=== PATIENT | female | born 1940 | race Caucasian/White ===

== ENCOUNTER 2021-06-11 12:15 | Emergency (ER) | payer MEDICARE, OTHER, SELFPAY ==
[2021-06-11 12:17] VITALS: BP 172/76; PULSE 66; RESP 17; TEMP 36.6; O2SAT 99; BMI 35.3
--- NOTE | 2021-06-11 12:32 | EKG12_ITS ---
Test Reason : NAUSEA/VOMITING Blood Pressure : / mmHG Vent. Rate : 061 BPM Atrial Rate : 061 BPM P-R Int : 174 ms QRS Dur : 098 ms QT Int : 418 ms P-R-T Axes : 036 008 022 degrees QTc Int : 420 ms Sinus rhythm with Premature supraventricular complexes Otherwise normal ECG Confirmed by LINDA MORSE, CHRISSY ([id number]), newspaper or periodical editor MAXIMO CALVO ([id number]) on 06/15/2021 9:17:45 AM Referred By: TRUONG Confirmed By:CHRISSY MCKEON MD
--- NOTE | 2021-06-11 12:33 | EX.ED.DYSGE1 ---
HPI History of Present Illness Chief Complaint: Nausea/Vomiting Informant: patient and spouse/S.O. Narrative Narrative: Patient presents with episode of vomiting and generalized weakness at home. It seems to be resolved now. At about 730 this morning she went to the bathroom. states she was in there for about 15 minutes so he checked on her. She had had a normal-appearing bowel movement without blood or diarrhea. She just stated that she did not feel well. He got her up and got her to the bed. After a while in bed, she stated that she felt like she was going to get sick. They got her up and she vomited into garbage can. He states it looked like normal yellow bile but did have a few dark specks in it. He did not see any blood. She never had chest pain. She denies abdominal pain. She feels back to normal now. Patient does have some dementia but I think she is able to give a reasonable history. She is certainly able to explain current symptoms or lack thereof. Patient is not on any blood thinners. Evidently no abnormal foods recently. The has not had any symptoms. She was not syncopal. Nothing specifically seem to make symptoms better or worse. [facility] Medical History Dementia Hypertension Kidney disease Home Medications cyanocobalamin (vitamin B-12) 1,000 mcg IM Q30D 12/10/16 [History Last Taken Unknown] donepezil 5 mg PO QHS 12/10/16 [History Last Taken 12/10/16] hydrocortisone acetate [Anusol Hc] 25 mg RECTAL BID PRN PRN 12/10/16 [History Last Taken 12/10/16] ibuprofen 200 mg PO Q6H PRN PRN 12/10/16 [History Last Taken Unknown] levothyroxine 112 mcg PO DAILY 12/10/16 [History Last Taken 12/10/16] metoprolol succinate [Toprol Xl] 25 mg PO DAILY 12/10/16 [History Last Taken 12/10/16] Allergy/AdvReac Type Severity Reaction Status Date / Time estrogens, conjugated Allergy Itching Verified 06/11/21 12:17 [From Premarin] medroxyprogesterone Allergy Unknown Verified 06/11/21 12:17 nitrofurantoin Allergy Itching Verified 06/11/21 12:17 [From Furadantin] sulfamethoxazole Allergy Swelling Verified 06/11/21 12:17 [From Bactrim] trimethoprim [From Bactrim] Allergy Swelling Verified 06/11/21 12:17 Social History Smoking Status: Former smoker ROS ROS ED Constitutional Constitutional ED: Denies chills, fever(s) or sweats Eyes Eyes: Denies blurry vision ENT ENT ED: Denies rhinorrhea or sore throat Cardiovascular Cardiovascular: Denies chest pain, palpitations or racing heartbeat Respiratory/Chest Respiratory/Chest: Denies cough or dyspnea Gastrointestinal Gastrointestinal: Reports nausea and vomiting; Denies abdominal pain, constipation, diarrhea or melena Genitourinary Genitourinary ED: Reports other Details: Denies any recent change in urine. ; Denies dysuria, hematuria or urinary frequency Musculoskeletal Musculoskeletal: Denies arthralgias, myalgias or neck pain Integumentary Denies rash Neurologic Neurologic: Denies headache(s) Psychiatric Psychiatric: Reports other Details: She does have history of dementia. ; Denies anxiety or depression Endocrine Endocrinology: Denies polydipsia or polyuria Allergic/Immunologic Allergic/Immunologic ED: Denies mouth swelling or urticaria EXAM Physical Exam Const Vital Signs: 06/11/21 12:17 06/11/21 15:29 Temperature 97.8 F Temperature Source Oral Pulse Rate 66 75 Respiratory Rate 17 18 Blood Pressure 172/76 H 155/81 H Blood Pressure Mean 108 105 Pulse Ox 99 98 Oxygen Delivery Method Room Air Room Air Positive well nourished and well developed Constitutional Narrative: Patient is sitting quietly in bed. She looks comfortable. She is nontoxic. She is pleasant. She is denying really any symptoms at this time. General Appearance ED: well developed and NAD; Negative for cyanotic, diaphoretic or pallor HEENT Reports moist mucous membranes Negative for trauma or tenderness Eyes General Eye ED: Negative for pale conjunctiva or scleral icterus Neck no JVD Chest Wall inspection of chest normal Resp normal respiratory effort and clear to auscultation bilaterally Effort and Inspection: Negative for pain with movement Auscultation: Negative for rales, rhonchi or wheezes Cardio regular rate and regular rhythm GI normal to inspection, nondistended, normoactive bowel sounds, non-tender and non-distended GI Narrative: Her abdomen is actually completely benign at this time. Of note, did bring in some emesis. It is darker brown liquid. He states it was yellow with some dark specks but he thinks he mixed up. It does not look red. Palpation: soft Back/Spine no CVA tenderness Extremity normal to inspection General Extremety ED: Negative for tenderness Neuro Neuro Narrative: Patient alert and appropriate. Reasonable informant. Baseline per . Sensorium / Orientation: alert Psych mental status grossly normal Skin no rashes or lesions noted and skin turgor normal General Skin Exam: Negative for jaundice or pallor MDM MDM MDM Narrative Medical decision making narrative: CBC is normal. Electrolytes show no marked abnormalities. Glucose is minimally up at 131. TSH is a little bit low but that can be followed up. She may need to alter her thyroid meds. This can be done as an outpatient. They will likely have a history of prior levels. Urine is clean. Troponin is negative. Patient is really asymptomatic at this point. They would like to go home. I think this is reasonable. We discussed reasons to return. Lab Data Attestation: I reviewed the patient's lab results. Labs: Laboratory Results - last 24 hr 06/11/21 06/11/21 06/11/21 12:52 12:52 15:20 WBC 7.0 RBC 4.49 Hgb 13.4 Hct 40.7 MCV 90.6 MCH 29.8 MCHC 32.9 RDW Std Deviation 42.5 RDW Coeff of Isa 12.8 Plt Count 242 MPV 10.7 Immature Gran % (Auto) 0.400 Neut % (Auto) 82.4 H Lymph % (Auto) 10.8 L [place] % (Auto) 5.1 Eos % (Auto) 0.9 Baso % (Auto) 0.4 Absolute Neuts (auto) 5.8 Absolute Lymphs (auto) 0.76 L Nucleated RBC % 0 Sodium 139 Potassium 3.7 Chloride 108 H Carbon Dioxide 28.0 Anion Gap 3 L BUN 15 Creatinine 0.96 Estim Creat Clear Calc 42.76 Est GFR (MDRD) Af Amer 72 Est GFR (MDRD) Non-Af 59 L BUN/Creatinine Ratio 15.6 Glucose 131 H Calcium 8.7 Total Bilirubin 0.60 AST 15 ALT 17 Alkaline Phosphatase 78 Troponin I High Sens 6 Total Protein 7.3 Albumin 3.7 Globulin 3.6 Albumin/Globulin Ratio 1.0 Lipase 334 TSH 0.16 L Urine Color Yellow Urine Clarity Clear Urine pH 6.0 Ur Specific [place] 1.015 Urine Protein Negative Urine Glucose (UA) Normal Urine Ketones 5 H Urine Occult Blood 50 H Urine Nitrite Negative Urine Bilirubin Negative Urine Urobilinogen Normal Ur Leukocyte Esterase 25 H EKG Initial EKG: Comments: EKG done for of generalized weakness nausea and vomiting. EKG read by me shows a normal sinus rhythm with occasional PAC and compensatory pause. Overall rate of 61. No acute ST elevation or depression consistent with infarct or ischemia. FL interval, QRS duration and QTc normal. No old for comparison Discharge Plan Triage Chief Complaint: Nausea/Vomiting ED Provider: Chandu Vann Dx/Rx/DC Orders Clinical Impression: Episodic weakness, Nausea & vomiting Instructions: ED Vomiting (Adult) Prescriptions: No Action donepezil 5 MG tablet 5 mg PO QHS RF: 0 metoprolol succinate [Toprol XL] 50 MG Tab.Er.24h 25 mg PO DAILY RF: 0 ibuprofen 200 MG capsule 200 mg PO Q6H PRN PRN (Reason: Pain) RF: 0 hydrocortisone acetate [Anucort-HC] 25 MG Suppos. 25 mg RECTAL BID PRN PRN (Reason: Hemorrhoids) RF: 0 cyanocobalamin (vitamin B-12) 1,000 MCG/ML Vial 1,000 mcg IM Q30D RF: 0 levothyroxine 112 MCG tablet 112 mcg PO DAILY RF: 0 Primary Care Provider: Yaneth Bernal Referrals: Yaneth Bernal MD [Primary Care Provider] - 3-5 Days Activity Restrictions/Additional Instructions: Follow-up with your physician. They may need adjustment of your thyroid medications. That can be done as an outpatient. Disposition Disposition: Home, Self Care
[2021-06-11 13:04] LABS: Absolute Lymphocyte Count 0.76 X10^3/uL (0.83-4.51); Absolute Neutrophil Count 5.8 X10^3/uL (2.0-7.7); Basophil# 0.03 X10^3/uL; Basophil% 0.4 % (0-1); Eosinophil# 0.06 X10^3/uL; Eosinophils% 0.9 % (0-5); Hematocrit 40.7 % (37-47); Hemoglobin 13.4 g/dL (12.0-15.0); Lymphocyte # 0.76 X10^3/ul (0.83-4.51); Lymphocyte % 10.8 % (19-41); Mean Corp Hgb Conc 32.9 g/dL (32-36); Mean Corpuscular Hgb 29.8 pg (27.0-32.0); Mean Corpuscular Volume 90.6 fL (81-99); Mean Platelet Vol. 10.7 fl (6.2-12.0); Monocyte# 0.36 X10^3/uL; Monocyte% 5.1 % (0-10); NRBC Flagged by Analyzer 0 % (0-5); Neutrophil # 5.77 X10^3/uL (2.7-7.7); Neutrophil % 82.4 % (47-70); Platelet Count 242 K/mm3 (150-450); RBC Distribution Width CV 12.8 % (11.6-14.6); RBC Distribution Width SD 42.5 fl (35.1-43.9); Red Blood Count 4.49 M/mm3 (4.2-5.4)
[2021-06-11 13:29] LABS: AST(SGOT) 15 U/L (15-37); Alanine Aminotransfer ALT/SGPT 17 U/L (13-56); Albumin, Serum 3.7 g/dL (3.2-5.0); Alkaline Phosphatase 78 U/L (45-117); Anion Gap 3 (5-15); BUN 15 mg/dL (7-18); BUN/Creat Ratio 15.6 RATIO (10-20); Calcium,Total 8.7 mg/dL (8.5-10.1); Chloride 108 mmol/L (98-107); Creatinine, Serum 0.96 mg/dL (0.55-1.02); EST Glomerular Filtration Rate 59 mL/min (>60); Est Glom Filt Rate - Afr Amer 72 mL/min (>60); Estimated Creatinine Clearance 42.76 ml/min; Globulin 3.6 g/dL (2.2-4.2); Glucose 131 mg/dL (74-106); Lipase 334 U/L (73-393); Potassium 3.7 mmol/L (3.5-5.1); Protein, Total 7.3 g/dL (6.4-8.2); Sodium Level 139 mmol/L (136-145); Thyroid Stim Hormone (TSH) 0.16 uIU/mL (0.358-3.74); Troponin-I HS 6 pg/mL (3.0-54.0)
[2021-06-11 15:25] LABS: Bacteria 0 SEEN /hpf (None Seen); Mucous, Urine 0 SEEN /hpf (<or=2+); Squamous Epithelial Cells - UA 0 SEEN /hpf (5-10)
[2021-06-11 15:29] VITALS: BP 155/81; PULSE 75; RESP 18; O2SAT 98
[2021-06-11 15:32] LABS: Color, Urine Yellow (Yellow); Glucose, Dipstick Normal (Normal); Ketone-Dipstick 5 mg/dl (Negative); Leukocyte Esterase-Dipstick 25 /ul (Negative); Nitrite-Dipstick Negative (Negative); Occult Blood-Urine 50 /ul (Negative); Protein-Dipstick Negative (Negative); Specific Gravity, Urine 1.015 (1.002-1.030); Urine Bilirubin Dipstick Negative (Negative); Urine Clarity Clear (Clear); Urine Urobilinogen Normal (Normal)
[2021-06-11 15:42] LABS: Red Blood Cells-Urine 0-5 SEEN /hpf (0-5); White Blood Cells 0-5 SEEN /hpf (0-5)
[2021-06-11 15:54] VITALS: BP 158/73; PULSE 84; RESP 16; O2SAT 99
== END 2021-06-11 15:56 | disposition home or self-care (01) ==
PROVIDERS: Emergency Provider Emergency Medicine; PCP Internal Medicine; Visit Provider Emergency Medicine
DX: R11.2 Nausea with vomiting, unspecified (principal); F03.90 Unspecified dementia, unspecified severity, without behavioral disturbance, psychotic disturbance, mood disturbance, and anxiety; R53.1 Weakness; I10 Essential (primary) hypertension; Z79.899 Other long term (current) drug therapy; Z87.891 Personal history of nicotine dependence
CPT/HCPCS: 80053; 81001; 82271; 83690; 84443; 84484; 85025; 93005; 99285

== ENCOUNTER 2023-08-19 14:56 | Emergency (ER) | payer MEDICARE, OTHER, SELFPAY ==
[2023-08-19 14:56] VITALS: BP 139/81; PULSE 77; RESP 16; TEMP 35.5; O2SAT 97; BMI 29.3
--- NOTE | 2023-08-19 15:52 | CT_ITS ---
EXAM: CT ABDOMEN AND PELVIS WITH INTRAVENOUS CONTRAST CLINICAL INDICATION: Abdominal Pain TECHNIQUE: Helically acquired images were obtained of the abdomen and pelvis with intravenous contrast. This CT exam was performed using one or more of the following dose reduction techniques: automated exposure control, adjustment of the mA and/or kV according to patient size, and/or use of iterative reconstruction technique. CONTRAST: IV 100mL Isovue-370 RADIATION DOSE: CTDIvol = 15.92 mGy, DLP = 753.38 mGy-cm COMPARISON: No relevant prior studies available. FINDINGS: LOWER THORAX: Unremarkable. Lung bases are clear. No cardiomegaly. No significant pericardial effusion. ABDOMEN: LIVER: Unremarkable. Homogeneous. No focal mass. GALLBLADDER AND BILE DUCTS: Cholecystectomy. No intra- or extrahepatic biliary ductal dilation. PANCREAS: Unremarkable. No focal cystic or solid mass. SPLEEN: Unremarkable. Normal size without focal cystic or solid mass. ADRENALS: Unremarkable. No nodules. KIDNEYS AND URETERS: No acute renal abnormalities. Bilateral simple renal cysts. Normal renal size and position. No hydronephrosis. STOMACH AND BOWEL: Evaluation of the GI tract is limited by absence of oral contrast. Cannot exclude stomach wall thickening. No dilated loops of bowel or evidence for obstruction. Cannot exclude segmental thickening of the rojo of the small or large bowel. Cannot exclude enteritis or colitis. Moderate diffuse fecal retention. Diverticulosis without definite diverticulitis. Appendix within normal limits. PELVIS: APPENDIX: No evidence of acute appendicitis. BLADDER: Unremarkable. REPRODUCTIVE: Absent uterus. ABDOMEN and PELVIS: INTRAPERITONEAL SPACE: Unremarkable. No ascites or other fluid collection. No free air. BONES/JOINTS: Degenerative changes throughout the spine. No suspicious lytic or blastic abnormality. SOFT TISSUES: Unremarkable. No discrete abdominal or pelvic wall hernia. VASCULATURE: Tortuous calcified aorta and iliac arteries with no aneurysm. LYMPH NODES: Unremarkable. No enlarged lymph nodes. CT/Abdomen/Pelvis W IV Cont ONLY IMPRESSION: No definite acute or significant abnormality seen. Electronically Signed: Stan Baca MD at 19:57 EDT ,
--- NOTE | 2023-08-19 15:53 | EDS_ITS ---
HPI HPI - GI History of Present Illness Chief Complaint: Abd Pain Narrative Narrative: History and physical limited secondary to dementia. 83 year old female presents to the ED with her for abdominal pain that she has had intermittently for the last 2 weeks. It has become more constant over the last few days. She has not had fever or chills, but reports she had one episode of vomiting bile yesterday. Today, she had 2 episodes of severe pain. They lasted 30-45 minutes each. Last normal bowel movement was today. No exacerbating or alleviating factors. Past abdominal surgery includes cholecystectomy. [facility] Medical History Kidney disease Hypertension Dementia Home Medications ?Medication ?Instructions ?Recorded ?Last Taken ?Type cyanocobalamin (vitamin B-12) 1,000 mcg IM Q30D 12/10/16 Unknown History 1,000 mcg/mL injection solution donepezil 5 mg tablet 5 mg PO QHS 12/10/16 12/10/16 History hydrocortisone acetate 25 mg 25 mg RECTAL BID PRN PRN 12/10/16 12/10/16 History rectal suppository (Anucort-HC) Hemorrhoids ibuprofen 200 mg capsule 200 mg PO Q6H PRN PRN Pain 12/10/16 Unknown History levothyroxine 112 mcg tablet 112 mcg PO DAILY 12/10/16 12/10/16 History metoprolol succinate 50 mg 25 mg PO DAILY 12/10/16 12/10/16 History tablet,extended release 24 hr (Toprol XL) Allergy/AdvReac Type Severity Reaction Status Date / Time estrogens, conjugated (From Allergy Itching Verified 06/11/21 12:17 Premarin) medroxyprogesterone Allergy Unknown Verified 06/11/21 12:17 nitrofurantoin (From Allergy Itching Verified 06/11/21 12:17 Furadantin) sulfamethoxazole (From Allergy Swelling Verified 06/11/21 12:17 Bactrim) trimethoprim (From Bactrim) Allergy Swelling Verified 06/11/21 12:17 Surgical History no surgical history no surgical history (Prior Cholecystectomy) Social History Smoking Status: Former smoker ROS ROS ED ROS Narrative No fevers or chills, no chest pain or shortness of breath. 1 episode of nausea and vomiting, bilious. No problems with bowel movements, no diarrhea. Positive epigastric to periumbilical pain. EXAM Physical Exam Narrative Exam Narrative: Afebrile. Vital signs noted. Nontoxic appearing. Regular rate and rhythm. Lungs clear to auscultation bilaterally. Abdomen soft with normoactive bowelsounds. Neurological exam nonfocal and non lateralizing. Consistent with dementia. Const Vital Signs: 08/19/23 14:56 08/19/23 16:56 08/19/23 18:00 Temperature 96 F L Temperature Source Temporal Pulse Rate 77 75 64 Respiratory Rate 16 16 16 Blood Pressure 139/81 H 128/79 H 161/78 H Blood Pressure Mean 100 95 105 Pulse Ox 97 97 98 Oxygen Delivery Method Room Air Room Air Room Air MDM MDM MDM Narrative Medical decision making narrative: Concern is for intrabominal pathology including pancreatitis versus partial small bowel obstruction versus gastroenteritis vs incarcerated hernia. Comprehe nsive workup was pursued. Patient declined analgesics or antiemetics as her pain has improved from earlier today. I reviewed the laboratory work from today and she has normal white count of 7.2, hemoglobin 12.9, hematocrit 40.3, platelet count normal at 249. CMP is remarkable for a BUN of 20 and creatinine 1.06, AST low at 12 with ALT 13 and alk phos normal at 73. Lipase is normal at 62 so I doubt pancreatitis. Urinalysis is negative for ketones, negative for infection. I do not feel antibiotics are indicated. There was a delay in the CT read secondary to IT issues. Her CT has returned and there is no acute process, no obstruction, she does have diffuse stool throughout the colon. At this point in time, I do not feel she requires hospitalization or emergent surgery consultation. She has gotten dressed and is ready to leave because she wants to be discharged. She stated on reexamination that she feels well. I do think that some of her pain may have been from hospital shuttling. I feel she can be discharged safely home with follow-up. She will start [id number] MiraLAX and stool softeners. Follow-up with her primary care provider. Return instructions were reviewed. Disposition is discharged home in stable condition. History & Record Review Discussion w/independent historian: Patient and Family () Lab Data Attestation: I reviewed the patient's lab results. Labs: Laboratory Results - last 24 hr 08/19/23 08/19/23 16:00 17:15 WBC 7.2 RBC 4.48 Hgb 12.9 Hct 40.3 MCV 90.0 MCH 28.8 MCHC 32.0 RDW Std Deviation 42.2 RDW Coeff of Isa 12.7 Plt Count 249 MPV 10.4 Immature Gran % (Auto) 0.300 Neut % (Auto) 58.9 Lymph % (Auto) 26.2 [place] % (Auto) 10.2 H Eos % (Auto) 3.6 Baso % (Auto) 0.8 Absolute Neuts (auto) 4.2 Absolute Lymphs (auto) 1.88 Nucleated RBC % 0 Sodium 140 Potassium 3.9 Chloride 106 Carbon Dioxide 27.0 Anion Gap 7 BUN 20 H Creatinine 1.06 H Estim Creat Clear Calc 43.48 Est GFR (MDRD) Af Amer 64 Est GFR (MDRD) Non-Af 53 L BUN/Creatinine Ratio 18.9 Glucose 105 Calcium 10.2 H Total Bilirubin 0.50 AST 12 L ALT 13 Alkaline Phosphatase 73 Troponin I High Sens 7 Total Protein 7.1 Albumin 3.6 Globulin 3.5 Albumin/Globulin Ratio 1.0 Lipase 62 Urine Color Yellow Urine Clarity Clear Urine pH 6.0 Ur Specific [place] 1.015 Urine Protein Negative Urine Glucose (UA) Normal Urine Ketones Negative Urine Occult Blood 25 H Urine Nitrite Negative Urine Bilirubin Negative Urine Urobilinogen Normal Ur Leukocyte Esterase 100 H Urine RBC 0-5 SEEN Urine WBC 0-5 SEEN Ur Squamous Epith Cells 0 SEEN Urine Bacteria 0 SEEN Urine Mucus 0 SEEN Radiography Diagnostic Testing: Clinical Impression(s) from Imaging Studies Abdomen/Pelvis CT 08/19/23 15:52 IMPRESSION: No definite acute or significant abnormality seen. Electronically Signed: Stan Baca MD at 19:57 EDT , Discharge Plan Triage Chief Complaint: Abd Pain ED Provider: Fabio Orozco Dx/Rx/DC Orders Clinical Impression: Abdominal pain, Constipation Instructions: ED Abdominal Pain Unkn Cause Fem, ED Constipation (Adult) Prescriptions: No Action donepezil 5 MG tablet 5 mg PO QHS metoprolol succinate [Toprol XL] 50 MG tablet extended release 24 hr 25 mg PO DAILY ibuprofen 200 MG capsule 200 mg PO Q6H PRN PRN (Reason: Pain) hydrocortisone acetate [Anucort-HC] 25 MG suppository 25 mg RECTAL BID PRN PRN (Reason: Hemorrhoids) cyanocobalamin (vitamin B-12) 1,000 MCG/ML solution 1,000 mcg IM Q30D levothyroxine 112 MCG tablet 112 mcg PO DAILY Primary Care Provider: Yaneth Bernal Referrals: Yaneth Bernal MD [Primary Care Provider] - 3-5 Days Print Language: Yakut Disposition Disposition: Home, Self Care
[2023-08-19] MEDS: 0.9% Normal Saline (1000mL) 1,000 ML 999 ML IV (16:03)
[2023-08-19 16:08] LABS: Absolute Lymphocyte Count 1.88 X10^3/uL (0.83-4.51); Absolute Neutrophil Count 4.2 X10^3/uL (2.0-7.7); Basophil# 0.06 X10^3/uL; Basophil% 0.8 % (0-1); Eosinophil# 0.26 X10^3/uL; Eosinophils% 3.6 % (0-5); Hematocrit 40.3 % (37-47); Hemoglobin 12.9 g/dL (12.0-15.0); Lymphocyte # 1.88 X10^3/ul (0.83-4.51); Lymphocyte % 26.2 % (19-41); Mean Corpuscular Hgb 28.8 pg (27.0-32.0); Mean Platelet Vol. 10.4 fl (6.2-12.0); Monocyte# 0.73 X10^3/uL; Monocyte% 10.2 % (0-10); NRBC Flagged by Analyzer 0 % (0-5); Neutrophil # 4.23 X10^3/uL (2.7-7.7); Neutrophil % 58.9 % (47-70); Platelet Count 249 K/mm3 (150-450); RBC Distribution Width CV 12.7 % (11.6-14.6); RBC Distribution Width SD 42.2 fl (35.1-43.9); Red Blood Count 4.48 M/mm3 (4.2-5.4); White Blood Count 7.2 K/mm3 (4.4-11.0)
[2023-08-19 16:29] LABS: AST(SGOT) 12 U/L (15-37); Alanine Aminotransfer ALT/SGPT 13 U/L (13-56); Albumin, Serum 3.6 g/dL (3.2-5.0); Alkaline Phosphatase 73 U/L (45-117); Anion Gap 7 (5-15); BUN 20 mg/dL (7-18); BUN/Creat Ratio 18.9 RATIO (10-20); Calcium,Total 10.2 mg/dL (8.5-10.1); Chloride 106 mmol/L (98-107); Creatinine, Serum 1.06 mg/dL (0.55-1.02); EST Glomerular Filtration Rate 53 mL/min (>60); Est Glom Filt Rate - Afr Amer 64 mL/min (>60); Estimated Creatinine Clearance 43.48 ml/min; Globulin 3.5 g/dL (2.2-4.2); Glucose 105 mg/dL (74-106); Lipase 62 U/L (13-75); Potassium 3.9 mmol/L (3.5-5.1); Protein, Total 7.1 g/dL (6.4-8.2); Sodium Level 140 mmol/L (136-145); Troponin-I HS 7 pg/mL (3.0-54.0)
[2023-08-19 16:56] VITALS: BP 128/79; PULSE 75; RESP 16; O2SAT 97
[2023-08-19 17:18] LABS: Bacteria 0 SEEN /hpf (None Seen); Mucous, Urine 0 SEEN /hpf (<or=2+); Squamous Epithelial Cells - UA 0 SEEN /hpf (5-10)
[2023-08-19 17:21] LABS: Color, Urine Yellow (Yellow); Glucose, Dipstick Normal (Normal); Ketone-Dipstick Negative (Negative); Leukocyte Esterase-Dipstick 100 /ul (Negative); Nitrite-Dipstick Negative (Negative); Occult Blood-Urine 25 /ul (Negative); Protein-Dipstick Negative (Negative); Specific Gravity, Urine 1.015 (1.002-1.030); Urine Bilirubin Dipstick Negative (Negative); Urine Clarity Clear (Clear); Urine Urobilinogen Normal (Normal)
[2023-08-19 17:27] LABS: Red Blood Cells-Urine 0-5 SEEN /hpf (0-5); White Blood Cells 0-5 SEEN /hpf (0-5)
[2023-08-19 18:00] VITALS: BP 161/78; PULSE 64; RESP 16; O2SAT 98
== END 2023-08-19 21:06 | disposition home or self-care (01) ==
PROVIDERS: Emergency Provider Emergency Medicine; PCP Internal Medicine; Visit Provider Emergency Medicine
DX: K59.00 Constipation, unspecified (principal); F03.90 Unspecified dementia, unspecified severity, without behavioral disturbance, psychotic disturbance, mood disturbance, and anxiety; I10 Essential (primary) hypertension; Z90.49 Acquired absence of other specified parts of digestive tract; Z79.899 Other long term (current) drug therapy; Z87.891 Personal history of nicotine dependence
CPT/HCPCS: 74177; 80053; 81001; 83690; 84484; 85025; 96360; 96361; 99283; J7030; Q9967; A4216

== ENCOUNTER 2023-11-22 14:15 | Emergency (ER) | payer MEDICARE, OTHER, SELFPAY ==
[2023-11-22 14:16] VITALS: BP 160/75; PULSE 62; RESP 22; TEMP 36.4; O2SAT 98; BMI 30.5
[2023-11-22 15:08] LABS: Absolute Neutrophil Count 9.5 X10^3/uL (2.0-7.7); Basophil# 0.08 X10^3/uL; Basophil% 0.6 % (0-1); Eosinophils% 2.4 % (0-5); Hematocrit 34.6 % (37-47); Hemoglobin 10.6 g/dL (12.0-15.0); Lymphocyte % 9.7 % (19-41); Mean Corp Hgb Conc 30.6 g/dL (32-36); Mean Corpuscular Hgb 27.2 pg (27.0-32.0); Mean Corpuscular Volume 88.7 fL (81-99); Monocyte# 1.27 X10^3/uL; Monocyte% 10.3 % (0-10); NRBC Flagged by Analyzer 0 % (0-5); Neutrophil # 9.45 X10^3/uL (2.7-7.7); Neutrophil % 76.4 % (47-70); Platelet Count 389 K/mm3 (150-450); RBC Distribution Width CV 15.2 % (11.6-14.6); RBC Distribution Width SD 48.7 fl (35.1-43.9); White Blood Count 12.4 K/mm3 (4.4-11.0)
[2023-11-22 15:21] LABS: Anion Gap 4 (5-15); BUN 15 mg/dL (7-18); BUN/Creat Ratio 13.6 RATIO (10-20); Calcium,Total 9.4 mg/dL (8.5-10.1); Chloride 109 mmol/L (98-107); EST Glomerular Filtration Rate 51 mL/min (>60); Est Glom Filt Rate - Afr Amer 61 mL/min (>60); Estimated Creatinine Clearance 42.75 ml/min; Glucose 117 mg/dL (74-106); Potassium 3.8 mmol/L (3.5-5.1); Sodium Level 141 mmol/L (136-145)
[2023-11-22 15:33] LABS: Color, Urine Yellow (Yellow); Glucose, Dipstick Normal (Normal); Ketone-Dipstick 5 mg/dl (Negative); Leukocyte Esterase-Dipstick 500 /ul (Negative); Nitrite-Dipstick Negative (Negative); Occult Blood-Urine 250 /ul (Negative); Protein-Dipstick 30 mg/dl (Negative); Specific Gravity, Urine 1.025 (1.002-1.030); Urine Clarity Sl. Cloudy (Clear); Urine Urobilinogen 4 mg/dl (Normal)
--- NOTE | 2023-11-22 15:33 | CT_ITS ---
STUDY: CT ABDOMEN AND PELVIS WITHOUT CONTRAST REASON FOR EXAM: Female, 83 years old. right flank pain RADIATION DOSAGE (If Supplied By Facility): CTDIvol = ( 11.18 ) mGy, DLP = ( 597.66 ) mGycm TECHNIQUE: Transaxial images were obtained from the dome of the diaphragm to the symphysis pubis without oral contrast, and without intravenous contrast. Sagittal and coronal images were reconstructed. Individualized dose optimization techniques were used for this CT. The protocol utilizes one or more of the following dose reduction techniques: automated exposure control, adjustment of mA and/or kV according to patient size,and/or use of iterative reconstruction technique. COMPARISON: None. FINDINGS: The visualized lung bases are unremarkable. Calcific coronary artery disease and cardiomegaly. Trace pericardial effusion. Normal liver. Gallbladder surgically absent. Normal spleen. Normal pancreas. Normal bilateral adrenal glands. 25 x 14 mm simple right renal cyst. No further follow-up required as it appears simple/benign. Possible mild right hydronephrosis. Punctate 1 mm ureterolith is noted near the ureterovesicular junction within the bladder. Normal left kidney. Normal visualized stomach. Normal small intestine. Colonic diverticulosis. Appendix not identified. Calcified plaque along the aorta and its branches. Normal inferior vena cava. Normal retroperitoneum. Fat-containing umbilical hernia. Grade [address] L4-5. CT/Abdomen/Pelvis without Cont IMPRESSION: Mild right hydronephrosis due to a 1 mm ureterolith near the UVJ possibly passed within the bladder. Electronically Signed: Arian Hairston MD at 16:55 EDT ,
--- NOTE | 2023-11-22 15:34 | EX.ED.DYSGE1 ---
HPI History of Present Illness Chief Complaint: Flank Pain Informant: patient and spouse/S.O. Narrative Narrative: History of dementia informant from spouse. 1 PM sitting there resting sudden pain in her right flank. No trauma no pain down the legs. No history of kidney stones. She is brought in by her . Patient denies urinary symptoms. Denies nausea vomiting. Denies fevers. Reports cough since being diagnosed with COVID on and off since [place], 8 months ago. Patient is baseline per spouse. Prior similar symptoms: No PFSH PFSH Medical History Kidney disease Hypertension Dementia Home Medications ?Medication ?Instructions ?Recorded ?Last Taken ?Type cyanocobalamin (vitamin B-12) 1,000 mcg IM Q30D 12/10/16 Unknown History 1,000 mcg/mL injection solution donepezil 5 mg tablet 5 mg PO QHS 12/10/16 12/10/16 History hydrocortisone acetate 25 mg 25 mg RECTAL BID PRN PRN 12/10/16 12/10/16 History rectal suppository (Anucort-HC) Hemorrhoids ibuprofen 200 mg capsule 200 mg PO Q6H PRN PRN Pain 12/10/16 Unknown History levothyroxine 112 mcg tablet 112 mcg PO DAILY 12/10/16 12/10/16 History metoprolol succinate 50 mg 25 mg PO DAILY 12/10/16 12/10/16 History tablet,extended release 24 hr (Toprol XL) cefdinir 300 mg capsule 300 mg PO Q12H #14 caps 11/22/23 Unknown Rx Allergy/AdvReac Type Severity Reaction Status Date / Time estrogens, conjugated (From Allergy Itching Verified 11/22/23 14:16 Premarin) medroxyprogesterone Allergy Unknown Verified 11/22/23 14:16 nitrofurantoin (From Allergy Itching Verified 11/22/23 14:16 Furadantin) sulfamethoxazole (From Allergy Swelling Verified 11/22/23 14:16 Bactrim) trimethoprim (From Bactrim) Allergy Swelling Verified 11/22/23 14:16 Social History Smoking Status: Former smoker ROS ROS ED Constitutional Constitutional ED: Denies chills, fever(s) or sweats Eyes Eyes: Denies change in vision ENT ENT ED: Denies dysphagia or sore throat Cardiovascular Cardiovascular: Denies chest pain, leg edema, palpitations or racing heartbeat Respiratory/Chest Respiratory/Chest: Reports cough; Denies dyspnea or dyspnea on exertion Gastrointestinal Gastrointestinal: Denies abdominal pain, diarrhea, nausea or vomiting Genitourinary Genitourinary ED: Denies dysuria, hematuria or urinary frequency Musculoskeletal Musculoskeletal: Reports back pain; Denies extremity pain or neck pain Integumentary Denies rash or wounds Neurologic Neurologic: Denies headache(s), paresthesias or weakness EXAM Physical Exam Const Vital Signs: 11/22/23 14:16 11/22/23 16:16 11/22/23 18:00 Temperature 97.6 F L Temperature Source Temporal Pulse Rate 62 81 84 Respiratory Rate 22 H 18 18 Blood Pressure 160/75 H 144/86 H 132/76 H Blood Pressure Mean 103 105 94 Pulse Ox 98 98 98 Oxygen Delivery Method Room Air Room Air Room Air 11/22/23 18:27 Temperature 97.1 F L Temperature Source Pulse Rate 84 Respiratory Rate 18 Blood Pressure 132/76 H Blood Pressure Mean 94 Pulse Ox 98 Oxygen Delivery Method Positive well nourished and well developed Constitutional Narrative: Nontoxic General Appearance ED: well developed and NAD HEENT Reports moist mucous membranes normocephalic and atraumatic Eyes EOMs intact bilaterally and conjunctivae normal General Eye ED: Yes normal appearance of both eyes Neck no lymphadenopathy and supple General: Negative for tenderness Chest Wall Chest: Negative for tenderness Resp normal respiratory effort and normal air movement Effort and Inspection: symmetric chest movement; Negative for respiratory distress Cardio regular rate, regular rhythm and no murmurs Peripheral Pulses: pulses 2+ throughout GI normal to inspection, nondistended, normoactive bowel sounds and non-tender Palpation: Negative for guarding or rebound tenderness present Back/Spine no CVA tenderness and no thoracic nor lumbar tenderness Back/Spine Narrative: No rash in the back region. Extremity normal to inspection General Extremety ED: Negative for edema or tenderness General Extremity: Negative for edema Neuro no sensory deficits noted Neuro Narrative: Alert to person. Unaware of place or time. This is baseline per spouse. Sensorium / Orientation: awake and alert Skin no rashes or lesions noted and no wounds MDM MDM MDM Narrative Medical decision making narrative: Interventions / MDM: Differential diagnosis: Kidney stone, UTI, dementia Diagnosis considered but do not suspect: Pneumonia however chest x-ray negative. My EKG interpretation: N/A Imaging independently reviewed and interpreted by myself: CT abdomen pelvis: 1 mm UVJ stone versus currently in the bladder right side. Also read by radiology. External documents reviewed: N/A Test considered but not ordered:N/A ED course: Vital stable, currently asymptomatic. She has baseline mental status to person per spouse. Labs were ordered and urine ordered from nursing protocol. Started gentle fluids. Flank CT ordered for further evaluation. Two-view chest x-ray with cough history. Labs stable white count 12.4. Creatinine 1.1. Urine with signs of infection and blood. Urine culture sent started on Rocephin. CT scan concerns 1 mm stone currently UVJ or bladder. Reevaluation clinically no return of pains nontoxic. Discussed findings with spouse. Discussed continuing antibiotics at this time. Cefdinir written for 7 days. Patient currently nontoxic no return of symptoms. Consider admission however clinically stable at this time. Discussed strict return precautions. All questions were answered. Re-evaluation: stable Disposition discussed with patient/family/significant other: Patient and spouse Case discussed with consulting clinician: N/A This note was generated with [employer] dictation software. It may contain incorrect words, spelling, and punctuation that were not noted in checking the note before signing. Lab Data Attestation: I reviewed the patient's lab results. Labs: Laboratory Results - last 24 hr 11/22/23 11/22/23 14:44 14:57 WBC 12.4 H RBC 3.90 L Hgb 10.6 L Hct 34.6 L MCV 88.7 MCH 27.2 MCHC 30.6 L RDW Std Deviation 48.7 H RDW Coeff of Isa 15.2 H Plt Count 389 MPV 10.0 Immature Gran % (Auto) 0.600 Neut % (Auto) 76.4 H Lymph % (Auto) 9.7 L [place] % (Auto) 10.3 H Eos % (Auto) 2.4 Baso % (Auto) 0.6 Absolute Neuts (auto) 9.5 H Absolute Lymphs (auto) 1.20 Nucleated RBC % 0 Sodium 141 Potassium 3.8 Chloride 109 H Carbon Dioxide 28.0 Anion Gap 4 L BUN 15 Creatinine 1.10 H Estim Creat Clear Calc 42.75 Est GFR (MDRD) Af Amer 61 Est GFR (MDRD) Non-Af 51 L BUN/Creatinine Ratio 13.6 Glucose 117 H Calcium 9.4 Urine Color Yellow Urine Clarity Sl. Cloudy Urine pH 5.0 Ur Specific [place] 1.025 Urine Protein 30 H Urine Glucose (UA) Normal Urine Ketones 5 H Urine Occult Blood 250 H Urine Nitrite Negative Urine Bilirubin 1 H Urine Urobilinogen 4 H Ur Leukocyte Esterase 500 H Urine RBC 10-25 SEEN Urine WBC 50-100 SEEN Ur Squamous Epith Cells 25-50 SEEN Ur Renal Epithelial Cell 0-5 SEEN Amorphous Sediment 1+ Urine Bacteria 1+ Urine Mucus 1+ Radiography Diagnostic Testing: Clinical Impression(s) from Imaging Studies Abdomen/Pelvis CT 11/22/23 15:33 IMPRESSION: Mild right hydronephrosis due to a 1 mm ureterolith near the UVJ possibly passed within the bladder. Electronically Signed: Arian Hairston MD at 16:55 EDT Reading Location ID and State: [facility] / [place] Tel , Service support , Chest X-Ray 11/22/23 16:00 IMPRESSION: Normal x-ray examination of the chest. Electronically Signed: Arian Hairston MD at 17:05 EDT Reading Location ID and State: [employer] / [place] Tel , Service support , Discharge Plan Triage Chief Complaint: Flank Pain ED Provider: Silver Durbin Dx/Rx/DC Orders Clinical Impression: Acute UTI, Kidney stone on right side, Dementia Instructions: Urinary Tract Infections in Women, ED Kidney Stone, Passed Prescriptions: New cefdinir 300 mg capsule 300 mg PO Q12H Qty: 14 0RF No Action donepezil 5 MG tablet 5 mg PO QHS metoprolol succinate [Toprol XL] 50 MG tablet extended release 24 hr 25 mg PO DAILY ibuprofen 200 MG capsule 200 mg PO Q6H PRN PRN (Reason: Pain) hydrocortisone acetate [Anucort-HC] 25 MG suppository 25 mg RECTAL BID PRN PRN (Reason: Hemorrhoids) cyanocobalamin (vitamin B-12) 1,000 MCG/ML solution 1,000 mcg IM Q30D levothyroxine 112 MCG tablet 112 mcg PO DAILY Primary Care Provider: Yaneth Bernal Referrals: Yaneth Bernal MD [Primary Care Provider] - 1 Week Activity Restrictions/Additional Instructions: CT scan with a 1 mm stone in your bladder. Urine with infection culture sent. Take and finish antibiotic prescribed. You develop fevers worsening symptoms, return to the ED for reevaluation. Print Language: [place] Disposition Disposition: Home, Self Care Discharge Date/Time: 11/22/23 18:28
[2023-11-22] MEDS: 0.9% Normal Saline (500mL Bag) 500 ML 999 ML IV (15:38)
[2023-11-22 15:44] LABS: Urine Bilirubin Dipstick 1 mg/dL (Negative)
[2023-11-22 15:52] LABS: Squamous Epithelial Cells - UA 25-50 SEEN /hpf (5-10)
[2023-11-22 15:53] LABS: Red Blood Cells-Urine 10-25 SEEN /hpf (0-5); White Blood Cells 50-100 SEEN /hpf (0-5)
[2023-11-22 15:54] LABS: Amorphous Sediment 1+; Bacteria 1+ /hpf (None Seen); Mucous, Urine 1+ /hpf (<or=2+); Renal Epithelial Cells 0-5 SEEN /hpf (0-5)
--- NOTE | 2023-11-22 16:00 | RAD_ITS ---
STUDY: X-RAY CHEST REASON FOR EXAM: Female, 83 years old. cough TECHNIQUE: Frontal and lateral views of the chest. COMPARISON: None. FINDINGS: The lungs are clear and expanded. There is no demonstrated pleural abnormality. Normal size heart. Normal mediastinum and deidra. Normal visualized pulmonary arteries. Normal visualized aortic arch and descending thoracic aorta. Normal visualized thoracic spine. Normal visualized ribs, clavicles, and shoulders. There is no demonstrated abnormality of the visualized soft tissue structures of the upper abdomen. RAD/Chest PA and Lateral IMPRESSION: Normal x-ray examination of the chest. Electronically Signed: Arian Hairston MD at 17:05 EDT ,
[2023-11-22 16:16] VITALS: BP 144/86; PULSE 81; RESP 18; O2SAT 98
[2023-11-22] MEDS: Ceftriaxone 1 GM/50 ML BAG IV (17:17)
[2023-11-22 18:00] VITALS: BP 132/76; PULSE 84; RESP 18; O2SAT 98
[2023-11-22 18:27] VITALS: BP 132/76; PULSE 84; RESP 18; TEMP 36.2; O2SAT 98
== END 2023-11-22 18:28 | disposition home or self-care (01) ==
PROVIDERS: Emergency Provider Emergency Medicine; PCP Internal Medicine; Visit Provider Emergency Medicine
DX: N39.0 Urinary tract infection, site not specified (principal); F03.90 Unspecified dementia, unspecified severity, without behavioral disturbance, psychotic disturbance, mood disturbance, and anxiety; N21.0 Calculus in bladder; I10 Essential (primary) hypertension; R05.3 Chronic cough; U09.9 Post COVID-19 condition, unspecified; Z79.899 Other long term (current) drug therapy; Z87.891 Personal history of nicotine dependence
CPT/HCPCS: 71046; 74176; 80048; 81001; 85025; 87077; 87086; 87088; 87186; 96361; 96365; 99283; J7040; J7050; A4216

== ENCOUNTER 2025-02-27 11:40 | Emergency (ER) | payer MEDICARE, OTHER, SELFPAY ==
[2025-02-27] VITALS (7 sets, daily range): BP systolic 121–148; BP diastolic 69–122; PULSE 74–94; RESP 14–18; TEMP 36.6–36.7; O2SAT 96–100; BMI 30.4
--- NOTE | 2025-02-27 12:26 | RAD_ITS ---
PROCEDURE: CHEST 1 VIEW (PORTABLE) 02/27/2025 REASON FOR EXAM: WEAKNESS, FALL TECHNIQUE: Frontal view of the chest. COMPARISON: 11/22/2023. FINDINGS: The heart borders are unremarkable. The lungs are hypoaerated limiting assessment. Ill-defined right basilar opacity which may represent atelectasis. No acute osseous abnormalities. RAD/Chest 1 View (Portable) IMPRESSION: No Acute Findings. Reading Location: [id number]
--- NOTE | 2025-02-27 12:26 | CT_ITS ---
PROCEDURE: BRAIN/HEAD WITHOUT CONTRAST 02/27/2025 REASON FOR EXAM: FALL, CONFUSION TECHNIQUE: Procedure Code: CTBR Modality: CT Procedure: BRAIN/HEAD WITHOUT CONTRAST Coronal and Sagittal reconstruction series were provided. One or more dose reduction techniques were used (e.g., Automated exposure control, adjustment of the mA and/or kV according to patient size, use of iterative reconstruction technique. COMPARISON: None available. FINDINGS: There is no extra-axial or intra-axial intracranial hemorrhage. No mass effect or midline shift is seen. Generalized intracranial volume loss and findings compatible with chronic microvascular white matter ischemia. There is normal temple-white matter differentiation. The posterior fossa is grossly unremarkable. The skull is unremarkable. Visualized paranasal sinuses are clear. The mastoid air cells show normal translucency. CT/Brain/Head without Contrast IMPRESSION: 1. No intracranial hemorrhage. No mass effect or midline shift. 2. Chronic involutional and ischemic gliotic white matter changes. Reading Location: [facility]
--- NOTE | 2025-02-27 12:26 | EKG12_ITS ---
Test Reason : FALL Blood Pressure : */* mmHG Vent. Rate : 70 BPM Atrial Rate : * BPM P-R Int : * ms QRS Dur : 100 ms QT Int : 374 ms P-R-T Axes : * -13 191 degrees QTcB Int : 403 ms Atrial fibrillation Septal infarct , age undetermined Abnormal ECG Confirmed by LINDA MORSE, CHRISSY ([id number]), supervising editor news reel MAXIMO CALVO [id number]) on 03/01/2025 6:10:06 AM Referred By: Confirmed By: CHRISSY MCKEON MD
--- NOTE | 2025-02-27 12:27 | CT_ITS ---
PROCEDURE: ABDOMEN/PELVIS WITHOUT CONT 02/27/2025 REASON FOR EXAM: LEFT FLANK PAIN TECHNIQUE: Procedure Code: CTABDPEL Modality: CT Procedure: ABDOMEN/PELVIS WITHOUT CONT Noncontrast technique limits evaluation of the abdominal and pelvic viscera. Coronal and Sagittal reconstruction series were provided. One or more dose reduction techniques were used (e.g., Automated exposure control, adjustment of the mA and/or kV according to patient size, use of iterative reconstruction technique). RADIATION DOSE SUMMARY: CTDlvol: 44.99, 22.32 mGy DLP: 1984 mGycm COMPARISON: CT Abdomen and Pelvis w/o contrast, 11/22/2023 CT Abdomen and Pelvis w/Contrast, 08/19/2023 FINDINGS: LUNG BASES: No pleural effusion. Mild atelectasis bilaterally. Right middle lobe calcified granuloma. Moderate cardiomegaly. Calcified right hilar lymph nodes. Coronary artery and aortic valve calcification. LIVER: Unremarkable, except calcified granuloma. GALLBLADDER: Prior cholecystectomy. BILE DUCTS: No ductal dilation. PANCREAS: Unremarkable. SPLEEN: Multiple calcified splenic granulomas. ADRENAL GLANDS: Unchanged left adrenal gland thickening. New thickening of the right adrenal gland. KIDNEYS/URETERS Unremarkable on the left. No renal, ureteral or bladder calculi. No hydronephrosis or hydroureter. Right renal cysts again seen measuring up to 2.1 cm. STOMACH AND BOWEL: Small hiatal hernia. The cecal tip is now located in the ventral right mid abdomen, previously in the RLQ, indicating a mobile cecum. No obstruction or perforation. No wall thickening. Colonic diverticulosis. No CT evidence of colitis or acute diverticulitis. APPENDIX: The appendix is not definitively seen. RETRO/PERITONEUM: No free fluid. No free air. LYMPH NODES: No lymphadenopathy. PELVIC ORGANS: Unremarkable urinary bladder. Prior hysterectomy. VASCULATURE: No aortic aneurysm. Scattered calcified atherosclerosis. ABDOMINAL WALL AND SOFT TISSUES: Small fat-containing umbilical hernia. BONES: No fracture or suspicious osseous abnormality. Degenerative changes of the spine with associated grade 1 anterolisthesis of L4 on L5. CT/Abdomen/Pelvis without Cont IMPRESSION: 1. No urolithiasis or signs of urinary tract obstruction. 2. Colonic diverticulosis without signs of diverticulitis. 3. Nonspecific adrenal hyperplasia bilaterally, unchanged on the left and new on the right. Reading Location: [facility]
[2025-02-27] MEDS: 0.9% Normal Saline (1000mL) 1,000 ML 150 ML IV (12:38)
--- OUTSIDE RECORDS SUMMARY | 2025-02-27 12:52 | XMS RPT_ITS | CCD ---
Author Organization [facility] CliniSyfl Care Team Providers Care Gold Burnisher Name Role Phone Gabe MORSE, Vanessa Primary Care Provider GANTA, VANESSA Primary Care Unavailable OLDER, MEAGAN Referring Unavailable Gabe MORSE, Vanessa Primary Care Provider GANTA, VANESSA Primary Care Unavailable ROSSY CROCKER Attending Unavailab le Gabe MORSE, [facility] Primary Care Provider Ganta, Vanessa Primary Care Unavailable Fabio Orozco Attending Unavailable Ganta, Vanessa Primary Care Unavailable Silver Durbin Attending Unavailable Denbow PA-C, Kinga L Unavailable Older 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, Meagan Unavailable Bogner PA-C, Gbay Unavailable Denbow PA-C, Kinga L Unavailable Bogner PA-C, Gaby Unavailable Efe ORTIZ, Roly Arroyo Unavailable Unava ilable SELF Referring Unavailable GANTA, VANESSA Primary Care Unavailable GANTA, VANESSA Attending Unavailable GANTA, VANESSA Referring Unavailable GANTA, VANESSA Primary Care Unavailable ROSSY CROCKER Referring Unavailab le GANTA, VANESSA Primary Care Unavailable JUANA PRABHAKAR Attending Unavailable SELF Referring Unavailable GANTA, VANESSA Primary Care Unavailable SHELBIE CM Attending Unavailable GANTA, VANESSA Attending Unavailable GANTA, VANESSA Primary Care Unavailable GANTA, VANESSA Attending Unavailable GANTA, VANESSA Primary Care Unavailable GANTA, VANESSA Attending Unavailable GANTA, VANESSA Primary Care Unavailable GANTA, VANESSA Referring Unavailable GANTA, VANESSA Primary Care Unavailable ROSSY CROCKER Attending Unavailab le GANTA, VANESSA Primary Care Unavailable ROSSY CROCKER Referring VANESSA Jimenez Primary Care Unavailable Allergies Allergy Classification Reported Allergen(s) Allergy Type Date of Onset Reaction(s) Facility Dihydrofolate Reductase Inhibitors (antibiotic) (1 source) Trimethoprim Drug Allergy 022 Swelling [facility] Estrogens, Conjugated (CUSTODIAL) (1 source) Estrogens, Conjugated (CUSTODIAL) Drug Allergy [facility] medroxyPROGESTERone (1 source) medroxyPROGESTERone Drug Allergy [facility] Nitrofurantoin (1 source) Nitrofurantoin Drug Allergy [facility] Work Phone: [phone] NITROFURANTOIN, MACROCRYSTALS / Nitrofurantoin, Monohydrate (1 source) NITROFURANTOIN, MACROCRYSTALS / Nitrofurantoin, Monohydrate Drug Allergy Diarrhea [facility] Sulfamethoxazole / Trimethoprim (1 source) Sulfamethoxazole / Trimethoprim Drug Allergy [facility] Work Phone: Sulfonamides (antibiotic) (1 source) Sulfamethoxazole Drug Allergy 022 Swelling [facility] (20 sources) Estrogens, Conjugated (CUSTODIAL) Drug Allergy 005 Itching [facility] Work Phone: (20 sources) medroxyPROGESTERone; Translations: [MEDROXYPROGESTERONE] Drug Allergy 005 Unknown [facility] Work Phone: (20 sources) Nitrofurantoin; Translations: [NITROFURANTOIN] Drug Allergy 005 [facility] Work Phone: (20 sources) Sulfamethoxazole; Translations: [SULFAMETHOXAZOLE] Drug Allergy 022 Swelling [facility] (20 sources) Trimethoprim; Translations: [TRIMETHOPRIM] Drug Allergy [facility] (20 sources) NITROFURANTOIN, MACROCRYSTALS / Nitrofurantoin, Monohydrate; Translations: [NITROFURANTOIN MONOHYD/M-CRYST] Drug Allergy 005 Diarrhea [facility] Work Phone: (20 sources) Sulfamethoxazole / Trimethoprim; Translations: [SULFAMETHOXAZOLE-TRI METHOPRIM] Drug Allergy [facility] Work Phone: (3 sources) CONJUGATED ESTROGENS; Translations: [CONJUGATED ESTROGENS] Propensity to adverse reactions to drug (disorder) [facility] Other [place] [facility] (1 source) Estrogens, Conjugated (CUSTODIAL) Drug Allergy [facility] Rep[facility] (1 source) medroxyPROGESTERone Drug Allergy [facility] (1 source) Nitrofurantoin Drug Allergy [facility] (1 source) Sulfamethoxazole Drug Allergy [facility] Rep[facility] (1 source) Trimethoprim Drug Allergy [facility] Repository Medications Current Medications Medication Drug Class(es) Dates Sig (Normalized) Sig (Original) amLODIPine 2.5 mg oral tablet (19 sources) Dihydropyridine Calcium Channel Scott Start: 02-17-2024 End: 05-26-2024 take 1 tablet by mouth once daily in the morning amLODIPine (NORVASC) 2.5 mg tablet Indications: Essential hypertension Take 1 tablet by mouth once daily. 30 tablet 5 09/30/2024 9:59 AM EDT 05/27/2024 Active apixaban 5 mg oral tablet (17 sources) Factor Xa Inhibitor Start: 03-09-2024 End: 05-26-2024 take 1 tablet by mouth twice daily in the morning apixaban (ELIQUIS) 5 mg tab(s) Take 1 tablet by mouth two times a day. 60 tablet 5 09/30/2024 9:59 AM EDT 05/27/2024 Active cetirizine hydrochloride 10 mg oral tablet (1 source) Histamine-1 Receptor Antagonist Start: 03-20-2023 End: 03-27-2023 take 1 tablet by mouth once daily cetirizine (ZYRTEC) 10 mg tablet Take 1 tablet by mouth once daily for 7 days. 7 tablet 0 03/20/2023 03/27/2023 Active Comment on above: Take 1 tablet by evon th once daily for 7 days. citalopram 10 mg oral tablet (15 sources) Serotonin Reuptake Inhibitor Start: 05-19-2024 End: 05-26-2024 take 1 tablet by mouth once daily in the morning citalopram hydrobromide (CELEXA) 10 mg tablet Indications: Dementia with behavioral disturbance (HCC) Take 1 tablet by mouth once daily. 30 tablet 5 09/30/2024 9:59 AM EDT 05/27/2024 Active famotidine 40 mg oral tablet (20 sources) Histamine-2 Receptor Antagonist Start: 07-09-2022 End: 05-26-2024 take 1 tablet by mouth once famotidine (PEPCID) 40 mg tablet Take 1 tablet by mouth every afternoon. 30 tablet 5 09/30/2024 9:59 AM EDT 05/27/2024 Active Start: 06-28-2020 End: 06-29-2021 take 1 tablet by mouth once daily famotidine (PEPCID) 40 mg tablet Indications: Gastroesophageal reflux disease without esophagitis Take 1 tablet by mouth once daily. 90 tablet 3 06/29/2021 Active Comment on above: Take 1 tablet by evon th once daily. take 1 tablet every day ferrous gluconate 27 mg oral tablet (20 sources) Start: 06-16-2024 take 1 tablet by mouth once Ferrous Gluconate 225 mg (27 mg iron) tab Indications: Alzheimer's disease (HCC) Take 1 tablet by mouth every afternoon. 30 Each 5 09/30/2024 9:59 AM EDT 06/16/2024 Active Start: 11-13-2023 End: 06-12-2024 take 1 tablet by mouth once daily at breakfast Ferrous Gluconate 225 mg (27 mg iron) tab Indications: Alzheimer's disease (HCC) Take 1 tablet by mouth daily with breakfast. 30 Each 5 05/27/2024 06/12/2024 Discontinued hydrocortisone acetate 25 mg rectal suppository (1 source) Corticosteroid Start: 12-10-2016 take 25 mg rectal route twice daily as needed Hydrocortisone Acetate (Anusol Hc) 25 MG Suppos. Active 25 MG RECTAL TWICE DAILY NEEDED December 10, 2016 5:52pm ibuprofen 200 mg oral capsule (1 source) Nonsteroidal Anti-inflammatory Drug Start: 12-10-2016 take 200 mg by mouth every six hours as needed Ibuprofen Active 200 MG PO EVERY 6 HOURS NEEDED December 10, 2016 5:52pm iv contrast (will be provided with radiology test) (1 source) Start: 10-05-2021 End: 10-06-2021 inject 1 dose intravenously once iv contrast (will be provided with radiology test) MRI Brain Inject, intravenously, once for 1 dose.No IV access, insert saline lock prior to beginning of sedation, infusion, injection of imaging exam.Discontinue saline lock post exam. If Pt. has a central line or IVAD, may access for administration according to line specific nursing protocol.Once exam is complete flush line and de-access according to line specific nursing protocol in the MR contrast administration guidelines link 1 Each 0 10/05/2021 10/06/2021 Active Comment on above: MRI Brain Inject, in travenously, once for 1 dose.No IV access, insert saline lock prior to beginning of sedation, infusion, injection of imaging exam.Discontinue saline lock post exam. If Pt. has a central line or IVAD, may access for administration according to line specific nursing protocol.Once exam is complete flush line and de-access according to line specific nursing protocol in the MR contrast administration guidelines link levothyroxine (TIROSINT-SANJAY) 37.5 mcg/mL solution (10 sources) Start: 08-21-2024 End: 02-17-2025 levothyroxine (TIROSINT-SANJAY) 37.5 mcg/mL solution Take 3 mL (contents of 3 ampules) by mouth daily before breakfast. 270 mL 1 09/23/2024 1:50 PM EDT 08/21/2024 02/17/2025 Active Start: 08-21-2024 End: 02-17-2025 levothyroxine (TIROSINT-SANJAY) 37.5 mcg/mL solution Take 3 mL (contents of 3 ampules) by mouth daily before breakfast. 270 mL 1 08/26/2024 1:39 PM EDT 08/21/2024 02/17/2025 Active Start: 08-21-2024 End: 02-17-2025 take 3 mL by mouth once daily before breakfast levothyroxine (TIROSINT-SANJAY) 37.5 mcg/mL solution Take 3 mL by mouth daily before breakfast. 270 mL 1 08/21/2024 02/17/2025 Active memantine hydrochloride 5 mg oral tablet (20 sources) N-lwncca-P-aspartate Receptor Antagonist Start: 04-22-2023 End: 05-26-2024 take 1 tablet by mouth twice daily in the morning, then take 5 tablets by mouth once daily, then take 5 tablets by mouth twice daily memantine (NAMENDA) 5 mg tablet Indications: Dementia with behavioral disturbance (HCC) Take 1 tablet by mouth two times a day. Please start by taking 5 mgs once a day and increase to taking 5 mgs 2 times a day 60 tablet 5 09/30/2024 9:59 AM EDT 05/27/2024 Active Start: 03-06-2021 End: 03-27-2022 take 1 tablet by mouth twice daily, then take 5 tablets by mouth once daily, then take 5 tablets by mouth twice daily memantine (NAMENDA) 5 mg tablet Take 1 tablet by mouth twice daily. Please start by taking 5 mgs once a day and increase to taking 5 mgs 2 times a day 180 tablet 3 03/28/2022 Active Comment on above: Take 1 tablet by evon th twice daily. Please start by taking 5 mgs once a day and increase to taking 5 mgs 2 times a day Take 1 tablet by evon th two times a day. Please start by taking 5 mgs once a day and increase to taking 5 mgs 2 times a day 24 hr metoprolol succinate 50 mg extended release oral tablet (20 sources) beta-Adrenergic Scott Start: 03-09-2024 End: 05-26-2024 take 1 tablet by mouth every hour metoprolol succinate ER (TOPROL XL) 50 mg 24 hr tablet Take 1 tablet by mouth every afternoon. 30 tablet 5 09/30/2024 9:59 AM EDT 05/27/2024 Active Start: 06-21-2023 End: 03-09-2024 metoprolol succinate ER (TOP ROL XL) 50 mg 24 hr tablet Indications: Essential hypertension take 1 tablet every day 90 tablet 3 06/21/2023 03/09/2024 Discontinued Start: 07-09-2022 take 1 tablet by evon th once daily metoprolol succinate ER (TOPROL XL) 50 mg 24 hr tablet Indications: Essential hypertension Take 1 tablet by mouth once daily. 90 tablet 3 07/09/2022 Active Start: 12-10-2016 End: 11-06-2021 take 1 tablet by mouth once daily metoprolol succinate ER (TOPROL XL) 50 mg 24 hr tablet Indications: Essential hypertension Take 1 tablet by mouth once daily. 90 tablet 0 11/06/2021 Active Comment on above: Take 1 tablet by evon once daily. take 1 tablet every day nirmatrelvir tablet 150 mg and ritonavir tablet 100 mg in a dose pack (PAXLOVID) (2 sources) Start: 2023 End: 03-30-2023 nirmatrelvir tablet 150 mg and ritonavir tablet 100 mg in a dose pack (PAXLOVID) Indications: COVID Administer ONE pink nirmatrelvir 150 mg tablet and ONE white ritonavir 100 mg tablet for a total of two tablets twice daily. 20 tablet 0 2023 03/30/2023 Active Start: 2023 End: 2023 nirmatrelvir tablet 150 mg a nd ritonavir tablet 100 mg in a dose pack (PAXLOVID) Indications: COVID Administer ONE pink nirmatrelvir 150 mg tablet and ONE white ritonavir 100 mg tablet for a total of two tablets twice daily. 20 tablet 0 2023 2023 Discontinued Comment on above: Administer ONE pink nirmatrelvir 150 mg tablet and ONE white ritonavir 100 mg tablet for a total of two tablets twice daily. pravastatin sodium 20 mg oral tablet (20 sources) HMG-CoA Reductase Inhibitor Start: 3 End: take 1 tablet by mouth once pravastatin (PRAVACHOL) 20 mg tablet Take 1 tablet by mouth every afternoon. 30 tablet 5 09/30/2024 9:59 AM EDT 05/27/2024 Active Start: 12-12-2020 End: 01-06-2023 take 1 tablet by mouth once daily pravastatin (PRAVACHOL) 20 mg tablet Indications: Mixed hyperlipidemia Take 1 tablet by mouth once daily. 90 tablet 0 10/08/2022 01/06/2023 Active Comment on above: Take 1 tablet by evon once daily. take 1 tablet every day predniSONE 10 mg oral tablet (1 source) Start: 03-20-20 23 End: 03-29-19 24 predniSONE (DELTASONE) 10 mg tablet Take 4 tabs daily for 3 days, then 2 tabs daily for 3 days, then 1 tab daily for 3 days with food. 21 tablet 0 03/20/2023 03/29/2023 Active Comment on above: Take 4 tabs daily fo r 3 days, then 2 tabs daily for 3 days, then 1 tab daily for 3 days with food. vitamin b12 1 mg/ml injectable solution (1 source) Vitamin B12 Start: 12-11-19 17 inject 1000 ug by intramuscular injection every 30 days Cyanocobalamin (Vitamin B-12) Active 1000 MCG IM Q30D December 10, 2016 5:52pm Completed/Discontinued Medications Medication Drug Class(es) Dates Sig (Normalized) Sig (Original) donepezil hydrochloride 10 mg disintegrating oral tablet (20 sources) Start: 10-17-2022 End: 03-07-2023 take 1 tablet by mouth once daily donepezil (ARICEPT) 10 mg disintegrating tablet Take 1 tablet by mouth once daily. 90 tablet 3 10/17/2022 03/07/2023 Discontinued Start: 04-16-2022 take 1 tablet by evon th once daily donepezil (ARICEPT) 10 mg disintegrating tablet Indications: Dementia without behavioral disturbance, unspecified dementia type , Cognitive communication deficit Take 1 tablet by mouth once daily. 90 tablet 1 04/16/2022 Active Start: 10-03-2021 take 1 tablet by evon th once daily at bedtime donepezil (ARICEPT) 5 mg disintegrating tablet Take 5 mg by mouth daily at bedtime. 0 10/03/2021 Active Start: 09-26-2021 take 1 tablet by evon th once daily donepezil (ARICEPT) 10 mg disintegrating tablet Indications: Dementia without behavioral disturbance, unspecified dementia type , Cognitive communication deficit Take 1 tablet by mouth once daily. 90 tablet 1 09/26/2021 Active Start: 06-06-2021 End: 09-24-2021 take 1 tablet by mouth once daily donepezil (ARICEPT) 10 mg disintegrating tablet Indications: Dementia without behavioral disturbance, unspecified dementia type (HCC) , Cognitive communication deficit Take 1 tablet by mouth once daily. 30 tablet 3 06/06/2021 09/24/2021 Discontinued Start: 12-10-2016 take 5 mg by mouth at bedtime Donepezil Active 5 MG PO AT BEDTIME December 10, 2016 5:52pm Comment on above: Take 1 tablet by evon th once daily. Take 5 mg by mouth d aily at bedtime. ipratropium bromide 0.021 mg/actuat metered dose nasal spray (20 sources) Anticholinergic Start: 04-08-2024 End: 06-10-2024 Ipratropium [place] (ATROVENT) 21 mcg (0.03 %) nasal spray Use 2 Sprays in the nose every 12 hours. 30 mL 2 04/08/2024 06/10/2024 Discontinued (Discontinued by Patient) Start: 04-06-2021 End: 04-05-2024 Ipratropium [place] (ATROVEN T) 21 mcg (0.03 %) nasal spray Use 2 Sprays in the nose every 12 hours. 30 mL 2 10/09/2022 04/05/2024 Discontinued Comment on above: Use 2 Sprays in the nose every 12 hours. levothyroxine sodium 0.112 mg oral tablet (20 sources) l-Thyroxine Start: End: take 1 tablet by mouth once daily in the evening levothyroxine (LEVOXYL) 112 mcg tablet Indications: Acquired hypothyroidism Take 1 tablet by mouth once daily. 30 tablet 5 08/03/2024 5:11 PM EDT 05/27/2024 08/21/2024 Discontinued Start: 12-10-2016 levothyroxine (LEVOXYL) 112 mcg tablet Indications: Acquired hypothyroidism Take 1 tablet by mouth once daily. Except take 1.5 tabs on Sundays. Take on empty stomach. For thyroid. 96 tablet 3 04/06/2021 Active Comment on above: Take 1 tablet by evon th once daily. Except take 1.5 tabs on Sundays. Take on empty stomach. For thyroid. Take 1 tablet by evon th once daily. Multivitamins-Mine rals-Lutein (CENTRUM SILVER) Tab (20 sources) Start: 08-26-2012 End: 06-10-2024 take 1 tablet by mouth once daily Multivitamins-Minerals -Lutein (CENTRUM SILVER) Tab Take 1 tablet by mouth once daily. 1 tablet 0 08/26/2012 06/10/2024 Discontinued (Discontinued by Patient) Start: 08-26-2012 take 1 tablet by evon th once daily Hnanrrgpvzwlu-Xuvmxvky-Romjwh (CENTRUM SILVER) Tab Take 1 tablet by mouth once daily. 1 tablet 0 08/26/2012 Active Comment on above: Take 1 tablet by evon th once daily. sertraline 50 mg oral tablet (20 sources) Serotonin Reuptake Inhibitor Start: 10-17-2022 End: 05-19-2024 take 1 tablet by mouth once daily sertraline (ZOLOFT) 50 mg tablet Take 1 tablet by mouth once daily. 90 tablet 3 10/01/2023 05/19/2024 Discontinued Start: 07-24-2022 End: 08-23-2022 take 1 tablet by mouth once daily sertraline (ZOLOFT) 50 mg tablet Indications: Tearfulness Take 1 tablet by mouth once daily. 30 tablet 2 07/24/2022 Active Start: 07-09-2022 End: 08-08-2022 take 1 tablet by mouth once daily sertraline (ZOLOFT) 25 mg tablet Take 1 tablet by mouth once daily. 30 tablet 1 07/09/2022 07/24/2022 Discontinued Start: 07-11-2021 End: 08-10-2021 take 1 tablet by mouth once daily sertraline (ZOLOFT) 25 mg tablet Take 1 tablet by mouth once daily. 30 tablet 0 07/11/2021 Active Comment on above: Take 1 tablet by evon th once daily. Problems Active Problems Problem Classification Problem Date Documented Date Episodic/Chronic Abdominal pain (1 source) Unspecified abdominal pain; Translations: [Unspecified abdominal pain] Onset: 12-15-2023 Episodic Administrative/socia l admission (1 source) Caregiver role strain; Translations: [Dependent relative needing care at home] 05-19-2024 Episodic Cardiac dysrhythmias (20 sources) Ventricular premature beats; Translations: [Ventricular premature depolarization] Onset: 09-12-2018 09-12-2018 Chronic Chronic kidney disease (20 sources) Chronic kidney disease stage 3; Translations: [CKD (chronic kidney disease) stage 3, GFR 30-59 ml/min] Onset: 08-12-2019 08-12-2019 Chronic Chronic kidney disease (2 sources) Chronic kidney disease; Translations: [Stage 3a chronic kidney disease (HCC)] Onset: 08-12-2019 Deficiency and other anemia (3 sources) Anemia; Translations: [Anemia, unspecified] 11-13-2023 Episodic Delirium, dementia, and amnestic and other cognitive disorders (20 sources) Dementia; Translations: [Unspecified dementia without behavioral disturbance] Onset: 02-10-2019 02-10-2019 Chronic Disorders of lipid metabolism (20 sources) Mixed hyperlipidemia; Translations: [Mixed hyperlipidemia] Onset: 02-10-2019 02-10-2019 Chronic Esophageal disorders (20 sources) Gastroesophageal reflux disease without esophagitis; Translations: [Gastro-esophageal reflux disease without esophagitis] 03-22-2016 Chronic Essential hypertension (20 sources) Essential hypertension; Translations: [Essential (primary) hypertension] Onset: 02-16-2015 02-16-2015 Chronic Headache; including migraine (1 source) Headache; Translations: [New onset of headaches] Episodic Joint disorders and dislocations; trauma-related (20 sources) Chronic instability of left knee joint; Translations: [Chronic instability of knee, left knee] Onset: 05-03-2023 05-03-2023 Chronic Malaise and fatigue (1 source) Attacks of weakness; Translations: [Weakness] Episodic Mycoses (1 source) Onychomycosis; Translations: [Tinea unguium] 05-07-2023 Episodic Nausea and vomiting (4 sources) Nausea and vomiting; Translations: [Nausea with vomiting, unspecified] Episodic Osteoarthritis (20 sources) Osteoarthritis; Translations: [Unspecified osteoarthritis, unspecified site] Onset: 07-10-2013 07-10-2013 Chronic Other aftercare (1 source) Under care of palliative care physician; Translations: [Encounter for palliative care] 10-22-2024 Episodic Other connective tissue disease (1 source) Mass of soft tissue of left upper limb; Translations: [Other specified soft tissue disorders] 10-18-2022 Episodic Other connective tissue disease (1 source) Other specified soft tissue disorders; Translations: [Mass of soft tissue of left upper extremity] Onset: 10-18-2022 Episodic Other connective tissue disease (3 sources) Mass of soft tissue; Translations: [Other specified soft tissue disorders] 11-05-2022 Episodic Other connective tissue disease (2 sources) Pain of toe of right foot; Translations: [Pain in right toe(s)] 05-07-2023 Episodic Other connective tissue disease (1 source) Pain of toe of left foot; Translations: [Pain in left toe(s)] 05-07-2023 Episodic Other ear and sense organ disorders (20 sources) Hearing loss; Translations: [Unspecified hearing loss, unspecified ear] Onset: 03-22-2016 03-22-2016 Chronic Other nervous system disorders (1 source) Cognitive deficit in communication skills; Translations: [Cognitive communication deficit] Chronic Other nervous system disorders (2 sources) Abnormal sensation; Translations: [Other disturbances of skin sensation] Episodic Other nutritional; endocrine; and metabolic disorders (1 source) Weight loss; Translations: [Abnormal weight loss] 10-24-2023 Episodic Other skin disorders (1 source) Epidermoid cyst; Translations: [Epidermal cyst] Episodic Other skin disorders (1 source) Cyst of skin; Translations: [Follicular cyst of the skin and subcutaneous tissue, unspecified] Episodic Other skin disorders (1 source) Callosity; Translations: [Corns and callosities] 05-07-2023 Episodic Residual codes; unclassified (1 source) Memory impairment; Translations: [Other amnesia] Episodic Residual codes; unclassified (2 sources) Tenderness ; Translations: [Pain, unspecified] 11-05-2022 Episodic Residual codes; unclassified (1 source) Patient noncompliance - general; Translations: [Medical non-compliance] 08-21-2024 Episodic Screening and history of mental health and substance abuse codes (2 sources) Encounter for screening for depression; Translations: [Encounter for screening examination for other mental health and behavioral disorders] Onset: 10-16-2024 Episodic Thyroid disorders (20 sources) Acquired hypothyroidism; Translations: [Hypothyroidism, unspecified] Onset: 09-26-2005 Chronic Transient cerebral ischemia (2 sources) Multiple AND bilateral precerebral artery stenosis; Translations: [Multiple and bilateral precerebral artery syndromes] Chronic Unclassified (1 source) Other persistent atrial fibrillation; Translations: [Persistent atrial fibrillation (HCC)] Onset: 03-09-2024 Unclassified (1 source) Severe late onset Alzheimer's dementia, unspecified whether behavioral, psychotic, or mood disturbance or anxiety (HCC); Translations: [Severe late onset Alzheimer's dementia, unspecified whether behavioral, psychotic, or mood disturbance or anxiety (HCC)] Onset: 10-16-2024 Unclassified (1 source) Severe late onset Alzheimer's dementia without behavioral disturbance, psychotic disturbance, mood disturbance, or anxiety (HCC); Translations: [Severe late onset Alzheimer's dementia without behavioral disturbance, psychotic disturbance, mood disturbance, or anxiety (HCC)] Onset: 08-21-2024 Viral infection (1 source) Disease caused by 2019-nCoV; Translations: [COVID-19] 2023 Episodic Past or Other Problems Problem Classification Problem Date Documented Da te Episodic/Chronic Acquired foot deformities (20 sources) Deformity of toe; Translations: [Acquired deformities of toe(s), unspecified, right foot] Onset: 09-12-2010 Resolved: 01-23-2016 05-07-2023 Episodic Deficiency and other anemia (1 source) Anemia, unspecified; Translations: [Anemia, unspecified type] Onset: 05-19-2024 Episodic Gastrointestinal hemorrhage (20 sources) Hematochezia; Translations: [Melena] Onset: 08-12-2006 08-12-2006 Episodic Genitourinary symptoms and ill-defined conditions (20 sources) Benign essential microscopic hematuria; Translations: [Benign essential microscopic hematuria] Onset: 02-22-2011 02-22-2011 Episodic Nutritional deficiencies (20 sources) Cobalamin deficiency; Translations: [Deficiency of other specified B group vitamins] Onset: 03-22-2016 03-22-2016 Episodic Other and unspecified benign neoplasm (20 sources) Benign neoplasm of soft tissue; Translations: [Benign neoplasm of connective and other soft tissue, unspecified] Onset: 09-12-2010 09-12-2010 Episodic Other and unspecified benign neoplasm (19 sources) Benign connective tissue neoplasm; Translations: [Benign neoplasm of connective and other soft tissue, unspecified] Onset: 09-12-2010 09-12-2010 Episodic Other connective tissue disease (20 sources) Ganglion of joint; Translations: [Ganglion, unspecified site] Onset: 09-12-2010 Resolved: 01-23-2016 01-23-2016 Episodic Other nervous system disorders (20 sources) Impairment of balance; Translations: [Other abnormalities of gait and mobility] Onset: 03-22-2016 03-22-2016 Episodic Other non-traumatic joint disorders (20 sources) Pain in left knee; Translations: [Pain in joint, lower leg] Onset: 05-03-2023 05-03-2023 Episodic Other non-traumatic joint disorders (20 sources) Pain in lower limb; Translations: [Pain in unspecified knee] Onset: 10-31-2006 Resolved: 01-23-2016 01-23-2016 Episodic Other screening for suspected conditions (not mental disorders or infectious disease) (20 sources) Patient encounter status; Translations: [Encounter for screening for malignant neoplasm of colon] Onset: 12-24-2016 12-24-2016 Episodic Residual codes; unclassified (20 sources) Amnesia; Translations: [Other amnesia] Onset: 01-23-2016 Resolved: 08-12-2018 08-12-2018 Episodic Unclassified (1 source) Patient encounter status 10-16-2024 Results Test Name Value Interpretation Reference Range Facility [facility] 10-27-2024 CNPN Telephone (MPPV) GERTRUDE FLORES ([id number]) 1940 F Date Time Provider Department 10/27/24 YRIS DICKSON [facility] During your visit today, we recorded the following information about you: Yris Dickson LISW 10/27/2024 9:56 AM Signed PALLIATIVE MEDICINE SOCIAL WORK PROGRESS NOTE Date of Service: October 27, 2024 Gertrude Flores is being seen for an initial/follow up Palliative Care Social Work visit. TOPICS ADDRESSED: community resources CLINICAL ASSESSMENT: CBPM SW continues to try and connect Pt with in-home PCP. SHANON has left x3 with [facility] to inquire if [place] is in their territory/if they are accepting new Pts. SHANON spoke with Pt's spouse, Avila, on this date and provided update. Once SHANON hears from [facility], SHANON will communicate next steps to Pt/spouse. SW to follow. INTERVENTIONS/REFERRA LS TO BE PROVIDED:Communicate pertinent medical/psychosocial information to Palliative Medicine team PLAN: Will continue to monitor patient/family coping and remain available for psychosocial intervention as patient/family system integrate illness trajectory and its impact on their lives JOSE Palacios Allergies As of Date: 10/27/2024 Noted Allergy Reaction BACTRIM DS (SULFAMETHOXAZOLE-TRI M*03/20/2005 Comments: blisters in mouth, edema FURADANTIN (NITROFURANTOIN) 03/20/2005 4 - Hives MACROBID (NITROFURANTOIN MONOHYD/*03/20/2005 6 - Diarrhea PREMARIN (CONJUGATED ESTROGENS) 03/20/2005 PROVERA (MEDROXYPROGESTERONE) 03/20/2005 SULFAMETHOXAZOLE 06/11/2021 7 - Swelling TRIMETHOPRIM 06/11/2021 7 - Swelling Date Reviewed: 10/16/2024 Reviewed by: Dariela Morrell MA - Fully Assessed Prescriptions as of 10/27/2024 - levothyroxine (TIROSINT-SANJAY) 37.5 mcg/mL solution Take 3 mL (contents of 3 ampules) by mouth daily before breakfast. - Ferrous Gluconate 225 mg (27 mg iron) tab Take 1 tablet by mouth every afternoon. - amLODIPine (NORVASC) 2.5 mg tablet Take 1 tablet by mouth once daily. - apixaban (ELIQUIS) 5 mg tab(s) Take 1 tablet by mouth two times a day. - citalopram hydrobromide (CELEXA) 10 mg tablet Take 1 tablet by mouth once daily. - famotidine (PEPCID) 40 mg tablet Take 1 tablet by mouth every afternoon. - memantine (NAMENDA) 5 mg tablet Take 1 tablet by mouth two times a day. Please start by taking 5 mgs once a day and increase to taking 5 mgs 2 times a day - metoprolol succinate ER (TOPROL XL) 50 mg 24 hr tablet Take 1 tablet by mouth every afternoon. - pravastatin (PRAVACHOL) 20 mg tablet Take 1 tablet by mouth every afternoon. Problem List As Of Date 10/27/2024 Noted Resolved Gastroesophageal reflux disease without esophag* Acquired hypothyroidism [E03.9] 09/26/2005 Essential hypertension [I10] MELENA, BLOOD IN STOOL [K92.1] 08/12/2006 Pain in joint, lower leg [M25.569] 10/31/2006 01/23/2016 Other acquired deformity of toe [M20.5X9] 09/12/2010 01/23/2016 Ganglion of joint [M67.40] 09/12/2010 01/23/2016 Benign francis soft tissue [D21.9] 09/12/2010 Benign essential microscopic hematuria [R31.1] 02/22/2011 Osteoarthritis [M19.90] 07/10/2013 Medicare annual wellness visit, subsequent [Z00*01/23/2016 Memory loss [R41.3] 01/23/2016 08/12/2018 Balance problem [R26.89] 03/22/2016 B12 deficiency [E53.8] 03/22/2016 MESCALERO APACHE (hard of hearing) [H91.90] 03/22/2016 Screening for colon cancer [Z12.11] 12/24/2016 PVC's (premature ventricular contractions) [I49*09/12/2018 Mixed hyperlipidemia [E78.2] 02/10/2019 CKD (chronic kidney disease) stage 3, GFR 30-59*08/12/2019 Chronic pain of left knee [M25.562, G89.29] 05/03/2023 Chronic knee instability, 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] 05/03/2023 Persistent atrial fibrillation (HCC) [I48.19] 03/09/2024 Encounter Status:Closed by YRIS DICKSON on 10/27/24 [facility] GER[facility]UDE FLORES ([id number]) 1940 F Date Time Provider Department 10/23/24 [facility] During your visit today, we recorded the following information about you: Yris Dickson LISW 10/23/2024 10:59 AM Signed PALLIATIVE MEDICINE SOCIAL WORK PROGRESS NOTE Date of Service: October 23, 2024 Gertrude Flores is being seen for an initial/follow up Palliative Care Social Work visit. Today's visit includes: spouse TOPICS ADDRESSED: community resources CLINICAL ASSESSMENT: CBPM SHANON received referral from PM physician that Pt is in need of in-home PCP. She is currently outside of service network for [facility]. SHANON reached out to [place] CLAUDIO, Pranav Gorman, and Anila Prabhakar, Senior Oil Pit Attendant for [employer] to inquire about alternative resources. With their assistance this [facility] to inquire about services. SW left VM for Pt's spouse on this date with update and SW's direct contact information. SW encouraged spouse/Pt to reach out, as needed. SW will continue to explore resources and notify Pt/spouse with update. INTERVENTIONS/REFERRA LS TO BE PROVIDED:Communicate pertinent medical/psychosocial information to Palliative Medicine team PLAN: Will continue to monitor patient/family coping and remain available for psychosocial intervention as patient/family system integrate illness trajectory and its impact on their lives JOSE Palacios Allergies As of Date: 10/23/2024 Noted Allergy Reaction BACTRIM DS (SULFAMETHOXAZOLE-TRI M*03/20/2005 Comments: blisters in mouth, edema FURADANTIN (NITROFURANTOIN) 03/20/2005 4 - Hives MACROBID (NITROFURANTOIN MONOHYD/*03/20/2005 6 - Diarrhea PREMARIN (CONJUGATED ESTROGENS) 03/20/2005 PROVERA (MEDROXYPROGESTERONE) 03/20/2005 SULFAMETHOXAZOLE 06/11/2021 7 - Swelling TRIMETHOPRIM 06/11/2021 7 - Swelling Date Reviewed: 10/16/2024 Reviewed by: Dariela Morrell MA - Fully Assessed Prescriptions as of 10/23/2024 - levothyroxine (TIROSINT-SANJAY) 37.5 mcg/mL solution Take 3 mL (contents of 3 ampules) by mouth daily before breakfast. - Ferrous Gluconate 225 mg (27 mg iron) tab Take 1 tablet by mouth every afternoon. - amLODIPine (NORVASC) 2.5 mg tablet Take 1 tablet by mouth once daily. - apixaban (ELIQUIS) 5 mg tab(s) Take 1 tablet by mouth two times a day. - citalopram hydrobromide (CELEXA) 10 mg tablet Take 1 tablet by mouth once daily. - famotidine (PEPCID) 40 mg tablet Take 1 tablet by mouth every afternoon. - memantine (NAMENDA) 5 mg tablet Take 1 tablet by mouth two times a day. Please start by taking 5 mgs once a day and increase to taking 5 mgs 2 times a day - metoprolol succinate ER (TOPROL XL) 50 mg 24 hr tablet Take 1 tablet by mouth every afternoon. - pravastatin (PRAVACHOL) 20 mg tablet Take 1 tablet by mouth every afternoon. Problem List As Of Date 10/23/2024 Noted Resolved Gastroesophageal reflux disease without esophag* Acquired hypothyroidism [E03.9] 09/26/2005 Essential hypertension [I10] MELENA, BLOOD IN STOOL [K92.1] 08/12/2006 Pain in joint, lower leg [M25.569] 10/31/2006 01/23/2016 Other acquired deformity of toe [M20.5X9] 09/12/2010 01/23/2016 Ganglion of joint [M67.40] 09/12/2010 01/23/2016 Benign francis soft tissue [D21.9] 09/12/2010 Benign essential microscopic hematuria [R31.1] 02/22/2011 Osteoarthritis [M19.90] 07/10/2013 Medicare annual wellness visit, subsequent [Z00*01/23/2016 Memory loss [R41.3] 01/23/2016 08/12/2018 Balance problem [R26.89] 03/22/2016 B12 deficiency [E53.8] 03/22/2016 MESCALERO APACHE (hard of hearing) [H91.90] 03/22/2016 Screening for colon cancer [Z12.11] 12/24/2016 PVC's (premature ventricular contractions) [I49*09/12/2018 Mixed hyperlipidemia [E78.2] 02/10/2019 CKD (chronic kidney disease) stage 3, GFR 30-59*08/12/2019 Chronic pain of left knee [M25.562, G89.29] 05/03/2023 Chronic knee instability, 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] 05/03/2023 Persistent atrial fibrillation (HCC) [I48.19] 03/09/2024 Encounter Status:Closed by YRIS DICKSON on 10/23/24 [facility] 10-22-2024 [facility] Telephone ([facility]) GERTRUDE FLORES ([id number]) 1940 F Date Time Provider Department 10/22/24 SHELBIE CM [facility] During your visit today, we recorded the following information about you: Bear Hess PSS 10/22/2024 3:37 PM Signed MEDICAL CARE AT HOME [facility] REFERRAL Date Referral Received: 10/22/2024 Referral Source: CC Physician office Date of : 1940 Age: [age] year old PCP: Vanessa Her MD Visit address from [facility]: [facility] [facility] [address] Reason for referral: Ongoing Primary Care Name of Physician who gave the order: Dr. Shelbie Cm Primary Insurance Company: Payor: MEDICARE / Plan: MEDICARE A AND B / Product Type: Medicare / Primary Insurance ID Number: [id number] Bear Hess PSS 10/22/2024 3:37 PM Signed Medical Care at home referral was received for Primary Care services. Unfortunately the referral is declined at this time due to geographic location. Thank you for the referral. Patient discharged from Medical Care at Home: Discharge Reason: Other with Patient resides outside of the [facility] service area Discharge Date: 10/22/2024 Please cancel any pending orders-[facility], upcoming appointments with [facility] ROSALES Cerna Allergies As of Date: 10/22/2024 Noted Allergy Reaction BACTRIM DS (SULFAMETHOXAZOLE-TRI M*03/20/2005 Comments: blisters in mouth, edema FURADANTIN (NITROFURANTOIN) 03/20/2005 4 - Hives MACROBID (NITROFURANTOIN MONOHYD/*03/20/2005 6 - Diarrhea PREMARIN (CONJUGATED ESTROGENS) 03/20/2005 PROVERA (MEDROXYPROGESTERONE) 03/20/2005 SULFAMETHOXAZOLE 06/11/2021 7 - Swelling TRIMETHOPRIM 06/11/2021 7 - Swelling Date Reviewed: 10/16/2024 Reviewed by: Dariela Morrell MA - Fully Assessed Reason for Visit: Initial Consult [665] Cmt: [facility] [id number] Prescriptions as of 10/22/2024 - levothyroxine (TIROSINT-SANJAY) 37.5 mcg/mL solution Take 3 mL (contents of 3 ampules) by mouth daily before breakfast. - Ferrous Gluconate 225 mg (27 mg iron) tab Take 1 tablet by mouth every afternoon. - amLODIPine (NORVASC) 2.5 mg tablet Take 1 tablet by mouth once daily. - apixaban (ELIQUIS) 5 mg tab(s) Take 1 tablet by mouth two times a day. - citalopram hydrobromide (CELEXA) 10 mg tablet Take 1 tablet by mouth once daily. - famotidine (PEPCID) 40 mg tablet Take 1 tablet by mouth every afternoon. - memantine (NAMENDA) 5 mg tablet Take 1 tablet by mouth two times a day. Please start by taking 5 mgs once a day and increase to taking 5 mgs 2 times a day - metoprolol succinate ER (TOPROL XL) 50 mg 24 hr tablet Take 1 tablet by mouth every afternoon. - pravastatin (PRAVACHOL) 20 mg tablet Take 1 tablet by mouth every afternoon. Problem List As Of Date 10/22/2024 Noted Resolved Gastroesophageal reflux disease without esophag* Acquired hypothyroidism [E03.9] 09/26/2005 Essential hypertension [I10] MELENA, BLOOD IN STOOL [K92.1] 08/12/2006 Pain in joint, lower leg [M25.569] 10/31/2006 01/23/2016 Other acquired deformity of toe [M20.5X9] 09/12/2010 01/23/2016 Ganglion of joint [M67.40] 09/12/2010 01/23/2016 Benign francis soft tissue [D21.9] 09/12/2010 Benign essential microscopic hematuria [R31.1] 02/22/2011 Osteoarthritis [M19.90] 07/10/2013 Medicare annual wellness visit, subsequent [Z00*01/23/2016 Memory loss [R41.3] 01/23/2016 08/12/2018 Balance problem [R26.89] 03/22/2016 B12 deficiency [E53.8] 03/22/2016 MESCALERO APACHE (hard of hearing) [H91.90] 03/22/2016 Screening for colon cancer [Z12.11] 12/24/2016 PVC's (premature ventricular contractions) [I49*09/12/2018 Mixed hyperlipidemia [E78.2] 02/10/2019 CKD (chronic kidney disease) stage 3, GFR 30-59*08/12/2019 Chronic pain of left knee [M25.562, G89.29] 05/03/2023 Chronic knee instability, 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 CHUY WORKLEADERBEAR on 10/22/24 [facility] 10-21[facility]2024 [facility] GERTRUDE FLORES ([id number]) 1940 F Date Time Provider Department 10/21/24 [facility] During your visit today, we recorded the following information about you: Efrain Patient Softball Core MolderJustin 10/21/2024 1:14 PM Signed Referring provider, if any (patient's can self-refer): pcp Primary diagnosis or reason being seen: Severe late onset Alzheimer's dementia, unspecified whether behavioral, psychotic, or mood disturbance or anxiety (HCC) Has patient been seen by inpatient provider? No Any recent notes pertaining to palliative care referral, please add here: n/a Spoke to patient spouse avila who indicates the reasons for consult are intro to services Family member present spouse avila Confirmed virtual process yes Firearm AND pet policy reviewed? 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 Allergies As of Date: 10/21/2024 Noted Allergy Reaction BACTRIM DS (SULFAMETHOXAZOLE-TRI M*03/20/2005 Comments: blisters in mouth, edema FURADANTIN (NITROFURANTOIN) 03/20/2005 4 - Hives MACROBID (NITROFURANTOIN MONOHYD/*03/20/2005 6 - Diarrhea PREMARIN (CONJUGATED ESTROGENS) 03/20/2005 PROVERA (MEDROXYPROGESTERONE) 03/20/2005 SULFAMETHOXAZOLE 06/11/2021 7 - Swelling TRIMETHOPRIM 06/11/2021 7 - Swelling Date Reviewed: 10/16/2024 Reviewed by: Dariela Morrell MA - Fully Assessed Reason for Visit: [id number] Palliative Care [Other] Prescriptions as of 10/27/2024 - levothyroxine (TIROSINT-SANJAY) 37.5 mcg/mL solution Take 3 mL (contents of 3 ampules) by mouth daily before breakfast. - Ferrous Gluconate 225 mg (27 mg iron) tab Take 1 tablet by mouth every afternoon. - amLODIPine (NORVASC) 2.5 mg tablet Take 1 tablet by mouth once daily. - apixaban (ELIQUIS) 5 mg tab(s) Take 1 tablet by mouth two times a day. - citalopram hydrobromide (CELEXA) 10 mg tablet Take 1 tablet by mouth once daily. - famotidine (PEPCID) 40 mg tablet Take 1 tablet by mouth every afternoon. - memantine (NAMENDA) 5 mg tablet Take 1 tablet by mouth two times a day. Please start by taking 5 mgs once a day and increase to taking 5 mgs 2 times a day - metoprolol succinate ER (TOPROL XL) 50 mg 24 hr tablet Take 1 tablet by mouth every afternoon. - pravastatin (PRAVACHOL) 20 mg tablet Take 1 tablet by mouth every afternoon. Problem List As Of Date 10/21/2024 Noted Resolved Gastroesophageal reflux disease without esophag* Acquired hypothyroidism [E03.9] 09/26/2005 Essential hypertension [I10] MELENA, BLOOD IN STOOL [K92.1] 08/12/2006 Pain in joint, lower leg [M25.569] 10/31/2006 01/23/2016 Other acquired deformity of toe [M20.5X9] 09/12/2010 01/23/2016 Ganglion of joint [M67.40] 09/12/2010 01/23/2016 Benign francis soft tissue [D21.9] 09/12/2010 Benign essential microscopic hematuria [R31.1] 02/22/2011 Osteoarthritis [M19.90] 07/10/2013 Medicare annual wellness visit, subsequent [Z00*01/23/2016 Memory loss [R41.3] 01/23/2016 08/12/2018 Balance problem [R26.89] 03/22/2016 B12 deficiency [E53.8] 03/22/2016 MESCALERO APACHE (hard of hearing) [H91.90] 03/22/2016 Screening for colon cancer [Z12.11] 12/24/2016 PVC's (premature ventricular contractions) [I49*09/12/2018 Mixed hyperlipidemia [E78.2] 02/10/2019 CKD (chronic kidney disease) stage 3, GFR 30-59*08/12/2019 Chronic pain of left knee [M25.562, G89.29] 05/03/2023 Chronic knee instability, 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 Avila informed a/c technician patient has about 2 months left of meds as she hasn't been taking regularly. stated he made provider aware of situation and is planning on working with office to simplify medication regimen. We will f/u with patient in 1 month. Thanks, Nehal Pablo [facility] Vanessa Her MD 10/20/2024 6:53 PM Signed Waiting for palliative care nursing to consult I think it is fine to just be on the levothyroxine as that is the only medication she is taking for the past 2 months. Regards, Vanessa Her MD Allergies As of Date: 10/20/2024 Noted Allergy Reaction BACTRIM DS (SULFAMETHOXAZOLE-TRI M*03/20/2005 Comments: blisters in mouth, edema FURADANTIN (NITROFURANTOIN) 03/20/2005 4 - Hives MACROBID (NITROFURANTOIN MONOHYD/*03/20/2005 6 - Diarrhea PREMARIN (CONJUGATED ESTROGENS) 03/20/2005 PROVERA (MEDROXYPROGESTERONE) 03/20/2005 SULFAMETHOXAZOLE 06/11/2021 7 - Swelling TRIMETHOPRIM 06/11/2021 7 - Swelling Date Reviewed: 10/16/2024 Reviewed by: Dariela Morrell MA - Fully Assessed Reason for Visit: Compliance Adherence [[id number]] Prescriptions as of 10/21/2024 - levothyroxine (TIROSINT-SANJAY) 37.5 mcg/mL solution Take 3 mL (contents of 3 ampules) by mouth daily before breakfast. - Ferrous Gluconate 225 mg (27 mg iron) tab Take 1 tablet by mouth every afternoon. - amLODIPine (NORVASC) 2.5 mg tablet Take 1 tablet by mouth once daily. - apixaban (ELIQUIS) 5 mg tab(s) Take 1 tablet by mouth two times a day. - citalopram hydrobromide (CELEXA) 10 mg tablet Take 1 tablet by mouth once daily. - famotidine (PEPCID) 40 mg tablet Take 1 tablet by mouth every afternoon. - memantine (NAMENDA) 5 mg tablet Take 1 tablet by mouth two times a day. Please start by taking 5 mgs once a day and increase to taking 5 mgs 2 times a day - metoprolol succinate ER (TOPROL XL) 50 mg 24 hr tablet Take 1 tablet by mouth every afternoon. - pravastatin (PRAVACHOL) 20 mg tablet Take 1 tablet by mouth every afternoon. Problem List As Of Date 10/20/2024 Noted Resolved Gastroesophageal reflux disease without esophag* Acquired hypothyroidism [E03.9] 09/26/2005 Essential hypertension [I10] MELENA, BLOOD IN STOOL [K92.1] 08/12/2006 Pain in joint, lower leg [M25.569] 10/31/2006 01/23/2016 Other acquired deformity of toe [M20.5X9] 09/12/2010 01/23/2016 Ganglion of joint [M67.40] 09/12/2010 01/23/2016 Benign francis soft tissue [D21.9] 09/12/2010 Benign essential microscopic hematuria [R31.1] 02/22/2011 Osteoarthritis [M19.90] 07/10/2013 Medicare annual wellness visit, subsequent [Z00*01/23/2016 Memory loss [R41.3] 01/23/2016 08/12/2018 Balance problem [R26.89] 03/22/2016 B12 deficiency [E53.8] 03/22/2016 MESCALERO APACHE (hard of hearing) [H91.90] 03/22/2016 Screening for colon cancer [Z12.11] 12/24/2016 PVC's (premature ventricular contractions) [I49*09/12/2018 Mixed hyperlipidemia [E78.2] 02/10/2019 CKD (chronic kidney disease) stage 3, GFR 30-59*08/12/2019 Chronic pain of left knee [M25.562, G89.29] 05/03/2023 Chronic knee instability, 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 This Sw also received consult for palliative care services. Sw will check with Home Care and see what their response is to setting up patient care services. Pranav Gorman MSW 10/20/2024 8:32 AM Signed Shanon received message back that [facility] Palliative Care Dept, will be reaching out to patient/spouse to schedule consult with their dept. Allergies As of Date: 10/19/2024 Noted Allergy Reaction BACTRIM DS (SULFAMETHOXAZOLE-TRI M*03/20/2005 Comments: blisters in mouth, edema FURADANTIN (NITROFURANTOIN) 03/20/2005 4 - Hives MACROBID (NITROFURANTOIN MONOHYD/*03/20/2005 6 - Diarrhea PREMARIN (CONJUGATED ESTROGENS) 03/20/2005 PROVERA (MEDROXYPROGESTERONE) 03/20/2005 SULFAMETHOXAZOLE 06/11/2021 7 - Swelling TRIMETHOPRIM 06/11/2021 7 - Swelling Date Reviewed: 10/16/2024 Reviewed by: Dariela Morrell MA - Fully Assessed Prescriptions as of 10/20/2024 - levothyroxine (TIROSINT-SANJAY) 37.5 mcg/mL solution Take 3 mL (contents of 3 ampules) by mouth daily before breakfast. - Ferrous Gluconate 225 mg (27 mg iron) tab Take 1 tablet by mouth every afternoon. - amLODIPine (NORVASC) 2.5 mg tablet Take 1 tablet by mouth once daily. - apixaban (ELIQUIS) 5 mg tab(s) Take 1 tablet by mouth two times a day. - citalopram hydrobromide (CELEXA) 10 mg tablet Take 1 tablet by mouth once daily. - famotidine (PEPCID) 40 mg tablet Take 1 tablet by mouth every afternoon. - memantine (NAMENDA) 5 mg tablet Take 1 tablet by mouth two times a day. Please start by taking 5 mgs once a day and increase to taking 5 mgs 2 times a day - metoprolol succinate ER (TOPROL XL) 50 mg 24 hr tablet Take 1 tablet by mouth every afternoon. - pravastatin (PRAVACHOL) 20 mg tablet Take 1 tablet by mouth every afternoon. Problem List As Of Date 10/19/2024 Noted Resolved Gastroesophageal reflux disease without esophag* Acquired hypothyroidism [E03.9] 09/26/2005 Essential hypertension [I10] MELENA, BLOOD IN STOOL [K92.1] 08/12/2006 Pain in joint, lower leg [M25.569] 10/31/2006 01/23/2016 Other acquired deformity of toe [M20.5X9] 09/12/2010 01/23/2016 Ganglion of joint [M67.40] 09/12/2010 01/23/2016 Benign francis soft tissue [D21.9] 09/12/2010 Benign essential microscopic hematuria [R31.1] 02/22/2011 Osteoarthritis [M19.90] 07/10/2013 Medicare annual wellness visit, subsequent [Z00*01/23/2016 Memory loss [R41.3] 01/23/2016 08/12/2018 Balance problem [R26.89] 03/22/2016 B12 deficiency [E53.8] 03/22/2016 MESCALERO APACHE (hard of hearing) [H91.90] 03/22/2016 Screening for colon cancer [Z12.11] 12/24/2016 PVC's (premature ventricular contractions) [I49*09/12/2018 Mixed hyperlipidemia [E78.2] 02/10/2019 CKD (chronic kidney disease) stage 3, GFR 30-59*08/12/2019 Chronic pain of left knee [M25.562, G89.29] 05/03/2023 Chronic knee instability, 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 Medicare Health Risk Assessment General Health Fair Exercise: Minutes/Day 0 min Exercise: Days/Week 0 days Alcohol: Daily Use Monthly or less Alcohol: Drinks/Day 1 or 2 Alcohol: 6 or more drinks Never Feel off balance No Concerns: Teeth/Dentures No Concerns: Sexual function Decline Troubled by feelings Stressed Frequency: Eating healthy diet Nearly every day ADLs requiring help Grocery shopping; Cooking; Housework; Bathing; Grooming; Dressing; Handling finances; Taking medications; Using the telephone; Driving Safety precautions in home/vehicle Yes Smoke, vape, chews tobacco No Difficulty hearing No Difficulty seeing No Current Providers Specialists: I have reviewed specialist-related care of the patient in the medical record. Medical/Family history review Reviewed and updated problem list, medical/surgical/fami ly/social history, medications, and allergies. Opioid use review Opioid Medications (last 90 days) No data to display Anxiety/Depression screening PHQ-9 Score: 9 (Mild Depression) RYLEE-7 Score: 6 (Mild Anxiety) Recommendation: no further intervention at this time Cognitive screening 0 Cognitive screening reviewed and she needs to be in a Memory care unit Functional Observation Was the patient's Timed Up AND Go test unsteady or >= 12 seconds? No Advance Care Planning Surrogate decision maker and/or advance care plan documented Measurements BP 135/77 Pulse 66 Resp 16 Wt 81.9 kg (180 lb 9.6 oz) BMI 30.05 kg/m? Vision Screening: Follows with optometry/ophthalmolo gy Assessment/Plan Medicare annual wellness visit, subsequent (Z00.00) - Counseled on healthy diet and regular exercise - Fall avoidance information provided - Personalized prevention plan provided Reason for Visit HPI Gertrude Flores is a 84-year-old female with a history of HTN, atrial fibrillation, and hypothyroidism, presenting for a follow-up visit. She is accompanied by her , who is providing history on her behalf. Gertrude has reportedly been non-adherent to her medication regimen for the past 2 months, only consistently taking her thyroid medication, which is dissolved in water. Her notes that she has been refusing to take her other medications, including her antihypertensive and anticoagulant, and has been found hiding pills under cushions. He expresses difficulty in managing her medication adherence and is seeking assistance. Gertrude denies any recent falls or injuries. She is able to ambulate and perform activities of daily living with assistance from her . She denies any new symptoms or changes in her health status. Social History Tobacco Use Smoking status: Former Current packs/day: 0.00 Types: Cigarettes Quit date: 1998 Years since quittin.5 Smokeless tobacco: Never Vaping Use Vaping status: Never Used Substance Use Topics Alcohol use: Yes Comment: occasionally - bottle of wine share once monthly (02/2016) Drug use: No Past medical history, appointments, medications, allergies reviewed. Pertinent Lab/Diagnostic Studies are reviewed and discussed today Current Outpatient Medications: levothyroxine (TIROSINT-SANJAY) 37.5 mcg/mL solution Ferrous Gluconate 225 mg (27 mg iron) tab amLODIPine (NORVASC) 2.5 mg tablet apixaban (ELIQUIS) 5 mg tab(s) citalopram hydrobromide (CELEXA) 10 mg tablet famotidine (PEPCID) 40 mg tablet memantine (NAMENDA) 5 mg tablet metoprolol succinate ER (TOPROL XL) 50 mg 24 hr tablet pravastatin (PRAVACHOL) 20 mg tablet Health Maintenance Medicare Annual Wellness Visit DTaP,Tdap,Td Vaccine(2 - Td or Tdap) Advance Directive Discussion@ Review Of Systems Musculoskeletal: (+) falls Physical Exam BP 135/77 Pulse 66 Resp 16 Wt 81.9 kg (180 lb 9.6 oz) BMI 30.05 kg/m? GENERAL: NAD, alert and oriented SKIN: unremarkable, no rash or skin lesions. HEAD: normocephalic EYES: PERRLA, EOMI, conjunctiva clear LUNGS: Clear to auscultation bilaterally, no wheezes/rhonchi/rales . HEART: Regular rate and rhythm, no murmurs. No ectopy. EXTREMITIES: Normal, No deformities, No skin discoloration, No edema. NEURO: Awake, alert and oriented x3, cranial nerves II-XII grossly intact, normal gait, no involuntary motions Assessment and Plan 1. Medicare annual wellness visit, subsequent (Z00.00) Patient is not adhering to medication regimen, only taking thyroid medication regularly. Refuses other medic (more content not included)... Normal [facility] CNOVon 08-21-2024 CNOV Office Visit (INTMWS ) GERTRUDE FLORES ([id number]) 1940 F Date Time Provider Department 08/21/24 9:20 AM VANESSA HER INTMWS During your visit today, we recorded the following information about you: Vanessa Her MD 08/21/2024 10:24 AM Signed We discussed Gertrude's dementia and care needs: - Gails dementia has progressed to a severe stage, and she is unable to care for herself or take medications reliably. - I recommend transitioning Gertrude to a memory care unit for her safety and well-being. Memory care facilities have the skills and resources to manage her needs, including medication administration and behavioral challenges. - You should remain at home for as long as you are able to manage independently. If needed in the future, consider transitioning yourself to an assisted living facility. - Once Gertrude is in the memory care unit, you can visit her regularly and provide emotional support without compromising your own health. We discussed Gertrude's medications: - Gertrude is not taking her medications consistently. At this stage, it is acceptable to focus on comfort and safety rather than strict adherence to her medication regimen. - I have prescribed Synthroid (levothyroxine) in an oral solution form (112 mcg per 3 mL). Mix 3 mL of the solution in water and encourage her to drink it daily. This prescription has been sent to [facility] and includes a 90-day supply with three refills. - If Gertrude refuses to take the Synthroid solution or other medications, do not force her. It is okay to let her decline them. We discussed advanced care planning: - Gails condition will continue to progress, and there is no cure for dementia. - Ensure that her living will and advanced directives are up to date. Gertrude should have a Do Not Resuscitate (DNR) order in place, as resuscitation would not improve her quality of life. - If Gertrude's condition worsens significantly, consider transitioning her to hospice care to focus on comfort and symptom management. Next steps: - Work on transitioning Gertrude to a memory care unit as soon as possible. - Monitor her response to the Synthroid oral solution. If she refuses it or if you have concerns, please contact me. - Call our office if you need further guidance or support. Vanessa Her MD 08/21/2024 10:42 AM Addendum Reason for Visit Care planning HPI Gertrude is a 84-year-old female with a history of dementia, presenting with medication noncompliance and worsening cognitive function. Her is present and providing history on her behalf. Gertrude's reports that she has been noncompliant with her medications, including Synthroid, antihypertensives, and anticoagulants. Despite his efforts to encourage her to take her medications, she has been hiding them under cushions and refusing to take them even when supervised. He expresses concern that her noncompliance with Synthroid, which she has been taking at a dose of 112 mcg for the past 10 years, may exacerbate her condition. He inquires about the possibility of administering Synthroid via injection or oral solution mixed with water. Gertrude has been experiencing worsening cognitive function, including hallucinations and delusions. She frequently mentions seeing people who are not present and expresses a desire to go home to mom and dad. She also believes that her sister, who 15 years ago, is in the house. These episodes are becoming more frequent and are causing significant distress to both Gertrude and her . Gertrude's reports that he is struggling to manage her care at home and is considering placing her in a memory care unit. He expresses feelings of frustration and anger, and is concerned about the impact of her condition on their relationship and his own mental health. He mentions that they have visited a facility with a memory care unit and are considering this option for her care. Social History Tobacco Use Smoking status: Former Current packs/day: 0.00 Types: Cigarettes Quit date: 1998 Years since quittin.4 Smokeless tobacco: Never Vaping Use Vaping status: Never Used Substance Use Topics Alcohol use: Yes Comment: occasionally - bottle of wine share once monthly (02/2016) Drug use: No Past medical history, appointments, medications, allergies reviewed. Pertinent Lab/Diagnostic Studies are reviewed and discussed today Current Outpatient Medications: levothyroxine (TIROSINT-SANJAY) 37.5 mcg/mL solution Ferrous Gluconate 225 mg (27 mg iron) tab amLODIPine (NORVASC) 2.5 mg tablet apixaban (ELIQUIS) 5 mg tab(s) citalopram hydrobromide (CELEXA) 10 mg tablet famotidine (PEPCID) 40 mg tablet memantine (NAMENDA) 5 mg tablet metoprolol succinate ER (TOPROL XL) 50 mg 24 hr tablet pravastatin (PRAVACHOL) 20 mg tablet (more content not included)... Normal [facility] CNOVon 06-10-2024 CNOV Office Visit (CARDMM ) GERTRUDE FLORES ([id number]) 1940 F Date Time Provider Department 06/10/24 11:30 AM JUANA PRABHAKAR During your visit today, we recorded the following information about you: Pulse Blood pressure Weight Height 61/minute 132/74 83 kg 1.651 m Juana Prabhakar, 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 06/22/2024 12:55 PM [facility] [place] Walter Rodriguez Department of Cardiovascular Medicine SECTION OF CLINICAL CARDIOLOGY OUTPATIENT VISIT DATE June 10, 2024 OUTPATIENT VISIT TYPE ESTABLISHED Elements of this note, including but not limited to HPI, ROS, Physical Exam, Assessment and Plan were copied and pasted from previous office visit notes completed within our department. Updates have been made where appropriate/noted and reflect current exam and medical decision making from date of this visit. Patient Name: Gertrude Flores : 1940 PRIMARY CARE PHYSICIAN: Vanessa Her MD CHIEF COMPLAINT: Patient presents with: CARD Follow Up 3 Month: ECHO 04/09/24 No new cardiac concerns Interval Hx: Ms. Flores comes for a follow up visit. The last office visit visit with Dr. Crocker was 03/09/2024. Patient with 0 hospitalizations or ER visits since last OV. Since last office visit patient has been feeling ok. TAking meds as ordered No GI / bleeding on Eliauis Rare palps Rare D/L No syncope No falls Amble to ambulate around the house >> up stairs Has some SOB No chest pain Not checking HR and BP at home helps with meds >> takes meds through the day Appetite is good Water is good Sleep is fair IMPRESSION/PLAN: Persistent Atrial Fibrillation - continue toprol 50 mg daily - anticoagulated with Eliquis 5 mg BID HTN - continue Amlodipine and Toprol HLD - continue current statin PVC's - controlled Patient instructions: Echo shows that the heart is strong >> normal heart pumping is normal. Continue all your same medications Stay hydrated Low salt diet Follow up in 1 year >> or sooner if needed Thank you very much for allowing me to assist in the care of Gertrude Flores. The above information was discussed at length and detail with the patient who verbalized an understanding of the plan and was given ample opportunity to ask questions. The appropriate follow up has been arranged. I have advised the patient to contact me if any questions/problems arise prior to the follow up. Juana Prabhakar APRN.[facility] Cardiology Nurse Practitioner Section of Regional Cardiology [facility] Dept of Cardiovascular Medicine [facility] [place] [address] [place] [address] Office Office June 10, 2024 11:39 AM This note was partially generated using [employer] voice recognition system and may contain errors related to that system including grammar, punctuation, spelling, and words that may be inappropriate. CARDIAC STUDIES: LV Ejection Fraction (%) Date Value 04/09/2024 56 09/23/2018 52 10/03/2009 60 Last ECHO Result Conclusion ECHO Collected: 04/09/2024 1:46 PM (Final result) Impression: CONCLUSIONS: - Exam indication: AFIB - The left ventricle is normal in size. Left ventricular systolic function is normal. EF = 56 ? 5% (2D biplane) GLS= -18.6% Normal. - The right ventricle is normal in size. Right ventricular systolic function is normal. - The left atrial cavity is severely dilated. - The right atrial cavity is mildly dilated. - Mild (1+) tricuspid valve regurgitation. - Mild aortic sclerosis. - Exam was compared with the prior OUTSIDE echocardiographic exam performed on 09/23/2018. There is no significant change. * * * Final * * * Last EKG Result Conclusion ECG COMPLETE Collected: 03/09/2024 11:02 AM (Final result) Impression: ATRIAL FIBRILLATION MINIMAL VOLTAGE CRITERIA FOR LVH, MAY BE NORMAL VARIANT ( [place] product ) ABNORMAL ECG Confirmed by MD CROCKER GREGORY () on 03/11/2024 10:23:45 AM LABS: Sodium (mmol/L) Date Value 02/11/2024 141 04/19/2023 138 04/07/2021 144 06/28/2020 142 Potassium (mmol/L) Date Value 02/11/2024 4.2 04/19/2023 4.3 04/07/2021 4.1 06/28/2020 4.2 BUN (mg/dL) Date Value 02/11/2024 17 04/19/2023 17 07/10/2022 13 04/07/2021 13 06/28/2020 18 08/12/2018 16 12/04/2017 14 Creatinine (mg/dL) Date Value 02/11/2024 1.02 04/19/2023 1.05 07/10/2022 1.04 04/07/2021 1.06 06/28/2020 1.10 08/12/2018 1.13 12/04/2017 1.13 Magnesium (mg/dL) Date Value 08/12/2018 2.1 09/01/2007 2.3 Hemoglobin (g/dL) Date Value 05/19/2024 13.3 10/24/2023 10.9 04/07/2021 14.0 06/28/2020 14.8 No results found for: PROBNP No results found for: HSTNT Cholesterol, Total ( (more content not included)... Normal [facility] CNPNon 05-26-2024 CNPN Telephone (RXADH) GERTRUDE FLORES ([id number]) 1940 F Date Time Provider Department 05/26/24 YAMILET ADAMSON RXADH During your visit today, we recorded the following information about you: Yamilet Adamson elizabeth 05/26/2024 4:01 PM Signed Pharmacy-Reviewed Medication History Patient Name:.Gertrude Flores : 1940 Patient Contact Attempt: First attempt Adherence Packing Program Accepted? Yes, patient wishes to participate. Yamilet Adamson RPh May 26, 2024 4:00 PM [facility] [phone] Allergies As of Date: 05/26/2024 Noted Allergy Reaction BACTRIM DS (SULFAMETHOXAZOLE-TRI M*03/20/2005 Comments: blisters in mouth, edema FURADANTIN (NITROFURANTOIN) 03/20/2005 4 - Hives MACROBID (NITROFURANTOIN MONOHYD/*03/20/2005 6 - Diarrhea PREMARIN (CONJUGATED ESTROGENS) 03/20/2005 PROVERA (MEDROXYPROGESTERONE) 03/20/2005 SULFAMETHOXAZOLE 06/11/2021 7 - Swelling TRIMETHOPRIM 06/11/2021 7 - Swelling Date Reviewed: 05/19/2024 Reviewed by: Dori Wheat LPN - Fully Assessed Reason for Visit: Compliance Adherence [[id number]] Prescriptions as of 12/31/2024 - levothyroxine (TIROSINT-SANJAY) 37.5 mcg/mL solution Take 3 mL (contents of 3 ampules) by mouth daily before breakfast. - Ferrous Gluconate 225 mg (27 mg iron) tab Take 1 tablet by mouth every afternoon. - amLODIPine (NORVASC) 2.5 mg tablet Take 1 tablet by mouth once daily. - apixaban (ELIQUIS) 5 mg tab(s) Take 1 tablet by mouth two times a day. - citalopram hydrobromide (CELEXA) 10 mg tablet Take 1 tablet by mouth once daily. - famotidine (PEPCID) 40 mg tablet Take 1 tablet by mouth every afternoon. - memantine (NAMENDA) 5 mg tablet Take 1 tablet by mouth two times a day. Please start by taking 5 mgs once a day and increase to taking 5 mgs 2 times a day - metoprolol succinate ER (TOPROL XL) 50 mg 24 hr tablet Take 1 tablet by mouth every afternoon. - pravastatin (PRAVACHOL) 20 mg tablet Take 1 tablet by mouth every afternoon. Problem List As Of Date 05/26/2024 Noted Resolved Gastroesophageal reflux disease without esophag* Acquired hypothyroidism [E03.9] 09/26/2005 Essential hypertension [I10] MELENA, BLOOD IN STOOL [K92.1] 08/12/2006 Pain in joint, lower leg [M25.569] 10/31/2006 01/23/2016 Other acquired deformity of toe [M20.5X9] 09/12/2010 01/23/2016 Ganglion of joint [M67.40] 09/12/2010 01/23/2016 Benign francis soft tissue [D21.9] 09/12/2010 Benign essential microscopic hematuria [R31.1] 02/22/2011 Osteoarthritis [M19.90] 07/10/2013 Medicare annual wellness visit, subsequent [Z00*01/23/2016 Memory loss [R41.3] 01/23/2016 08/12/2018 Balance problem [R26.89] 03/22/2016 B12 deficiency [E53.8] 03/22/2016 [place] (hard of hearing) [H91.90] 03/22/2016 Screening for colon cancer [Z12.11] 12/24/2016 PVC's (premature ventricular contractions) [I49*09/12/2018 Mixed hyperlipidemia [E78.2] 02/10/2019 Dementia without behavioral disturbance (HCC) [*02/10/2019 CKD (chronic kidney disease) stage 3, GFR 30-59*08/12/2019 Chronic pain of left knee [M25.562, G89.29] 05/03/2023 Chronic knee instability, 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] 05/03/2023 Persistent atrial fibrillation (HCC) [I48.19] 03/09/2024 Encounter Status:Closed by YAMILET ADAMSON on 12/31/24 Normal [facility] CBC W Auto Differential pane l (Bld)on 05-19-2024 Basophils (Bld) [#/Vol] 0.09 10*3/uL [facility] Basophils/100 WBC (Bld) 1 % C [facility] Differential cell count method Nom (Bld) Auto [facility] Eosinophils (Bld) [#/Vol] 0.28 10*3/uL [facility] Eosinophils/100 WBC (Bld) 3.2 % [facility] Erythrocyte distribution width (RBC) [Ratio] 14.2 % 11.5 - 15.0 % [facility] Hematocrit (Bld) [Volume fraction] 41.7 % 36.0 - 46.0 % [facility] Hemoglobin (Bld) [Mass/Vol] 13.3 g/dL 11.5 - 15.5 g/dL [facility] Immature granulocytes (Bld) [#/Vol] 0.03 10*3/uL [facility] Immature granulocytes/100 WBC (Bld) 0.3 % [facility] Lymphocytes (Bld) [#/Vol] 1.77 10*3/uL [facility] Lymphocytes/100 WBC (Bld) 20.5 % [facility] MCH (RBC) [Entitic mass] 28.7 pg 26. 0 - 34.0 pg [facility] MCHC (RBC) [Mass/Vol] 31.9 g/dL 30.5 - 36.0 g/dL [facility] MCV (RBC) [Entitic vol] 89.9 fL 80.0 - 100.0 fL [facility] Monocytes (Bld) [#/Vol] 0.71 10*3/uL [facility] Monocytes/100 WBC (Bld) 8.2 % C [facility] Neutrophils (Bld) [#/Vol] 5.77 10*3/uL [facility] Neutrophils/100 WBC (Bld) 66.8 % [facility] Nucleated RBC (Bld) [#/Vol] [facility] Nucleated RBC/100 WBC (Bld) [Ratio] 0 % /100 WBC [facility] Platelet mean volume (Bld) [Entitic vol] 10.4 fL 9.0 - 12.7 fL [facility] Platelets (Bld) [#/Vol] 299 10*3/uL [facility] RBC (Bld) [#/Vol] 4.64 10*6/uL 3.90 - 5.2 0 m/uL [facility] WBC (Bld) [#/Vol] 8.65 10*3/uL [facility] Basophils (Bld) [#/Vol] 0.09 10*3/uL Normal <0.11 [facility] Comment on above: Order Comment: Speci men Type: BLOOD SPECIMENOrdering Facility: [facility] Address: [address] [place] [address] Performed By: #### 5 7021-8 ####[facility] MILLWNCLIA [id number] [place] [address] [place] Basophils/100 WBC (Bld) 1.0 % Normal [facility] Comment on above: Order Comment: Speci men Type: BLOOD SPECIMENOrdering Facility: [facility] Address: [address] [place] [address] Performed By: #### 5 7021-8 ####[facility] MILLWNCLIA [id number] [place] [address] [place] Differential cell count method Nom (Bld) Auto Normal [facility] Comment on above: Order Comment: Speci men Type: BLOOD SPECIMENOrdering Facility: [facility] Address: [address] [place] [address] Performed By: #### 5 7021-8 ####[facility] MILLTOWNCLIA [id number] [place] [address] [place] Eosinophils (Bld) [#/Vol] 0.28 10*3/uL Normal <0.46 [facility] Comment on above: Order Comment: Speci men Type: BLOOD SPECIMENOrdering Facility: [facility] Address: [address] [place] [address] Performed By: #### 5 7021-8 ####[facility] MILLTOWNCLIA [id number] [place] [address] [place] Eosinophils/100 WBC (Bld) 3.2 % Normal [facility] Comment on above: Order Comment: Speci men Type: BLOOD SPECIMENOrdering Facility: [facility] Address: [address] [place] [address] Performed By: #### 5 7021-8 ####[facility] [id number] [place] [address] [place] Erythrocyte distribution width (RBC) [Ratio] 14.2 % Normal 11.5-15.0 [facility] Comment on above: Order Comment: Speci men Type: BLOOD SPECIMENOrdering Facility: [facility] Address: [address] [place] [address] Performed By: #### 5 7021-8 ####[facility] [id number] [place] [address] [place] Hematocrit (Bld) [Volume fraction] 41.7 % Normal 36.0-46.0 [facility] Comment on above: Order Comment: Speci men Type: BLOOD SPECIMENOrdering Facility: [facility] Address: [address] [place] [address] Performed By: #### 5 7021-8 ####[facility] [id number] [place] [address] [place] Hemoglobin (Bld) [Mass/Vol] 13.3 g/dL Normal 11.5-15.5 [facility] Comment on above: Order Comment: Speci men Type: BLOOD SPECIMENOrdering Facility: [facility] Address: [address] [place] [address] Performed By: #### 5 7021-8 ####[facility] [id number] [place] [address] [place] Immature granulocytes (Bld) [#/Vol] 0.03 10*3/uL Normal <0.10 [facility] Comment on above: Order Comment: Speci men Type: BLOOD SPECIMENOrdering Facility: [facility] Address: [address] [place] [address] Performed By: #### 5 7021-8 ####[facility] [id number] [place] [address] [place] Immature granulocytes/100 WBC (Bld) 0.3 % Normal [facility] Comment on above: Order Comment: Speci men Type: BLOOD SPECIMENOrdering Facility: [facility] Address: [address] [place] [address] Performed By: #### 5 7021-8 ####[facility] [id number] [place] [address] [place] Lymphocytes (Bld) [#/Vol] 1.77 10*3/uL Normal 1.00-4.00 [facility] Comment on above: Order Comment: Speci men Type: BLOOD SPECIMENOrdering Facility: [facility] Address: [address] [place] [address] Performed By: #### 5 7021-8 ####[facility] [id number] [place] [address] [place] Lymphocytes/100 WBC (Bld) 20.5 % Normal [facility] Comment on above: Order Comment: Speci men Type: BLOOD SPECIMENOrdering Facility: [facility] Address: [address] [place] [address] Performed By: #### 5 7021-8 ####[facility] [id number] [place] [address] [place] MCH (RBC) [Entitic mass] 28.7 pg Normal 26.0-34.0 [facility] Comment on above: Order Comment: Speci men Type: BLOOD SPECIMENOrdering Facility: [facility] Address: [address] [place] [address] Performed By: #### 5 7021-8 ####[facility] MILLWNCLIA [id number] [place] [address] [place] MCHC (RBC) [Mass/Vol] 31.9 g/dL Normal 30.5-36.0 [facility] Comment on above: Order Comment: Speci men Type: BLOOD SPECIMENOrdering Facility: [facility] Address: [address] [place] [address] Performed By: #### 5 7021-8 ####[facility] BEACHESNCLIA [id number] [place] [address] [place] MCV (RBC) [Entitic vol] 89.9 fL Normal 80.0-100.0 [facility] Comment on above: Order Comment: Speci men Type: BLOOD SPECIMENOrdering Facility: [facility] Address: [address] [place] [address] Performed By: #### 5 7021-8 ####[facility] BEACHESNCLIA [id number] [place] [address] [place] Monocytes (Bld) [#/Vol] 0.71 10*3/uL Normal <0.87 [facility] Comment on above: Order Comment: Speci men Type: BLOOD SPECIMENOrdering Facility: [facility] Address: [address] [place] [address] Performed By: #### 5 7021-8 ####[facility] BEACHESNCLIA [id number] [place] [address] [place] Monocytes/100 WBC (Bld) 8.2 % Normal [facility] Comment on above: Order Comment: Speci men Type: BLOOD SPECIMENOrdering Facility: [facility] Address: [address] [place] [address] Performed By: #### 5 7021-8 ####[facility] BEACHESNCLI [id number] [place] [address] [place] Neutrophils (Bld) [#/Vol] 5.77 10*3/uL Normal 1.45-7.50 [facility] Comment on above: Order Comment: Speci men Type: BLOOD SPECIMENOrdering Facility: [facility] Address: [address] [place] [address] Performed By: #### 5 7021-8 ####[facility] HOSPITALWTNLIA [id number] [place] [address] [place] Neutrophils/100 WBC (Bld) 66.8 % Normal [facility] Comment on above: Order Comment: Speci men Type: BLOOD SPECIMENOrdering Facility: [facility] Address: [address] [place] [address] Performed By: #### 5 7021-8 ####[facility] [id number] [place] [address] [place] Nucleated RBC (Bld) [#/Vol] 10*3/uL Normal <0.01 [facility] Comment on above: Order Comment: Speci men Type: BLOOD SPECIMENOrdering Facility: [facility] Address: [address] [place] [address] Performed By: #### 5 7021-8 ####[facility]LEL[facility] [id number] [place] [address] [place] Nucleated RBC/100 WBC (Bld) [Ratio] 0.0 /100 WBC Normal [facility] Comment on above: Order Comment: Speci men Type: BLOOD SPECIMENOrdering Facility: [facility] Address: [address] [place] [address] Performed By: #### 5 7021-8 ####[facility] BEACHESNCLIA [id number] [place] [address] [place] Platelet mean volume (Bld) [Entitic vol] 10.4 fL Normal 9.0-12.7 [facility] Comment on above: Order Comment: Speci men Type: BLOOD SPECIMENOrdering Facility: [facility] Address: [address] [place] [address] Performed By: #### 5 7021-8 ####[facility] CORNELIUSNCLIA [id number] [place] [address] [place] Platelets (Bld) [#/Vol] 299 10*3/uL Normal 150-400 [facility] Comment on above: Order Comment: Speci men Type: BLOOD SPECIMENOrdering Facility: [facility] Address: [address] [place] [address] Performed By: #### 5 7021-8 ####[facility] BEACHESNCLIA [id number] [place] [address] [place] RBC (Bld) [#/Vol] 4.64 10*6/uL Normal 3.90-5.20 [facility] Comment on above: Order Comment: Speci men Type: BLOOD SPECIMENOrdering Facility: [facility] Address: [address] [place] [address] Performed By: #### 5 7021-8 ####[facility] BEACHESNCLIA [id number] [place] [address] [place] WBC (Bld) [#/Vol] 8.65 10*3/uL Normal 3.70-11.00 [facility] Comment on above: Order Comment: Speci men Type: BLOOD SPECIMENOrdering Facility: [facility] Address: [address] [place] [address] Performed By: #### 5 7021-8 ####[facility] BEACHESNCLIA [id number] [place] [address] [place] CNOVon 05-19-2024 CNOV Office Visit (INTMWS ) GERTRUDE FLORES ([id number]) 1940 F Date Time Provider Department 05/19/24 9:00 AM VANESSA HER INTMDAMIÁN During your visit today, we recorded the following information about you: Pulse Blood pressure Weight Height 67/minute 138/88 82.6 kg 1.651 m Vanessa Her MD 05/19/2024 1:22 PM Signed Reason for Visit Gertrude Flores is a 84 year oldfemale who presents here Patient presents with: Follow Up Health Maintenance DTaP,Tdap,Td Vaccine(2 - Td or Tdap) RSV Vaccine(1 - 1-dose 75+ series) Influenza Vaccine(1) Covid-19 Vaccine( season) Advance Directive Discussion HPI She has been refusing to take medication, she thinks it is not necessary so has been giving a little push back. wants some suggestions and help with that situation. We emphasized the importance of medication . Also discussed switching zoloft to celexa to see if that would help her more. Recently has had some anemia, in labs 6 months ago, we need to follow that up. She is not exercising like she did in the past. Has trouble with a toe which pains due to nail issues, . 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 Working on getting that fixed. They think the adherence pharmacy would help take off some of the pain that they are having. No problem-specific Assessment AND Plan notes found for this encounter. 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 colon polyps Dementia without behavioral disturbance (HCC) Diverticulitis of colon with hemorrhage Esophageal reflux GERD Hemorrhage of gastrointestinal tract, unspecified 05/23/2001 Internal hemorrhoids without mention of complication 05/23/2001 Unspecified essential hypertension PAST SURGICAL HISTORY Procedure Laterality Date COLONOSCOPY 01/08/2017 COLONOSCOPY FLX DX W/COLLJ SPEC WHEN PFRMD ,05/24 Colonoscopy COLONOSCOPY FLX DX W/COLLJ SPEC WHEN PFRMD 08/23/2006 diverticulosis LAPAROSCOPY SURG CHOLECYSTECTOMY 2002 Cholecystectomy, lap PAST SURGICAL HISTORY OF 01/2007 left knee meniscus repair SALPINGO-OOPHORECTOMY COMPL/PRTL UNI/BI SPX Salpingo-oophorectomy b/l TOTAL ABDOMINAL HYSTERECT W/WO RMVL TUBE OVARY Hysterectomy, SHEN FAMILY HISTORY Problem Relation Age of Onset Alzheimer's Disease Father 81 Thyroid Sister colitis Colon Cancer No Family History Social History Tobacco Use Smoking status: Former Current packs/day: 0.00 Types: Cigarettes Quit date: 1998 Years since quittin.1 Smokeless tobacco: Never Vaping Use Vaping status: Never Used Substance Use Topics Alcohol use: Yes Comment: occasionally - bottle of wine share once monthly (02/2016) Drug use: No Past medical history, appointments, medications, allergies reviewed. Pertinent Lab/Diagnostic Studies are reviewed and discussed today Current Outpatient Medications: Ipratropium [place] (ATROVENT) 21 mcg (0.03 %) nasal spray famotidine (PEPCID) 40 mg tablet metoprolol succinate ER (TOPROL XL) 50 mg 24 hr tablet pravastatin (PRAVACHOL) 20 mg tablet apixaban (ELIQUIS) 5 mg tab(s) amLODIPine (NORVASC) 2.5 mg tablet Ferrous Gluconate 225 mg (27 mg iron) tab levothyroxine (LEVOXYL) 112 mcg tablet sertraline (ZOLOFT) 50 mg tablet memantine (NAMENDA) 5 mg tablet Multivitamins-Mineral s-Lutein (CENTRUM SILVER) Tab Review of Systems CONSTITUTIONAL: No fevers, chills night sweats, unintended weight loss CARDIOVASCULAR: No chest pain, dyspnea, palpitations, orthopnea, PND, ankle edema. PULM: No dyspnea, unexplained cough. GI: No dysphagia/odynophagia , problematic reflux, constipation, diarrhea, changes in stool habits, hematochezia, melena. : No new urinary complaints, including dysuria, gross hematuria or pyuria. NEURO: No new balance problems, peripheral weakness/paresthesias or numbness of concern. Physical Exam BP 138/88 Pulse 67 Ht 165.1 cm (5' 5) Wt 82.6 kg (182 lb) SpO2 98% BMI 30.29 kg/m? General appearance: Well appearing, alert, in no acute distress, well nourished. Skin: Skin color, texture, turgor normal, no suspicious rashes or lesions Head: Normocephalic, no masses, lesions, tenderness or abnormalities Eyes: Anicteric sclera. Pupils are equally round and reactive to light. Extraocular movements are intact. Lungs:Normal breathing efforts, Lungs clear to auscultation. No wheezing, rhonchi, rales Heart: RRR without murmur, gallop, or rubs. Extremities: No deformities, edema, skin discoloration, clubbing or cyanosis. Good capillary refill. ASSESSMENT/PLAN: 1. Acquired hypothyroidism - ICD9: 244.9, ICD10: E03.9 (primary diagnosis) - Instructed patient on importance of taking on an empty stomach either first thing in the morning or at bedtim (more content not included)... Normal [facility] T4 Free SerPl-mCncon 05-19- 025 Free T4 [Mass/Vol] 1.5 ng/dL Normal 0.9-1.7 [facility] Comment on above: Order Comment: Speci men Type: BLOOD SPECIMENOrdering Facility: [facility] Address: [address] [place] [address] Performed By: #### 3 016-3, 3024-7 ####[facility] MultimediaPRINCETON COMMUNITY HOSPITALCLIA [id number] [address] [place] TSH SerPl-aCncon 05-19-2024 TSH Qn 2.920 m[IU]/L Normal 0.270-4.200 [facility] Comment on above: Order Comment: Speci men Type: BLOOD SPECIMENOrdering Facility: [facility] Address: [address] [place] [address] Performed By: #### 3 016-3, 3024-7 ####[facility] MultimediaPRESTON MEMOR[facility] LABORATORYCLIA [id number] [place] [address] [place] ECHOon 04-09-2024 Echocardiography Echocardiography Report: Transthoracic Echo [facility] Office Date of service: 04/09/2024 1:46:20 PM Ordering physician: ROSSY CROCKER Indication: AFIB Technologist: Luis Calzada Interpreting physician: Rossy Crocker DO PATIENT: Name: MRS. GERTRUDE FLORES : 1940 Age: 84 years Gender: F History of arrhythmia, hypertension and dyslipidemia. Primary rhythm: atrial fib. Height: 165.10 cm BSA: 1.89 m Weight: 77.70 kg BMI: 28.5 kg/m Heart rate 47 bpm Blood pressure 122/68 mmHg Color Doppler was utilized to interrogate the cardiac valves assessed and spectral Doppler was utilized to determine the flow velocities and pressure gradients reported in this exam. Myocardial strain analysis was performed in this exam to aid in the assessment of cardiac function. MEASUREMENTS: Value Indexed Normal Max aortic dimension 3.4 cm Ao < 3.8 Left atrial volume 127 ml (Mirza's) 69 ml/m Triny <= 34 LV stroke volume 43 ml (2D biplane) LV end diastolic volume 78 ml (2D biplane) 41.2 ml/m 29<=EDVi<62 LV end systolic volume 34 ml (2D biplane) 18.3 ml/m Ejection Fraction 56 % (2D biplane) EF > 54 FINDINGS: LEFT VENTRICLE The left ventricle is normal in size. Left ventricular systolic function is normal globally. Global LV myocardial strain is normal. Left ventricular diastolic function was not evaluated due to AF. Wall Motion: All scored segments are normal. RIGHT VENTRICLE The right ventricle is normal in size. Right ventricular systolic function is normal. Estimated right ventricular systolic pressure is 18 mmHg consistent with normal pulmonary artery pressures. Estimated right atrial pressure is 3 mmHg based on IVC assessment. LEFT ATRIUM The left atrial cavity is severely dilated. RIGHT ATRIUM The right atrial cavity is mildly dilated. Inferior Vena Cava: The inferior vena cava appears normal measuring 1.8 cm. The vessel decreases greater than 50 percent with inspiration. MITRAL VALVE There is trace (trace - 1+) mitral valve regurgitation. There is mild thickening. TRICUSPID VALVE There is mild (1+) tricuspid valve regurgitation. There is no thickening. AORTIC VALVE There is no aortic valve regurgitation. Tricuspid aortic valve. There is mild thickening. PULMONIC VALVE The pulmonic valve cusps are structurally normal. There is no pulmonic valve regurgitation. AORTA The visualized aorta is normal in size. Measurements - Mid ascending aorta 3.3 cm. Distal ascending aorta 3.4 cm. Mid arch 2.9 cm. PULMONARY ARTERIES The pulmonary arteries are normal. INTERATRIAL SEPTUM The interatrial septum is normal. INTERVENTRICULAR SEPTUM The interventricular septum is normal. PERICARDIUM The pericardium is normal. CORONARY ARTERIES The coronary arteries are unseen or not interrogated. CONCLUSIONS: - Exam indication: AFIB - The left ventricle is normal in size. Left ventricular systolic function is normal. EF = 56 5% (2D biplane) GLS= -18.6% Normal. - The right ventricle is normal in size. Right ventricular systolic function is normal. - The left atrial cavity is severely dilated. - The right atrial cavity is mildly dilated. - Mild (1+) tricuspid valve regurgitation. - Mild aortic sclerosis. - Exam was compared with the prior OUTSIDE echocardiographic exam performed on 09/23/2018. There is no significant change. * * * Final * * * CC [employer] Medical Image : [id number] amicsSISUID Normal [facility] CNOVon 03-09-2024 CNOV Office Visit (BUZZ ) FLORESGERTRUDE ([id number]) 1940 F Date Time Provider Department 03/09/24 11:20 AM ROSSY CROCKER During your visit today, we recorded the following information about you: Pulse Blood pressure Weight Height 83/minute 126/74 77.7 kg 1.651 m Rossy Crocker DO 03/09/2024 12:01 PM Signed [facility] OUTPATIENT VISIT DATE March 09, 2024 PRIMARY CARE PHYSICIAN: Vanessa Her [address] [place] [address] HISTORY OF PRESENT ILLNESS: Ms. Flores is a 83 year old female. The patient returns for follow-up secondary to history of PVCs as well as hypertension and hyperlipidemia. She has noted to have early dementia. Her accompanies her again today. She and her both had a recent day where their heart rate and blood pressures were elevated but has since resolved. Unfortunately today she appears to be in new onset atrial fibrillation on her EKG thankfully with a controlled ventricular response. She may be slightly more fatigued than previous. She denies chest discomfort, dyspnea, orthopnea, paroxysmal nocturnal dyspnea, palpitations, near-syncope or syncope. EKG performed today demonstrates atrial fibrillation with a controlled ventricular response of 83 bpm. PLAN AND RECOMMENDATIONS: The patient remains stable without symptoms that would suggest angina nor cardiac decompensation on her current optimal medical therapy. She unfortunately has new onset atrial fibrillation and require oral anticoagulation with Eliquis. She will get this immediately. We will update an echocardiogram to reevaluate her structure and function. We will follow-up with her in approximately 3 months time for reevaluation. We may consider elective cardioversion however she appears relatively asymptomatic. Dietary and lifestyle modification was reemphasized to facilitate risk factor reduction. Vitals: BP 126/74 Pulse 83 Ht 165.1 cm (5' 5) Wt 77.7 kg (171 lb 4.8 oz) SpO2 98% BMI 28.51 kg/m? Physical Exam Vitals reviewed. Constitutional: General: She is not in acute distress. Appearance: Normal appearance. She is well-developed. HENT: Head: Normocephalic and atraumatic. Nose: Nose normal. Eyes: General: No scleral icterus. Right eye: No discharge. Left eye: No discharge. Pupils: Pupils are equal, round, and reactive to light. Neck: Thyroid: No thyromegaly. Vascular: No carotid bruit or JVD. Cardiovascular: Rate and Rhythm: Normal rate. Rhythm irregular. Heart sounds: Normal heart sounds. No murmur heard. No friction rub. No gallop. Pulmonary: Effort: Pulmonary effort is normal. No respiratory distress. Breath sounds: Normal breath sounds. No wheezing or rales. Abdominal: General: Bowel sounds are normal. Palpations: Abdomen is soft. Musculoskeletal: General: Normal range of motion. Cervical back: Normal range of motion and neck supple. Skin: General: Skin is warm and dry. Capillary Refill: Capillary refill takes less than 2 seconds. Coloration: Skin is not pale. Neurological: Mental Status: She is alert and oriented to person, place, and time. Cranial Nerves: No cranial nerve deficit. Psychiatric: Behavior: Behavior normal. Thought Content: Thought content normal. Judgment: Judgment normal. Review of Systems Constitutional: Positive for fatigue. Negative for activity change. HENT: Negative for ear pain and facial swelling. Eyes: Negative for pain and discharge. Respiratory: Negative for chest tightness and shortness of breath. Cardiovascular: Negative for chest pain, palpitations and leg swelling. Gastrointestinal: Negative for abdominal pain, blood in stool, nausea and vomiting. Endocrine: Negative for cold intolerance and heat intolerance. Genitourinary: Negative for frequency and hematuria. Musculoskeletal: Negative for arthralgias and gait problem. Skin: Negative for color change, pallor and rash. Allergic/Immunologic: Negative for immunocompromised state. Neurological: Negative for dizziness, syncope, light-headedness and headaches. Hematological: Negative for adenopathy. Does not bruise/bleed easily. Psychiatric/Behaviora l: Negative for confusion. The patient is not nervous/anxious. 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 colon polyps Dementia without behavioral disturbance (HCC) Diverticulitis of colon with hemorrhage Esophageal reflux GERD Hemorrhage of gastrointestinal tract, unspecified 05/23/2001 Internal hemorrhoids without mention of complication 05/23/2001 Unspecified essential hypertension PAST SURGICAL HISTORY Procedure Laterality Date COLONOSCOPY 01/08/2017 COLONOSCO (more content not included)... Normal [facility] [id number] 03-09-2024 ECG01 Ventricular Rate : 8 3 BPM QRS Duration : 92 ms Q-T Interval : 372 ms QTC Calculation(Bazett) : 437 ms Calculated R [place] : 31 degrees Calculated T [place] : 22 degrees ATRIAL FIBRILLATION MINIMAL VOLTAGE CRITERIA FOR LVH, MAY BE NORMAL VARIANT ( Amado product ) ABNORMAL ECG Confirmed by MD CROCKER GREGORY () on 03/11/2024 10:23:45 AM NAME : GERTRUDE FLORES PID : [id number] : 1940 Gender : Female Race : ORD : Procedure Date : Mar 09 2024 11:02:00 Edit Date : Mar 11 2024 10:23:48 Diagnosis: ATRIAL FIBRILLATION MINIMAL VOLTAGE CRITERIA FOR LVH, MAY BE NORMAL VARIANT ( Amado product ) ABNORMAL ECG Confirmed by MD CROCKER GREGORY () on 03/11/2024 10:23:45 AM Test Reason : Location : 211 : ARIKARD Overread By : MD CROCKER GREGORY Edited By : MD CROCKER GREGORY Referred By : ROSSY CROCKER Acquired by : Lluvia EASTMAN [facility] CNOVon 02-17-2024 CNOV Office Visit (INTMWS ) GERTRUDE FLORES ([id number]) 1940 F Date Time Provider Department 02/17/24 2:00 PM VANESSA HER INTMWS During your visit today, we recorded the following information about you: Pulse Respiration Blood pressure Weight 62/minute 16/minute 149/81 81.6 kg Vanessa Her MD 02/17/2024 6:23 PM Signed [facility] Initial Consult Gertrude Flores is a 83 year old year old female who comes for Comprehensive Geriatric Assessment. Pt accompanied by: , Sarthak Flores Caregivers involved in care: HPI: Here for follow up of AD. Last visit we had given information on [facility], the has yet to call them, he will call them in the next few days to get more information. Currently not on any cognitive enhancers. B-ADLs: (I=independent,A=assi stance,D=dependent) ?Bathing: I, Dressing: A, Toileting: I, Transferring:I, Continence: I, Feeding: I, (Saini Index): 5 I-ADLs: Ability to use phone: D, Shopping: D, Cooking: D, Housekeeping: D, Laundry: D, Transportation:D, Medications: {D, Handle Finances: D. ([place] scale): 8 ALLERGIES Allergen Reactions Bactrim Ds [Sulfame* blisters in mouth, edema Furadantin [Nitrofu* Hives Macrobid [Nitrofura* Diarrhea Premarin [Conjugate* Provera [Medroxypro* Sulfamethoxazole Swelling Trimethoprim Swelling Physical Exam: General: Well-nourished, kempt Ambulatory: without assistance Mobility Aid: None Head: Normocephalic Eyes: conjunctiva/corneas normal, EOMI Nose: clear Oropharynx: moist without lesions, teeth in good repair Neck: supple and no adenopathy Cardio: Pulmonary: Lungs clear to auscultation bilaterally Extremities: Extremities normal. No deformities, edema, or skin discoloration. Musculoskeletal: Normal Gait Neuro:Deep Tendon reflexes :2/ , Both Mini-Mental State Exam (MMSE): 08/21 Alzheimers dementia with out behavioral disturbances. # Patient has a diagnosis of Alzheimer's dementia and currently is completely dependent on all IADLs and needs help with dressing. She is also sleeping a lot more than normal, her appetite has decreased and so has her weight. She is on Namenda as her heart rate is too low with a pulse rate of 57 to try Aricept. There is significant caregiver stress. has beginning of dementia himself. Since they have no children the only other person to help him is her sister and their nieces. They have looked into a facility near [place] which is more like a memory unit if he cannot drive. He is expecting in a couple years he will not be in the condition to drive. We had given him information for [facility] last visit who had given him a call multiple times but he did not respond back. He does have the number and he has returned the call. We encouraged him to return the call today so that he can know of all the resources that are available for him. Continue the Namenda. Cussed pill packs and he will get back to us if he wants to use it. We also discussed meal delivery if he would be interested in that. He said he will get back to us regarding that. Vanessa Her MD Allergies As of Date: 02/17/2024 Noted Allergy Reaction BACTRIM DS (SULFAMETHOXAZOLE-TRI M*03/20/2005 Comments: blisters in mouth, edema FURADANTIN (NITROFURANTOIN) 03/20/2005 4 - Hives MACROBID (NITROFURANTOIN MONOHYD/*03/20/2005 6 - Diarrhea PREMARIN (CONJUGATED ESTROGENS) 03/20/2005 PROVERA (MEDROXYPROGESTERONE) 03/20/2005 SULFAMETHOXAZOLE 06/11/2021 7 - Swelling TRIMETHOPRIM 06/11/2021 7 - Swelling Date Reviewed: 02/17/2024 Reviewed by: Kinga Gonzalez MA - Fully Assessed Reason for Visit: Follow Up [171] Primary Visit Diagnosis:Alzheimer's dementia without behavioral disturbance, psychotic disturbance, mood disturbance, or anxiety, unspecified dementia severity, unspecified timing of dementia onset (HCC) [G30.9, F02.80] Order(s):amLODIPine (NORVASC) 2.5 mg tabletTake 1 tablet by mouth once daily.Disp: 30 tabletRfl: 2 Prescriptions as of 02/17/2024 - amLODIPine (NORVASC) 2.5 mg tablet Take 1 tablet by mouth once daily. - Ferrous Gluconate 225 mg (27 mg iron) tab Take 1 tablet by mouth daily with breakfast. - levothyroxine (LEVOXYL) 112 mcg tablet Take 1 tablet by mouth once daily. - sertraline (ZOLOFT) 50 mg tablet Take 1 tablet by mouth once daily. - metoprolol succinate ER (TOPROL XL) 50 mg 24 hr tablet take 1 tablet every day - famotidine (PEPCID) 40 mg tablet take 1 tablet every day - memantine (NAMENDA) 5 mg tablet Take 1 tablet by mouth two times a day. Please start by taking 5 mgs once a day and increase to taking 5 mgs 2 times a day - pravastatin (PRAVACHOL) 20 mg tablet take 1 tablet every day - Ipratropium [place] (ATROVENT) 21 mcg (0.03 %) nasal spray Use 2 Sprays in the nose every 12 carin (more content not included)... Normal [facility] Basic metabolic 2000 panelon 02-11-2024 Anion gap [Moles/Vol] 9 mmol/L Normal 8-15 [facility] Comment on above: Order Comment: Speci men Type: BLOOD SPECIMENOrdering Facility: [facility] Address: [address] [place] [address] Performed By: #### 2 4321-2 ####[facility] KENYA HOLLOWAYOKLAHOMA CITYBILL [id number] [place] [id number] [place] Calcium [Mass/Vol] 10.0 mg/dL Normal 8.5-10.2 [facility] Comment on above: Order Comment: Speci men Type: BLOOD SPECIMENOrdering Facility: [facility] Address: [address] [place] [address] Performed By: #### 2 4321-2 ####[facility] MILL[facility]OWNCLIA [id number] [place] [address] [place] Chloride [Moles/Vol] 105 mmol/L Normal 98-[address] [facility] Comment on above: Order Comment: Speci men Type: BLOOD SPECIMENOrdering Facility: [facility] Address: [address] [place] [address] Performed By: #### 2 4321-2 ####[facility] [id number] [place] [address] [place] CO2 [Moles/Vol] 27 mmol/L Normal 22-30 [facility] Comment on above: Order Comment: Speci men Type: BLOOD SPECIMENOrdering Facility: [facility] Address: [address] [place] [address] Performed By: #### 2 4321-2 ####[facility]LE[facility] [id number] [place] [address] [place] Creatinine [Mass/Vol] 1.02 mg/dL High 0.58-0.96 [facility] Comment on above: Order Comment: Speci men Type: BLOOD SPECIMENOrdering Facility: [facility] Address: [address] [place] [address] Performed By: #### 2 4321-2 ####[facility] [id number] [place] [address] [place] Creatinine and Glomerular filtration rate.predicted panel (S/P/Bld) 55 mL/min/1.73m??? Low >=60 [facility] Comment on above: Order Comment: Speci men Type: BLOOD SPECIMENOrdering Facility: [facility] Address: [address] [id number] Result Comment: Jazzy mated Glomerular Filtration Rate (eGFR) is calculated using the 2020 CKD-EPI creatinine equation. This equation utilizes serum creatinine, sex, and age as parameters. The creatinine assay has traceable calibration to isotope dilution-mass spectrometry. Refer to KDIGO guidelines for clinical interpretation. In patients with unstable renal function, e.g. those with acute kidney injury, the eGFR may not accurately reflect actual GFR. Performed By: #### 2 4321-2 ####[facility] [id number] [place] [address] [place] Glucose [Mass/Vol] 94 mg/dL Normal 74-99 [facility] Comment on above: Order Comment: Griffin verdugo Type: BLOOD SPECIMENOrdering Facility: [facility] Address: [address] [place] [address] Result Comment: The [place] Diabetes Association (ADA) provides guidance for cutoff values for fasting glucose and random glucose. The ADA defines fasting as no caloric intake for at least 8 hours. Fasting plasma glucose results between 100 to 125 mg/dL indicate increased risk for diabetes (prediabetes). Fasting plasma glucose results greater than or equal to 126 mg/dL meet the criteria for diagnosis of diabetes. In the absence of unequivocal hyperglycemia, results should be confirmed by repeat testing. In a patient with classic symptoms of hyperglycemia or hyperglycemic crisis, random plasma glucose results greater than or equal to 200 mg/dL meet the criteria for diagnosis of diabetes. Reference: Standards of Medical Care in Diabetes 2016, [place] Diabetes Association. Diabetes Care. 2016.39(Suppl 1). Performed By: #### 2 4321-2 ####[facility] [id number] [place] [address] [place] Potassium [Moles/Vol] 4.2 mmol/L Normal 3.7-5.1 [facility] Comment on above: Order Comment: Griffin verdugo Type: BLOOD SPECIMENOrdering Facility: [facility] Address: [address] [id number] Performed By: #### 2 4321-2 ####[facility] [id number] [place] [address] [place] Sodium [Moles/Vol] 141 mmol/L Normal 136-144 [facility] Comment on above: Order Comment: Speci men Type: BLOOD SPECIMENOrdering Facility: [facility] Address: [address] [place] [address] Performed By: #### 2 4321-2 ####[facility] [id number] [place] [address] [place] Urea nitrogen [Mass/Vol] 17 mg/dL Normal 7-21 [facility] Comment on above: Order Comment: Speci men Type: BLOOD SPECIMENOrdering Facility: [facility] Address: [address] [place] [address] Performed By: #### 2 4321-2 ####[facility] [id number] [place] [address] [place] Lipid 1996 panelon 4 Cholesterol [Mass/Vol] 149 mg/dL Normal <200 [facility] Comment on above: Order Comment: Speci men Type: BLOOD SPECIMENOrdering Facility: [facility] Address: [address] [place] [address] Result Comment: <200 mg/dL, Desirable 200-239 mg/dL, Borderline high >239 mg/dL, High Performed By: #### 2 4331-1 ####[facility] LABCLIA [id number] [place] [id number] [place] [facility] [id number] [place] [address] [place] Cholesterol in HDL [Mass/Vol] 48 mg/dL Normal >39 [facility] Comment on above: Order Comment: Speci men Type: BLOOD SPECIMENOrdering Facility: [facility] Address: [address] [place] [address] Result Comment: 40-5 9 mg/dL, Acceptable >59 mg/dL, High: Negative risk factor for coronary heart disease <40 mg/dL, Low: Positive risk factor for coronary heart disease Performed By: #### 2 4331-1 ####[facility] LABCLIA [id number] [address] [id number] [place] [address] [place] Cholesterol in LDL [Mass/Vol] 87 mg/dL Normal <100 [facility] Comment on above: Order Comment: Ajithi men Type: BLOOD SPECIMENOrdering Facility: [facility] Address: [address] [place] [address] Result Comment: <100 mg/dL, Optimal 100-129 mg/dL, Near optimal/above optimal 130-159 mg/dL, Borderline high 160-189 mg/dL, High >189 mg/dL, Very high Secondary prevention optimal LDL Cholesterol levels are recommended to be < 70 mg/dL Performed By: #### 2 4331-1 ####[facility] LABCLIA [id number] [address] [id number] [place] [address] [place] Cholesterol in LDL/Cholesterol in HDL [Mass ratio] 1.81 {ratio} Normal <2.54 [facility] Comment on above: Order Comment: Ajithi men Type: BLOOD SPECIMENOrdering Facility: [facility] Address: [address] [place] [address] Result Comment: Skye pepper: 1. National Cholesterol Education Program ATP III Guideline At-A-Glance Quick Desk Reference: National Heart, Lung, and Blood [place]. National Institutes of Health. 2001: NIH Publication No. 01-3305. 2. An International Atherosclerosis Society position paper: global recommendations for the management of dyslipidemia: executive summary, Atherosclerosis. 2014: 232(2):410-413. Performed By: #### 2 4331-1 ####[facility] LABCLIA [id number] [address] [id number] [place] [address] [place] Cholesterol in VLDL [Mass/Vol] 14 mg/dL Normal <30 [facility] Comment on above: Order Comment: Speci men Type: BLOOD SPECIMENOrdering Facility: [facility] Address: [address] [place] [address] Performed By: #### 2 4331-1 ####[facility] LABCLIA [id number] [address] [id number] [place] [address] [place] Cholesterol non HDL [Mass/Vol] 101 mg/dL Normal <130 [facility] Comment on above: Order Comment: Speci men Type: BLOOD SPECIMENOrdering Facility: [facility] Address: [address] [place] [address] Result Comment: <130 mg/dL, Optimal 130-159 mg/dL, Near optimal/above optimal 160-189 mg/dL, Borderline high 190-219 mg/dL, High >219 mg/dL, Very high Secondary prevention optimal non HDL Cholesterol levels are recommended to be <100 mg/dL Performed By: #### 2 4331-1 ####[facility] LABCLIA [id number] [address] [id number] [place] [address] [place] Cholesterol.total/Choles terol in HDL [Mass ratio] 3.10 {ratio} Normal <5.10 [facility] Comment on above: Order Comment: Speci men Type: BLOOD SPECIMENOrdering Facility: [facility] Address: [address] [place] [address] Performed By: #### 2 4331-1 ####[facility] LABCLIA [id number] [address] [id number] [place] [address] [place] FASTING TIME 12 hrs Normal [facility] Comment on above: Order Comment: Speci men Type: BLOOD SPECIMENOrdering Facility: [facility] Address: [address] [place] [address] Performed By: #### 2 4331-1 ####[facility] LABCLIA [id number] [address] [id number] [place] [address] [place] Triglyceride [Mass/Vol] 72 mg/dL Normal <150 [facility] Comment on above: Order Comment: Speci men Type: BLOOD SPECIMENOrdering Facility: [facility] Address: [address] [place] [address] Result Comment: <150 mg/dL, Normal 150-199 mg/dL, Borderline high 200-499 mg/dL, High >499 mg/dL, Very high Performed By: #### 2 4331-1 ####[facility] LABCLIA [id number] [address] [id number] [place] [address] [place] Urine Cultureon 11-24-2023 [facility] Streptococcus agalactiae (B) Sawyer Count 25,000-50,000 Streptococcus agalactiae (B): REACTION Ampicillin Islt <=0.25 S Penicillin G Islt <=0.06 S cefTRIAXone Islt <=0.12 S Clindamycin Islt <=0.25 S Clindamycin.induced Susc Islt NEG Linezolid Islt <=2 S Vancomycin Islt 0.5 S Normal [facility] Comment on above: Performed By: #### M 100.2200 #### [facility] [address] [place], [address] Abdomen/Pelvis without Conto n 11-22-2023 Abdomen/Pelvis without Cont [facility] [address] [place] [address] Abdomen/Pelvis without Cont MR#: [id number] Acct: [id number] Name: GERTRUDE LFORES Rep #: [id number] : 1940 F 83 From: Arian Fairchild PCP: Dr. Vanessa Her MD Status: REG ER Study: Abdomen/Pelvis without Cont Date of Exam: 10/25 Exam# [id number] Ordering Dr: Silver Durbin DO [id number] STUDY: CT ABDOMEN AND PELVIS WITHOUT CONTRAST REASON FOR EXAM: Female, 83 years old. right flank pain RADIATION DOSAGE (If Supplied By Facility): CTDIvol = ( 11.18 ) mGy, DLP = ( 597.66 ) mGycm TECHNIQUE: Transaxial images were obtained from the dome of the diaphragm to the symphysis pubis without oral contrast, and without intravenous contrast. Sagittal and coronal images were reconstructed. Individualized dose optimization techniques were used for this CT. The protocol utilizes one or more of the following dose reduction techniques: automated exposure control, adjustment of mA and/or kV according to patient size,and/or use of iterative reconstruction technique. COMPARISON: None. FINDINGS: The visualized lung bases are unremarkable. Calcific coronary artery disease and cardiomegaly. Trace pericardial effusion. Normal liver. Gallbladder surgically absent. Normal spleen. Normal pancreas. Normal bilateral adrenal glands. 25 x 14 mm simple right renal cyst. No further follow-up required as it appears simple/benign. Possible mild right hydronephrosis. Punctate 1 mm ureterolith is noted near the ureterovesicular junction within the bladder. Normal left kidney. Normal visualized stomach. Normal small intestine. Colonic diverticulosis. Appendix not identified. Calcified plaque along the aorta and its branches. Normal inferior vena cava. Normal retroperitoneum. Fat-containing umbilical hernia. Grade [address] L4-5. CT/Abdomen/Pelvis without Cont IMPRESSION: Mild right hydronephrosis due to a 1 mm ureterolith near the UVJ possibly passed within the bladder. Electronically Signed: Arian Hairston MD at 16:55 EDT , CC: Dr. Vanessa Her MD; Dr. Silver Durbin DO Folder Machine Adjuster: Signed Normal [facility] Basic Metabolic Profile (BMP )on 11-22-2023 BUN/CRE 13.6 RATIO Normal 10-20 [facility] Comment on above: Performed By: #### L 500.4050, L501.4020, L100.0100, L501.2450 #### [facility] [address] [place], [address] CA,Total 9.4 mg/dL Normal 8.5-10.1 [facility] Comment on above: Performed By: #### L 500.4050, L501.4020, L100.0100, L501.2450 #### [facility] [address] [place], [address] Chloride [Moles/Vol] 109 mmol/L High 98-107 [facility] Comment on above: Performed By: #### L 500.4050, L501.4020, L100.0100, L501.2450 #### [facility] [address] [place], [address] CO2 [Moles/Vol] 28.0 mmol/L Normal 21.0-32.0 [facility] Comment on above: Performed By: #### L 500.4050, L501.4020, L100.0100, L501.2450 #### [facility] [address] [place], [address] Creatinine [Mass/Vol] 1.10 mg/dL High 0.55-1.02 [facility] Comment on above: Result Comment: The validity of the calculated GFR GFRAA in patients over 70 years has not been determined. Clinical correlation is essential. Performed By: #### L 500.4050, L501.4020, L100.0100, L501.2450 #### [facility] [address] [place], [address] ECRCL 42.75 ml/min Normal [facility] Comment on above: Performed By: #### L 500.4050, L501.4020, L100.0100, L501.2450 #### [facility] [address] [place], [address] EST GFR - AA 61 mL/min Normal >60 [facility] Comment on above: Result Comment: Afri can Thai GFR Calc Performed By: #### L 500.4050, L501.4020, L100.0100, L501.2450 #### [facility] [address] [place], [address] GAP 4 Low 5-15 [facility] Comment on above: Performed By: #### L 500.4050, L501.4020, L100.0100, L501.2450 #### [facility] [address] [place], [address] GFR/1.73 sq M.predicted among non-blacks MDRD (S/P/Bld) [Vol rate/Area] 51 mL/min/{1.73_m2} Low >60 [facility] Comment on above: Result Comment: Non- GFR Calc Performed By: #### L 500.4050, L501.4020, L100.0100, L501.2450 #### [facility] [address] [place], [address] Glucose [Mass/Vol] 117 mg/dL High 74-106 [facility] Comment on above: Result Comment: Fast ing Glucose result from 100 to 125 mg/dL suggests IMPAIRED HOMEOSTASIS per A.D.A. criteria. Performed By: #### L 500.4050, L501.4020, L100.0100, L501.2450 #### [facility] [address] [place], [address] Potassium [Moles/Vol] 3.8 mmol/L Normal 3.5-5.1 [facility] Comment on above: Performed By: #### L 500.4050, L501.4020, L100.0100, L501.2450 #### [facility] [address] [place], [address] Sodium [Moles/Vol] 141 mmol/L Normal 136-145 [facility] Comment on above: Performed By: #### L 500.4050, L501.4020, L100.0100, L501.2450 #### [facility] [address] [place], [address] Urea nitrogen [Mass/Vol] 15 mg/dL Normal 7-18 [facility] Comment on above: Performed By: #### L 500.4050, L501.4020, L100.0100, L501.2450 #### [facility] [address] [place], [address] CBC W/Diff, Automatedon 083 -2023 Absolute Lymph 1.20 X10 3/uL Normal 0.83-4.51 [facility] Comment on above: Performed By: #### L 500.4050, L501.4020, L100.0100, L501.2450 #### [facility] [address] [place], [address] Absolute Neut 9.5 X10 3/uL High 2.0-7.7 [facility] Comment on above: Performed By: #### L 500.4050, L501.4020, L100.0100, L501.2450 #### [facility] [address] [place], [address] Basophils/100 WBC (Bld) 0.6 % Normal 0-1 [facility] Comment on above: Performed By: #### L 500.4050, L501.4020, L100.0100, L501.2450 #### [facility] [address] [place], [address] Eosinophils/100 WBC (Bld) 2.4 % Normal 0-5 [facility] Comment on above: Performed By: #### L 500.4050, L501.4020, L100.0100, L501.2450 #### [facility] [address] [place], [address] Erythrocyte distribution width (RBC) [Ratio] 15.2 % High 11.6-14.6 [facility] Comment on above: Performed By: #### L 500.4050, L501.4020, L100.0100, L501.2450 #### [facility] [address] [place], [address] Hematocrit (Bld) [Volume fraction] 34.6 % Low 37-47 [facility] Comment on above: Performed By: #### L 500.4050, L501.4020, L100.0100, L501.2450 #### [facility] [address] [place], [address] Hemoglobin (Bld) [Mass/Vol] 10.6 g/dL Low 12.0-15.0 [facility] Comment on above: Performed By: #### L 500.4050, L501.4020, L100.0100, L501.2450 #### [facility] [address] [place], [address] IG% 0.600 Normal 0.0-0.9 [facility] Comment on above: Result Comment: IG% - Immature Granulocytes (promyelocytes, myelocytes and metamyelocytes) > 1% indicates that a LEFT SHIFT is Present. Performed By: #### L 500.4050, L501.4020, L100.0100, L501.2450 #### [facility] [address] [place], [address] Lymphocytes/100 WBC (Bld) 9.7 % Low 19-41 [facility] Comment on above: Performed By: #### L 500.4050, L501.4020, L100.0100, L501.2450 #### [facility] [address] [place], [address] MCH (RBC) [Entitic mass] 27.2 pg Normal 27.0-32.0 [facility] Comment on above: Performed By: #### L 500.4050, L501.4020, L100.0100, L501.2450 #### [facility] [address] [place], [address] MCHC (RBC) [Mass/Vol] 30.6 g/dL Low 32-36 [facility] Comment on above: Performed By: #### L 500.4050, L501.4020, L100.0100, L501.2450 #### [facility] [address] [place], [address] MCV (RBC) [Entitic vol] 88.7 fL Normal 81-99 [facility] Comment on above: Performed By: #### L 500.4050, L501.4020, L100.0100, L501.2450 #### [facility] [address] [place], [address] Monocytes/100 WBC (Bld) 10.3 % High 0-10 [facility] Comment on above: Performed By: #### L 500.4050, L501.4020, L100.0100, L501.2450 #### [facility] [address] [place], [address] Neutrophils/100 WBC (Bld) 76.4 % High 47-70 [facility] Comment on above: Performed By: #### L 500.4050, L501.4020, L100.0100, L501.2450 #### [facility] [address] [place], [address] Nucleated RBC (Bld) [#/Vol] 0 10*3/uL Normal 0-5 [facility] Comment on above: Performed By: #### L 500.4050, L501.4020, L100.0100, L501.2450 #### [facility] [address] [place], [address] Platelet mean volume (Bld) [Entitic vol] 10.0 fL Normal 6.2-12.0 [facility] Comment on above: Performed By: #### L 500.4050, L501.4020, L100.0100, L501.2450 #### [facility] [address] [place], [address] Platelets (Bld) [#/Vol] 389 10*3/uL Normal 150-450 [facility] Comment on above: Performed By: #### L 500.4050, L501.4020, L100.0100, L501.2450 #### [facility] [address] [place], [address] RBC (Bld) [#/Vol] 3.90 10*6/uL Low 4.2-5.4 [facility] Comment on above: Performed By: #### L 500.4050, L501.4020, L100.0100, L501.2450 #### [facility] [address] [place], [address] RDW SD 48.7 fl High 35.1-43.9 [facility] Comment on above: Performed By: #### L 500.4050, L501.4020, L100.0100, L501.2450 #### [facility] [address] [place], [address] WBC (Bld) [#/Vol] 12.4 10*3/uL High 4.4-11.0 [facility] Comment on above: Performed By: #### L 500.4050, L501.4020, L100.0100, L501.2450 #### [facility] [address] [place], [address] Chest PA and Lateralon 11-21 Chest PA and Lateral [facility] [address] [place] [address] Chest PA and Lateral MR#: [id number] Acct: [id number] Name: GERTRUDE FLORES Rep #: [id number] : 1940 F 83 From: Arian Fairchild PCP: Dr. Vanessa Her MD Status: [facility] ER Study: Chest PA and Lateral Date of Exam: 11/22/23 Exam# [id number] Ordering Dr: Silver Durbin DO [id number] STUDY: X-RAY CHEST REASON FOR EXAM: Female, 83 years old. cough TECHNIQUE: Frontal and lateral views of the chest. COMPARISON: None. FINDINGS: The lungs are clear and expanded. There is no demonstrated pleural abnormality. Normal size heart. Normal mediastinum and deidra. Normal visualized pulmonary arteries. Normal visualized aortic arch and descending thoracic aorta. Normal visualized thoracic spine. Normal visualized ribs, clavicles, and shoulders. There is no demonstrated abnormality of the visualized soft tissue structures of the upper abdomen. RAD/Chest PA and Lateral IMPRESSION: Normal x-ray examination of the chest. Electronically Signed: Arian Hairston MD at 17:05 EDT , CC: Dr. Vanessa Her MD; Dr. Silver Durbin DO Folder Machine Adjuster: Signed Normal [facility] Emergency Department Summary on 11-22-2023 Emergency Department Summary [facility] Medical Records Department [address] [place] [address] Emergency Department Summary 11/22/23 MR#: [id number] Acct: [id number] Name: GERTRUDE FLORES Rep #: [id number] : 1940 83 From: Silver Ashley PCP: Dr. Vanessa Her MD Status:DEP ER Location: ED HPI History of Present Illness Chief Complaint: Flank Pain Informant: patient and spouse/S.O. Narrative Narrative: History of dementia informant from spouse. 1 PM sitting there resting sudden pain in her right flank. No trauma no pain down the legs. No history of kidney stones. She is brought in by her . Patient denies urinary symptoms. Denies nausea vomiting. Denies fevers. Reports cough since being diagnosed with COVID on and off since , 8 months ago. Patient is baseline per spouse. Prior similar symptoms: No PFSH PFSH Medical History Kidney disease Hypertension Dementia Home Medications ???Medication ???Instructions ???Recorded ???Last Taken ???Type cyanocobalamin (vitamin B-12) 1,000 mcg IM Q30D 12/10/16 Unknown History 1,000 mcg/mL injection solution donepezil 5 mg tablet 5 mg PO QHS 12/10/16 12/10/16 History hydrocortisone acetate 25 mg 25 mg RECTAL BID PRN PRN 12/10/16 12/10/16 History rectal suppository (Anucort-HC) Hemorrhoids ibuprofen 200 mg capsule 200 mg PO Q6H PRN PRN Pain 12/10/16 Unknown History levothyroxine 112 mcg tablet 112 mcg PO DAILY 12/10/16 12/10/16 History metoprolol succinate 50 mg 25 mg PO DAILY 12/10/16 12/10/16 History tablet,extended release 24 hr (Toprol XL) cefdinir 300 mg capsule 300 mg PO Q12H #14 caps 11/22/23 Unknown Rx Allergy/AdvReac Type Severity Reaction Status Date / Time estrogens, conjugated (From Allergy Itching Verified 11/22/23 14:16 Premarin) medroxyprogesterone Allergy Unknown Verified 11/22/23 14:16 nitrofurantoin (From Allergy Itching Verified 11/22/23 14:16 Furadantin) sulfamethoxazole (From Allergy Swelling Verified 11/22/23 14:16 Bactrim) trimethoprim (From Bactrim) Allergy Swelling Verified 11/22/23 14:16 Social History Smoking Status: Former smoker ROS ROS ED Constitutional Constitutional ED: Denies chills, fever(s) or sweats Eyes Eyes: Denies change in vision ENT ENT ED: Denies dysphagia or sore throat Cardiovascular Cardiovascular: Denies chest pain, leg edema, palpitations or racing heartbeat Respiratory/Chest Respiratory/Chest: Reports cough; Denies dyspnea or dyspnea on exertion Gastrointestinal Gastrointestinal: Denies abdominal pain, diarrhea, nausea or vomiting Genitourinary Genitourinary ED: Denies dysuria, hematuria or urinary frequency Musculoskeletal Musculoskeletal: Reports back pain; Denies extremity pain or neck pain Integumentary Denies rash or wounds Neurologic Neurologic: Denies headache(s), paresthesias or weakness EXAM Physical Exam Const Vital Signs: 11/22/23 14:16 11/22/23 16:16 11/22/23 18:00 Temperature 97.6 F L Temperature Source Temporal Pulse Rate 62 81 84 Respiratory Rate 22 H 18 18 Blood Pressure 160/75 H 144/86 H 132/76 H Blood Pressure Mean 103 105 94 Pulse Ox 98 98 98 Oxygen Delivery Method Room Air Room Air Room Air 11/22/23 18:27 Temperature 97.1 F L Temperature Source Pulse Rate 84 Respiratory Rate 18 Blood Pressure 132/76 H Blood Pressure Mean 94 Pulse Ox 98 Oxygen Delivery Method Positive well nourished and well developed Constitutional Narrative: Nontoxic General Appearance ED: well developed and NAD HEENT Reports moist mucous membranes normocephalic and atraumatic Eyes EOMs intact bilaterally and conjunctivae normal General Eye ED: Yes normal appearance of both eyes Neck no lymphadenopathy and supple General: Negative for tenderness Chest Wall Chest: Negative for tenderness Resp normal respiratory effort and normal air movement Effort and Inspection: symmetric chest movement; Negative for respiratory distress Cardio regular rate, regular rhythm and no murmurs Peripheral Pulses: pulses 2+ throughout GI normal to inspection, nondistended, normoactive bowel sounds and non-tender Palpation: Negative for guarding or rebound tenderness present Back/Spine no CVA tenderness and no thoracic nor lumbar tenderness Back/Spine Narrative: No rash in the back region. Extremity normal to inspection General Extremety ED: Negative for edema or tenderness General Extremity: Negative for edema Neuro no sensory deficits noted Neuro Narrative: Alert to person. Unaware of place or time. This is baseline per spouse. Sensorium / Orientation: awake and alert Skin no rashes or lesions noted and no wounds MDM (more content not included)... Normal [facility] Urinalysis, Completeon 11-21 AMORPHOUS 1+ Normal [facility] Comment on above: Order Comment: 'TROP ' Serial specimen #1, #2 or #3: 1 Performed By: #### L 500.4050, L501.4020, L100.0100, L501.2450 #### [facility] [address] [place], [address] BACTERIA 1+ /hpf Normal None Seen [facility] Comment on above: Order Comment: 'TROP ' Serial specimen #1, #2 or #3: 1 Performed By: #### L 500.4050, L501.4020, L100.0100, L501.2450 #### [facility] [address] [place], [address] EPI,RENAL 0-5 SEEN Normal 0-5 [facility] Comment on above: Order Comment: 'TROP ' Serial specimen #1, #2 or #3: 1 Performed By: #### L 500.4050, L501.4020, L100.0100, L501.2450 #### [facility] [address] [place], [address] Mucus Ql (Urine sed) 1+ /hpf Normal [facility] Comment on above: Order Comment: 'TROP ' Serial specimen #1, #2 or #3: 1 Performed By: #### L 500.4050, L501.4020, L100.0100, L501.2450 #### [facility] [address] [place], [address] RBC 10-25 SEEN Normal 0-5 [facility] Comment on above: Order Comment: 'TROP ' Serial specimen #1, #2 or #3: 1 Performed By: #### L 500.4050, L501.4020, L100.0100, L501.2450 #### [facility] [address] [place], [address] WBC 50-100 SEEN Normal 0-5 [facility] Comment on above: Order Comment: 'TROP ' Serial specimen #1, #2 or #3: 1 Performed By: #### L 500.4050, L501.4020, L100.0100, L501.2450 #### [facility] [address] [place], [address] EPI,SQUAMOUS 25-50 SEEN Normal 5-10 [facility] Comment on above: Order Comment: 'TROP ' Serial specimen #1, #2 or #3: 1 Performed By: #### L 500.4050, L501.4020, L100.0100, L501.2450 #### [facility] [address] [place], [address] FERRITINon 11-11-2023 Ferritin [Mass/Vol] 184.0 ng/mL 14.7 - 2 05.1 ng/mL [facility] Ferritin [Mass/Vol]on 2023 Interpretation and review of laboratory results Normal [facility] HAPTOGLOBINon 11-11-2023 Haptoglobin [Mass/Vol] 319 mg/dL High 31 - 238 mg/dL [facility] Iron and Iron binding capaci ty panelon 11-11-2023 Iron [Mass/Vol] 29 ug/dL Low 41 - 186 ug/dL [facility] Iron binding capacity [Mass/Vol] 300 ug/dL 232 - 386 ug/dL [facility] Iron/TIBC [Molar ratio] 9.7 % Low 15.0 - 57.0 % [facility] LACTATE DEHYDROGENASEOrdered By: Donna Herrera on 11-11-2023 LDH [Catalytic activity/Vol] 202 U/L 135 - 214 U/L [facility] LDH [Catalytic activity/Vol] Ordered By: Donna Herrera on 11-11-2023 Interpretation and review of laboratory results Normal [facility] No Panel Informationon 11-10 Interpretation and review of laboratory results Abnormal [facility] RETICULOCYTE COUNTon 024 Reticulocytes (Bld) [#/Vol] 0.085 10*3/uL [facility] Reticulocytes (Bld) [#/Vol]o n 11-11-2023 Interpretation and review of laboratory results Abnormal [facility] Reticulocytes/100 RBC (Bld) 2.3 % High 0.4 - 2.0 % [facility] CBC W Auto Differential pane l (Bld)on 10-24-2023 Basophils (Bld) [#/Vol] 0.07 10*3/uL [facility] Basophils/100 WBC (Bld) 0.6 % C [facility] Differential cell count method Nom (Bld) Auto [facility] Eosinophils (Bld) [#/Vol] 0.19 10*3/uL [facility] Eosinophils/100 WBC (Bld) 1.7 % [facility] Erythrocyte distribution width (RBC) [Ratio] 13.7 % 11.5 - 15.0 % [facility] Hematocrit (Bld) [Volume fraction] 34.3 % Low 36.0 - 46.0 % [facility] Hemoglobin (Bld) [Mass/Vol] 10.9 g/dL Low 11.5 - 15.5 g/dL [facility] Immature granulocytes (Bld) [#/Vol] 0.07 10*3/uL [facility] Immature granulocytes/100 WBC (Bld) 0.6 % [facility] Interpretation and review of laboratory results Abnormal [facility] Lymphocytes (Bld) [#/Vol] 0.88 10*3/uL Low [facility] Lymphocytes/100 WBC (Bld) 7.7 % [facility] MCH (RBC) [Entitic mass] 29.3 pg 26. 0 - 34.0 pg [facility] MCHC (RBC) [Mass/Vol] 31.8 g/dL 30.5 - 36.0 g/dL [facility] MCV (RBC) [Entitic vol] 92.2 fL 80.0 - 100.0 fL [facility] Monocytes (Bld) [#/Vol] 0.84 10*3/uL [facility] Monocytes/100 WBC (Bld) 7.4 % [facility] Neutrophils (Bld) [#/Vol] 9.35 10*3/uL High [facility] Neutrophils/100 WBC (Bld) 82.0 % [facility] Nucleated RBC (Bld) [#/Vol] [facility] Nucleated RBC/100 WBC (Bld) [Ratio] 0.0 % /100 WBC [facility] Platelet mean volume (Bld) [Entitic vol] 10.7 fL 9.0 - 12.7 fL [facility] Platelets (Bld) [#/Vol] 369 10*3/uL [facility] RBC (Bld) [#/Vol] 3.72 10*6/uL Low 3.90 - 5.2 0 m/uL [facility] WBC (Bld) [#/Vol] 11.40 10*3/uL [facility] Abdomen/Pelvis W IV Cont ONL Yon 08-19-2023 Abdomen/Pelvis W IV Cont ONLY [facility] [address] [place] [address] Abdomen/Pelvis W IV Cont ONLY MR#: [id number] Acct: [id number] Name: GERTRUDE FLORES Rep #: [id number] : 1940 F 83 From: Stan lagos MD PCP: Dr. Vanessa Her MD Status: REG ER Study: Abdomen/Pelvis W IV Cont ONLY Date of Exam: Exam# [id number] Ordering Dr: Fabio Orozco MD [id number] EXAM: CT ABDOMEN AND PELVIS WITH INTRAVENOUS CONTRAST CLINICAL INDICATION: Abdominal Pain TECHNIQUE: Helically acquired images were obtained of the abdomen and pelvis with intravenous contrast. This CT exam was performed using one or more of the following dose reduction techniques: automated exposure control, adjustment of the mA and/or kV according to patient size, and/or use of iterative reconstruction technique. CONTRAST: IV 100mL Isovue-370 RADIATION DOSE: CTDIvol = 15.92 mGy, DLP = 753.38 mGy-cm COMPARISON: No relevant prior studies available. FINDINGS: LOWER THORAX: Unremarkable. Lung bases are clear. No cardiomegaly. No significant pericardial effusion. ABDOMEN: LIVER: Unremarkable. Homogeneous. No focal mass. GALLBLADDER AND BILE DUCTS: Cholecystectomy. No intra- or extrahepatic biliary ductal dilation. PANCREAS: Unremarkable. No focal cystic or solid mass. SPLEEN: Unremarkable. Normal size without focal cystic or solid mass. ADRENALS: Unremarkable. No nodules. KIDNEYS AND URETERS: No acute renal abnormalities. Bilateral simple renal cysts. Normal renal size and position. No hydronephrosis. STOMACH AND BOWEL: Evaluation of the GI tract is limited by absence of oral contrast. Cannot exclude stomach wall thickening. No dilated loops of bowel or evidence for obstruction. Cannot exclude segmental thickening of the rojo of the small or large bowel. Cannot exclude enteritis or colitis. Moderate diffuse fecal retention. Diverticulosis without definite diverticulitis. Appendix within normal limits. PELVIS: APPENDIX: No evidence of acute appendicitis. BLADDER: Unremarkable. REPRODUCTIVE: Absent uterus. ABDOMEN and PELVIS: INTRAPERITONEAL SPACE: Unremarkable. No ascites or other fluid collection. No free air. BONES/JOINTS: Degenerative changes throughout the spine. No suspicious lytic or blastic abnormality. SOFT TISSUES: Unremarkable. No discrete abdominal or pelvic wall hernia. VASCULATURE: Tortuous calcified aorta and iliac arteries with no aneurysm. LYMPH NODES: Unremarkable. No enlarged lymph nodes. CT/Abdomen/Pelvis W IV Cont ONLY IMPRESSION: No definite acute or significant abnormality seen. Electronically Signed: Stan Baca MD at 19:57 EDT , CC: Dr. Fabio Orozco MD; Dr. Vanessa Her MD Folder Machine Adjuster: Signed Normal [facility] CBC W/Diff, Automatedon 05- Absolute Lymph 1.88 X10 3/uL Normal 0.83-4.51 [facility] Comment on above: Performed By: #### L 500.4050, L501.4020, L100.0100, L501.2450 #### [facility] [address] [place], [address] Absolute Neut 4.2 X10 3/uL Normal 2.0-7.7 [facility] Comment on above: Performed By: #### L 500.4050, L501.4020, L100.0100, L501.2450 #### [facility] [address] [place], [address] Basophils/100 WBC (Bld) 0.8 % Normal 0-1 [facility] Comment on above: Performed By: #### L 500.4050, L501.4020, L100.0100, L501.2450 #### [facility] [address] [place], [address] Eosinophils/100 WBC (Bld) 3.6 % Normal 0-5 [facility] Comment on above: Performed By: #### L 500.4050, L501.4020, L100.0100, L501.2450 #### [facility] [address] [place], [address] Erythrocyte distribution width (RBC) [Ratio] 12.7 % Normal 11.6-14.6 [facility] Comment on above: Performed By: #### L 500.4050, L501.4020, L100.0100, L501.2450 #### [facility] [address] [place], [address] Hematocrit (Bld) [Volume fraction] 40.3 % Normal 37-47 [facility] Comment on above: Performed By: #### L 500.4050, L501.4020, L100.0100, L501.2450 #### [facility] [address] [place], [address] Hemoglobin (Bld) [Mass/Vol] 12.9 g/dL Normal 12.0-15.0 [facility] Comment on above: Performed By: #### L 500.4050, L501.4020, L100.0100, L501.2450 #### [facility] [address] [place], [address] IG% 0.300 Normal 0.0-0.9 [facility] Comment on above: Result Comment: IG% - Immature Granulocytes (promyelocytes, myelocytes and metamyelocytes) > 1% indicates that a LEFT SHIFT is Present. Performed By: #### L 500.4050, L501.4020, L100.0100, L501.2450 #### [facility] [address] [place], [address] Lymphocytes/100 WBC (Bld) 26.2 % Normal 19-41 [facility] Comment on above: Performed By: #### L 500.4050, L501.4020, L100.0100, L501.2450 #### [facility] [address] [place], [address] MCH (RBC) [Entitic mass] 28.8 pg Normal 27.0-32.0 [facility] Comment on above: Performed By: #### L 500.4050, L501.4020, L100.0100, L501.2450 #### [facility] [address] [place], [address] MCHC (RBC) [Mass/Vol] 32.0 g/dL Normal 32-36 [facility] Comment on above: Performed By: #### L 500.4050, L501.4020, L100.0100, L501.2450 #### [facility] [address] [place], [address] MCV (RBC) [Entitic vol] 90.0 fL Normal 81-99 [facility] Comment on above: Performed By: #### L 500.4050, L501.4020, L100.0100, L501.2450 #### [facility] [address] [place], [address] Monocytes/100 WBC (Bld) 10.2 % High 0-10 [facility] Comment on above: Performed By: #### L 500.4050, L501.4020, L100.0100, L501.2450 #### [facility] [address] [place], [address] Neutrophils/100 WBC (Bld) 58.9 % Normal 47-70 [facility] Comment on above: Performed By: #### L 500.4050, L501.4020, L100.0100, L501.2450 #### [facility] [address] [place], [address] Nucleated RBC (Bld) [#/Vol] 0 10*3/uL Normal 0-5 [facility] Comment on above: Performed By: #### L 500.4050, L501.4020, L100.0100, L501.2450 #### [facility] [address] [place], [address] Platelet mean volume (Bld) [Entitic vol] 10.4 fL Normal 6.2-12.0 [facility] Comment on above: Performed By: #### L 500.4050, L501.4020, L100.0100, L501.2450 #### [facility] [address] [place], [address] Platelets (Bld) [#/Vol] 249 10*3/uL Normal 150-450 [facility] Comment on above: Performed By: #### L 500.4050, L501.4020, L100.0100, L501.2450 #### [facility] [address] [place], [address] RBC (Bld) [#/Vol] 4.48 10*6/uL Normal 4.2-5.4 [facility] Comment on above: Performed By: #### L 500.4050, L501.4020, L100.0100, L501.2450 #### [facility] [address] [place], [address] RDW SD 42.2 fl Normal 35.1-43.9 [facility] Comment on above: Performed By: #### L 500.4050, L501.4020, L100.0100, L501.2450 #### [facility] [address] [place], [address] WBC (Bld) [#/Vol] 7.2 10*3/uL Normal 4.4-11.0 [facility] Comment on above: Performed By: #### L 500.4050, L501.4020, L100.0100, L501.2450 #### [facility] [address] [place], [address] Comprehensive Metabolic Prof [facility] 08-19-2023 Albumin [Mass/Vol] 3.6 g/dL Normal 3.2-5.0 [facility] Comment on above: Order Comment: 'TROP ' Serial specimen #1, #2 or #3: 1 Performed By: #### L 500.4050, L501.4020, L100.0100, L501.2450 #### [facility] [address] [place], [address] Albumin/Globulin [Mass ratio] 1.0 {ratio} Normal 0.9-2.4 [facility] Comment on above: Order Comment: 'TROP ' Serial specimen #1, #2 or #3: 1 Performed By: #### L 500.4050, L501.4020, L100.0100, L501.2450 #### [facility] [address] [place], [address] ALK P 73 U/L Normal 45-117 [facility] Comment on above: Order Comment: 'TROP ' Serial specimen #1, #2 or #3: 1 Performed By: #### L 500.4050, L501.4020, L100.0100, L501.2450 #### [facility] [address] [place], [address] ALT [Catalytic activity/Vol] 13 U/L Normal 13-56 [facility] Comment on above: Order Comment: 'TROP ' Serial specimen #1, #2 or #3: 1 Performed By: #### L 500.4050, L501.4020, L100.0100, L501.2450 #### [facility] [address] [place], [address] AST [Catalytic activity/Vol] 12 U/L Low 15-37 [facility] Comment on above: Order Comment: 'TROP ' Serial specimen #1, #2 or #3: 1 Performed By: #### L 500.4050, L501.4020, L100.0100, L501.2450 #### [facility] [address] [place], [address] Bilirubin [Mass/Vol] 0.50 mg/dL Normal 0.20-1.00 [facility] Comment on above: Order Comment: 'TROP ' Serial specimen #1, #2 or #3: 1 Result Comment: For patients on eltrombopag therapy, use of Dimension [place] TBIL is not recommended. Performed By: #### L 500.4050, L501.4020, L100.0100, L501.2450 #### [facility] [address] [place], [address] BUN/CRE 18.9 RATIO Normal 10-20 [facility] Comment on above: Order Comment: 'TROP ' Serial specimen #1, #2 or #3: 1 Performed By: #### L 500.4050, L501.4020, L100.0100, L501.2450 #### [facility] [address] [place], [address] CA,Total 10.2 mg/dL High 8.5-10.1 [facility] Comment on above: Order Comment: 'TROP ' Serial specimen #1, #2 or #3: 1 Performed By: #### L 500.4050, L501.4020, L100.0100, L501.2450 #### [facility] [address] [place], [address] Chloride [Moles/Vol] 106 mmol/L Normal 98-107 [facility] Comment on above: Order Comment: 'TROP ' Serial specimen #1, #2 or #3: 1 Performed By: #### L 500.4050, L501.4020, L100.0100, L501.2450 #### [facility] [address] [place], [address] CO2 [Moles/Vol] 27.0 mmol/L Normal 21.0-32.0 [facility] Comment on above: Order Comment: 'TROP ' Serial specimen #1, #2 or #3: 1 Performed By: #### L 500.4050, L501.4020, L100.0100, L501.2450 #### [facility] [address] [place], [address] Creatinine [Mass/Vol] 1.06 mg/dL High 0.55-1.02 [facility] Comment on above: Order Comment: 'TROP ' Serial specimen #1, #2 or #3: 1 Result Comment: The validity of the calculated GFR GFRAA in patients over 70 years has not been determined. Clinical correlation is essential. Performed By: #### L 500.4050, L501.4020, L100.0100, L501.2450 #### [facility] [address] [place], [address] ECRCL 43.48 ml/min Normal [facility] Comment on above: Order Comment: 'TROP ' Serial specimen #1, #2 or #3: 1 Performed By: #### L 500.4050, L501.4020, L100.0100, L501.2450 #### [facility] [address] [place], [address] EST GFR - AA 64 mL/min Normal >60 [facility] Comment on above: Order Comment: 'TROP ' Serial specimen #1, #2 or #3: 1 Result Comment: Afri can Thai GFR Calc Performed By: #### L 500.4050, L501.4020, L100.0100, L501.2450 #### [facility] [address] [place], [address] GAP 7 Normal 5-15 [facility] Comment on above: Order Comment: 'TROP ' Serial specimen #1, #2 or #3: 1 Performed By: #### L 500.4050, L501.4020, L100.0100, L501.2450 #### [facility] [address] [place], [address] GFR/1.73 sq M.predicted among non-blacks MDRD (S/P/Bld) [Vol rate/Area] 53 mL/min/{1.73_m2} Low >60 [facility] Comment on above: Order Comment: 'TROP ' Serial specimen #1, #2 or #3: 1 Result Comment: Non- GFR Calc Performed By: #### L 500.4050, L501.4020, L100.0100, L501.2450 #### [facility] [address] [place], [address] Globulin (S) [Mass/Vol] 3.5 g/dL Normal 2.2-4.2 [facility] Comment on above: Order Comment: 'TROP ' Serial specimen #1, #2 or #3: 1 Performed By: #### L 500.4050, L501.4020, L100.0100, L501.2450 #### [facility] [address] [place], [address] Glucose [Mass/Vol] 105 mg/dL Normal 74-106 [facility] Comment on above: Order Comment: 'TROP ' Serial specimen #1, #2 or #3: 1 Result Comment: Fast ing Glucose result from 100 to 125 mg/dL suggests IMPAIRED HOMEOSTASIS per A.D.A. criteria. Performed By: #### L 500.4050, L501.4020, L100.0100, L501.2450 #### [facility] [address] [place], [address] Potassium [Moles/Vol] 3.9 mmol/L Normal 3.5-5.1 [facility] Comment on above: Order Comment: 'TROP ' Serial specimen #1, #2 or #3: 1 Performed By: #### L 500.4050, L501.4020, L100.0100, L501.2450 #### [facility] [address] [place], [address] Sodium [Moles/Vol] 140 mmol/L Normal 136-145 [facility] Comment on above: Order Comment: 'TROP ' Serial specimen #1, #2 or #3: 1 Performed By: #### L 500.4050, L501.4020, L100.0100, L501.2450 #### [facility] [address] [place], [address] T PROT 7.1 g/dL Normal 6.4-8.2 [facility] Comment on above: Order Comment: 'TROP ' Serial specimen #1, #2 or #3: 1 Performed By: #### L 500.4050, L501.4020, L100.0100, L501.2450 #### [facility] [address] [place], [address] Urea nitrogen [Mass/Vol] 20 mg/dL High 7-18 [facility] Comment on above: Order Comment: 'TROP ' Serial specimen #1, #2 or #3: 1 Performed By: #### L 500.4050, L501.4020, L100.0100, L501.2450 #### [facility] [address] [place], [address] Emergency Department Summary on 08-19-2023 Emergency Department Summary [facility] Medical Records Department [address] [place] [address] Emergency Department Summary 08/19/23 MR#: [id number] Acct: [id number] Name: GERTRUDE FLORES Rep #: [id number] : 1940 83 From: Fabio Orozco MD PCP: Dr. Vanessa Her MD Status:REG ER Location: ED HPI HPI - GI History of Present Illness Chief Complaint: Abd Pain Narrative Narrative: History and physical limited secondary to dementia. 83 year old female presents to the ED with her for abdominal pain that she has had intermittently for the last 2 weeks. It has become more constant over the last few days. She has not had fever or chills, but reports she had one episode of vomiting bile yesterday. Today, she had 2 episodes of severe pain. They lasted 30-45 minutes each. Last normal bowel movement was today. No exacerbating or alleviating factors. Past abdominal surgery includes cholecystectomy. [facility] Medical History Kidney disease Hypertension Dementia Home Medications ???Medication ???Instructions ???Recorded ???Last Taken ???Type cyanocobalamin (vitamin B-12) 1,000 mcg IM Q30D 12/10/16 Unknown History 1,000 mcg/mL injection solution donepezil 5 mg tablet 5 mg PO QHS 12/10/16 12/10/16 History hydrocortisone acetate 25 mg 25 mg RECTAL BID PRN PRN 12/10/16 12/10/16 History rectal suppository (Anucort-HC) Hemorrhoids ibuprofen 200 mg capsule 200 mg PO Q6H PRN PRN Pain 12/10/16 Unknown History levothyroxine 112 mcg tablet 112 mcg PO DAILY 12/10/16 12/10/16 History metoprolol succinate 50 mg 25 mg PO DAILY 12/10/16 12/10/16 History tablet,extended release 24 hr (Toprol XL) Allergy/AdvReac Type Severity Reaction Status Date / Time estrogens, conjugated (From Allergy Itching Verified 06/11/21 12:17 Premarin) medroxyprogesterone Allergy Unknown Verified 06/11/21 12:17 nitrofurantoin (From Allergy Itching Verified 06/11/21 12:17 Furadantin) sulfamethoxazole (From Allergy Swelling Verified 06/11/21 12:17 Bactrim) trimethoprim (From Bactrim) Allergy Swelling Verified 06/11/21 12:17 Surgical History no surgical history no surgical history (Prior Cholecystectomy) Social History Smoking Status: Former smoker ROS ROS ED ROS Narrative No fevers or chills, no chest pain or shortness of breath. 1 episode of nausea and vomiting, bilious. No problems with bowel movements, no diarrhea. Positive epigastric to periumbilical pain. EXAM Physical Exam Narrative Exam Narrative: Afebrile. Vital signs noted. Nontoxic appearing. Regular rate and rhythm. Lungs clear to auscultation bilaterally. Abdomen soft with normoactive bowelsounds. Neurological exam nonfocal and non lateralizing. Consistent with dementia. Const Vital Signs: 08/19/23 14:56 08/19/23 16:56 08/19/23 18:00 Temperature 96 F L Temperature Source Temporal Pulse Rate 77 75 64 Respiratory Rate 16 16 16 Blood Pressure 139/81 H 128/79 H 161/78 H Blood Pressure Mean 100 95 105 Pulse Ox 97 97 98 Oxygen Delivery Method Room Air Room Air Room Air MDM MDM MDM Narrative Medical decision making narrative: Concern is for intrabominal pathology including pancreatitis versus partial small bowel obstruction versus gastroenteritis vs incarcerated hernia. Comprehensive workup was pursued. Patient declined analgesics or antiemetics as her pain has improved from earlier today. I reviewed the laboratory work from today and she has normal white count of 7.2, hemoglobin 12.9, hematocrit 40.3, platelet count normal at 249. CMP is remarkable for a BUN of 20 and creatinine 1.06, AST low at 12 with ALT 13 and alk phos normal at 73. Lipase is normal at 62 so I doubt pancreatitis. Urinalysis is negative for ketones, negative for infection. I do not feel antibiotics are indicated. There was a delay in the CT read secondary to IT issues. Her CT has returned and there is no acute process, no obstruction, she does have diffuse stool throughout the colon. At this point in time, I do not feel she requires hospitalization or emergent surgery consultation. She has gotten dressed and is ready to leave because she wants to be discharged. She stated on reexamination that she feels well. I do think that some of her pain may have been from hospital shuttling. I feel she can be discharged safely home with follow-up. She will start [id number] MiraLAX and stool softeners. Follow-up with her primary care provider. Return instructions were reviewed. Disposition is discharged home in stable condition. History Record Review Discussion w/independent historian: Patient and Family () Lab Data Attestation: I reviewed the patient's lab results. Labs: (more content not included)... Normal [facility] L501.4020on 08-19-2023 TROPONIN-I HS 7 pg/mL Normal 3.0-54.0 [facility] Comment on above: Order Comment: 'TROP ' Serial specimen #1, #2 or #3: 1 Result Comment: Plea se Note: New Test Units and Gender Specific Reference Ranges. For more information see Policy Stat Procedure [place] High Sensitivity Troponin (TNIH) and attachments. Performed By: #### L 500.4050, L501.4020, L100.0100, L501.2450 #### [facility] [address] [place], [address] Lipaseon 08-19-2023 Lipase [Catalytic activity/Vol] 62 U/L Normal 13-75 [facility] Comment on above: Order Comment: 'TROP ' Serial specimen #1, #2 or #3: 1 Result Comment: Demond kramer note: LIPASE revised reference range effective 22. New Lipase methodology. Expected to produce lower values than the previous assay method. NEW Reference Range: 13 - 75 U/L Performed By: #### L 500.4050, L501.4020, L100.0100, L501.2450 #### [facility] [address] [place], [address] Urinalysis, Completeon 08-18 RBC 0-5 SEEN Normal 0-5 [facility] Comment on above: Order Comment: 'TROP ' Serial specimen #1, #2 or #3: 1 Performed By: #### L 500.4050, L501.4020, L100.0100, L501.2450 #### [facility] [address] [place], [address] WBC 0-5 SEEN Normal 0-5 [facility] Comment on above: Order Comment: 'TROP ' Serial specimen #1, #2 or #3: 1 Performed By: #### L 500.4050, L501.4020, L100.0100, L501.2450 #### [facility] [address] [place], [address] BACTERIA 0 SEEN Normal None Seen [facility] Comment on above: Order Comment: 'TROP ' Serial specimen #1, #2 or #3: 1 Performed By: #### L 500.4050, L501.4020, L100.0100, L501.2450 #### [facility] [address] [place], [address] EPI,SQUAMOUS 0 SEEN Normal 5-10 [facility] Comment on above: Order Comment: 'TROP ' Serial specimen #1, #2 or #3: 1 Performed By: #### L 500.4050, L501.4020, L100.0100, L501.2450 #### [facility] [address] [place], [address] Mucus Ql (Urine sed) 0 SEEN Normal [facility] Comment on above: Order Comment: 'TROP ' Serial specimen #1, #2 or #3: 1 Performed By: #### L 500.4050, L501.4020, L100.0100, L501.2450 #### [facility] [address] [place], [address] EKGon 03-08-2023 Electrocardiogram Ventricular Rate : 6 2 BPM Atrial Rate : 62 BPM P-R Interval : 168 ms QRS Duration : 98 ms Q-T Interval : 412 ms QTC Calculation(Bazett) : 418 ms Calculated P [place] : 85 degrees Calculated R [place] : 35 degrees Calculated T [place] : 40 degrees SINUS RHYTHM WITH MARKED SINUS ARRHYTHMIA OTHERWISE NORMAL ECG NO PREVIOUS ECGS AVAILABLE Confirmed by MD CROCKER GREGORY () on 03/12/2023 3:28:36 PM NAME : GERTRUDE FLORES PID : [id number] : 1940 Gender : Female Race : ORD : Procedure Date : Mar 07 2023 22:35:36 Edit Date : Mar 12 2023 15:28:42 Diagnosis: SINUS RHYTHM WITH MARKED SINUS ARRHYTHMIA OTHERWISE NORMAL ECG NO PREVIOUS ECGS AVAILABLE Confirmed by MD CROCKER GREGORY () on 03/12/2023 3:28:36 PM Test Reason : Location : [address] [place] [address] Overread By : MD CROCKER GREGORY Edited By : MD CROCKER GREGORY Referred By : , Acquired by : Rozina Luis, [facility] 03-07-2023 OV Office Visit (CARMED ) GERTRUDE FLORES ([id number]) 1940 F Date Time Provider Department 03/07/23 10:20 AM ROSSY CROCKER REMI During your visit today, we recorded the following information about you: Pulse Blood pressure Weight Height 62/minute 128/82 76.7 kg 1.676 m Rossy Crocker, DO 03/07/2023 2:03 PM Signed [facility] OUTPATIENT VISIT DATE March 07, 2023 PRIMARY CARE PHYSICIAN: Vanessa Her [address] [place] [address] HISTORY OF PRESENT ILLNESS: Ms. Flores is a 82 year old female. The patient returns for follow-up due to history of symptomatic PVCs with a negative cardiac workup as well as history of hypertension, hyperlipidemia, early dementia and hypothyroidism. She denies chest discomfort, dyspnea, orthopnea, paroxysmal nocturnal dyspnea, palpitations, near-syncope or syncope. Her who is also a patient accompanies her today. PLAN AND RECOMMENDATIONS: The patient remained stable without symptoms that would suggest angina or cardiac decompensation. On Toprol she does not feel her PVCs. Heart rate, blood pressure recent cholesterol profile are favorable. We have therefore made no additions or changes. Dietary and lifestyle modification was reemphasized to facilitate risk factor reduction. Will look forward to reevaluating her in 1 years time. Vitals: BP 128/82 Pulse 62 Ht 167.6 cm (5' 6) Wt 76.7 kg (169 lb) SpO2 97% BMI 27.28 kg/m? Physical Exam Vitals reviewed. Constitutional: General: She is not in acute distress. Appearance: Normal appearance. She is well-developed. HENT: Head: Normocephalic and atraumatic. Nose: Nose normal. Eyes: General: No scleral icterus. Right eye: No discharge. Left eye: No discharge. Pupils: Pupils are equal, round, and reactive to light. Neck: Thyroid: No thyromegaly. Vascular: No carotid bruit or JVD. Cardiovascular: Rate and Rhythm: Normal rate and regular rhythm. Heart sounds: Normal heart sounds. No murmur heard. No friction rub. No gallop. Pulmonary: Effort: Pulmonary effort is normal. No respiratory distress. Breath sounds: Normal breath sounds. No wheezing or rales. Abdominal: General: Bowel sounds are normal. Palpations: Abdomen is soft. Musculoskeletal: General: Normal range of motion. Cervical back: Normal range of motion and neck supple. Skin: General: Skin is warm and dry. Capillary Refill: Capillary refill takes less than 2 seconds. Coloration: Skin is not pale. Neurological: Mental Status: She is alert and oriented to person, place, and time. Cranial Nerves: No cranial nerve deficit. Psychiatric: Behavior: Behavior normal. Thought Content: Thought content normal. Judgment: Judgment normal. Review of Systems Constitutional: Negative for activity change and fatigue. HENT: Negative for ear pain and facial swelling. Eyes: Negative for pain and discharge. Respiratory: Negative for chest tightness and shortness of breath. Cardiovascular: Negative for chest pain, palpitations and leg swelling. Gastrointestinal: Negative for abdominal pain, blood in stool, nausea and vomiting. Endocrine: Negative for cold intolerance and heat intolerance. Genitourinary: Negative for frequency and hematuria. Musculoskeletal: Negative for arthralgias and gait problem. Skin: Negative for color change, pallor and rash. Allergic/Immunologic: Negative for immunocompromised state. Neurological: Negative for dizziness, syncope, light-headedness and headaches. Hematological: Negative for adenopathy. Does not bruise/bleed easily. Psychiatric/Behaviora l: Negative for confusion. The patient is not nervous/anxious. 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 colon polyps Dementia without behavioral disturbance (HCC) Diverticulitis of colon with hemorrhage Esophageal reflux GERD Hemorrhage of gastrointestinal tract, unspecified 05/23/2001 Internal hemorrhoids without mention of complication 05/23/2001 Unspecified essential hypertension PAST SURGICAL HISTORY Procedure Laterality Date COLONOSCOPY 01/08/2017 COLONOSCOPY FLX DX W/COLLJ SPEC WHEN PFRMD ,05/24 Colonoscopy COLONOSCOPY FLX DX W/COLLJ SPEC WHEN PFRMD 08/23/2006 diverticulosis LAPAROSCOPY SURG CHOLECYSTECTOMY 2002 Cholecystectomy, lap PAST SURGICAL HISTORY OF 01/2007 left knee meniscus repair SALPINGO-OOPHORECTOMY COMPL/PRTL UNI/BI SPX Salpingo-oophorectomy b/l TOTAL ABDOMINAL HYSTERECT W/WO RMVL TUBE OVARY Hysterectomy, SHEN Social History Tobacco Use Smoking status: Former Types: Cigarettes Quit date: 1998 Years since quittin.9 Smokeless tobacco: Never Vaping Use Vaping Use (more content not included)... Normal [facility] US EXT MASS/FLUID COLLECTION LTon 10-18-2022 US EXT MASS/FLUID COLLECTION LT * * *Final Report* * * DATE OF EXAM: Oct 18 2022 9:18AM LDU 1024 - US EXT MASS/FLUID COLLECTION LT / PROCEDURE REASON: Mass of soft tissue of left upper extremity * * * * Physician Interpretation * * * * EXAM TITLE: US EXT MASS/FLUID COLLECTION LT DATE: 10/18/2022 INDICATION: Palpable lump in the region of the left biceps. Approximately 5 cm above the elbow. COMPARISON: None. All images are captured and stored in a permanent archive. Sonographic imaging over site of palpable abnormality reveals a 2.9 x 2.9 x 1.0 cm homogeneously hypoechoic nodule in the subcutaneous fat with similar echogenicity to the adjacent fat. IMPRESSION: Homogeneous soft tissue mass at site of patient's complaint of abnormality. Top consideration is a lipoma. Other soft tissue mass lesions or not completely excluded but felt less likely. Correlate clinically. Folder Machine Adjuster: COOPER Transcribe Date/Time: Oct 22 2022 11:33A Dictated by : BETTE JOHNSON MD This examination was interpreted and the report reviewed and electronically signed by: BETTE JOHNSON MD on Oct 22 2022 11:35AM EST [id number] N Normal [facility] No Panel Informationon 11-21 [facility] MRI BRAIN WO/W IVCONon 10-24 [facility] MRI 3D POST PROCESSINGon MRI 3D POST PROCESSING * * *Final Report * * * DATE OF EXAM: Jul 11 2021 12:35PM [facility] 0280 - MRI 3D POST PROCESSING / PROCEDURE REASON: multiple diagnoses * * * * Physician Interpretation * * * * RESULT: EXAMINATION: MRI BRAIN W QUANT WO IVCON, MRI 3D POST PROCESSING CLINICAL HISTORY: Dementia without behavioral disturbance, unspecified dementia type (HCC) TECHNIQUE: Axial RONALDO FLAIR, RONALDO T2, diffusion and susceptibility weighted imaging without contrast, using the ADNI dementia protocol and 3-D post-processing using the NeuroHuman[employer] software at an independent workstation with concurrent physician supervision and images were created, reviewed and archived. MQ: [id number] COMPARISON: None RESULT: QUALITATIVE: Acute Intracranial Process: None. Chronic Intracranial Process: None. Age related white matter changes (ARW) rating: White matter lesions: 1 Basal ganglia lesions: 0 Prior intracranial hemorrhage: Parenchymal microhemorrhages: 1. In the right anterior subinsular region. Other (siderosis/macrohemor rhages (>10mm): Not Applicable Amyloid Related Imaging Abnormalities: ARIA-E: N/A ARIA-H Microhemorrhage: N/A ARIA-H Siderosis: N/A Qualitative brain and hippocampal volume loss for age: Cortex: Moderate to severe and generalized White Matter: Moderate to severe and generalized Hippocampi: Moderate to severe and symmetric Ventricles: Commensurate with volume loss. Brain Parenchymal Signal and Morphology: The brain parenchyma is otherwise within normal limits of signal and morphology. There is no evidence of an intracranial mass or extraaxial fluid collection. Other Significant Findings: There is moderately sinus involving the left seen a sinuses.. QUANTITATIVE: Exam Quality: Good for volumetric analysis. Segmentation: Accurate segmentation by visual inspection Quantitative Data: Total Hippocampal Volume: Percentile for Age: 1 Asymmetry Index: -12.49 Inferior Lateral Vent Volume: Percentile for age: 56 Asymmetry Index: 16.97 Superior Lateral Vent Volume: Percentile for age: 26 Asymmetry Index: 23.68 Temporal Lobe Volume: Temporal Lobe Percentile for Age: 2 Temporal Lobe Asymmetry Index: -15.71 Frontal Lobe Volume: Frontal Lobe Percentile for Age: 53 Frontal Lobe Asymmetry Index: -6.60 Parietal Lobe Volume: Parietal Lobe Percentile for Age:56 Occipital Lobe Volume: Occipital Lobe Percentile for Age: 94 Whole Brain Volume Brain Percentile for Age: 10 Concordance between qualitative and quantitative hippocampal volume assessment: Concordant Change in brain volumes: No previous volumetric study for comparison Brain Volume Change: N/A Hippocampal Volume Change: N/A Superior Lateral Ventricle Volume Change: N/A Inferior Lateral Ventricle Volume Change: N/A Mean hippocampal volume loss among normal elderly: 0.7% per year, (-0.3 to 1.7; Mason 2008; also Pankaj 2010). IMPRESSION: * No evidence of an acute intracranial process or intracranial mass. * Moderate to severe generalized volume loss. * Hippocampal volumes at the 1st percentile when compared to age matched normal controls by quantitative analysis. * Mild white matter disease which is nonspecific but likely reflective of chronic microvascular ischemia. * Less than 5 parenchymal microhemorrhages by MRI. REFERENCES: White Matter Lesions: 0 = No lesions, including symmetrical, well-defined caps or bands 1 = Focal Lesions 2 = Beginning of [place] 3 = Diffuse Involvement of Entire Region Basal Ganglia Lesions: 0 = No Lesions 1 = 1 Focal Lesion (>5mm) 2 = >1 Focal Lesion (>5mm) 3 = Confluent Lesions Pankaj Ponce et al. The clinical use of structural MRI in Alzheimer disease. Nature Reviews Neurology 6;67 (2010). Mason et al. Validation of a fully automated 3D hippocampal segmentation method using subjects with Alzheimer's disease mild cognitive impairment, and elderly controls. Neuroimage 43;59 (2008). Helene et al. A New Rating Scale for Age-Related White Matter Changes Applicable to MRI and CT. Stroke. 32:1318 (2001). * Asymmetry index defined as difference between left and right volumes divided by mean or [(L-R/Mean) x 100] (%). Age-matched reference charts measure total hippocampal volume (% of intracranial volume). See results from the analysis charts for details. Transcribed Using Voice Recognition Transcribe Date/Time: Jul 11 2021 1:21P Dictated by: JUAN RASHID MD This examination was interpreted and the report reviewed and electronically signed by: JUAN RASHID MD on Jul 11 2021 2:26PM EST [id number] N [facility] MRI BRAIN W QUANT WO IVCONon 07-11-2021 MRI BRAIN W QUANT WO IVCON * * *Final Report* * * DATE OF EXAM: Jul 11 2021 12:35PM [facility] 3015 - MRI BRAIN W QUANT WO IVCON / PROCEDURE REASON: Dementia without behavioral disturbance, unspecified dementia type (HCC) * * * * Physician Interpretation * * * * RESULT: EXAMINATION: MRI BRAIN W QUANT WO IVCON, MRI 3D POST PROCESSING CLINICAL HISTORY: Dementia without behavioral disturbance, unspecified dementia type (HCC) TECHNIQUE: Axial RONALDO FLAIR, RONALDO T2, diffusion and susceptibility weighted imaging without contrast, using the ADNI dementia protocol and 3-D post-processing using the [employer] software at an independent workstation with concurrent physician supervision and images were created, reviewed and archived. MQ: [id number] COMPARISON: None RESULT: QUALITATIVE: Acute Intracranial Process: None. Chronic Intracranial Process: None. Age related white matter changes (ARWMC) rating: White matter lesions: 1 Basal ganglia lesions: 0 Prior intracranial hemorrhage: Parenchymal microhemorrhages: 1. In the right anterior subinsular region. Other (siderosis/macrohemor rhages (>10mm): Not Applicable Amyloid Related Imaging Abnormalities: ARIA-E: N/A ARIA-H Microhemorrhage: N/A ARIA-H Siderosis: N/A Qualitative brain and hippocampal volume loss for age: Cortex: Moderate to severe and generalized White Matter: Moderate to severe and generalized Hippocampi: Moderate to severe and symmetric Ventricles: Commensurate with volume loss. Brain Parenchymal Signal and Morphology: The brain parenchyma is otherwise within normal limits of signal and morphology. There is no evidence of an intracranial mass or extraaxial fluid collection. Other Significant Findings: There is moderately sinus involving the left seen a sinuses.. QUANTITATIVE: Exam Quality: Good for volumetric analysis. Segmentation: Accurate segmentation by visual inspection Quantitative Data: Total Hippocampal Volume: Percentile for Age: 1 Asymmetry Index: -12.49 Inferior Lateral Vent Volume: Percentile for age: 56 Asymmetry Index: 16.97 Superior Lateral Vent Volume: Percentile for age: 26 Asymmetry Index: 23.68 Temporal Lobe Volume: Temporal Lobe Percentile for Age: 2 Temporal Lobe Asymmetry Index: -15.71 Frontal Lobe Volume: Frontal Lobe Percentile for Age: 53 Frontal Lobe Asymmetry Index: -6.60 Parietal Lobe Volume: Parietal Lobe Percentile for Age:56 Occipital Lobe Volume: Occipital Lobe Percentile for Age: 94 Whole Brain Volume Brain Percentile for Age: 10 Concordance between qualitative and quantitative hippocampal volume assessment: Concordant Change in brain volumes: No previous volumetric study for comparison Brain Volume Change: N/A Hippocampal Volume Change: N/A Superior Lateral Ventricle Volume Change: N/A Inferior Lateral Ventricle Volume Change: N/A Mean hippocampal volume loss among normal elderly: 0.7% per year, (-0.3 to 1.7; Mason 2008; also Pankaj 2010). IMPRESSION: * No evidence of an acute intracranial process or intracranial mass. * Moderate to severe generalized volume loss. * Hippocampal volumes at the 1st percentile when compared to age matched normal controls by quantitative analysis. * Mild white matter disease which is nonspecific but likely reflective of chronic microvascular ischemia. * Less than 5 parenchymal microhemorrhages by MRI. REFERENCES: White Matter Lesions: 0 = No lesions, including symmetrical, well-defined caps or bands 1 = Focal Lesions 2 = Beginning of [place] 3 = Diffuse Involvement of Entire Region Basal Ganglia Lesions: 0 = No Lesions 1 = 1 Focal Lesion (>5mm) 2 = >1 Focal Lesion (>5mm) 3 = Confluent Lesions Pankaj Ponce et al. The clinical use of structural MRI in Alzheimer disease. Nature Reviews Neurology 6;67 (2010). Mason et al. Validation of a fully automated 3D hippocampal segmentation method using subjects with Alzheimer's disease mild cognitive impairment, and elderly controls. Neuroimage 43;59 (2008). Helene et al. A New Rating Scale for Age-Related White Matter Changes Applicable to MRI and CT. Stroke. 32:1318 (2001). * Asymmetry index defined as difference between left and right volumes divided by mean or [(L-R/Mean) x 100] (%). Age-matched reference charts measure total hippocampal volume (% of intracranial volume). See results from the analysis charts for details. Transcribed Using Voice Recognition Transcribe Date/Time: Jul 11 2021 1:21P Dictated by: JUAN RASHID MD This examination was interpreted and the report reviewed and electronically signed by: JUAN RASHID MD on Jul 11 2021 2:26PM EST [id number] Normal [facility] Absolute lymphocyte counton 06-11-2021 Lymphocytes Auto (Unsp spec) [#/Vol] 0.76 10*3/uL 0.83-4.51 [facility] Work Phone: Basophil percentageon 2021 Basophil percentage 0-5 SEEN /hpf [facility] Work Phone: Basophils/100 WBC (Bld) 0.4 % 0-1 [facility] Work Phone: Bilirubin [Mass/Vol] 0.60 mg/dL 0.20-1.00 [facility] Work Phone: Comment on above: For patients on eltr ombopag therapy, use of Dimension [place] TBIL is not recommended. Chloride [Moles/Vol] 108 mmol/L 98-107 [facility] Work Phone: Eosinophils/100 WBC (Bld) 0.9 % 0-5 [facility] Work Phone: Glucose [Mass/Vol] 131 mg/dL 74-106 [facility] Work Phone: Comment on above: Fasting Glucose resu lt greater than or equal to 126 mg/dL suggests DIABETES MELLITUS per A.D.A. criteria. Neutrophils (Bld) [#/Vol] 5.8 10*3/uL 2.0-7.7 [facility] Work Phone: Neutrophils/100 WBC (Bld) 82.4 % 47-70 [facility] Work Phone: Potassium [Moles/Vol] 3.7 mmol/L 3.5-5.1 [facility] Work Phone: Protein [Mass/Vol] 7.3 g/dL 6.4-8.2 [facility] Work Phone: Sodium [Moles/Vol] 139 mmol/L 136-145 [facility] Work Phone: WBC (Bld) [#/Vol] 7.0 10*3/uL 4.4-11.0 [facility] Work Phone: Bilirubin Test strip Ql (U)o n 06-11-2021 Bilirubin Ql (U) Negative Negative [facility] Work Phone: Blood erythrocytes count (nu mber/volume)on 06-11-2021 RBC (Bld) [#/Vol] 4.49 10*6/uL 4.2-5.4 [facility] Work Phone: Blood hemoglobin measurement (mass/volume)on 06-11-2021 Hemoglobin (Bld) [Mass/Vol] 13.4 g/dL 12.0-15.0 [facility] Work Phone: Blood lymphocytes/100 leukoc yteson 06-11-2021 Lymphocytes/100 WBC (Bld) 10.8 % 19-41 [facility] Work Phone: Blood monocytes/100 leukocyt eson 06-11-2021 Monocytes/100 WBC (Bld) 5.1 % 0-10 [facility] Work Phone: Blood platelet mean volumeon 06-11-2021 Platelet mean volume (Bld) [Entitic vol] 10.7 fL 6.2-12.0 [facility] Work Phone: [phone] Determination of erythrocyte mean corpuscular volume (MCV)on 06-11-2021 MCV (RBC) [Entitic vol] 90.6 fL 81-99 [facility] Work Phone: [phone] Hematocrit Auto (Bld) [Volum e fraction]on 06-11-2021 Hematocrit (Bld) [Volume fraction] 40.7 % 37-47 [facility] Work Phone: [phone] Ketones Test strip Ql (U)on 06-11-2021 Ketones Ql (U) 5 mg/dl Negative [facility] Work Phone: [phone] Laboratory - Chemistry and C hemistry - challengeon 06-11-2021 ALP [Catalytic activity/Vol] 78 U/L 45-117 [facility] Work Phone: [phone] ALT [Catalytic activity/Vol] 17 U/L 13-56 [facility] Work Phone: [phone] CO2 [Moles/Vol] 28.0 mmol/L 21.0-32.0 [facility] Work Phone: [phone] Globulin (S) [Mass/Vol] 3.6 g/dL 2.2-4.2 [facility] Work Phone: [phone] Lipase [Catalytic activity/Vol] 334 U/L 73-393 [facility] Work Phone: [phone] Urea nitrogen/Creatinine [Mass ratio] 15.6 mg/mg 10-20 [facility] Work Phone: [phone] Laboratory - Hematology and Cell countson 06-11-2021 Erythrocyte distribution width (RBC) [Entitic vol] 42.5 fL 35.1-43.9 [facility] Work Phone: [phone] Erythrocyte distribution width (RBC) [Ratio] 12.8 % 11.6-14.6 [facility] Work Phone: [phone] Immature granulocytes/100 WBC (Bld) 0.400 % 0.0-0.9 [facility] Work Phone: Comment on above: IG% - Immature Granu locytes (promyelocytes, myelocytes and metamyelocytes) > 1% indicates that a LEFT SHIFT is Present. MCH (RBC) [Entitic mass] 29.8 pg 27.0-32.0 [facility] Work Phone: Nucleated RBC/100 WBC (Bld) [Ratio] 0 % 0-5 [facility] Work Phone: [phone] MCHC Auto (RBC) [Mass/Vol]on 06-11-2021 MCHC (RBC) [Mass/Vol] 32.9 g/dL 32-36 [facility] Work Phone: Mucus LM Ql (Urine sed)on Mucus Ql (Urine sed) 0 SEEN /hpf [facility] Work Phone: [phone] Nitrite Test strip Ql (U)on 06-11-2021 Nitrite Ql (U) Negative Negative [facility] Work Phone: No Panel Informationon 06-11 Estimated Creatinine Clearance Calc 42.76 ml/min [facility] Work Phone: Estimated GFR (MDRD) Amer 72 mL/min >60 [facility] Work Phone: Comment on above: GFR Calc Estimated GFR (MDRD) Non-Af Amer 59 mL/min >60 [facility] Work Phone: [phone] Comment on above: Non- GFR Calc Thyroid Stimulating Hormone (TSH) 0.16 uIU/mL 0.358-3.74 [facility] Work Phone: [phone] Troponin I High Sensitivity 6 pg/mL 3.0-54.0 [facility] Work Phone: [phone] Comment on above: Please Note: New Sherly t Units and Gender Specific Reference Ranges. For more information see Policy Stat Procedure [place] High Sensitivity Troponin (TNIH) and attachments. Platelets bldon 06-11-2021 Platelets (Bld) [#/Vol] 242 10*3/uL 150-450 [facility] Work Phone: Protein Test strip Ql (U)on 06-11-2021 Protein Ql (U) Negative Negative [facility] Work Phone: [phone] Serum or plasma albumin derrick urement (mass/volume)on 06-11-2021 Albumin [Mass/Vol] 3.7 g/dL 3.2-5.0 [facility] Work Phone: [phone] Serum or plasma albumin/glob ulin mass ratioon 06-11-2021 Albumin/Globulin [Mass ratio] 1.0 {ratio} 0.9-2.4 [facility] Work Phone: [phone] Serum or plasma calcium derrick urement (mass/volume)on 06-11-2021 Calcium [Mass/Vol] 8.7 mg/dL 8.5-10.1 [facility] Work Phone: [phone] Serum or plasma creatinine m easurement (mass/volume)on 06-11-2021 Creatinine [Mass/Vol] 0.96 mg/dL 0.55-1.02 [facility] Work Phone: Comment on above: The validity of the calculated GFR & GFRAA in patients over 70 years has not been determined. Clinical correlation is essential. Serum or plasma urea nitroge n measurement (mass/volume)on 06-11-2021 Urea nitrogen [Mass/Vol] 15 mg/dL 7-18 [facility] Work Phone: [phone] Squamous epithelial cells de tection in urine sediment by light microscopyon 06-11-2021 Epithelial cells.squamous LM Ql (Urine sed) 0 SEEN /hpf [facility] Work Phone: [phone] Thin prep Papanicolaou smear with manual screeningon 06-11-2021 Thin prep Papanicolaou smear with manual screening 15 U/L 15-37 [facility] Work Phone: [phone] Thin prep Papanicolaou smear with manual screening 3 5-15 [facility] Work Phone: [phone] Urine blood detectionon 05-24-2021 RBC Ql (U) 50 /ul Negative [facility] Work Phone: RBC Ql (U) 0-5 SEEN /hpf [facility] Work Phone: Urine clarityon 06-11-2021 Clarity (U) Clear Clear [facility] Work Phone: Urine color determinationon 06-11-2021 Color (U) Yellow Yellow [facility] Work Phone: Urine glucose detectionon Glucose Ql (U) Normal mg/dl Normal [facility] Work Phone: Urine leukocyte esterase det ection by dipstickon 06-11-2021 Leukocyte esterase Test strip Ql (U) 25 /ul Negative [facility] Work Phone: Urine pHon 06-11-2021 pH (U) 6.0 [pH] [facility] Work Phone: Urine sediment bacteria coun t by microscopy (number/high power field)on 06-11-2021 Bacteria LM.HPF (Urine sed) [#/Area] 0 /[HPF] None Seen [facility] Work Phone: Urine specific gravity measu rementon 06-11-2021 Specific gravity (U) [Rel density] 1.015 [facility] Work Phone: Urobilinogen Auto test strip Ql (U)on 06-11-2021 Urobilinogen Ql (U) Normal mg/dl Normal [facility] Work Phone: Vital Signs Date Time Vital Sign Value Performing Clinician Facility 10-16-2024 09:57-0400 Body mass index (BMI) [Ratio] 30.05 kg/m2 Vansesa Her MD Work Phone: [facility] 10-16-2024 09:57-0400 Body weight 81.92 kg Vanessa Her MD Work Phone: [facility] 10-16-2024 09:57-0400 Diastolic blood pressure 77 mm[Hg] Vanessa Her MD Work Phone: [facility] 10-16-2024 09:57-0400 Heart rate 66 /min Vanessa Her MD Work Phone: [facility] 10-16-2024 09:57-0400 Respiratory rate 16 /min Vanessa Her MD Work Phone: [facility] 10-16-2024 09:57-0400 Systolic blood pressure 135 mm[Hg] Vanessa Her MD Work Phone: [facility] 06-10-2024 11:28-0400 Body height 165.1 cm Juana Prabhakar 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 Work Phone: [facility] 06-10-2024 11:28-0400 Body mass index (BMI) [Ratio] 30.45 kg/m2 Juana Prabhakar 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 Work Phone: [facility] 06-10-2024 11:28-0400 Body weight 83 kg Juana Prabhakar 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 Work Phone: [facility] 06-10-2024 11:28-0400 Diastolic blood pressure 74 mm[Hg] Juana Prabhakar 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 Work Phone: [facility] 06-10-2024 11:28-0400 Heart rate 61 /min Juana Prabhakar 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 Work Phone: [facility] 06-10-2024 11:28-0400 SaO2% (BldA) [Mass fraction] 99 % Juana Prabhakar 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 Work Phone: [facility] 06-10-2024 11:28-0400 Systolic blood pressure 132 mm[Hg] Juana Prabhakar 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 Work Phone: [facility] 05-19-2024 09:03-0500 Body height 165.1 cm Vanessa Her MD Work Phone: [facility] 05-19-2024 09:03-0500 Body mass index (BMI) [Ratio] 30.29 kg/m2 Vanessa Her MD Work Phone: [facility] 05-19-2024 09:03-0500 Body weight 82.56 kg Vanessa Her MD Work Phone: [facility] 05-19-2024 09:03-0500 Diastolic blood pressure 88 mm[Hg] Vanessa Her MD Work Phone: [facility] 05-19-2024 09:03-0500 Heart rate 67 /min Vanessa Her MD Work Phone: [facility] 05-19-2024 09:03-0500 SaO2% (BldA) [Mass fraction] 98 % Vanessa Her MD Work Phone: [facility] 05-19-2024 09:03-0500 Systolic blood pressure 138 mm[Hg] Vanessa Her MD Work Phone: [facility] 03-09-2024 10:58-0500 Body height 165.1 cm Rossy Crocker DO Work Phone: [facility] 03-09-2024 10:58-0500 Body mass index (BMI) [Ratio] 28.51 kg/m2 Rossy Crocker DO Work Phone: [facility] 03-09-2024 10:58-0500 Body weight 77.7 kg Rossy Crocker DO Work Phone: [facility] 03-09-2024 10:58-0500 Diastolic blood pressure 74 mm[Hg] Rossy Crocker DO Work Phone: [facility] 03-09-2024 10:58-0500 Heart rate 83 /min Rossy Crocker DO Work Phone: [facility] 03-09-2024 10:58-0500 SaO2% (BldA) [Mass fraction] 98 % Rossy Crocker DO Work Phone: [facility] 03-09-2024 10:58-0500 Systolic blood pressure 126 mm[Hg] Rossy Crocker DO Work Phone: [facility] 02-17-2024 14:03-0500 Body mass index (BMI) [Ratio] 29.95 kg/m2 Vanessa Her MD Work Phone: [facility] 02-17-2024 14:03-0500 Body weight 81.65 kg Vanessa Her MD Work Phone: [facility] 02-17-2024 14:03-0500 Diastolic blood pressure 81 mm[Hg] Vanessa Her MD Work Phone: [facility] 02-17-2024 14:03-0500 Heart rate 62 /min Vanessa Her MD Work Phone: [facility] 02-17-2024 14:03-0500 Respiratory rate 16 /min Vanessa Her MD Work Phone: [facility] 02-17-2024 14:03-0500 Systolic blood pressure 149 mm[Hg] Vanessa Her MD Work Phone: [facility] 11-13-2023 07:38-0400 Body height 165.1 cm Vanessa Her MD Work Phone: [facility] 11-13-2023 07:38-0400 Body mass index (BMI) [Ratio] 30.79 kg/m2 Vanessa Her MD Work Phone: [facility] 11-13-2023 07:38-0400 Body weight 83.92 kg Vanessa Her MD Work Phone: [facility] 11-13-2023 07:38-0400 Diastolic blood pressure 70 mm[Hg] Vanessa Her MD Work Phone: [facility] 11-13-2023 07:38-0400 Heart rate 57 /min Vanessa Her MD Work Phone: [facility] 11-13-2023 07:38-0400 Respiratory rate 16 /min Vanessa Her MD Work Phone: [facility] 11-13-2023 07:38-0400 Systolic blood pressure 124 mm[Hg] Vanessa Her MD Work Phone: [facility] 10-24-2023 09:19-0400 Body mass index (BMI) [Ratio] 28.92 kg/m2 Vanessa Her MD Work Phone: [facility] 10-24-2023 09:19-0400 Body weight 81.28 kg Vanessa Her MD Work Phone: [facility] 10-24-2023 09:19-0400 Diastolic blood pressure 68 mm[Hg] Vanessa Her MD Work Phone: [facility] 10-24-2023 09:19-0400 Heart rate 65 /min Vanessa Her MD Work Phone: [facility] 10-24-2023 09:19-0400 SaO2% (BldA) [Mass fraction] 98 % Vanessa Her MD Work Phone: [facility] 10-24-2023 09:19-0400 Systolic blood pressure 128 mm[Hg] Vanessa Her MD Work Phone: [facility] 05-03-2023 11:00-0500 Diastolic blood pressure 70 mm[Hg] Tanna Lemon PT [facility] 05-03-2023 11:00-0500 Systolic blood pressure 123 mm[Hg] Tanna Lemon PT [facility] 2023 12:29-0500 Body temperature 97.81 [degF] Kinga Slabaugh PA-C Work Phone: [facility] 2023 12:29-0500 Body weight 79.83 kg Kinga Slabaugh PA-C Work Phone: [facility] 2023 12:29-0500 Diastolic blood pressure 85 mm[Hg] Kinga Slabaugh PA-C Work Phone: [facility] 2023 12:29-0500 Heart rate 69 /min Kinga Slabaugh PA-C Work Phone: [facility] 2023 12:29-0500 Respiratory rate 18 /min Kinga Slabaugh PA-C Work Phone: [facility] 2023 12:29-0500 SaO2% (BldA) [Mass fraction] 99 % Kinga Slabaugh PA-C Work Phone: [facility] 2023 12:29-0500 Systolic blood pressure 171 mm[Hg] Kinga Melendrez PA-C Work Phone: [facility] 03-07-2023 [id number] Body height 167.6 cm Rossy Crocker DO Work Phone: [facility] 03-07-2023 10:26-0500 Body weight 76.66 kg Rossy Crocker DO Work Phone: [facility] 03-07-2023 10:26-0500 Diastolic blood pressure 82 mm[Hg] Rossy Crocker DO Work Phone: [facility] 03-07-2023 10:26-0500 Heart rate 62 /min Rossy Crocker DO Work Phone: [facility] 03-07-2023 10:26-0500 SaO2% (BldA) [Mass fraction] 97 % Rossy Crocker DO Work Phone: [facility] 03-07-2023 [id number] Systolic blood pressure 128 mm[Hg] Rossy Crocker DO Work Phone: [facility] 11-13-2022 13:11-0400 Body height 167.6 cm Tejinder Funes MD Work Phone: [facility] 11-13-2022 13:11-0400 Body temperature 97.2 [degF] Tejinder Funes MD Work Phone: [facility] 11-13-2022 13:11-0400 Body weight 81.19 kg Tejinder Funes MD Work Phone: [facility] 11-13-2022 13:11-0400 Diastolic blood pressure 64 mm[Hg] Tejinder Funes MD Work Phone: [facility] 11-13-2022 13:11-0400 Heart rate 86 /min Tejinder Funes MD Work Phone: [facility] 11-13-2022 13:11-0400 SaO2% (BldA) [Mass fraction] 100 % Tejinder Funes MD Work Phone: [facility] 11-13-2022 13:11-0400 Systolic blood pressure 118 mm[Hg] Tejinder Funes MD Work Phone: [facility] 07-10-2022 08:39-0400 Body height 167.6 cm Oneyda Ramos MD Work Phone: [facility] 07-10-2022 08:39-0400 Body temperature 96.8 [degF] Oneyda Ramos MD Work Phone: [facility] 07-10-2022 08:39-0400 Body weight 84.28 kg Oneyda Ramos MD Work Phone: [facility] 07-10-2022 08:39-0400 Diastolic blood pressure 82 mm[Hg] Oneyda Ramos MD Work Phone: [facility] 07-10-2022 08:39-0400 Heart rate 117 /min Oneyda Ramos MD Work Phone: [facility] 07-10-2022 08:39-0400 SaO2% (BldA) [Mass fraction] 98 % Oneyda Ramos MD Work Phone: [facility] 07-10-2022 08:39-0400 Systolic blood pressure 118 mm[Hg] Oneyda Ramos MD Work Phone: [facility] 11-16-2021 10:27-0400 Body height 162.6 cm Faith Stewart PA-C Work Phone: [facility] 11-16-2021 10:27-0400 Body weight 88 kg Faith Stewart PA-C Work Phone: [facility] 11-16-2021 10:27-0400 Diastolic blood pressure 80 mm[Hg] Faith Stewart PA-C Work Phone: [facility] 11-16-2021 10:27-0400 Heart rate 72 /min Faith Stewart PA-C Work Phone: [facility] 11-16-2021 10:27-0400 Systolic blood pressure 134 mm[Hg] Faith Stewart PA-C Work Phone: [facility] 10-05-2021 09:35-0400 Body temperature 97.9 [degF] Vanessa Her MD Work Phone: [facility] 10-05-2021 09:35-0400 Body weight 89.81 kg Vanessa Her MD Work Phone: [facility] 10-05-2021 09:35-0400 Diastolic blood pressure 80 mm[Hg] Vanessa Her MD Work Phone: [facility] 10-05-2021 09:35-0400 Heart rate 66 /min Vanessa Her MD Work Phone: [facility] 10-05-2021 09:35-0400 Respiratory rate 16 /min Vanessa Her MD Work Phone: [facility] 10-05-2021 09:35-0400 SaO2% (BldA) [Mass fraction] 98 % Vanessa Her MD Work Phone: [facility] 10-05-2021 09:35-0400 Systolic blood pressure 130 mm[Hg] Vanessa Her MD Work Phone: [facility] 07-11-2021 13:55-0400 Body weight 92.17 kg Joaquin Palacios APRN.DISHTANK OPERATOR Work Phone: [facility] 07-11-2021 13:55-0400 Diastolic blood pressure 63 mm[Hg] Joaquin Palacios APRN.DISHTANK OPERATOR Work Phone: [facility] 07-11-2021 13:55-0400 Heart rate 78 /min Joaquin Palacios APRN.DISHTANK OPERATOR Work Phone: [facility] 07-11-2021 13:55-0400 Systolic blood pressure 114 mm[Hg] Joaquin Palacios APRN.DISHTANK OPERATOR Work Phone: [facility] 06-11-2021 15:54-0400 Diastolic blood pressure 73 mm[Hg] [facility] Work Phone: 06-11-2021 15:54-0400 Heart rate 84 /min [facility] Work Phone: 06-11-2021 15:54-0400 Respiratory rate 16 /min [facility] Work Phone: 06-11-2021 15:54-0400 SaO2% (BldA) [Mass fraction] 99 % [facility] Work Phone: 06-11-2021 15:54-0400 Systolic blood pressure 158 mm[Hg] [facility] Work Phone: 06-11-2021 12:17-0400 Body height 165.[address] [facility] Work Phone: 06-11-2021 12:17-0400 Body mass index (BMI) [Ratio] 35.3 kg/m2 [facility] Work Phone: 06-11-2021 12:17-0400 Body temperature 97.8 [degF] [facility] Work Phone: 06-11-2021 12:17-0400 Body weight 96.[address] [facility] Work Phone: Encounters Encounter Date Encounter Type Care Provider Facility Start: 11-27-2024 End: 11-27-2024 Patient Outreach Maria Esther Sosa RN Work Phone: [employer] Comment on above: Transition Of Care ( Chart review) Start: 10-27-2024 End: 10-27-2024 Telephone encounter Yris GARCIA Work Phone: [employer] [facility] Start: 10-23-2024 End: 10-23-2024 Telephone encounter Yris GARCIA Work Phone: [employer] [facility] Start: 10-22-2024 End: 10-22-2024 Telephone encounter Shelbie Cm MD Work Phone: [employer] [facility] Comment on above: Initial Consult (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) Start: 10-22-2024 End: 10-22-2024 Telemedicine consultation with patient Shelbie Cm MD Work Phone: [employer] Start: 10-20-2024 End: 10-21-2024 Telephone encounter Nehal Pablo [facility] - Compliance Comment on above: Compliance Adherence Start: 10-19-2024 End: 10-20-2024 Telephone encounter Pranav Gorman MSW Navigation Start: 10-16-2024 End: 10-16-2024 Patient encounter procedure Vanessa Her MD Work Phone: [facility] [place] Comment on above: Persistent atrial fi brillation (HCC) (Primary Dx); Medicare annual wellness visit, subsequent; Severe late onset Alzheimer's dementia, unspecified whether behavioral, psychotic, or mood disturbance or anxiety (HCC); Stage 3a chronic kidney disease (HCC); Screening for depression; Encounter for screening examination for other mental health and behavioral disorders Start: 10-16-2024 End: 10-16-2024 ambulatory [facility] Facility:[facility] Start: 09-14-2024 End: 09-14-2024 ambulatory Milana Dietrich MA [facility] Start: 09-14-2024 End: 09-14-2024 Patient encounter procedure Milana Dietrich MA [facility] Comment on above: Population Health Na vigation Outreach ( ERIC HARTMANN [facility] // ) Start: 08-21-2024 End: 08-21-2024 ambulatory [facility] Facility:[facility] Start: 08-21-2024 End: 08-21-2024 Office consultation new/estab patient 40 min Vanessa Her MD Work Phone: [facility] [place] Comment on above: Dementia without beh avioral disturbance (HCC) (Primary Dx); Medical non-compliance; Acquired hypothyroidism Start: 06-12-2024 End: 06-16-2024 Paul Lambert APRN.CNP Work Phone: [facility] Comment on above: Refill Request Start: 06-10-2024 End: 06-10-2024 ambulatory ROSSY CROCKER Facility:[facility] Start: 06-10-2024 End: 06-10-2024 Office outpatient visit 15 minutes Juana Prabhakar APRN.DISHTANK OPERATOR Work Phone: Cardiology Comment on above: Persistent atrial fi brillation (HCC) (Primary Dx); Essential hypertension; Mixed hyperlipidemia; PVC's (premature ventricular contractions) Start: 05-26-2024 End: 05-27-2024 Refill Yamilet Garciabeckie [facility]herence [facility] ing Comment on above: Refill Request Start: 05-19-2024 End: 05-19-2024 [facility] Start: 05-19-2024 End: 05-19-2024 Office outpatient visit 25 minutes Vanessa Her MD Work Phone: [facility] [place] Comment on above: Acquired hypothyroid ism (Primary Dx); Dementia with behavioral disturbance (HCC); Essential hypertension; Anemia, unspecified type; Stage 3a chronic kidney disease (HCC); Caregiver stress Start: 04-09-2024 End: 04-09-[address] [facility] Facility:[facility] Start: 04-05-2024 End: 04-08-2024 Refill Erica Noonan APRN.DISHTANK OPERATOR Work Phone: [facility] [place] Comment on above: Refill Request Start: 03-09-2024 End: 03-09-2024 [facility] Facility:[facility] Start: 03-09-2024 End: 03-09-2024 Patient encounter procedure Rossy Crocker DO Work Phone: Cardiology Comment on above: Persistent atrial fi brillation (HCC) (Primary Dx); PVC's (premature ventricular contractions); Essential hypertension; Mixed hyperlipidemia Start: 02-17-2024 End: 02-17-2024 Patient encounter procedure Vanessa Her MD Work Phone: [facility] [place] Comment on above: Alzheimer's dementia without behavioral disturbance, psychotic disturbance, mood disturbance, or anxiety, unspecified dementia severity, unspecified timing of dementia onset (HCC) (Primary Dx) Start: 02-17-2024 End: 02-17-2024 ambulatory [facility] Facility:[facility] Start: 02-11-2024 End: 02-11-2024 ambulatory [facility] Facility:[facility] Start: 02-04-2024 End: 02-07-2024 ambulatory Vanessa Her MD Work Phone: Internal Medicine [place] [id number] Start: 11-22-2023 End: 11-22-2023 Emergency department patient visit [facility] Facility:[facility] Start: 11-14-2023 End: 06-02-2024 Telephone encounter Vanessa Her MD Work Phone: [facility] [place] Start: 11-13-2023 End: 11-13-2023 Patient encounter procedure Vanessa Her MD Work Phone: [facility] [place] Comment on above: Alzheimer's disease (HCC) (Primary Dx); Anemia, unspecified type Start: 10-24-2023 End: 11-14-2023 Telephone encounter Vanessa Her MD Work Phone: [facility] [place] Comment on above: Orders (Geriatric co nsult) Start: 10-24-2023 End: 10-24-2023 Office outpatient visit 25 minutes Vanessa Her MD Work Phone: [facility] [place] Comment on above: Alzheimer's disease (HCC) (Primary Dx); Weight loss; Acquired hypothyroidism; Essential hypertension; Primary osteoarthritis involving multiple joints; Vitamin B12 deficiency; Dementia with behavioral disturbance (HCC) Start: 10-01-2023 Refill Meagan Older BOWLING BALL MOLDER .DISHTANK OPERATOR Work Phone: [facility] [place] Comment on above: Refill Request Start: 09-02-2023 Refill Meagan Older BOWLING BALL MOLDER .DISHTANK OPERATOR Work Phone: [facility] [place] Comment on above: Refill Request Start: 08-19-2023 End: 08-19-2023 Emergency department patient visit [facility] Facility:[facility] Start: 06-24-2023 End: 06-24-2023 ambulatory Vivian Constantino PTA Work Phone: [facility] Comment on above: Chronic pain of left knee (Primary Dx); Chronic knee instability, left Start: 06-17-2023 End: 06-17-2023 ambulatory Vivian Constantino PTA Work Phone: [facility] Comment on above: Chronic pain of left knee (Primary Dx); Chronic knee instability, left Start: 06-10-2023 End: 06-10-2023 ambulatory Vivian Constantino PTA Work Phone: [facility] Comment on above: Chronic pain of left knee (Primary Dx); Chronic knee instability, left Start: 06-03-2023 End: 06-03-2023 ambulatory Tanna Lemon PT [facility] Comment on above: Chronic pain of left knee (Primary Dx); Chronic knee instability, left Start: 05-27-2023 End: 05-27-2023 ambulatory Tanna Lemon PT [facility] Comment on above: Chronic pain of left knee (Primary Dx); Chronic knee instability, left Start: 05-10-2023 End: 05-10-2023 ambulatory Vivianelizabeth Constantino PTA Work Phone: [facility] Comment on above: Chronic pain of left knee (Primary Dx); Chronic knee instability, left Start: 05-08-2023 Refill Meagan Lambert APRN, .CNP Work Phone: Internal Medicine [place] Comment on above: Refill Request Start: 05-07-2023 End: 05-07-2023 Patient encounter procedure Bg Castillo Work Phone: Podiatry Comment on above: Acquired hallux limi tus of right foot (Primary Dx); Deformity of toe of right foot; Pain of toe of right foot; Onychomycosis; Pain in toe of left foot; Pain in toe of right foot; Callus Start: 05-07-2023 End: 05-07-2023 Subsequent hospital visit by physician [facility] [place] Demet[place] Work Phone: Radiology Comment on above: Deformity of toe of right foot [M20.61] Start: 05-03-2023 End: 05-03-2023 ambulatory Tanna Orellana PT [facility] Comment on above: Chronic pain of left knee (Primary Dx); Chronic knee instability, left Start: 2023 End: 2023 Patient encounter procedure Kinga Melendrez PA-C Work Phone: [place] [facility] Comment on above: COVID (Primary Dx) Start: 03-07-2023 End: 03-07-2023 ambulatory [facility] Facility:[facility] Start: 03-07-2023 End: 03-07-2023 Patient encounter procedure Rossy Crocker DO Work Phone: Cardiology Comment on above: PVC's (premature tr tricular contractions) (Primary Dx); Essential hypertension; Mixed hyperlipidemia Start: 03-03-2023 Refill Shyanne Del Angel APRN.DISHTANK OPERATOR Work Phone: Cardiology Comment on above: Refill Request Start: 11-20-2022 End: 11-20-2022 Patient encounter procedure Tejinder Funes MD Work Phone: General Surgery Comment on above: Soft tissue mass (Pr imary Dx) Start: 11-13-2022 End: 11-13-2022 Patient encounter procedure Tejinder Funes MD Work Phone: General Surgery Comment on above: Soft tissue mass; Tenderness Start: 11-05-2022 Telephone encounter Meagan Lambert APRN.DISHTANK OPERATOR Work Phone: Internal Medicine [place] Comment on above: Results Start: 10-18-2022 ambulatory [facility] Facility:[facility] Start: 10-18-2022 End: 10-18-2022 Subsequent hospital visit by physician [facility] Comment on above: Mass of soft tissue of left upper extremity [M79.89] Start: 10-09-2022 Refill Meagan PhamDISHTANK OPERATOR Work Phone: Internal Medicine [place] Comment on above: Refill Request Start: 10-05-2022 Refill Rossy Crocker DO Work Phone: Cardiology Comment on above: Refill Request Start: 08-01-2022 Telephone encounter Oneyda Hendrix MD Work Phone: General Surgery Comment on above: Results Start: 07-23-2022 End: 07-23-2022 Patient encounter procedure Oneyda Ramos MD Work Phone: General Surgery Comment on above: Skin cyst (Primary D x); Dysesthesia Start: 07-10-2022 Telephone encounter Vanessa moreno MD Work Phone: Internal Medicine [place] Comment on above: Insurance Authorizat ion Start: 07-10-2022 End: 07-10-2022 Patient encounter procedure Oneyda Ramos MD Work Phone: General Surgery Comment on above: Epidermal inclusion cyst; Dysesthesia Start: 03-27-2022 Refill Erica PhamDISHTANK OPERATOR Work Phone: Internal Medicine [place] Comment on above: Refill Request Start: 12-27-2021 Refill Rossy Crocker DO Work Phone: Cardiology Comment on above: Refill Request Start: 11-21-2021 End: 11-21-2021 Subsequent hospital visit by physician [facility] Work Phone: Radiology Comment on above: Projectile vomiting with nausea [R11.12] Start: 11-16-2021 End: 11-16-2021 Patient encounter procedure Faith William PA-C Work Phone: Gastroenterology [place] Comment on above: Projectile vomiting with nausea (Primary Dx) Start: 11-06-2021 Refill Rossy Crocker DO Work Phone: Cardiology Comment on above: Refill Request Start: 10-24-2021 End: 10-24-2021 Subsequent hospital visit by physician [facility] (I-Stat/1.5t) Work Phone: Radiology Comment on above: 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] Start: 10-05-2021 End: 10-05-2021 Patient encounter procedure Vanessa Her MD Work Phone: Internal Medicine [place] Comment on above: Projectile vomiting with nausea (Primary Dx); New onset of headaches; Essential hypertension; Mixed hyperlipidemia; Multiple and bilateral precerebral artery syndromes Start: 09-24-2021 Refill Daniel olivarez MD Work Phone: Neurology Comment on above: Refill Request Start: 09-19-2021 ambulatory Vanessa Fairchild Work Phone: Internal [facility] [place] Start: 07-11-2021 End: 07-12-2021 Patient encounter procedure Joaquin Philip RÍOS.DISHTANK OPERATOR Work Phone: Neurology Comment on above: 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 Start: 06-11-2021 End: 06-11-2021 Emergency department patient visit [facility] Start: 01-23-2016 Patient encounter procedure VANESSA HER [facility] Procedures Date Procedure Procedure Detail Performing Clinician Start: 10-16-2024 Adult depression scr eening assessment Vanessa Her MD Work Phone: Start: 03-09-2024 Ecg routine ecg w/le ast 12 lds i&r only [facility] Provider Start: 11-21-2021 Us abdominal real ti me w/image limited Faith William PA-C Work Phone: Start: 10-24-2021 Mri brain brain stem w/o w/contrast material Vanessa Her MD Work Phone: Start: 06-11-2021 End: 06-11-2021 Measurement of occult blood in gastric fluid specimen Plan of Treatment Date Care Activity Detail Author Start: 02-10-2027 Diabetes Screening Diabetes Screenin g [facility] Start: 04-19-2026 Diabetes Screening Diabetes Screenin g [facility] Start: 10-16-2025 Anxiety Screening Anxiety Screening [facility] Start: 10-16-2025 Depression Screening Depression Scre ening [facility] Start: 10-16-2025 Medicare Annual Well ness Visit Medicare Annual Wellness Visit [facility] Start: 10-16-2025 RSV Vaccine (1 - 1-d ose 75+ series) RSV Vaccine (1 - 1-dose 75+ series) [facility] Comment on above: Postponed from 03/25 (Declined at this time) Start: 07-10-2025 DIABETES SCREEN DIABETES SCREEN [facility] Start: 07-10-2025 Diabetes Screening Diabetes Screenin g [facility] Start: 04-19-2025 End: 04-19-2025 Patient encounter procedure 04/19/2025 11:20 AM EST Office Visit [facility] [place] [address] [place] [address] Vanessa Her MD [address] [place], [place] [id number] 6 Month F/U Internal Medicine [place] Comment on above: 6 Month F/U Start: 03-03-2025 End: 03-03-2025 Patient encounter procedure 03/03/2025 11:00 AM EST Office Visit Cardiology [address] [id number] Juana Prabhakar, 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 [address] [address] follow up Cardiology Comment on above: follow up Start: 11-23-2024 Influenza vaccination C [facility] Start: 10-16-2024 End: 10-16-2024 Patient encounter procedure 10/16/2024 10:00 AM EDT Office Visit Internal Medicine [place] [address] [place] [address] Vanessa Her MD [address] [place] [address] medicare wellness Internal Medicine [place] Comment on above: medicare wellness Start: 10-03-2024 DIABETES SCREEN DIABETES SCREEN [facility] Start: 08-21-2024 End: 08-21-2024 Patient encounter procedure 08/21/2024 9:20 AM EDT Office Visit Internal Medicine [place] [address] [facility] [place] [address] Vanessa Her MD [address] [place] [address] 3 month follow up Internal Medicine [place] Comment on above: 3 month follow up Start: 06-10-2024 End: 06-10-2024 Patient encounter procedure 06/10/2024 11:30 AM EDT Office Visit Cardiology [address] [address] Juana Prabhakar APRN.DISHTANK OPERATOR [address] [address] 3 month follow up Cardiology Comment on above: 3 month follow up Start: 05-19-2024 End: 08-18-2024 Thyrotropin [Units/volume] in Serum or Plasma [facility] Work Phone: Comment on above: Expected: 05/19/2024 , Expires: 08/18/2024 Start: 05-19-2024 End: 08-18-2024 Thyroxine (T4) free [Mass/volume] in Serum or Plasma [facility] Comment on above: Expected: 05/19/2024 , Expires: 08/18/2024 Start: 05-19-2024 End: 05-19-2024 Patient encounter procedure 05/19/2024 9:00 AM EST Office Visit Internal Medicine [place] [address] [facility] [place], [place] [address] Vanessa Her MD [address] [facility] [place] [id number] 3 MONTH FOLLOW UP Internal Medicine [place] Comment on above: 3 MONTH FOLLOW UP Start: 04-22-2024 RSV Vaccine (1 - 1-d ose 60+ series) RSV Vaccine (1 - 1-dose 60+ series) [facility] Comment on above: Postponed from 03/25 (Declined at this time) Start: 04-22-2024 RSV Vaccine (1 - 1-d ose 75+ series) RSV Vaccine (1 - 1-dose 75+ series) [facility] Comment on above: Postponed from 03/25 (Declined at this time) Start: 04-09-2024 End: 04-09-2024 Patient encounter procedure 04/09/2024 1:50 PM EST Office Visit Cardiology [address] [address] Persistent atrial fibrillation (HCC) [I48.19] Cardiology Comment on above: Persistent atrial fi brillation (HCC) [I48.19] Start: 04-07-2024 DIABETES SCREEN DIABETES SCREEN [facility] Start: 2024 Advance Directive Discussion Advance Directive Discussion [facility] Start: 03-09-2024 End: 03-09-2024 Patient encounter procedure Cardiology Comment on above: Annual follow up Start: 02-17-2024 End: 02-17-2024 Patient encounter procedure 02/17/2024 2:00 PM EST Office Visit Internal Medicine [place] [address] [place] [address] Vanessa Her MD [address] [place] [address] 3 month follow up geriatrics Internal Medicine [place] Comment on above: 3 month follow up doreen atkins Start: 02-13-2024 End: 02-13-2024 Patient encounter procedure 02/13/2024 11:00 AM EST Office Visit Internal Medicine [place] [address] [facility] [place] [address] Vanessa Her MD [address] [facility] [place] [address] 3 month follow up geriatrics Internal Medicine [place] Comment on above: 3 month follow up doreen [employer] Start: 02-11-2024 End: 02-11-2024 ambulatory 02/11/2024 9:30 AM EST Results Only [place] [facility] [address] [place] [address] [place] [facility] Start: 02-04-2024 End: 05-05-2024 Basic metabolic 2000 panel - Serum or Plasma BASIC METABOLIC PANEL Lab Routine CKD (chronic kidney disease) stage 3, GFR 30-59 ml/min ([facility]) Expected: 02/04/2024, Expires: 05/05/2024 [facility] Work Phone: Comment on above: Expected: 02/04/2024 , Expires: 05/05/2024 Start: 02-04-2024 End: 05-05-2024 Lipid 1996 panel - Serum or Plasma LIPID PANEL BASIC Lab Routine Mixed hyperlipidemia Expected: 02/04/2024, Expires: 05/05/2024 [facility] Comment on above: Expected: 02/04/2024 , Expires: 05/05/2024 Start: 11-24-2023 Covid-19 Vaccine () Covid-19 Vaccine () [facility] Start: 11-24-2023 Influenza vaccination Influenza Vacc ine (#1) [facility] Start: 11-14-2023 BP CONTROLLED (<130/80) BP CONTROLLE D (<130/80) [facility] Start: 11-13-2023 End: 02-12-2024 PROTEIN ELECTROPHORESIS SERUM W/INTERP [facility] Work Phone: Comment on above: Expected: 11/13/2023 , Expires: 02/12/2024 Start: 10-24-2023 End: 01-23-2024 Cobalamin (Vitamin B12) [Mass/volume] in Serum or Plasma [facility] Comment on above: Expected: 10/24/2023 , Expires: 01/23/2024 Start: 10-24-2023 End: 01-23-2024 Thyrotropin [Units/volume] in Serum or Plasma [facility] Work Phone: Comment on above: Expected: 10/24/2023 , Expires: 01/23/2024 Start: 10-24-2023 End: 10-24-2023 Patient encounter procedure 10/24/2023 9:20 AM EDT Office Visit Internal Medicine [place] [address] [place] [address] Vanessa Her MD [address] [place] [address] 6 Month follow up Internal Medicine [place] Comment on above: 6 Month follow up Start: 10-18-2023 ANNUAL PCP TEAM DRIVER/REFUSE COLLECTOR KAI DISEASE VISIT ANNUAL PCP TEAM CHRONIC DISEASE VISIT [facility] Start: 10-18-2023 COVID-19 VACCINE (6 - Pfizer series) COVID-19 VACCINE (6 - Pfizer series) [facility] Comment on above: Postponed from 06/03 (Declined at this time) Start: 07-11-2023 Complete blood count Hemoglobin/Santy tocrit [facility] Start: 07-11-2023 Creatinine measurement Serum Creatin ine [facility] Start: 07-11-2023 HEMOGLOBIN/HEMATOCRIT HEMOGLOBIN/HEM ATOCRIT [facility] Start: 07-11-2023 SERUM CREATININE SERUM CREATININE [facility] Start: 07-10-2023 ANNUAL PCP TEAM DRIVER/REFUSE COLLECTOR KAI DISEASE VISIT ANNUAL PCP TEAM CHRONIC DISEASE VISIT [facility] Start: 07-10-2023 Urine microalbumin profile [facility] Comment on above: Postponed from 03/05 (Declined at this time) Start: 06-10-2023 Covid-19 Vaccine ( season) Covid-19 Vaccine ( season) [facility] Start: 2023 Advance Directive Discussion Advance Directive Discussion [facility] Start: 11-23-2022 Influenza vaccination INFLUENZA (#1) [facility] Start: 10-05-2022 ANNUAL PCP TEAM DRIVER/REFUSE COLLECTOR KAI DISEASE VISIT ANNUAL PCP TEAM CHRONIC DISEASE VISIT [facility] Start: 07-11-2022 BP CONTROLLED (<130/80) BP CONTROLLE D (<130/80) [facility] Start: 06-03-2022 COVID-19 VACCINE (6 - Pfizer series) COVID-19 VACCINE (6 - Pfizer series) [facility] Start: 04-07-2022 HEMOGLOBIN/HEMATOCRIT HEMOGLOBIN/HEM ATOCRIT [facility] Start: 04-07-2022 SERUM CREATININE SERUM CREATININE [facility] Start: 04-06-2022 ANNUAL PCP TEAM DRIVER/REFUSE COLLECTOR KAI DISEASE VISIT ANNUAL PCP TEAM CHRONIC DISEASE VISIT [facility] Start: 2022 ADVANCE DIRECTIVE DISCUSSION ADVANCE DIRECTIVE DISCUSSION [facility] Start: 11-23-2021 Influenza vaccination INFLUENZA (#1) [facility] Start: 11-15-2021 COVID-19 VACCINE (5 - Booster for Pfizer series) COVID-19 VACCINE (5 - Booster for Pfizer series) [facility] Start: 09-19-2021 End: 11-19-2021 Hemoglobin A1c in Blood HGB A1C Lab Routine Medication management Expected: 09/19/2021, Expires: 11/19/2021 [facility] Work Phone: Comment on above: Expected: 09/19/2021 , Expires: 11/19/2021 Start: 09-19-2021 End: 11-19-2021 SCHEDULE LAB TESTING SCHEDULE LAB TESTING Lab Routine Expected: 09/19/2021, Expires: 11/19/2021 [facility] Work Phone: Comment on above: Expected: 09/19/2021 , Expires: 11/19/2021 Start: 05-07-2021 COVID-19 VACCINE (4 - Booster for Pfizer series) COVID-19 VACCINE (4 - Booster for Pfizer series) [facility] Start: 2021 ADVANCE DIRECTIVE DISCUSSION ADVANCE DIRECTIVE DISCUSSION [facility] Start: 2017 RSV Vaccine (1 - 1-d ose 75+ series) RSV Vaccine (1 - 1-dose 75+ series) [facility] Start: 03-05-2017 Urine microalbumin profile [facility] Start: 02-22-2007 Medicare Annual Well ness Visit Medicare Annual Wellness Visit [facility] Start: 2002 RSV Vaccine (1 - 1-d ose 60+ series) RSV Vaccine (1 - 1-dose 60+ series) [facility] Start: 1960 Anxiety Screening Anxiety Screening [facility] Start: 1960 BP CONTROLLED (<130/80) BP CONTROLLE D (<130/80) [facility] Start: 1960 Depression Screening Depression Scre ening [facility] ECG COMPLETE ECG COMPLETE ECG 03/09/2024 11:02 AM EST [facility] End: 03-09-2025 Echocardiography ECHO Cardiology Routine Persistent atrial fibrillation (HCC) PVC's (premature ventricular contractions) Essential hypertension Mixed hyperlipidemia 1 Occurrences starting 03/09/2024 until 03/09/2025 [facility] Work Phone: Comment on above: 1 Occurrences starti ng 03/09/2024 until 03/09/2025 Hemoglobin.gastroint estina l.lower [Presence] in Stool by Immunoassay IMMUNOCHEMICAL FECAL OCCULT BLOOD TEST Lab Routine Anemia, unspecified type Ordered: 11/13/2023 [facility] Comment on above: Ordered: 11/13/2023 End: 11-04-2022 Mri brain brain stem w/o w/contrast material MRI BRAIN WO/W IVCON Radiology Routine Multiple and bilateral precerebral artery syndromes 1 Occurrences starting 10/05/2021 until 11/04/2022 [facility] Work Phone: Comment on above: 1 Occurrences starti ng 10/05/2021 until 11/04/2022 Patient Education ED Vomiting (Adult) [facility] Work Phone: Patient referral [facility] Work Phone: SURGICAL PATHOLOGY SURGICAL PATH OLOGY Lab Routine Skin cyst 07/23/2022 9:21 AM EDT [facility] Work Phone: SURGICAL PATHOLOGY SURGICAL PATH OLOGY Lab Routine Soft tissue mass 11/20/2022 10:29 AM EDT [facility] Work Phone: End: 12-16-2022 Us abdominal real time w/image limited US ABD RT UPPER QUADRANT Radiology Routine Projectile vomiting with nausea 1 Occurrences starting 11/16/2021 until 12/16/2022 [facility] Work Phone: Comment on above: 1 Occurrences starti ng 11/16/2021 until 12/16/2022 US EXTREMITY MASS/FL UID COLLECTION LEFT US EXTREMITY MASS/FLUID COLLECTION LEFT Radiology Routine Mass of soft tissue of left upper extremity 10/18/2022 9:18 AM EDT [facility] Work Phone: XR Foot - right AP a nd Lateral and oblique XR FOOT GENERAL 3V AP/LAT/OBL RIGHT Radiology Routine Deformity of toe of right foot 05/07/2023 10:12 AM EST [facility] Work Phone: [facility] Immunizations Immunization Date Immunization Notes Care Provider Ilana stein 02-09-2023 COVID-19 vaccine, ag e 12+ yr, season (PFIZER-BIONTECH) Shyanne Quigley 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 Work Phone: [facility] 02-09-2023 influenza (HD-IIV4) vaccine, age 65+ yr, high dose, quadrivalent, PF (FLUZONE HIGH-DOSE) Shyanne Qiugley 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 Work Phone: [facility] 02-09-2023 influenza virus vacc ine, unspecified formulation Meagan Older 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 Work Phone: [facility] 02-03-2022 COVID-19 booster vaccine, age 12+ yr, bivalent (PFIZER-BIONTECH) Erica Older 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 Work Phone: [facility] 02-03-2022 influenza, high dose seasonal, preservative-free Erica Older 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 Work Phone: [facility] 01-04-2021 COVID-19 vaccine, ag e 12+ yr (PFIZER-BIONTECH - PURPLE TOP) Meagan Older 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 Work Phone: [facility] 01-04-2021 influenza, high dose seasonal, preservative-free Meagan Older 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 Work Phone: [facility] 10-21-2020 zoster vaccine recombinant Meagan Older 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 Work Phone: [facility] 08-16-2020 zoster vaccine recombinant Meagan Older 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 Work Phone: [facility] 06-10-2020 COVID-19 vaccine, ag e 12+ yr (PFIZER-BIONTECH - PURPLE TOP) Meagan Older 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 Work Phone: [facility] 05-20-2020 COVID-19 vaccine, ag e 12+ yr (PFIZER-BIONTECH - PURPLE TOP) Meagan Older 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 Work Phone: [facility] 12-11-2017 influenza, high dose seasonal, preservative-free Meagan Older 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 Work Phone: [facility] Work Phone: 12-30-2015 influenza, high dose seasonal, preservative-free Meagan Older 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 Work Phone: [facility] 01-13-2015 influenza, high dose seasonal, preservative-free Meagan Older 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 Work Phone: [facility] 07-20-2014 pneumococcal conjuga te vaccine, 13 valent Meagan Older 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 Work Phone: [facility] 01-12-2014 influenza, seasonal, injectable Meagan Older 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 Work Phone: [facility] 02-26-2012 influenza virus vacc ine, unspecified formulation Meagan Older 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 Work Phone: [facility] 02-22-2011 influenza virus vacc ine, unspecified formulation Meagan Older 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 Work Phone: [facility] 03-10-2010 influenza virus vacc ine, unspecified formulation Meagan Older 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 Work Phone: [facility] 03-22-2009 pneumococcal polysaccharide vaccine, 23 valent Meagan Older 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 Work Phone: [facility] Work Phone: 03-05-2007 influenza virus vacc ine, unspecified formulation Meagan Older 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 Work Phone: [facility] Work Phone: 03-05-2007 tetanus toxoid, redu anoop diphtheria toxoid, and acellular pertussis vaccine, adsorbed Meagan Older 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 Work Phone: [facility] Work Phone: 03-21-2005 influenza virus vacc ine, unspecified formulation Meagan Older 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 Work Phone: [facility] 02-15-2003 pneumococcal polysaccharide vaccine, 23 valent Meagan Lambert BOWLING BALL MOLDER.[facility] Work Phone: [facility] Work Phone: Payers Date Payer Category Payer Self-pay [id number] 2013 Private Health Insurance [employer] HU[employer] MEDICARE SUPPLEMENT [id number] 2013-Present [phone] [address] [address] [place] [address] Indemnity [id number] 2013 Private Health Insurance [id number] 2013 Private Health Insurance [id number] 2007 Medicare MEDICARE MEDICAR E A AND B [id number] 2007-Present [phone] [address] [address] [place] [address] Medicare [id number] 2007 Medicare [id number] 2007 Medicare [id number] Unknown [id number] Unknown [id number] Social History Date Type Detail Facility Start: 06-11-2021 Tobacco smoking status ARIS Unknown if ever smoked [facility] Work Phone: Start: 1940 Sex Assigned At Female [facility] Start: 03-12-2017 End: 11-13-2023 Tobacco smoking status NHIS Ex-smoker [facility] End: 1998 History of tobacco use Current smoker [facility] Start: 06-06-2021 End: 10-16-2024 Alcohol intake Current drinker of alcohol (finding) [facility] Start: 06-06-2021 End: 10-17-2022 Alcohol intake [facility] Start: 06-26-2020 End: 07-09-2022 History SDOH Alcohol Frequency 3 [facility] Start: 06-26-2020 End: 07-09-2022 History SDOH Alcohol Std Drinks 1 [facility] Start: 03-22-2016 History SDOH Alcohol Comment occasionally - bottle of wine share once monthly (02/2016) [facility] Start: 06-26-2020 End: 07-09-2022 History SDOH Social Connections Phone 2 [facility] Start: 06-26-2020 End: 07-09-2022 History SDOH Physical Activity DPW 0 [facility] Start: 06-26-2020 End: 07-09-2022 History SDOH Financial 5 [facility] Start: 06-26-2020 Education 17 [facility] Start: 05-27-2021 End: 11-16-2021 Exposure to SARS-CoV-2 (event) Not sure [facility] End: 1998 History of tobacco use Cigarette Smoker [facility] Work Phone: Start: 03-12-2017 End: 11-13-2023 Tobacco use and exposure Smokeless tobacco non-user [facility] Work Phone: Start: 07-09-2022 End: 10-17-2022 Social connection and isolation panel [facility] Do you belong to any clubs or organizations such as samaritan groups, unions, fraternal or athletic groups, or school groups? No [facility] Are you now , , , , never or living with a partner? [facility] How often to you hav e a drink containing alcohol? Monthly or less [facility] How many standard dr inks containing alcohol do you have on a typical day? 1 or 2 [facility] How often do you hav e 6 or more drinks on 1 occasion? Never [facility] Start: 02-24-2012 How hard is it for you to pay for the very basics like food, housing, medical care, and heating Not hard at all [facility] Do you feel stress - tense, restless, nervous, or anxious, or unable to sleep at night because your mind is troubled all the time - these days [OSQ] Only a little [facility] (I/We) worried wheth er (my/our) food would run out before (I/we) got money to buy more. Never true [facility] Start: 09-11-2018 Gender identity Identifies as female gender (finding) [facility] Start: 09-11-2018 Sexual orientation Heterosexual (finding) [facility] Do you belong to any clubs or organizations such as samaritan groups, unions, fraKUBOO or athletic groups, or school groups? Yes [facility] Do you feel stress - tense, restless, nervous, or anxious, or unable to sleep at night because your mind is troubled all the time - these days [OSQ] Rather much [facility] Functional Status Date Assessment Result Facility 07-20-2014 Are you deaf, or do you have serious difficulty hearing No 07/20/2014 11:38 AM Trevon Lester LPN No [facility] 07-20-2014 Are you blind, or do you have serious difficulty seeing, even when wearing glasses No 07/20/2014 11:38 AM Trevon Lester LPN No [facility] 07-20-2014 Do you have serious difficulty walking or climbing stairs No 07/20/2014 11:38 AM Trevon Lester LPN No [facility] 07-20-2014 Do you have difficul ty dressing or bathing No 07/20/2014 11:38 AM Trevon Lester LPN No [facility] 07-20-2014 Because of a physica l, mental, or emotional condition, do you have difficulty doing errands alone such as visiting a physician's office or shopping No 07/20/2014 11:38 AM Trevon Lester LPN No [facility] Mental Status Date Assessment Result Facility 07-20-2014 Because of a physica l, mental, or emotional condition, do you have serious difficulty concentrating, remembering, or making decisions No 07/20/2014 11:38 AM EDT Trevon Dorado LPN No [facility] Clinical Notes 01-23-2016 to 11-27-2024 Maria Esther Sosa, ANGEL - 11/27/2024 1:10 PM EDTTelephone Encounter - Yris Dickson LISW - 10/27/2024 9:51 AM EDTTelephone Encounter - Yris Dickson LISW - 10/27/2024 9:51 AM EDT Note Date & Type Note Facility 11-27-2024 Note HNO ID: [id number] Author: MARIA ESTHER SOSA RN Service: ? Author Type: Registered Nurse Type: Progress Notes Filed: 11/27/2024 13:22 Note Text: Value Based Care Coordination Chart Review Provider Action / FYI: Does not meet High Utilization CDM criteria Upon review of patient chart, the patient is excluded from Chronic Disease Management Patient is not a candidate for CDM at this time and placed in the following status: Deferred Action taken: No action needed . Maria Esther Sosa RN November 27, 2024 1:12 PM [facility] 11-27-2024 History of Presen t illness Narrative Value Based Care Coordination Chart Review Provider Action / FYI: Does not meet High Utilization CDM criteria Upon review of patient chart, the patient is excluded from Chronic Disease Management Patient is not a candidate for CDM at this time and placed in the following status: Deferred Action taken: No action needed . Maria Esther Sosa RN November 27, 2024 1:12 PM documented in this encounter [facility] 11-27-2024 Note Patient Outreach (AM BC) GERTRUDE FLORES ([id number]) 1940 F Date Time Provider Department 11/27/24 MARIA ESTHER SOSA [facility] During your visit today, we recorded the following information about you: Maria Esther Sosa RN 11/27/2024 1:22 PM Signed Value Based Care Coordination Chart Review Provider Action / FYI: Does not meet High Utilization CDM criteria Upon review of patient chart, the patient is excluded from Chronic Disease Management Patient is not a candidate for CDM at this time and placed in the following status: Deferred Action taken: No action needed . Maria Esther Sosa RN November 27, 2024 1:12 PM Allergies As of Date: 11/27/2024 Noted Allergy Reaction BACTRIM DS (SULFAMETHOXAZOLE-TRIM* 5 Comments: blisters in mouth, edema FURADANTIN (NITROFURANTOIN) 03/20/2005 4 - Hives MACROBID (NITROFURANTOIN MONOHYD/*03/20/2005 6 - Diarrhea PREMARIN (CONJUGATED ESTROGENS) 03/20/2005 PROVERA (MEDROXYPROGESTERONE) 03/20/2005 SULFAMETHOXAZOLE 06/11/2021 7 - Swelling TRIMETHOPRIM 06/11/2021 7 - Swelling Date Reviewed: 10/16/2024 Reviewed by: Dariela Morrell MA - Fully Assessed Reason for Visit: Transition Of Care [4074] Cmt: Chart review Prescriptions as of 11/27/2024 - levothyroxine (TIROSINT-SANJAY) 37.5 mcg/mL solution Take 3 mL (contents of 3 ampules) by mouth daily before breakfast. - Ferrous Gluconate 225 mg (27 mg iron) tab Take 1 tablet by mouth every afternoon. - amLODIPine (NORVASC) 2.5 mg tablet Take 1 tablet by mouth once daily. - apixaban (ELIQUIS) 5 mg tab(s) Take 1 tablet by mouth two times a day. - citalopram hydrobromide (CELEXA) 10 mg tablet Take 1 tablet by mouth once daily. - famotidine (PEPCID) 40 mg tablet Take 1 tablet by mouth every afternoon. - memantine (NAMENDA) 5 mg tablet Take 1 tablet by mouth two times a day. Please start by taking 5 mgs once a day and increase to taking 5 mgs 2 times a day - metoprolol succinate ER (TOPROL XL) 50 mg 24 hr tablet Take 1 tablet by mouth every afternoon. - pravastatin (PRAVACHOL) 20 mg tablet Take 1 tablet by mouth every afternoon. Problem List As Of Date 11/27/2024 Noted Resolved Gastroesophageal reflux disease without esophag* Acquired hypothyroidism [E03.9] 09/26/2005 Essential hypertension [I10] MELENA, BLOOD IN STOOL [K92.1] 08/12/2006 Pain in joint, lower leg [M25.569] 10/31/2006 01/23/2016 Other acquired deformity of toe [M20.5X9] 09/12/2010 01/23/2016 Ganglion of joint [M67.40] 09/12/2010 01/23/2016 Benign francis soft tissue [D21.9] 09/12/2010 Benign essential microscopic hematuria [R31.1] 02/22/2011 Osteoarthritis [M19.90] 07/10/2013 Medicare annual wellness visit, subsequent [Z00*01/23/2016 Memory loss [R41.3] 01/23/2016 08/12/2018 Balance problem [R26.89] 03/22/2016 B12 deficiency [E53.8] 03/22/2016 [place] (hard of hearing) [H91.90] 03/22/2016 Screening for colon cancer [Z12.11] 12/24/2016 PVC's (premature ventricular contractions) [I49*09/12/2018 Mixed hyperlipidemia [E78.2] 02/10/2019 CKD (chronic kidney disease) stage 3, GFR 30-59*08/12/2019 Chronic pain of left knee [M25.562, G89.29] 05/03/2023 Chronic knee instability, 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 TOPICS ADDRESSED: community resources CLINICAL ASSESSMENT: CBPM SW continues to try and connect Pt with in-home PCP. SW has left VM x3 with [facility] to inquire if [place] is in their territory/if they are accepting new Pts. SW spoke with Pt's spouse, Avila, on this date and provided update. Once SW hears from [facility], SW will communicate next steps to Pt/spouse. SW to follow. INTERVENTIONS/REFERRALS TO BE PROVIDED:Communicate pertinent medical/psychosocial information to Palliative Medicine team PLAN: Will continue to monitor patient/family coping and remain available for psychosocial intervention as patient/family system integrate illness trajectory and its impact on their lives JOSE Palacios [facility] Work Phone: 10-27-2024 Miscellaneous Notes PALLIATIVE MEDICINE SOCIAL WORK PROGRESS NOTE Date of Service: October 27, 2024 Gertrude Flores is being seen for an initial/follow up Palliative Care Social Work visit. TOPICS ADDRESSED: community resources CLINICAL ASSESSMENT: CBPM SW continues to try and connect Pt with in-home PCP. SW has left VM x3 with [facility] to inquire if [place] is in their territory/if they are accepting new Pts. SW spoke with Pt's spouse, Avila, on this date and provided update. Once SW hears from [facility], SW will communicate next steps to Pt/spouse. SW to follow. INTERVENTIONS/REFERRALS TO BE PROVIDED:Communicate pertinent medical/psychosocial information to Palliative Medicine team PLAN: Will continue to monitor patient/family coping and remain available for psychosocial intervention as patient/family system integrate illness trajectory and its impact on their lives JOSE Palacios documented in this encounter [facility] 10-23-2024 Telephone encounter Note PALLIATIVE MEDICINE SOCIAL WORK PROGRESS NOTE Date of Service: October 23, 2024 Gertrude Flores is being seen for an initial/follow up Palliative Care Social Work visit. Today's visit includes: spouse TOPICS ADDRESSED: community resources CLINICAL ASSESSMENT: CBPM SW received referral from physician that Pt is in need of in-home PCP. She is currently outside of service network for [facility]. SW reached out to Pranav Noel, Marnie Prabhakar [employer] for [facility] to inquire about alternative resources. With their assistance this SW left VM with both [facility] and [facility] to inquire about services. SW left VM for Pt's spouse on this date with update and SW's direct contact information. SW encouraged spouse/Pt to reach out, as needed. SW will continue to explore resources and notify Pt/spouse with update. INTERVENTIONS/REFERRALS TO BE PROVIDED:Communicate pertinent medical/psychosocial information to Palliative Medicine team PLAN: Will continue to monitor patient/family coping and remain available for psychosocial intervention as patient/family system integrate illness trajectory and its impact on their lives JOSE Palacios [facility] Work Phone: 10-23-2024 Miscellaneous Notes PALLIATIVE MEDICINE SOCIAL WORK PROGRESS NOTE Date of Service: October 23, 2024 Gertrude Flores is being seen for an initial/follow up Palliative Care Social Work visit. Today's visit includes: spouse TOPICS ADDRESSED: community resources CLINICAL ASSESSMENT: CBPM SW received referral from physician that Pt is in need of in-home PCP. She is currently outside of service network for [facility]. SW reached out to Pranav Noel and Heather Sipple [employer] for [facility] to inquire about alternative resources. With their assistance this SW left VM with both [facility] and [facility] to inquire about services. SW left VM for Pt's spouse on this date with update and SW's direct contact information. SW encouraged spouse/Pt to reach out, as needed. SW will continue to explore resources and notify Pt/spouse with update. INTERVENTIONS/REFERRALS TO BE PROVIDED:Communicate pertinent medical/psychosocial information to Palliative Medicine team PLAN: Will continue to monitor patient/family coping and remain available for psychosocial intervention as patient/family system integrate illness trajectory and its impact on their lives JOSE Palacios documented in this encounter [facility] 10-22-2024 Telephone encounter Note Medical Care at home referral was received for Primary Care services. Unfortunately the referral is declined at this time due to geographic location. Thank you for the referral. Patient discharged from Medical Care at Home: Discharge Reason: Other with Patient resides outside of the [facility] service area Discharge Date: 10/22/2024 Please cancel any pending orders-[employer] [facility], upcoming appointments with [facility] ROSALES Cerna [facility] 10-22-2024 Miscellaneous Notes Medical Care at home referral was received for Primary Care services. Unfortunately the referral is declined at this time due to geographic location. Thank you for the referral. Patient discharged from Medical Care at Home: Discharge Reason: Other with Patient resides outside of the [facility] service area Discharge Date: 10/22/2024 Please cancel any pending orders-[employer], upcoming appointments with [facility]AL[facility] MEDICAL CARE AT HOME [facility] REFERRAL Date Referral Received: 10/22/2024 Referral Source: [facility] Physician office Date of : 1940 Age: [age] year old PCP: Vanessa Her MD Visit address from [facility]: [address] [place] [address] Reason for referral: Ongoing Primary Care Name of Physician who gave the order: Dr. Shelbie Cm Primary Insurance Company: Payor: MEDICARE / Plan: MEDICARE A AND B / Product Type: Medicare / Primary Insurance ID Number: [id number] documented in this encounter [facility] 10-22-2024 Telephone encounter Note MEDICAL CARE AT HOME [facility] REFERRAL Date Referral Received: 10/22/2024 Referral Source: Physician office Date of : 1940 Age: [age] year old PCP: Vanessa Her MD Visit address from [facility]: [address] [place] [id number] Reason for referral: Ongoing Primary Care Name of Physician who gave the order: Dr. Shelbie Cm Primary Insurance Company: Payor: MEDICARE / Plan: MEDICARE A AND B / Product Type: Medicare / Primary Insurance ID Number: [id number] [facility] 10-21-2024 Note HNO ID: [id number] Author: SHELBIE CM MD Service: ? Author Type: Physician Type: Progress Notes Filed: 10/22/2024 13:52 Note Text: PALLIATIVE MEDICINE FAMILY MEETING / SERIOUS ILLNESS CONVERSATION IDENTIFICATION AND INTRODUCTION PARTICIPANTS:?Patient, spouse ? PURPOSE OF MEETING:??Serious illness conversation ? PATIENT/FAMILY UNDERSTANDING OF PATIENT'S MEDICAL CONDITION:?? Ms. Gertrude Flores is an 84 year old female with Alzheimer's Disease. Progressively deteriorating cognitive and functional statuses over the past several years. She ambulates independently. Notable recent episode of wandering outside of home. Requires assistance with ADLs as detailed below. Oral intake is good without signs of dysphagia or recent, pronounced weight loss. Challenges with administering meds - she frequently refuses to take. Additionally, she has refused to leave home for medical appointments, and he does not feel comfortable leaving her home alone if he has an appointment or errands to run. [place] FAST Score 6B - Needs help bathing Nutritional status: Stable Weight: 185 lbs () vs 180 lbs () Functional status: PPS: 50% Activities of Daily Living Walking: Independent. No, does not meet IAH Definition for Functional Dependency. Eating: Setup or clean-up assistance. Yes, this meets IAH Definition for Functional Dependency Bathing: Partial/Moderate Assistance. Yes, this meets IAH Definition for Functional Dependency Dressing: Partial/Moderate Assistance. Yes, this meets IAH Definition for Functional Dependency Toileting: Independent. No, does not meet IAH Definition for Functional Dependency. Transferring: Independent. No, does not meet IAH Definition for Functional Dependency. ? 1. They acknowledge her health is compromised by her complex, chronic conditions. 2. Their goals are maintenance-motivated. Exploring options to increase in-home support, including hired caregiving and in-home PCP. Message to PM SW to contact spouse by phone and further discuss community resources. Referral placed to [facility] PCP for in-home primary care. ? HEALTHCARE TEAM DISCUSSION AND INTERVENTIONS:?? Existence of Advance Directives: Yes, documentation or copy in medical record I spent 16 minutes in face to face time with the patient and family member discussing advance care planning and/or goals of care. We were clear about the voluntary nature of this discussion and the completion of advance directives. This time was exclusive of any other counseling provided during this time. ? TIME SPENT:??30 minutes FOLLOW UP? Her goals are established as outlined above. Palliative Medicine service will sign off at this time. Thank you for the opportunity to assist in the care of this patient. Please re-consult our service if further questions or concerns arise. SIGNATURE: Shelbie Cm MD PATIENT NAME: Gertrude Flores DATE: October 22, 2024 TIME: 1:00 PM PAGER/CONTACT #: [phone] [facility] 10-21-2024 History of Presen t illness Narrative PALLIATIVE MEDICINE FAMILY MEETING / SERIOUS ILLNESS CONVERSATION IDENTIFICATION AND INTRODUCTION PARTICIPANTS:?Patient, spouse ? PURPOSE OF MEETING:??Serious illness conversation ? PATIENT/FAMILY UNDERSTANDING OF PATIENT'S MEDICAL CONDITION:?? Ms. Gertrude Flores is an 84 year old female with Alzheimer's Disease. Progressively deteriorating cognitive and functional statuses over the past several years. She ambulates independently. Notable recent episode of wandering outside of home. Requires assistance with ADLs as detailed below. Oral intake is good without signs of dysphagia or recent, pronounced weight loss. Challenges with administering meds - she frequently refuses to take. Additionally, she has refused to leave home for medical appointments, and he does not feel comfortable leaving her home alone if he has an appointment or errands to run. [place] FAST Score 6B - Needs help bathing Nutritional status: Stable Weight: 185 lbs () vs 180 lbs () Functional status: PPS: 50% Activities of Daily Living Walking: Independent. No, does not meet [facility] Definition for Functional Dependency. Eating: Setup or clean-up assistance. Yes, this meets IAH Definition for Functional Dependency Bathing: Partial/Moderate Assistance. Yes, this meets IAH Definition for Functional Dependency Dressing: Partial/Moderate Assistance. Yes, this meets IAH Definition for Functional Dependency Toileting: Independent. No, does not meet IAH Definition for Functional Dependency. Transferring: Independent. No, does not meet IAH Definition for Functional Dependency. ? 1. They acknowledge her health is compromised by her complex, chronic conditions. 2. Their goals are maintenance-motivated. Exploring options to increase in-home support, including hired caregiving and in-home PCP. Message to PM SW to contact spouse by phone and further discuss community resources. Referral placed to [facility] PCP for in-home primary care. ? HEALTHCARE TEAM DISCUSSION AND INTERVENTIONS:?? Existence of Advance Directives: Yes, documentation or copy in medical record I spent 16 minutes in face to face time with the patient and family member discussing advance care planning and/or goals of care. We were clear about the voluntary nature of this discussion and the completion of advance directives. This time was exclusive of any other counseling provided during this time. ? TIME SPENT:??30 minutes FOLLOW UP? Her goals are established as outlined above. Palliative Medicine service will sign off at this time. Thank you for the opportunity to assist in the care of this patient. Please re-consult our service if further questions or concerns arise. SIGNATURE: Shelbie Cm MD PATIENT NAME: Gertrude Flores DATE: October 22, 2024 TIME: 1:00 PM PAGER/CONTACT #: [phone] documented in this encounter [facility] 10-20-2024 Telephone encounter Note Waiting for palliative care nursing to consult I think it is fine to just be on the levothyroxine as that is the only medication she is taking for the past 2 months. Regards, Vanessa Her MD [facility] 10-20-2024 Miscellaneous Notes Waiting for palliative care nursing to consult I think it is fine to just be on the levothyroxine as that is the only medication she is taking for the past 2 months. Regards, Vanessa Her MD Hello, We called patient to set up shipping on monthly med box. Avila informed a/c technician patient has about 2 months left of meds as she hasn't been taking regularly. stated he made provider aware of situation and is planning on working with office to simplify medication regimen. We will f/u with patient in 1 month. Nehal Sunshine RPh documented in this encounter [facility] 10-20-2024 Telephone encounter Note Hello, We called patient to set up shipping on monthly med box. Avila informed a/c technician patient has about 2 months left of meds as she hasn't been taking regularly. stated he made provider aware of situation and is planning on working with office to simplify medication regimen. We will f/u with patient in 1 month. Nehal Sunshine RPh [facility] 10-20-2024 Telephone encounter Note Shanon received message back that [facility] Palliative Care Dept, will be reaching out to patient/spouse to schedule consult with their dept. [facility] 10-20-2024 Miscellaneous Notes Shanon received message back that [facility] Palliative Care Dept, will be reaching out to patient/spouse to schedule consult with their dept. Shanon notes that referral was also sent to [facility] [facility] in regards to requesting palliative care services. This Sw also received consult for palliative care services. Sw will check with Home Care and see what their response is to setting up patient care services. documented in this encounter [facility] 10-19-2024 Telephone encounter Note Sw notes that referral was also sent to Home Care in regards to requesting palliative care services. This Sw also received consult for palliative care services. Sw will check with Home Care and see what their response is to setting up patient care services. [facility] 10-16-2024 Instructions Vanessa Her MD - 10/16/2024 10:40 AM EDT We discussed your current medication management: - You have only been taking your thyroid medication for the past two months and have not been taking your other prescribed medications, including your blood thinner and metoprolol. - We agreed to discontinue all medications except for your thyroid medication, which you should continue taking as prescribed. We discussed additional support for your care: - I recommend a referral to palliative care to help provide additional support at home. This can assist with managing your care and improving your quality of life. - Please let me know if you would like to proceed with this referral. We discussed your recent cochlear implant surgery: - Your cochlear implant surgery was completed successfully, and it should help improve your hearing. Please follow up with your surgeon as instructed for any post-operative care or adjustments. If you have any questions or concerns about your care plan, please contact our office. documented in this encounter [facility] 10-16-2024 Note HNO ID: [id number] Author: VANESSA HER MD Service: ? Author Type: Physician Type: Progress Notes Filed: 10/16/2024 10:49 Note Text: Gertrude Flores is a 84 year old female here for a Medicare wellness visit. Medicare Health Risk Assessment General Health Fair Exercise: Minutes/Day 0 min Exercise: Days/Week 0 days Alcohol: Daily Use Monthly or less Alcohol: Drinks/Day 1 or 2 Alcohol: 6 or more drinks Never Feel off balance No Concerns: Teeth/Dentures No Concerns: Sexual function Decline Troubled by feelings Stressed Frequency: Eating healthy diet Nearly every day ADLs requiring help Grocery shopping; Cooking; Housework; Bathing; Grooming; Dressing; Handling finances; Taking medications; Using the telephone; Driving Safety precautions in home/vehicle Yes Smoke, vape, chews tobacco No Difficulty hearing No Difficulty seeing No Current Providers Specialists: I have reviewed specialist-related care of the patient in the medical record. Medical/Family history review Reviewed and updated problem list, medical/surgical/family/social history, medications, and allergies. Opioid use review Opioid Medications (last 90 days) No data to display Anxiety/Depression screening PHQ-9 Score: 9 (Mild Depression) RLYEE-7 Score: 6 (Mild Anxiety) Recommendation: no further intervention at this time Cognitive screening 0 Cognitive screening reviewed and she needs to be in a Memory care unit Functional Observation Was the patient's Timed Up AND Go test unsteady or >= 12 seconds? No Advance Care Planning Surrogate decision maker and/or advance care plan documented Measurements BP 135/77 Pulse 66 Resp 16 Wt 81.9 kg (180 lb 9.6 oz) BMI 30.05 kg/m? Vision Screening: Follows with optometry/ophthalmology Assessment/Plan Medicare annual wellness visit, subsequent (Z00.00) - Counseled on healthy diet and regular exercise - Fall avoidance information provided - Personalized prevention plan provided Reason for Visit HPI Gertrude Flores is a 84-year-old female with a history of HTN, atrial fibrillation, and hypothyroidism, presenting for a follow-up visit. She is accompanied by her , who is providing history on her behalf. Gertrude has reportedly been non-adherent to her medication regimen for the past 2 months, only consistently taking her thyroid medication, which is dissolved in water. Her notes that she has been refusing to take her other medications, including her antihypertensive and anticoagulant, and has been found hiding pills under cushions. He expresses difficulty in managing her medication adherence and is seeking assistance. Gertrude denies any recent falls or injuries. She is able to ambulate and perform activities of daily living with assistance from her . She denies any new symptoms or changes in her health status. Social History Tobacco Use Smoking status: Former Current packs/day: 0.00 Types: Cigarettes Quit date: 1998 Years since quittin.5 Smokeless tobacco: Never Vaping Use Vaping status: Never Used Substance Use Topics Alcohol use: Yes Comment: occasionally - bottle of wine share once monthly (02/2016) Drug use: No Past medical history, appointments, medications, allergies reviewed. Pertinent Lab/Diagnostic Studies are reviewed and discussed today Current Outpatient Medications: levothyroxine (TIROSINT-SANJAY) 37.5 mcg/mL solution Ferrous Gluconate 225 mg (27 mg iron) tab amLODIPine (NORVASC) 2.5 mg tablet apixaban (ELIQUIS) 5 mg tab(s) citalopram hydrobromide (CELEXA) 10 mg tablet famotidine (PEPCID) 40 mg tablet memantine (NAMENDA) 5 mg tablet metoprolol succinate ER (TOPROL XL) 50 mg 24 hr tablet pravastatin (PRAVACHOL) 20 mg tablet [facility] Maintenance Medicare Annual Wellness Visit DTaP,Tdap,Td Vaccine(2 - Td or Tdap) Advance Directive Discussion@ Review Of Systems Musculoskeletal: (+) falls Physical Exam BP 135/77 Pulse 66 Resp 16 Wt 81.9 kg (180 lb 9.6 oz) BMI 30.05 kg/m? GENERAL: NAD, alert and oriented SKIN: unremarkable, no rash or skin lesions. HEAD: normocephalic EYES: PERRLA, EOMI, conjunctiva clear LUNGS: Clear to auscultation bilaterally, no wheezes/rhonchi/rales. HEART: Regular rate and rhythm, no murmurs. No ectopy. EXTREMITIES: Normal, No deformities, No skin discoloration, No edema. NEURO: Awake, alert and oriented x3, cranial nerves II-XII grossly intact, normal gait, no involuntary motions Assessment and Plan 1. Medicare annual wellness visit, subsequent (Z00.00) Patient is not adhering to medication regimen, only taking thyroid medication regularly. Refuses other medications, including blood thinner and metoprolol, for the past two months. - Discussed simplifying medication regimen to only include thyroid medication. - Referred to palliative care for additional support at home. 2. Severe late onset Alzheimer's dementia, unspecif (more content not included)... [facility] 10-16-2024 History of Presen t illness Narrative Images from the original note were not included. Gertrude Flores is a 84 year old female here for a Medicare wellness visit. Medicare Health Risk Assessment General Health Fair Exercise: Minutes/Day 0 min Exercise: Days/Week 0 days Alcohol: Daily Use Monthly or less Alcohol: Drinks/Day 1 or 2 Alcohol: 6 or more drinks Never Feel off balance No Concerns: Teeth/Dentures No Concerns: Sexual function Decline Troubled by feelings Stressed Frequency: Eating healthy diet Nearly every day ADLs requiring help Grocery shopping; Cooking; Housework; Bathing; Grooming; Dressing; Handling finances; Taking medications; Using the telephone; Driving Safety precautions in home/vehicle Yes Smoke, vape, chews tobacco No Difficulty hearing No Difficulty seeing No Current Providers Specialists: I have reviewed specialist-related care of the patient in the medical record. Medical/Family history review Reviewed and updated problem list, medical/surgical/family/social history, medications, and allergies. Opioid use review Opioid Medications (last 90 days) No data to display Anxiety/Depression screening PHQ-9 Score: 9 (Mild Depression) RYLEE-7 Score: 6 (Mild Anxiety) Recommendation: no further intervention at this time Cognitive screening 0 Cognitive screening reviewed and she needs to be in a Memory care unit Functional Observation Was the patient's Timed Up & Go test unsteady or >= 12 seconds? No Advance Care Planning Surrogate decision maker and/or advance care plan documented Measurements BP 135/77 Pulse 66 Resp 16 Wt 81.9 kg (180 lb 9.6 oz) BMI 30.05 kg/m Vision Screening: Follows with optometry/ophthalmology Assessment/Plan Medicare annual wellness visit, subsequent (Z00.00) - Counseled on healthy diet and regular exercise - Fall avoidance information provided - Personalized prevention plan provided Reason for Visit HPI Gertrude Flores is a 84-year-old female with a history of HTN, atrial fibrillation, and hypothyroidism, presenting for a follow-up visit. She is accompanied by her , who is providing history on her behalf. Gertrude has reportedly been non-adherent to her medication regimen for the past 2 months, only consistently taking her thyroid medication, which is dissolved in water. Her notes that she has been refusing to take her other medications, including her antihypertensive and anticoagulant, and has been found hiding pills under cushions. He expresses difficulty in managing her medication adherence and is seeking assistance. Gertrude denies any recent falls or injuries. She is able to ambulate and perform activities of daily living with assistance from her . She denies any new symptoms or changes in her health status. Social History Tobacco Use Smoking status: Former Current packs/day: 0.00 Types: Cigarettes Quit date: 1998 Years since quittin.5 Smokeless tobacco: Never Vaping Use Vaping status: Never Used Substance Use Topics Alcohol use: Yes Comment: occasionally - bottle of wine share once monthly (02/2016) Drug use: No Past medical history, appointments, medications, allergies reviewed. Pertinent Lab/Diagnostic Studies are reviewed and discussed today Current Outpatient Medications: levothyroxine (TIROSINT-SANJAY) 37.5 mcg/mL solution Ferrous Gluconate 225 mg (27 mg iron) tab amLODIPine (NORVASC) 2.5 mg tablet apixaban (ELIQUIS) 5 mg tab(s) citalopram hydrobromide (CELEXA) 10 mg tablet famotidine (PEPCID) 40 mg tablet memantine (NAMENDA) 5 mg tablet metoprolol succinate ER (TOPROL XL) 50 mg 24 hr tablet pravastatin (PRAVACHOL) 20 mg tablet Health Maintenance Medicare Annual Wellness Visit DTaP,Tdap,Td Vaccine(2 - Td or Tdap) Advance Directive Discussion@ Review Of Systems Musculoskeletal: (+) falls Physical Exam BP 135/77 Pulse 66 Resp 16 Wt 81.9 kg (180 lb 9.6 oz) BMI 30.05 kg/m GENERAL: NAD, alert and oriented SKIN: unremarkable, no rash or skin lesions. HEAD: normocephalic EYES: PERRLA, EOMI, conjunctiva clear LUNGS: Clear to auscultation bilaterally, no wheezes/rhonchi/rales. HEART: Regular rate and rhythm, no murmurs. No ectopy. EXTREMITIES: Normal, No deformities, No skin discoloration, No edema. NEURO: Awake, alert and oriented x3, cranial nerves II-XII grossly intact, normal gait, no involuntary motions Assessment and Plan 1. Medicare annual wellness visit, subsequent (Z00.00) Patient is not adhering to medication regimen, only taking thyroid medication regularly. Refuses other medications, including blood thinner and metoprolol, for the past two months. - Discussed simplifying medication regimen to only include thyroid medication. - Referred to palliative care for additional support at home. 2. Severe late onset Alzheimer's dementia, unspecified whether behavioral, psychotic, or mood disturbance or anxiety (HCC) (G30.1) Progressing with significant impact on medication adherence and daily functioning. - Referred to palliative care for comprehensive management and support. 3. Stage 3a chronic kidney disease (HCC) (N18.31) Not currently managed with medication due to non-adherence. - Monitor renal function as part of palliative care management. 4. Persistent atrial fibrillation (HCC) (I48.19) Not taking prescribed anticoagulant or metoprolol for the past two months. - Discussed risks of non-adherence to anticoagulation therapy. - Management to be addressed by palliative care team. 5. Screening for depression (Z13.31) Encounter for screening examination for other mental health and behavioral disorders (Z13.39) Voice recognition software was used to compose this office note. Please excuse any unintended typographical errors. Recording using [employer] software for draft documentation of the visit was discussed with the patient/authorized member services representative; all questions welcomed and answered. Patient/authorized member services representative agreed to proceed Vanessa Her MD documented in this encounter [facility] 09-14-2024 Note HNO ID: [id number] Author: MILANA DIETRICH MA Service: ? Author Type: Gate Person Type: Progress Notes Filed: 09/14/2024 09:42 Note Text: POPULATION HEALTH NAVIGATION OUTREACH Action/FYI Spoke to [place]. Schedule annual wellness exam Topic Due (Y or N) Comments Medicare Wellness y PCP Follow up Colorectal Cancer Screening Controlling Blood Pressure A1C HCC Flu Vaccine Care Everywhere Reviewed MyChart Activation Updated Appointment Note Reason for Outreach Care Gap/HCC or Scheduling Wellness Visits Care Gaps due: Medicare Annual Wellness Visit Patient Contacted: Spoke to patient/parent/or legal guardian Patient identified by name and : Yes Care Gap/HCC/Scheduling Wellness actions taken: Patient scheduled/pended orders: Medicare Annual Wellness Visit 10/16/2024 in [facility] with VANESSA HER - medicare wellness 03/03/2025 in [facility] with JUANA PRABHAKAR - follow up Navigation Signature: Milana Dietrich MA September 14, 2024 9:32 AM [facility] 09-14-2024 History of Presen t illness Narrative POPULATION HEALTH NAVIGATION OUTREACH Action/FYI Spoke to Schedule annual wellness exam Topic Due (Y or N) Comments Medicare Wellness y PCP Follow up Colorectal Cancer Screening Controlling Blood Pressure A1C HCC Flu Vaccine Care Everywhere Reviewed MyChart Activation Updated Appointment Note Reason for Outreach Care Gap/HCC or Scheduling Wellness Visits Care Gaps due: Medicare Annual Wellness Visit Patient Contacted: Spoke to patient/parent/or legal guardian Patient identified by name and : Yes Care Gap/HCC/Scheduling Wellness actions taken: Patient scheduled/pended orders: Medicare Annual Wellness Visit 10/16/2024 in [facility] with VANESSA HER - medicare wellness 03/03/2025 in [facility] with JUANA PRABHAKAR - follow up Navigation Signature: Milana Dietrich MA September 14, 2024 9:32 AM documented in this encounter [facility] 09-14-2024 Note Patient Outreach (NE TNAV) GERTRUDE FLORES ([id number]) 1940 F Date Time Provider Department 09/14/24 MILANA DIETRICH NETNAV During your visit today, we recorded the following information about you: Milana Dietrich MA 09/14/2024 9:42 AM Signed POPULATION HEALTH NAVIGATION OUTREACH Action/FYI Spoke to Schedule annual wellness exam Topic Due (Y or N) Comments Medicare Wellness y PCP Follow up Colorectal Cancer Screening Controlling Blood Pressure A1C HCC Flu Vaccine Care Everywhere Reviewed MyChart Activation Updated Appointment Note Reason for Outreach Care Gap/HCC or Scheduling Wellness Visits Care Gaps due: Medicare Annual Wellness Visit Patient Contacted: Spoke to patient/parent/or legal guardian Patient identified by name and : Yes Care Gap/HCC/Scheduling Wellness actions taken: Patient scheduled/pended orders: Medicare Annual Wellness Visit 10/16/2024 in [facility] with VANESSA HER - medicare wellness 03/03/2025 in [facility] with JUANA PRABHAKAR - follow up Navigation Signature: Milana Dietrich MA September 14, 2024 9:32 AM Allergies As of Date: 09/14/2024 Noted Allergy Reaction BACTRIM DS (SULFAMETHOXAZOLE-TRIM* 5 Comments: blisters in mouth, edema FURADANTIN (NITROFURANTOIN) 03/20/2005 4 - Hives MACROBID (NITROFURANTOIN MONOHYD/*03/20/2005 6 - Diarrhea PREMARIN (CONJUGATED ESTROGENS) 03/20/2005 PROVERA (MEDROXYPROGESTERONE) 03/20/2005 SULFAMETHOXAZOLE 06/11/2021 7 - Swelling TRIMETHOPRIM 06/11/2021 7 - Swelling Date Reviewed: 06/10/2024 Reviewed by: Elma Hoyos MA - Fully Assessed Reason for Visit: Population Health Navigation Outreach [3910] Cmt: ERIC WORKBECECY HARTMANN PCSA Prescriptions as of 09/14/2024 - levothyroxine (TIROSINT-SANJAY) 37.5 mcg/mL solution Take 3 mL (contents of 3 ampules) by mouth daily before breakfast. - Ferrous Gluconate 225 mg (27 mg iron) tab Take 1 tablet by mouth every afternoon. - amLODIPine (NORVASC) 2.5 mg tablet Take 1 tablet by mouth once daily. - apixaban (ELIQUIS) 5 mg tab(s) Take 1 tablet by mouth two times a day. - citalopram hydrobromide (CELEXA) 10 mg tablet Take 1 tablet by mouth once daily. - famotidine (PEPCID) 40 mg tablet Take 1 tablet by mouth every afternoon. - memantine (NAMENDA) 5 mg tablet Take 1 tablet by mouth two times a day. Please start by taking 5 mgs once a day and increase to taking 5 mgs 2 times a day - metoprolol succinate ER (TOPROL XL) 50 mg 24 hr tablet Take 1 tablet by mouth every afternoon. - pravastatin (PRAVACHOL) 20 mg tablet Take 1 tablet by mouth every afternoon. Problem List As Of Date 09/14/2024 Noted Resolved Gastroesophageal reflux disease without esophag* Acquired hypothyroidism [E03.9] 09/26/2005 Essential hypertension [I10] MELENA, BLOOD IN STOOL [K92.1] 08/12/2006 Pain in joint, lower leg [M25.569] 10/31/2006 01/23/2016 Other acquired deformity of toe [M20.5X9] 09/12/2010 01/23/2016 Ganglion of joint [M67.40] 09/12/2010 01/23/2016 Benign francis soft tissue [D21.9] 09/12/2010 Benign essential microscopic hematuria [R31.1] 02/22/2011 Osteoarthritis [M19.90] 07/10/2013 Medicare annual wellness visit, subsequent [Z00*01/23/2016 Memory loss [R41.3] 01/23/2016 08/12/2018 Balance problem [R26.89] 03/22/2016 B12 deficiency [E53.8] 03/22/2016 [place] (hard of hearing) [H91.90] 03/22/2016 Screening for colon cancer [Z12.11] 12/24/2016 PVC's (premature ventricular contractions) [I49*09/12/2018 Mixed hyperlipidemia [E78.2] 02/10/2019 CKD (chronic kidney disease) stage 3, GFR 30-59*08/12/2019 Chronic pain of left knee [M25.562, G89.29] 05/03/2023 Chronic knee instability, 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 Author Type: Physician Type: Progress Notes Filed: 08/21/2024 10:42 Note Text: Reason for Visit Care planning VICTORINA Loredo is a 84-year-old female with a history of dementia, presenting with medication noncompliance and worsening cognitive function. Her is present and providing history on her behalf. Gertrude's reports that she has been noncompliant with her medications, including Synthroid, antihypertensives, and anticoagulants. Despite his efforts to encourage her to take her medications, she has been hiding them under cushions and refusing to take them even when supervised. He expresses concern that her noncompliance with Synthroid, which she has been taking at a dose of 112 mcg for the past 10 years, may exacerbate her condition. He inquires about the possibility of administering Synthroid via injection or oral solution mixed with water. Gertrude has been experiencing worsening cognitive function, including hallucinations and delusions. She frequently mentions seeing people who are not present and expresses a desire to go home to mom and dad. She also believes that her sister, who 15 years ago, is in the house. These episodes are becoming more frequent and are causing significant distress to both Gertrude and her . Gertrude's reports that he is struggling to manage her care at home and is considering placing her in a memory care unit. He expresses feelings of frustration and anger, and is concerned about the impact of her condition on their relationship and his own mental health. He mentions that they have visited a facility with a memory care unit and are considering this option for her care. Social History Tobacco Use Smoking status: Former Current packs/day: 0.00 Types: Cigarettes Quit date: 1998 Years since quittin.4 Smokeless tobacco: Never Vaping Use Vaping status: Never Used Substance Use Topics Alcohol use: Yes Comment: occasionally - bottle of wine share once monthly (02/2016) Drug use: No Past medical history, appointments, medications, allergies reviewed. Pertinent Lab/Diagnostic Studies are reviewed and discussed today Current Outpatient Medications: levothyroxine (TIROSINT-SANJAY) 37.5 mcg/mL solution Ferrous Gluconate 225 mg (27 mg iron) tab amLODIPine (NORVASC) 2.5 mg tablet apixaban (ELIQUIS) 5 mg tab(s) citalopram hydrobromide (CELEXA) 10 mg tablet famotidine (PEPCID) 40 mg tablet memantine (NAMENDA) 5 mg tablet metoprolol succinate ER (TOPROL XL) 50 mg 24 hr tablet pravastatin (PRAVACHOL) 20 mg tablet Health Maintenance DTaP,Tdap,Td Vaccine(2 - Td or Tdap) RSV Vaccine(1 - 1-dose 75+ series) Covid-19 Vaccine( season) Advance Directive Discussion@ Review Of Systems Ears/Nose/Mouth/Throat: (+) hearing loss Psychiatric: (+) irritability Physical Exam Was deffered as patient was not available or refused Assessment and Plan 1. Medical non-compliance (Z91.199) Patient is non-compliant with medication regimen, including Synthroid, due to severe dementia. - Prescribed Synthroid oral solution 112 mcg/mL, 3 mL daily mixed in water, for 90 days with 3 refills. - Discussed the importance of medication adherence and potential consequences of non-compliance. 2. Dementia without behavioral disturbance (HCC) (F03.90) Severe dementia with hallucinations and inability to care for self. Caregiver is overwhelmed and unable to manage patient's needs at home. - Recommended placement in a memory care unit for appropriate management and safety. - Discussed the progression of dementia and the importance of advanced care planning, including DNR status. 3. Acquired hypothyroidism (E03.9) Previously stable on Synthroid 112 mcg daily for 10 years, currently non-compliant with medication. - Initiated Synthroid oral solution as above to ensure adequate thyroid hormone replacement. - Monitor for signs of hypothyroidism exacerbation. - advised not to force her to take medications if she refused to avoid altercation. - he thinks she will be able to drink the thyroid medication if given in water. Voice recognition software was used to compose this office note. Please excuse any unintended typographical errors. Recording using [employer] software for draft documentation of the visit was discussed with the patient/authorized member services representative; all questions welcomed and answered. Patient/authorized member services representative agreed to proceed Vanessa Her MD [facility] 08-21-2024 History of Presen t illness Narrative Reason for Visit Care planning HPI Gertrude is a 84-year-old female with a history of dementia, presenting with medication noncompliance and worsening cognitive function. Her is present and providing history on her behalf. Gertrude's reports that she has been noncompliant with her medications, including Synthroid, antihypertensives, and anticoagulants. Despite his efforts to encourage her to take her medications, she has been hiding them under cushions and refusing to take them even when supervised. He expresses concern that her noncompliance with Synthroid, which she has been taking at a dose of 112 mcg for the past 10 years, may exacerbate her condition. He inquires about the possibility of administering Synthroid via injection or oral solution mixed with water. Gertrude has been experiencing worsening cognitive function, including hallucinations and delusions. She frequently mentions seeing people who are not present and expresses a desire to go home to mom and dad. She also believes that her sister, who 15 years ago, is in the house. These episodes are becoming more frequent and are causing significant distress to both Gertrude and her . Gertrude's reports that he is struggling to manage her care at home and is considering placing her in a memory care unit. He expresses feelings of frustration and anger, and is concerned about the impact of her condition on their relationship and his own mental health. He mentions that they have visited a facility with a memory care unit and are considering this option for her care. Social History Tobacco Use Smoking status: Former Current packs/day: 0.00 Types: Cigarettes Quit date: 1998 Years since quittin.4 Smokeless tobacco: Never Vaping Use Vaping status: Never Used Substance Use Topics Alcohol use: Yes Comment: occasionally - bottle of wine share once monthly (02/2016) Drug use: No Past medical history, appointments, medications, allergies reviewed. Pertinent Lab/Diagnostic Studies are reviewed and discussed today Current Outpatient Medications: levothyroxine (TIROSINT-SANJAY) 37.5 mcg/mL solution Ferrous Gluconate 225 mg (27 mg iron) tab amLODIPine (NORVASC) 2.5 mg tablet apixaban (ELIQUIS) 5 mg tab(s) citalopram hydrobromide (CELEXA) 10 mg tablet famotidine (PEPCID) 40 mg tablet memantine (NAMENDA) 5 mg tablet metoprolol succinate ER (TOPROL XL) 50 mg 24 hr tablet pravastatin (PRAVACHOL) 20 mg tablet Health Maintenance DTaP,Tdap,Td Vaccine(2 - Td or Tdap) RSV Vaccine(1 - 1-dose 75+ series) Covid-19 Vaccine( season) Advance Directive Discussion@ Review Of Systems Ears/Nose/Mouth/Throat: (+) hearing loss Psychiatric: (+) irritability Physical Exam Was deffered as patient was not available or refused Assessment and Plan 1. Medical non-compliance (Z91.199) Patient is non-compliant with medication regimen, including Synthroid, due to severe dementia. - Prescribed Synthroid oral solution 112 mcg/mL, 3 mL daily mixed in water, for 90 days with 3 refills. - Discussed the importance of medication adherence and potential consequences of non-compliance. 2. Dementia without behavioral disturbance (HCC) (F03.90) Severe dementia with hallucinations and inability to care for self. Caregiver is overwhelmed and unable to manage patient's needs at home. - Recommended placement in a memory care unit for appropriate management and safety. - Discussed the progression of dementia and the importance of advanced care planning, including DNR status. 3. Acquired hypothyroidism (E03.9) Previously stable on Synthroid 112 mcg daily for 10 years, currently non-compliant with medication. - Initiated Synthroid oral solution as above to ensure adequate thyroid hormone replacement. - Monitor for signs of hypothyroidism exacerbation. - advised not to force her to take medications if she refused to avoid altercation. - he thinks she will be able to drink the thyroid medication if given in water. Voice recognition software was used to compose this office note. Please excuse any unintended typographical errors. Recording using [employer] software for draft documentation of the visit was discussed with the patient/authorized member services representative; all questions welcomed and answered. Patient/authorized member services representative agreed to proceed Vanessa Her MD documented in this encounter [facility] 08-21-2024 Instructions Vanessa Her MD - 08/21/2024 10:24 AM EDT We discussed Gertrude's dementia and care needs: - Gertrude's dementia has progressed to a severe stage, and she is unable to care for herself or take medications reliably. - I recommend transitioning Gertrude to a memory care unit for her safety and well-being. Memory care facilities have the skills and resources to manage her needs, including medication administration and behavioral challenges. - You should remain at home for as long as you are able to manage independently. If needed in the future, consider transitioning yourself to an assisted living facility. - Once Gertrude is in the memory care unit, you can visit her regularly and provide emotional support without compromising your own health. We discussed Gertrude's medications: - Gertrude is not taking her medications consistently. At this stage, it is acceptable to focus on comfort and safety rather than strict adherence to her medication regimen. - I have prescribed Synthroid (levothyroxine) in an oral solution form (112 mcg per 3 mL). Mix 3 mL of the solution in water and encourage her to drink it daily. This prescription has been sent to [facility] and includes a 90-day supply with three refills. - If Gertrude refuses to take the Synthroid solution or other medications, do not force her. It is okay to let her decline them. We discussed advanced care planning: - Gertrude's condition will continue to progress, and there is no cure for dementia. - Ensure that her living will and advanced directives are up to date. Gertrude should have a Do Not Resuscitate (DNR) order in place, as resuscitation would not improve her quality of life. - If Gertrude's condition worsens significantly, consider transitioning her to hospice care to focus on comfort and symptom management. Next steps: - Work on transitioning Gertrude to a memory care unit as soon as possible. - Monitor her response to the Synthroid oral solution. If she refuses it or if you have concerns, please contact me. - Call our office if you need further guidance or support. documented in this encounter [facility] 08-11-2024 Note HNO ID: [id number] Author: SERA LOPEZ RN Service: ? Author Type: Registered Nurse Type: Progress Notes Filed: 08/11/2024 16:18 Note Text: Gertrude was found wandering in the lobby of 6th floor medical office building, then proceeded to sit in the seat by the window. After multiple staff members realized she was not waiting for an appt they attempted to identify her and direct her to correct floor for possible appt. She was unable to answer simple questions related to why she was in the lobby, if she had an appt and even unable to answer her name at the beginning of the interaction. Gertrude was sitting in the lobby holding a folded shirt in her hands, no purse/wallet or ID. Patient was brought back to a private room, when I sat with her for a few minutes she was able to provide her name but was unable to recall her birthday or why she was in the building. She was very repetitive, speaking about my mother is my mother is a mother and I don't know why you want me on that plat. Security was called to the floor to attempt to help identify Gertrude. Security did check her pockets, she only had tissues and candy wrappers, no ID or wallet was found on her. She became more tearful, unable to complete a sentence and then was hallucinating about other people being in the room. She was fearful of someone trying to hurt other people. As we placed patient in a wheelchair as we were going to escort her to the ED for evaluation a staff member from the lobby came back and stated Rosangela was looking for her. Avila was in the lobby, he was on the 6th floor for an appt of his own and had left Gertrude in the lobby alone to wait during his appt. Avila identified Gertrude by birthday, verified address and we checked the chart to ensure information was accurate. Security assisted Gertrude and her to their car. [facility] 06-10-2024 Instructions Juana Prabhakar APRN.CNP - 06/10/2024 11:49 AM EDT Echo shows that the heart is strong >> normal heart pumping is normal. Continue all your same medications Stay hydrated Low salt diet Follow up in 1 year >> or sooner if needed documented in this encounter [facility] 06-10-2024 Note HNO ID: [id number] Author: JUANA PRABHAKAR APRN.BAHMAN Service: ? Author Type: Nurse Practitioner Type: Progress Notes Filed: 06/22/2024 12:55 Note Text: [facility] Department of Cardiovascular Medicine SECTION OF CLINICAL CARDIOLOGY OUTPATIENT VISIT DATE June 10, 2024 OUTPATIENT VISIT TYPE ESTABLISHED Elements of this note, including but not limited to HPI, ROS, Physical Exam, Assessment and Plan were copied and pasted from previous office visit notes completed within our department. Updates have been made where appropriate/noted and reflect current exam and medical decision making from date of this visit. Patient Name: Gertrude Flores : 1940 PRIMARY CARE PHYSICIAN: Vanessa Her MD CHIEF COMPLAINT: Patient presents with: CARD Follow Up 3 Month: ECHO 04/09/24 No new cardiac concerns Interval Hx: Ms. Flores comes for a follow up visit. The last office visit visit with Dr. Crocker was 03/09/2024. Patient with 0 hospitalizations or ER visits since last OV. Since last office visit patient has been feeling ok. TAking meds as ordered No GI / bleeding on Eliauis Rare palps Rare D/L No syncope No falls Amble to ambulate around the house >> up stairs Has some SOB No chest pain Not checking HR and BP at home helps with meds >> takes meds through the day Appetite is good Water is good Sleep is fair IMPRESSION/PLAN: Persistent Atrial Fibrillation - continue toprol 50 mg daily - anticoagulated with Eliquis 5 mg BID HTN - continue Amlodipine and Toprol HLD - continue current statin PVC's - controlled Patient instructions: Echo shows that the heart is strong >> normal heart pumping is normal. Continue all your same medications Stay hydrated Low salt diet Follow up in 1 year >> or sooner if needed Thank you very much for allowing me to assist in the care of Gertrude Flores. The above information was discussed at length and detail with the patient who verbalized an understanding of the plan and was given ample opportunity to ask questions. The appropriate follow up has been arranged. I have advised the patient to contact me if any questions/problems arise prior to the follow up. Juana Prabhakar APRN.[facility] Cardiology Nurse Practitioner Section of [facility] Cardiology [facility] Dept of Cardiovascular Medicine [facility] [place] [address] Office Office June 10, 2024 11:39 AM This note was partially generated using [employer] voice recognition system and may contain errors related to that system including grammar, punctuation, spelling, and words that may be inappropriate. CARDIAC STUDIES: LV Ejection Fraction (%) Date Value 04/09/2024 56 09/23/2018 52 10/03/2009 60 Last ECHO Result Conclusion ECHO Collected: 04/09/2024 1:46 PM (Final result) Impression: CONCLUSIONS: - Exam indication: AFIB - The left ventricle is normal in size. Left ventricular systolic function is normal. EF = 56 ? 5% (2D biplane) GLS= -18.6% Normal. - The right ventricle is normal in size. Right ventricular systolic function is normal. - The left atrial cavity is severely dilated. - The right atrial cavity is mildly dilated. - Mild (1+) tricuspid valve regurgitation. - Mild aortic sclerosis. - Exam was compared with the prior OUTSIDE echocardiographic exam performed on 09/23/2018. There is no significant change. * * * Final * * * Last EKG Result Conclusion ECG COMPLETE Collected: 03/09/2024 11:02 AM (Final result) Impression: ATRIAL FIBRILLATION MINIMAL VOLTAGE CRITERIA FOR LVH, MAY BE NORMAL VARIANT ( [place] product ) ABNORMAL ECG Confirmed by MD CROCKER GREGORY () on 03/11/2024 10:23:45 AM LABS: Sodium (mmol/L) Date Value 02/11/2024 141 04/19/2023 138 04/07/2021 144 06/28/2020 142 Potassium (mmol/L) Date Value 02/11/2024 4.2 04/19/2023 4.3 04/07/2021 4.1 06/28/2020 4.2 BUN (mg/dL) Date Value 02/11/2024 17 04/19/2023 17 07/10/2022 13 04/07/2021 13 06/28/2020 18 08/12/2018 16 12/04/2017 14 Creatinine (mg/dL) Date Value 02/11/2024 1.02 04/19/2023 1.05 07/10/2022 1.04 04/07/2021 1.06 06/28/2020 1.10 08/12/2018 1.13 12/04/2017 1.13 Magnesium (mg/dL) Date Value 08/12/2018 2.1 09/01/2007 2.3 Hemoglobin (g/dL) Date Value 05/19/2024 13.3 10/24/2023 10.9 04/07/2021 14.0 06/28/2020 14.8 No results found for: PROBNP No results found for: HSTNT Cholesterol, Total (mg/dL) Date Value 02/11/2024 149 04/07/2021 174 HDL Cholesterol (mg/dL) Date Value 02/11/2024 48 04/07/2021 51 Triglyceride (mg/dL) Date Value 02/11/2024 72 04/07/2021 88 LDL Cholesterol (mg/dL) Date Value 02/11/2024 87 04/07/2021 105 (more content not included)... [facility] 06-10-2024 History of Presen t illness Narrative Images from the original note were not included. [facility] Department of Cardiovascular Medicine SECTION OF CLINICAL CARDIOLOGY OUTPATIENT VISIT DATE June 10, 2024 OUTPATIENT VISIT TYPE ESTABLISHED Elements of this note, including but not limited to HPI, ROS, Physical Exam, Assessment and Plan were copied and pasted from previous office visit notes completed within our department. Updates have been made where appropriate/noted and reflect current exam and medical decision making from date of this visit. Patient Name: Gertrude Flores : 1940 PRIMARY CARE PHYSICIAN: Vanessa Her MD CHIEF COMPLAINT: Patient presents with: CARD Follow Up 3 Month: ECHO 04/09/24 No new cardiac concerns Interval Hx: Ms. Flores comes for a follow up visit. The last office visit visit with Dr. Crocker was 03/09/2024. Patient with 0 hospitalizations or ER visits since last OV. Since last office visit patient has been feeling ok. TAking meds as ordered No GI / bleeding on Eliauis Rare palps Rare D/L No syncope No falls Amble to ambulate around the house >> up stairs Has some SOB No chest pain Not checking HR and BP at home helps with meds >> takes meds through the day Appetite is good Water is good Sleep is fair IMPRESSION/PLAN: Persistent Atrial Fibrillation - continue toprol 50 mg daily - anticoagulated with Eliquis 5 mg BID HTN - continue Amlodipine and Toprol HLD - continue current statin PVC's - controlled Patient instructions: Echo shows that the heart is strong >> normal heart pumping is normal. Continue all your same medications Stay hydrated Low salt diet Follow up in 1 year >> or sooner if needed Thank you very much for allowing me to assist in the care of Gertrude Flores. The above information was discussed at length and detail with the patient who verbalized an understanding of the plan and was given ample opportunity to ask questions. The appropriate follow up has been arranged. I have advised the patient to contact me if any questions/problems arise prior to the follow up. Juana Prabhakar APRN.[facility] Cardiology Nurse Practitioner Section of [facility] Dept of Cardiovascular Medicine [facility] [place] [address] Office Office June 10, 2024 11:39 AM This note was partially generated using [employer] voice recognition system and may contain errors related to that system including grammar, punctuation, spelling, and words that may be inappropriate. CARDIAC STUDIES: LV Ejection Fraction (%) Date Value 04/09/2024 56 09/23/2018 52 10/03/2009 60 Last ECHO Result Conclusion ECHO Collected: 04/09/2024 1:46 PM (Final result) Impression: CONCLUSIONS: - Exam indication: AFIB - The left ventricle is normal in size. Left ventricular systolic function is normal. EF = 56 5% (2D biplane) GLS= -18.6% Normal. - The right ventricle is normal in size. Right ventricular systolic function is normal. - The left atrial cavity is severely dilated. - The right atrial cavity is mildly dilated. - Mild (1+) tricuspid valve regurgitation. - Mild aortic sclerosis. - Exam was compared with the prior OUTSIDE echocardiographic exam performed on 09/23/2018. There is no significant change. * * * Final * * * Last EKG Result Conclusion ECG COMPLETE Collected: 03/09/2024 11:02 AM (Final result) Impression: ATRIAL FIBRILLATION MINIMAL VOLTAGE CRITERIA FOR LVH, MAY BE NORMAL VARIANT ( [place] product ) ABNORMAL ECG Confirmed by MD CROCKER GREGORY () on 03/11/2024 10:23:45 AM LABS: Sodium (mmol/L) Date Value 02/11/2024 141 04/19/2023 138 04/07/2021 144 06/28/2020 142 Potassium (mmol/L) Date Value 02/11/2024 4.2 04/19/2023 4.3 04/07/2021 4.1 06/28/2020 4.2 BUN (mg/dL) Date Value 02/11/2024 17 04/19/2023 17 07/10/2022 13 04/07/2021 13 06/28/2020 18 08/12/2018 16 12/04/2017 14 Creatinine (mg/dL) Date Value 02/11/2024 1.02 04/19/2023 1.05 07/10/2022 1.04 04/07/2021 1.06 06/28/2020 1.10 08/12/2018 1.13 12/04/2017 1.13 Magnesium (mg/dL) Date Value 08/12/2018 2.1 09/01/2007 2.3 Hemoglobin (g/dL) Date Value 05/19/2024 13.3 10/24/2023 10.9 04/07/2021 14.0 06/28/2020 14.8 No results found for: PROBNP No results found for: HSTNT Cholesterol, Total (mg/dL) Date Value 02/11/2024 149 04/07/2021 174 HDL Cholesterol (mg/dL) Date Value 02/11/2024 48 04/07/2021 51 Triglyceride (mg/dL) Date Value 02/11/2024 72 04/07/2021 88 LDL Cholesterol (mg/dL) Date Value 02/11/2024 87 04/07/2021 105 TSH Date Value 05/19/2024 2.920 mIU/L 04/07/2021 1.080 uU/mL No results found for: INR There were no tests performed for review. PHYSICAL EXAMINATION: Vitals: BP 132/74 Pulse 61 Ht 165.1 cm (5' 5) Wt 83 kg (182 lb 15.7 oz) SpO2 99% BMI 30.45 kg/m General: Well appearing, in no acute distress. Skin: No clubbing, no cyanosis. Eyes: Extra ocular movements intact Oropharynx: Teeth in good repair. Neck: No jugular venous distention, no carotid bruits, carotids have a normal upstroke, no palpable thyromegaly. Lungs: Clear to auscultation bilaterally, no wheezing or rhonchi. Heart: Irregularly irregular rhythm, PMI not displaced, S1, S2 normal, no S3, no S4, no heaves, no rub and no murmur. Abdomen: Soft, nontender, bowel sounds normal, no palpable organomegaly, no bruits. Extremities: No peripheral edema . Grade 2/4 distal pulses bilaterally. Neuro: Oriented to person, place and time, alert, cooperative, gait coordinated. ALLERGIES: Bactrim Ds [Sulfamethoxazole-Trimethoprim], Furadantin [Nitrofurantoin], Macrobid [Nitrofurantoin Monohyd/M-Cryst], Premarin [Conjugated Estrogens], Provera [Medroxyprogesterone], Sulfamethoxazole, and Trimethoprim PAST MEDICAL HISTORY: 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 colon polyps Dementia without behavioral disturbance (HCC) Diverticulitis of colon with hemorrhage Esophageal reflux GERD Hemorrhage of gastrointestinal tract, unspecified 05/23/2001 Internal hemorrhoids without mention of complication 05/23/2001 Unspecified essential hypertension SOCIAL HISTORY: Social History Tobacco Use Smoking status: Former Current packs/day: 0.00 Types: Cigarettes Quit date: 1998 Years since quittin.2 Smokeless tobacco: Never Vaping Use Vaping status: Never Used Substance Use Topics Alcohol use: Yes Comment: occasionally - bottle of wine share once monthly (02/2016) Drug use: No FAMILY HISTORY: FAMILY HISTORY Problem Relation Age of Onset Alzheimer's Disease Father 81 Thyroid Sister colitis Colon Cancer No Family History I have confirmed and edited as necessary, the PFSH and ROS obtained by others. Juana Prabhakar APRN.[employer] CURRENT MEDICATIONS: Current Outpatient Medications Medication Sig amLODIPine (NORVASC) 2.5 mg tablet Take 1 tablet by mouth once daily. apixaban (ELIQUIS) 5 mg tab(s) Take 1 tablet by mouth two times a day. citalopram hydrobromide (CELEXA) 10 mg tablet Take 1 tablet by mouth once daily. famotidine (PEPCID) 40 mg tablet Take 1 tablet by mouth every afternoon. Ferrous Gluconate 225 mg (27 mg iron) tab Take 1 tablet by mouth daily with breakfast. levothyroxine (LEVOXYL) 112 mcg tablet Take 1 tablet by mouth once daily. memantine (NAMENDA) 5 mg tablet Take 1 tablet by mouth two times a day. Please start by taking 5 mgs once a day and increase to taking 5 mgs 2 times a day metoprolol succinate ER (TOPROL XL) 50 mg 24 hr tablet Take 1 tablet by mouth every afternoon. pravastatin (PRAVACHOL) 20 mg tablet Take 1 tablet by mouth every afternoon. No current facility-administered medications for this visit. documented in this encounter [facility] 05-19-2024 Note HNO ID: [id number] Author: VANESSA HER MD Service: ? Author Type: Physician Type: Progress Notes Filed: 05/19/2024 13:22 Note Text: Reason for Visit Gertrude Flores is a 84 year oldfemale who presents here Patient presents with: Follow Up Health Maintenance DTaP,Tdap,Td Vaccine(2 - Td or Tdap) RSV Vaccine(1 - 1-dose 75+ series) Influenza Vaccine(1) Covid-19 Vaccine( season) Advance Directive Discussion HPI She has been refusing to take medication, she thinks it is not necessary so has been giving a little push back. wants some suggestions and help with that situation. We emphasized the importance of medication . Also discussed switching zoloft to celexa to see if that would help her more. Recently has had some anemia, in labs 6 months ago, we need to follow that up. She is not exercising like she did in the past. Has trouble with a toe which pains due to nail issues, . 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 Working on getting that fixed. They think the adherence pharmacy would help take off some of the pain that they are having. No problem-specific Assessment AND Plan notes found for this encounter. 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 colon polyps Dementia without behavioral disturbance (HCC) Diverticulitis of colon with hemorrhage Esophageal reflux GERD Hemorrhage of gastrointestinal tract, unspecified 05/23/2001 Internal hemorrhoids without mention of complication 05/23/2001 Unspecified essential hypertension PAST SURGICAL HISTORY Procedure Laterality Date COLONOSCOPY 01/08/2017 COLONOSCOPY FLX DX W/COLLJ SPEC WHEN PFRMD ,05/24 Colonoscopy COLONOSCOPY FLX DX W/COLLJ SPEC WHEN PFRMD 08/23/2006 diverticulosis LAPAROSCOPY SURG CHOLECYSTECTOMY 2001 Cholecystectomy, lap PAST SURGICAL HISTORY OF 01/2007 left knee meniscus repair SALPINGO-OOPHORECTOMY COMPL/PRTL UNI/BI SPX Salpingo-oophorectomy b/l TOTAL ABDOMINAL HYSTERECT W/WO RMVL TUBE OVARY Hysterectomy, SHEN FAMILY HISTORY Problem Relation Age of Onset Alzheimer's Disease Father 81 Thyroid Sister colitis Colon Cancer No Family History Social History Tobacco Use Smoking status: Former Current packs/day: 0.00 Types: Cigarettes Quit date: 1998 Years since quittin.1 Smokeless tobacco: Never Vaping Use Vaping status: Never Used Substance Use Topics Alcohol use: Yes Comment: occasionally - bottle of wine share once monthly (02/2016) Drug use: No Past medical history, appointments, medications, allergies reviewed. Pertinent Lab/Diagnostic Studies are reviewed and discussed today Current Outpatient Medications: Ipratropium [place] (ATROVENT) 21 mcg (0.03 %) nasal spray famotidine (PEPCID) 40 mg tablet metoprolol succinate ER (TOPROL XL) 50 mg 24 hr tablet pravastatin (PRAVACHOL) 20 mg tablet apixaban (ELIQUIS) 5 mg tab(s) amLODIPine (NORVASC) 2.5 mg tablet Ferrous Gluconate 225 mg (27 mg iron) tab levothyroxine (LEVOXYL) 112 mcg tablet sertraline (ZOLOFT) 50 mg tablet memantine (NAMENDA) 5 mg tablet Ilcalwfpncefp-Jpomtvfx-Omjhne (CENTRUM SILVER) Tab Review of Systems CONSTITUTIONAL: No fevers, chills night sweats, unintended weight loss CARDIOVASCULAR: No chest pain, dyspnea, palpitations, orthopnea, PND, ankle edema. PULM: No dyspnea, unexplained cough. GI: No dysphagia/odynophagia, problematic reflux, constipation, diarrhea, changes in stool habits, hematochezia, melena. : No new urinary complaints, including dysuria, gross hematuria or pyuria. NEURO: No new balance problems, peripheral weakness/paresthesias or numbness of concern. Physical Exam BP 138/88 Pulse 67 Ht 165.1 cm (5' 5) Wt 82.6 kg (182 lb) SpO2 98% BMI 30.29 kg/m? General appearance: Well appearing, alert, in no acute distress, well nourished. Skin: Skin color, texture, turgor normal, no suspicious rashes or lesions Head: Normocephalic, no masses, lesions, tenderness or abnormalities Eyes: Anicteric sclera. Pupils are equally round and reactive to light. Extraocular movements are intact. Lungs:Normal breathing efforts, Lungs clear to auscultation. No wheezing, rhonchi, rales Heart: RRR without murmur, gallop, or rubs. Extremities: No deformities, edema, skin discoloration, clubbing or cyanosis. Good capillary refill. ASSESSMENT/PLAN: 1. Acquired hypothyroidism - ICD9: 244.9, ICD10: E03.9 (primary diagnosis) - Instructed patient on importance of taking on an empty stomach either first thing in the morning or at bedtime. - THYROID STIMULATING HORMONE - T4 FREE/FREE THYROXINE 2. Dementia with behavioral disturbance (HCC) - ICD9: 294.21, ICD10: F03.918 Changing the zoloft to celexa as it may help her better with the paranoia - MEMANTINE 5 MG TABLET - CITALOPRAM 10 MG (more content not included)... [facility] 05-19-2024 History of Presen t illness Narrative Reason for Visit Gertrude Flores is a 84 year oldfemale who presents here Patient presents with: Follow Up Health Maintenance DTaP,Tdap,Td Vaccine(2 - Td or Tdap) RSV Vaccine(1 - 1-dose 75+ series) Influenza Vaccine(1) Covid-19 Vaccine( season) Advance Directive Discussion HPI She has been refusing to take medication, she thinks it is not necessary so has been giving a little push back. wants some suggestions and help with that situation. We emphasized the importance of medication . Also discussed switching zoloft to celexa to see if that would help her more. Recently has had some anemia, in labs 6 months ago, we need to follow that up. She is not exercising like she did in the past. Has trouble with a toe which pains due to nail issues, . 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 Working on getting that fixed. They think the adherence pharmacy would help take off some of the pain that they are having. No problem-specific Assessment & Plan notes found for this encounter. 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 colon polyps Dementia without behavioral disturbance (HCC) Diverticulitis of colon with hemorrhage Esophageal reflux GERD Hemorrhage of gastrointestinal tract, unspecified 05/23/2001 Internal hemorrhoids without mention of complication 05/23/2001 Unspecified essential hypertension PAST SURGICAL HISTORY Procedure Laterality Date COLONOSCOPY 01/08/2017 COLONOSCOPY FLX DX W/COLLJ SPEC WHEN PFRMD ,05/24 Colonoscopy COLONOSCOPY FLX DX W/COLLJ SPEC WHEN PFRMD 08/23/2006 diverticulosis LAPAROSCOPY SURG CHOLECYSTECTOMY 2001 Cholecystectomy, lap PAST SURGICAL HISTORY OF 01/2007 left knee meniscus repair SALPINGO-OOPHORECTOMY COMPL/PRTL UNI/BI SPX Salpingo-oophorectomy b/l TOTAL ABDOMINAL HYSTERECT W/WO RMVL TUBE OVARY Hysterectomy, SHEN FAMILY HISTORY Problem Relation Age of Onset Alzheimer's Disease Father 81 Thyroid Sister colitis Colon Cancer No Family History Social History Tobacco Use Smoking status: Former Current packs/day: 0.00 Types: Cigarettes Quit date: 1998 Years since quittin.1 Smokeless tobacco: Never Vaping Use Vaping status: Never Used Substance Use Topics Alcohol use: Yes Comment: occasionally - bottle of wine share once monthly (02/2016) Drug use: No Past medical history, appointments, medications, allergies reviewed. Pertinent Lab/Diagnostic Studies are reviewed and discussed today Current Outpatient Medications: Ipratropium [place] (ATROVENT) 21 mcg (0.03 %) nasal spray famotidine (PEPCID) 40 mg tablet metoprolol succinate ER (TOPROL XL) 50 mg 24 hr tablet pravastatin (PRAVACHOL) 20 mg tablet apixaban (ELIQUIS) 5 mg tab(s) amLODIPine (NORVASC) 2.5 mg tablet Ferrous Gluconate 225 mg (27 mg iron) tab levothyroxine (LEVOXYL) 112 mcg tablet sertraline (ZOLOFT) 50 mg tablet memantine (NAMENDA) 5 mg tablet Jomkehbtdzhmx-Ynwdmfib-Gvsgqh (CENTRUM SILVER) Tab Review of Systems CONSTITUTIONAL: No fevers, chills night sweats, unintended weight loss CARDIOVASCULAR: No chest pain, dyspnea, palpitations, orthopnea, PND, ankle edema. PULM: No dyspnea, unexplained cough. GI: No dysphagia/odynophagia, problematic reflux, constipation, diarrhea, changes in stool habits, hematochezia, melena. : No new urinary complaints, including dysuria, gross hematuria or pyuria. NEURO: No new balance problems, peripheral weakness/paresthesias or numbness of concern. Physical Exam BP 138/88 Pulse 67 Ht 165.1 cm (5' 5) Wt 82.6 kg (182 lb) SpO2 98% BMI 30.29 kg/m General appearance: Well appearing, alert, in no acute distress, well nourished. Skin: Skin color, texture, turgor normal, no suspicious rashes or lesions Head: Normocephalic, no masses, lesions, tenderness or abnormalities Eyes: Anicteric sclera. Pupils are equally round and reactive to light. Extraocular movements are intact. Lungs:Normal breathing efforts, Lungs clear to auscultation. No wheezing, rhonchi, rales Heart: RRR without murmur, gallop, or rubs. Extremities: No deformities, edema, skin discoloration, clubbing or cyanosis. Good capillary refill. ASSESSMENT/PLAN: 1. Acquired hypothyroidism - ICD9: 244.9, ICD10: E03.9 (primary diagnosis) - Instructed patient on importance of taking on an empty stomach either first thing in the morning or at bedtime. - THYROID STIMULATING HORMONE - T4 FREE/FREE THYROXINE 2. Dementia with behavioral disturbance (HCC) - ICD9: 294.21, ICD10: F03.918 Changing the zoloft to celexa as it may help her better with the paranoia - MEMANTINE 5 MG TABLET - CITALOPRAM 10 MG TABLET - REFERRAL FOR ADHERENCE PACKAGING PROGRAM 3. Essential hypertension - ICD9: 401.9, ICD10: I10 - Controlled - Recommend home blood pressure monitoring, to bring results to next visit - Encouraged sodium restriction, DASH or Mediterranean diet - Recommend regular aerobic exercise - AMLODIPINE 2.5 MG TABLET 4. Anemia, unspecified type - ICD9: 285.9, ICD10: D64.9 - COMPLETE BLOOD COUNT AND DIFFERENTIAL 5. Stage 3a chronic kidney disease (HCC) - ICD9: 585.3, ICD10: N18.31 Recheck labs 6. Caregiver stress - ICD9: V61.49, ICD10: Z63.6 - REFERRAL FOR ADHERENCE PACKAGING PROGRAM Vanessa Her MD Voice recognition software was used to compose this office note. Please excuse any unintended typographical errors. [place] documented in this encounter [facility] 04-07-2024 Telephone encounter Note Patient has been identified by name and date of : Yes Patient phones for refill(s): Requested Prescriptions Pending Prescriptions Disp Refills Ipratropium [place] (ATROVENT) 21 mcg (0.03 %) nasal spray 30 mL 2 Sig: Use 2 Sprays in the nose every 12 hours. Date of last office visit in primary care: 02/17/2024 Date of next office visit in primary care: 05/19/2024 Please advise. Thank you. Maryan Johnson LPN. [facility] 04-07-2024 Miscellaneous Notes Patient has been identified by name and date of : Yes Patient phones for refill(s): Requested Prescriptions Pending Prescriptions Disp Refills Ipratropium [place] (ATROVENT) 21 mcg (0.03 %) nasal spray 30 mL 2 Sig: Use 2 Sprays in the nose every 12 hours. Date of last office visit in primary care: 02/17/2024 Date of next office visit in primary care: 05/19/2024 Please advise. Thank you. Maryan Johnson LPN. documented in this encounter [facility] 03-09-2024 Note HNO ID: [id number] Author: ROSSY CROCKER, DO Service: ? Author Type: Physician Type: Progress Notes Filed: 03/09/2024 12:01 Note Text: [facility] CARDIOLOGY [facility] OUTPATIENT VISIT DATE March 09, 2024 PRIMARY CARE PHYSICIAN: Vanessa Her [address] [place] [address] HISTORY OF PRESENT ILLNESS: Ms. Flores is a 83 year old female. The patient returns for follow-up secondary to history of PVCs as well as hypertension and hyperlipidemia. She has noted to have early dementia. Her accompanies her again today. She and her both had a recent day where their heart rate and blood pressures were elevated but has since resolved. Unfortunately today she appears to be in new onset atrial fibrillation on her EKG thankfully with a controlled ventricular response. She may be slightly more fatigued than previous. She denies chest discomfort, dyspnea, orthopnea, paroxysmal nocturnal dyspnea, palpitations, near-syncope or syncope. EKG performed today demonstrates atrial fibrillation with a controlled ventricular response of 83 bpm. PLAN AND RECOMMENDATIONS: The patient remains stable without symptoms that would suggest angina nor cardiac decompensation on her current optimal medical therapy. She unfortunately has new onset atrial fibrillation and require oral anticoagulation with Eliquis. She will get this immediately. We will update an echocardiogram to reevaluate her structure and function. We will follow-up with her in approximately 3 months time for reevaluation. We may consider elective cardioversion however she appears relatively asymptomatic. Dietary and lifestyle modification was reemphasized to facilitate risk factor reduction. Vitals: BP 126/74 Pulse 83 Ht 165.1 cm (5' 5) Wt 77.7 kg (171 lb 4.8 oz) SpO2 98% BMI 28.51 kg/m? Physical Exam Vitals reviewed. Constitutional: General: She is not in acute distress. Appearance: Normal appearance. She is well-developed. HENT: Head: Normocephalic and atraumatic. Nose: Nose normal. Eyes: General: No scleral icterus. Right eye: No discharge. Left eye: No discharge. Pupils: Pupils are equal, round, and reactive to light. Neck: Thyroid: No thyromegaly. Vascular: No carotid bruit or JVD. Cardiovascular: Rate and Rhythm: Normal rate. Rhythm irregular. Heart sounds: Normal heart sounds. No murmur heard. No friction rub. No gallop. Pulmonary: Effort: Pulmonary effort is normal. No respiratory distress. Breath sounds: Normal breath sounds. No wheezing or rales. Abdominal: General: Bowel sounds are normal. Palpations: Abdomen is soft. Musculoskeletal: General: Normal range of motion. Cervical back: Normal range of motion and neck supple. Skin: General: Skin is warm and dry. Capillary Refill: Capillary refill takes less than 2 seconds. Coloration: Skin is not pale. Neurological: Mental Status: She is alert and oriented to person, place, and time. Cranial Nerves: No cranial nerve deficit. Psychiatric: Behavior: Behavior normal. Thought Content: Thought content normal. Judgment: Judgment normal. Review of Systems Constitutional: Positive for fatigue. Negative for activity change. HENT: Negative for ear pain and facial swelling. Eyes: Negative for pain and discharge. Respiratory: Negative for chest tightness and shortness of breath. Cardiovascular: Negative for chest pain, palpitations and leg swelling. Gastrointestinal: Negative for abdominal pain, blood in stool, nausea and vomiting. Endocrine: Negative for cold intolerance and heat intolerance. Genitourinary: Negative for frequency and hematuria. Musculoskeletal: Negative for arthralgias and gait problem. Skin: Negative for color change, pallor and rash. Allergic/Immunologic: Negative for immunocompromised state. Neurological: Negative for dizziness, syncope, light-headedness and headaches. Hematological: Negative for adenopathy. Does not bruise/bleed easily. Psychiatric/Behavioral: Negative for confusion. The patient is not nervous/anxious. 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 colon polyps Dementia without behavioral disturbance (HCC) Diverticulitis of colon with hemorrhage Esophageal reflux GERD Hemorrhage of gastrointestinal tract, unspecified 05/23/2001 Internal hemorrhoids without mention of complication 05/23/2001 Unspecified essential hypertension PAST SURGICAL HISTORY Procedure Laterality Date COLONOSCOPY 01/08/2017 COLONOSCOPY FLX DX W/COLLJ SPEC WHEN PFRMD ,05/24 Colonoscopy COLONOSCOPY FLX DX W/COLLJ SPEC WHEN PFRMD 08/23/2006 diverticulosis LAPAROSCOPY SURG CHOLECYSTECTOMY 2001 Cholecystectomy, lap PAST SURGICAL HISTORY OF 01/2007 left knee meniscus repair SALPINGO-OOPHORECTOMY COMPL/ (more content not included)... [facility] 03-09-2024 History of Presen t illness Narrative Images from the original note were not included. [facility] OUTPATIENT VISIT DATE March 09, 2024 PRIMARY CARE PHYSICIAN: Vanessa Her [address] [place] [address] HISTORY OF PRESENT ILLNESS: Ms. Flores is a 83 year old female. The patient returns for follow-up secondary to history of PVCs as well as hypertension and hyperlipidemia. She has noted to have early dementia. Her accompanies her again today. She and her both had a recent day where their heart rate and blood pressures were elevated but has since resolved. Unfortunately today she appears to be in new onset atrial fibrillation on her EKG thankfully with a controlled ventricular response. She may be slightly more fatigued than previous. She denies chest discomfort, dyspnea, orthopnea, paroxysmal nocturnal dyspnea, palpitations, near-syncope or syncope. EKG performed today demonstrates atrial fibrillation with a controlled ventricular response of 83 bpm. PLAN AND RECOMMENDATIONS: The patient remains stable without symptoms that would suggest angina nor cardiac decompensation on her current optimal medical therapy. She unfortunately has new onset atrial fibrillation and require oral anticoagulation with Eliquis. She will get this immediately. We will update an echocardiogram to reevaluate her structure and function. We will follow-up with her in approximately 3 months time for reevaluation. We may consider elective cardioversion however she appears relatively asymptomatic. Dietary and lifestyle modification was reemphasized to facilitate risk factor reduction. Vitals: BP 126/74 Pulse 83 Ht 165.1 cm (5' 5) Wt 77.7 kg (171 lb 4.8 oz) SpO2 98% BMI 28.51 kg/m Physical Exam Vitals reviewed. Constitutional: General: She is not in acute distress. Appearance: Normal appearance. She is well-developed. HENT: Head: Normocephalic and atraumatic. Nose: Nose normal. Eyes: General: No scleral icterus. Right eye: No discharge. Left eye: No discharge. Pupils: Pupils are equal, round, and reactive to light. Neck: Thyroid: No thyromegaly. Vascular: No carotid bruit or JVD. Cardiovascular: Rate and Rhythm: Normal rate. Rhythm irregular. Heart sounds: Normal heart sounds. No murmur heard. No friction rub. No gallop. Pulmonary: Effort: Pulmonary effort is normal. No respiratory distress. Breath sounds: Normal breath sounds. No wheezing or rales. Abdominal: General: Bowel sounds are normal. Palpations: Abdomen is soft. Musculoskeletal: General: Normal range of motion. Cervical back: Normal range of motion and neck supple. Skin: General: Skin is warm and dry. Capillary Refill: Capillary refill takes less than 2 seconds. Coloration: Skin is not pale. Neurological: Mental Status: She is alert and oriented to person, place, and time. Cranial Nerves: No cranial nerve deficit. Psychiatric: Behavior: Behavior normal. Thought Content: Thought content normal. Judgment: Judgment normal. Review of Systems Constitutional: Positive for fatigue. Negative for activity change. HENT: Negative for ear pain and facial swelling. Eyes: Negative for pain and discharge. Respiratory: Negative for chest tightness and shortness of breath. Cardiovascular: Negative for chest pain, palpitations and leg swelling. Gastrointestinal: Negative for abdominal pain, blood in stool, nausea and vomiting. Endocrine: Negative for cold intolerance and heat intolerance. Genitourinary: Negative for frequency and hematuria. Musculoskeletal: Negative for arthralgias and gait problem. Skin: Negative for color change, pallor and rash. Allergic/Immunologic: Negative for immunocompromised state. Neurological: Negative for dizziness, syncope, light-headedness and headaches. Hematological: Negative for adenopathy. Does not bruise/bleed easily. Psychiatric/Behavioral: Negative for confusion. The patient is not nervous/anxious. 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 colon polyps Dementia without behavioral disturbance (HCC) Diverticulitis of colon with hemorrhage Esophageal reflux GERD Hemorrhage of gastrointestinal tract, unspecified 05/23/2001 Internal hemorrhoids without mention of complication 05/23/2001 Unspecified essential hypertension PAST SURGICAL HISTORY Procedure Laterality Date COLONOSCOPY 01/08/2017 COLONOSCOPY FLX DX W/COLLJ SPEC WHEN PFRMD ,05/24 Colonoscopy COLONOSCOPY FLX DX W/COLLJ SPEC WHEN PFRMD 08/23/2006 diverticulosis LAPAROSCOPY SURG CHOLECYSTECTOMY 2002 Cholecystectomy, lap PAST SURGICAL HISTORY OF 01/2007 left knee meniscus repair SALPINGO-OOPHORECTOMY COMPL/PRTL UNI/BI SPX Salpingo-oophorectomy b/l TOTAL ABDOMINAL HYSTERECT W/WO RMVL TUBE OVARY Hysterectomy, SHEN Social History Tobacco Use Smoking status: Former Current packs/day: 0.00 Types: Cigarettes Quit date: 1998 Years since quittin.9 Smokeless tobacco: Never Vaping Use Vaping status: Never Used Substance Use Topics Alcohol use: Yes Comment: occasionally - bottle of wine share once monthly (02/2016) Drug use: No FAMILY HISTORY Problem Relation Age of Onset Alzheimer's Disease Father 81 Thyroid Sister colitis Colon Cancer No Family History ALLERGIES Allergen Reactions Bactrim Ds [Sulfame* blisters in mouth, edema Furadantin [Nitrofu* Hives Macrobid [Nitrofura* Diarrhea Premarin [Conjugate* Provera [Medroxypro* Sulfamethoxazole Swelling Trimethoprim Swelling CURRENT MEDICATIONS: amLODIPine (NORVASC) 2.5 mg tablet Take 1 tablet by mouth once daily. Ferrous Gluconate 225 mg (27 mg iron) tab Take 1 tablet by mouth daily with breakfast. levothyroxine (LEVOXYL) 112 mcg tablet Take 1 tablet by mouth once daily. sertraline (ZOLOFT) 50 mg tablet Take 1 tablet by mouth once daily. metoprolol succinate ER (TOPROL XL) 50 mg 24 hr tablet take 1 tablet every day famotidine (PEPCID) 40 mg tablet take 1 tablet every day memantine (NAMENDA) 5 mg tablet Take 1 tablet by mouth two times a day. Please start by taking 5 mgs once a day and increase to taking 5 mgs 2 times a day pravastatin (PRAVACHOL) 20 mg tablet take 1 tablet every day Ipratropium [place] (ATROVENT) 21 mcg (0.03 %) nasal spray Use 2 Sprays in the nose every 12 hours. Dnfnzfkbkgaiq-Ticzcauk-Nxofmd (CENTRUM SILVER) Tab Take 1 tablet by mouth once daily. Rossy Crocker DO, [facility] Drug Safety Scientist, [facility] Ambulatory Cardiology Drug Safety Scientist, [facility] Cardiac Rehabilitation Drug Safety Scientist, [facility] Cardiac Rehabilitation Drug Safety Scientist, [facility] Drug Safety Scientist, [facility] Ambulatory Cardiology Clinical Account Management Specialist Profressor of Medicine, [facility] Staff Platform Consultant, [facility] Department of Cardiovascular Medicine/Heart and Vascular [place], [facility] Please note: This note has been produced using speech recognition software and may contain errors related to that system including nilay, punctuation, spelling, words, gender and phrases that may be inappropriate. documented in this encounter [facility] 02-17-2024 Note HNO ID: [id number] Author: VANESSA HER MD Service: ? Author Type: Physician Type: Progress Notes Filed: 02/17/2024 18:23 Note Text: [facility] Initial Consult Gertrude Flores is a 83 year old year old female who comes for Comprehensive Geriatric Assessment. Pt accompanied by: , Sarthak Flores Caregivers involved in care: HPI: Here for follow up of AD. Last visit we had given information on [facility], the has yet to call them, he will call them in the next few days to get more information. Currently not on any cognitive enhancers. B-ADLs: (I=independent,A=assistance,D=de pendent) ?Bathing: I, Dressing: A, Toileting: I, Transferring:I, Continence: I, Feeding: I, (Saini Index): 5 I-ADLs: Ability to use phone: D, Shopping: D, Cooking: D, Housekeeping: D, Laundry: D, Transportation:D, Medications: {D, Handle Finances: D. (Toma scale): 8 ALLERGIES Allergen Reactions Bactrim Ds [Sulfame* blisters in mouth, edema Furadantin [Nitrofu* Hives Macrobid [Nitrofura* Diarrhea Premarin [Conjugate* Provera [Medroxypro* Sulfamethoxazole Swelling Trimethoprim Swelling Physical Exam: General: Well-nourished, kempt Ambulatory: without assistance Mobility Aid: None Head: Normocephalic Eyes: conjunctiva/corneas normal, EOMI Nose: clear Oropharynx: moist without lesions, teeth in good repair Neck: supple and no adenopathy Cardio: Pulmonary: Lungs clear to auscultation bilaterally Extremities: Extremities normal. No deformities, edema, or skin discoloration. Musculoskeletal: Normal Gait Neuro:Deep Tendon reflexes :2/4 , Both Mini-Mental State Exam (MMSE): 08/21 Alzheimers dementia with out behavioral disturbances. # Patient has a diagnosis of Alzheimer's dementia and currently is completely dependent on all IADLs and needs help with dressing. She is also sleeping a lot more than normal, her appetite has decreased and so has her weight. She is on Namenda as her heart rate is too low with a pulse rate of 57 to try Aricept. There is significant caregiver stress. has beginning of dementia himself. Since they have no children the only other person to help him is her sister and their nieces. They have looked into a facility near [place] which is more like a memory unit if he cannot drive. He is expecting in a couple years he will not be in the condition to drive. We had given him information for [facility] last visit who had given him a call multiple times but he did not respond back. He does have the number and he has returned the call. We encouraged him to return the call today so that he can know of all the resources that are available for him. Continue the Namenda. Cussed pill packs and he will get back to us if he wants to use it. We also discussed meal delivery if he would be interested in that. He said he will get back to us regarding that. Vanessa Her MD [facility] 02-17-2024 History of Presen t illness Narrative [facility] Initial Consult Gertrude Flores is a 83 year old year old female who comes for Comprehensive Geriatric Assessment. Pt accompanied by: , Sarthak Flores Caregivers involved in care: HPI: Here for follow up of AD. Last visit we had given information on [facility], the has yet to call them, he will call them in the next few days to get more information. Currently not on any cognitive enhancers. B-ADLs: (I=independent,A=assistance,D=de pendent) ?Bathing: I, Dressing: A, Toileting: I, Transferring:I, Continence: I, Feeding: I, (Saini Index): 5 I-ADLs: Ability to use phone: D, Shopping: D, Cooking: D, Housekeeping: D, Laundry: D, Transportation:D, Medications: {D, Handle Finances: D. (Toma scale): 8 ALLERGIES Allergen Reactions Bactrim Ds [Sulfame* blisters in mouth, edema Furadantin [Nitrofu* Hives Macrobid [Nitrofura* Diarrhea Premarin [Conjugate* Provera [Medroxypro* Sulfamethoxazole Swelling Trimethoprim Swelling Physical Exam: General: Well-nourished, kempt Ambulatory: without assistance Mobility Aid: None Head: Normocephalic Eyes: conjunctiva/corneas normal, EOMI Nose: clear Oropharynx: moist without lesions, teeth in good repair Neck: supple and no adenopathy Cardio: Pulmonary: Lungs clear to auscultation bilaterally Extremities: Extremities normal. No deformities, edema, or skin discoloration. Musculoskeletal: Normal Gait Neuro:Deep Tendon reflexes :2/4 , Both Mini-Mental State Exam (MMSE): 5/30 Alzheimers dementia with out behavioral disturbances. # Patient has a diagnosis of Alzheimer's dementia and currently is completely dependent on all IADLs and needs help with dressing. She is also sleeping a lot more than normal, her appetite has decreased and so has her weight. She is on Namenda as her heart rate is too low with a pulse rate of 57 to try Aricept. There is significant caregiver stress. has beginning of dementia himself. Since they have no children the only other person to help him is her sister and their nieces. They have looked into a facility near [place] which is more like a memory unit if he cannot drive. He is expecting in a couple years he will not be in the condition to drive. We had given him information for [facility] last visit who had given him a call multiple times but he did not respond back. He does have the number and he has returned the call. We encouraged him to return the call today so that he can know of all the resources that are available for him. Continue the Namenda. Charliesed pill packs and he will get back to us if he wants to use it. We also discussed meal delivery if he would be interested in that. He said he will get back to us regarding that. Vanessa Her MD documented in this encounter [facility] 02-04-2024 Note Patient Outreach (IN TMMN) GERTRUDE FLORES ([id number]) 1940 F Date Time Provider Department 02/04/24 VANESSA HER During your visit today, we recorded the following information about you: Allergies As of Date: 02/04/2024 Noted Allergy Reaction BACTRIM DS (SULFAMETHOXAZOLE-TRIM* 5 Comments: blisters in mouth, edema FURADANTIN (NITROFURANTOIN) 03/20/2005 4 - Hives MACROBID (NITROFURANTOIN MONOHYD/*03/20/2005 6 - Diarrhea PREMARIN (CONJUGATED ESTROGENS) 03/20/2005 PROVERA (MEDROXYPROGESTERONE) 03/20/2005 SULFAMETHOXAZOLE 06/11/2021 7 - Swelling TRIMETHOPRIM 06/11/2021 7 - Swelling Date Reviewed: 11/13/2023 Reviewed by: Kinga Gonzalez MA - Fully Assessed Visit Diagnoses:CKD (chronic kidney disease) stage 3, GFR 30-59 ml/min (HCC) [N18.30] Mixed hyperlipidemia [E78.2] Order(s):BASIC METABOLIC PANEL [SQBMP] Order #: [id number] FUTURE LIPID PANEL BASIC [SQLIPB] Order #: [id number] FUTURE Prescriptions as of 02/07/2024 - Ferrous Gluconate 225 mg (27 mg iron) tab Take 1 tablet by mouth daily with breakfast. - levothyroxine (LEVOXYL) 112 mcg tablet Take 1 tablet by mouth once daily. - sertraline (ZOLOFT) 50 mg tablet Take 1 tablet by mouth once daily. - metoprolol succinate ER (TOPROL XL) 50 mg 24 hr tablet take 1 tablet every day - famotidine (PEPCID) 40 mg tablet take 1 tablet every day - memantine (NAMENDA) 5 mg tablet Take 1 tablet by mouth two times a day. Please start by taking 5 mgs once a day and increase to taking 5 mgs 2 times a day - pravastatin (PRAVACHOL) 20 mg tablet take 1 tablet every day - Ipratropium [place] (ATROVENT) 21 mcg (0.03 %) nasal spray Use 2 Sprays in the nose every 12 hours. - Oalskleuargia-Qnhxkesw-Rtihir (CENTRUM SILVER) Tab Take 1 tablet by mouth once daily. Problem List As Of Date 02/04/2024 Noted Resolved Gastroesophageal reflux disease without esophag* Acquired hypothyroidism [E03.9] 09/26/2005 Essential hypertension [I10] MELENA, BLOOD IN STOOL [K92.1] 08/12/2006 Pain in joint, lower leg [M25.569] 10/31/2006 01/23/2016 Other acquired deformity of toe [M20.5X9] 09/12/2010 01/23/2016 Ganglion of joint [M67.40] 09/12/2010 01/23/2016 Benign francis soft tissue [D21.9] 09/12/2010 Benign essential microscopic hematuria [R31.1] 02/22/2011 Osteoarthritis [M19.90] 07/10/2013 Medicare annual wellness visit, subsequent [Z00*01/23/2016 Memory loss [R41.3] 01/23/2016 08/12/2018 Balance problem [R26.89] 03/22/2016 B12 deficiency [E53.8] 03/22/2016 [place] (hard of hearing) [H91.90] 03/22/2016 Screening for colon cancer [Z12.11] 12/24/2016 PVC's (premature ventricular contractions) [I49*09/12/2018 Mixed hyperlipidemia [E78.2] 02/10/2019 Dementia without behavioral disturbance (HCC) [*02/10/2019 CKD (chronic kidney disease) stage 3, GFR 30-59*08/12/2019 Chronic pain of left knee [M25.562, G89.29] 05/03/2023 Chronic knee instability, 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 Pt accompanied by: , Sarthak Flores Caregivers involved in care: HPI: Not eating as much as before, lost 20 pounds over the past 3 years. No appetite Sleeping more- used to sleep from 10:30 to 7 and now she is sleeping now an hour after waking up in the morning she is sleeping again Hallucinating- she has been seeing people all over the house. She does not have a conversation with them but she refers to them. For the past 2 years. Less energy.- patient is a lot more tired than she was. For instance she used to be able so accompany him for shopping but now she is not able to do that. She has sit and rest multiple times before completing shopping with her. There was an episode of her wandering around Her jaw hurts her when she eats. Any Family History of dementia? Father had AD Are you or your spouse a ? Sarthak is a . Alzheimer Questionnaire Long-term Memory: Difficulty remembering distant events from the past like childhood, previous employment, wedding: YES Behavioral/personality: Withdrawn/Depressed: NO Crying spells: NO Anxious: NO History of aggression: NO History of irritability: No Apathy:YES Recent changes in weight or appetite: YES Alcohol or Drug use: NO Smoking? NO Sleep: Do you snore loudly (louder than talking or loud enough to be heard through closed doors)? YES Do you often feel tired, fatigued, or sleepy during daytime? YES Has anyone observed you stop breathing during your sleep? YES Are you restless when you sleep at night? NO Do you have problems falling a sleep? NO Do you have problems staying a sleep? NO Psychosis: Hallucinations or delusions: YES Suicidal or homicidal ideations: NO Obsessions, compulsions, or hoarding: NO Safety: Does pt know his/her address? YES and NO What would you do if there was a fire? Leave the house How would you call for help? Does not know Does he/she know 911? NO Are there any firearms in the home? YES If yes are they in a secure location? Yes Social History: Primary language: Afghan Marital Status: Living situation: Home w/ Spouse Socially engaged? (participates in activities such as clubs, [employer], community center, sports, games, visiting friends/relatives, etc?): NO they stopped doing this for a while Caregiver [place] and Stress Are your feeling overwhelmed? NO Do you have concerns about your own health? NO Are you neglecting your own needs? YES Do you have financial concerns? NO Do your fear loss of employment? NO Do you have concerns about verbal/physical abuse? NO Do you feel that you are still capable of taking care of your relative? YES Are you willing to continue being in the caregiver role? YES B-ADLs: (I=independent,A=assistance,D=de pendent) ?Bathing: I, Dressing: A, Toileting: I, Transferring:I, Continence: I, Feeding: I, (Saini Index): 5 I-ADLs: Ability to use phone: D, Shopping: D, Cooking: D, Housekeeping: D, Laundry: D, Transportation:D, Medications: {D, Handle Finances: D. (Toma scale): 8 PMHx: PAST MEDICAL HISTORY 09/2020: Abscess of back Comment: infected sebaceous cyst 05/23/2001: Benign neoplasm of colon Comment: colon polyps No date: Dementia without behavioral disturbance (HCC) No date: Diverticulitis of colon with hemorrhage No date: Esophageal reflux Comment: GERD 05/23/2001: Hemorrhage of gastrointestinal tract, unspecified 05/23/2001: Internal hemorrhoids without mention of complication No date: Unspecified essential hypertension PSHx: PAST SURGICAL HISTORY 01/08/2017: COLONOSCOPY ,05/24: COLONOSCOPY FLX DX W/COLLJ SPEC WHEN PFRMD Comment: Colonoscopy 08/23/2006: COLONOSCOPY FLX DX W/COLLJ SPEC WHEN PFRMD Comment: diverticulosis 2001: LAPAROSCOPY SURG CHOLECYSTECTOMY Comment: Cholecystectomy, lap 01/2007: PAST SURGICAL HISTORY OF Comment: left knee meniscus repair No date: SALPINGO-OOPHORECTOMY COMPL/PRTL UNI/BI SPX Comment: Salpingo-oophorectomy b/l No date: TOTAL ABDOMINAL HYSTERECT W/WO RMVL TUBE OVARY Comment: Hysterectomy, SHEN Home Meds: Prior to Admission medications : Medication levothyroxine (LEVOXYL) 112 mcg tablet, Sig Take 1 tablet by mouth once daily., Start Date 10/01/23, End Date , Taking? , Authorizing Provider Erica Noonan APRN.DISHTANK OPERATOR Medication sertraline (ZOLOFT) 50 mg tablet, Sig Take 1 tablet by mouth once daily., Start Date 10/01/23, End Date , Taking? , Authorizing Provider Erica Noonan APRN.DISHTANK OPERATOR Medication metoprolol succinate ER (TOPROL XL) 50 mg 24 hr tablet, Sig take 1 tablet every day, Start Date 06/21/23, End Date , Taking? , Authorizing Provider Meagan Lambert APRN.DISHTANK OPERATOR Medication famotidine (PEPCID) 40 mg tablet, Sig take 1 tablet every day, Start Date 05/08/23, End Date , Taking? , Authorizing Provider Meagan Lambert APRN.DISHTANK OPERATOR Medication memantine (NAMENDA) 5 mg tablet, Sig Take 1 tablet by mouth two times a day. Please start by taking 5 mgs once a day and increase to taking 5 mgs 2 times a day, Start Date 04/22/23, End Date , Taking? , Authorizing Provider Meagan Lambert APRN.DISHTANK OPERATOR Medication pravastatin (PRAVACHOL) 20 mg tablet, Sig take 1 tablet every day, Start Date 03/04/23, End Date , Taking? , Authorizing Provider Yamilet Choe APRN.DISHTANK OPERATOR Medication Ipratropium [place] (ATROVENT) 21 mcg (0.03 %) nasal spray, Sig Use 2 Sprays in the nose every 12 hours., Start Date 10/09/22, End Date , Taking? , Authorizing Provider Erica Noonan APRN.DISHTANK OPERATOR Medication Qwsogkklvehym-Pbzipwdo-Pqqbzz (CENTRUM SILVER) Tab, Sig Take 1 tablet by mouth once daily., Start Date 08/26/12, End Date , Taking? , Authorizing Provider Hanson, Sourav B Other OTC med/supplements: None Medication Review: - ANY HIGH RISK MEDICATIONS (STOPP CRITERIA): NO ALLERGIES Allergen Reactions Bactrim Ds [Sulfame* blisters in mouth, edema Furadantin [Nitrofu* Hives Macrobid [Nitrofura* Diarrhea Premarin [Conjugate* Provera [Medroxypro* Sulfamethoxazole Swelling Trimethoprim Swelling Review of Systems Difficulty chew/swallow: yes, sometimes she chokes Pain: not much pain Tremor: no Incontinence - During the last 3 months did you leak urine? YES - Type?: mixed incontinence Constipation/Change in bowel habits: NO Vision No vision problems reported Follows with engineering coordinator:YES Hearing - Hearing aid : Hearing impairment, wears right hearing aid Falls: .: Falls in the last 12 months: no . If + falls: Physical Exam: General: Well-nourished, kempt Ambulatory: without assistance Mobility Aid: None Head: Normocephalic Eyes: conjunctiva/corneas normal, EOMI Nose: clear Oropharynx: moist without lesions, teeth in good repair Neck: supple and no adenopathy Cardio: Pulmonary: Lungs clear to auscultation bilaterally Extremities: Extremities normal. No deformities, edema, or skin discoloration. Musculoskeletal: Normal Gait Neuro:Deep Tendon reflexes :2/4 , Both Gait: Unsteadiness: NO Shuffling: NO Tremors: NO Slowness: YES Mini-Mental State Exam (MMSE): 5/30 CDR Dementia Scale 1) Subjective Memory Loss: YES 2) Measurable Memory Loss: YES 3) IADLs: YES 4) BADLs: YES Driving Safely: Yes > 50% 6) Medications: NMDA Level: cdr 1 2 Depression Screening/Evaluation: GDS:15 No Data Recorded Labs: None available today- - Brain Imagin * No evidence of an acute intracranial process or intracranial mass. * Moderate to severe generalized volume loss. * Hippocampal volumes at the 1st percentile when compared to age matched normal controls by quantitative analysis. * Mild white matter disease which is nonspecific but likely reflective of chronic microvascular ischemia. * Less than 5 parenchymal microhemorrhages by MRI. (G30.9, F02.80) Alzheimer's disease (HCC) Comment: Plan: CONSULT TO GERIATRICS Assessment and Plan: I. Medical /Mental Status/Decision Making Capacity 1-Mentation # Patient has a diagnosis of Alzheimer's dementia and currently is completely dependent on all IADLs and needs help with dressing. She is also sleeping a lot more than normal, her appetite has decreased and so has her weight. She is on Namenda as her heart rate is too low with a pulse rate of 57 to try Aricept. There is significant caregiver stress. Has been himself has memory issues. Since they have no children the only other person to help him is her sister and their nieces. They have looked into a facility near [place] which is more like a memory unit if he cannot drive. He is expecting in a couple years he will not be in the condition to drive. is looking for resources to help him take care of her. Currently very occasionally he has her sister come down from [place] to help. The rest of the time he has to be with her because she is unable to be left alone at home due to 1 episode of wandering and he is doing all the IADLs and all the maintenance and paperwork for both of them. Plan: To get him information for resources especially with [facility], [facility] and any benefits at the NH can give because he is a . 2-Mobility -- She has been walking a lot lesser than before but is still able to walk and transfer. She would benefit from some physical therapy. Plan Physical therapy at home 3-Medications and chronic medical conditions has been giving her medications and her thyroid levels are in range. He is very good about giving her the rest of the medication and has been doing that in applesauce. If she gets medications in applesauce she is doing well. 1 concern today is that she is anemic with increased haptoglobin levels, iron levels are low too. We are replacing iron and checking her iFOBT Plan 4- Matters Most - What are your most important goals now?: Find facility in case that is needed and work on it. If your health situation worsens, what are your most important goals? HCPOA already on file Code status: On file II. Physical/Function - Patient is Partially independent, with Poorfunctional baseline. No indications to intervene at present III. Living Environment / Social - Patient Doesn't have good social/family support, consult Social Work. Will require some additional support and help to be offered REFERRALS AND RECOMMENDATIONS 1. Discussed the cognitive benefits of memory exercises and reviewed examples 2. Discussed the cognitive benefits of physical exercise and socialization 3. Will have to work with community to get families some resources for care Spent more than 60 mins with the patient Vanessa Her MD [facility] documented in this encounter [facility] 11-13-2023 Nurse Note MMSE and GDS completed with patient and scores entered into questionnaire. Kinga Gonzalez MA [facility] 11-13-2023 Nurse Note MMSE and GDS completed with patient and scores entered into questionnaire. Kinga Gonzalez MA documented in this encounter [facility] 10-24-2023 Miscellaneous Notes Order placed. Please assist with scheduling for [place] location. Thank you Meagan Lambert APRN.CNP Consult to Geriatric pended, d/t demential and behaviors. Please review and advise. Thank you. Would like to be seen in [address] Gabe Wheat LPN October 24, 2023 10:16 AM documented in this encounter [facility] 10-24-2023 Telephone encounter Note Order placed. Please assist with scheduling for [place] location. Thank you Meagan Lambert APRN.CNP [facility] 10-24-2023 Instructions Vanessa Her MD - 10/24/2023 10:15 AM EDT For wrist or knee pain, you can give upto 1000 mgs of tylenol 3 times a day. You could alternate that with brufen/motrin 400 mgs also. If giving motrin, give it after food Since she has to be monitored regularly. Please program your alarm so that it is on when she is not in front of you , you get an notification if she opens any doors. documented in this encounter [facility] 10-24-2023 Telephone encounter Note Consult to Geriatric pended, d/t demential and behaviors. Please review and advise. Thank you. Would like to be seen in [address] Gabe Wheat LPN October 24, 2023 10:16 AM [facility] 10-24-2023 History of Presen t illness Narrative CC: Patient presents with: Recheck: 6 month follow up HPI Gertrude Flores is a 83 year old female who has moderate dementia, hypothyroidism, osteoarthritis, reflux, mixed hyperlipidemia, essential hypertension balance issues and CKD. Dementia with depression: Per patient she feels well controlled at this time. Per he denies an recent decline in memory and does not cry often or appear depressed. Sleep: is described as normal Appetite: good Suicidal Thoughts: No suicidal ideation, intent or plan Support: Dementia with behaviors: episode of wandering in June. She was on the side of the road, was found by the sherrif. They have not put a security system. cares for patient. Patient able to bathe herself but does other daily activiities including pincking out her clothes. Denies any concerns for safety at this time. Notes a rash on the back which was present for 3 days , no issues now. Patient complains of pain in the knee and wrists and he wanted to know what to give her. Hypothyroidism: need to check levels as last time they were not controlled HTN CKD and HLD: Ms. Flores indicates that she is feeling well and denies any symptoms referable to elevated blood pressure. Specifically denies headache, chest pain, palpitations, dyspnea, and peripheral edema. Patient denies any side effects of her medication(s) and is compliant with their regimen. She does not check BP's generally. Gertrude works out regularly 5-7 times per week with walking. She watches her diet for sodium, low fat and low cholesterol most of the time. Last 3 Encounter BP Readings: Date: BP: 04/22/2023 120/70 2023 171/85 03/20/2023 134/64 REVIEW OF SYSTEMS General: no fevers, no chills, no night sweats, no recurrent infections, no change in appetite, no change in energy, and no significant changes in weight Respiratory: no cough, no wheezing, no shortness of breath, no hemoptysis Cardiovascular: no chest pain, no chest pressure, no palpitations, and no swelling Neurologic: No headache, weakness, numbness, dizziness, syncope. PAST MEDICAL HISTORY 09/2020: Abscess of back Comment: infected sebaceous cyst 05/23/2001: Benign neoplasm of colon Comment: colon polyps No date: Dementia without behavioral disturbance (HCC) No date: Diverticulitis of colon with hemorrhage No date: Esophageal reflux Comment: GERD 05/23/2001: Hemorrhage of gastrointestinal tract, unspecified 05/23/2001: Internal hemorrhoids without mention of complication No date: Unspecified essential hypertension PAST SURGICAL HISTORY 01/08/2017: COLONOSCOPY ,05/24: COLONOSCOPY FLX DX W/COLLJ SPEC WHEN PFRMD Comment: Colonoscopy 08/23/2006: COLONOSCOPY FLX DX W/COLLJ SPEC WHEN PFRMD Comment: diverticulosis 2001: LAPAROSCOPY SURG CHOLECYSTECTOMY Comment: Cholecystectomy, lap 01/2007: PAST SURGICAL HISTORY OF Comment: left knee meniscus repair No date: SALPINGO-OOPHORECTOMY COMPL/PRTL UNI/BI SPX Comment: Salpingo-oophorectomy b/l No date: TOTAL ABDOMINAL HYSTERECT W/WO RMVL TUBE OVARY Comment: Hysterectomy, SHEN ALLERGIES Bactrim Ds [Sulfamethoxazole-Trimethoprim], Furadantin [Nitrofurantoin], Macrobid [Nitrofurantoin Monohyd/M-Cryst], Premarin [Conjugated Estrogens], Provera [Medroxyprogesterone], Sulfamethoxazole, and Trimethoprim MEDICATIONS levothyroxine (LEVOXYL) 112 mcg tablet Take 1 tablet by mouth once daily. sertraline (ZOLOFT) 50 mg tablet Take 1 tablet by mouth once daily. metoprolol succinate ER (TOPROL XL) 50 mg 24 hr tablet take 1 tablet every day famotidine (PEPCID) 40 mg tablet take 1 tablet every day memantine (NAMENDA) 5 mg tablet Take 1 tablet by mouth two times a day. Please start by taking 5 mgs once a day and increase to taking 5 mgs 2 times a day pravastatin (PRAVACHOL) 20 mg tablet take 1 tablet every day Ipratropium [place] (ATROVENT) 21 mcg (0.03 %) nasal spray Use 2 Sprays in the nose every 12 hours. Pxocezkfiujrh-Vxhhvrxo-Hznqlv (CENTRUM SILVER) Tab Take 1 tablet by mouth once daily. FAMILY HISTORY Problem Relation Age of Onset Alzheimer's Disease Father 81 Thyroid Sister colitis Colon Cancer No Family History Social History Tobacco Use Smoking status: Former Types: Cigarettes Quit date: 1998 Years since quittin.6 Smokeless tobacco: Never Vaping Use Vaping Use: Never used Substance Use Topics Alcohol use: Yes Comment: occasionally - bottle of wine share once monthly (02/2016) Drug use: No PHYSICAL EXAM BP 128/68 (BP Site: Left Arm) Pulse 65 Wt 81.3 kg (179 lb 3.2 oz) SpO2 98% BMI 28.92 kg/m General Appearance: well appearing, in no acute distress, alert Pysch: mood and affect broad and appropriate Skin: Skin color, texture, turgor normal for age; Eyes: conjunctiva pink and moist, no icterus, sclera white, non-injected Lungs: Lungs clear to auscultation. No wheezing, rhonchi, rales. Heart: RRR without murmur, gallop, or rubs. No ectopy BLE Extremities: No edema, skin discoloration, clubbing or cyanosis. Good capillary refill. Right second toe with curved deformity at dip joint. No redness or tenderness, able to move all toes and sensation intact Musculoskeletal: Bilateral knee- normal to inspection. Tenderness:none. Flexion:Limitation: No, Pain:No; Extension:Limitation:No, Pain:No. Laxity: No Muscle strength- 5/5 lower, bilaterally Health maintenance reviewed with patient: RSV Vaccine(1 - 1-dose 60+ series) Never done Advance Directive Discussion due on 2023 DTaP,Tdap,Td Vaccine(2 - Td or Tdap) due on 07/10/2023 Diabetes Screening due on 04/19/2026 Bone Density Screening Completed Influenza Vaccine Completed Shingrix Vaccine Completed Covid-19 Vaccine Completed Pneumococcal Vaccine: 65+ Completed Colorectal Cancer Screening Discontinued DATA REVIEWED: Most recent labs ASSESSMENT/PLAN: 1. Alzheimer's disease (HCC) - ICD9: 331.0, ICD10: G30.9, F02.80 (primary diagnosis) Reviewed her MRI with her and that it pointed to Alzheimer's disease. She has been on Aricept in the past since 2018 until 24. She is currently on Namenda. There is not much improvement in cognition in fact there is some behavioral changes and some safety issues that have cropped up. reported that he himself has memory concerns and there is no children who can help. He also has hearing impairment. He needs to see geriatrics to see if anything more can be added for them. 2. Weight loss - ICD9: 783.21, ICD10: R63.4 Weight has stabilized which is reassuring 3. Acquired hypothyroidism - ICD9: 244.9, ICD10: E03.9 Would like to recheck because last time her levels were elevated. - THYROID STIMULATING HORMONE 4. Essential hypertension - ICD9: 401.9, ICD10: I10 - Controlled - Recommend home blood pressure monitoring, to bring results to next visit - Encouraged sodium restriction, DASH or Mediterranean diet - Recommend regular aerobic exercise 5. Primary osteoarthritis involving multiple joints - ICD9: 715.98, ICD10: M15.0 6. Vitamin B12 deficiency - ICD9: 266.2, ICD10: E53.8 - VITAMIN B12 7. Dementia with behavioral disturbance (HCC) - ICD9: 294.21, ICD10: F03.918 We talked about supporting her. She does have some hallucinations. They appear to be not very bothersome at this point. Brexpiprazole could be a medication that we could try on her. Vanessa Her MD documented in this encounter [facility] 10-01-2023 Telephone encounter Note Patient has been identified by name and date of : Yes Patient phones for refill(s): Requested Prescriptions Pending Prescriptions Disp Refills levothyroxine (LEVOXYL) 112 mcg tablet 90 tablet 3 Sig: Take 1 tablet by mouth once daily. sertraline (ZOLOFT) 50 mg tablet 90 tablet 3 Sig: Take 1 tablet by mouth once daily. Date of last office visit in primary care: 04/22/2023 Date of next office visit in primary care: 10/24/2023 Please advise. Thank you. Maryan Johnson LPN. [facility] 10-01-2023 Miscellaneous Notes Patient has been identified by name and date of : Yes Patient phones for refill(s): Requested Prescriptions Pending Prescriptions Disp Refills levothyroxine (LEVOXYL) 112 mcg tablet 90 tablet 3 Sig: Take 1 tablet by mouth once daily. sertraline (ZOLOFT) 50 mg tablet 90 tablet 3 Sig: Take 1 tablet by mouth once daily. Date of last office visit in primary care: 04/22/2023 Date of next office visit in primary care: 10/24/2023 Please advise. Thank you. Maryan Johnson LPN. documented in this encounter [facility] 09-02-2023 Telephone encounter Note Pharmacy request denied. Patient needs to contact office for refills. Kinga Gonzalez MA [facility] 09-02-2023 Miscellaneous Notes Pharmacy request denied. Patient needs to contact office for refills. Kinga Gonzalez MA documented in this encounter [facility] 06-24-2023 History of Presen t illness Narrative Episode Visit Count: 8 Therapist That Will Accept/Oversee The Plan Of Care: Tanna Orellana Start of Care Date: 05/03/23 Onset Date: 09/22/22 Plan of Care Certification Date: 05/03/23 Next Certification Due Date: 07/02/23 Patient Identified by Name and Date of : Yes REHABILITATION AND SPORTS THERAPY PHYSICAL THERAPY TREATMENT NOTE ASSESSMENT: Gertrude Flores tolerated the session with fatigue and expected muscle soreness. She demonstrated improvements in endurance with exercise without increase in L knee pain. The patient will continue to benefit from ongoing skilled physical therapy to progress toward set goals. PLAN FOR NEXT VISIT: PN SUBJECTIVE: Pt reports that her knee is fine today. Per pt's , he states that pt will say her knee if feeling really good, then she stands up and it collapses. Pt pleasantly confused today. Pain: Pain Pain Level: 0 Pain Location: Knee - Left Post Treatment Pain Post Treatment Pain Location: Knee - Left OBJECTIVE MEASURES WITH LEVEL OF FUNCTION: TREATMENT: Therapeutic Exercise: 1: Scifit Seated stepper x 5 minutes, seat #10 (1:1 throughout. subjective collected.) 2: Step ups on 6 inch step 2x15 LE 3: Lateral step ups on 6 inch step 2x15 LLE 4: seated LAQ 3x10 LLE 5: Standing alt marching 2x15 B 6: Standing HS curls 2x15 B 7: Standing hip abduction 2x15 B 8: STS 2x10 Skilled Intervention: Patient was educated in proper exercise technique and purpose for exercises. Skilled judgment was used in selection of appropriate interventions. Correct performance of therapeutic exercises was facilitated with verbal and visual cuing. Billing Therapeutic Exercise Treatment Minutes: 40 Skilled Treatment Time Minutes (timed and untimed codes): 40 Total Session Time (minutes): 40 Session Start Time : 1015 Session Stop Time : 1055 GER Bynum PT documented in this encounter [facility] 06-17-2023 History of Presen t illness Narrative Episode Visit Count: 7 Therapist That Will Accept/Oversee The Plan Of Care: Tanna Orellana Start of Care Date: 05/03/23 Onset Date: 09/22/22 Plan of Care Certification Date: 05/03/23 Next Certification Due Date: 07/02/23 Patient Identified by Name and Date of : Yes REHABILITATION AND SPORTS THERAPY PHYSICAL THERAPY TREATMENT NOTE ASSESSMENT: Gertrude Flores tolerated the session with fatigue and expected muscle soreness. She demonstrated improvements in tolerance to standing exercise. The patient will continue to benefit from ongoing skilled physical therapy to progress toward set goals. PLAN FOR NEXT VISIT: Continue with L knee strengthening SUBJECTIVE: Pt reports that she is not having any pain in her knee today. Pain: Pain Pain Level: 0 Pain Location: Knee - Left Post Treatment Pain Post Treatment Pain Level: 0 Post Treatment Pain Location: Knee - Left OBJECTIVE MEASURES WITH LEVEL OF FUNCTION: Form observed throughout session. TREATMENT: Therapeutic Exercise: 1: Scifit Seated stepper x 5 minutes. (1:1 throughout. subjective collected.) 2: seated LAQ 3x10 LLE 3: Step ups on 6 inch step 2x15 LE 4: Lateral step ups on 6 inch step 2x15 LLE 5: Standing alt marching 2x15 B 6: Standing HS curls 2x15 B Skilled Intervention: Patient was educated in proper exercise technique and purpose for exercises. Skilled judgment was used in selection of appropriate interventions. Correct performance of therapeutic exercises was facilitated with verbal and visual cuing. Billing Therapeutic Exercise Treatment Minutes: 40 Skilled Treatment Time Minutes (timed and untimed codes): 40 Total Session Time (minutes): 40 Session Start Time : 1015 Session Stop Time : 1055 GER Bynum PT documented in this encounter [facility] 06-10-2023 History of Presen t illness Narrative Episode Visit Count: 6 Therapist That Will Accept/Oversee The Plan Of Care: Tanna Orellana Start of Care Date: 05/03/23 Onset Date: 09/22/22 Plan of Care Certification Date: 05/03/23 Next Certification Due Date: 07/02/23 Patient Identified by Name and Date of : Yes REHABILITATION AND SPORTS THERAPY PHYSICAL THERAPY TREATMENT NOTE ASSESSMENT: Gertrude Flores tolerated the session with fatigue and expected muscle soreness. She demonstrated difficulty with following cues to complete exercises safely. The patient will continue to benefit from ongoing skilled physical therapy to progress toward set goals. PLAN FOR NEXT VISIT: Continue with current exercise and soft tissue mobs. SUBJECTIVE: Pt reports that she is doing good today. Pain: Pain Pain Level: 0 Pain Location: Knee - Left Post Treatment Pain Post Treatment Pain Location: Knee - Left Post Treatment Symptoms: I feel way better OBJECTIVE MEASURES WITH LEVEL OF FUNCTION: Difficulty with following one step verbal cues this visit. TREATMENT: Therapeutic Exercise: 1: Scifit Seated stepper x 5 minutes. (1:1 throughout. subjective collected. Discussed response to STM) 2: Step ups on 6 inch step 2x10 B 3: blue band TKE 2x10 LLE 4: seated LAQ 3x10 LLE Skilled Intervention: Patient was educated in proper exercise technique and purpose for exercises. Skilled judgment was used in selection of appropriate interventions. Correct performance of therapeutic exercises was facilitated with verbal and visual cuing. Manual Therapy: 1: STM with foam roller to posterior thigh,knee, calf muscles with pt in prone lying x minutes Skilled Intervention: Manual skills to improve joint mobility, ROM, and decrease pain. Utilized anatomy knowledge of the therapist, and assessment of patient's response to intervention. Billing Therapeutic Exercise Treatment Minutes: 28 Manual TherapyTreatment Minutes: 4 Skilled Treatment Time Minutes (timed and untimed codes): 32 Total Session Time (minutes): 32 Session Start Time : 1528 Session Stop Time : 1600 GER Bynum PT documented in this encounter [facility] 06-03-2023 History of Presen t illness Narrative Episode Visit Count: 5 Therapist That Will Accept/Oversee The Plan Of Care: Tanna Orellana Start of Care Date: 05/03/23 Onset Date: 09/22/22 Plan of Care Certification Date: 05/03/23 Next Certification Due Date: 07/02/23 Patient Identified by Name and Date of : Yes REHABILITATION AND SPORTS THERAPY PHYSICAL THERAPY TREATMENT NOTE ASSESSMENT: Gertrude Flores tolerated the session with fatigue. She demonstrated improvements in knee extension PROM, good initial tolerance to new exercises. The patient will continue to benefit from ongoing skilled physical therapy to progress toward set goals. PLAN FOR NEXT VISIT: Continue with current exercise and soft tissue mobs. SUBJECTIVE: Pt conversational and pleasantly confused. Pain: Pain Pain Level: 0 Pain Location: Knee - Left Post Treatment Pain Post Treatment Pain Description: (Pt states her, knees are feeling tired at the end of session.) OBJECTIVE MEASURES WITH LEVEL OF FUNCTION: LE AROM L LE AROM: PROM extension to -7 after exercise and STM. Pt is pleasantly compliant, but requires multiple verbal, visual and tactile cues for correct form/technique and to redirect her focus at times. TREATMENT: Therapeutic Exercise: 1: Scifit Seated stepper x 5 minutes. 2: stepups on stairs 3: blue band TKE 4: STM to posterior thigh,knee, calf muscles with pt in pronelying 5: seated LAQ 3x10 LLE 6: STS 2 x 15 Skilled Intervention: Patient was educated in proper exercise technique and purpose for exercises. Reviewed and educated patient on additions/changes for home exercise program. Skilled judgment was used in selection of appropriate interventions. Correct performance of therapeutic exercises was facilitated with verbal, visual, and tactile cuing. Patient education as noted. Billing Therapeutic Exercise Treatment Minutes: 45 Skilled Treatment Time Minutes (timed and untimed codes): 45 Total Session Time (minutes): 45 Session Start Time : 1203 Session Stop Time : 1248 Tanna Orellana PT documented in this encounter [facility] 05-27-2023 History of Presen t illness Narrative Episode Visit Count: 4 Therapist That Will Accept/Oversee The Plan Of Care: Tanna Orellana Start of Care Date: 05/03/23 Onset Date: 09/22/22 Plan of Care Certification Date: 05/03/23 Next Certification Due Date: 07/02/23 Patient Identified by Name and Date of : Yes REHABILITATION AND SPORTS THERAPY PHYSICAL THERAPY PROGRESS REPORT PLAN OF CARE UPDATE: Assessment: Gertrude Flores demonstrates improvements in rising from a chair and walking. She has progressed toward goals. Patient continues to present with impairments in gait, range of motion, strength, and stair negotiation that interfere with stair negotiation, rising from a chair, walking . Current prognosis is Good due to: current objective clinical presentation, good overall health status, good support system/ coping skills, Prognosis may be limited due to memory deficits . She will benefit from continued skilled therapy services to meet the updated goals for this plan of care as noted below. Goals for Episode of Care: created on 05/03/23 through 07/02/23 Goals updated on 05/27/2023. [place] in home exercise program. (Partially Met)- fair compliance Patient will decrease pain rating by 2 points to meet minimal clinical important difference for numeric pain rating scale. (Met) Patient will increase active ROM of L knee to 0 deg flexion to allow pt to to improve performance of ADLs and to improve gait mechanics / gait pattern . (Not Met)-improved Patient will demonstrate increase in L LE strength to 5/5 during manual muscle testing in order to improve function for home management tasks, leisure / recreation skills, and prior functional tasks. (Not Met) Patient will increase flexibility of L hamstrings to 80-90 degrees SLR to improve ability to maintain proper posture, improve mechanics, and decrease pain. (Met) Perform stairs, walking on gravel driveway, and community walking without pain. (Not Met) Normal gait. (Partially Met)-improved Patient Goals: To not have her knee give out. Planned Interventions, Frequency, and Duration: 1x/week, 4 weeks Total Number of Visits Planned: 4 Patient to be seen for Therapeutic exercise ([id number]), Manual therapy ([id number]), Self-nursing home management ([id number]), Gait Training ([id number]), Patient/Family/Caregiver Education PLAN FOR NEXT VISIT: May add step-ups, standing TKE with band. May continue with STM using foam roller to hamstrings/back of knee as this seemed to assist with increased knee ext. SUBJECTIVE: Pt states her knee has been feeling fine. her states she has not been wanting to do the exercisees at home, but he plans to set a schedule for him to do his exercises with her doing hers and thinks this will help to motivate her to do them. Functional Limitations: stair negotiation, rising from a chair, walking Pain: Pain Pain Level: 0 Pain Location: Knee - Left Post Treatment Pain Post Treatment Pain Level: 0 Post Treatment Pain Location: Knee - Left PROMIS Scales Higher is Better 05/08/2023 Phys Func - Score 38 (moderate dysfunction) Phys Func - Percentile 12% Self-Eff Symptom - Score 42 (Average) Self-Eff Symptom - Percentile 21% T-scores: mean of general population = 50. 5 points is clinically meaningfully difference Percentiles provide an indication of how the patient's score ranks in relation to the general population. Higher percentile rankings indicate better function/quality of life. 50th percentile is the average of the general population and indicates half of respondents had a worse score. OBJECTIVE MEASURES WITH LEVEL OF FUNCTION: Posture / Alignment LE Observations: Knee extension improved, but still has a flexion posture in stance and gait. LE AROM R Knee Extension: -8 Degrees R Knee Flexion: 140 Degrees L Knee Extension: -8 Degrees L Knee Flexion: 140 Degrees LE Flexibility L SLR Flexibility: 80deg, end range hamstring tightness LE Strength R LE Strength: 4+/5 L LE Strength: 4+/5 Gait Gait Deviations Left Lower Extremity: (improved knee and hip extension, but small deficts remain) Functional Performance Test Results 30 Second Chair Stand Test: 10 reps TREATMENT: Therapeutic Exercise: 1: Scifit Seated stepper x 5 minutes. 2: SLR 2 x 10 each leg 3: quad sets with small towel roll under knee, 5 sec holds 2 10 4: seated LAQ 3x10 LLE 5: STS x10 (30 sec) 6: Encouraged pt to perform her home exercises with her to allow for improvements in her knee and function. She verbalized agreement. Pt continues to demonstrate inconsistent orientation as sometimes her responses and conversation make sense and other times they do not. She is pleasantly cooperative during treatments. Skilled Intervention: Patient was educated in proper exercise technique and purpose for exercises. Reviewed and educated patient on additions/changes for home exercise program. Skilled judgment was used in selection of appropriate interventions. Correct performance of therapeutic exercises was facilitated with verbal, visual, and tactile cuing. Additional time necessary for objective measurements and reassessment. due to plan of care update. Patient education as noted. Billing Therapeutic Exercise Treatment Minutes: 45 Skilled Treatment Time Minutes (timed and untimed codes): 45 Total Session Time (minutes): 45 Session Start Time : 1203 Session Stop Time : 1248 Tanna Orellana PT documented in this encounter [facility] 05-10-2023 History of Presen t illness Narrative Episode Visit Count: 2 Therapist That Will Accept/Oversee The Plan Of Care: Tanna Orellana Start of Care Date: 05/03/23 Onset Date: 09/22/22 Plan of Care Certification Date: 05/03/23 Next Certification Due Date: 07/02/23 Patient Identified by Name and Date of : Yes REHABILITATION AND SPORTS THERAPY PHYSICAL THERAPY TREATMENT NOTE ASSESSMENT: Gertrude Flores tolerated the session with fatigue and no issues. She demonstrated improvements in hamstring flexibility with continued stretching. The patient will continue to benefit from ongoing skilled physical therapy to progress toward set goals. PLAN FOR NEXT VISIT: Consider LAQ for HEP, maybe trial a few standing exercises SUBJECTIVE: Pt reports that her knee is feeling fine today. Pt denies any pain. Per , she has not been able to get all of the rounds of her exercise in during the day. Pain: Pain Pain Level: 0 Pain Location: Knee - Left Post Treatment Pain Post Treatment Pain Level: Better Post Treatment Pain Location: Knee - Left OBJECTIVE MEASURES WITH LEVEL OF FUNCTION: Verbal, visual, and tactile cueing given throughout session for technique with exercise. TREATMENT: Therapeutic Exercise: 1: Scifit Seated stepper x 5 minutes. (1:1 throughout, discussed current HEP) 2: SLR 2 x 10 each leg 3: quad sets with small towel roll under knee, 5 sec holds 2 10 4: SAQ 2x10 LLE 5: Supine HS stretch with strap 3x30 seconds LLE 6: Seated LAQ 2x10 LLE 7: STS x10 Skilled Intervention: Patient was educated in proper exercise technique and purpose for exercises. Skilled judgment was used in selection of appropriate interventions. Correct performance of therapeutic exercises was facilitated with verbal and visual cuing. Billing Therapeutic Exercise Treatment Minutes: 41 Skilled Treatment Time Minutes (timed and untimed codes): 41 Total Session Time (minutes): 41 Session Start Time : 843 Session Stop Time : 924 GER Bynum PT documented in this encounter [facility] 05-08-2023 Miscellaneous Notes Patient has been identified by name and date of : No Patient phones for refill(s): Requested Prescriptions Pending Prescriptions Disp Refills famotidine (PEPCID) 40 mg tablet [Pharmacy Med Name: FAMOTIDINE 40 MG Tablet] 90 tablet 3 Sig: take 1 tablet every day Date of last office visit in primary care: 04/22/2023 Date of next office visit in primary care: 10/24/2023 Please advise. Thank you. Radha Ariza LPN. documented in this encounter [facility] 05-07-2023 History of Presen t illness Narrative Per Dr. Castillo, Gertrude was provided with a gel bunion sleeve, size L/XL, and instructed/educated in its application, wear, and care. All questions were answered, and patient was able to demonstrate competence with the necessary skills to utilize the above equipment. Maxine Anders RN Images from the original note were not included. Consultation requested by Dr. Lambert for an opinion regarding right foot pain. My final recommendations will be communicated back to the requesting physician by way of shared Medical record or letter to requesting physician via US mail. Initial Podiatric Office Visit: Chief Complaint: This 83 year old female who presents with chief complaint:right 2nd toe pain HPI Patient presents to clinic for evaluation of right foot pain Specifically, patient via reporting, complains of pain to 2nd toe anytime she is walking. Patient does not do anything for the pain. Also complains of painful toenails PAIN EVALUATION 05/06/2023 1554 Pain Level: 5 Pain Location: Toe Description: Aching;Dull;Throbbing Duration Amount of Time: 2 Duration Units: Hours Frequency: Intermittent Comments: Goes away without treatment but comes back Hemoglobin A1C (%) Date Value 07/10/2022 5.3 10/03/2021 5.4 04/12/2018 5.3 03/12/2017 5.5 PCP: Vanessa Her MD 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 colon polyps Dementia without behavioral disturbance (HCC) Diverticulitis of colon with hemorrhage Esophageal reflux GERD Hemorrhage of gastrointestinal tract, unspecified 05/23/2001 Internal hemorrhoids without mention of complication 05/23/2001 Unspecified essential hypertension Current Outpatient Medications Medication Sig memantine (NAMENDA) 5 mg tablet Take 1 tablet by mouth two times a day. Please start by taking 5 mgs once a day and increase to taking 5 mgs 2 times a day pravastatin (PRAVACHOL) 20 mg tablet take 1 tablet every day sertraline (ZOLOFT) 50 mg tablet Take 1 tablet by mouth once daily. Ipratropium [place] (ATROVENT) 21 mcg (0.03 %) nasal spray Use 2 Sprays in the nose every 12 hours. levothyroxine (LEVOXYL) 112 mcg tablet Take 1 tablet by mouth once daily. metoprolol succinate ER (TOPROL XL) 50 mg 24 hr tablet Take 1 tablet by mouth once daily. famotidine (PEPCID) 40 mg tablet Take 1 tablet by mouth once daily. Uuzfkulurvyoy-Umvkamsk-Leeydz (CENTRUM SILVER) Tab Take 1 tablet by mouth once daily. No current facility-administered medications for this visit. ALLERGIES Allergen Reactions Bactrim Ds [Sulfame* blisters in mouth, edema Furadantin [Nitrofu* Hives Macrobid [Nitrofura* Diarrhea Premarin [Conjugate* Provera [Medroxypro* Sulfamethoxazole Swelling Trimethoprim Swelling PAST SURGICAL HISTORY Procedure Laterality Date COLONOSCOPY 01/08/2017 COLONOSCOPY FLX DX W/COLLJ SPEC WHEN PFRMD ,05/24 Colonoscopy COLONOSCOPY FLX DX W/COLLJ SPEC WHEN PFRMD 08/23/2006 diverticulosis LAPAROSCOPY SURG CHOLECYSTECTOMY 2002 Cholecystectomy, lap PAST SURGICAL HISTORY OF 01/2007 left knee meniscus repair SALPINGO-OOPHORECTOMY COMPL/PRTL UNI/BI SPX Salpingo-oophorectomy b/l TOTAL ABDOMINAL HYSTERECT W/WO RMVL TUBE OVARY Hysterectomy, SHEN FAMILY HISTORY Problem Relation Age of Onset Alzheimer's Disease Father 81 Thyroid Sister colitis Colon Cancer No Family History Social History Tobacco Use Smoking status: Former Types: Cigarettes Quit date: 1998 Years since quittin.1 Smokeless tobacco: Never Vaping Use Vaping Use: Never used Substance Use Topics Alcohol use: Yes Comment: occasionally - bottle of wine share once monthly (02/2016) Drug use: No REVIEW OF SYSTEMS GENERAL: Negative for Malaise, significant weight loss, fever RESPIRATORY: Negative for cough, wheezing and shortness of breath CARDIOVASCULAR: Negative for chest pain, leg swelling and palpitations GI: Negative for abdominal discomfort, blood in stools or black stools and change in bowel habits : Negative for dysuria, frequency and incontinence MUSCULOSKELETAL: Negative for joint pain or swelling, back pain, and muscle pain. SKIN: Negative for lesions, rash, and itching. HEMATOLOGY/LYMPHOLOGY Negative for prolonged bleeding, bruising easily, and swollen nodes. ENDOCRINE: Negative for cold or heat intolerance, polyuria, polydipsia and goiter. NEURO: negative Physical Exam: Constitutional: Pt is a well developed 83 year old female who is alert, oriented and cooperative Eyes: Following during examination. No redness or drainage. Respiratory: RR normal and nonlabored. Even breathing. No evidence of distress or shortness of breath. Psychology: Patient is engaged during conversation. Normal affect and mood. Does not appear depressed or anxious during encounter. Vascular: Dorsalis pedis and posterior tibial pulses palpable as b/l Capillary Fill time < 5 seconds to digits 1-5 b/l Skin temperature warm to warm proximal to distal b/l Hair growth present to digits Neurological: intact light touch/epicritic sensation b/l intact protective sensation no significant neurological deficits Dermatological: Nails 1-5 b/l appear elongated, discolored, painful. Webspaces clean and dry 1-4 b/l. Skin appears well hydrated and supple. good color, texture, turgor. No open lesions present. Superficial callus of right 2nd toe medial aspect Musculoskeletal/Orthopaedic: Patient has pain to palpation of right 2nd toe There is dorsal medial deviation of right 2nd toe. Dorsal spurring of right 1st metatarsal head. Foot type is neutral structurally AJ ROM is decreased with knee extended and flexed 1st MPJ is absent when loaded and no pain or crepitus are noted with ROM. MTJ, STJ are full and free of pain and crepitus. 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 Medial deviation of toes 2-5 right ASSESSMENT: (M20.5X1) Acquired hallux limitus of right foot (primary encounter diagnosis) (M20.61) Deformity of toe of right foot (M79.674) Pain of toe of right foot (B35.1) Onychomycosis (M79.675) Pain in toe of left foot (M79.674) Pain in toe of right foot (L84) Callus PLAN: 1. History and physical examination performed. 2. XR reviewed with patient and interpreted today 3. Discussed pain in right foot. Patient reports pain in 2nd toe and only 2nd toe. She obviously has arthritis of right 1st mtpj and dorsal medial deviation of 2nd toe. She also has medial deviation of 3rd-5th toes. This results in a 2nd toe that has no where to go but dorsal medially. Options include conservative care including padding and /or use of lambs wool. If the 2nd toe is the only problem and she wanted to address this surgically, one could consider reconstruction of all toes which I don't foresee being a plan that she will be able to tolerate from a recovery stand point vs an isolated 2nd toe amputation. For now, they would like to try padding. 4. I am going to place gel padding on 2nd toe and gel padding on top of dorsal spur to avoid rubbing. Use of wider toe box shoe can also be of benefit. 5. Callus reduced to right 2nd toe with dremmel 6. Toenails 1-5 b/l debrided in length and thickness. Bg Castillo DPM Podiatry [address] [facility] [address] Dept: [phone] Dept AMB ROOMING INTAKE FLOWSHEET DATA Pain Pain Level: 5 Pain Location: Toe Description: Aching, Dull, Throbbing Duration Amount of Time: 2 Duration Units: Hours Frequency: Intermittent Comments: Goes away without treatment but comes back Patient presents with: Right 2nd Toe - New Patient, Pain Patient referred by Meagan Lambert for deformity of R 2nd toe that is painful to patient. Patient has dementia and normally provides history. is with patient today for appointment. documented in this encounter [facility] 05-07-2023 History of Presen t illness Narrative Radiology Service Progress Note PATIENT NAME: Gertrude Flores DATE OF SERVICE: May 07, 2023 TIME: 9:56 AM PATIENT IDENTITY VERIFICATION COMPLETED USING TWO (2) IDENTIFIERS: Name and Date of confirmed by patient verbally. FALL SCREENING: Has the patient had 2 falls in the last year or 1 fall with injury or currently using an Ambulatory Assistive Device (Walker, Cane, Wheelchair, Crutches, etc.)? No PATIENT GENDER DATA: Female. status: : No status: NO. PATIENT RELEVANT IMPLANT DATA REVIEWED: Not Applicable PATIENT PRESENTS WITH AN IMPLANTABLE OR ATTACHED CONTROL EQUIPMENT ELECTRICIAN: No RADIOLOGY DEPARTMENT: General X-ray: Exam(s) Completed: Lower Extremity X-Ray(s): Foot, Right and Wt. Bearing PERIPHERAL IV DATA: Not applicable SIGNED BY: RT Brad(R) May 07, 2023 9:56 AM documented in this encounter [facility] 05-03-2023 History of Presen t illness Narrative Program_ID:[id number] Access Code: [email or web address] URL: [email or web address] Date: 05-03-2023 Prepared By: Tanna Orellana Program Notes Exercises - Supine Quad Set - 1-2 x daily - 7 x weekly - 1 sets - 10 reps - Supine Active Straight Leg Raise - 1 x daily - 7 x weekly - 2 sets - 10 reps Episode Visit Count: 1 Therapist That Will Accept/Oversee The Plan Of Care: Tanna Orellana Start of Care Date: 05/03/23 Onset Date: 09/22/22 Plan of Care Certification Date: 05/03/23 Next Certification Due Date: 07/02/23 Patient Identified by Name and Date of : Yes REHABILITATION AND SPORTS THERAPY PHYSICAL THERAPY EVALUATION PLAN OF CARE: Assessment: Gertrude Flores presents with diagnosis of chronic pain of left knee and instability that interferes with stair negotiation, rising from a chair, walking in the community . She presents with impairments in flexibility, gait, overall function, range of motion, and strength. Patient did not complete the PROMIS (Patient Reported Outcome Measures Information System). Prognosis for therapy is Good due to: current objective clinical presentation, good overall health status, good support system/ coping skills, Prognosis may be limited due to memory deficits . She will benefit from skilled therapy services to meet the goals established for this plan of care as noted below. Goals for Episode of Care: created on 05/03/23 through 07/02/23 [place] in home exercise program. Patient will decrease pain rating by 2 points to meet minimal clinical important difference for numeric pain rating scale. Patient will increase active ROM of L knee to 0 deg flexion to allow pt to to improve performance of ADLs and to improve gait mechanics / gait pattern . Patient will demonstrate increase in L LE strength to 5/5 during manual muscle testing in order to improve function for home management tasks, leisure / recreation skills, and prior functional tasks. Patient will increase flexibility of L hamstrings to 80-90 degrees SLR to improve ability to maintain proper posture, improve mechanics, and decrease pain. Perform stairs, walking on gravel driveway, and community walking without pain. Normal gait. Patient Goals: To not have her knee give out. Planned Interventions, Frequency, and Duration: Current Frequency: 1x/week Duration: 8 weeks Total Number of Visits Planned: 8 Planned Treatment Interventions: Therapeutic exercise (21668), Manual therapy (53995), Self-nursing home management (17233), Gait Training (70746), Patient/Family/Caregiver Education PLAN FOR NEXT VISIT: Assess response to home exercises. Review HEP and modify/progress as appropriate. May add seated stepper or stationary bike. Progress exercises, add stretches. Patient demonstrates good understanding of plan of care and treatment. The above goals and plan of care were discussed and agreed upon by patient/family. SUBJECTIVE: Pt reports pain L knee for about 6-8 months. Denies any incident or precipitating activity. If I do too much of anything. Most problematic with stair negotiation and walking on gravel driveway. Pt's present throughout eval and treatment and contributed to subjective history. Patient Goals: To not have her knee give out. Functional Limitations: stair negotiation, rising from a chair, walking in the community Home Environment Patient Lives With: Spouse Home Type: Multi-Level with First Floor Set-Up (2 steps into garage adn 1 step to back porch) Entry To Home: Stairs (no railing) Number Of Stairs Into Home: 2 Tub/Shower Type: shower with small ledge to step over, denies any difficulty Intake Information: Prescription present Pain: Pain Pain Level: (below 5) Pain Location: Knee - Left Frequency: Intermittent Post Treatment Pain Post Treatment Pain Level: No Change Post Treatment Pain Location: Knee - Left PROMIS Scales T-scores: mean of general population = 50. 5 points is clinically meaningfully difference Percentiles provide an indication of how the patient's score ranks in relation to the general population. Higher percentile rankings indicate better function/quality of life. 50th percentile is the average of the general population and indicates half of respondents had a worse score. OBJECTIVE MEASURES WITH LEVEL OF FUNCTION: Posture / Alignment LE Observations: Reduced knee extension in standing and gait L>R. Knee Observations L Knee Palpation Tenderness: No tenderness noted LE AROM R Knee Extension: -10 Degrees R Knee Flexion: 137 Degrees R Ankle Dorsiflexion: 17 Degrees L Knee Extension: -17 Degrees L Knee Flexion: 135 Degrees L Ankle Dorsiflexion: 17 Degrees LE Flexibility Flexibility: Straight Leg Raise R SLR Flexibility: 90deg L SLR Flexibility: 70deg, tightness LE Strength R LE Strength: 4+/5 L LE Strength: 4+/5 Special Tests - Knee Knee Special Tests: Anterior Drawer, Christina, iBbi's Test, Valgus stress at 0 degrees, Valgus stress at 30 degrees, Varus stress at 0 degrees, Varus stress at 30 degrees Anterior Drawer: Left Negative Christina: Left Negative Bibi's Test: Left Negative Valgus stress at 0 degrees: Left Negative Valgus stress at 30 degrees: Left Negative Varus stress at 0 degrees: Left Negative Varus stress at 30 degrees: Left Negative Gait Gait: Independent Gait Device: None Gait Deviations: Left Lower Extremity Gait Deviations Left Lower Extremity: Knee flexion during stance increased, Lacks full knee extension during terminal swing, Lacks hip extension beyond mid-stance Pt demonstrated confusion with some of her comments during exercises today. Had to redirect her a few times and required multiple verbal and physical cues for correct performance of exercises. Education: Education Learning Preferences: Demonstration, Explanation Barriers: Cognitive Limitations Learning/educational needs: Home exercise program, Plan of Care Education Provided: Yes, see treatment interventions for education provided Education Provided To: Patient, Caregiver (Pt's .) Education Mode/Type: Demonstration, Explanation/Discussion, Literature/Printed Materials, Performance Response to Education/Teach Back: States/Identifies, Return Demonstration TREATMENT: PT Treatment Interventions: Therapeutic Exercise Evaluation Therapeutic Exercise: 1: *quad sets with small towel roll under knee, 5 sec holds x 10 2: *SLR 2 x 10 each leg Skilled Intervention: Patient was educated in proper exercise technique and purpose for exercises. Skilled judgment was used in selection of appropriate interventions. Provided written instruction for home exercise program to facilitate proper performance and compliance. Correct performance of therapeutic exercises was facilitated with verbal and visual cuing. Patient education as noted. Billing * Evaluation Low Complexity: 1 Unit Therapeutic Exercise Treatment Minutes: 26 Skilled Treatment Time Minutes (timed and untimed codes): 48 Total Session Time (minutes): 48 Session Start Time : 1117 Session Stop Time : 1205 Tanna Orellana PT documented in this encounter [facility] 2023 History of Presen t illness Narrative Surgical mask, face shield, N95, and gloves worn for all in-person care. 2023 Patient presents with: Covid19 Concern: + rapid x this AM, cough, ST, MARTINEZ, congestion x1 day SUBJECTIVE: This is a 83 year old that is here today for concern for URI symptoms and COVID. Here with her ., HPI per her and her . The patient complains of cough and sinus congestion/pressure/drainage x 3 days (03/22). +Home OCVID test last night. He brings in the test to show me- positive. He wants COVID antivirals. She denies fever, chills, sweats, or fatigue. She denies wheezing, shortness of breath, increased WOB, or chest pain. COVID exposure: none Influenza exposure: none RSV exposure: none Covid Immunization Dates Covid-19 Vaccine (Series Information) Completed 02/09/2023 Imm Admin: COVID-19 vaccine, age 12+ yr, season ([employer]) 10/17/2022 Postponed until 10/18/2023 by Meagan Lambert APRN.DISHTANK OPERATOR (Declined at this time) 02/03/2022 Imm Admin: COVID-19 vaccine, age 12+ yr, bivalent (Only [place]) 09/20/2021 Imm Admin: COVID-19 original vaccine, age 12+ yr, monovalent (PFIZER-BIONTECH - ARIAS TOP) 01/04/2021 Imm Admin: COVID-19 original vaccine, age 12+ yr, monovalent (PFIZER-BIONTECH - PURPLE TOP) Only the first 5 history entries have been loaded, but more history exists. COVID vaccine this year: nyes Influenza vaccine this year: yes RSV vaccine this year: yes Asthma: none Pneumonia: none Tobacco: none Pain on scale of 0-10 with 0 being no pain and 10 being greatest pain: 0 Nothing makes the symptoms better. Nothing makes them worse. Self-treatment:. none The severity is mild and the symptoms are not improving. The patient did not have a similar problem in the last 3 months. The patient did not take any antibiotics in the last 3 months. Barriers to learning: none. Reviewed meds, OTCs, herbals or supplements. Reviewed allergies, medications, social history, and past medical history. 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 colon polyps Dementia without behavioral disturbance (HCC) Diverticulitis of colon with hemorrhage Esophageal reflux GERD Hemorrhage of gastrointestinal tract, unspecified 05/23/2001 Internal hemorrhoids without mention of complication 05/23/2001 Unspecified essential hypertension ALLERGIES Bactrim Ds [Sulfamethoxazole-Trimethoprim], Furadantin [Nitrofurantoin], Macrobid [Nitrofurantoin Monohyd/M-Cryst], Premarin [Conjugated Estrogens], Provera [Medroxyprogesterone], Sulfamethoxazole, and Trimethoprim MEDICATIONS Current Outpatient Medications Medication Sig nirmatrelvir tablet 150 mg and ritonavir tablet 100 mg in a dose pack (PAXLOVID) Administer ONE pink nirmatrelvir 150 mg tablet and ONE white ritonavir 100 mg tablet for a total of two tablets twice daily. predniSONE (DELTASONE) 10 mg tablet Take 4 tabs daily for 3 days, then 2 tabs daily for 3 days, then 1 tab daily for 3 days with food. cetirizine (ZYRTEC) 10 mg tablet Take 1 tablet by mouth once daily for 7 days. pravastatin (PRAVACHOL) 20 mg tablet take 1 tablet every day sertraline (ZOLOFT) 50 mg tablet Take 1 tablet by mouth once daily. Ipratropium [place] (ATROVENT) 21 mcg (0.03 %) nasal spray Use 2 Sprays in the nose every 12 hours. levothyroxine (LEVOXYL) 112 mcg tablet Take 1 tablet by mouth once daily. metoprolol succinate ER (TOPROL XL) 50 mg 24 hr tablet Take 1 tablet by mouth once daily. famotidine (PEPCID) 40 mg tablet Take 1 tablet by mouth once daily. memantine (NAMENDA) 5 mg tablet Take 1 tablet by mouth twice daily. Please start by taking 5 mgs once a day and increase to taking 5 mgs 2 times a day Lbozruoaarbyz-Zvcszgey-Pmbyhp (CENTRUM SILVER) Tab Take 1 tablet by mouth once daily. No current facility-administered medications for this visit. Medications and allergies reviewed by this provider. SOCIAL HISTORY Social History Tobacco Use Smoking status: Former Types: Cigarettes Quit date: 1998 Years since quittin.0 Smokeless tobacco: Never Vaping Use Vaping Use: Never used Substance Use Topics Alcohol use: Yes Comment: occasionally - bottle of wine share once monthly (02/2016) Drug use: No REVIEW OF SYSTEMS Review of Systems ROS: constitutional: concern for covid, fatigue, HENT-sinus symptoms, Eyes- neg, heart-neg, respiratory-Cough, GI-neg, -neg, skin-neg, Allergy- neg, lymph-neg, neuro-neg, psych-neg- All systems neg except as noted above in HPI. OBJECTIVE: BP 171/85 Pulse 69 Temp 36.6 C (97.8 F) Resp 18 Wt 79.8 kg (176 lb) SpO2 99% BMI 28.41 kg/m . Vital signs reviewed by this provider. Physical Exam Vitals reviewed. Constitutional: General: She is not in acute distress. Appearance: Normal appearance. She is well-developed and normal weight. She is not ill-appearing, toxic-appearing or diaphoretic. HENT: Head: Normocephalic and atraumatic. No right periorbital erythema or left periorbital erythema. Salivary Glands: Right salivary gland is not diffusely enlarged or tender. Left salivary gland is not diffusely enlarged or tender. Right Ear: Tympanic membrane, ear canal and external ear normal. Left Ear: Tympanic membrane, ear canal and external ear normal. Nose: Nose normal. No congestion or rhinorrhea. Right Sinus: No maxillary sinus tenderness or frontal sinus tenderness. Left Sinus: No maxillary sinus tenderness or frontal sinus tenderness. Mouth/Throat: Lips: [place]. No lesions. Mouth: Mucous membranes are moist. No oral lesions. Dentition: No gum lesions. Tongue: No lesions. Tongue does not deviate from midline. Palate: No mass and lesions. Pharynx: Oropharynx is clear. No pharyngeal swelling, oropharyngeal exudate, posterior oropharyngeal erythema or uvula swelling. Tonsils: No tonsillar exudate or tonsillar abscesses. Eyes: General: Lids are normal. No scleral icterus. Right eye: No discharge. Left eye: No discharge. Extraocular Movements: Extraocular movements intact. Conjunctiva/sclera: Conjunctivae normal. Pupils: Pupils are equal, round, and reactive to light. Pupils are equal. Cardiovascular: Rate and Rhythm: Normal rate and regular rhythm. Heart sounds: Normal heart sounds. Pulmonary: Effort: Pulmonary effort is normal. Breath sounds: Normal breath sounds and air entry. Musculoskeletal: Cervical back: Full passive range of motion without pain. No spinous process tenderness or muscular tenderness. Lymphadenopathy: Head: Right side of head: No submental, submandibular, tonsillar, preauricular or posterior auricular adenopathy. Left side of head: No submental, submandibular, tonsillar, preauricular or posterior auricular adenopathy. Cervical: No cervical adenopathy. Skin: General: Skin is warm. Capillary Refill: Capillary refill takes less than 2 seconds. Findings: No rash. Neurological: General: No focal deficit present. Mental Status: She is alert and oriented to person, place, and time. Cranial Nerves: No facial asymmetry. Psychiatric: Attention and Perception: Attention normal. Behavior: Behavior is cooperative. Gertrude Flores - Meets symptom-based criteria for testing and is high risk. - Discussed symptom monitoring and supportive care - Red flag symptoms requiring follow up discussed ASSESSMENT/PLAN: 1. COVID - ICD9: 079.89, ICD10: U07.1 X 3 days (03/22/23) Normal exam Renal dosing Paxlovid (GFR <60) - NIRMATRELVIR 150 MG-RITONAVIR 100 MG TABLETS IN A DOSE PACK Encourage fluids, rest. Tylenol and Motrin for pain and fever Saline Nasil spray, Neti Pot, vaporizer, Vicks. Try Cepocol lozenges or Chloraseptic throat spray. Warm salt water gargles. Cough and deep breath- 10x/hr while awake. May use OTC Mucinex as directed for cough Call PCP if sx worsen or no better. If symptoms worsen, or new symptoms develop go to ER. If you have worsening of breathing or breathing changes- go to ER. If you have persistent fever unrelieved by Tylenol/Motrin- go to the ER. Follow up as needed. Barriers to learning: none. The patient verbalizes understanding and is in agreement with plan of care. This patient encounter involved the screening or treatment of novel coronavirus infection (COVID-19). - Red flags for in person care discussed - All questions answered Kinga Melendrez PA-C Medical Decision Making: Problems: Moderate: Acute illness with systemic symptoms Risk: Low: Low risk from testing/treatment Moderate: Drug management Medical Decision Making Level: 4 - Moderate I spent a total of 20 minutes on the date of the service which included preparing to see the patient, yyjo-qu-ybpe patient care, completing clinical documentation, performing a medically appropriate examination, counseling and educating the patient/family/caregiver, and ordering medications, tests, or procedures. Nirmatrelvir/Ritonavir (Paxlovid) Considerations Paxlovid is FDA-approved for treatment of mild to moderate COVID-19 in adults who are at high risk for progression to severe COVID-19. Consider use of Paxlovid in the following examples of high risk patients (list is not all inclusive): Age over 65 years Cardiovascular and cerebrovascular disease Chronic disease state (kidney, liver, lung) Diabetes (type 1 or type 2) Immunocompromised state (cancer, solid organ or blood stem cell transplant, HIV) Obesity Paxlovid warnings include serious drug interactions (co-administration with drugs highly dependent on CYP3A for clearance), hypersensitivity reactions, hepatotoxicity, and risk of HIV-1 resistance development. Kinga Melendrez PA-C 2023 1:04 PM documented in this encounter [facility] 2023 Instructions Kinga Melendrez PA-C - 2023 1:04 PM EST Images from the original note were not included. ASSESSMENT/PLAN: 1. COVID - X 3 days (03/22/23) - NIRMATRELVIR 150 MG-RITONAVIR 100 MG TABLETS IN A DOSE PACK Encourage fluids, rest. Tylenol and Motrin for pain and fever Saline Nasil spray, Neti Pot, vaporizer, Vicks. Try Cepocol lozenges or Chloraseptic throat spray. Warm salt water gargles. Cough and deep breath- 10x/hr while awake. May use OTC Mucinex as directed for cough Call PCP if sx worsen or no better. If symptoms worsen, or new symptoms develop go to ER. If you have worsening of breathing or breathing changes- go to ER. If you have persistent fever unrelieved by Tylenol/Motrin- go to the ER. Follow up as needed. Barriers to learning: none. The patient verbalizes understanding and is in agreement with plan of care. This patient encounter involved the screening or treatment of novel coronavirus infection (COVID-19). - Red flags for in person care discussed - All questions answered Kinga Melendrez PA-C FACT SHEET FOR PATIENTS, PARENTS, AND CAREGIVERS EMERGENCY USE AUTHORIZATION (EUA) OF PAXLOVID FOR CORONAVIRUS DISEASE 2019 (COVID-19) You are being given this Fact Sheet because your healthcare provider believes it is necessary to provide you with PAXLOVID for the treatment of dfuw-sh-iadpuhyd coronavirus disease (COVID-19) caused by the SARS-CoV-2 virus. This Fact Sheet contains information to help you understand the risks and benefits of taking the PAXLOVID you may receive. This Fact Sheet also contains information about how to take PAXLOVID and how to report side effects or problems with the appearance or packaging of PAXLOVID. The U.S. Food and Drug Administration (FDA) has issued an Emergency Use Authorization (EUA) to make PAXLOVID available for the treatment of fkjo-am-otrxpoew COVID-19 in adults and children 12 years of age and older weighing at least 88 pounds (40 kg) who are at high risk for progression to severe COVID-19, including hospitalization or (for more details about an EUA please see What is an Emergency Use Authorization? at the end of this document). Read this Fact Sheet for information about PAXLOVID. Talk to your healthcare provider about your options or if you have any questions. It is your choice to take PAXLOVID. What is COVID-19? COVID-19 is caused by a virus called a coronavirus. You can get COVID-19 through close contact with another person who has the virus. COVID-19 illnesses have ranged from very uqxp-il-guqicl, including illness resulting in . While information so far suggests that most COVID-19 illness is mild, serious illness can happen and may cause some of your other medical conditions to become worse. Older people and people of all ages with severe, long lasting (chronic) medical conditions like heart disease, lung disease, and diabetes, for example seem to be at higher risk of being hospitalized for COVID-19. What is PAXLOVID? PAXLOVID is a medicine that is available under EUA for the treatment of lpsd-qq-rzpvszle COVID-19 in adults and children 12 years of age and older weighing at least 88 pounds (40 kg) who are at high risk for progression to severe COVID-19, including hospitalization or . Although PAXLOVID is FDA-approved for the treatment of COVID-19 in certain adults (see section What other treatment choices are there?), PAXLOVID use in children remains investigational because it is still being studied. There is limited information about the safety and effectiveness of using PAXLOVID to treat children with ieqn-dy-xmzalvzn COVID-19. What is the most important information I should know about PAXLOVID? PAXLOVID can interact with other medicines causing severe or life-threatening side effects or . It is important to know the medicines that should not be taken with PAXLOVID. Do not take PAXLOVID if: you are taking any of the following medicines: o alfuzosin o amiodarone o apalutamide o carbamazepine o colchicine o dihydroergotamine o dronedarone o eletriptan o eplerenone o ergotamine o finerenone o flecainide o flibanserin o ivabradine o lomitapide o lovastatin o lumacaftor/ivacaftor o lurasidone o methylergonovine o midazolam (oral) o naloxegol o phenobarbital o phenytoin o pimozide o primidone o propafenone o quinidine o ranolazine o rifampin o rifapentine o Luz s Wort (hypericum perforatum) o sildenafil (Revatio ) for pulmonary arterial hypertension o silodosin o simvastatin o tolvaptan o triazolam o ubrogepant o voclosporin These are not the only medicines that may cause serious or life-threatening side effects if taken with PAXLOVID. PAXLOVID may increase or decrease the levels of multiple other medicines. It is very important to tell your healthcare provider about all of the medicines you are taking because additional laboratory tests or changes in the dose of your other medicines may be necessary during treatment with PAXLOVID. Your healthcare provider may also tell you about specific symptoms to watch out for that may indicate that you need to stop or decrease the dose of some of your other medicines. you are allergic to nirmatrelvir, ritonavir, or any of the ingredients in PAXLOVID. See the end of this leaflet for a complete list of ingredients in PAXLOVID. See What are the important possible side effects of PAXLOVID? for signs and symptoms of allergic reactions. What should I tell my healthcare provider before I take PAXLOVID? Tell your healthcare provider if you: have kidney problems. You may need a different dose of PAXLOVID. have liver problems, including hepatitis. have Human Immunodeficiency Virus 1 (HIV-1) infection. PAXLOVID may lead to some HIV-1 medicines not working as well in the future. are or plan to become . It is not known if PAXLOVID can harm your unborn baby. Tell your healthcare provider right away if you are or if you become . are or plan to breastfeed. It is not known if PAXLOVID can pass into your breast milk. Talk to your healthcare provider about the best way to feed your baby during treatment with PAXLOVID. Some medicines may interact with PAXLOVID and may cause serious side effects. Tell your healthcare provider about all the medicines you take, including prescription and taqp-cgu-fhzvlan medicines, vitamins, and herbal supplements. Your healthcare provider can tell you if it is safe to take PAXLOVID with other medicines. You can ask your healthcare provider or pharmacist for a list of medicines that interact with PAXLOVID. Do not start taking a new medicine without telling your healthcare provider. Tell your healthcare provider if you are taking combined control (hormonal contraceptive). PAXLOVID may affect how your hormonal contraceptives work. Females who are able to become should use another effective alternative form of contraception or an additional barrier method of contraception during treatment with PAXLOVID. Talk to your healthcare provider if you have any questions about contraceptive methods that might be right for you. How do I take PAXLOVID? Take PAXLOVID exactly as your healthcare provider tells you to take it. PAXLOVID consists of 2 medicines: nirmatrelvir tablets and ritonavir tablets. The 2 medicines are taken together 2 times each day for 5 days. Nirmatrelvir is an oval, pink tablet. Ritonavir is a white or off-white tablet. PAXLOVID is available in 2 Dose Packs (see Figures A and B below). Your healthcare provider will prescribe the PAXLOVID Dose Pack that is right for you. If you have kidney disease, your healthcare provider may prescribe a lower dose (see Figure B). Talk to your healthcare provider to make sure you receive the correct Dose Pack. Do not remove your PAXLOVID tablets from the blister card before you are ready to take your dose. Take your first dose of PAXLOVID in the morning or evening, depending on when you pharmacy picking tech your prescription, or as your healthcare provider tells you to. Swallow the tablets whole. Do not chew, break, or crush the tablets. Take PAXLOVID with or without food. Do not stop taking PAXLOVID without talking to your healthcare provider, even if you feel better. If you miss a dose of PAXLOVID within 8 hours of the time it is usually taken, take it as soon as you remember. If you miss a dose by more than 8 hours, skip the missed dose and take the next dose at your regular time. Do not take 2 doses of PAXLOVID at the same time. If you take too much PAXLOVID, call your healthcare provider or go to the nearest hospital emergency room right away. If you are taking a ritonavir- or cobicistat-containing medicine to treat hepatitis C or HIV-1 infection, you should continue to take your medicine as prescribed by your healthcare provider. Talk to your healthcare provider if you do not feel better or if you feel worse after 5 days. What are the important possible side effects of PAXLOVID? PAXLOVID may cause serious side effects, including: Allergic reactions, including severe allergic reactions (anaphylaxis) have happened during treatment with PAXLOVID. Stop taking PAXLOVID and get medical help right away if you get any of the following symptoms of an allergic reaction: o skin rash, hives, blisters or peeling skin o painful sores or ulcers in the mouth, nose, throat or genital area o swelling of the mouth, lips, tongue or face o trouble swallowing or breathing o throat tightness o hoarseness Liver Problems. Tell your healthcare provider right away if you get any of the following signs and symptoms of liver problems during treatment with PAXLOVID: o loss of appetite o yellowing of your skin and the white of eyes o dark-colored urine o pale colored stools o itchy skin o stomach-area (abdominal) pain The most common side effects of PAXLOVID include: altered sense of taste and diarrhea. Other possible side effects include: headache vomiting abdominal pain nausea high blood pressure feeling generally unwell These are not all the possible side effects of PAXLOVID. For more information, ask your healthcare provider or pharmacist. What other treatment choices are there? PAXLOVID is FDA-approved for the treatment of uape-sw-orsgnzey COVID-19 in certain adults; however, there are not sufficient quantities of the approved presentations (i.e., dose packs) of PAXLOVID at this time. This EUA continues to authorize the emergency use of PAXLOVID for the approved patient population to ensure continued access in order to meet the public health need. VEKLURY (remdesivir) is FDA-approved for the treatment of stsh-zo-cgxcwmyo COVID-19 in certain adults and children. Talk with your healthcare provider to see if VEKLURY is appropriate for you. For information on the emergency use of other medicines that are authorized by FDA to treat people with COVID-19, please go to https://www.fda.gov/emergency-pr rantmfxwgj-rug-xnnbjytt/armando-maru hernandezf-ldkbidlzlb-nva-policy-framewor k/dvpdrcqyg-pqq-jqxdkbvqcqdcd. Your healthcare provider may talk with you about clinical trials for which you may be eligible. It is your choice to be treated or not to be treated with PAXLOVID. Should you decide not to receive it or for your child not to receive it, it will not change your standard medical care. What if I am or ? There is limited experience treating women or mothers with PAXLOVID. For a mother and unborn baby, the benefit of taking PAXLOVID may be greater than the risk from the treatment. If you are , discuss your options and specific situation with your healthcare provider. If you are , discuss your options and specific situation with your healthcare provider. How do I report side effects or problems with the appearance or packaging of PAXLOVID? Contact your healthcare provider if you have any side effects that bother you or do not go away. Report side effects or problems with the appearance or packaging of PAXLOVID (see Figures A and B above for examples of PAXLOVID Dose Packs) to FDA 159.comtch at www.fda.gov/medwatch or call 8-213-WRO-8438 or you can report side effects to [employer]. at the contact information provided below. How should I store PAXLOVID? Store PAXLOVID tablets at room temperature, between 68?F to 77?F (20?C to 25?C). Keep PAXLOVID and all medicines out of the reach of children. What if I have questions about the expiration date for my PAXLOVID? The FDA has extended the expiration date (shelf-life) for some lots of PAXLOVID. To find the extended expiration date, enter the lot number found on the side of carton or bottom of blister pack at this website: https://www.paxlovidlotexpiry.co m/ or talk with your healthcare provider. Information on the authorized shelf-life extensions for PAXLOVID may also be found at https://www.fda.gov/emergency-pr afeniqqjne-kjb-uhsjjnhp/armando-maru l-xzluwzipcn-qrk-policy-framewor k/wunsldoglg-mhfqrb-uxwnhabmb. How can I learn more about COVID-19? Ask your healthcare provider. Visit https://www.cdc.gov/COVID19. Contact your local or state public health department. What is an Emergency Use Authorization (EUA)? The [place] FDA has made PAXLOVID available under an emergency access mechanism called an Emergency Use Authorization (EUA). The EUA is supported by a [facility] and Human Services ([facility]) declaration that circumstances exist to justify the emergency use of drugs and biological products during the COVID-19 pandemic. In issuing an EUA, the FDA has determined, among other things, that based on the total amount of scientific evidence available including data from adequate and well-controlled clinical trials, if available, it is reasonable to believe that the product may be effective for diagnosing, treating, or preventing COVID-19, or a serious or life-threatening disease or condition caused by COVID-19; that the known and potential benefits of the product, when used to diagnose, treat, or prevent such disease or condition, outweigh the known and potential risks of such product; and that there are no adequate, approved, and available alternatives. All of these criteria must be met to allow for the product to be available under an EUA. The EUA for PAXLOVID is in effect for the duration of the COVID-19 declaration justifying emergency use of this product, unless the relevant EUA declaration is terminated or the EUA revoked (after which the products may no longer be used under the EUA). What are the ingredients in PAXLOVID? Active ingredient: nirmatrelvir and ritonavir Nirmatrelvir inactive ingredients: colloidal silicon dioxide, croscarmellose sodium, lactose monohydrate, microcrystalline cellulose, and sodium stearyl fumarate. Film-coating contains: hydroxy propyl methylcellulose, iron oxide red, polyethylene glycol, and titanium dioxide. Ritonavir inactive ingredients: anhydrous dibasic calcium phosphate, colloidal silicon dioxide, copovidone, sodium stearyl fumarate, and sorbitan monolaurate. The film coating may contain: colloidal anhydrous silica, colloidal silicon dioxide, hydroxypropyl cellulose, hypromellose, polyethylene glycol, polysorbate 80, talc, and titanium dioxide. Additional Information For general questions, visit the website or call the telephone number provided below. Website: wwwWeekdone Telephone number: (1-877-c19-pack) Distributed by [employer] of [employer] [address] [id number] Revised: 07/2022 documented in this encounter [facility] 03-07-2023 Note HNO ID: [id number] Author: Rossy Crocker, DO Service: ? Author Type: Physician Type: Progress Notes Filed: 03/07/2023 2:03 PM Note Text: [facility] CARDIOLOGY [facility] OUTPATIENT VISIT DATE March 07, 2023 PRIMARY CARE PHYSICIAN: Vanessa Her [address] [place] [address] HISTORY OF PRESENT ILLNESS: Ms. Flores is a 82 year old female. The patient returns for follow-up due to history of symptomatic PVCs with a negative cardiac workup as well as history of hypertension, hyperlipidemia, early dementia and hypothyroidism. She denies chest discomfort, dyspnea, orthopnea, paroxysmal nocturnal dyspnea, palpitations, near-syncope or syncope. Her who is also a patient accompanies her today. PLAN AND RECOMMENDATIONS: The patient remained stable without symptoms that would suggest angina or cardiac decompensation. On Toprol she does not feel her PVCs. Heart rate, blood pressure recent cholesterol profile are favorable. We have therefore made no additions or changes. Dietary and lifestyle modification was reemphasized to facilitate risk factor reduction. Will look forward to reevaluating her in 1 years time. Vitals: BP 128/82 Pulse 62 Ht 167.6 cm (5' 6) Wt 76.7 kg (169 lb) SpO2 97% BMI 27.28 kg/m? Physical Exam Vitals reviewed. Constitutional: General: She is not in acute distress. Appearance: Normal appearance. She is well-developed. HENT: Head: Normocephalic and atraumatic. Nose: Nose normal. Eyes: General: No scleral icterus. Right eye: No discharge. Left eye: No discharge. Pupils: Pupils are equal, round, and reactive to light. Neck: Thyroid: No thyromegaly. Vascular: No carotid bruit or JVD. Cardiovascular: Rate and Rhythm: Normal rate and regular rhythm. Heart sounds: Normal heart sounds. No murmur heard. No friction rub. No gallop. Pulmonary: Effort: Pulmonary effort is normal. No respiratory distress. Breath sounds: Normal breath sounds. No wheezing or rales. Abdominal: General: Bowel sounds are normal. Palpations: Abdomen is soft. Musculoskeletal: General: Normal range of motion. Cervical back: Normal range of motion and neck supple. Skin: General: Skin is warm and dry. Capillary Refill: Capillary refill takes less than 2 seconds. Coloration: Skin is not pale. Neurological: Mental Status: She is alert and oriented to person, place, and time. Cranial Nerves: No cranial nerve deficit. Psychiatric: Behavior: Behavior normal. Thought Content: Thought content normal. Judgment: Judgment normal. Review of Systems Constitutional: Negative for activity change and fatigue. HENT: Negative for ear pain and facial swelling. Eyes: Negative for pain and discharge. Respiratory: Negative for chest tightness and shortness of breath. Cardiovascular: Negative for chest pain, palpitations and leg swelling. Gastrointestinal: Negative for abdominal pain, blood in stool, nausea and vomiting. Endocrine: Negative for cold intolerance and heat intolerance. Genitourinary: Negative for frequency and hematuria. Musculoskeletal: Negative for arthralgias and gait problem. Skin: Negative for color change, pallor and rash. Allergic/Immunologic: Negative for immunocompromised state. Neurological: Negative for dizziness, syncope, light-headedness and headaches. Hematological: Negative for adenopathy. Does not bruise/bleed easily. Psychiatric/Behavioral: Negative for confusion. The patient is not nervous/anxious. 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 colon polyps Dementia without behavioral disturbance (HCC) Diverticulitis of colon with hemorrhage Esophageal reflux GERD Hemorrhage of gastrointestinal tract, unspecified 05/23/2001 Internal hemorrhoids without mention of complication 05/23/2001 Unspecified essential hypertension PAST SURGICAL HISTORY Procedure Laterality Date COLONOSCOPY 01/08/2017 COLONOSCOPY FLX DX W/COLLJ SPEC WHEN PFRMD ,05/24 Colonoscopy COLONOSCOPY FLX DX W/COLLJ SPEC WHEN PFRMD 08/23/2006 diverticulosis LAPAROSCOPY SURG CHOLECYSTECTOMY 2002 Cholecystectomy, lap PAST SURGICAL HISTORY OF 01/2007 left knee meniscus repair SALPINGO-OOPHORECTOMY COMPL/PRTL UNI/BI SPX Salpingo-oophorectomy b/l TOTAL ABDOMINAL HYSTERECT W/WO RMVL TUBE OVARY Hysterectomy, SHEN Social History Tobacco Use Smoking status: Former Types: Cigarettes Quit date: 1998 Years since quittin.9 Smokeless tobacco: Never Vaping Use Vaping Use: Never used Substance Use Topics Alcohol use: Yes Comment: occasionally - bottle of wine share once monthly (02/2016) Drug use: No FAMILY HISTORY Problem Relation Age of Onset Alzheimer's Disease Father 81 Thyroid Sister colitis Colon Cancer No Fa (more content not included)... [facility] 03-07-2023 History of Presen t illness Narrative Images from the original note were not included. [facility] OUTPATIENT VISIT DATE March 07, 2023 PRIMARY CARE PHYSICIAN: Vanessa Her [address] [place] [id number] HISTORY OF PRESENT ILLNESS: Ms. Flores is a 82 year old female. The patient returns for follow-up due to history of symptomatic PVCs with a negative cardiac workup as well as history of hypertension, hyperlipidemia, early dementia and hypothyroidism. She denies chest discomfort, dyspnea, orthopnea, paroxysmal nocturnal dyspnea, palpitations, near-syncope or syncope. Her who is also a patient accompanies her today. PLAN AND RECOMMENDATIONS: The patient remained stable without symptoms that would suggest angina or cardiac decompensation. On Toprol she does not feel her PVCs. Heart rate, blood pressure recent cholesterol profile are favorable. We have therefore made no additions or changes. Dietary and lifestyle modification was reemphasized to facilitate risk factor reduction. Will look forward to reevaluating her in 1 years time. Vitals: BP 128/82 Pulse 62 Ht 167.6 cm (5' 6) Wt 76.7 kg (169 lb) SpO2 97% BMI 27.28 kg/m Physical Exam Vitals reviewed. Constitutional: General: She is not in acute distress. Appearance: Normal appearance. She is well-developed. HENT: Head: Normocephalic and atraumatic. Nose: Nose normal. Eyes: General: No scleral icterus. Right eye: No discharge. Left eye: No discharge. Pupils: Pupils are equal, round, and reactive to light. Neck: Thyroid: No thyromegaly. Vascular: No carotid bruit or JVD. Cardiovascular: Rate and Rhythm: Normal rate and regular rhythm. Heart sounds: Normal heart sounds. No murmur heard. No friction rub. No gallop. Pulmonary: Effort: Pulmonary effort is normal. No respiratory distress. Breath sounds: Normal breath sounds. No wheezing or rales. Abdominal: General: Bowel sounds are normal. Palpations: Abdomen is soft. Musculoskeletal: General: Normal range of motion. Cervical back: Normal range of motion and neck supple. Skin: General: Skin is warm and dry. Capillary Refill: Capillary refill takes less than 2 seconds. Coloration: Skin is not pale. Neurological: Mental Status: She is alert and oriented to person, place, and time. Cranial Nerves: No cranial nerve deficit. Psychiatric: Behavior: Behavior normal. Thought Content: Thought content normal. Judgment: Judgment normal. Review of Systems Constitutional: Negative for activity change and fatigue. HENT: Negative for ear pain and facial swelling. Eyes: Negative for pain and discharge. Respiratory: Negative for chest tightness and shortness of breath. Cardiovascular: Negative for chest pain, palpitations and leg swelling. Gastrointestinal: Negative for abdominal pain, blood in stool, nausea and vomiting. Endocrine: Negative for cold intolerance and heat intolerance. Genitourinary: Negative for frequency and hematuria. Musculoskeletal: Negative for arthralgias and gait problem. Skin: Negative for color change, pallor and rash. Allergic/Immunologic: Negative for immunocompromised state. Neurological: Negative for dizziness, syncope, light-headedness and headaches. Hematological: Negative for adenopathy. Does not bruise/bleed easily. Psychiatric/Behavioral: Negative for confusion. The patient is not nervous/anxious. 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 colon polyps Dementia without behavioral disturbance (HCC) Diverticulitis of colon with hemorrhage Esophageal reflux GERD Hemorrhage of gastrointestinal tract, unspecified 05/23/2001 Internal hemorrhoids without mention of complication 05/23/2001 Unspecified essential hypertension PAST SURGICAL HISTORY Procedure Laterality Date COLONOSCOPY 01/08/2017 COLONOSCOPY FLX DX W/COLLJ SPEC WHEN PFRMD ,05/24 Colonoscopy COLONOSCOPY FLX DX W/COLLJ SPEC WHEN PFRMD 08/23/2006 diverticulosis LAPAROSCOPY SURG CHOLECYSTECTOMY 2002 Cholecystectomy, lap PAST SURGICAL HISTORY OF 01/2007 left knee meniscus repair SALPINGO-OOPHORECTOMY COMPL/PRTL UNI/BI SPX Salpingo-oophorectomy b/l TOTAL ABDOMINAL HYSTERECT W/WO RMVL TUBE OVARY Hysterectomy, SHEN Social History Tobacco Use Smoking status: Former Types: Cigarettes Quit date: 1998 Years since quittin.9 Smokeless tobacco: Never Vaping Use Vaping Use: Never used Substance Use Topics Alcohol use: Yes Comment: occasionally - bottle of wine share once monthly (02/2016) Drug use: No FAMILY HISTORY Problem Relation Age of Onset Alzheimer's Disease Father 81 Thyroid Sister colitis Colon Cancer No Family History ALLERGIES Allergen Reactions Bactrim Ds [Sulfame* blisters in mouth, edema Furadantin [Nitrofu* Hives Macrobid [Nitrofura* Diarrhea Premarin [Conjugate* Provera [Medroxypro* Sulfamethoxazole Swelling Trimethoprim Swelling CURRENT MEDICATIONS: pravastatin (PRAVACHOL) 20 mg tablet take 1 tablet every day sertraline (ZOLOFT) 50 mg tablet Take 1 tablet by mouth once daily. Ipratropium [place] (ATROVENT) 21 mcg (0.03 %) nasal spray Use 2 Sprays in the nose every 12 hours. levothyroxine (LEVOXYL) 112 mcg tablet Take 1 tablet by mouth once daily. metoprolol succinate ER (TOPROL XL) 50 mg 24 hr tablet Take 1 tablet by mouth once daily. famotidine (PEPCID) 40 mg tablet Take 1 tablet by mouth once daily. memantine (NAMENDA) 5 mg tablet Take 1 tablet by mouth twice daily. Please start by taking 5 mgs once a day and increase to taking 5 mgs 2 times a day Gypaumotjlfcb-Mdpeniod-Pznomk (CENTRUM SILVER) Tab Take 1 tablet by mouth once daily. donepezil (ARICEPT) 10 mg disintegrating tablet Take 1 tablet by mouth once daily. (Patient not taking: Reported on 03/07/2023) ECG NSR Rossy Crocker DO, FACC, FACOI Drug Safety Scientist, [facility] Ambulatory Cardiology Drug Safety Scientist, [facility] Cardiac Rehabilitation Drug Safety Scientist, [facility] Cardiac Rehabilitation Drug Safety Scientist, [facility] Drug Safety Scientist, [facility] Ambulatory Cardiology Clinical Account Management Specialist Profressor of Medicine, [facility] Staff Platform Consultant, [facility] Tomisich Department of Cardiovascular Medicine/Heart and Vascular [place], [facility] Please note: This note has been produced using speech recognition software and may contain errors related to that system including nilay, punctuation, spelling, words, gender and phrases that may be inappropriate. documented in this encounter [facility] 03-04-2023 Miscellaneous Notes Please call Gertrude to schedule an updated cardiology appointment. IONA 12/12/20 Irish Macias scheduled documented in this encounter [facility] 11-20-2022 Instructions Lacie Madrigal LPN - 11/20/2022 10:27 AM EDT Instructions After SKIN EXCISION-SUTURES You can remove the dressing in two days. If the dressing becomes soaked or had significant drainage, the dressing should be changed. If there is minor bleeding from this skin edge, you should hold pressure on the incision until the bleeding stops. If there is continued bleeding, you should contact our office immediately. \You do not need to leave a dressing on the wound after two days. If the wound shows signs of redness, inflammation, or purulent drainage, you should contact our office immediately. You should keep the wound dry for the first two days. After that time, you may wash the wound with gentle soap and water. The wound should not be immersed in a pool, bathtub, or even hot tub. If you have any questions or concerns please feel free to call our office at [phone] and ask to be transferred to General Surgery. Thank you for choosing [facility] - General Surgery. documented in this encounter [facility] 11-20-2022 History of Presen t illness Narrative Preoperative diagnosis: 2 cm subcutaneous lesion to left arm Postoperative diagnosis: The same Procedure: Excision of a 2 cm subcutaneous lesion the left arm Surgeon: [place] Procedure: Left arm was sterilely prepped and draped in usual fashion. 1% lidocaine plain was injected. A 2 cm incision was made. Dissected down removed a fatty lesion in its entirety and sent to pathology for permanent sectioning. Electrocautery was used for good hemostasis. I brought the wound together with interrupted 3-0 Vicryl. Steri-Strips were applied. Sterile dressings were applied. Patient tolerated the procedure well. documented in this encounter [facility] 11-20-2022 Nurse Note UNIVERSAL PROTOCOL / SAFETY CHECKLIST Procedure to be Performed: Excision of uncertain subcutaneous lesion left arm Sign In: A Moment of CARE was completed. Personnel directly involved with the procedure wore the appropriate PPE (Personal Protective Equipment). No special equipment needed. Patient/Surrogate Stated/Verified: PATIENT VERIFIED(optional for EMERGENT procedures): Patient name, Date of , Relevant allergies, and The intended procedure Time Out Communication: Intended patient and procedure match the source documents. Consent documented and matches the intended procedure. Relevant labs, photos, and/or imaging studies have been reviewed. Correct side/site marked and visible. Medications required for procedure verified. No fire risk assessment and interventions applicable. No implant(s) inserted. Sign Out: SIGN OUT (optional for EMERGENT procedures): All specimen containers correctly labeled. No instruments, equipment or retained foreign bodies applicable. Post-procedure follow-up management communicated and Plan of Care Visit completed when applicable. Lacie Madrigal LPN documented in this encounter [facility] 11-13-2022 History of Presen t illness Narrative HISTORY AND PHYSICAL Gertrude Flores 1940 REFERRING PHYSICIAN: Meagan Lambert APRN.DISHTANK OPERATOR CHIEF COMPLAINT: Consult (Soft tissue mass Left upper arm) HPI: The patient is a 82 year old female with a complaint of subcutaneous lesion on her left arm. This has been there for an undisclosed amount of time but she has noticed it recently and she thinks that it has been getting larger. She has complained of occasional tenderness to this area. She has not had any obvious trauma to the area that she can recall.. The patient is being seen by me today at the request of Dr. Lambert for my opinion and advice regarding Soft tissue mass Tenderness. 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 colon polyps Dementia without behavioral disturbance (HCC) Diverticulitis of colon with hemorrhage Esophageal reflux GERD Hemorrhage of gastrointestinal tract, unspecified 05/23/2001 Internal hemorrhoids without mention of complication 05/23/2001 Unspecified essential hypertension PAST SURGICAL HISTORY Procedure Laterality Date COLONOSCOPY 01/08/2017 COLONOSCOPY FLX DX W/COLLJ SPEC WHEN PFRMD ,05/24 Colonoscopy COLONOSCOPY FLX DX W/COLLJ SPEC WHEN PFRMD 08/23/2006 diverticulosis LAPAROSCOPY SURG CHOLECYSTECTOMY 2001 Cholecystectomy, lap PAST SURGICAL HISTORY OF 01/2007 left knee meniscus repair SALPINGO-OOPHORECTOMY COMPL/PRTL UNI/BI SPX Salpingo-oophorectomy b/l TOTAL ABDOMINAL HYSTERECT W/WO RMVL TUBE OVARY Hysterectomy, SHEN Current Outpatient Medications Medication Sig donepezil (ARICEPT) 10 mg disintegrating tablet Take 1 tablet by mouth once daily. sertraline (ZOLOFT) 50 mg tablet Take 1 tablet by mouth once daily. Ipratropium [place] (ATROVENT) 21 mcg (0.03 %) nasal spray Use 2 Sprays in the nose every 12 hours. pravastatin (PRAVACHOL) 20 mg tablet Take 1 tablet by mouth once daily. levothyroxine (LEVOXYL) 112 mcg tablet Take 1 tablet by mouth once daily. metoprolol succinate ER (TOPROL XL) 50 mg 24 hr tablet Take 1 tablet by mouth once daily. famotidine (PEPCID) 40 mg tablet Take 1 tablet by mouth once daily. memantine (NAMENDA) 5 mg tablet Take 1 tablet by mouth twice daily. Please start by taking 5 mgs once a day and increase to taking 5 mgs 2 times a day Liaigiqwgcrlp-Lbhovpgz-Ngpupl (CENTRUM SILVER) Tab Take 1 tablet by mouth once daily. No current facility-administered medications for this visit. ALLERGIES: Bactrim Ds [Sulfamethoxazole-Trimethoprim], Furadantin [Nitrofurantoin], Macrobid [Nitrofurantoin Monohyd/M-Cryst], Premarin [Conjugated Estrogens], Provera [Medroxyprogesterone], Sulfamethoxazole, and Trimethoprim PERSONAL HISTORY: Social History Tobacco Use Smoking status: Former Types: Cigarettes Quit date: 1998 Years since quittin.6 Smokeless tobacco: Never Vaping Use Vaping Use: Never used Substance Use Topics Alcohol use: Yes Alcohol/week: 1.7 standard drinks of alcohol Comment: occasionally - bottle of wine share once monthly (02/2016) Drug use: No FAMILY HISTORY: FAMILY HISTORY Problem Relation Age of Onset Alzheimer's Disease Father 81 Thyroid Sister colitis Colon Cancer No Family History REVIEW OF SYMPTOMS: The review of systems data was entered by the nurse and reviewed by ks Nursing Notes: Elvie Majano 11/13/2022 1:40 PM Signed REVIEW OF SYSTEMS: General: The patient denies fatigue, denies weight loss, denies weight gain, NOTES feeling hot, and denies feelings of cold. Eyes: The patient denies glaucoma, denies eye injury/surgery, wears glasses or contacts. Ear/Nose/Throat: The patient denies allergies, denies hayfever, denies ear infections, and denies bloody noses. Cardiovascular: The patient denies chest pain, denies heart disease, NOTES high blood pressure,denies cardiac stent, denies prior heart attack, NOTES irregular heart beat, denies high cholesterol, denies poor circulation, denies heart failure, other cardiac issues, denies claudication, denies cold feet, denies peripheral arterial stent. Respiratory: The patient denies tuberculosis, denies pneumonia, denies frequent cough, denies pulmonary embolism, denies shortness of breath, and denies coughing up blood. Gastrointestinal: The patient denies difficulty swallowing, NOTES acid reflux, denies ulcers, denies vomiting, denies jaundice/hepatitis, denies gallbladder problems, denies black or tarry stools, NOTES hemorrhoids, denies bleeding from rectum, denies diverticulitis, denies constipation, denies diarrhea, denies loss of stool control, and denies hernias. Kidney/Bladder: The patient denies kidney stones, denies urine infections, and denies bloody urine. Skin: The patient denies a history of skin cancer, denies bleeding/changing moles, and denies a history of skin rash. Neurologic: The patient denies a history of epilepsy/convulsions, denies headaches, denies head/spinal injuries, and denies stroke/TIA. Psychiatric: The patient denies psychiatric medications, denies depression, and denies voices, denies substance abuse. Endocrine: The patient NOTES thyroid disorders, denies diabetes, and denies hormonal problems. Hematologic: The patient denies a history of bruising, denies bleeding, and denies anemia, denies blood clots. Infections: The patient NOTES a history of measles and mumps, denies rheumatic fever, and denies sexually transmitted diseases. Musculoskeletal: The patient denies back pain/injury, denies back problems, denies sciatica, denies knee/foot trouble, NOTES arthritis, or denies gout. When was patient's last Mammogram screening? 2016 Last Colonoscopy: unknown Elvie Majano MA PHYSICAL EXAMINATION: General: The patient is 82 year old female, well nourished, well hydrated in no acute distress. The patient is oriented to time, place, and person. VITALS: Blood pressure 118/64, pulse 86, temperature 36.2 C (97.2 F), height 167.6 cm (5' 6), weight 81.2 kg (179 lb), SpO2 100 %. HEENT: Normal cephalic, ataumatic, pupils are equally round, sclera are anicteric, mucous membranes are moist, oropharynx is clear. Neck has no masses, asymmetry or lymphadenopathy. Thyroid is unremarkable. Respiratory: Clear to auscultation and percussion. Normal respiratory excursion and pattern. Cardiac: Examination is regular rate and rhythm. Abdominal exam: Soft, nontender, with no palpable masses. No hepatosplenomegaly. No palpable hernias. Rectal exam: exam deferred Extremities: no clubbing, cyanosis or edema. No adenopathy. Other: Left arm laterally shows a 2 to 3 cm subcutaneous soft tissue lesion. It is not appreciably tender to touch to deep palpation it shows no signs of infection and there is no bruising around it LABORATORY VALUES: As Noted RADIOLOGIC STUDIES: As Noted Assessment IMPRESSION: Soft tissue mass Tenderness PLAN: We will excise this in the office. Diagnoses: (M79.89) Soft tissue mass (R52) Tenderness My findings have been communicated to Dr. Lambert via shared medical record. This note will be forwarded to Dr. Vanessa Her MD. Return to Clinic: The patient is instructed to follow-up with me 1 week post operatively. Tejinder Funes III, MD documented in this encounter [facility] 11-13-2022 Nurse Note REVIEW OF SYSTEMS: General: The patient denies fatigue, denies weight loss, denies weight gain, NOTES feeling hot, and denies feelings of cold. Eyes: The patient denies glaucoma, denies eye injury/surgery, wears glasses or contacts. Ear/Nose/Throat: The patient denies allergies, denies hayfever, denies ear infections, and denies bloody noses. Cardiovascular: The patient denies chest pain, denies heart disease, NOTES high blood pressure,denies cardiac stent, denies prior heart attack, NOTES irregular heart beat, denies high cholesterol, denies poor circulation, denies heart failure, other cardiac issues, denies claudication, denies cold feet, denies peripheral arterial stent. Respiratory: The patient denies tuberculosis, denies pneumonia, denies frequent cough, denies pulmonary embolism, denies shortness of breath, and denies coughing up blood. Gastrointestinal: The patient denies difficulty swallowing, NOTES acid reflux, denies ulcers, denies vomiting, denies jaundice/hepatitis, denies gallbladder problems, denies black or tarry stools, NOTES hemorrhoids, denies bleeding from rectum, denies diverticulitis, denies constipation, denies diarrhea, denies loss of stool control, and denies hernias. Kidney/Bladder: The patient denies kidney stones, denies urine infections, and denies bloody urine. Skin: The patient denies a history of skin cancer, denies bleeding/changing moles, and denies a history of skin rash. Neurologic: The patient denies a history of epilepsy/convulsions, denies headaches, denies head/spinal injuries, and denies stroke/TIA. Psychiatric: The patient denies psychiatric medications, denies depression, and denies voices, denies substance abuse. Endocrine: The patient NOTES thyroid disorders, denies diabetes, and denies hormonal problems. Hematologic: The patient denies a history of bruising, denies bleeding, and denies anemia, denies blood clots. Infections: The patient NOTES a history of measles and mumps, denies rheumatic fever, and denies sexually transmitted diseases. Musculoskeletal: The patient denies back pain/injury, denies back problems, denies sciatica, denies knee/foot trouble, NOTES arthritis, or denies gout. When was patient's last Mammogram screening? 2016 Last Colonoscopy: unknown Elvie Majano MA documented in this encounter [facility] 11-05-2022 Miscellaneous Notes Called and scheduled appt to general surgery with pt's on 11/13/22 Patient notified, please assist in scheduling. Please let patient know her US showed a probable lipoma which is a mass made of fatty tissue and not concerning. As she has had pain in this area, I am sending her to general surgery for further evaluation of probable lipoma. Thank you Meagan Lambert APRN.BAHMAN documented in this encounter [facility] 10-18-2022 Note HNO ID: [id number] Author: Dorota Norris RT(R) Service: ? Author Type: Technologist Type: Progress Notes Filed: 10/18/2022 9:13 AM Note Text: Radiology Service Progress Note PATIENT NAME: Gerrtude Flores DATE OF SERVICE: October 18, 2022 TIME: 9:13 AM PATIENT IDENTITY VERIFICATION COMPLETED USING TWO (2) IDENTIFIERS: Name and Date of confirmed by patient verbally. FALL SCREENING: Has the patient had 2 falls in the last year or 1 fall with injury or currently using an Ambulatory Assistive Device (Walker, Cane, Wheelchair, Crutches, etc.)? No PATIENT GENDER DATA: Female. status: : No status: NO. PATIENT RELEVANT IMPLANT DATA REVIEWED: Yes RADIOLOGY DEPARTMENT: Ultrasound PERIPHERAL IV DATA: Not applicable SIGNED BY: Dorota Norris RDMS, TONIO October 18, 2022 9:13 AM [facility] 10-18-2022 History of Presen t illness Narrative Radiology Service Progress Note PATIENT NAME: Gertrude Flores DATE OF SERVICE: October 18, 2022 TIME: 9:13 AM PATIENT IDENTITY VERIFICATION COMPLETED USING TWO (2) IDENTIFIERS: Name and Date of confirmed by patient verbally. FALL SCREENING: Has the patient had 2 falls in the last year or 1 fall with injury or currently using an Ambulatory Assistive Device (Walker, Cane, Wheelchair, Crutches, etc.)? No PATIENT GENDER DATA: Female. status: : No status: NO. PATIENT RELEVANT IMPLANT DATA REVIEWED: Yes RADIOLOGY DEPARTMENT: Ultrasound PERIPHERAL IV DATA: Not applicable SIGNED BY: Dorota Norris RDMS, RVT October 18, 2022 9:13 AM documented in this encounter [facility] 10-09-2022 Miscellaneous Notes Patient has been identified by name and date of : No Patient phones for refill(s): Requested Prescriptions Pending Prescriptions Disp Refills Ipratropium [place] (ATROVENT) 21 mcg (0.03 %) nasal spray 30 mL 2 Sig: Use 2 Sprays in the nose every 12 hours. Date of last office visit in primary care: 07/09/22 Last 2 Encounter Wt Readings: Date: Wt: 07/24/2022 83.5 kg (184 lb) 07/10/2022 84.3 kg (185 lb 12.8 oz) Previous labs/tests for medication: Not applicable Please advise. Thank you. Radha Ferreira LPN documented in this encounter [facility] 10-08-2022 Miscellaneous Notes Called and relied message below to Gertrude. It is easier for her to follow up with her PCP, and will make an appointment with them. Patient has not been seen in the office by Dr. Crocker since 2020. She will need to schedule follow-up for us to continue to fill this unless she would like her PCP to take over this medication. 3-month supply provided. The following approved medication requests have been transmitted electronically. Requested Prescriptions Signed Prescriptions Disp Refills pravastatin (PRAVACHOL) 20 mg tablet 90 tablet 0 Sig: Take 1 tablet by mouth once daily. Authorizing Provider: SHYANNE QUIGLEY APRN.CNP Need appt tonja/ Irish IONA 12/12/20 Irish documented in this encounter [facility] 08-01-2022 Miscellaneous Notes Told patient's path reports. Patient is doing well, he states can't even tell surgery was done there. Patient to follow up as per needed. documented in this encounter [facility] 07-23-2022 Instructions Lacie Madrigal LPN - 07/23/2022 9:20 AM EDT Instructions After SKIN EXCISION-SUTURES You can remove the dressing in two days. If the dressing becomes soaked or had significant drainage, the dressing should be changed. If there is minor bleeding from this skin edge, you should hold pressure on the incision until the bleeding stops. If there is continued bleeding, you should contact our office immediately. You do not need to leave a dressing on the wound after two days. If the wound shows signs of redness, inflammation, or purulent drainage, you should contact our office immediately. You should keep the wound dry for the first two days. After that time, you may wash the wound with gentle soap and water. The wound should not be immersed in a pool, bathtub, or even hot tub. If you have any questions or concerns please feel free to call our office at [phone] and ask to be transferred to General Surgery. Thank you for choosing [facility] - General Surgery. documented in this encounter [facility] 07-23-2022 History of Presen t illness Narrative Here for skin cyst removal of back at bra line. Procedure: excision of skin cyst of posterior mid back (02862) Preoperative diagnosis: skin cyst of mid posterior back causing irritation at bra line due to protrusion Postoperative diagnosis: same DESCRIPTION OF PROCEDURE After informed consent was obtained, patient was brought to the procedure room. Appropriate time out protocol was followed. Patient was placed in the lateral position. The site of the lesion was then cleansed with a sterile surgical skin preparation. Appropriate sterile surgical drapes were placed. The skin and subcutaneous tissues at the site were then infiltrated with local anesthetic. A skin incision was made at the site in an elliptical fashion to entirely incorporate the lesion with the pore opening with a 15 blade scalpel. The incision was carried down to the subcutaneous tissues. Dissection was done to separate the skin lesion from the surrounding subcutaneous tissues. The lesion was excised sharply down to the subcutaneous tissues. The lesion was 1 cm in size. The tissue was then removed and placed in formalin to be forwarded to pathology for analysis. Hemostasis was controlled by pressure. The skin edges were then reapproximated with interrupted 3-0 vicryl in a subcuticular fashion. Skin prep and steristrips were placed to reinforce wound closure Sterile dressing was applied. Patient tolerated procedure well. COMPLICATIONS: none EBL: minimal PLAN: Patient to remove opsite dressing in 5 days. Leave steristrips on, they will fall off on own. May shower, avoid scrubbing in the area. Follow up if any worsening signs/symptoms. Patient acknowledges above. documented in this encounter [facility] 07-23-2022 Nurse Note UNIVERSAL PROTOCOL / SAFETY CHECKLIST Procedure to be Performed: Excision of skin cyst of back Sign In: A Moment of CARE was completed. Personnel directly involved with the procedure wore the appropriate PPE (Personal Protective Equipment). No special equipment needed. Patient/Surrogate Stated/Verified: PATIENT VERIFIED(optional for EMERGENT procedures): Patient name, Date of , Relevant allergies, and The intended procedure Time Out Communication: Intended patient and procedure match the source documents. Consent documented and matches the intended procedure. Relevant labs, photos, and/or imaging studies have been reviewed. Correct side/site marked and visible. Medications required for procedure verified. No fire risk assessment and interventions applicable. No implant(s) inserted. Sign Out: SIGN OUT (optional for EMERGENT procedures): All specimen containers correctly labeled. No instruments, equipment or retained foreign bodies applicable. Post-procedure follow-up management communicated and Plan of Care Visit completed when applicable. Lacie Madrigal LPN documented in this encounter [facility] 07-12-2022 Miscellaneous Notes See recent result telephone encounter. TSH low so dose decreased to 1 tablet daily. Script updated and sent to pharmacy. Thank you Meagan Lambert APRN.DISHTANK OPERATOR This is because of her dosage of 1.5 tablets of 112 on 1 day of the week. This would translate to 2 additional tablets in month month and 6 additional in 3 months. Regards, Vanessa Her MD Rec' denial for levothyroxine 96. Insurance will cover 30 or 90 tablets. Pt was seen 07/09/22 and labs completed will review this before completing appeal. documented in this encounter [facility] 07-10-2022 Nurse Note REVIEW OF SYSTEMS: General: The patient denies fatigue, denies weight loss, denies weight gain, denies feeling hot, and denies feelings of cold. Eyes: The patient denies glaucoma, denies eye injury/surgery, wears glasses or contacts. Ear/Nose/Throat: The patient NOTES allergies, NOTES hayfever, denies ear infections, and denies bloody noses. Cardiovascular: The patient denies chest pain, denies heart disease, NOTES high blood pressure,denies cardiac stent, denies prior heart attack, NOTES irregular heart beat, denies high cholesterol, denies poor circulation, denies heart failure, other cardiac issues, denies claudication, denies cold feet, denies peripheral arterial stent. Respiratory: The patient denies tuberculosis, denies pneumonia, denies frequent cough, denies pulmonary embolism, denies shortness of breath, and denies coughing up blood. Gastrointestinal: The patient denies difficulty swallowing, NOTES acid reflux, denies ulcers, denies vomiting, denies jaundice/hepatitis, denies gallbladder problems, denies black or tarry stools, denies hemorrhoids, denies bleeding from rectum, denies diverticulitis, denies constipation, denies diarrhea, denies loss of stool control, and denies hernias. Kidney/Bladder: The patient denies kidney stones, denies urine infections, and denies bloody urine. Skin: The patient denies a history of skin cancer, denies bleeding/changing moles, and denies a history of skin rash. Neurologic: The patient denies a history of epilepsy/convulsions, denies headaches, denies head/spinal injuries, and denies stroke/TIA. Psychiatric: The patient denies psychiatric medications, denies depression, and denies voices, denies substance abuse. Endocrine: The patient NOTES thyroid disorders, denies diabetes, and denies hormonal problems. Hematologic: The patient denies a history of bruising, denies bleeding, and denies anemia, denies blood clots. Infections: The patient denies a history of measles and mumps, denies rheumatic fever, and denies sexually transmitted diseases. Musculoskeletal: The patient denies back pain/injury, denies back problems, denies sciatica, NOTES knee/foot trouble, denies arthritis, or denies gout. When was patient's last Mammogram screening? N/A Last Colonoscopy: 2017 Lacie Madrigal LPN documented in this encounter [facility] 04-18-2023 History of Presen t illness Narrative Gertrude Flores 1940 REFERRING PHYSICIAN: Meagan Lambert APRN.CNP CHIEF COMPLAINT: Consult (Cyst on back) HPI: The patient is a 82 year old female presents with epidermal inclusion cyst of back. She wants removal of this < 1 cm of back She states that it is irritating because it protrudes on her bra strap She has noted it for about a year. 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 colon polyps Diverticulitis of colon with hemorrhage Esophageal reflux GERD Hemorrhage of gastrointestinal tract, unspecified 05/23/2001 Internal hemorrhoids without mention of complication 05/23/2001 Unspecified essential hypertension PAST SURGICAL HISTORY Procedure Laterality Date COLONOSCOPY 01/08/2017 COLONOSCOPY FLX DX W/COLLJ SPEC WHEN PFRMD ,05/24 Colonoscopy COLONOSCOPY FLX DX W/COLLJ SPEC WHEN PFRMD 08/23/2006 diverticulosis LAPAROSCOPY SURG CHOLECYSTECTOMY 2001 Cholecystectomy, lap PAST SURGICAL HISTORY OF 01/2007 left knee meniscus repair SALPINGO-OOPHORECTOMY COMPL/PRTL UNI/BI SPX Salpingo-oophorectomy b/l TOTAL ABDOMINAL HYSTERECT W/WO RMVL TUBE OVARY Hysterectomy, SHEN Current Outpatient Medications Medication Sig levothyroxine (LEVOXYL) 112 mcg tablet Take 1 tablet by mouth once daily. Except take 1.5 tabs on Sundays. Take on empty stomach. For thyroid. metoprolol succinate ER (TOPROL XL) 50 mg 24 hr tablet Take 1 tablet by mouth once daily. sertraline (ZOLOFT) 25 mg tablet Take 1 tablet by mouth once daily. famotidine (PEPCID) 40 mg tablet Take 1 tablet by mouth once daily. donepezil (ARICEPT) 10 mg disintegrating tablet Take 1 tablet by mouth once daily. memantine (NAMENDA) 5 mg tablet Take 1 tablet by mouth twice daily. Please start by taking 5 mgs once a day and increase to taking 5 mgs 2 times a day Ipratropium [place] (ATROVENT) 21 mcg (0.03 %) nasal spray Use 2 Sprays in the nose every 12 hours. pravastatin (PRAVACHOL) 20 mg tablet Take 1 tablet by mouth once daily. Hyslcwtdilwsf-Mfkyfcnj-Schusw (CENTRUM SILVER) Tab Take 1 tablet by mouth once daily. ALLERGIES: Bactrim Ds [Sulfamethoxazole-Trimethoprim], Furadantin [Nitrofurantoin], Macrobid [Nitrofurantoin Monohyd/M-Cryst], Premarin [Conjugated Estrogens], Provera [Medroxyprogesterone], Sulfamethoxazole, and Trimethoprim PERSONAL HISTORY: Social History Tobacco Use Smoking status: Former Types: Cigarettes Quit date: 1998 Years since quittin.3 Smokeless tobacco: Never Vaping Use Vaping Use: Never used Substance Use Topics Alcohol use: Yes Alcohol/week: 1.7 standard drinks Comment: occasionally - bottle of wine share once monthly (02/2016) Drug use: No FAMILY HISTORY Problem Relation Age of Onset Alzheimer's Disease Father 81 Thyroid Sister colitis Colon Cancer No Family History The review of systems data was entered by the nurse and reviewed by ks Nursing Notes: Lacie Madrigal LPN 07/10/2022 9:09 AM Signed REVIEW OF SYSTEMS: General: The patient denies fatigue, denies weight loss, denies weight gain, denies feeling hot, and denies feelings of cold. Eyes: The patient denies glaucoma, denies eye injury/surgery, wears glasses or contacts. Ear/Nose/Throat: The patient NOTES allergies, NOTES hayfever, denies ear infections, and denies bloody noses. Cardiovascular: The patient denies chest pain, denies heart disease, NOTES high blood pressure,denies cardiac stent, denies prior heart attack, NOTES irregular heart beat, denies high cholesterol, denies poor circulation, denies heart failure, other cardiac issues, denies claudication, denies cold feet, denies peripheral arterial stent. Respiratory: The patient denies tuberculosis, denies pneumonia, denies frequent cough, denies pulmonary embolism, denies shortness of breath, and denies coughing up blood. Gastrointestinal: The patient denies difficulty swallowing, NOTES acid reflux, denies ulcers, denies vomiting, denies jaundice/hepatitis, denies gallbladder problems, denies black or tarry stools, denies hemorrhoids, denies bleeding from rectum, denies diverticulitis, denies constipation, denies diarrhea, denies loss of stool control, and denies hernias. Kidney/Bladder: The patient denies kidney stones, denies urine infections, and denies bloody urine. Skin: The patient denies a history of skin cancer, denies bleeding/changing moles, and denies a history of skin rash. Neurologic: The patient denies a history of epilepsy/convulsions, denies headaches, denies head/spinal injuries, and denies stroke/TIA. Psychiatric: The patient denies psychiatric medications, denies depression, and denies voices, denies substance abuse. Endocrine: The patient NOTES thyroid disorders, denies diabetes, and denies hormonal problems. Hematologic: The patient denies a history of bruising, denies bleeding, and denies anemia, denies blood clots. Infections: The patient denies a history of measles and mumps, denies rheumatic fever, and denies sexually transmitted diseases. Musculoskeletal: The patient denies back pain/injury, denies back problems, denies sciatica, NOTES knee/foot trouble, denies arthritis, or denies gout. When was patient's last Mammogram screening? N/A Last Colonoscopy: 2017 Lacie Madrigal LPN PHYSICAL EXAMINATION: General: The patient is 82 year old female, well nourished, well hydrated in no acute distress. The patient is oriented to time, place, and person. VITALS: Blood pressure 118/82, pulse 117, temperature 36 C (96.8 F), height 167.6 cm (5' 6), weight 84.3 kg (185 lb 12.8 oz), SpO2 98 %. Body mass index is 29.99 kg/m . Head: Normal cephalic, atraumatic Eyes: pupils are equally round, sclera are clear/anicteric, wearing glasses Neck is supple with no tracheal deviation Respiratory: Normal respiratory excursion and pattern. Abdominal exam: benign Skin - upper back - epidermal inclusion cyst with central blackhead, < 1cm Extremities: no clubbing, cyanosis or edema. Neuro: non focal Psych: normal mood Assessment IMPRESSION: epidermal inclusion cyst that is irritating PLAN: I have discussed the above with the patient and her who is present with her. I have offered excision of this lesion.. I have explained the procedure to the patient. To be done with local anesthesia in the office I have counseled the patient as to the risks of the procedure, including but not limited to: infection, bleeding, injury to any blood vessels/nerves, scar tissue, wound infections, complications of anesthesia, etc. - the patient understands. The patient wishes to proceed. I have answered all questions to the patient s satisfaction and the patient has no further questions. I have confirmed and edited as necessary, the PFSH and ROS obtained by others. Consultation requested by Meagan Lambert for an opinion regarding patient's skin cyst. My final recommendations will be communicated back to the requesting physician by way of shared Medical record or letter to requesting physician via US mail. . Diagnoses: (L72.9) Skin cyst Return to Clinic: The patient will be scheduled for office procedure in the near future. She has been counseled to avoid aspirin and fish oil. Medical Decision Making: Problems: Low: Stable chronic illness Risk: Low: Low risk from testing/treatment Medical Decision Making Level: 3 - Low Oneyda Ramos MD documented in this encounter [facility] 03-27-2022 Miscellaneous Notes IONA: 10/05/2021 Last refill: 03/06/2021 QTY: 180 Refills: 3 Patient's request for medication is as follows: Requested Prescriptions Pending Prescriptions Disp Refills memantine (NAMENDA) 5 mg tablet 180 tablet 3 Sig: Take 1 tablet by mouth twice daily. Please start by taking 5 mgs once a day and increase to taking 5 mgs 2 times a day Please approve the above prescription(s) to electronically send to pharmacy. Dc Murrieta Ma documented in this encounter [facility] 12-27-2021 Miscellaneous Notes IONA: 12/12/20 [place] NOV:None scheduled documented in this encounter [facility] 12-27-2021 Miscellaneous Notes Patient has been identified by name and date of : Yes Patient phones for refill(s): Requested Prescriptions Pending Prescriptions Disp Refills Ipratropium [place] (ATROVENT) 21 mcg (0.03 %) nasal spray 30 mL 2 Sig: Use 2 Sprays in the nose every 12 hours. Date of last office visit in primary care: 10/05/21 Last 2 Encounter Wt Readings: Date: Wt: 11/16/2021 88 kg (194 lb) 10/05/2021 89.8 kg (198 lb) Previous labs/tests for medication: Not applicable Please advise. Thank you. Radha Ferreira LPN documented in this encounter [facility] 11-21-2021 History of Presen t illness Narrative Radiology Service Progress Note PATIENT NAME: Gertrude Flores DATE OF SERVICE: November 21, 2021 TIME: 10:30 AM PATIENT IDENTITY VERIFICATION COMPLETED USING TWO (2) IDENTIFIERS: Name and Date of confirmed by patient verbally. FALL SCREENING: Has the patient had 2 falls in the last year or 1 fall with injury or currently using an Ambulatory Assistive Device (Walker, Cane, Wheelchair, Crutches, etc.)? No PATIENT GENDER DATA: Female. status: : No status: NO. PATIENT RELEVANT IMPLANT DATA REVIEWED: Not Applicable RADIOLOGY DEPARTMENT: Ultrasound PERIPHERAL IV DATA: Not applicable SIGNED BY: RT Lily(R) November 21, 2021 10:30 AM documented in this encounter [facility] 11-16-2021 History of Presen t illness Narrative CHIEF COMPLAINT: Patient presents with: Nausea & Vomiting This consult was requested by Vanessa Her MD for an opinion regarding nausea, vomiting. My final recommendations will be communicated to the requesting health care provider by way of the shared medical record for internal providers or letter via the [employer] for external providers. HPI: Gertrude Flores is a 81 year old female who presents for Nausea & Vomiting. PMHx of hx colon polyps, GERD, HTN, CKD stage three, dementia tells me that back in May, patient woke up one morning and didn't feel well at all. She proceeded to vomit and vomit. [place] very weak, ambulance was called and went to the hospital. Work up was negative. Three weeks later, her symptoms started again. Started vomiting again and felt weak. Symptoms improved after a few hours. It has happened a handful of times since then but nothing in the last two months. Patient denies abdominal pain, GERD, appetite changes. notes a consistent slow weight loss. Does admit to decreasing meat in their diet. Patient denies early satiety. Bowel movements are regular. No bloody or black stools. No smoking. Social alcohol use. No pertinent GI family hx. Component Latest Ref Rng & Units 10/03/2021 Hemoglobin A1C 4.3 - 5.6 % 5.4 Estimated Average Glucose mg/dL 108 Component Latest Ref Rng & Units 04/07/2021 WBC 3.70 - 11.00 k/uL 5.62 RBC 3.90 - 5.20 m/uL 4.84 Hemoglobin 11.5 - 15.5 g/dL 14.0 Hematocrit 36.0 - 46.0 % 44.1 MCV 80.0 - 100.0 fL 91.1 MCH 26.0 - 34.0 pG 28.9 MCHC 30.5 - 36.0 g/dL 31.7 RDW-CV 11.5 - 15.0 % 13.2 Platelet Count 150 - 400 k/uL 290 MPV 9.0 - 12.7 fL 11.2 Neut% % 61.4 Abs Neut (ANC) 1.45 - 7.50 k/uL 3.44 Lymph% % 24.9 Abs Lymph 1.00 - 4.00 k/uL 1.40 Bucks% % 8.9 Abs Bucks <0.87 k/uL 0.50 Eosin% % 3.6 Abs Eosin <0.46 k/uL 0.20 Baso% % 1.2 Abs Baso <0.11 k/uL 0.07 Nucleated Reds 0 /100 WBC 0.0 Absolute nRBC <0.01 k/uL <0.01 Diff Type Auto Diff Protein, Total 6.3 - 8.0 g/dL 7.3 Albumin 3.9 - 4.9 g/dL 4.3 Calcium 8.5 - 10.2 mg/dL 9.9 Bilirubin, Total 0.2 - 1.3 mg/dL 0.5 Alkaline Phosphatase 34 - 123 U/L 79 AST 13 - 35 U/L 17 Glucose 74 - 99 mg/dL 96 BUN 7 - 21 mg/dL 13 Creatinine 0.58 - 0.96 mg/dL 1.06 (H) Sodium 136 - 144 mmol/L 144 Potassium 3.7 - 5.1 mmol/L 4.1 Chloride 97 - 105 mmol/L 107 (H) CO2 22 - 30 mmol/L 25 Anion Gap 9 - 18 mmol/L 12 ALT 7 - 38 U/L 7 eGFR- >60 eGFR-All Other Races . 50 Cholesterol, Total <200 mg/dL 174 Triglyceride <150 mg/dL 88 HDL Cholesterol >39 mg/dL 51 LDL Cholesterol <100 mg/dL 105 (H) Non HDL Cholesterol <130 mg/dL 123 Fasting Time hrs 12 VLDL Cholesterol <30 mg/dL 18 TC:HDL Ratio <5.10 3.41 LDL:HDL Ratio <2.54 2.06 TSH 0.270 - 4.200 uU/mL 1.080 Vitamin B12 232 - 1,245 pg/mL 733 Record Review: [facility] / Outside records reviewed. 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 colon polyps Diverticulitis of colon with hemorrhage Esophageal reflux GERD Hemorrhage of gastrointestinal tract, unspecified 05/23/2001 Internal hemorrhoids without mention of complication 05/23/2001 Unspecified essential hypertension PAST SURGICAL HISTORY Procedure Laterality Date COLONOSCOPY 01/08/2017 COLONOSCOPY FLX DX W/COLLJ SPEC WHEN PFRMD ,05/24 Colonoscopy COLONOSCOPY FLX DX W/COLLJ SPEC WHEN PFRMD 08/23/2006 diverticulosis LAPAROSCOPY SURG CHOLECYSTECTOMY 2001 Cholecystectomy, lap PAST SURGICAL HISTORY OF 01/2007 left knee meniscus repair SALPINGO-OOPHORECTOMY COMPL/PRTL UNI/BI SPX Salpingo-oophorectomy b/l TOTAL ABDOMINAL HYSTERECT W/WO RMVL TUBE OVARY Hysterectomy, SHEN Allergies: ALLERGIES Allergen Reactions Bactrim Ds [Sulfame* blisters in mouth, edema Furadantin [Nitrofu* Hives Macrobid [Nitrofura* Diarrhea Premarin [Conjugate* Provera [Medroxypro* Sulfamethoxazole Swelling Trimethoprim Swelling Medications: donepezil (ARICEPT) 5 mg disintegrating tablet Take 5 mg by mouth daily at bedtime. metoprolol succinate ER (TOPROL XL) 50 mg 24 hr tablet Take 1 tablet by mouth once daily. famotidine (PEPCID) 40 mg tablet Take 1 tablet by mouth once daily. levothyroxine (LEVOXYL) 112 mcg tablet Take 1 tablet by mouth once daily. Except take 1.5 tabs on Sundays. Take on empty stomach. For thyroid. Ipratropium [place] (ATROVENT) 21 mcg (0.03 %) nasal spray Use 2 Sprays in the nose every 12 hours. memantine (NAMENDA) 5 mg tablet Take 1 tablet by mouth twice daily. Please start by taking 5 mgs once a day and increase to taking 5 mgs 2 times a day pravastatin (PRAVACHOL) 20 mg tablet Take 1 tablet by mouth once daily. Xnzyzslhgizzs-Vlwsvsoo-Tautwu (CENTRUM SILVER) Tab Take 1 tablet by mouth once daily. donepezil (ARICEPT) 10 mg disintegrating tablet Take 1 tablet by mouth once daily. (Patient not taking: Reported on 11/16/2021) sertraline (ZOLOFT) 25 mg tablet Take 1 tablet by mouth once daily. FAMILY HISTORY Problem Relation Age of Onset Alzheimer's Disease Father 81 Thyroid Sister colitis Colon Cancer No Family History Employer And Job Title: No employer specified (retired); No employer specified (No job title specified); No employer specified (No job title specified) Years Of Education Completed: 16 years Marital Status: with no children Social History Tobacco Use Smoking status: Former Types: Cigarettes Quit date: 1998 Years since quittin.6 Smokeless tobacco: Never Vaping Use Vaping Use: Never used Substance Use Topics Alcohol use: Yes Alcohol/week: 1.7 standard drinks Comment: occasionally - bottle of wine share once monthly (02/2016) Drug use: No Review of Systems: Review of Systems Gastrointestinal: Positive for nausea and vomiting. All other systems reviewed and are negative. Are you taking any blood thinners? No Physical Examination: BP 134/80 Pulse 72 Ht 5' 4 (1.63m) Wt 194 lb (88.0kg) BMI 33.28 kg/(m^2). Physical Exam Constitutional: Appearance: Normal appearance. She is obese. HENT: Head: Normocephalic and atraumatic. Nose: Nose normal. Eyes: General: No scleral icterus. Extraocular Movements: Extraocular movements intact. Conjunctiva/sclera: Conjunctivae normal. Pupils: Pupils are equal, round, and reactive to light. Cardiovascular: Rate and Rhythm: Normal rate and regular rhythm. Pulses: Normal pulses. Heart sounds: Normal heart sounds. Pulmonary: Effort: Pulmonary effort is normal. Breath sounds: Normal breath sounds. Abdominal: General: Abdomen is flat. Bowel sounds are normal. Palpations: Abdomen is soft. Tenderness: There is no abdominal tenderness. Musculoskeletal: General: Normal range of motion. Cervical back: Normal range of motion and neck supple. Skin: General: Skin is warm and dry. Coloration: Skin is not jaundiced. Neurological: General: No focal deficit present. Mental Status: She is alert and oriented to person, place, and time. Psychiatric: Mood and Affect: Mood normal. Behavior: Behavior normal. Thought Content: Thought content normal. Judgment: Judgment normal. Assessment/Plan (R11.12) Projectile vomiting with nausea (primary encounter diagnosis) 1. Projectile vomiting with nausea -- Patient has woke up several times in the last five months with projectile vomiting liquid. Nothing in the last two months. -- Recommend switching Pepcid 40 mg to bedtime. Avoiding laying down after eating for 2-3 hours. -- Abd ultrasound for further evaluation - US ABD RT UPPER QUADRANT; Future Follow up in office PRN. Recommended to please call office/go to ER if fever, chills, chest pain, SOB, diarrhea, nausea, emesis, worsening abdominal pain, dehydration occurs I spent 25 minutes in the visit, with more than 50% of the total ifpa-hr-xrfw time of the visit in counseling / coordination of care. I have confirmed and edited as necessary, the PFSH and ROS obtained by others. Faith William PA-C November 16, 2021 11:00 AM documented in this encounter [facility] 10-24-2021 History of Presen t illness Narrative Radiology Service Progress Note DATE OF SERVICE: October 24, 2021 TIME: 10:57 AM PATIENT IDENTITY VERIFICATION COMPLETED USING TWO (2) STANDARD IDENTIFIERS: Name and Date of confirmed by patient verbally. FALL SCREENING: Has the patient had 2 falls in the last year or 1 fall with injury or currently using an Ambulatory Assistive Device (Walker, Cane, Wheelchair, Crutches, etc.)? No PATIENT GENDER DATA: Female. status: : No status: NO. PATIENT RELEVANT IMPLANT DATA REVIEWED: Yes ALLERGIES: Reviewed and unchanged CONTRAST ALLERGY: NO. EXAM: MRI - CONTRAST TYPE: GROUP II PERIPHERAL IV DATA: Ambulatory: A peripheral IV was started in the Right antecubital site with a Angio cath: 22 gauge. RADIOLOGY DEPARTMENT: MR; Exam(s) Completed: Head: Routine Brain SIGNATURE: RT Madeline(R) PATIENT NAME: Gertrude Flores DATE: October 24, 2021 TIME: 10:57 AM documented in this encounter [facility] 10-05-2021 History of Presen t illness Narrative Reason for Visit Patient presents with: F/U 6 months Gertrude Flores is a 81 year old female who presents here today for Above Complaints. Health Maintenance BP CONTROLLED (<130/80) DTAP,TDAP,TD(2 - Td or Tdap) ADVANCE DIRECTIVE DISCUSSION HPI HPL: Reviewed test results with patient , takes medications regularly , does not report side effects. Conscious to avoid red meats, full fat dairy and its by products. Exercising 3 to 5 times a week. is here with patient, has a small book of issues he noted. June 11, there was an instance where she said she was sick, threw up for 5 mins, she had not had breakfast or anything.she felt twitchy, could not stand up, called squad, too her in, there were in the hospital for 3 hours and nothing was found, since that episode she had 4 of those episodes. In the ER they did not do any imaging. Last one was 2 weeks ago, all episodes happen in the morning. She also has headaches along with it, the ache is all over. No flashes of light, she gets dizzy sometimes with the headache. Patient notes it is not something they have to watch regularly. Denies focal neurological deficits No problem-specific Assessment & Plan notes found for this encounter. 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 colon polyps Diverticulitis of colon with hemorrhage Esophageal reflux GERD Hemorrhage of gastrointestinal tract, unspecified 05/23/2001 Internal hemorrhoids without mention of complication 05/23/2001 Unspecified essential hypertension PAST SURGICAL HISTORY Procedure Laterality Date COLONOSCOPY 01/08/2017 COLONOSCOPY FLX DX W/COLLJ SPEC WHEN PFRMD ,05/24 Colonoscopy COLONOSCOPY FLX DX W/COLLJ SPEC WHEN PFRMD 08/23/2006 diverticulosis LAPAROSCOPY SURG CHOLECYSTECTOMY 2001 Cholecystectomy, lap PAST SURGICAL HISTORY OF 01/2007 left knee meniscus repair SALPINGO-OOPHORECTOMY COMPL/PRTL UNI/BI SPX Salpingo-oophorectomy b/l TOTAL ABDOMINAL HYSTERECT W/WO RMVL TUBE OVARY Hysterectomy, SHEN FAMILY HISTORY Problem Relation Age of Onset Alzheimer's Disease Father 81 Thyroid Sister colitis Social History Tobacco Use Smoking status: Former Smoker Quit date: 1998 Years since quittin.5 Smokeless tobacco: Never Used Vaping Use Vaping Use: Never used Substance Use Topics Alcohol use: Yes Alcohol/week: 1.7 standard drinks Comment: occasionally - bottle of wine share once monthly (02/2016) Drug use: No Past medical history, appointments, medications, allergies reviewed. Pertinent Lab/Diagnostic Studies are reviewed and discussed today Current Outpatient Medications: donepezil (ARICEPT) 10 mg disintegrating tablet famotidine (PEPCID) 40 mg tablet levothyroxine (LEVOXYL) 112 mcg tablet Ipratropium [place] (ATROVENT) 21 mcg (0.03 %) nasal spray memantine (NAMENDA) 5 mg tablet pravastatin (PRAVACHOL) 20 mg tablet metoprolol succinate ER (TOPROL XL) 50 mg 24 hr tablet Somqdpfwvntjl-Yhqdeocd-Khxuqe (CENTRUM SILVER) Tab sertraline (ZOLOFT) 25 mg tablet Review of Systems CONSTITUTIONAL: No fevers, chills night sweats, unintended weight loss CARDIOVASCULAR: No chest pain, dyspnea, palpitations, orthopnea, PND, ankle edema. PULM: No dyspnea, unexplained cough. GI: No dysphagia/odynophagia, problematic reflux, constipation, diarrhea, changes in stool habits, hematochezia, melena. : No new urinary complaints, including dysuria, gross hematuria or pyuria. NEURO: No new balance problems, peripheral weakness/paresthesias or numbness of concern. Physical Exam BP 130/80 Pulse 66 Temp 36.6 C (97.9 F) Resp 16 Wt 89.8 kg (198 lb) SpO2 98% BMI 33.99 kg/m General appearance: Well appearing, alert, in no acute distress, well nourished. Skin: Skin color, texture, turgor normal, no suspicious rashes or lesions Head: Normocephalic, no masses, lesions, tenderness or abnormalities Eyes: Anicteric sclera. Pupils are equally round and reactive to light. Extraocular movements are intact. Lungs: Lungs clear to auscultation. No wheezing, rhonchi, rales Heart: RRR without murmur, gallop, or rubs. Neuro: Awake, alert and oriented x 3, Cranial nerves II-XII grossly intact, Reflexes symmetrical, Normal gait and No involuntary motions. Gait: is slow but stable ASSESSMENT/PLAN: 1. Projectile vomiting with nausea - ICD9: 787.01, ICD10: R11.12 (primary diagnosis) - CONSULT TO GASTROENTEROLOGY 2. New onset of headaches - ICD9: 784.0, ICD10: R51.9 - CONSULT TO GASTROENTEROLOGY 3. Essential hypertension - ICD9: 401.9, ICD10: I10 - good control - Recommended regular aerobic exercise. - Recommend home blood pressure monitoring, to bring results in on next visit - Goal of BP <130/80 4. Mixed hyperlipidemia - ICD9: 272.2, ICD10: E78.2 - good control - Continue current medication. 5. Multiple and bilateral precerebral artery syndromes - ICD9: 433.30, ICD10: G45.2 - MRI BRAIN WO/W IVCON Vanessa Her MD documented in this encounter [facility] 09-26-2021 Miscellaneous Notes The following approved medication requests have been transmitted electronically. Signed Prescriptions Disp Refills donepezil (ARICEPT) 10 mg disintegrating tablet 90 tablet 1 Sig: Take 1 tablet by mouth once daily. BLANCA: No Authorizing Provider: JOAQUIN PALACIOS Ordering User: GREGORY HERNANDEZ PA-C documented in this encounter [facility] 07-11-2021 Instructions Joaquin Palacios APRN.DISHTANK OPERATOR - 07/11/2021 2:40 PM EDT Thank you for trusting the [facility] to be a part of your care. Our team had the pleasure of seeing you today for an evaluation of your memory, mood, and overall functioning. These are the next steps after seeing me today: Plan: 1. Start Sertraline 25 mg per day. This has been sent to your pharmacy. 2. Call [phone] to schedule Speech Therapy 3. Keep track of any questions you have that you would like to discuss next time. You next visit should be scheduled with me in 2 months. You can schedule this before you leave today or by calling [phone]. If you need to reach me for any reason prior to your next visit, please contact me through [employer] or call [phone]. Ways to keep your brain healthy: Follow up regularly with your primary care and other providers to ensure your vascular risk factors (blood pressure, blood sugar, sleep apnea, and cholesterol levels, etc.) are well controlled. Eat a healthy diet, foods that are good for your heart are also good for your brain. It is also important to drink plenty of water to stay hydrated. Exercise - as little as 20 minutes of exercise per day (150 minutes per week) - has been shown to have a positive effect on memory and cognitive function. Maintain an active social life. Get 7-8 hours of sleep per night. If you nap during the day, try to keep napping to a regular schedule. Maintain a predictable and regular daily routine. Try learning new hobbies, games, or skills. Keep your brain active with reading, puzzles, and games. Please refer to healthybrains.org website. It provides evidence based education on diet, exercise and activities that have benefit for memory. Other sources of information and support: When there is a diagnosis of memory problems, no matter the type, we encourage families to educate themselves, learn communication tips, and learn ways to adjust expectations over time. There are many resources available online. Three excellent resources are: The Alzheimer's Association (web site: alz.org/b[place]) available 24 hours a day, 7 days per week. Contact: Local: ; Toll free: 296.110.2521 Family Caregiver [place] (web site: Caregiver.org) [employer] Joseph-- a secure online solution for quality information, support, and resources for family caregivers. Contact: Toll-free number: 162.152.3920 Alzheimers.gov - Find Alzheimer disease and related dementias information, resources, research and more. CAREGIVER RELIEF PROGRAM The [facility] Alzheimer's Association has a program aimed at providing support to family caregivers. If you are providing daily care to someone with any form of dementia/memory problems, you may be eligible to receive non-medical in home care services at not cost and benefit from ongoing regularly schedule breaks to focus on your own physical, emotional, and social needs. In order to discuss eligibility requirements, please call the Alziemr's Association at [phone] or e mail: . documented in this encounter [facility] 07-11-2021 History of Presen t illness Narrative Gertrude Flores 1940 July 11, 2021 DX: Mixed alzheimer's and vascular dementia (hcc) (primary encounter diagnosis) Memory changes FIRST VISIT DATE: Date: 06/06/2021 Provider: Dr. Katelyn REARDON [facility]: Date: Provider: ALEXYS MOCA Date: 06/06/202108/21 LV FUNCTION: Date: 06/06/2021 Independent with ADLs, requires assisstance with IADLs finances and meds and no longer drives. CURRENT TREATMENT: Aricept 10 mg every day Namenda 5 mg BID (CKD) Patient Accompanied by: IDENTIFYING INFORMATION Gertrude Flores is a 81 year old, White, female who presents to [facility] for a report visit. Gertrude Flores is being followed for work up for memory loss. She is here today for a report visit following her MRI. Gertrude Flores has a past medical history significant for previous dx of dementia, B12 deficiency, diverticulitis, HTN, CKD, GERD, GIB in 2001 and hypothyroidism. SUBJECTIVE: Patient's last visit with [facility] was 06/06/[address] Zepeda for initial [facility] assessment. Reported around 6 years of changes that have gradually progressed. At that time: Memory problems Language difficulty - speech therapy?? Mood described as upset Today: MRI images and report reviewed. SLEEP MOOD - anxious, gets upset easily, irritable EXERCISE MANAGING VASCULAR RISK FACTORS SPEECH - has not gone yet Functional Status: Activities of Daily Living (ADL) Independent Needs Assistance Dependent/cannot do Bathing x Dressing x Grooming x Transferring x Eating x Toileting x Continence x Instrumental Activities of Daily Living (IADL) Independent Needs Assistance Dependent/cannot do Telephone x Shopping x Food preparation x Housekeeping x Laundry x Driving or transportation X has not driven in a year or more Bills/finances x Medications x With overall regard to patient functioning, patient is Independent with ADLs and Dependant with most IADLs. Safety: Is the patient driving? NO . She says she is but assures me she does not drive. informed privately that she should not drive. Is the patient taking medications as prescribed? YES - oversees Does the patient live alone? NO, Current living situation with family Are there concerns about safety in the home? NO Has the patient gotten lost in familiar places or wandered? NO Has the patient experienced unsteadiness or sustained falls? NO Emergency: unrealistic plan Past medical history, social history, allergies, and full medication list reviewed by Joaquin Palacios APRN.DISHTANK OPERATOR DIAGNOSTIC RESULTS: MOST RECENT MRI: Date: 07/11/2021 IMPRESSION: * No evidence of an acute intracranial process or intracranial mass. * Moderate to severe generalized volume loss. * Hippocampal volumes at the 1st percentile when compared to age matched normal controls by quantitative analysis. * Mild white matter disease which is nonspecific but likely reflective of chronic microvascular ischemia. * Less than 5 parenchymal microhemorrhages by MRI. MRI brain without contrast 02/02/16: Age-expected sulci, gyri, ventricles, CSF spaces, brain and temple white with mild senescent volume loss, microvascular ischemia and ventricular dilation. No specific pattern of volume loss to suggest dementia syndromes. No subdural hematomas. No hemorrhage, acute infarct, mass effect, collections or acute pathology. Normal bones, sinuses, mastoids & skull base. Patent flow voids. NEUROPSYCH TESTING: Date: NA OTHER TESTING: NA BIOMARKER PROFILE: Date: NA LABS: Lab Results Component Value Date TSH 1.080 04/07/2021 B12 733 04/07/2021 VITD25 59.6 06/28/2020 MOCA: MoCA 06/06/2021 MOCA TOTAL SCORE 5 out of 30 Visuospatial/ Executive 1 Naming 1 Attention 2 Language 1 Abstraction 0 Delayed Recall 0 Orientation 0 Education Level 0 OBJECTIVE Physical Exam: Vital Signs: BP 114/63 (BP Site: Left Arm, BP Position: Sitting, BP Cuff Size: Regular Adult) Pulse 78 Wt 92.2 kg (203 lb 3.2 oz) BMI 34.88 kg/m [place] Cognitive Assessment (MoCA)- not assessed today ------- ASSESSMENT & PLAN: Impression: Gertrude Flores is a pleasant 81 year old female who presents today with her for a report visit following her MRI. MRI done today demonstrates atrophy with whole brain volumes in the 10% and hippocampal volume of 1%. MRI also shows mild white matter changes reflective of chronic microvascular ischemia. Nature of diagnosis discussed with patient and caregiver as well as its likely progression. MRI results and images reviewed with patient and her . Prognosis explained that while there are several things she can do, memory and cognitive problems will likely worsen and family needs to plan for that in light of the fact that her has several health issues as well. Functionally, patient remains independent of ADLs and requires assistance with or cannot perform her IADLs. oversees her medications and the household finances. She does not drive although she believes she does. instructed that she is not to drive. Patient is anxious at times and states that she gets more easily irritated and frustrated than in the past. Denies feeling depressed but does admit to getting easily upset and worked up. Problem List and Plan: 1. Counseled on physically, socially and cognitively healthy lifestyle. General brain health measures discussed including anxiety and depression, sleep, exercise, diet, and controlling vascular risk factors. Patient and caregiver receptive to all of these. 2. Continue Aricept and Namenda. She should maintain 5 mg Namenda dose due to her renal function. 3. Start sertraline (Zoloft) 25 mg every day, indication and side effects reviewed with patient and caregiver. 4. Consider referral to after next visit. Family will need to engage in future care planning. -Follow up in 2 months. I spent a total of 45 minutes on the date of service which included preparing to see the patient, [id number] patient care, performing a medically appropriate examination, completing clinical documentation, and on counseling/ educating the patient and the family. Dr. Zepeda was present for a portion of this visit and is in agreement with the plan stated above. He reviewed the MRI images. Joaquin Palacios MSN, BOWLING BALL MOLDER, PROGRAM DIRECTOR SUBSTANCE ABUSE-C Family Nurse Practitioner [facility] CC: 1. Vanessa Her MD, (fax) [phone] documented in this encounter [facility] 07-11-2021 Nurse Note Gertrude Flores is a 81 year old year old woman accompanied by: spouse. Do you have any changes or new concerns you would like to address at the visit today? 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 0.5-1.0; has been assuming more responsibilities ( states this is due to pt having more difficulty with grocery shopping, cooking - remembering recipes, keeping track of lists); has been started on donepezil - trial of 5 mg dose since 10/2016 - dose has not been increased PLAN: - increased donepezil to 10 mg - will try this dose for 3 months - will taper and d/c if no clear benefit - could consider trial of memantine at that time - monitor functional status - MMSE in 12 months Other acquired deformity of toe 09/12/2010 01/23/2016 Ganglion of joint 09/12/2010 01/23/2016 Pain in joint, lower leg 10/31/2006 016 documented as of this encounter (statuses as of 07/12/2021) [facility] History of Past illness Narrative* Problem Noted Date Resolved Date Memory loss 01/23/2016 08/12/2018 Overview: MOCA (02/2016) 17 MMSE (07/2017) 18 (08/2016) 19 (02/2016) 19 Donepezil - trial 10/2016; no clear benefit at 5 mg; dose to max 07/2017 (10 mg); benefit noted at this dose Last Assessment & Plan: Assessment: 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 0.5-1.0; has been assuming more responsibilities ( states this is due to pt having more difficulty with grocery shopping, cooking - remembering recipes, keeping track of lists); has been started on donepezil - trial of 5 mg dose since 10/2016 - dose has not been increased PLAN: - increased donepezil to 10 mg - will try this dose for 3 months - will taper and d/c if no clear benefit - could consider trial of memantine at that time - monitor functional status - MMSE in 12 months Other acquired deformity of toe 09/12/2010 01/23/2016 Ganglion of joint 09/12/2010 01/23/2016 Pain in joint, lower leg 10/31/2006 016 documented as of this encounter (statuses as of 09/22/2021) [facility] History of Past illness Narrative* Problem Noted Date Resolved Date Memory loss 01/23/2016 08/12/2018 Overview: MOCA (02/2016) 17 MMSE (07/2017) 18 (08/2016) 19 (02/2016) 19 Donepezil - trial 10/2016; no clear benefit at 5 mg; dose to max 07/2017 (10 mg); benefit noted at this dose Last Assessment & Plan: Assessment: 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 0.5-1.0; has been assuming more responsibilities ( states this is due to pt having more difficulty with grocery shopping, cooking - remembering recipes, keeping track of lists); has been started on donepezil - trial of 5 mg dose since 10/2016 - dose has not been increased PLAN: - increased donepezil to 10 mg - will try this dose for 3 months - will taper and d/c if no clear benefit - could consider trial of memantine at that time - monitor functional status - MMSE in 12 months Other acquired deformity of toe 09/12/2010 01/23/2016 Ganglion of joint 09/12/2010 01/23/2016 Pain in joint, lower leg 10/31/2006 016 documented as of this encounter (statuses as of 09/26/2021) [facility] History of Past illness Narrative* Problem Noted Date Resolved Date Memory loss 01/23/2016 08/12/2018 Overview: MOCA (02/2016) 17 MMSE (07/2017) 18 (08/2016) 19 (02/2016) 19 Donepezil - trial 10/2016; no clear benefit at 5 mg; dose to max 07/2017 (10 mg); benefit noted at this dose Last Assessment & Plan: Assessment: 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 0.5-1.0; has been assuming more responsibilities ( states this is due to pt having more difficulty with grocery shopping, cooking - remembering recipes, keeping track of lists); has been started on donepezil - trial of 5 mg dose since 10/2016 - dose has not been increased PLAN: - increased donepezil to 10 mg - will try this dose for 3 months - will taper and d/c if no clear benefit - could consider trial of memantine at that time - monitor functional status - MMSE in 12 months Other acquired deformity of toe 09/12/2010 01/23/2016 Ganglion of joint 09/12/2010 01/23/2016 Pain in joint, lower leg 10/31/2006 016 documented as of this encounter (statuses as of 10/05/2021) [facility] History of Past illness Narrative* Problem Noted Date Resolved Date Memory loss 01/23/2016 08/12/2018 Overview: MOCA (02/2016) 17 MMSE (07/2017) 18 (08/2016) 19 (02/2016) 19 Donepezil - trial 10/2016; no clear benefit at 5 mg; dose to max 07/2017 (10 mg); benefit noted at this dose Last Assessment & Plan: Assessment: 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 0.5-1.0; has been assuming more responsibilities ( states this is due to pt having more difficulty with grocery shopping, cooking - remembering recipes, keeping track of lists); has been started on donepezil - trial of 5 mg dose since 10/2016 - dose has not been increased PLAN: - increased donepezil to 10 mg - will try this dose for 3 months - will taper and d/c if no clear benefit - could consider trial of memantine at that time - monitor functional status - MMSE in 12 months Other acquired deformity of toe 09/12/2010 01/23/2016 Ganglion of joint 09/12/2010 01/23/2016 Pain in joint, lower leg 10/31/2006 016 documented as of this encounter (statuses as of 10/25/2021) [facility] History of Past illness Narrative* Problem Noted Date Resolved Date Memory loss 01/23/2016 08/12/2018 Overview: MOCA (02/2016) 17 MMSE (07/2017) 18 (08/2016) 19 (02/2016) 19 Donepezil - trial 10/2016; no clear benefit at 5 mg; dose to max 07/2017 (10 mg); benefit noted at this dose Last Assessment & Plan: Assessment: 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 0.5-1.0; has been assuming more responsibilities ( states this is due to pt having more difficulty with grocery shopping, cooking - remembering recipes, keeping track of lists); has been started on donepezil - trial of 5 mg dose since 10/2016 - dose has not been increased PLAN: - increased donepezil to 10 mg - will try this dose for 3 months - will taper and d/c if no clear benefit - could consider trial of memantine at that time - monitor functional status - MMSE in 12 months Other acquired deformity of toe 09/12/2010 01/23/2016 Ganglion of joint 09/12/2010 01/23/2016 Pain in joint, lower leg 10/31/2006 016 documented as of this encounter (statuses as of 11/06/2021) [facility] History of Past illness Narrative* Problem Noted Date Resolved Date Memory loss 01/23/2016 08/12/2018 Overview: MOCA (02/2016) 17 MMSE (07/2017) 18 (08/2016) 19 (02/2016) 19 Donepezil - trial 10/2016; no clear benefit at 5 mg; dose to max 07/2017 (10 mg); benefit noted at this dose Last Assessment & Plan: Assessment: 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 0.5-1.0; has been assuming more responsibilities ( states this is due to pt having more difficulty with grocery shopping, cooking - remembering recipes, keeping track of lists); has been started on donepezil - trial of 5 mg dose since 10/2016 - dose has not been increased PLAN: - increased donepezil to 10 mg - will try this dose for 3 months - will taper and d/c if no clear benefit - could consider trial of memantine at that time - monitor functional status - MMSE in 12 months Other acquired deformity of toe 09/12/2010 01/23/2016 Ganglion of joint 09/12/2010 01/23/2016 Pain in joint, lower leg 10/31/2006 016 documented as of this encounter (statuses as of 11/16/2021) [facility] History of Past illness Narrative* Problem Noted Date Resolved Date Memory loss 01/23/2016 08/12/2018 Overview: MOCA (02/2016) 17 MMSE (07/2017) 18 (08/2016) 19 (02/2016) 19 Donepezil - trial 10/2016; no clear benefit at 5 mg; dose to max 07/2017 (10 mg); benefit noted at this dose Last Assessment & Plan: Assessment: 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 0.5-1.0; has been assuming more responsibilities ( states this is due to pt having more difficulty with grocery shopping, cooking - remembering recipes, keeping track of lists); has been started on donepezil - trial of 5 mg dose since 10/2016 - dose has not been increased PLAN: - increased donepezil to 10 mg - will try this dose for 3 months - will taper and d/c if no clear benefit - could consider trial of memantine at that time - monitor functional status - MMSE in 12 months Other acquired deformity of toe 09/12/2010 01/23/2016 Ganglion of joint 09/12/2010 01/23/2016 Pain in joint, lower leg 10/31/2006 016 documented as of this encounter (statuses as of 11/22/2021) [facility] History of Past illness Narrative* Problem Noted Date Resolved Date Memory loss 01/23/2016 08/12/2018 Overview: MOCA (02/2016) 17 MMSE (07/2017) 18 (08/2016) 19 (02/2016) 19 Donepezil - trial 10/2016; no clear benefit at 5 mg; dose to max 07/2017 (10 mg); benefit noted at this dose Last Assessment & Plan: Assessment: 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 0.5-1.0; has been assuming more responsibilities ( states this is due to pt having more difficulty with grocery shopping, cooking - remembering recipes, keeping track of lists); has been started on donepezil - trial of 5 mg dose since 10/2016 - dose has not been increased PLAN: - increased donepezil to 10 mg - will try this dose for 3 months - will taper and d/c if no clear benefit - could consider trial of memantine at that time - monitor functional status - MMSE in 12 months Other acquired deformity of toe 09/12/2010 01/23/2016 Ganglion of joint 09/12/2010 01/23/2016 Pain in joint, lower leg 10/31/2006 016 documented as of this encounter (statuses as of 12/27/2021) [facility] History of Past illness Narrative* Problem Noted Date Resolved Date Memory loss 01/23/2016 08/12/2018 Overview: MOCA (02/2016) 17 MMSE (07/2017) 18 (08/2016) 19 (02/2016) 19 Donepezil - trial 10/2016; no clear benefit at 5 mg; dose to max 07/2017 (10 mg); benefit noted at this dose Last Assessment & Plan: Assessment: 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 0.5-1.0; has been assuming more responsibilities ( states this is due to pt having more difficulty with grocery shopping, cooking - remembering recipes, keeping track of lists); has been started on donepezil - trial of 5 mg dose since 10/2016 - dose has not been increased PLAN: - increased donepezil to 10 mg - will try this dose for 3 months - will taper and d/c if no clear benefit - could consider trial of memantine at that time - monitor functional status - MMSE in 12 months Other acquired deformity of toe 09/12/2010 01/23/2016 Ganglion of joint 09/12/2010 01/23/2016 Pain in joint, lower leg 10/31/2006 016 documented as of this encounter (statuses as of 12/28/2021) [facility] History of Past illness Narrative* Problem Noted Date Resolved Date Memory loss 01/23/2016 08/12/2018 Overview: MOCA (02/2016) 17 MMSE (07/2017) 18 (08/2016) 19 (02/2016) 19 Donepezil - trial 10/2016; no clear benefit at 5 mg; dose to max 07/2017 (10 mg); benefit noted at this dose Last Assessment & Plan: Assessment: 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 0.5-1.0; has been assuming more responsibilities ( states this is due to pt having more difficulty with grocery shopping, cooking - remembering recipes, keeping track of lists); has been started on donepezil - trial of 5 mg dose since 10/2016 - dose has not been increased PLAN: - increased donepezil to 10 mg - will try this dose for 3 months - will taper and d/c if no clear benefit - could consider trial of memantine at that time - monitor functional status - MMSE in 12 months Other acquired deformity of toe 09/12/2010 01/23/2016 Ganglion of joint 09/12/2010 01/23/2016 Pain in joint, lower leg 10/31/2006 016 documented as of this encounter (statuses as of 03/29/2022) [facility] History of Past illness Narrative* Problem Noted Date Resolved Date Memory loss 01/23/2016 08/12/2018 Overview: MOCA (02/2016) 17 MMSE (07/2017) 18 (08/2016) 19 (02/2016) 19 Donepezil - trial 10/2016; no clear benefit at 5 mg; dose to max 07/2017 (10 mg); benefit noted at this dose Last Assessment & Plan: Assessment: 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 0.5-1.0; has been assuming more responsibilities ( states this is due to pt having more difficulty with grocery shopping, cooking - remembering recipes, keeping track of lists); has been started on donepezil - trial of 5 mg dose since 10/2016 - dose has not been increased PLAN: - increased donepezil to 10 mg - will try this dose for 3 months - will taper and d/c if no clear benefit - could consider trial of memantine at that time - monitor functional status - MMSE in 12 months Other acquired deformity of toe 09/12/2010 01/23/2016 Ganglion of joint 09/12/2010 01/23/2016 Pain in joint, lower leg 10/31/2006 016 documented as of this encounter (statuses as of 07/12/2022) [facility] History of Past illness Narrative* Problem Noted Date Resolved Date Memory loss 01/23/2016 08/12/2018 Overview: MOCA (02/2016) 17 MMSE (07/2017) 18 (08/2016) 19 (02/2016) 19 Donepezil - trial 10/2016; no clear benefit at 5 mg; dose to max 07/2017 (10 mg); benefit noted at this dose Last Assessment & Plan: Assessment: 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 0.5-1.0; has been assuming more responsibilities ( states this is due to pt having more difficulty with grocery shopping, cooking - remembering recipes, keeping track of lists); has been started on donepezil - trial of 5 mg dose since 10/2016 - dose has not been increased PLAN: - increased donepezil to 10 mg - will try this dose for 3 months - will taper and d/c if no clear benefit - could consider trial of memantine at that time - monitor functional status - MMSE in 12 months Other acquired deformity of toe 09/12/2010 01/23/2016 Ganglion of joint 09/12/2010 01/23/2016 Pain in joint, lower leg 10/31/2006 016 documented as of this encounter (statuses as of 07/13/2022) [facility] History of Past illness Narrative* Problem Noted Date Resolved Date Memory loss 01/23/2016 08/12/2018 Overview: MOCA (02/2016) 17 MMSE (07/2017) 18 (08/2016) 19 (02/2016) 19 Donepezil - trial 10/2016; no clear benefit at 5 mg; dose to max 07/2017 (10 mg); benefit noted at this dose Last Assessment & Plan: Assessment: 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 0.5-1.0; has been assuming more responsibilities ( states this is due to pt having more difficulty with grocery shopping, cooking - remembering recipes, keeping track of lists); has been started on donepezil - trial of 5 mg dose since 10/2016 - dose has not been increased PLAN: - increased donepezil to 10 mg - will try this dose for 3 months - will taper and d/c if no clear benefit - could consider trial of memantine at that time - monitor functional status - MMSE in 12 months Other acquired deformity of toe 09/12/2010 01/23/2016 Ganglion of joint 09/12/2010 01/23/2016 Pain in joint, lower leg 10/31/2006 016 documented as of this encounter (statuses as of 07/25/2022) [facility] History of Past illness Narrative* Problem Noted Date Resolved Date Memory loss 01/23/2016 08/12/2018 Overview: MOCA (02/2016) 17 MMSE (07/2017) 18 (08/2016) 19 (02/2016) 19 Donepezil - trial 10/2016; no clear benefit at 5 mg; dose to max 07/2017 (10 mg); benefit noted at this dose Last Assessment & Plan: Assessment: 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 0.5-1.0; has been assuming more responsibilities ( states this is due to pt having more difficulty with grocery shopping, cooking - remembering recipes, keeping track of lists); has been started on donepezil - trial of 5 mg dose since 10/2016 - dose has not been increased PLAN: - increased donepezil to 10 mg - will try this dose for 3 months - will taper and d/c if no clear benefit - could consider trial of memantine at that time - monitor functional status - MMSE in 12 months Other acquired deformity of toe 09/12/2010 01/23/2016 Ganglion of joint 09/12/2010 01/23/2016 Pain in joint, lower leg 10/31/2006 016 documented as of this encounter (statuses as of 08/02/2022) [facility] History of Past illness Narrative* Problem Noted Date Diagnosed Date Resolved Date Memory loss 01/23/2016 08/12/2018 Overview: MOCA (02/2016) 17 MMSE (07/2017) 18 (08/2016) 19 (02/2016) 19 Donepezil - trial 10/2016; no clear benefit at 5 mg; dose to max 07/2017 (10 mg); benefit noted at this dose Last Assessment & Plan: Assessment: 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 0.5-1.0; has been assuming more responsibilities ( states this is due to pt having more difficulty with grocery shopping, cooking - remembering recipes, keeping track of lists); has been started on donepezil - trial of 5 mg dose since 10/2016 - dose has not been increased PLAN: - increased donepezil to 10 mg - will try this dose for 3 months - will taper and d/c if no clear benefit - could consider trial of memantine at that time - monitor functional status - MMSE in 12 months Other acquired deformity of toe 09/12/2010 01/23/2016 Ganglion of joint 09/12/2010 01/23/2016 Pain in joint, lower leg 10/31/2006 documented as of this encounter (statuses as of 10/08/2022) [facility] History of Past illness Narrative* Problem Noted Date Diagnosed Date Resolved Date Memory loss 01/23/2016 08/12/2018 Overview: MOCA (02/2016) 17 MMSE (07/2017) 18 (08/2016) 19 (02/2016) 19 Donepezil - trial 10/2016; no clear benefit at 5 mg; dose to max 07/2017 (10 mg); benefit noted at this dose Last Assessment & Plan: Assessment: 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 0.5-1.0; has been assuming more responsibilities ( states this is due to pt having more difficulty with grocery shopping, cooking - remembering recipes, keeping track of lists); has been started on donepezil - trial of 5 mg dose since 10/2016 - dose has not been increased PLAN: - increased donepezil to 10 mg - will try this dose for 3 months - will taper and d/c if no clear benefit - could consider trial of memantine at that time - monitor functional status - MMSE in 12 months Other acquired deformity of toe 09/12/2010 01/23/2016 Ganglion of joint 09/12/2010 01/23/2016 Pain in joint, lower leg 10/31/2006 documented as of this encounter (statuses as of 10/10/2022) [facility] History of Past illness Narrative* Problem Noted Date Diagnosed Date Resolved Date Memory loss 01/23/2016 08/12/2018 Overview: MOCA (02/2016) 17 MMSE (07/2017) 18 (08/2016) 19 (02/2016) 19 Donepezil - trial 10/2016; no clear benefit at 5 mg; dose to max 07/2017 (10 mg); benefit noted at this dose Last Assessment & Plan: Assessment: 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 0.5-1.0; has been assuming more responsibilities ( states this is due to pt having more difficulty with grocery shopping, cooking - remembering recipes, keeping track of lists); has been started on donepezil - trial of 5 mg dose since 10/2016 - dose has not been increased PLAN: - increased donepezil to 10 mg - will try this dose for 3 months - will taper and d/c if no clear benefit - could consider trial of memantine at that time - monitor functional status - MMSE in 12 months Other acquired deformity of toe 09/12/2010 01/23/2016 Ganglion of joint 09/12/2010 01/23/2016 Pain in joint, lower leg 10/31/2006 documented as of this encounter (statuses as of 10/19/2022) [facility] History of Past illness Narrative* Problem Noted Date Diagnosed Date Resolved Date Memory loss 01/23/2016 08/12/2018 Overview: MOCA (02/2016) 17 MMSE (07/2017) 18 (08/2016) 19 (02/2016) 19 Donepezil - trial 10/2016; no clear benefit at 5 mg; dose to max 07/2017 (10 mg); benefit noted at this dose Last Assessment & Plan: Assessment: 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 0.5-1.0; has been assuming more responsibilities ( states this is due to pt having more difficulty with grocery shopping, cooking - remembering recipes, keeping track of lists); has been started on donepezil - trial of 5 mg dose since 10/2016 - dose has not been increased PLAN: - increased donepezil to 10 mg - will try this dose for 3 months - will taper and d/c if no clear benefit - could consider trial of memantine at that time - monitor functional status - MMSE in 12 months Other acquired deformity of toe 09/12/2010 01/23/2016 Ganglion of joint 09/12/2010 01/23/2016 Pain in joint, lower leg 10/31/2006 documented as of this encounter (statuses as of 11/06/2022) [facility] History of Past illness Narrative* Problem Noted Date Diagnosed Date Resolved Date Memory loss 01/23/2016 08/12/2018 Overview: MOCA (02/2016) 17 MMSE (07/2017) 18 (08/2016) 19 (02/2016) 19 Donepezil - trial 10/2016; no clear benefit at 5 mg; dose to max 07/2017 (10 mg); benefit noted at this dose Last Assessment & Plan: Assessment: 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 0.5-1.0; has been assuming more responsibilities ( states this is due to pt having more difficulty with grocery shopping, cooking - remembering recipes, keeping track of lists); has been started on donepezil - trial of 5 mg dose since 10/2016 - dose has not been increased PLAN: - increased donepezil to 10 mg - will try this dose for 3 months - will taper and d/c if no clear benefit - could consider trial of memantine at that time - monitor functional status - MMSE in 12 months Other acquired deformity of toe 09/12/2010 01/23/2016 Ganglion of joint 09/12/2010 01/23/2016 Pain in joint, lower leg 10/31/2006 documented as of this encounter (statuses as of 11/14/2022) [facility] History of Past illness Narrative* Problem Noted Date Diagnosed Date Resolved Date Memory loss 01/23/2016 08/12/2018 Overview: MOCA (02/2016) 17 MMSE (07/2017) 18 (08/2016) 19 (02/2016) 19 Donepezil - trial 10/2016; no clear benefit at 5 mg; dose to max 07/2017 (10 mg); benefit noted at this dose Last Assessment & Plan: Assessment: 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 0.5-1.0; has been assuming more responsibilities ( states this is due to pt having more difficulty with grocery shopping, cooking - remembering recipes, keeping track of lists); has been started on donepezil - trial of 5 mg dose since 10/2016 - dose has not been increased PLAN: - increased donepezil to 10 mg - will try this dose for 3 months - will taper and d/c if no clear benefit - could consider trial of memantine at that time - monitor functional status - MMSE in 12 months Other acquired deformity of toe 09/12/2010 01/23/2016 Ganglion of joint 09/12/2010 01/23/2016 Pain in joint, lower leg 10/31/2006 documented as of this encounter (statuses as of 11/21/2022) [facility] History of Past illness Narrative* Problem Noted Date Diagnosed Date Resolved Date Memory loss 01/23/2016 08/12/2018 Overview: MOCA (02/2016) 17 MMSE (07/2017) 18 (08/2016) 19 (02/2016) 19 Donepezil - trial 10/2016; no clear benefit at 5 mg; dose to max 07/2017 (10 mg); benefit noted at this dose Last Assessment & Plan: Assessment: 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 0.5-1.0; has been assuming more responsibilities ( states this is due to pt having more difficulty with grocery shopping, cooking - remembering recipes, keeping track of lists); has been started on donepezil - trial of 5 mg dose since 10/2016 - dose has not been increased PLAN: - increased donepezil to 10 mg - will try this dose for 3 months - will taper and d/c if no clear benefit - could consider trial of memantine at that time - monitor functional status - MMSE in 12 months Other acquired deformity of toe 09/12/2010 01/23/2016 Ganglion of joint 09/12/2010 01/23/2016 Pain in joint, lower leg 10/31/2006 documented as of this encounter (statuses as of 03/05/2023) [facility] History of Past illness Narrative* Problem Noted Date Diagnosed Date Resolved Date Memory loss 01/23/2016 08/12/2018 Overview: MOCA (02/2016) 17 MMSE (07/2017) 18 (08/2016) 19 (02/2016) 19 Donepezil - trial 10/2016; no clear benefit at 5 mg; dose to max 07/2017 (10 mg); benefit noted at this dose Last Assessment & Plan: Assessment: 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 0.5-1.0; has been assuming more responsibilities ( states this is due to pt having more difficulty with grocery shopping, cooking - remembering recipes, keeping track of lists); has been started on donepezil - trial of 5 mg dose since 10/2016 - dose has not been increased PLAN: - increased donepezil to 10 mg - will try this dose for 3 months - will taper and d/c if no clear benefit - could consider trial of memantine at that time - monitor functional status - MMSE in 12 months Other acquired deformity of toe 09/12/2010 01/23/2016 Ganglion of joint 09/12/2010 01/23/2016 Pain in joint, lower leg 10/31/2006 documented as of this encounter (statuses as of 03/08/2023) [facility] History of Past illness Narrative* Problem Noted Date Diagnosed Date Resolved Date Memory loss 01/23/2016 08/12/2018 Overview: MOCA (02/2016) 17 MMSE (07/2017) 18 (08/2016) 19 (02/2016) 19 Donepezil - trial 10/2016; no clear benefit at 5 mg; dose to max 07/2017 (10 mg); benefit noted at this dose Last Assessment & Plan: Assessment: 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 0.5-1.0; has been assuming more responsibilities ( states this is due to pt having more difficulty with grocery shopping, cooking - remembering recipes, keeping track of lists); has been started on donepezil - trial of 5 mg dose since 10/2016 - dose has not been increased PLAN: - increased donepezil to 10 mg - will try this dose for 3 months - will taper and d/c if no clear benefit - could consider trial of memantine at that time - monitor functional status - MMSE in 12 months Other acquired deformity of toe 09/12/2010 01/23/2016 Ganglion of joint 09/12/2010 01/23/2016 Pain in joint, lower leg 10/31/2006 documented as of this encounter (statuses as of 2023) [facility] History of Past illness Narrative* Problem Noted Date Diagnosed Date Resolved Date Memory loss 01/23/2016 08/12/2018 Overview: MOCA (02/2016) 17 MMSE (07/2017) 18 (08/2016) 19 (02/2016) 19 Donepezil - trial 10/2016; no clear benefit at 5 mg; dose to max 07/2017 (10 mg); benefit noted at this dose Last Assessment & Plan: Assessment: 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 0.5-1.0; has been assuming more responsibilities ( states this is due to pt having more difficulty with grocery shopping, cooking - remembering recipes, keeping track of lists); has been started on donepezil - trial of 5 mg dose since 10/2016 - dose has not been increased PLAN: - increased donepezil to 10 mg - will try this dose for 3 months - will taper and d/c if no clear benefit - could consider trial of memantine at that time - monitor functional status - MMSE in 12 months Other acquired deformity of toe 09/12/2010 01/23/2016 Ganglion of joint 09/12/2010 01/23/2016 Pain in joint, lower leg 10/31/2006 documented as of this encounter (statuses as of 05/03/2023) [facility] History of Past illness Narrative* Problem Noted Date Diagnosed Date Resolved Date Memory loss 01/23/2016 08/12/2018 Overview: MOCA (02/2016) 17 MMSE (07/2017) 18 (08/2016) 19 (02/2016) 19 Donepezil - trial 10/2016; no clear benefit at 5 mg; dose to max 07/2017 (10 mg); benefit noted at this dose Last Assessment & Plan: Assessment: 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 0.5-1.0; has been assuming more responsibilities ( states this is due to pt having more difficulty with grocery shopping, cooking - remembering recipes, keeping track of lists); has been started on donepezil - trial of 5 mg dose since 10/2016 - dose has not been increased PLAN: - increased donepezil to 10 mg - will try this dose for 3 months - will taper and d/c if no clear benefit - could consider trial of memantine at that time - monitor functional status - MMSE in 12 months Other acquired deformity of toe 09/12/2010 01/23/2016 Ganglion of joint 09/12/2010 01/23/2016 Pain in joint, lower leg 10/31/2006 documented as of this encounter (statuses as of 05/07/2023) [facility] History of Past illness Narrative* Problem Noted Date Diagnosed Date Resolved Date Memory loss 01/23/2016 08/12/2018 Overview: MOCA (02/2016) 17 MMSE (07/2017) 18 (08/2016) 19 (02/2016) 19 Donepezil - trial 10/2016; no clear benefit at 5 mg; dose to max 07/2017 (10 mg); benefit noted at this dose Last Assessment & Plan: Assessment: 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 0.5-1.0; has been assuming more responsibilities ( states this is due to pt having more difficulty with grocery shopping, cooking - remembering recipes, keeping track of lists); has been started on donepezil - trial of 5 mg dose since 10/2016 - dose has not been increased PLAN: - increased donepezil to 10 mg - will try this dose for 3 months - will taper and d/c if no clear benefit - could consider trial of memantine at that time - monitor functional status - MMSE in 12 months Other acquired deformity of toe 09/12/2010 01/23/2016 Ganglion of joint 09/12/2010 01/23/2016 Pain in joint, lower leg 10/31/2006 documented as of this encounter (statuses as of 05/08/2023) [facility] History of Past illness Narrative* Problem Noted Date Diagnosed Date Resolved Date Memory loss 01/23/2016 08/12/2018 Overview: MOCA (02/2016) 17 MMSE (07/2017) 18 (08/2016) 19 (02/2016) 19 Donepezil - trial 10/2016; no clear benefit at 5 mg; dose to max 07/2017 (10 mg); benefit noted at this dose Last Assessment & Plan: Assessment: 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 0.5-1.0; has been assuming more responsibilities ( states this is due to pt having more difficulty with grocery shopping, cooking - remembering recipes, keeping track of lists); has been started on donepezil - trial of 5 mg dose since 10/2016 - dose has not been increased PLAN: - increased donepezil to 10 mg - will try this dose for 3 months - will taper and d/c if no clear benefit - could consider trial of memantine at that time - monitor functional status - MMSE in 12 months Other acquired deformity of toe 09/12/2010 01/23/2016 Ganglion of joint 09/12/2010 01/23/2016 Pain in joint, lower leg 10/31/2006 documented as of this encounter (statuses as of 05/08/2023) [facility] History of Past illness Narrative* Problem Noted Date Diagnosed Date Resolved Date Memory loss 01/23/2016 08/12/2018 Overview: MOCA (02/2016) 17 MMSE (07/2017) 18 (08/2016) 19 (02/2016) 19 Donepezil - trial 10/2016; no clear benefit at 5 mg; dose to max 07/2017 (10 mg); benefit noted at this dose Last Assessment & Plan: Assessment: 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 0.5-1.0; has been assuming more responsibilities ( states this is due to pt having more difficulty with grocery shopping, cooking - remembering recipes, keeping track of lists); has been started on donepezil - trial of 5 mg dose since 10/2016 - dose has not been increased PLAN: - increased donepezil to 10 mg - will try this dose for 3 months - will taper and d/c if no clear benefit - could consider trial of memantine at that time - monitor functional status - MMSE in 12 months Other acquired deformity of toe 09/12/2010 01/23/2016 Ganglion of joint 09/12/2010 01/23/2016 Pain in joint, lower leg 10/31/2006 documented as of this encounter (statuses as of 05/10/2023) [facility] History of Past illness Narrative* Problem Noted Date Diagnosed Date Resolved Date Memory loss 01/23/2016 08/12/2018 Overview: MOCA (02/2016) 17 MMSE (07/2017) 18 (08/2016) 19 (02/2016) 19 Donepezil - trial 10/2016; no clear benefit at 5 mg; dose to max 07/2017 (10 mg); benefit noted at this dose Last Assessment & Plan: Assessment: 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 0.5-1.0; has been assuming more responsibilities ( states this is due to pt having more difficulty with grocery shopping, cooking - remembering recipes, keeping track of lists); has been started on donepezil - trial of 5 mg dose since 10/2016 - dose has not been increased PLAN: - increased donepezil to 10 mg - will try this dose for 3 months - will taper and d/c if no clear benefit - could consider trial of memantine at that time - monitor functional status - MMSE in 12 months Other acquired deformity of toe 09/12/2010 01/23/2016 Ganglion of joint 09/12/2010 01/23/2016 Pain in joint, lower leg 10/31/2006 documented as of this encounter (statuses as of 05/27/2023) [facility] History of Past illness Narrative* Problem Noted Date Diagnosed Date Resolved Date Memory loss 01/23/2016 08/12/2018 Overview: MOCA (02/2016) 17 MMSE (07/2017) 18 (08/2016) 19 (02/2016) 19 Donepezil - trial 10/2016; no clear benefit at 5 mg; dose to max 07/2017 (10 mg); benefit noted at this dose Last Assessment & Plan: Assessment: 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 0.5-1.0; has been assuming more responsibilities ( states this is due to pt having more difficulty with grocery shopping, cooking - remembering recipes, keeping track of lists); has been started on donepezil - trial of 5 mg dose since 10/2016 - dose has not been increased PLAN: - increased donepezil to 10 mg - will try this dose for 3 months - will taper and d/c if no clear benefit - could consider trial of memantine at that time - monitor functional status - MMSE in 12 months Other acquired deformity of toe 09/12/2010 01/23/2016 Ganglion of joint 09/12/2010 01/23/2016 Pain in joint, lower leg 10/31/2006 documented as of this encounter (statuses as of 06/03/2023) [facility] History of Past illness Narrative* Problem Noted Date Diagnosed Date Resolved Date Memory loss 01/23/2016 08/12/2018 Overview: MOCA (02/2016) 17 MMSE (07/2017) 18 (08/2016) 19 (02/2016) 19 Donepezil - trial 10/2016; no clear benefit at 5 mg; dose to max 07/2017 (10 mg); benefit noted at this dose Last Assessment & Plan: Assessment: 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 0.5-1.0; has been assuming more responsibilities ( states this is due to pt having more difficulty with grocery shopping, cooking - remembering recipes, keeping track of lists); has been started on donepezil - trial of 5 mg dose since 10/2016 - dose has not been increased PLAN: - increased donepezil to 10 mg - will try this dose for 3 months - will taper and d/c if no clear benefit - could consider trial of memantine at that time - monitor functional status - MMSE in 12 months Other acquired deformity of toe 09/12/2010 01/23/2016 Ganglion of joint 09/12/2010 01/23/2016 Pain in joint, lower leg 10/31/2006 documented as of this encounter (statuses as of 06/11/2023) [facility] History of Past illness Narrative* Problem Noted Date Diagnosed Date Resolved Date Memory loss 01/23/2016 08/12/2018 Overview: MOCA (02/2016) 17 MMSE (07/2017) 18 (08/2016) 19 (02/2016) 19 Donepezil - trial 10/2016; no clear benefit at 5 mg; dose to max 07/2017 (10 mg); benefit noted at this dose Last Assessment & Plan: Assessment: 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 0.5-1.0; has been assuming more responsibilities ( states this is due to pt having more difficulty with grocery shopping, cooking - remembering recipes, keeping track of lists); has been started on donepezil - trial of 5 mg dose since 10/2016 - dose has not been increased PLAN: - increased donepezil to 10 mg - will try this dose for 3 months - will taper and d/c if no clear benefit - could consider trial of memantine at that time - monitor functional status - MMSE in 12 months Other acquired deformity of toe 09/12/2010 01/23/2016 Ganglion of joint 09/12/2010 01/23/2016 Pain in joint, lower leg 10/31/2006 documented as of this encounter (statuses as of 06/17/2023) [facility] History of Past illness Narrative* Problem Noted Date Diagnosed Date Resolved Date Memory loss 01/23/2016 08/12/2018 Overview: MOCA (02/2016) 17 MMSE (07/2017) 18 (08/2016) 19 (02/2016) 19 Donepezil - trial 10/2016; no clear benefit at 5 mg; dose to max 07/2017 (10 mg); benefit noted at this dose Last Assessment & Plan: Assessment: 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 0.5-1.0; has been assuming more responsibilities ( states this is due to pt having more difficulty with grocery shopping, cooking - remembering recipes, keeping track of lists); has been started on donepezil - trial of 5 mg dose since 10/2016 - dose has not been increased PLAN: - increased donepezil to 10 mg - will try this dose for 3 months - will taper and d/c if no clear benefit - could consider trial of memantine at that time - monitor functional status - MMSE in 12 months Other acquired deformity of toe 09/12/2010 01/23/2016 Ganglion of joint 09/12/2010 01/23/2016 Pain in joint, lower leg 10/31/2006 documented as of this encounter (statuses as of 06/25/2023) [facility]Eval[facility] noteNo assessment information availableWCleveland [facility] Work Phone: Evaluation note* Diagnosis Acquired hypothyroidism Unspecified hypothyroidism documented in this encounter [facility]* Diagnosis Gastroesophageal reflux disease without esophagitis Esophageal reflux documented in this encounter [facility]* 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 Memory changes Memory loss documented in this encounter [facility]* Diagnosis Medication management Encounter for long-term (current) use of other medications documented in this encounter [facility]* Diagnosis Dementia without behavioral disturbance, unspecified dementia type (HCC) Cognitive communication deficit documented [facility] this encounter [facility]* Diagnosis Projectile vomiting with nausea- Primary New onset of headaches Headache Essential hypertension Unspecified essential hypertension Mixed hyperlipidemia 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 documented [facility] this [facility]* 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 [facility]* Diagnosis Essential hypertension Unspecified essential hypertension documented in this encounter [facility]* Diagnosis Projectile vomiting with nausea- Primary documented in this encounter [facility]* Diagnosis Projectile vomiting with nausea [facility] Diagnosis Mixed hyperlipidemia [facility] Diagnosis Epidermal inclusion cyst Sebaceous cyst Dysesthesia Disturbance of skin sensation documented in this [facility] Diagnosis Skin cyst- Primary Sebaceous cyst Dysesthesia Disturbance of skin sensation documented [facility] Diagnosis Mixed hyperlipidemia documented in [facility] Diagnosis Mass of soft tissue of left upper extremity documented in this [facility] Diagnosis Soft tissue mass- Primary Disorders of soft tissue, unspecified Tenderness Other general symptoms documented [facility] this [facility] Diagnosis Soft tissue mass Disorders of soft tissue, unspecified Tenderness Other general symptoms [facility] Diagnosis Soft tissue mass- Primary Disorders of soft tissue, unspecified documented [facility] this [facility] Diagnosis Mixed hyperlipidemia documented in this [facility] Diagnosis PVC's (premature ventricular contractions)- Primary Other premature beats Essential hypertension Unspecified essential hypertension Mixed hyperlipidemia [facility] Diagnosis COVID- Primary documented in this [facility] Diagnosis Chronic pain of left knee- Primary Pain in joint, lower leg Chronic knee instability, left [facility] Diagnosis Acquired hallux limitus of right foot- Primary Deformity of toe of right foot Pain of toe of right foot Pain in limb Onychomycosis Dermatophytosis of nail Pain in toe of left foot Pain in limb Pain in toe of right foot Pain in limb Callus Corns and callosities [facility] Diagnosis Deformity of toe of right foot documented in [facility] Diagnosis Gastroesophageal reflux disease without esophagitis Esophageal reflux documented in this [facility] Diagnosis Chronic pain of left knee- Primary Pain in joint, lower leg Chronic knee instability, left documented [facility] Diagnosis Chronic pain of left knee- Primary Pain in joint, lower leg Chronic knee instability, left documented [facility] Diagnosis Chronic pain of left knee- Primary Pain in joint, lower leg Chronic knee instability, left documented [facility] Diagnosis Chronic pain of left knee- Primary Pain in joint, lower leg Chronic knee instability, left [facility] Diagnosis Chronic pain of left knee- Primary Pain in joint, lower leg Chronic knee instability, left [facility] Diagnosis Acquired hypothyroidism Unspecified hypothyroidism documented in this [facility] Diagnosis Acquired hypothyroidism Unspecified hypothyroidism documented in this [facility] Diagnosis Alzheimer's disease (HCC)- Primary Alzheimer's disease Weight loss Loss of weight Acquired hypothyroidism Unspecified hypothyroidism Essential hypertension Unspecified essential hypertension Primary osteoarthritis involving multiple joints Vitamin B12 deficiency Other B-complex deficiencies Dementia with behavioral disturbance (HCC) Dementia, unspecified, with behavioral disturbance [facility] Diagnosis B12 deficiency- Primary Other B-complex deficiencies Memory loss [place] (hard of hearing), unspecified laterality Balance problem Other symptoms involving nervous and musculoskeletal systems Gastroesophageal reflux disease without esophagitis Esophageal reflux Memory loss B12 deficiency Other B-complex deficiencies B12 deficiency- Primary Other B-complex deficiencies Dementia without behavioral disturbance, unspecified dementia type Memory loss Alzheimer's disease (HCC)- Primary Alzheimer's disease Anemia, unspecified type documented [facility] this [facility] Diagnosis B12 deficiency- Primary Other B-complex deficiencies Memory loss [place] (hard of hearing), unspecified laterality Balance problem Other symptoms involving nervous and musculoskeletal systems Gastroesophageal reflux disease without esophagitis Esophageal reflux Memory loss B12 deficiency Other B-complex deficiencies B12 deficiency- Primary Other B-complex deficiencies Dementia without behavioral disturbance, unspecified dementia type Memory loss Alzheimer's disease (HCC)- Primary Alzheimer's disease Anemia, unspecified type documented [facility] this [facility] Diagnosis B12 deficiency- Primary Other B-complex deficiencies Memory loss [place] (hard of hearing), unspecified laterality Balance problem Other symptoms involving nervous and musculoskeletal systems Gastroesophageal reflux disease without esophagitis Esophageal reflux Memory loss B12 deficiency Other B-complex deficiencies B12 deficiency- Primary Other B-complex deficiencies Dementia without behavioral disturbance, unspecified dementia type Memory loss CKD (chronic kidney disease) stage 3, GFR 30-59 ml/min (HCC) Chronic kidney disease, Stage III (moderate) Mixed hyperlipidemia documented in this [facility] Diagnosis B12 deficiency- Primary Other B-complex deficiencies Memory loss [place] (hard of hearing), unspecified laterality Balance problem Other symptoms involving nervous and musculoskeletal systems Gastroesophageal reflux disease without esophagitis Esophageal reflux Memory loss B12 deficiency Other B-complex deficiencies B12 deficiency- Primary Other B-complex deficiencies Dementia without behavioral disturbance, unspecified dementia type Memory loss Alzheimer's dementia without behavioral disturbance, psychotic disturbance, mood disturbance, or anxiety, unspecified dementia severity, unspecified timing of dementia onset (HCC)- Primary documented in this [facility] Diagnosis B12 deficiency- Primary Other B-complex deficiencies Memory loss [place] (hard of hearing), unspecified laterality Balance problem Other symptoms involving nervous and musculoskeletal systems Gastroesophageal reflux disease without esophagitis Esophageal reflux Memory loss B12 deficiency Other B-complex deficiencies B12 deficiency- Primary Other B-complex deficiencies Dementia without behavioral disturbance, unspecified dementia type Memory loss Persistent atrial fibrillation (HCC)- Primary Atrial fibrillation PVC's (premature ventricular contractions) Other premature beats Essential hypertension Unspecified essential hypertension Mixed hyperlipidemia [facility] Diagnosis B12 deficiency- Primary Other B-complex deficiencies Memory loss [place] (hard of hearing), unspecified laterality Balance problem Other symptoms involving nervous and musculoskeletal systems Gastroesophageal reflux disease without esophagitis Esophageal reflux Memory loss B12 deficiency Other B-complex deficiencies B12 deficiency- Primary Other B-complex deficiencies Dementia without behavioral disturbance, unspecified dementia type Memory loss Acquired hypothyroidism- Primary Unspecified hypothyroidism Dementia with behavioral disturbance (HCC) Dementia, unspecified, with behavioral disturbance Essential hypertension Unspecified essential hypertension Anemia, unspecified type Stage 3a chronic kidney disease (HCC) Caregiver stress Other health problem within the family [facility] Diagnosis B12 deficiency- Primary Other B-complex deficiencies Memory loss [place] (hard of hearing), unspecified laterality Balance problem Other symptoms involving nervous and musculoskeletal systems Gastroesophageal reflux disease without esophagitis Esophageal reflux Memory loss B12 deficiency Other B-complex deficiencies B12 deficiency- Primary Other B-complex deficiencies Dementia without behavioral disturbance, unspecified dementia type Memory loss Essential hypertension Unspecified essential hypertension Dementia with behavioral disturbance (HCC) Dementia, unspecified, with behavioral disturbance Alzheimer's disease (HCC) Alzheimer's disease Acquired hypothyroidism Unspecified hypothyroidism documented [facility] Diagnosis B12 deficiency- Primary Other B-complex deficiencies Memory loss [place] (hard of hearing), unspecified laterality Balance problem Other symptoms involving nervous and musculoskeletal systems Gastroesophageal reflux disease without esophagitis Esophageal reflux Memory loss B12 deficiency Other B-complex deficiencies B12 deficiency- Primary Other B-complex deficiencies Dementia without behavioral disturbance, unspecified dementia type Memory loss Alzheimer's disease (HCC) Alzheimer's disease documented [facility] Diagnosis B12 deficiency- Primary Other B-complex deficiencies Memory loss [place] (hard of hearing), unspecified laterality Balance problem Other symptoms involving nervous and musculoskeletal systems Gastroesophageal reflux disease without esophagitis Esophageal reflux Memory loss B12 deficiency Other B-complex deficiencies B12 deficiency- Primary Other B-complex deficiencies Dementia without behavioral disturbance, unspecified dementia type Memory loss Persistent atrial fibrillation (HCC)- Primary Atrial fibrillation Essential hypertension Unspecified essential hypertension Mixed hyperlipidemia PVC's (premature ventricular contractions) Other premature beats [facility] Diagnosis B12 deficiency- Primary Other B-complex deficiencies Memory loss [place] (hard of hearing), unspecified laterality Balance problem Other symptoms involving nervous and musculoskeletal systems Gastroesophageal reflux disease without esophagitis Esophageal reflux Memory loss B12 deficiency Other B-complex deficiencies B12 deficiency- Primary Other B-complex deficiencies Dementia without behavioral disturbance, unspecified dementia type Memory loss Dementia without behavioral disturbance (HCC)- Primary Dementia, unspecified, without behavioral disturbance Medical non-compliance Personal history of noncompliance with medical treatment, presenting hazards to health Acquired hypothyroidism Unspecified hypothyroidism documented in this [facility] Diagnosis B12 deficiency- Primary Other B-complex deficiencies Memory loss [place] (hard of hearing), unspecified laterality Balance problem Other symptoms involving nervous and musculoskeletal systems Gastroesophageal reflux disease without esophagitis Esophageal reflux Memory loss B12 deficiency Other B-complex deficiencies B12 deficiency- Primary Other B-complex deficiencies Dementia without behavioral disturbance, unspecified dementia type Memory loss Persistent atrial fibrillation (HCC)- Primary Atrial fibrillation Medicare annual wellness visit, subsequent Routine general medical examination at a health care facility Severe late onset Alzheimer's dementia, unspecified whether behavioral, psychotic, or mood disturbance or anxiety (HCC) Stage 3a chronic kidney disease (HCC) Screening for depression Encounter for screening examination for other mental health and behavioral disorders documented in this encounter [facility] note* Diagnosis B12 deficiency- Primary Other B-complex deficiencies Memory loss [place] (hard of hearing), unspecified laterality Balance problem Other symptoms involving nervous and musculoskeletal systems Gastroesophageal reflux disease without esophagitis Esophageal reflux Memory loss B12 deficiency Other B-complex deficiencies B12 deficiency- Primary Other B-complex deficiencies Dementia without behavioral disturbance, unspecified dementia type Memory loss Palliative care by specialist- Primary 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 They may need adjustment of your thyroid medications. That can be done as an outpatient.[facility] Work Phone: Reason for referral (narrative)* Diagnostic Procedure Only (Routine) - Authorized Specialty Diagnoses / Procedures Referred By Suzanne faulkner Referred To Contact US IMAGING Diagnoses Projectile vomiting with nausea Procedures US ABD RT UPPER QUADRANT US ABDOMINAL REAL TIME W/IMAGE LIMITED Faith William PA-C [address] [facility] [address] Us Imaging Referral ID Status Reason Start Date Expiration Date Visits Requested Visits Authorized [id number] Authorized Auto-Generat ed Referral 11/16/2021 12/16/2022 1 1 [facility] for referral (narrative)* Diagnostic Procedure Only (Routine) - Closed Specialty Diagnoses / Procedures Referred By Darlineac t Referred To Contact US IMAGING Diagnoses Projectile vomiting with nausea Procedures US ABD RT UPPER QUADRANT US ABDOMINAL REAL TIME W/IMAGE LIMITED Faith William PA-C [address] [place] [address] Us Imaging Referral ID Status Reason Start Date Expiration Date V isits Requested Visits Authorized [id number] Closed Auto-Generate d Referral 11/16/2021 12/16/2022 1 1 [facility] for referral (narrative)* Outpatient Procedure (Routine) - Authorized Specialty Diagnoses / Procedures Referred By Contac t Referred To Contact [facility] Diagnoses Persistent atrial fibrillation (HCC) PVC's (premature ventricular contractions) Essential hypertension Mixed hyperlipidemia Procedures ECHO ECHO TTHRC R-T 2D W/WOM-MODE COMPL SPEC&COLR Rossy Ordonez DO [address] [place] [address] [facility] [address] [place] [id number] Referral ID Status Reason Start Date Expiration Date Visits Requested Visits Authorized [id number] Authorized Auto-Generat ed Referral 4 03/09/2025 1 1 [facility] for visit Narrative* Diagnostic Procedure Only (Routine) - Closed Specialty Diagnoses / Procedures Referred By Contac t Referred To Contact US IMAGING Diagnoses Mass of soft tissue of left upper extremity Procedures US EXTREMITY MASS/FLUID COLLECTION LEFT 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, 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, 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 [address] [place] [address] Us Imaging Referral ID Status Reason Start Date Expiration Date V isits Requested Visits Authorized [id number] Closed Auto-Generate d Referral 10/17/2022 11/16/2023 1 1 [facility] Diagnostic Procedure Only (Routine) - Closed Specialty Diagnoses / Procedures Referred By Suzanne t Referred To Contact XR IMAGING Diagnoses Deformity of toe of right foot Procedures XR FOOT GENERAL 3V AP/LAT/OBL RIGHT RADEX FOOT COMPLETE MINIMUM 3 VIEWS [address] [place] [address] [place] [address] Referral ID Status Reason Start Date Expiration Date V isits Requested Visits Authorized [id number] Closed Auto-Generate d Referral 04/25/2023 05/24/2024 1 1 [facility] Chief Complaint and Reason for Visit Chief Complaint n/v Advance Directives No Advanced Directives Records Found Advance Directive Response Recorded Date/ Time Living Will Yes June 11, 2021 12:23pm Power of Lockstitch Lining Maker Yes June 11 12:23pm Documents on File Type Date Recorded 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 Advance Directive(s) 01/08/2017 12:42 PM Advance Directive(s) 03/11/2015 1:09 PM Documents on File Type Date Recorded 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 Advance Directive(s) 01/08/2017 12:42 PM Advance Directive(s) 03/11/2015 1:09 PM Documents on File Type Date Recorded 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 Advance Directive(s) 03/11/2015 1:09 PM Documents on File Type Date Recorded 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 Advance Directive(s) 03/11/2015 1:09 PM Summary Purpose Family History No Family History Records FoundNo Family History Records FoundNo Family History Records FoundNo Family History Records FoundNo Family History Records Found Reason for Referral Specialty Diagnoses / Procedures Referred By Suzanne t Referred To Contact Gastroenterology Diagnoses Projectile vomiting with nausea New onset of headaches Procedures CONSULT TO GASTROENTEROLOGY OFFICE/OUTPATIENT NEW HIGH MDM 60-74 MINUTES Vanessa Her MD [address] [place] [address] Referral ID Status Reason Start Date Expiration Date Visits Requested Visits Authorized [id number] Authorized PCP Requested Referral 10/05/2021 10/05/2022 1 1 Specialty Diagnoses / Procedures Referred By Suzanne t Referred To Contact MR IMAGING Diagnoses Multiple and bilateral precerebral artery syndromes Procedures MRI BRAIN WO/W IVCON MRI BRAIN BRAIN STEM W/O W/CONTRAST MATERIAL Vanessa Her MD [address] [place] [address] Mr Imaging Referral ID Status Reason Start Date Expiration Date Visits Requested Visits Authorized [id number] Authorized Auto-Generat ed Referral 10/05/2021 11/04/2022 1 1 Referral ID Status Reason Start Date Expiration Date V isits Requested Visits Authorized [id number] Closed Auto-Generate d Referral 10/05/2021 11/04/2022 1 1 Specialty Diagnoses / Procedures Referred By Contac t Referred To Contact General Surgery Diagnoses Soft tissue mass Tenderness Procedures CONSULT TO GENERAL SURGERY OFFICE/OUTPATIENT NEW HIGH MDM 60-74 MINUTES Meagan Lambert APRN.DISHTANK OPERATOR [address] [place] [address] Referral ID Status Reason Start Date Expiration Date Visits Requested Visits Authorized [id number] Authorized PCP Requested Referral 11/05/2022 11/05/2023 1 1 Specialty Diagnoses / Procedures Referred By Contac t Referred To Contact Diagnoses Alzheimer's disease (HCC) Vanessa Her MD [address] [place] [address] Referral ID Status Reason Start Date Expiration Date Visits Re quested Visits Authorized [id number] Closed 1 1 Specialty Diagnoses / Procedures Referred By Contac t Referred To Contact Gerontology Diagnoses Alzheimer's disease (HCC) Procedures CONSULT TO GERIATRICS OFFICE/OUTPATIENT [facility] MDM 60 MINUTES Petra, MICHOACANO Rhodes.DISHTANK OPERATOR [address] [place] [address] Referral ID Status Reason Start Date Expiration Date V isits Requested Visits Authorized [id number] Closed PCP Requested Referral 10/24/2023 10/23/2024 1 1 Additional Source Comments Goals (unrecognized section and content) Goals may be documented in a n alternate section Source Comments (unrecognize d section and content) In the event this informatio n is protected by the Federal Confidentiality of Alcohol and Drug Abuse Patient Records regulations: The Federal rules restrict any use of the information to criminally investigate or prosecute any alcohol or drug abuse patient.[facility] event this information is protected by the Federal Confidentiality of Alcohol and Drug Abuse Patient Records regulations: The Federal rules restrict any use of the information to criminally investigate or prosecute any alcohol or drug abuse patient.[facility] event this information is protected by the Federal Confidentiality of Alcohol and Drug Abuse Patient Records regulations: The Federal rules restrict any use of the information to criminally investigate or prosecute any alcohol or drug abuse patient.[facility] event this information is protected by the Federal Confidentiality of Alcohol and Drug Abuse Patient Records regulations: The Federal rules restrict any use of the information to criminally investigate or prosecute any alcohol or drug abuse patient.[facility] event this information is protected by the Federal Confidentiality of Alcohol and Drug Abuse Patient Records regulations: The Federal rules restrict any use of the information to criminally investigate or prosecute any alcohol or drug abuse patient.[facility] the event this information is protected by the Federal Confidentiality of Alcohol and Drug Abuse Patient Records regulations: The Federal rules restrict any use of the information to criminally investigate or prosecute any alcohol or drug abuse patient.[facility] event this information is protected by the Federal Confidentiality of Alcohol and Drug Abuse Patient Records regulations: The Federal rules restrict any use of the information to criminally investigate or prosecute any alcohol or drug abuse patient.[facility] the event this information is protected by the Federal Confidentiality of Alcohol and Drug Abuse Patient Records regulations: The Federal rules restrict any use of the information to criminally investigate or prosecute any alcohol or drug abuse patient.[facility] the event this information is protected by the Federal Confidentiality of Alcohol and Drug Abuse Patient Records regulations: The Federal rules restrict any use of the information to criminally investigate or prosecute any alcohol or drug abuse patient.[facility] event this information is protected by the Federal Confidentiality of Alcohol and Drug Abuse Patient Records regulations: The Federal rules restrict any use of the information to criminally investigate or prosecute any alcohol or drug abuse patient.[facility] the event this information is protected by the Federal Confidentiality of Alcohol and Drug Abuse Patient Records regulations: The Federal rules restrict any use of the information to criminally investigate or prosecute any alcohol or drug abuse patient.[facility] event this information is protected by the Federal Confidentiality of Alcohol and Drug Abuse Patient Records regulations: The Federal rules restrict any use of the information to criminally investigate or prosecute any alcohol or drug abuse patient.[facility] the event this information is protected by the Federal Confidentiality of Alcohol and Drug Abuse Patient Records regulations: The Federal rules restrict any use of the information to criminally investigate or prosecute any alcohol or drug abuse patient.[facility] CenterIn the event this information is protected by the Federal Confidentiality of Alcohol and Drug Abuse Patient Records regulations: The Federal rules restrict any use of the information to criminally investigate or prosecute any alcohol or drug abuse patient.[facility] CenterIn the event this information is protected by the Federal Confidentiality of Alcohol and Drug Abuse Patient Records regulations: The Federal rules restrict any use of the information to criminally investigate or prosecute any alcohol or drug abuse patient.[facility] CenterIn the event this information is protected by the Federal Confidentiality of Alcohol and Drug Abuse Patient Records regulations: The Federal rules restrict any use of the information to criminally investigate or prosecute any alcohol or drug abuse patient.[facility] CenterIn the event this information is protected by the Federal Confidentiality of Alcohol and Drug Abuse Patient Records regulations: The Federal rules restrict any use of the information to criminally investigate or prosecute any alcohol or drug abuse patient.[facility] CenterIn the event this information is protected by the Federal Confidentiality of Alcohol and Drug Abuse Patient Records regulations: The Federal rules restrict any use of the information to criminally investigate or prosecute any alcohol or drug abuse patient.[facility] CenterIn the event this information is protected by the Federal Confidentiality of Alcohol and Drug Abuse Patient Records regulations: The Federal rules restrict any use of the information to criminally investigate or prosecute any alcohol or drug abuse patient.[facility] CenterIn the event this information is protected by the Federal Confidentiality of Alcohol and Drug Abuse Patient Records regulations: The Federal rules restrict any use of the information to criminally investigate or prosecute any alcohol or drug abuse patient.[facility] CenterIn the event this information is protected by the Federal Confidentiality of Alcohol and Drug Abuse Patient Records regulations: The Federal rules restrict any use of the information to criminally investigate or prosecute any alcohol or drug abuse patient.[facility] CenterIn the event this information is protected by the Federal Confidentiality of Alcohol and Drug Abuse Patient Records regulations: The Federal rules restrict any use of the information to criminally investigate or prosecute any alcohol or drug abuse patient.[facility] CenterIn the event this information is protected by the Federal Confidentiality of Alcohol and Drug Abuse Patient Records regulations: The Federal rules restrict any use of the information to criminally investigate or prosecute any alcohol or drug abuse patient.[facility] CenterIn the event this information is protected by the Federal Confidentiality of Alcohol and Drug Abuse Patient Records regulations: The Federal rules restrict any use of the information to criminally investigate or prosecute any alcohol or drug abuse patient.[facility] CenterIn the event this information is protected by the Federal Confidentiality of Alcohol and Drug Abuse Patient Records regulations: The Federal rules restrict any use of the information to criminally investigate or prosecute any alcohol or drug abuse patient.[facility] CenterIn the event this information is protected by the Federal Confidentiality of Alcohol and Drug Abuse Patient Records regulations: The Federal rules restrict any use of the information to criminally investigate or prosecute any alcohol or drug abuse patient.[facility] CenterIn the event this information is protected by the Federal Confidentiality of Alcohol and Drug Abuse Patient Records regulations: The Federal rules restrict any use of the information to criminally investigate or prosecute any alcohol or drug abuse patient.[facility] CenterIn the event this information is protected by the Federal Confidentiality of Alcohol and Drug Abuse Patient Records regulations: The Federal rules restrict any use of the information to criminally investigate or prosecute any alcohol or drug abuse patient.[facility] CenterIn the event this information is protected by the Federal Confidentiality of Alcohol and Drug Abuse Patient Records regulations: The Federal rules restrict any use of the information to criminally investigate or prosecute any alcohol or drug abuse patient.[facility] CenterIn the event this information is protected by the Federal Confidentiality of Alcohol and Drug Abuse Patient Records regulations: The Federal rules restrict any use of the information to criminally investigate or prosecute any alcohol or drug abuse patient.[facility] CenterIn the event this information is protected by the Federal Confidentiality of Alcohol and Drug Abuse Patient Records regulations: The Federal rules restrict any use of the information to criminally investigate or prosecute any alcohol or drug abuse patient.[facility] CenterIn the event this information is protected by the Federal Confidentiality of Alcohol and Drug Abuse Patient Records regulations: The Federal rules restrict any use of the information to criminally investigate or prosecute any alcohol or drug abuse patient.[facility] CenterIn the event this information is protected by the Federal Confidentiality of Alcohol and Drug Abuse Patient Records regulations: The Federal rules restrict any use of the information to criminally investigate or prosecute any alcohol or drug abuse patient.[facility] CenterIn the event this information is protected by the Federal Confidentiality of Alcohol and Drug Abuse Patient Records regulations: The Federal rules restrict any use of the information to criminally investigate or prosecute any alcohol or drug abuse patient.[facility] CenterIn the event this information is protected by the Federal Confidentiality of Alcohol and Drug Abuse Patient Records regulations: The Federal rules restrict any use of the information to criminally investigate or prosecute any alcohol or drug abuse patient.[facility] CenterIn the event this information is protected by the Federal Confidentiality of Alcohol and Drug Abuse Patient Records regulations: The Federal rules restrict any use of the information to criminally investigate or prosecute any alcohol or drug abuse patient.[facility] CenterIn the event this information is protected by the Federal Confidentiality of Alcohol and Drug Abuse Patient Records regulations: The Federal rules restrict any use of the information to criminally investigate or prosecute any alcohol or drug abuse patient.[facility] CenterIn the event this information is protected by the Federal Confidentiality of Alcohol and Drug Abuse Patient Records regulations: The Federal rules restrict any use of the information to criminally investigate or prosecute any alcohol or drug abuse patient.[facility] CenterIn the event this information is protected by the Federal Confidentiality of Alcohol and Drug Abuse Patient Records regulations: The Federal rules restrict any use of the information to criminally investigate or prosecute any alcohol or drug abuse patient.[facility] CenterIn the event this information is protected by the Federal Confidentiality of Alcohol and Drug Abuse Patient Records regulations: The Federal rules restrict any use of the information to criminally investigate or prosecute any alcohol or drug abuse patient.[facility] CenterIn the event this information is protected by the Federal Confidentiality of Alcohol and Drug Abuse Patient Records regulations: The Federal rules restrict any use of the information to criminally investigate or prosecute any alcohol or drug abuse patient.[facility] CenterIn the event this information is protected by the Federal Confidentiality of Alcohol and Drug Abuse Patient Records regulations: The Federal rules restrict any use of the information to criminally investigate or prosecute any alcohol or drug abuse patient.[facility] CenterIn the event this information is protected by the Federal Confidentiality of Alcohol and Drug Abuse Patient Records regulations: The Federal rules restrict any use of the information to criminally investigate or prosecute any alcohol or drug abuse patient.[facility] CenterIn the event this information is protected by the Federal Confidentiality of Alcohol and Drug Abuse Patient Records regulations: The Federal rules restrict any use of the information to criminally investigate or prosecute any alcohol or drug abuse patient.[facility] CenterIn the event this information is protected by the Federal Confidentiality of Alcohol and Drug Abuse Patient Records regulations: The Federal rules restrict any use of the information to criminally investigate or prosecute any alcohol or drug abuse patient.[facility] CenterIn the event this information is protected by the Federal Confidentiality of Alcohol and Drug Abuse Patient Records regulations: The Federal rules restrict any use of the information to criminally investigate or prosecute any alcohol or drug abuse patient.[facility] CenterIn the event this information is protected by the Federal Confidentiality of Alcohol and Drug Abuse Patient Records regulations: The Federal rules restrict any use of the information to criminally investigate or prosecute any alcohol or drug abuse patient.[facility] CenterIn the event this information is protected by the Federal Confidentiality of Alcohol and Drug Abuse Patient Records regulations: The Federal rules restrict any use of the information to criminally investigate or prosecute any alcohol or drug abuse patient.[facility] CenterIn the event this information is protected by the Federal Confidentiality of Alcohol and Drug Abuse Patient Records regulations: The Federal rules restrict any use of the information to criminally investigate or prosecute any alcohol or drug abuse patient.[facility] CenterIn the event this information is protected by the Federal Confidentiality of Alcohol and Drug Abuse Patient Records regulations: The Federal rules restrict any use of the information to criminally investigate or prosecute any alcohol or drug abuse patient.[facility] CenterIn the event this information is protected by the Federal Confidentiality of Alcohol and Drug Abuse Patient Records regulations: The Federal rules restrict any use of the information to criminally investigate or prosecute any alcohol or drug abuse patient.[facility] CenterIn the event this information is protected by the Federal Confidentiality of Alcohol and Drug Abuse Patient Records regulations: The Federal rules restrict any use of the information to criminally investigate or prosecute any alcohol or drug abuse patient.[facility] CenterIn the event this information is protected by the Federal Confidentiality of Alcohol and Drug Abuse Patient Records regulations: The Federal rules restrict any use of the information to criminally investigate or prosecute any alcohol or drug abuse patient.[facility] CenterIn the event this information is protected by the Federal Confidentiality of Alcohol and Drug Abuse Patient Records regulations: The Federal rules restrict any use of the information to criminally investigate or prosecute any alcohol or drug abuse patient.[facility] CenterIn the event this information is protected by the Federal Confidentiality of Alcohol and Drug Abuse Patient Records regulations: The Federal rules restrict any use of the information to criminally investigate or prosecute any alcohol or drug abuse patient.[facility] CenterIn the event this information is protected by the Federal Confidentiality of Alcohol and Drug Abuse Patient Records regulations: The Federal rules restrict any use of the information to criminally investigate or prosecute any alcohol or drug abuse patient.[facility] CenterIn the event this information is protected by the Federal Confidentiality of Alcohol and Drug Abuse Patient Records regulations: The Federal rules restrict any use of the information to criminally investigate or prosecute any alcohol or drug abuse patient.[facility] CenterIn the event this information is protected by the Federal Confidentiality of Alcohol and Drug Abuse Patient Records regulations: The Federal rules restrict any use of the information to criminally investigate or prosecute any alcohol or drug abuse patient.[facility] CenterIn the event this information is protected by the Federal Confidentiality of Alcohol and Drug Abuse Patient Records regulations: The Federal rules restrict any use of the information to criminally investigate or prosecute any alcohol or drug abuse patient.[facility] CenterIn the event this information is protected by the Federal Confidentiality of Alcohol and Drug Abuse Patient Records regulations: The Federal rules restrict any use of the information to criminally investigate or prosecute any alcohol or drug abuse patient.[facility] CenterIn the event this information is protected by the Federal Confidentiality of Alcohol and Drug Abuse Patient Records regulations: The Federal rules restrict any use of the information to criminally investigate or prosecute any alcohol or drug abuse patient.[facility] Reason for Visit (unrecogniz ed section and content) Reason Comments Physical Therapy Specialty Diagnoses / Procedures Referred By Suzanne t Referred To Contact [facility] Diagnoses Chronic pain of left knee Chronic knee instability, left Procedures CONSULT TO PHYSICAL THERAPY PHYSICAL THERAPY EVALUATION HIGH COMPLEX 45 MINS Older, MICHOACANO Rhodes.DISHTANK OPERATOR [address] [place] [address] [facility] [address] [place] [address] Referral ID Status Reason Start Date Expiration Date Visits Requested Visits Authorized [id number] Authorized PCP Requested Referral Auto-Generate d Referral 04/22/2023 04/21/2024 99 99 Reason Comments PT Progress Note Reason Onset Date Comments Refill Request 06/28/2021 Reason Onset Date Comments Refill Request 06/29/2021 Reason Comments Follow Up Tests Results Reason Onset Date Comments Refill Request 09/24/2021 Reason Comments F/U 6 months Specialty Diagnoses / Procedures Referred By Contac t Referred To Contact MR IMAGING Diagnoses Multiple and bilateral precerebral artery syndromes Procedures MRI BRAIN WO/W IVCON MRI BRAIN BRAIN STEM W/O W/CONTRAST MATERIAL Vanessa Her MD [address] [place] [address] Mr Imaging Referral ID Status Reason Start Date Expiration Date V isits Requested Visits Authorized [id number] Closed Auto-Generate d Referral 10/05/2021 11/04/2022 1 1 Reason Onset Date Comments Refill Request 11/06/2021 Reason Comments Nausea & Vomiting Specialty Diagnoses / Procedures Referred By Contac t Referred To Contact Gastroenterology Diagnoses Projectile vomiting with nausea New onset of headaches Procedures CONSULT TO GASTROENTEROLOGY OFFICE/OUTPATIENT NEW HIGH MDM 60-74 MINUTES Vanessa Her MD [address] [place] [address] Referral ID Status Reason Start Date Expiration Date V isits Requested Visits Authorized [id number] Closed PCP Requested Referral 10/05/2021 10/05/2022 1 1 Reason Comments Radiology US Specialty Diagnoses / Procedures Referred By Contac t Referred To Contact US IMAGING Diagnoses Projectile vomiting with nausea Procedures US ABD RT UPPER QUADRANT US ABDOMINAL REAL TIME W/IMAGE LIMITED Faith William PA-C [address] [facility] [place] [address] Us Imaging Referral ID Status Reason Start Date Expiration Date V isits Requested Visits Authorized [id number] Closed Auto-Generate d Referral 11/16/2021 12/16/2022 1 1 Reason Onset Date Comments Refill Request 12/27/2021 Reason Onset Date Comments Refill Request 03/27/2022 Reason Comments Consult Cyst on back Specialty Diagnoses / Procedures Referred By Contac t Referred To Contact General Surgery Diagnoses Skin cyst Procedures CONSULT TO GENERAL SURGERY OFFICE/OUTPATIENT [facility] MDM 60-74 MINUTES Older, Meagan, 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 [address] [place] [address] Referral ID Status Reason Start Date Expiration Date V isits Requested Visits Authorized [id number] Closed PCP Requested Referral 07/09/2022 07/09/2023 1 1 Reason Comments Insurance Authorization Reason Comments Procedure Cyst removal of back Reason Comments Results Reason Comments Refill Request Reason Onset Date Comments Refill Request 10/09/2022 Reason Comments Results Reason Comments Consult Soft tissue mass Lef t upper arm Specialty Diagnoses / Procedures Referred By Contac t Referred To Contact General Surgery Diagnoses Soft tissue mass Tenderness Procedures CONSULT TO GENERAL SURGERY OFFICE/OUTPATIENT [facility] 60-74 MINUTES Older, Meagan, 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 [address] [place] [address] Referral ID Status Reason Start Date Expiration Date V isits Requested Visits Authorized [id number] Closed PCP Requested Referral 11/05/2022 11/05/2023 1 1 Reason Comments Procedure Excision of uncertai n subcutaneous lesion left arm Reason Comments Established Patient Follow-Up Overdue elizabet espinozaEKG completed today Room 1No current cardiac concerns Reason Comments Covid19 Concern + rapid x this AM, c ough, ST, MARTINEZ, congestion x1 day Reason Comments PT Eval Reason Comments New Patient Pain Specialty Diagnoses / Procedures Referred By Contac t Referred To Contact Podiatry Diagnoses Deformity of toe of right foot Pain of toe of right foot Procedures CONSULT TO PODIATRY OFFICE/OUTPATIENT [facility] MDM 60 MINUTES Older, Meagan, 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 [address] [place] [address] Referral ID Status Reason Start Date Expiration Date V isits Requested Visits Authorized [id number] Closed PCP Requested Referral 04/22/2023 04/21/2024 1 1 Reason Onset Date Comments Refill Request 10/01/2023 Reason Comments Recheck 6 month follow up Reason Comments Consult Specialty Diagnoses / Procedures Referred By Contac t Referred To Contact Gerontology Diagnoses Alzheimer's disease (HCC) Procedures CONSULT TO GERIATRICS OFFICE/OUTPATIENT NEW HIGH MDM 60 MINUTES Older, MICHOACANO Rhodes.DISHTANK OPERATOR [address] [place] [address] Referral ID Status Reason Start Date Expiration Date V isits Requested Visits Authorized [id number] Closed PCP Requested Referral 10/24/2023 10/23/2024 1 1 Reason Comments Orders Geriatric consult Reason Comments Follow Up Reason Comments CARD Follow Up Annual RM 10 No concerns Reason Onset Date Comments Refill Request 04/05/2024 Reason Onset Date Comments Refill Request 05/26/2024 Reason Comments CARD Follow Up 3 Month ECHO 04/09/24No ne w cardiac concerns Reason Onset Date Comments Population Health Navigation Outreach 09/14/2024 [facility] Reason Comments Medicare Wellness Exam Reason Comments Reason Comments Goals of Care Reason Comments Initial Consult [facility] [id number] Reason Onset Date Comments Transition Of Care 11/27/2024 Chart review Care Teams (unrecognized sec tion and content) Gold Burnisher Relationship Specialty Start Date End Date Vanessa Her MD [address] [place] [address] PCP - General Internal Medicine 07/30/16 Gold Burnisher Relationship Specialty Start Date End Date Vanessa Her MD [address] [place] [address] PCP - General Internal Medicine 07/30/16 Gold Burnisher Relationship Specialty Start Date End Date Vanessa Her MD [address] [place] [address] PCP - General Internal Medicine 07/30/16 Gold Burnisher Relationship Specialty Start Date End Date Vanessa Her MD [address] [place] [address] PCP - General Internal Medicine 07/30/16 Gold Burnisher Relationship Specialty Start Date End Date Vanessa Her MD [address] [place] [address] PCP - General Internal Medicine 07/30/16 Gold Burnisher Relationship Specialty Start Date End Date Vanessa Her MD [address] [place] [address] PCP - General Internal Medicine 07/30/16 Gold Burnisher Relationship Specialty Start Date End Date Vanessa Her MD [address] [place] [address] PCP - General Internal Medicine 07/30/16 Gold Burnisher Relationship Specialty Start Date End Date Vanessa Her MD [address] [place] [address] PCP - General Internal Medicine 07/30/16 Gold Burnisher Relationship Specialty Start Date End Date Vanessa Her MD [address] [place] [address] PCP - General Internal Medicine 07/30/16 Gold Burnisher Relationship Specialty Start Date End Date Vanessa Her MD [address] [place] [address] PCP - General Internal Medicine 07/30/16 Gold Burnisher Relationship Specialty Start Date End Date Vanessa Her MD [address] [place] [address] PCP - General Internal Medicine 07/30/16 Gold Burnisher Relationship Specialty Start Date End Date Vanessa Her MD [address] [place] [address] PCP - General Internal Medicine 07/30/16 Gold Burnisher Relationship Specialty Start Date End Date Vanessa Her MD [address] [place] [address] PCP - General Internal Medicine 07/30/16 Gold Burnisher Relationship Specialty Start Date End Date Vanessa Her MD [address] [place] [address] PCP - General Internal Medicine 07/30/16 Gold Burnisher Relationship Specialty Start Date End Date Vanessa Her MD [address] [place] [address] PCP - General Internal Medicine 07/30/16 Gold Burnisher Relationship Specialty Start Date End Date Vanessa Her MD [address] [place] [address] PCP - General Internal Medicine 07/30/16 Gold Burnisher Relationship Specialty Start Date End Date Vanessa Her MD [address] [place] [address] PCP - General Internal Medicine 07/30/16 Gold Burnisher Relationship Specialty Start Date End Date Vanessa Her MD [address] [place] [address] PCP - General Internal Medicine 07/30/16 Gold Burnisher Relationship Specialty Start Date End Date Vanessa Her MD [address] [place] [address] PCP - General Internal Medicine 07/30/16 Gold Burnisher Relationship Specialty Start Date End Date Vanessa Her MD [address] [place] [address] PCP - General Internal Medicine 07/30/16 Gold Burnisher Relationship Specialty Start Date End Date Vanessa Her MD [address] [place] [address] PCP - General Internal Medicine 07/30/16 Gold Burnisher Relationship Specialty Start Date End Date Vanessa Her MD [address] [place] [address] PCP - General Internal Medicine 07/30/16 Gold Burnisher Relationship Specialty Start Date End Date Vanessa Her MD [address] [place] [address] PCP - General Internal Medicine 07/30/16 Gold Burnisher Relationship Specialty Start Date End Date Vanessa Her MD [address] [place] [address] PCP - General Internal Medicine 07/30/16 Gold Burnisher Relationship Specialty Start Date End Date Vanessa Her MD [address] [place] [address] PCP - General Internal Medicine 07/30/16 Gold Burnisher Relationship Specialty Start Date End Date Vanessa Her MD [address] [place] [address] PCP - General Internal Medicine 07/30/16 Gold Burnisher Relationship Specialty Start Date End Date Vanessa Her MD [address] [place] [address] PCP - General Internal Medicine 07/30/16 Gold Burnisher Relationship Specialty Start Date End Date Vanessa Her MD [address] [place] [address] PCP - General Internal Medicine 07/30/16 Gold Burnisher Relationship Specialty Start Date End Date Vanessa Her MD [address] [place] [address] PCP - General Internal Medicine 07/30/16 Gold Burnisher Relationship Specialty Start Date End Date Vanessa Her MD [address] [place] [address] PCP - General Internal Medicine 07/30/16 Gold Burnisher Relationship Specialty Start Date End Date Vanessa Her MD [address] [place] [address] PCP - General Internal Medicine 07/30/16 Kinga Reyes PA-C [address] [place] [address] Safety And Security Manager Family Medicine 03/01/24 Meagan Lambert APRN.DISHTANK OPERATOR [address] [place] [address] Safety And Security Manager Internal Medicine 03/01/24 Gaby Cisse PA-C [address] [place] [address] Safety And Security Manager Family Medicine 03/01/24 Gold Burnisher Relationship Specialty Start Date End Date Vanessa Her MD [address] [place] [address] PCP - General Internal Medicine 07/30/16 Kinga Reyes PA-C [address] [place] [id number] Safety And Security Manager Family Medicine 03/01/24 Meagan Lambert APRN.DISHTANK OPERATOR [address] [place] [address] Safety And Security Manager Internal Medicine 03/01/24 Gaby Cisse PA-C [address] [place] [address] Safety And Security Manager Family Medicine 03/01/24 Gold Burnisher Relationship Specialty Start Date End Date Vanessa Her MD [address] [place] [address] PCP - General Internal Medicine 07/30/16 Kinga Reyes PA-C [address] [place] [address] Safety And Security Manager Family Medicine 03/01/24 Meagan Lambert APRN.DISHTANK OPERATOR [address] [place] [address] Safety And Security Manager Internal Medicine 03/01/24 Gaby Cisse PA-C [address] [place] [address] Safety And Security Manager Family Medicine 03/01/24 Gold Burnisher Relationship Specialty Start Date End Date Vanessa Her MD [address] [place] [address] PCP - General Internal Medicine 07/30/16 Kinga Reyes PA-C [address] [place] [address] Safety And Security Manager Family Medicine 03/01/24 Meagan Lambert, 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 [address] [place] [address] Safety And Security Manager Internal Medicine 03/01/24 Gaby Cisse PA-C [address] [place] [address] Safety And Security Manager Family Medicine 03/01/24 Gold Burnisher Relationship Specialty Start Date End Date Vanessa Her MD [address] [place] [address] PCP - General Internal Medicine 07/30/16 Kinga Reyes PA-C [address] [place] [address] Safety And Security Manager Family Medicine 03/01/24 Meagan Lambert APRN.DISHTANK OPERATOR [address] [place] [address] Safety And Security Manager Internal Medicine 03/01/24 Gaby Cisse PA-C [address] [place] [address] Safety And Security Manager Family Medicine 03/01/24 Gold Burnisher Relationship Specialty Start Date End Date Vanessa Her MD [address] [place] [address] PCP - General Internal Medicine 07/30/16 Kinga Reyes PA-C [address] [place] [address] Safety And Security Manager Family Medicine 03/01/24 06/14/24 Meagan Lambert APRN.DISHTANK OPERATOR [address] [place] [address] Safety And Security Manager Internal Medicine 03/01/24 Gaby Cisse PA-C [address] [place] [address] Safety And Security Manager Family Medicine 03/01/24 06/14/24 Gold Burnisher Relationship Specialty Start Date End Date Vanessa Her MD [address] [place] [address] PCP - General Internal Medicine 07/30/16 Kinga Reyes PA-C [address] [place] [address] Safety And Security Manager Family Medicine 03/01/24 06/14/24 Meagan Lambert APRN.DISHTANK OPERATOR [address] [place] [address] Safety And Security Manager Internal Medicine 03/01/24 Gaby Cisse PA-C [address] [place] [address] Safety And Security Manager Family Medicine 03/01/24 06/14/24 Gold Burnisher Relationship Specialty Start Date End Date Vanessa Her MD [address] [place] [address] PCP - General Internal Medicine 07/30/16 Meagan Lambert APRN.DISHTANK OPERATOR [address] [place] [address] Safety And Security Manager Internal Medicine 03/01/24 Gold Burnisher Relationship Specialty Start Date End Date Vanessa Her MD [address] [place] [address] PCP - General Internal Medicine 07/30/16 Meagan Lambert APRN.DISHTANK OPERATOR [address] [place] [address] Safety And Security Manager Internal Medicine 03/01/24 Gold Burnisher Relationship Specialty Start Date End Date Vanessa Her MD [address] [place] [address] PCP - General Internal Medicine 07/30/16 Meagan Lambert, 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 [address] [place] [address] Safety And Security Manager Internal Medicine 03/01/24 Gold Burnisher Relationship Specialty Start Date End Date Vanessa Her MD [address] [place] [address] PCP - General Internal Medicine 07/30/16 Meagan Lambert, 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 [address] [place] [address] Safety And Security Manager Internal Medicine 03/01/24 Gold Burnisher Relationship Specialty Start Date End Date Vanessa Her MD [address] [place] [address] PCP - General Internal Medicine 07/30/16 Meagan Lambert, 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 [address] [place] [address] Safety And Security Manager Internal Medicine 03/01/24 Gold Burnisher Relationship Specialty Start Date End Date Vanessa Her MD [address] [place] [address] PCP - General Internal Medicine 07/30/16 Meagan Lambert, 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 [address] [place] [address] Safety And Security Manager Internal Medicine 03/01/24 Roly Wilks, RN Specialty Heat Sealing Machine Operator Hospice & Palliative Medicine 10/23/24 Gold Burnisher Relationship Specialty Start Date End Date Vanessa Her MD [address] [place] [address] PCP - General Internal Medicine 07/30/16 Meagan Lambert APRN.DISHTANK OPERATOR [address] [place] [address] Safety And Security Manager Internal Medicine 03/01/24 Roly Wilks RN Specialty Heat Sealing Machine Operator Hospice & Palliative Medicine 10/23/24 INFORMATION SOURCE (unrecogn ized section and content) DATE CREATED AUTHOR 07/12/2021 [facility] DATE CREATED AUTHOR AUTHOR'S ORGANIZ ATION 10/22/2022 [facility] DATE CREATED AUTHOR AUTHOR'S ORGANIZ ATION 03/13/2023 [facility] DATE CREATED AUTHOR AUTHOR'S ORGANIZ ATION 12/17/2023 [facility] DATE CREATED AUTHOR AUTHOR'S ORGANIZ ATION 01/03/2025 [facility] FOR RECORDS PERTAINING TO PATIENTS WHO ARE OR HAVE BEEN ENROLLED IN A CHEMICAL DEPENDENCY/SUBSTANCEABUSE PROGRAM, SOME INFORMATION MAY BE OMITTED. This clinical summary was aggregated from multiple sources. Caution should be exercised in using it in the provision of clinical care. This summary normalizes information from multiple sources, and as a consequence, information in this document may materially change the coding, format and clinical context of patient data. In addition, data may be omitted in some cases. CLINICAL DECISIONS SHOULD BE BASED ON THE PRIMARY CLINICAL RECORDS. [facility] [employer] [facility]. provides no warranty or guarantee of the accuracy or completeness of information in this document.
[2025-02-27 12:53] LABS: Hematocrit 40.0 % (37-47); Hemoglobin 13.3 g/dL (12.0-15.0); Immature Granulocytes Count 0.030 X10^3/uL (0.0-0.0); Mean Corp Hgb Conc 33.3 g/dL (32-36); Mean Corpuscular Volume 92.4 fL (81-99); Mean Platelet Vol. 10.8 fl (6.2-12.0); NRBC Flagged by Analyzer 0 % (0-5); Platelet Count 237 K/mm3 (150-450); RBC Distribution Width CV 15.6 % (11.6-14.6); RBC Distribution Width SD 52.6 fl (35.1-43.9); Red Blood Count 4.33 M/mm3 (4.2-5.4); White Blood Count 7.5 K/mm3 (4.4-11.0)
[2025-02-27 13:17] LABS: Mucous, Urine 0 SEEN /hpf (<or=2+); Red Blood Cells-Urine 0 SEEN /hpf (0-5)
[2025-02-27 13:21] LABS: Color, Urine Brown (Yellow); Glucose, Dipstick Normal (Normal); Ketone-Dipstick Negative (Negative); Leukocyte Esterase-Dipstick 25 /ul (Negative); Nitrite-Dipstick Positive (Negative); Occult Blood-Urine 150 /ul (Negative); Protein-Dipstick 30 mg/dl (Negative); Specific Gravity, Urine 1.030 (1.002-1.030)
[2025-02-27 13:24] LABS: AST(SGOT) 100 U/L (<=31); Alanine Aminotransfer ALT/SGPT 53 U/L (<=34); Albumin, Serum 4.5 g/dL (3.4-4.8); Alkaline Phosphatase 59 U/L (35-104); Anion Gap 14 (5-15); BUN 29 mg/dL (4-19); BUN/Creat Ratio 20.0 RATIO (10-20); Calcium,Total 10.9 mg/dL (7.6-11.0); Carbon Dioxide 24.4 mmol/L (21.0-32.0); Chloride 102 mmol/L (98-108); Estimated Creatinine Clearance 32.07 ml/min (50-250); Globulin 2.7 g/dL (2.2-4.2); Glucose 88 mg/dL (70-99); Potassium 3.3 mmol/L (3.3-5.1)
[2025-02-27 13:32] LABS: Squamous Epithelial Cells - UA 0-5 SEEN /hpf (5-10); Urine Bilirubin Dipstick 1 mg/dL (Negative)
--- NOTE | 2025-02-27 14:48 | ED.RN ---
PT. INFORMED THIS NURSE THAT HE WOULD LIKE HIS ADMITTED FOR PLACEMENT INTO A CARE FACILITY DUE TO DECLINE IN ADL'S, FREQUENT FALLS, AND DECLINE IN ABILITY TO AMBULATE AT HOME. EXPRESSED, I HAVE A HARD TIME TAKING CARE OF HER AT HOME AT THIS POINT. PRIMARY PROVIDER NOTIFIED AT THIS TIME.
--- NOTE | 2025-02-27 15:22 | EDS_ITS ---
HPI HPI - Fall History of Present Illness Chief Complaint: Fall Informant: patient, spouse/S.O. and EMS Limited: dementia Narrative Narrative: Patient is an 84-year-old female with a history of dementia presenting to the ED after two falls in the past two days. Patient is accompanied by her , who is providing history on her behalf. - Patient has been experiencing progressive weakness and fatigue, sleeping approximately 18 hours a day, which is a change from her previous pattern of 6-7 hours per night. - Yesterday, she fell out of bed while both she and her were in bed; today, she fell while sitting on the edge of the bed and fell asleep, resulting in her finding her on the floor presumably a short time later. - did not witness today's fall but reports no apparent injuries; however, she has been complaining of back pain for the past 3-4 days. - Denies increased somnolence over the past few days. - Denies emesis; reports normal urination and bowel movements. - notes new behavior of rubbing her hands on occasion. - Patient has a DNR in place per . He has already looked into getting her into assisted living/dementia unit, he says that he is already in process and they were telling him hopefully they will have a bed for her by [place] which is about 2.5 weeks away. [facility] Medical History Kidney disease Hypertension Dementia Home Medications ?Medication ?Instructions ?Recorded ?Last Taken ?Type metoprolol succinate 50 mg 25 mg PO DAILY 12/10/16 History tablet,extended release 24 hr (Toprol XL) amlodipine 2.5 mg tablet mg 02/27/25 Unknown History apixaban 5 mg tablet (Eliquis) mg 02/27/25 Unknown His tory citalopram 10 mg tablet mg 02/27/25 Unknown History famotidine 40 mg tablet mg 02/27/25 Unknown History ferrous gluconate 225 mg (27 mg mg PO 02/27/25 Unknown History iron) tablet (Fergon) memantine 5 mg tablet mg 02/27/25 Unknown History pravastatin 20 mg tablet mg 02/27/25 Unknown History Allergy/AdvReac Type Severity Reaction Status Date / Time estrogens, conjugated (From Allergy Itching Verified 02/27/25 11:47 Premarin) medroxyprogesterone Allergy Unknown Verified 02/27/25 11:47 nitrofurantoin (From Allergy Itching Verified 02/27/25 11:47 Furadantin) sulfamethoxazole (From Allergy Swelling Verified 02/27/25 11:47 Bactrim) trimethoprim (From Bactrim) Allergy Swelling Verified 02/27/25 11:47 Social History Smoking Status: Former smoker ROS ROS ED Review of Systems ROS Unobtainable: other Details: impossible due to dementia EXAM Physical Exam Const Vital Signs: 02/27/25 11:41 02/27/25 11:41 02/27/25 12:38 Temperature 98 F Temperature Source Temporal Pulse Rate 93 Respiratory Rate 14 Respiratory Effort Normal Respiratory Depth Normal Respiratory Pattern Normal Blood Pressure 143/105 H 148/91 H Blood Pressure Mean 117 110 Pulse Ox 100 Oxygen Delivery Method Room Air Room Air 02/27/25 12:45 02/27/25 12:50 02/27/25 12:52 Temperature Temperature Source Pulse Rate 77 Respiratory Rate 15 Respiratory Effort Normal Respiratory Depth Respiratory Pattern Normal Blood Pressure 144/69 H 144/69 H Blood Pressure Mean 90 94 Pulse Ox 96 Oxygen Delivery Method Room Air 02/27/25 13:30 02/27/25 15:00 Temperature Temperature Source Pulse Rate 94 74 Respiratory Rate 14 Respiratory Effort Respiratory Depth Respiratory Pattern Blood Pressure 142/122 H Blood Pressure Mean 130 Pulse Ox 96 99 Oxygen Delivery Method Room Air Room Air Positive well nourished and well developed General Appearance ED: well developed and NAD HEENT Reports TM's clear and moist mucous membranes HEENT Narrative: No Flores sign, no raccoon eyes, no CSF otorhinorrhea, no hemotympanum. normocephalic and atraumatic Tympanic Membrane ED: Yes TM's clear Eyes PERRL and EOMs intact bilaterally Neck full ROM and supple Resp normal respiratory effort and clear to auscultation bilaterally Cardio regular rate and regular rhythm Rate: Negative for tachycardic GI non-tender and non-distended Auscultation: normoactive bowel sounds Palpation: soft Back/Spine General Back: CVA tenderness left (nml on inspection, no rash) Extremity normal to inspection General Extremety ED: Negative for edema, pulses abnormal or tenderness General Extremity: Negative for edema or pulses abnormal Neuro CN's II-XII intact bilaterally and no sensory deficits noted Neuro Narrative: No gross motor or sensory deficits. At baseline mental status per has a recently last couple months. Sensorium / Orientation: awake, alert, orientation impaired and confused Skin no rashes or lesions noted and no wounds MDM MDM MDM Narrative Medical decision making narrative: Assessment: The patient is a 84-year-old female with PMH of dementia and prior left renal calculus, presenting for generalized weakness with two recent unwitnessed/witnessed falls and several days of left-sided back pain. CT head is unremarkable, excluding acute intracranial injury. One-view chest X-ray is normal, making thoracic trauma or acute pulmonary process unlikely. CT abdomen/pelvis shows no obstructive uropathy or pyelonephritis; incidental diverticulosis and bilateral adrenal hyperplasia noted without acute findings. UA shows nitrites and 1+ bacteria but lacks pyuria, lowering concern for acute UTI. Mild hyperbilirubinemia (1.56) and slight azotemia (Cr 1.44, BUN 29) are mo st consistent with mild dehydration contributing to her weakness. Overall, no emergent injury identified; fall likely multifactorial with baseline dementia and dehydration. Plan: - Maintenance IV fluids given in ED for dehydration - Offered analgesia for back pain as needed - Sent urine for culture despite low suspicion for acute UTI - Discussed results and lack of acute findings with ; no medical admission required - Consulted social work per request to explore expedited placement to dementia unit - DNR status confirmed with ; ventilatory support acceptable if required Diagnostics: - CT head: unremarkable. Independently interpreted by Samuel florian - One-view chest X-ray: normal. Independently interpreted by Samuel florian - CT abdomen/pelvis: no obstructive uropathy or pyelonephritis; diverticulosis without diverticulitis; bilateral adrenal hyperplasia (new right, unchanged left). Independently interpreted by Samuel florian - UA: nitrite positive, 1+ bacteria, no pyuria - Labs: total bilirubin 1.56 mg/dL; creatinine 1.44 mg/dL; BUN 29 mg/dL Consultations: - Social work consulted; assisting with dementia unit placement options Case management met with the patient and , it seems that it may be longer before placement is going to happen, at this time the prefers to take care of her at home and has some other solutions planned we discussed reasons to return there comfortable with that plan Portions of this note were generated using voice recognition software ([employer] Dict[employer]). I have reviewed the contents and every effort has been made to ensure accuracy; however, inadvertent errors in grammar, spelling, punctuation, or word choice may occur, that were not noted before signing the document and should not alter the intended clinical meaning. History & Record Review Additional record(s) reviewed:: Prior labs Lab Data Attestation: I reviewed the patient's lab results. Labs: Laboratory Results - last 24 hr 02/27/25 02/27/25 12:41 13:11 WBC 7.5 RBC 4.33 Hgb 13.3 Hct 40.0 MCV 92.4 MCH 30.7 MCHC 33.3 RDW Std Deviation 52.6 H RDW Coeff of Isa 15.6 H Plt Count 237 MPV 10.8 Immature Gran % (Auto) 0.400 Neut % (Auto) 76.1 H Lymph % (Auto) 15.7 L Dewey % (Auto) 6.4 Eos % (Auto) 0.7 Baso % (Auto) 0.7 Absolute Neuts (auto) 5.7 Absolute Lymphs (auto) 1.18 Nucleated RBC % 0 Sodium 140 Potassium 3.3 Chloride 102 Carbon Dioxide 24.4 Anion Gap 14 BUN 29 H Creatinine 1.44 H Estim Creat Clear Calc 32.07 L Est GFR (MDRD) Non-Af 36 L BUN/Creatinine Ratio 20.0 Glucose 88 Lactic Acid 1.1 Calcium 10.9 Total Bilirubin 1.56 H AST 100 H ALT 53 H Alkaline Phosphatase 59 Total Protein 7.2 Albumin 4.5 Globulin 2.7 Albumin/Globulin Ratio 1.7 Urine Color Brown Urine Clarity Sl. Cloudy Urine pH 5.0 Ur Specific [place] 1.030 Urine Protein 30 H Urine Glucose (UA) Normal Urine Ketones Negative Urine Occult Blood 150 H Urine Nitrite Positive H Urine Bilirubin 1 H Urine Urobilinogen 1 H Ur Leukocyte Esterase 25 H Urine RBC 0 SEEN Urine WBC 0-5 SEEN Ur Squamous Epith Cells 0-5 SEEN Urine Bacteria 1+ Urine Mucus 0 SEEN Radiography Diagnostic Testing: Clinical Impression(s) from Imaging Studies Brain CT 02/27/25 12:26 IMPRESSION: 1. No intracranial hemorrhage. No mass effect or midline shift. 2. Chronic involutional and ischemic gliotic white matter changes. Reading [facility] Chest X-Ray 02/27/25 12:26 IMPRESSION: No Acute Findings. Reading Location: [id number] Abdomen/Pelvis CT 02/27/25 12:27 IMPRESSION: 1. No urolithiasis or signs of urinary tract obstruction. 2. Colonic diverticulosis without signs of diverticulitis. 3. Nonspecific adrenal hyperplasia bilaterally, unchanged on the left and new on the right. Reading Location: [facility] Rhythm Strip Rhythm Strip: A-fib Rate: 70 Ectopy: None EKG Initial EKG: Attestation: I personally reviewed and interpreted this EKG as follows: Interpretation: No Acute Injury Pattern and Atrial Fibrillation Prior: Changed (2021 nsr) Management Discussion w/another healthcare provider: church worker/Case management Discharge Plan Triage Chief Complaint: Fall ED Provider: Samuel Parrish Dx/Rx/DC Orders Clinical Impression: Unspecified fall, Dementia without behavioral disturbance, Dehydration, Diverticulosis of large intestine without diverticulitis, Debility Instructions: Dementia Safety Tips for Caregivers, Dehydration Prescriptions: No Action metoprolol succinate [Toprol XL] 50 MG tablet extended release 24 hr 25 mg PO DAILY citalopram 10 mg tablet Patient Comments: [NO ORIGINAL SIG] famotidine 40 mg tablet Patient Comments: [NO ORIGINAL SIG] amlodipine 2.5 mg tablet Patient Comments: [NO ORIGINAL SIG] pravastatin 20 mg tablet Patient Comments: [NO ORIGINAL SIG] memantine 5 mg tablet Patient Comments: [NO ORIGINAL SIG] Fergon 225 mg (27 mg iron) tablet PO Eliquis 5 mg tablet Patient Comments: [NO ORIGINAL SIG] Primary Care Provider: Yaneth Bernal Referrals: Yaneth Bernal MD [Primary Care Provider, Internal Medicine] Activity Restrictions/Additional Instructions: She was a little dehydrated, encourage fluids when she is awake. Print Language: Hebrew Disposition Disposition: Home, Self Care
--- NOTE | 2025-02-27 16:09 | CM.ED ---
Social Work Date of referral: 02/27/25 Reason for referral: Discharge Planning assistance needed. Referred by: ED Physician Patient was not oriented at the time of the visit however patient's provided consent to social work visit. Patient's stated he has early onset Alzheimer's and has difficulty remembering certain things himself. Patient's stated he is in the process of getting patient into [id number] at [facility]. (SNF) Mr. Jackson stated the SNF has to talk with him as well as patient one more time and gave a possible time-frame for placement as 3-4 weeks out. Mr. Bautista stated he feels able to manage with patient at home until then without a need for admission. Mr. Bautista stated he is still able to drive, patient has a wheelchair that Mr. Bautista can use when out in the community since patient is not able to walk long distances. Mr. Bautista stated it has been harder taking patient on errands however has a brother who can come to the house and stay with patient while Mr. Bautista goes to his own doctor's appointments or to the grocery store. Mr. Bautista stated he is also going to try grocery delivery through [employer] and see how that goes. Mr. Bautista stated patient has rolled out of the bed twice now however is going to have patient sleep in her recliner for the next few weeks in order to minimize fall risk. Mr. Bautista stated patient used to sleep in the chair/recliner often and has never fallen out. Mr. Bautista denied the need for admission or assistance with SNF admission. Mr. Bautista stated he would like to take patient home and feels he can do so safely. Horse Exerciser encouraged Mr. Bautista to bring patient back between now and the SNF placement if need which Mr. Bautista agreed to do. Horse Exerciser updated patient's physician to share information that was obtained. No other needs identified at this time. Patient to be discharged home when medically ready. Yamilet Whelan, LOCAL COMPANY TRUCK DRIVER, VASCULAR ULTRASOUND TECHNICIAN
--- NOTE | 2025-03-04 16:23 | CM.ED ---
Social work ED heavy equipment service manager contacted SHANON stating patient's , Avila, presented today and requested resources for helping patient when Avila had reportedly declined resources in the recent past. Per medical records, patient presented on 02/27/25, spoke to SHANON Woodard, and declined admission for patient due to having plans in place for care moving forward. Avila met with this SW today and Avila stated that he still was not ready for patient to be admitted somewhere, but I'm getting pretty close to being ready. Avila stated patient needs help with all ADLs and IADLs and has bad dementia. Avila denies having supports aside from Avila's brother (lives locally) and patient's sister that lives in [place]. SW used active listening and validated Avila's concerns. SW provided resources for adult day centers, private duty aides, and [facility]. Avila stated intent to call [facility] tomorrow due to already being in conversation with them; per medical records, patient was planning to move in to [facility] by [place]. SW encouraged Avila to speak with patient's PCP as well about patient's situation or bring patient back to the ED if concerns for patient's health continue. Avila agreed and thanked SHANON for the resources and time spent. Jayshree Weldon, PROGRAMS MANAGER, ASSISTANT COMMUNITY MANAGER
== END 2025-02-27 17:13 | disposition home or self-care (01) ==
PROVIDERS: Emergency Provider Emergency Medicine; PCP Internal Medicine; Visit Provider Emergency Medicine
DX: Z04.3 Encounter for examination and observation following other accident (principal); F03.90 Unspecified dementia, unspecified severity, without behavioral disturbance, psychotic disturbance, mood disturbance, and anxiety; E86.0 Dehydration; K57.30 Diverticulosis of large intestine without perforation or abscess without bleeding; B96.20 Unspecified Escherichia coli [E. coli] as the cause of diseases classified elsewhere; I10 Essential (primary) hypertension; Z66 Do not resuscitate; Z79.899 Other long term (current) drug therapy; Z87.891 Personal history of nicotine dependence
CPT/HCPCS: 70450; 71045; 74176; 80053; 81001; 83605; 85025; 87077; 87086; 87088; 87186; 93005; 96360; 96361; 99285; P9612; A4216

== ENCOUNTER 2025-03-06 08:25 | Observation (INO) | payer MEDICARE, OTHER, SELFPAY ==
[2025-03-06] VITALS (7 sets, daily range): BP systolic 126–135; BP diastolic 68–115; PULSE 60–113; RESP 16–18; TEMP 36–36.4; O2SAT 95–100; BMI 29.6; BMI 29.2
--- NOTE | 2025-03-06 08:43 | CT_ITS ---
PROCEDURE: BRAIN/HEAD WITHOUT CONTRAST; SPINE CERVICAL WITHOUT CONTRAS 03/06/2025 REASON FOR EXAM: FALL TECHNIQUE: Procedure Code: CTBR; CTSPC Modality: CT Procedure: BRAIN/HEAD WITHOUT CONTRAST; SPINE CERVICAL WITHOUT CONTRAS Coronal and Sagittal reconstruction series were provided. One or more dose reduction techniques were used (e.g., Automated exposure control, adjustment of the mA and/or kV according to patient size, use of iterative reconstruction technique. RADIATION DOSE SUMMARY: CTDlvol: 15.47 mGy DLP: 1075.95 mGycm COMPARISON: CT head 12/28/2024. FINDINGS: CT head: Brain: No acute territorial infarction. No acute intracranial hemorrhage. No mass-effect or midline shift. Diffuse white matter hypodensities which are nonspecific but likely due to chronic small-vessel ischemia. Parenchymal volume loss consistent with brain atrophy. No ventriculomegaly. The orbits are unremarkable. The craniocervical junction is unremarkable. CSF Spaces: Advanced generalized cerebral atrophy Sinuses/Mastoids: Clear Bones: No acute bony abnormalities. CT cervical spine: Vertebral: No acute bony abnormalities. Alignment: Retrolisthesis C4 on C5 by 2 mm. Disc levels: Multilevel degenerate changes predominantly at C4-C5 where there is facet joint arthropathy, disc osteophyte complex, severe bilateral foramina stenosis and severe canal stenosis. Soft tissues: No soft tissue abnormalities. The lungs are clear. CT/Spine Cervical without Contras IMPRESSION: No acute intracranial abnormalities. No acute injury to the cervical spine. Reading Location: [facility]
--- NOTE | 2025-03-06 08:44 | EKG12_ITS ---
Test Reason : Blood Pressure : */* mmHG Vent. Rate : 69 BPM Atrial Rate : * BPM P-R Int : * ms QRS Dur : 98 ms QT Int : 406 ms P-R-T Axes : * -14 158 degrees QTcB Int : 435 ms Atrial fibrillation with premature ventricular or aberrantly conducted complexes ST & T wave abnormality, consider lateral ischemia Abnormal ECG Confirmed by MAURY MORSE, CARIDAD ([id number]), video editor FELIX BENITEZ ([id number]) on 03/08/2025 6:40:38 AM Referred By: Confirmed By: CARIDAD MENDIOLA MD
--- NOTE | 2025-03-06 08:45 | ED.VIS.FALL ---
HPI HPI - Fall History of Present Illness Chief Complaint: Fall Narrative Narrative: Patient is a 84-year-old female presenting to the emergency department after a fall. Patient has a past medical history of dementia, frequent falls, debility. Patient lives at home with who is primary digital publishing specialist. She has had 4 or 5 falls over the past 2 weeks. would like her placed in facility. He states that she was on the ground this morning when she got up from bed. She is unsure if she hit her head it was unwitnessed. She is on Eliquis. She is unable to provide history. She has no complaints. [facility] Medical History Kidney disease Hypertension Dementia Home Medications ?Medication ?Instructions ?Recorded ?Last Taken ?Type metoprolol succinate 50 mg 25 mg PO DAILY 12/10/16 12/10/16 History tablet,extended release 24 hr (Toprol XL) amlodipine 2.5 mg tablet mg 02/27/25 Unknown History apixaban 5 mg tablet (Eliquis) mg 02/27/25 Unknown History citalopram 10 mg tablet mg 02/27/25 Unknown History famotidine 40 mg tablet mg 02/27/25 Unknown History ferrous gluconate 225 mg (27 mg mg PO 02/27/25 Unknown History iron) tablet (Fergon) memantine 5 mg tablet mg 02/27/25 Unknown History pravastatin 20 mg tablet mg 02/27/25 Unknown History cephalexin 500 mg capsule 500 mg PO TID 5 days #15 CAPSULES 03/01/25 Unknown Rx Allergy/AdvReac Type Severity Reaction Status Date / Time estrogens, conjugated (From Allergy Itching Verified 03/06/25 08:34 Premarin) medroxyprogesterone Allergy Unknown Verified 03/06/25 08:34 nitrofurantoin (From Allergy Itching Verified 03/06/25 08:34 Furadantin) sulfamethoxazole (From Allergy Swelling Verified 03/06/25 08:34 Bactrim) trimethoprim (From Bactrim) Allergy Swelling Verified 03/06/25 08:34 Social History Smoking Status: Former smoker ROS ROS ED ROS Narrative see HPI, obtained from given dementia EXAM Physical Exam Narrative Exam Narrative: Vital signs: Reviewed General: Alert and orientedx0. No acute distress. Chronically ill appearing. Nontoxic. HEENT: Head is normocephalic and atraumatic.no cephalhematoma, lacerations or abrasions to the head or face. Sinuses nontender, pupils equal round and reactive. Nares are patent. No septal hematoma. Oropharynx and throat exams normal. No oropharyngeal trauma. Neck: Supple without lymphadenopathy nontender. No midline cervical spinal tenderness to palpation. No step-offs or deformities. Cardiovascular: Regular rate and rhythm, no murmurs. No rubs or gallops. Normal S1 and S2 Respiratory: Clear to auscultation bilaterally. No wheezes, rales, rhonchi Chest: Chest wall is atraumatic and nontender to palpation. No crepitus, erythema or ecchymosis. Abdominal: Soft and nontender. Normal bowel sounds. No guarding or rebound. Nonsurgical abdomen Back: No midline thoracic or lumbar spinal tenderness to palpation. No step-offs or deformities. Extremities: Hips are stable and nontender to palpation. Extremities are atraumatic and nontender to palpation. She does not consistently follow commands but on passive range of motion of the extremities there is no pain. Neurological: Moving all extremities. Does not follow commands consistently. The rest of the physical exam is unremarkable Const Vital Signs: 03/06/25 08:31 03/06/25 08:44 Temperature 97.6 F L Temperature Source Oral Pulse Rate 88 Respiratory Rate 18 Respiratory Effort Normal Non-Labored Respiratory Depth Normal Respiratory Pattern Normal Blood Pressure 130/79 H Blood Pressure Mean 96 Pulse Ox 97 97 Oxygen Delivery Method Room Air Room Air MDM MDM MDM Narrative Medical decision making narrative: Patient is a 84-year-old female presenting to the emergency department for an unwitnessed fall. Patient was seen and examined. Vitals are stable. Patient resting in bed comfortably no acute distress. states that she will wake up during the night and sit on the side of the bed and then fall asleep again causing her to fall forward. States that she was in bed last night and then was found on the ground this morning, not on the ground more than 10 hours. I do not think she needs a CK level ordered. States he did not wake when she fell. Extremities are able to be ranged without any pain. Do not think she needs xrays of her extremities, pelvis or chest. CT of the brain and cervical spine will be ordered given patient is on Eliquis and unknown if she hit her head or not. Basic blood work including CBC, BMP and EKG will be obtained for admission. EKG shows A-fib with rate controlled at 69. There is a poor baseline but no ST elevation or depression concerning for STEMI. No obvious ischemic changes. CBC with no leukocytosis and a normal hemoglobin. BMP with very mild BARON actually improved from a few days ago on 02/27/2025. Hypokalemia 2.7. Will trial oral replacement if she does not tolerate will give IV replacement. CT the brain shows no acute intracranial abnormalities. CT of the cervical spine with no acute injury. Discussed negative workup with patient's at bedside. Will admit for placement. Clinical impression Unwitnessed fall Hypokalemia Frequent falls History & Record Review Discussion w/independent historian: Significant other Additional record(s) reviewed:: Prior ED visit Lab Data Attestation: I reviewed the patient's lab results. Labs: Laboratory Results - last 24 hr 03/06/25 09:00 WBC 7.1 RBC 4.43 Hgb 13.6 Hct 41.4 MCV 93.5 MCH 30.7 MCHC 32.9 RDW Std Deviation 53.9 H RDW Coeff of Isa 15.8 H Plt Count 246 MPV 11.4 Immature Gran % (Auto) 1.000 H Neut % (Auto) 67.1 Lymph % (Auto) 22.7 [place] % (Auto) 7.3 Eos % (Auto) 1.1 Baso % (Auto) 0.8 Absolute Neuts (auto) 4.8 Absolute Lymphs (auto) 1.61 Nucleated RBC % 0 Sodium 144 Potassium 2.7 L* Chloride 104 Carbon Dioxide 25.9 Anion Gap 14 BUN 21 H Creatinine 1.30 H Estim Creat Clear Calc 35.02 L Est GFR (MDRD) Non-Af 41 L BUN/Creatinine Ratio 16.0 Glucose 95 Calcium 10.1 Radiography Diagnostic Testing: Clinical Impression(s) from Imaging Studies Brain CT 03/06/25 08:43 IMPRESSION: No acute intracranial abnormalities. No acute injury to the cervical spine. Reading Location: [facility] Cervical Spine CT 03/06/25 08:43 IMPRESSION: No acute intracranial abnormalities. No acute injury to the cervical spine. Reading Location: [facility] Discharge Plan Triage Chief Complaint: Fall ED Provider: Nikki Gleason Dx/Rx/DC Orders Prescriptions: No Action metoprolol succinate [Toprol XL] 50 MG tablet extended release 24 hr 25 mg PO DAILY citalopram 10 mg tablet Patient Comments: [NO ORIGINAL SIG] famotidine 40 mg tablet Patient Comments: [NO ORIGINAL SIG] amlodipine 2.5 mg tablet Patient Comments: [NO ORIGINAL SIG] pravastatin 20 mg tablet Patient Comments: [NO ORIGINAL SIG] memantine 5 mg tablet Patient Comments: [NO ORIGINAL SIG] Fergon 225 mg (27 mg iron) tablet PO Eliquis 5 mg tablet Patient Comments: [NO ORIGINAL SIG] cephalexin 500 mg capsule 500 mg PO TID 5 Days Qty: 15 0RF Primary Care Provider: Yaneth Bernal Referrals: Yaneth Bernal MD [Primary Care Provider, Internal Medicine] Print Language: Wolof
[2025-03-06 09:10] LABS: Hematocrit 41.4 % (37-47); Hemoglobin 13.6 g/dL (12.0-15.0); Immature Granulocytes Count 0.070 X10^3/uL (0.0-0.0); Mean Corp Hgb Conc 32.9 g/dL (32-36); Mean Corpuscular Volume 93.5 fL (81-99); Mean Platelet Vol. 11.4 fl (6.2-12.0); NRBC Flagged by Analyzer 0 % (0-5); Platelet Count 246 K/mm3 (150-450); RBC Distribution Width CV 15.8 % (11.6-14.6); RBC Distribution Width SD 53.9 fl (35.1-43.9); Red Blood Count 4.43 M/mm3 (4.2-5.4); White Blood Count 7.1 K/mm3 (4.4-11.0)
[2025-03-06 09:50] LABS: Anion Gap 14 (5-15); BUN 21 mg/dL (4-19); BUN/Creat Ratio 16.0 RATIO (10-20); Calcium,Total 10.1 mg/dL (7.6-11.0); Carbon Dioxide 25.9 mmol/L (21.0-32.0); Chloride 104 mmol/L (98-108); Estimated Creatinine Clearance 35.02 ml/min (50-250); Glucose 95 mg/dL (70-99); Potassium 2.7 mmol/L (3.3-5.1)
[2025-03-06] MEDS: Potassium Chloride Oral Tablet 20 MEQ 60 MEQ PO (09:59)
[2025-03-06] MEDS: 0.9% Normal Saline (1000mL) 1,000 ML 1000 ML IV (10:16)
--- OUTSIDE RECORDS SUMMARY | 2025-03-06 10:37 | XMS RPT_ITS | CCD ---
Author Organization [facility] CliniSydc Care Team Providers Care Sales Order Administrator Name Role Phone Gabe MORSE, Vanessa Primary Care Provider GANTA, VANESSA Primary Care Unavailable OLDER, MEAGAN Referring Unavailable Gabe MORSE, Vanessa Primary Care Provider GANTA, VANESSA Primary Care Unavailable ROSSY CROCKER Attending Unavailab le Gabe MORSE, [facility] Primary Care Provider Ganta, Vanessa Primary Care Unavailable Fabio Orozco Attending Unavailable Ganta, Vanessa Primary Care Unavailable Silver Durbin Attending Unavailable Denbow PA-C, Kinga L Unavailable Older RADIO RECORDER.COUPON REDEMPTION CLERK, Meagan Unavailable Bogner PA-C, Agby Unavailable Denbow PA-C, Kinga L Unavailable Bogner [...] (1 source) Trimethoprim Drug Allergy 022 Swelling [facility] Estrogens, Conjugated (SHELTER) (1 source) Estrogens, Conjugated (SHELTER) Drug Allergy [facility] medroxyPROGESTERone (1 source) medroxyPROGESTERone Drug Allergy [facility] Nitrofurantoin (1 source) Nitrofurantoin Drug Allergy [facility] Work Phone: NITROFURANTOIN, MACROCRYSTALS / Nitrofurantoin, Monohydrate (1 source) NITROFURANTOIN, MACROCRYSTALS / Nitrofurantoin, Monohydrate Drug Allergy Diarrhea [facility] Sulfamethoxazole / Trimethoprim (1 source) Sulfamethoxazole / Trimethoprim Drug Allergy [facility] Work Phone: Sulfonamides (antibiotic) (1 source) Sulfamethoxazole Drug Allergy 022 Swelling [facility] (20 sources) Estrogens, Conjugated (SHELTER) Drug Allergy 005 Itching [facility] Work Phone: (20 sources) medroxyPROGESTERone; Translations: [MEDROXYPROGESTERONE] Drug Allergy 005 Unknown [facility] Work Phone: (20 sources) Nitrofurantoin; Translations: [NITROFURANTOIN] Drug Allergy 005 [facility] Work Phone: (20 sources) Sulfamethoxazole; Translations: [SULFAMETHOXAZOLE] Drug Allergy 022 Swelling [facility] (20 sources) Trimethoprim; Translations: [TRIMETHOPRIM] Drug Allergy [facility] (20 sources) NITROFURANTOIN, MACROCRYSTALS / Nitrofurantoin, Monohydrate; Translations: [NITROFURANTOIN MONOHYD/M-CRYST] Drug Allergy 005 Diarrhea [facility] Work Phone: (20 sources) Sulfamethoxazole / Trimethoprim; Translations: [SULFAMETHOXAZOLE-TRI METHOPRIM] Drug Allergy [facility] Work Phone: (3 sources) CONJUGATED ESTROGENS; Translations: [CONJUGATED ESTROGENS] Propensity to adverse reactions to drug (disorder) [facility] Other [place] [facility] (1 source) Estrogens, Conjugated (SHELTER) Drug Allergy [facility] Repository (1 source) medroxyPROGESTERone Drug Allergy [facility] Repository (1 source) Nitrofurantoin Drug Allergy [facility] Repository (1 source) Sulfamethoxazole Drug Allergy [facility] Repository (1 source) Trimethoprim Drug Allergy [facility] Repository Medications Current Medications Medication Drug Class(es) [...] hydrochloride 5 mg oral tablet (20 sources) B-rduzlk-J-aspartate Receptor Antagonist Start: 04-22-2023 End: 05-26-2024 take [...] sources) Anticholinergic Start: 04-08-2024 End: 06-10-2024 Ipratropium [place] (ATROVENT) 21 mcg (0.03 %) nasal spray Use 2 Sprays in the nose every 12 hours. 30 mL 2 04/08/2024 06/10/2024 Discontinued (Discontinued by Patient) Start: 04-06-2021 End: 04-05-2024 Ipratropium [place] (ATROVEN T) 21 mcg (0.03 %) nasal [...] 1 tablet by evon th once daily Yncfpvdamkmhj-Mpxhrbto-Rgfkwi (CENTRUM SILVER) Tab Take 1 tablet by [...] Test Name Value Interpretation Reference Range Facility [facility] 10-27-2024 CNPN Telephone (MPPV) GERTRUDE FLORES ([id number]) 1940 F Date Time Provider Department 10/27/24 YRIS DICKSON [facility] During your visit today, we recorded [...] in-home PCP. SHANON has left x3 with [facility] to inquire if [place] is in their territory/if they are accepting new Pts. SHANON spoke with Pt's spouse, Avila, on this date and provided update. 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 SHANON reached out to [place] CLAUDIO, Pranav Gorman, and Anila Prabhakar, Senior Belt Measurer for Community [employer]ong to inquire about alternative resources. With their assistance [facility] to inquire about services. 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 Remi 10-22-2024 [facility] Telephone ([facility]) GERTRUDE FLORES ([id number]) 1940 F Date Time Provider Department 10/22/24 SHELBIE CM [facility] During your visit today, we recorded the following information about you: Bear Hess PSS 10/22/2024 3:37 PM Signed [facility] REFERRAL Date Referral Received: 10/22/2024 Referral Source: CC Physician office Date of : 1940 Age: [age] year old PCP: Vanessa Her MD Visit address from [facility]: [facility] [facility] [address] Reason for referral: Ongoing Primary Care Name of Physician who gave the order: Dr. Shelbie Cm Primary Insurance Company: Payor: MEDICARE / Plan: MEDICARE A AND B / Product Type: Medicare / Primary Insurance ID Number: [id number] Bear Hess PSS 10/22/2024 3:37 PM Signed Medical Care at home referral was received for Primary Care services. Unfortunately the referral is declined at this time due to geographic location. Thank you for the referral. Patient discharged from Medical Care at Home: Discharge Reason: Other with Patient resides outside of the [facility] service area Discharge Date: 10/22/2024 Please cancel any pending orders-[facility], upcoming appointments with [facility] ROSALES Cerna Allergies As of Date: 10/22/2024 [...] Reason for Visit: Initial Consult [665] Cmt: [facility] [id number] Prescriptions as of 10/22/2024 - levothyroxine (TIROSINT-SANJAY) [...] problem [R26.89] 03/22/2016 B12 deficiency [E53.8] 03/22/2016 [place] (hard of hearing) [H91.90] 03/22/2016 Screening for colon cancer [Z12.11] 12/24/2016 PVC's (premature ventricular contractions) [I49*09/12/2018 Mixed hyperlipidemia [E78.2] 02/10/2019 CKD (chronic kidney disease) stage 3, GFR 30-59*08/12/2019 Chronic pain of left knee [M25.562, G89.29] 05/03/2023 Chronic knee instability, 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 CNPGianna 10-21-2024 [facility] GERTRUDE FLORES ([id number]) 1940 F Date Time Provider Department 10/21/24 [facility]ESSA [facility] During your visit today, we recorded the following information about you: Efrain Patient Upper And Bottom Lacer HandJustin 10/21/2024 1:14 PM Signed Referring provider, if [...] in the pm block Justin Zuniga Patient Upper And Bottom Lacer Hand Allergies As of Date: 10/21/2024 Noted Allergy Reaction BACTRIM DS (SULFAMETHOXAZOLE-TRI M*03/20/2005 Comments: blisters in mouth, edema FURADANTIN (NITROFURANTOIN) 03/20/2005 4 - Hives MACROBID (NITROFURANTOIN MONOHYD/*03/20/2005 6 - Diarrhea PREMARIN (CONJUGATED ESTROGENS) 03/20/2005 PROVERA (MEDROXYPROGESTERONE) 03/20/2005 SULFAMETHOXAZOLE 06/11/2021 7 - Swelling TRIMETHOPRIM 06/11/2021 7 - Swelling Date Reviewed: 10/16/2024 Reviewed by: Dariela Morrell MA - Fully Assessed Reason for Visit: [id number] Palliative Care [Other] Prescriptions as of 10/27/2024 [...] problem [R26.89] 03/22/2016 B12 deficiency [E53.8] 03/22/2016 [place] (hard of hearing) [H91.90] 03/22/2016 Screening for colon cancer [Z12.11] 12/24/2016 PVC's (premature ventricular contractions) [I49*09/12/2018 Mixed hyperlipidemia [E78.2] 02/10/2019 CKD (chronic kidney disease) stage 3, GFR 30-59*08/12/2019 Chronic pain of left knee [M25.562, G89.29] 05/03/2023 Chronic knee instability, 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 Avila informed phone technician patient has about 2 months left of meds as she hasn't been taking regularly. stated he made provider aware of situation and is planning on working with office to simplify medication regimen. We will f/u with patient in 1 month. Thanks, Nehal Pablo [facility] Vanessa Her MD 10/20/2024 6:53 PM Signed [...] Fully Assessed Reason for Visit: Compliance Adherence [[id number]] Prescriptions as of 10/21/2024 - levothyroxine (TIROSINT-SANJAY) [...] problem [R26.89] 03/22/2016 B12 deficiency [E53.8] 03/22/2016 [place] (hard of hearing) [H91.90] 03/22/2016 Screening for colon cancer [Z12.11] 12/24/2016 PVC's (premature ventricular contractions) [I49*09/12/2018 Mixed hyperlipidemia [E78.2] 02/10/2019 CKD (chronic kidney disease) stage 3, GFR 30-59*08/12/2019 Chronic pain of left knee [M25.562, G89.29] 05/03/2023 Chronic knee instability, 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] 05/03/2023 Persistent atrial fibrillation (HCC) [I48.19] 03/09/2024 Encounter Status:Closed by DARIELA MORRELL on 10/21/24 [facility] (CHARO) GERTRUDE FLORES ([id number]) 1940 F Date Time Provider Department 10/19/24 [...] AM Signed Shanon received message back that [facility] Palliative Care Dept, will be reaching out [...] Assessed Prescriptions as of 10/20/2024 - levothyroxine (TIROSINT-SANAJY) 37.5 mcg/mL solution Take 3 mL (contents [...] problem [R26.89] 03/22/2016 B12 deficiency [E53.8] 03/22/2016 [place] (hard of hearing) [H91.90] 03/22/2016 Screening for colon cancer [Z12.11] 12/24/2016 PVC's (premature ventricular contractions) [I49*09/12/2018 Mixed hyperlipidemia [E78.2] 02/10/2019 CKD (chronic kidney disease) stage 3, GFR 30-59*08/12/2019 Chronic pain of left knee [M25.562, G89.29] 05/03/2023 Chronic knee instability, 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 CNOVon 10-16-2024 CNOV Office Visit (INTMWS ) GERTRUDE FLORES ([id number]) 1940 F Date Time Provider Department 10/16/24 10:00 AM VANESSA HER INTMWS During your visit today, we recorded the following information about you: Pulse Respiration Blood pressure Weight 66/minute 16/minute 135/77 81.9 kg Vanessa Her MD 10/16/2024 10:49 AM Signed Gertrude [...] other medic (more content not included)... Normal [facility] CNOVon 08-21-2024 CNOV Office Visit (INTMWS ) GERTRUDE FLORES ([id number]) 1940 F Date Time Provider Department 08/21/24 [...] daily. This prescription has been sent to [facility] and includes a 90-day supply [...] mg tablet (more content not included)... Normal [facility] CNOVon 06-10-2024 CNOV Office Visit (CARDMM ) GERTRUDE FLORES ([id number]) 1940 F Date Time Provider Department 06/10/24 11:30 AM JUANA PRABHAKAR During your visit today, we recorded the following information about you: Pulse Blood pressure Weight Height 61/minute 132/74 83 kg 1.651 m Juana Prabhakar, RADIO RECORDER.COUPON REDEMPTION CLERK 06/22/2024 12:55 PM Count Includes [facility] [place] Walter Rodriguez Department of Cardiovascular Medicine SECTION [...] prior to the follow up. Juana Prabhakar APRN.[facility] Cardiology Nurse Practitioner Section of Regional Cardiology [facility] Dept of Cardiovascular Medicine [facility] [place] [address] [place] [address] Office Office June 10, 2024 11:39 AM This note was partially generated using [employer] voice recognition system and may contain errors [...] Total ( (more content not included)... Normal [facility] CNPNon 05-26-2024 CNPN Telephone (RXADH) GERTRUDE FLORES ([id number]) 1940 F Date Time Provider Department 05/26/24 YAMILET ADAMSON RXADH During your visit today, we recorded the following information about you: Yamilet Adamson elizabeth 05/26/2024 4:01 PM Signed Pharmacy-Reviewed Medication History Patient Name:.Gertrude Flores : 1940 Patient Contact Attempt: First attempt Adherence Packing Program Accepted? Yes, patient wishes to participate. Yamilet Adamson RPh May 26, 2024 4:00 PM [facility] [phone] Allergies As of Date: 05/26/2024 Noted Allergy Reaction BACTRIM DS (SULFAMETHOXAZOLE-TRI M*03/20/2005 Comments: blisters in mouth, edema FURADANTIN (NITROFURANTOIN) 03/20/2005 4 - Hives MACROBID (NITROFURANTOIN MONOHYD/*03/20/2005 6 - Diarrhea PREMARIN (CONJUGATED ESTROGENS) 03/20/2005 PROVERA (MEDROXYPROGESTERONE) 03/20/2005 SULFAMETHOXAZOLE 06/11/2021 7 - Swelling TRIMETHOPRIM 06/11/2021 7 - Swelling Date Reviewed: 05/19/2024 Reviewed by: Dori Wheat LPN - Fully Assessed Reason for Visit: Compliance Adherence [[id number]] Prescriptions as of 12/31/2024 - levothyroxine (TIROSINT-SANJAY) [...] problem [R26.89] 03/22/2016 B12 deficiency [E53.8] 03/22/2016 [place] (hard of hearing) [H91.90] 03/22/2016 Screening for colon cancer [Z12.11] 12/24/2016 PVC's (premature ventricular contractions) [I49*09/12/2018 Mixed hyperlipidemia [E78.2] 02/10/2019 Dementia without behavioral disturbance (HCC) [*02/10/2019 CKD (chronic kidney disease) stage 3, GFR 30-59*08/12/2019 Chronic pain of left knee [M25.562, G89.29] 05/03/2023 Chronic knee instability, 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0 % [facility] Hematocrit (Bld) [Volume fraction] 41.7 % 36.0 - 46.0 % [facility] Hemoglobin (Bld) [Mass/Vol] 13.3 g/dL 11.5 - 15.5 g/dL [facility] Immature granulocytes (Bld) [#/Vol] 0.03 10*3/uL [facility] Immature granulocytes/100 WBC (Bld) 0.3 % [facility] Lymphocytes (Bld) [#/Vol] 1.77 10*3/uL [facility] Lymphocytes/100 WBC (Bld) 20.5 % [facility] MCH (RBC) [Entitic mass] 28.7 pg 26. 0 - 34.0 pg [facility] MCHC (RBC) [Mass/Vol] 31.9 g/dL 30.5 - 36.0 g/dL [facility] MCV (RBC) [Entitic vol] 89.9 fL 80.0 - 100.0 fL [facility] Monocytes (Bld) [#/Vol] 0.71 10*3/uL [facility] Monocytes/100 WBC (Bld) 8.2 % C [facility] Neutrophils (Bld) [#/Vol] 5.77 10*3/uL [facility] Neutrophils/100 WBC (Bld) 66.8 % [facility] Nucleated RBC (Bld) [#/Vol] [facility] Nucleated RBC/100 WBC (Bld) [Ratio] 0 % /100 WBC [facility] Platelet mean volume (Bld) [Entitic vol] 10.4 fL 9.0 - 12.7 fL [facility] Platelets (Bld) [#/Vol] 299 10*3/uL [facility] RBC (Bld) [#/Vol] 4.64 10*6/uL 3.90 - 5.2 0 m/uL [facility] WBC (Bld) [#/Vol] 8.65 10*3/uL [facility] Basophils (Bld) [#/Vol] 0.09 10*3/uL Normal <0.11 [facility] Comment on above: Order Comment: Speci men Type: BLOOD SPECIMENOrdering Facility: [facility] Address: [address] [place] [address] Performed By: #### 5 7021-8 ####[facility] MILLWNCLIA [id number] [place] [address] [place] Basophils/100 WBC (Bld) 1.0 % Normal C [facility] Comment on above: Order Comment: Speci men Type: BLOOD SPECIMENOrdering Facility: [facility] Address: [address] [place] [address] Performed By: #### 5 7021-8 ####[facility] MILLWNCLIA [id number] [place] [address] [place] Differential cell count method Nom (Bld) Auto Normal [facility] Comment on above: Order Comment: Speci men Type: BLOOD SPECIMENOrdering Facility: [facility] Address: [address] [place] [address] Performed By: #### 5 7021-8 ####[facility] MILLTOWNCLIA [id number] [place] [address] [place] Eosinophils (Bld) [#/Vol] 0.28 10*3/uL Normal <0.46 [facility] Comment on above: Order Comment: Speci men Type: BLOOD SPECIMENOrdering Facility: [facility] Address: [address] [place] [address] Performed By: #### 5 7021-8 ####[facility] MILLTOWNCLIA [id number] [place] [address] [place] Eosinophils/100 WBC (Bld) 3.2 % Normal [facility] Comment on above: Order Comment: Speci men Type: BLOOD SPECIMENOrdering Facility: [facility] Address: [address] [place] [address] Performed By: #### 5 7021-8 ####[facility]ITALGARRYCENTRAL [facility] [id number] [place] [address] [place] Erythrocyte distribution width (RBC) [Ratio] 14.2 % Normal 11.5-15.0 [facility] Comment on above: Order Comment: Speci men Type: BLOOD SPECIMENOrdering Facility: [facility] Address: [address] [place] [address] Performed By: #### 5 7021-8 ####[facility] HOS[facility]ITALGARRYCruz [id number] [place] [address] [place] Hematocrit (Bld) [Volume fraction] 41.7 % Normal 36.0-46.0 [facility] Comment on above: Order Comment: Speci men Type: BLOOD SPECIMENOrdering Facility: [facility] Address: [address] [place] [address] Performed By: #### 5 7021-8 ####[facility] [id number] [place] [address] [place] Hemoglobin (Bld) [Mass/Vol] 13.3 g/dL Normal 11.5-15.5 [facility] Comment on above: Order Comment: Speci men Type: BLOOD SPECIMENOrdering Facility: [facility] Address: [address] [place] [address] Performed By: #### 5 7021-8 ####[facility] [id number] [place] [address] [place] Immature granulocytes (Bld) [#/Vol] 0.03 10*3/uL Normal <0.10 [facility] Comment on above: Order Comment: Speci men Type: BLOOD SPECIMENOrdering Facility: [facility] Address: [address] [place] [address] Performed By: #### 5 7021-8 ####[facility] [id number] [place] [address] [place] Immature granulocytes/100 WBC (Bld) 0.3 % Normal [facility] Comment on above: Order Comment: Speci men Type: BLOOD SPECIMENOrdering Facility: [facility] Address: [address] [place] [address] Performed By: #### 5 7021-8 ####[facility] [id number] [place] [address] [place] Lymphocytes (Bld) [#/Vol] 1.77 10*3/uL Normal 1.00-4.00 [facility] Comment on above: Order Comment: Speci men Type: BLOOD SPECIMENOrdering Facility: [facility] Address: [address] [place] [address] Performed By: #### 5 7021-8 ####[facility] [id number] [place] [address] [place] Lymphocytes/100 WBC (Bld) 20.5 % Normal [facility] Comment on above: Order Comment: Speci men Type: BLOOD SPECIMENOrdering Facility: [facility] Address: [address] [place] [address] Performed By: #### 5 7021-8 ####[facility] [id number] [place] [address] [place] MCH (RBC) [Entitic mass] 28.7 pg Normal 26.0-34.0 [facility] Comment on above: Order Comment: Speci men Type: BLOOD SPECIMENOrdering Facility: [facility] Address: [address] [place] [address] Performed By: #### 5 7021-8 ####[facility] MILLWNCLIA [id number] [place] [address] [place] MCHC (RBC) [Mass/Vol] 31.9 g/dL Normal 30.5-36.0 [facility] Comment on above: Order Comment: Speci men Type: BLOOD SPECIMENOrdering Facility: [facility] Address: [address] [place] [address] Performed By: #### 5 7021-8 ####[facility] HOSPITALNCLIA [id number] [place] [address] [place] MCV (RBC) [Entitic vol] 89.9 fL Normal 80.0-100.0 C [facility] Comment on above: Order Comment: Speci men Type: BLOOD SPECIMENOrdering Facility: [facility] Address: [address] [place] [address] Performed By: #### 5 7021-8 ####[facility] HOS[facility]ITALNCLIA [id number] [place] [address] [place] Monocytes (Bld) [#/Vol] 0.71 10*3/uL Normal <0.87 [facility] Comment on above: Order Comment: Speci men Type: BLOOD SPECIMENOrdering Facility: [facility] Address: [address] [place] [address] Performed By: #### 5 7021-8 ####[facility]ITALNCLIA [id number] [place] [address] [place] Monocytes/100 WBC (Bld) 8.2 % Normal C [facility] Comment on above: Order Comment: Speci men Type: BLOOD SPECIMENOrdering Facility: [facility] Address: [address] [place] [address] Performed By: #### 5 7021-8 ####[facility] HOSPITALNCLI [id number] [place] [address] [place] Neutrophils (Bld) [#/Vol] 5.77 10*3/uL Normal 1.45-7.50 [facility] Comment on above: Order Comment: Speci men Type: BLOOD SPECIMENOrdering Facility: [facility] Address: [address] [place] [address] Performed By: #### 5 7021-8 ####[facility] CENTERWMILIA [id number] [place] [address] [place] Neutrophils/100 WBC (Bld) 66.8 % Normal [facility] Comment on above: Order Comment: Speci men Type: BLOOD SPECIMENOrdering Facility: [facility] Address: [address] [place] [address] Performed By: #### 5 7021-8 ####[facility] [id number] [place] [address] [place] Nucleated RBC (Bld) [#/Vol] 10*3/uL Normal <0.01 [facility] Comment on above: Order Comment: Speci men Type: BLOOD SPECIMENOrdering Facility: [facility] Address: [address] [place] [address] Performed By: #### 5 7021-8 ####[facility] MED[facility] CENTERLIA [id number] [place] [address] [place] Nucleated RBC/100 WBC (Bld) [Ratio] 0.0 /100 WBC Normal [facility] Comment on above: Order Comment: Speci men Type: BLOOD SPECIMENOrdering Facility: [facility] Address: [address] [place] [address] Performed By: #### 5 7021-8 ####[facility] HOSPITALNCLIA [id number] [place] [address] [place] Platelet mean volume (Bld) [Entitic vol] 10.4 fL Normal 9.0-12.7 [facility] Comment on above: Order Comment: Speci men Type: BLOOD SPECIMENOrdering Facility: [facility] Address: [address] [place] [address] Performed By: #### 5 7021-8 ####[facility] CORNELIUSNCLIA [id number] [place] [address] [place] Platelets (Bld) [#/Vol] 299 10*3/uL Normal 150-400 [facility] Comment on above: Order Comment: Speci men Type: BLOOD SPECIMENOrdering Facility: [facility] Address: [address] [place] [address] Performed By: #### 5 7021-8 ####[facility] HOSPITALNCLIA [id number] [place] [address] [place] RBC (Bld) [#/Vol] 4.64 10*6/uL Normal 3.90-5.20 [facility] Comment on above: Order Comment: Speci men Type: BLOOD SPECIMENOrdering Facility: [facility] Address: [address] [place] [address] Performed By: #### 5 7021-8 ####[facility] HOSPITALNCLIA [id number] [place] [address] [place] WBC (Bld) [#/Vol] 8.65 10*3/uL Normal 3.70-11.00 [facility] Comment on above: Order Comment: Speci men Type: BLOOD SPECIMENOrdering Facility: [facility] Address: [address] [place] [address] Performed By: #### 5 7021-8 ####[facility] HOSPITALNCLIA [id number] [place] [address] [place] CNOVon 05-19-2024 CNOV Office Visit (INTMWS ) GERTRUDE FLORES ([id number]) 1940 F Date Time Provider Department 05/19/24 [...] to nail issues, . 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 Normal [facility] T4 Free SerPl-mCncon 05-19- 025 Free T4 [Mass/Vol] 1.5 ng/dL Normal 0.9-1.7 [facility] Comment on above: Order Comment: Speci men Type: BLOOD SPECIMENOrdering Facility: [facility] Address: [address] [place] [address] Performed By: #### 3 016-3, 3024-7 ####Ale[facility] AnalyticsROCKEFELLER NEUROSCIENCE INSTITUTE INNOVATION CENTERCLIA [id number] [address] [place] TSH SerPl-aCncon 05-19-2024 TSH Qn 2.920 m[IU]/L Normal 0.270-4.200 [facility] Comment on above: Order Comment: Speci men Type: BLOOD SPECIMENOrdering Facility: [facility] Address: [address] [place] [address] Performed By: #### 3 016-3, 3024-7 ####[facility] AnalyticsCITY HOSPITAL LABORATORYCLIA [id number] [place] [address] [place] ECHOon 04-09-2024 Echocardiography Echocardiography Report: Transthoracic Echo [facility] Office Date of service: 04/09/2024 1:46:20 PM CAR 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 Ordering physician: ROSSY CROCKER Indication: AFIB Technologist: [...] * * Final * * * CC [employer] Medical Image : [id number] amicsSISUID Normal [facility] CNOVon 03-09-2024 CNOV Office Visit (BUZZ ) FLORESGERTRUDE ([id number]) 1940 F Date Time Provider Department 03/09/24 11:20 AM ROSSY CROCKER During your visit today, we recorded the following information about you: Pulse Blood pressure Weight Height 83/minute 126/74 77.7 kg 1.651 m Rossy Crocker DO 03/09/2024 12:01 PM Signed [facility] SE[facility] OUTPATIENT VISIT DATE March 09, 2024 PRIMARY CARE PHYSICIAN: Vanessa Her [address] [place] [address] HISTORY OF PRESENT ILLNESS: Ms. Flores is [...] 01/08/2017 COLONOSCO (more content not included)... Normal [facility] [id number] 03-09-2024 ECG01 Ventricular Rate : 8 3 BPM QRS Duration : 92 ms Q-T Interval : 372 ms QTC Calculation(Bazett) : 437 ms Calculated R Lincoln : 31 degrees Calculated T [place] : 22 degrees ATRIAL FIBRILLATION MINIMAL VOLTAGE CRITERIA FOR LVH, MAY BE NORMAL VARIANT ( Amado product ) ABNORMAL ECG Confirmed by MD CROCKER GREGORY () on 03/11/2024 10:23:45 AM NAME : GERTRUDE FLORES PID : [id number] : 1940 Gender : Female Race : ORD : Procedure Date : Mar 09 2024 11:02:00 Edit Date : Mar 11 2024 10:23:48 Diagnosis: ATRIAL FIBRILLATION MINIMAL VOLTAGE CRITERIA FOR LVH, MAY BE NORMAL VARIANT ( Cooper product ) ABNORMAL ECG Confirmed by MD CROCKER GREGORY () on 03/11/2024 10:23:45 AM Test Reason : Location : 211 : [place] Overread By : MD CROCKER GREGORY Edited By : MD CROCKER GREGORY Referred By : ROSSY CROCKER Acquired by : Lluvia EASTMAN [facility] CNOVon 02-17-2024 CNOV Office Visit (INTMWS ) GERTRUDE FLORES ([id number]) 1940 F Date Time Provider Department 02/17/24 2:00 PM VANESSA HER INTMWS During your visit today, we recorded the following information about you: Pulse Respiration Blood pressure Weight 62/minute 16/minute 149/81 81.6 kg Vanessa Her MD 02/17/2024 6:23 PM Signed [facility] Initial Consult Gertrude Flores is a 83 year old year old female who comes for Comprehensive Geriatric Assessment. Pt accompanied by: , Sarthak Flores Caregivers involved in care: HPI: Here for follow up of AD. Last visit we had given information on [facility], the has yet to call them, he [...] They have looked into a facility near [place] which is more like a memory unit [...] take 1 tablet every day - Ipratropium [place] (ATROVENT) 21 mcg (0.03 %) nasal spray Use 2 Sprays in the nose every 12 carin (more content not included)... Normal [facility] Basic metabolic 2000 panelon 02-11-2024 Anion gap [Moles/Vol] 9 mmol/L Normal 8-15 [facility] Comment on above: Order Comment: Speci men Type: BLOOD SPECIMENOrdering Facility: [facility] Address: [address] [place] [address] Performed By: #### 2 4321-2 ####[facility] KENYA HOLLOWAYYANKEETOWNBILL [id number] [place] [id number] [place] Calcium [Mass/Vol] 10.0 mg/dL Normal 8.5-10.2 [facility] Comment on above: Order Comment: Speci men Type: BLOOD SPECIMENOrdering Facility: [facility] Address: [address] [place] [address] Performed By: #### 2 4321-2 ####[facility] MILLTOWNCLIA [id number] [place] [address] [place] Chloride [Moles/Vol] 105 mmol/L Normal 98-107 [facility] Comment on above: Order Comment: Speci men Type: BLOOD SPECIMENOrdering Facility: [facility] Address: [address] [place] [address] Performed By: #### 2 4321-2 ####[facility] MEDICAL CENTERLIA [id number] [place] [address] [place] CO2 [Moles/Vol] 27 mmol/L Normal 22-30 [facility] Comment on above: Order Comment: Speci men Type: BLOOD SPECIMENOrdering Facility: [facility] Address: [address] [place] [address] Performed By: #### 2 4321-2 ####[facility] MEDICAL CENTERLIA [id number] [place] [address] [place] Creatinine [Mass/Vol] 1.02 mg/dL High 0.58-0.96 [facility] Comment on above: Order Comment: Speci men Type: BLOOD SPECIMENOrdering Facility: [facility] Address: [address] [place] [address] Performed By: #### 2 4321-2 ####[facility] MED[facility] CENTERLIA [id number] [place] [address] [place] Creatinine and Glomerular filtration rate.predicted panel (S/P/Bld) 55 mL/min/1.73m??? Low >=60 [facility] Comment on above: Order Comment: Speci men Type: BLOOD SPECIMENOrdering Facility: [facility] Address: [address] [place] [id number] Result Comment: Jazzy mated Glomerular Filtration Rate [...] Performed By: #### 2 4321-2 ####[facility] [id number] [place] [address] [place] Glucose [Mass/Vol] 94 mg/dL Normal 74-99 [facility] Comment on above: Order Comment: Griffin verdugo Type: BLOOD SPECIMENOrdering Facility: [facility] Address: [address] [place] [address] Result Comment: The [place] Diabetes Association (ADA) provides guidance for cutoff [...] Standards of Medical Care in Diabetes 2016, [place] Diabetes Association. Diabetes Care. 2016.39(Suppl 1). Performed By: #### 2 4321-2 ####[facility] [id number] [place] [address] [place] Potassium [Moles/Vol] 4.2 mmol/L Normal 3.7-5.1 [facility] Comment on above: Order Comment: Griffin verdugo Type: BLOOD SPECIMENOrdering Facility: [facility] Address: [address] [place] [id number] Performed By: #### 2 4321-2 ####[facility] HOSPITALA [id number] [place] [address] [place] Sodium [Moles/Vol] 141 mmol/L Normal 136-144 [facility] Comment on above: Order Comment: Speci men Type: BLOOD SPECIMENOrdering Facility: [facility] Address: [address] [place] [address] Performed By: #### 2 4321-2 ####[facility] [id number] [place] [address] [place] Urea nitrogen [Mass/Vol] 17 mg/dL Normal 7-21 [facility] Comment on above: Order Comment: Speci men Type: BLOOD SPECIMENOrdering Facility: [facility] Address: [address] [place] [address] Performed By: #### 2 4321-2 ####[facility] [id number] [place] [address] [place] Lipid 1996 panelon 4 Cholesterol [Mass/Vol] 149 mg/dL Normal <200 [facility] Comment on above: Order Comment: Speci men Type: BLOOD SPECIMENOrdering Facility: [facility] Address: [address] [place] [address] Result Comment: <200 mg/dL, Desirable 200-239 mg/dL, Borderline high >239 mg/dL, High Performed By: #### 2 4331-1 ####[facility] LABCLIA [id number] [place] [id number] [place] AMERICAADVENT[facility] [id number] [place] [address] [place] Cholesterol in HDL [Mass/Vol] 48 mg/dL Normal >39 [facility] Comment on above: Order Comment: Speci men Type: BLOOD SPECIMENOrdering Facility: [facility] Address: [address] [place] [address] Result Comment: 40-5 9 mg/dL, Acceptable >59 mg/dL, High: Negative risk factor for coronary heart disease <40 mg/dL, Low: Positive risk factor for coronary heart disease Performed By: #### 2 4331-1 ####[facility] LABCLIA [id number] [address] [id number] [place] [address] [place] Cholesterol in LDL [Mass/Vol] 87 mg/dL Normal <100 [facility] Comment on above: Order Comment: Ajithi men Type: BLOOD SPECIMENOrdering Facility: [facility] Address: [address] [place] [address] Result Comment: <100 mg/dL, Optimal 100-129 mg/dL, Near optimal/above optimal 130-159 mg/dL, Borderline high 160-189 mg/dL, High >189 mg/dL, Very high Secondary prevention optimal LDL Cholesterol levels are recommended to be < 70 mg/dL Performed By: #### 2 4331-1 ####[facility] LABCLIA [id number] [address] [id number] [place] [address] [place] Cholesterol in LDL/Cholesterol in HDL [Mass ratio] 1.81 {ratio} Normal <2.54 [facility] Comment on above: Order Comment: Ajithi men Type: BLOOD SPECIMENOrdering Facility: [facility] Address: [address] [place] [address] Result Comment: Skye pepper: 1. National Cholesterol Education Program ATP III Guideline At-A-Glance Quick Desk Reference: National Heart, Lung, and Blood [place]. National Institutes of Health. 2001: NIH Publication No. 01-3305. 2. An International Atherosclerosis Society position paper: global recommendations for the management of dyslipidemia: executive summary, Atherosclerosis. 2014: 232(2):410-413. Performed By: #### 2 4331-1 ####[facility] LABCLIA [id number] [address] [id number] [place] [address] [place] Cholesterol in VLDL [Mass/Vol] 14 mg/dL Normal <30 [facility] Comment on above: Order Comment: Speci men Type: BLOOD SPECIMENOrdering Facility: [facility] Address: [address] [place] [address] Performed By: #### 2 4331-1 ####[facility] LABCLIA [id number] [address] [id number] [place] [address] [place] Cholesterol non HDL [Mass/Vol] 101 mg/dL Normal <130 [facility] Comment on above: Order Comment: Speci men Type: BLOOD SPECIMENOrdering Facility: [facility] Address: [address] [place] [address] Result Comment: <130 mg/dL, Optimal 130-159 mg/dL, Near optimal/above optimal 160-189 mg/dL, Borderline high 190-219 mg/dL, High >219 mg/dL, Very high Secondary prevention optimal non HDL Cholesterol levels are recommended to be <100 mg/dL Performed By: #### 2 4331-1 ####[facility] LABCLIA [id number] [address] [id number] [place] [address] [place] Cholesterol.total/Choles terol in HDL [Mass ratio] 3.10 {ratio} Normal <5.10 [facility] Comment on above: Order Comment: Speci men Type: BLOOD SPECIMENOrdering Facility: [facility] Address: [address] [place] [address] Performed By: #### 2 4331-1 ####[facility] LABCLIA [id number] [address] [id number] [place] [address] [place] FASTING TIME 12 hrs Normal [facility] Comment on above: Order Comment: Speci men Type: BLOOD SPECIMENOrdering Facility: [facility] Address: [address] [place] [address] Performed By: #### 2 4331-1 ####[facility] LABCLIA [id number] [address] [id number] [place] [address] [place] Triglyceride [Mass/Vol] 72 mg/dL Normal <150 [facility] Comment on above: Order Comment: Speci men Type: BLOOD SPECIMENOrdering Facility: [facility] Address: [address] [place] [address] Result Comment: <150 mg/dL, Normal 150-199 mg/dL, Borderline high 200-499 mg/dL, High >499 mg/dL, Very high Performed By: #### 2 4331-1 ####[facility] LABCLIA [id number] [address] [id number] [place] [address] [place] Urine Cultureon 11-24-2023 [facility] Streptococcus agalactiae (B) [place] Count 25,000-50,000 Streptococcus agalactiae (B): REACTION Ampicillin Islt <=0.25 S Penicillin G Islt <=0.06 S cefTRIAXone Islt <=0.12 S Clindamycin Islt <=0.25 S Clindamycin.induced Susc Islt NEG Linezolid Islt <=2 S Vancomycin Islt 0.5 S Normal [facility] Comment on above: Performed By: #### M 100.2200 #### [facility] [address] [place], [address] Abdomen/Pelvis without Conto n 11-22-2023 Abdomen/Pelvis without Cont [facility] Services [address] [place] [address] Abdomen/Pelvis without Cont MR#: [id number] Acct: [id number] Name: GERTRUDE FLORES Rep #: [id number] : 1940 F 83 From: Arian Fairchild PCP: Dr. Vanessa Her MD Status: REG ER Study: Abdomen/Pelvis without Cont Date of Exam: 10/25 Exam# [id number] Ordering Dr: Silver Durbin DO [id number] STUDY: CT ABDOMEN AND PELVIS WITHOUT CONTRAST [...] Vanessa Her MD; Dr. Silver Durbin DO Roadway Designer: Signed Normal [facility] Basic Metabolic Profile (BMP )on 11-22-2023 BUN/CRE 13.6 RATIO Normal 10-[address] [facility] Comment on above: Performed By: #### L 500.4050, L501.4020, L100.0100, L501.2450 #### [facility] [address] [place], [address] CA,Total 9.4 mg/dL Normal 8.5-10.[address] [facility] Comment on above: Performed By: #### L 500.4050, L501.4020, L100.0100, L501.2450 #### [facility] [address] [place], [address] Chloride [Moles/Vol] 109 mmol/L High 98-107 [facility] Comment on above: Performed By: #### L 500.4050, L501.4020, L100.0100, L501.2450 #### [facility] [address] [place], [address] CO2 [Moles/Vol] 28.0 mmol/L Normal 21.0-32.[address] [facility] Comment on above: Performed By: #### L 500.4050, L501.4020, L100.0100, L501.2450 #### [facility] [address] [place], [address] Creatinine [Mass/Vol] 1.10 mg/dL High 0.55-1.02 [facility] Comment on above: Result Comment: The validity of the calculated GFR GFRAA in patients over 70 years has not been determined. Clinical correlation is essential. Performed By: #### L 500.4050, L501.4020, L100.0100, L501.2450 #### [facility] [address] [place], [address] ECRCL 42.75 ml/min Normal [facility] Comment on above: Performed By: #### L 500.4050, L501.4020, L100.0100, L501.2450 #### [facility] [address] [place], [address] EST GFR - AA 61 mL/min Normal >[address] [facility] Comment on above: Result Comment: Afri can Camb[place]ian GFR Calc Performed By: #### L 500.4050, L501.4020, L100.0100, L501.2450 #### [facility] [address] [place], [address] GAP 4 Low 5-[address] [facility] Comment on above: Performed By: #### L 500.4050, L501.4020, L100.0100, L501.2450 #### [facility] [address] [place], [address] GFR/1.73 sq M.predicted among non-blacks MDRD (S/P/Bld) [Vol rate/Area] 51 mL/min/{1.73_m2} Low >[address] [facility] Comment on above: Result Comment: Non- GFR Calc Performed By: #### L 500.4050, L501.4020, L100.0100, L501.2450 #### [facility] [address] [place], [address] Glucose [Mass/Vol] 117 mg/dL High 74-106 [facility] Comment on above: Result Comment: Fast ing Glucose result from 100 to 125 mg/dL suggests IMPAIRED HOMEOSTASIS per A.D.A. criteria. Performed By: #### L 500.4050, L501.4020, L100.0100, L501.2450 #### [facility] [address] [place], [address] Potassium [Moles/Vol] 3.8 mmol/L Normal 3.5-5.1 [facility] Comment on above: Performed By: #### L 500.4050, L501.4020, L100.0100, L501.2450 #### [facility] [address] [place], [address] Sodium [Moles/Vol] 141 mmol/L Normal 136-145 [facility] Comment on above: Performed By: #### L 500.4050, L501.4020, L100.0100, L501.2450 #### [facility] [address] [place], [address] Urea nitrogen [Mass/Vol] 15 mg/dL Normal 7-[address] [facility] Comment on above: Performed By: #### L 500.4050, L501.4020, L100.0100, L501.2450 #### [facility] [address] [place], [address] CBC W/Diff, Automatedon 083 -2023 Absolute Lymph 1.20 X10 3/uL Normal 0.83-4.[address] [facility] Comment on above: Performed By: #### L 500.4050, L501.4020, L100.0100, L501.2450 #### [facility] [address] [place], [address] Absolute Neut 9.5 X10 3/uL High 2.0-7.[address] [facility] Comment on above: Performed By: #### L 500.4050, L501.4020, L100.0100, L501.2450 #### [facility] [address] [place], [address] Basophils/100 WBC (Bld) 0.6 % Normal 0-1 [facility] Comment on above: Performed By: #### L 500.4050, L501.4020, L100.0100, L501.2450 #### [facility] [address] [place], [address] Eosinophils/100 WBC (Bld) 2.4 % Normal 0-[address] [facility] Comment on above: Performed By: #### L 500.4050, L501.4020, L100.0100, L501.2450 #### [facility] [address] [place], [address] Erythrocyte distribution width (RBC) [Ratio] 15.2 % High 11.6-14.[address] [facility] Comment on above: Performed By: #### L 500.4050, L501.4020, L100.0100, L501.2450 #### [facility] [address] [place], [address] Hematocrit (Bld) [Volume fraction] 34.6 % Low 37-[address] [facility] Comment on above: Performed By: #### L 500.4050, L501.4020, L100.0100, L501.2450 #### [facility] [address] [place], [address] Hemoglobin (Bld) [Mass/Vol] 10.6 g/dL Low 12.0-15.[address] [facility] Comment on above: Performed By: #### L 500.4050, L501.4020, L100.0100, L501.2450 #### [facility] [address] [place], [address] IG% 0.600 Normal 0.0-0.[address] [facility] Comment on above: Result Comment: IG% - Immature Granulocytes (promyelocytes, myelocytes and metamyelocytes) > 1% indicates that a LEFT SHIFT is Present. Performed By: #### L 500.4050, L501.4020, L100.0100, L501.2450 #### [facility] [address] [place], [address] Lymphocytes/100 WBC (Bld) 9.7 % Low 19-[address] [facility] Comment on above: Performed By: #### L 500.4050, L501.4020, L100.0100, L501.2450 #### [facility] [address] [place], [address] MCH (RBC) [Entitic mass] 27.2 pg Normal 27.0-32.[address] [facility] Comment on above: Performed By: #### L 500.4050, L501.4020, L100.0100, L501.2450 #### [facility] [address] [place], [address] MCHC (RBC) [Mass/Vol] 30.6 g/dL Low 32-36 [facility] Comment on above: Performed By: #### L 500.4050, L501.4020, L100.0100, L501.2450 #### [facility] [address] [place], [address] MCV (RBC) [Entitic vol] 88.7 fL Normal 81-99 [facility] Comment on above: Performed By: #### L 500.4050, L501.4020, L100.0100, L501.2450 #### [facility] [address] [place], [address] Monocytes/100 WBC (Bld) 10.3 % High 0-10 [facility] Comment on above: Performed By: #### L 500.4050, L501.4020, L100.0100, L501.2450 #### [facility] [address] [place], [address] Neutrophils/100 WBC (Bld) 76.4 % High 47-[address] [facility] Comment on above: Performed By: #### L 500.4050, L501.4020, L100.0100, L501.2450 #### [facility] [address] [place], [address] Nucleated RBC (Bld) [#/Vol] 0 10*3/uL Normal 0-[address] [facility] Comment on above: Performed By: #### L 500.4050, L501.4020, L100.0100, L501.2450 #### [facility] [address] [place], [address] Platelet mean volume (Bld) [Entitic vol] 10.0 fL Normal 6.2-12.[address] [facility] Comment on above: Performed By: #### L 500.4050, L501.4020, L100.0100, L501.2450 #### [facility] [address] [place], [address] Platelets (Bld) [#/Vol] 389 10*3/uL Normal 150-[address] [facility] Comment on above: Performed By: #### L 500.4050, L501.4020, L100.0100, L501.2450 #### [facility] [address] [place], [address] RBC (Bld) [#/Vol] 3.90 10*6/uL Low 4.2-5.4 [facility] Comment on above: Performed By: #### L 500.4050, L501.4020, L100.0100, L501.2450 #### [facility] [address] [place], [address] RDW SD 48.7 fl High 35.1-43.[address] [facility] Comment on above: Performed By: #### L 500.4050, L501.4020, L100.0100, L501.2450 #### [facility] [address] [place], [address] WBC (Bld) [#/Vol] 12.4 10*3/uL High 4.4-11.0 [facility] Comment on above: Performed By: #### L 500.4050, L501.4020, L100.0100, L501.2450 #### [facility] [address] [place], [address] Chest PA and Lateralon 11-21 Chest PA and Lateral [facility] Imaging Services [address] [place] [address] Chest PA and Lateral MR#: [id number] Acct: [id number] Name: GERTRUDE FLORES Rep #: [id number] : 1940 F 83 From: Arian Fairchild PCP: Dr. Vanessa Her MD Status: [facility] ER Study: Chest PA and Lateral Date of Exam: 11/22/23 Exam# [id number] Ordering Dr: Silver Durbin DO [id number] STUDY: X-RAY CHEST REASON FOR EXAM: Female, [...] Vanessa Her MD; Dr. Silver Durbin DO Roadway Designer: Signed Normal [facility] Emergency Department Summary on 11-22-2023 Emergency Department Summary [facility] Medical Records Department [address] [place] [id number] Emergency Department Summary 11/22/23 MR#: [id number] Acct: [id number] Name: GERTRUDE FLORES Rep #: [id number] : 1940 83 From: Silver Ashley PCP: [...] wounds MDM (more content not included)... Normal [facility] Urinalysis, Completeon 11-21 AMORPHOUS 1+ Normal [facility] Comment on above: Order Comment: 'TROP ' Serial specimen #1, #2 or #3: 1 Performed By: #### L 500.4050, L501.4020, L100.0100, L501.2450 #### [facility] [address] [place], [address] BACTERIA 1+ /hpf Normal None Seen [facility] Comment on above: Order Comment: 'TROP ' Serial specimen #1, #2 or #3: 1 Performed By: #### L 500.4050, L501.4020, L100.0100, L501.2450 #### [facility] [address] [place], [address] EPI,RENAL 0-5 SEEN Normal 0-[address] [facility] Comment on above: Order Comment: 'TROP ' Serial specimen #1, #2 or #3: 1 Performed By: #### L 500.4050, L501.4020, L100.0100, L501.2450 #### [facility] [address] [place], [address] Mucus Ql (Urine sed) 1+ /hpf Normal [facility] Comment on above: Order Comment: 'TROP ' Serial specimen #1, #2 or #3: 1 Performed By: #### L 500.4050, L501.4020, L100.0100, L501.2450 #### [facility] [address] [place], [address] RBC 10-25 SEEN Normal 0-[address] [facility] Comment on above: Order Comment: 'TROP ' Serial specimen #1, #2 or #3: 1 Performed By: #### L 500.4050, L501.4020, L100.0100, L501.2450 #### [facility] [address] [place], [address] WBC 50-100 SEEN Normal 0-[address] [facility] Comment on above: Order Comment: 'TROP ' Serial specimen #1, #2 or #3: 1 Performed By: #### L 500.4050, L501.4020, L100.0100, L501.2450 #### [facility] [address] [place], [address] EPI,SQUAMOUS 25-50 SEEN Normal 5-[address] [facility] Comment on above: Order Comment: 'TROP ' Serial specimen #1, #2 or #3: 1 Performed By: #### L 500.4050, L501.4020, L100.0100, L501.2450 #### [facility] [address] [place], [address] FERRITINon 11-11-2023 Ferritin [Mass/Vol] 184.0 ng/mL 14.7 - 2 05.1 ng/mL [facility] Ferritin [Mass/Vol]on 2023 Interpretation and review of laboratory results Normal [facility] HAPTOGLOBINon 11-11-2023 Haptoglobin [Mass/Vol] 319 mg/dL High 31 - 238 mg/dL [facility] Iron and Iron binding capaci ty panelon 11-11-2023 Iron [Mass/Vol] 29 ug/dL Low 41 - 186 ug/dL [facility] Iron binding capacity [Mass/Vol] 300 ug/dL 232 - 386 ug/dL [facility] Iron/TIBC [Molar ratio] 9.7 % Low 15.0 - 57.0 % [facility] LACTATE DEHYDROGENASEOrdered By: Donna Herrera on 11-11-2023 LDH [Catalytic activity/Vol] 202 U/L 135 - 214 U/L [facility] LDH [Catalytic activity/Vol] Ordered By: Donna Herrera on 11-11-2023 Interpretation and review of laboratory results Normal [facility] No Panel Informationon 11-10 Interpretation and review of laboratory results Abnormal [facility] RETICULOCYTE COUNTon 024 Reticulocytes (Bld) [#/Vol] 0.085 10*3/uL [facility] Reticulocytes (Bld) [#/Vol]o n 11-11-2023 Interpretation and review of laboratory results Abnormal [facility] Reticulocytes/100 RBC (Bld) 2.3 % High 0.4 - 2.0 % [facility] CBC W Auto Differential pane l (Bld)on 10-24-2023 Basophils (Bld) [#/Vol] 0.07 10*3/uL [facility] Basophils/100 WBC (Bld) 0.6 % C [facility] Differential cell count method Nom (Bld) Auto [facility] Eosinophils (Bld) [#/Vol] 0.19 10*3/uL [facility] Eosinophils/100 WBC (Bld) 1.7 % [facility] Erythrocyte distribution width (RBC) [Ratio] 13.7 % 11.5 - 15.0 % [facility] Hematocrit (Bld) [Volume fraction] 34.3 % Low 36.0 - 46.0 % [facility] Hemoglobin (Bld) [Mass/Vol] 10.9 g/dL Low 11.5 - 15.5 g/dL [facility] Immature granulocytes (Bld) [#/Vol] 0.07 10*3/uL [facility] Immature granulocytes/100 WBC (Bld) 0.6 % [facility] Interpretation and review of laboratory results Abnormal [facility] Lymphocytes (Bld) [#/Vol] 0.88 10*3/uL Low [facility] Lymphocytes/100 WBC (Bld) 7.7 % [facility] MCH (RBC) [Entitic mass] 29.3 pg 26. 0 - 34.0 pg [facility] MCHC (RBC) [Mass/Vol] 31.8 g/dL 30.5 - 36.0 g/dL [facility] MCV (RBC) [Entitic vol] 92.2 fL 80.0 - 100.0 fL [facility] Monocytes (Bld) [#/Vol] 0.84 10*3/uL [facility] Monocytes/100 WBC (Bld) 7.4 % C [facility] Neutrophils (Bld) [#/Vol] 9.35 10*3/uL High [facility] Neutrophils/100 WBC (Bld) 82.0 % [facility] Nucleated RBC (Bld) [#/Vol] [facility] Nucleated RBC/100 WBC (Bld) [Ratio] 0.0 % /100 WBC [facility] Platelet mean volume (Bld) [Entitic vol] 10.7 fL 9.0 - 12.7 fL [facility] Platelets (Bld) [#/Vol] 369 10*3/uL [facility] RBC (Bld) [#/Vol] 3.72 10*6/uL Low 3.90 - 5.2 0 m/uL [facility] WBC (Bld) [#/Vol] 11.40 10*3/uL [facility] Abdomen/Pelvis W IV Cont ONL Yon 08-19-2023 Abdomen/Pelvis W IV Cont ONLY [facility] Imaging Services [address] [place] [address] Abdomen/Pelvis W IV Cont ONLY MR#: [id number] Acct: [id number] Name: GERTRUDE FLORES Rep #: [id number] : 1940 F 83 From: Stan lagos MD PCP: Dr. Vanessa Her MD Status: REG ER Study: Abdomen/Pelvis W IV Cont ONLY Date of Exam: Exam# [id number] Ordering Dr: Fabio Orozco MD [id number] EXAM: CT ABDOMEN AND PELVIS WITH INTRAVENOUS [...] Fabio Orozco MD; Dr. Vanessa Her MD [employer]way Designer: Signed Normal [facility] CBC W/Diff, Automatedon 05- Absolute Lymph 1.88 X10 3/uL Normal 0.83-4.[address] [facility] Comment on above: Performed By: #### L 500.4050, L501.4020, L100.0100, L501.2450 #### [facility] [address] [place], [address] Absolute Neut 4.2 X10 3/uL Normal 2.0-7.[address] [facility] Comment on above: Performed By: #### L 500.4050, L501.4020, L100.0100, L501.2450 #### [facility] [address] [place], [address] Basophils/100 WBC (Bld) 0.8 % Normal 0-1 [facility] Comment on above: Performed By: #### L 500.4050, L501.4020, L100.0100, L501.2450 #### [facility] [address] [place], [address] Eosinophils/100 WBC (Bld) 3.6 % Normal 0-[address] [facility] Comment on above: Performed By: #### L 500.4050, L501.4020, L100.0100, L501.2450 #### [facility] [address] [place], [address] Erythrocyte distribution width (RBC) [Ratio] 12.7 % Normal 11.6-14.[address] [facility] Comment on above: Performed By: #### L 500.4050, L501.4020, L100.0100, L501.2450 #### [facility] [address] [place], [address] Hematocrit (Bld) [Volume fraction] 40.3 % Normal 37-[address] [facility] Comment on above: Performed By: #### L 500.4050, L501.4020, L100.0100, L501.2450 #### [facility] [address] [place], [address] Hemoglobin (Bld) [Mass/Vol] 12.9 g/dL Normal 12.0-15.[address] [facility] Comment on above: Performed By: #### L 500.4050, L501.4020, L100.0100, L501.2450 #### [facility] [address] [place], [address] IG% 0.300 Normal 0.0-0.[address] [facility] Comment on above: Result Comment: IG% - Immature Granulocytes (promyelocytes, myelocytes and metamyelocytes) > 1% indicates that a LEFT SHIFT is Present. Performed By: #### L 500.4050, L501.4020, L100.0100, L501.2450 #### [facility] [address] [place], [address] Lymphocytes/100 WBC (Bld) 26.2 % Normal 19-[address] [facility] Comment on above: Performed By: #### L 500.4050, L501.4020, L100.0100, L501.2450 #### [facility] [address] [place], [address] MCH (RBC) [Entitic mass] 28.8 pg Normal 27.0-32.[address] [facility] Comment on above: Performed By: #### L 500.4050, L501.4020, L100.0100, L501.2450 #### [facility] [address] [place], [address] MCHC (RBC) [Mass/Vol] 32.0 g/dL Normal 32-36 [facility] Comment on above: Performed By: #### L 500.4050, L501.4020, L100.0100, L501.2450 #### [facility] [address] [place], [address] MCV (RBC) [Entitic vol] 90.0 fL Normal 81-99 [facility] Comment on above: Performed By: #### L 500.4050, L501.4020, L100.0100, L501.2450 #### [facility] [address] [place], [address] Monocytes/100 WBC (Bld) 10.2 % High 0-10 [facility] Comment on above: Performed By: #### L 500.4050, L501.4020, L100.0100, L501.2450 #### [facility] [address] [place], [address] Neutrophils/100 WBC (Bld) 58.9 % Normal 47-[address] [facility] Comment on above: Performed By: #### L 500.4050, L501.4020, L100.0100, L501.2450 #### [facility] [address] [place], [address] Nucleated RBC (Bld) [#/Vol] 0 10*3/uL Normal 0-[address] [facility] Comment on above: Performed By: #### L 500.4050, L501.4020, L100.0100, L501.2450 #### [facility] [address] [place], [address] Platelet mean volume (Bld) [Entitic vol] 10.4 fL Normal 6.2-12.[address] [facility] Comment on above: Performed By: #### L 500.4050, L501.4020, L100.0100, L501.2450 #### [facility] [address] [place], [address] Platelets (Bld) [#/Vol] 249 10*3/uL Normal 150-[address] [facility] Comment on above: Performed By: #### L 500.4050, L501.4020, L100.0100, L501.2450 #### [facility] [address] [place], [address] RBC (Bld) [#/Vol] 4.48 10*6/uL Normal 4.2-5.4 [facility] Comment on above: Performed By: #### L 500.4050, L501.4020, L100.0100, L501.2450 #### [facility] [address] [place], [address] RDW SD 42.2 fl Normal 35.1-43.[address] [facility] Comment on above: Performed By: #### L 500.4050, L501.4020, L100.0100, L501.2450 #### [facility] [address] [place], [address] WBC (Bld) [#/Vol] 7.2 10*3/uL Normal 4.4-11.0 [facility] Comment on above: Performed By: #### L 500.4050, L501.4020, L100.0100, L501.2450 #### [facility] [address] [place], [address] Comprehensive Metabolic Prof [facility] 08-19-2023 Albumin [Mass/Vol] 3.6 g/dL Normal 3.2-5.0 [facility] Comment on above: Order Comment: 'TROP ' Serial specimen #1, #2 or #3: 1 Performed By: #### L 500.4050, L501.4020, L100.0100, L501.2450 #### [facility] [address] [place], [address] Albumin/Globulin [Mass ratio] 1.0 {ratio} Normal 0.9-2.[address] [facility] Comment on above: Order Comment: 'TROP ' Serial specimen #1, #2 or #3: 1 Performed By: #### L 500.4050, L501.4020, L100.0100, L501.2450 #### [facility] [address] [place], [address] ALK P 73 U/L Normal 45-[address] [facility] Comment on above: Order Comment: 'TROP ' Serial specimen #1, #2 or #3: 1 Performed By: #### L 500.4050, L501.4020, L100.0100, L501.2450 #### [facility] [address] [place], [address] ALT [Catalytic activity/Vol] 13 U/L Normal 13-[address] [facility] Comment on above: Order Comment: 'TROP ' Serial specimen #1, #2 or #3: 1 Performed By: #### L 500.4050, L501.4020, L100.0100, L501.2450 #### [facility] [address] [place], [address] AST [Catalytic activity/Vol] 12 U/L Low 15-[address] [facility] Comment on above: Order Comment: 'TROP ' Serial specimen #1, #2 or #3: 1 Performed By: #### L 500.4050, L501.4020, L100.0100, L501.2450 #### [facility] [address] [place], [address] Bilirubin [Mass/Vol] 0.50 mg/dL Normal 0.20-1.00 [facility] Comment on above: Order Comment: 'TROP ' Serial specimen #1, #2 or #3: 1 Result Comment: For patients on eltrombopag therapy, use of Dimension [place] TBIL is not recommended. Performed By: #### L 500.4050, L501.4020, L100.0100, L501.2450 #### [facility] [address] [place], [address] BUN/CRE 18.9 RATIO Normal 10-[address] [facility] Comment on above: Order Comment: 'TROP ' Serial specimen #1, #2 or #3: 1 Performed By: #### L 500.4050, L501.4020, L100.0100, L501.2450 #### [facility] [address] [place], [address] CA,Total 10.2 mg/dL High 8.5-10.[address] [facility] Comment on above: Order Comment: 'TROP ' Serial specimen #1, #2 or #3: 1 Performed By: #### L 500.4050, L501.4020, L100.0100, L501.2450 #### [facility] [address] [place], [address] Chloride [Moles/Vol] 106 mmol/L Normal 98-107 [facility] Comment on above: Order Comment: 'TROP ' Serial specimen #1, #2 or #3: 1 Performed By: #### L 500.4050, L501.4020, L100.0100, L501.2450 #### [facility] [address] [place], [address] CO2 [Moles/Vol] 27.0 mmol/L Normal 21.0-32.[address] [facility] Comment on above: Order Comment: 'TROP ' Serial specimen #1, #2 or #3: 1 Performed By: #### L 500.4050, L501.4020, L100.0100, L501.2450 #### [facility] [address] [place], [address] Creatinine [Mass/Vol] 1.06 mg/dL High 0.55-1.02 [facility] Comment on above: Order Comment: 'TROP ' Serial specimen #1, #2 or #3: 1 Result Comment: The validity of the calculated GFR GFRAA in patients over 70 years has not been determined. Clinical correlation is essential. Performed By: #### L 500.4050, L501.4020, L100.0100, L501.2450 #### [facility] [address] [place], [address] ECRCL 43.48 ml/min Normal [facility] Comment on above: Order Comment: 'TROP ' Serial specimen #1, #2 or #3: 1 Performed By: #### L 500.4050, L501.4020, L100.0100, L501.2450 #### [facility] [address] [place], [address] EST GFR - AA 64 mL/min Normal >[address] [facility] Comment on above: Order Comment: 'TROP ' Serial specimen #1, #2 or #3: 1 Result Comment: Afri can Camb[place] GFR Calc Performed By: #### L 500.4050, L501.4020, L100.0100, L501.2450 #### [facility] [address] [place], [address] GAP 7 Normal 5-[address] [facility] Comment on above: Order Comment: 'TROP ' Serial specimen #1, #2 or #3: 1 Performed By: #### L 500.4050, L501.4020, L100.0100, L501.2450 #### [facility] [address] [place], [address] GFR/1.73 sq M.predicted among non-blacks MDRD (S/P/Bld) [Vol rate/Area] 53 mL/min/{1.73_m2} Low >[address] [facility] Comment on above: Order Comment: 'TROP ' Serial specimen #1, #2 or #3: 1 Result Comment: Non- GFR Calc Performed By: #### L 500.4050, L501.4020, L100.0100, L501.2450 #### [facility] [address] [place], [address] Globulin (S) [Mass/Vol] 3.5 g/dL Normal 2.2-4.2 [facility] Comment on above: Order Comment: 'TROP ' Serial specimen #1, #2 or #3: 1 Performed By: #### L 500.4050, L501.4020, L100.0100, L501.2450 #### [facility] [address] [place], [address] Glucose [Mass/Vol] 105 mg/dL Normal 74-106 [facility] Comment on above: Order Comment: 'TROP ' Serial specimen #1, #2 or #3: 1 Result Comment: Fast ing Glucose result from 100 to 125 mg/dL suggests IMPAIRED HOMEOSTASIS per A.D.A. criteria. Performed By: #### L 500.4050, L501.4020, L100.0100, L501.2450 #### [facility] [address] [place], [address] Potassium [Moles/Vol] 3.9 mmol/L Normal 3.5-5.1 [facility] Comment on above: Order Comment: 'TROP ' Serial specimen #1, #2 or #3: 1 Performed By: #### L 500.4050, L501.4020, L100.0100, L501.2450 #### [facility] [address] [place], [address] Sodium [Moles/Vol] 140 mmol/L Normal 136-145 [facility] Comment on above: Order Comment: 'TROP ' Serial specimen #1, #2 or #3: 1 Performed By: #### L 500.4050, L501.4020, L100.0100, L501.2450 #### [facility] [address] [place], [address] T PROT 7.1 g/dL Normal 6.4-8.[address] [facility] Comment on above: Order Comment: 'TROP ' Serial specimen #1, #2 or #3: 1 Performed By: #### L 500.4050, L501.4020, L100.0100, L501.2450 #### [facility] [address] [place], [address] Urea nitrogen [Mass/Vol] 20 mg/dL High 7-[address] [facility] Comment on above: Order Comment: 'TROP ' Serial specimen #1, #2 or #3: 1 Performed By: #### L 500.4050, L501.4020, L100.0100, L501.2450 #### [facility] [address] [place], [address] Emergency Department Summary on 08-19-2023 Emergency Department Summary [facility] Medical Records Department [address] [place] [address] Emergency Department Summary 08/19/23 MR#: [id number] Acct: [id number] Name: GERTRUDE FLORES Rep #: [id number] : 1940 83 From: Fabio Orozco MD [...] alleviating factors. Past abdominal surgery includes cholecystectomy. [facility] Medical History Kidney disease Hypertension Dementia Home [...] safely home with follow-up. She will start jlac-vkx-sjgowen MiraLAX and stool softeners. Follow-up with her primary care provider. Return instructions were reviewed. Disposition is discharged home in stable condition. History Record Review Discussion w/independent historian: Patient and Family () Lab Data Attestation: I reviewed the patient's lab results. Labs: (more content not included)... Normal [facility] L501.4020on 08-19-2023 TROPONIN-I HS 7 pg/mL Normal 3.0-54.[address] [facility] Comment on above: Order Comment: 'TROP ' Serial specimen #1, #2 or #3: 1 Result Comment: Plea se Note: New Test Units and Gender Specific Reference Ranges. For more information see Policy Stat Procedure [place] High Sensitivity Troponin (TNIH) and attachments. Performed By: #### L 500.4050, L501.4020, L100.0100, L501.2450 #### [facility] [address] [place], [address] Lipaseon 08-19-2023 Lipase [Catalytic activity/Vol] 62 U/L Normal 13-[address] [facility] Comment on above: Order Comment: 'TROP ' Serial specimen #1, #2 or #3: 1 Result Comment: Demond kramer note: LIPASE revised reference range effective 22. New Lipase methodology. Expected to produce lower values than the previous assay method. NEW Reference Range: 13 - 75 U/L Performed By: #### L 500.4050, L501.4020, L100.0100, L501.2450 #### [facility] [address] [place], [address] Urinalysis, Completeon 08-18 RBC 0-5 SEEN Normal 0-[address] [facility] Comment on above: Order Comment: 'TROP ' Serial specimen #1, #2 or #3: 1 Performed By: #### L 500.4050, L501.4020, L100.0100, L501.2450 #### [facility] [address] [place], [address] WBC 0-5 SEEN Normal 0-[address] [facility] Comment on above: Order Comment: 'TROP ' Serial specimen #1, #2 or #3: 1 Performed By: #### L 500.4050, L501.4020, L100.0100, L501.2450 #### [facility] [address] [place], [address] BACTERIA 0 SEEN Normal None Seen [facility] Comment on above: Order Comment: 'TROP ' Serial specimen #1, #2 or #3: 1 Performed By: #### L 500.4050, L501.4020, L100.0100, L501.2450 #### [facility] [address] [place], [address] EPI,SQUAMOUS 0 SEEN Normal 5-[address] [facility] Comment on above: Order Comment: 'TROP ' Serial specimen #1, #2 or #3: 1 Performed By: #### L 500.4050, L501.4020, L100.0100, L501.2450 #### [facility] [address] [place], [address] Mucus Ql (Urine sed) 0 SEEN Normal [facility] Comment on above: Order Comment: 'TROP ' Serial specimen #1, #2 or #3: 1 Performed By: #### L 500.4050, L501.4020, L100.0100, L501.2450 #### [facility] [address] [place], [address] EKGon 03-08-2023 Electrocardiogram Ventricular Rate : 6 2 BPM Atrial Rate : 62 BPM P-R Interval : 168 ms QRS Duration : 98 ms Q-T Interval : 412 ms QTC Calculation(Bazett) : 418 ms Calculated P Lincoln : 85 degrees Calculated R [place] : 35 degrees Calculated T Lincoln : 40 degrees SINUS RHYTHM WITH MARKED SINUS ARRHYTHMIA OTHERWISE NORMAL ECG NO PREVIOUS ECGS AVAILABLE Confirmed by MD CROCKER GREGORY () on 03/12/2023 3:28:36 PM NAME : GERTRUDE FLORES PID : [id number] : 1940 Gender : Female Race : ORD : Procedure Date : Mar 07 2023 22:35:36 Edit Date : Mar 12 2023 15:28:42 Diagnosis: SINUS RHYTHM WITH MARKED SINUS ARRHYTHMIA OTHERWISE NORMAL ECG NO PREVIOUS ECGS AVAILABLE Confirmed by MD CROCKER GREGORY () on 03/12/2023 3:28:36 PM Test Reason : Location : [address] [place] [address] Overread By : MD CROCKER GREGORY Edited By : MD CROCKER GREGORY Referred By : , Acquired by : Rozina Luis, [facility] 03-07-2023 OV Office Visit (CARMED ) GERTRUDE FLORES ([id number]) 1940 F Date Time Provider Department 03/07/23 10:20 AM ROSSY CROCKER REMI During your visit today, we recorded the following information about you: Pulse Blood pressure Weight Height 62/minute 128/82 76.7 kg 1.676 m Rossy Crocker, DO 03/07/2023 2:03 PM Signed [facility] OUTPATIENT VISIT DATE March 07, 2023 PRIMARY CARE PHYSICIAN: Vanessa Her [address] [place] [address] HISTORY OF PRESENT ILLNESS: Ms. Flores is [...] ABDOMINAL HYSTERECT W/WO RMVL TUBE OVARY Hysterectomy, HSEN Social History Tobacco Use Smoking status: Former [...] excluded but felt less likely. Correlate clinically. Roadway Designer: COOPER Transcribe Date/Time: Oct 22 2022 11:33A Dictated by : BETTE JOHNSON MD This examination was interpreted and the report reviewed and electronically signed by: BETTE JOHNSON MD on Oct 22 2022 11:35AM EST [id number] N Normal [facility] No Panel Informationon 11-21 [facility] MRI BRAIN WO/W IVCONon 10-24 [facility] MRI 3D POST PROCESSINGon MRI 3D POST PROCESSING * * *Final Report * * * DATE OF EXAM: Jul 11 2021 12:35PM [facility] 0280 - MRI 3D POST PROCESSING / [...] dementia protocol and 3-D post-processing using the NeuroBiot[employer] software at an independent workstation with concurrent [...] = Focal Lesions 2 = Beginning of [place] 3 = Diffuse Involvement of Entire Region [...] the report reviewed and electronically signed by: JUNA RASHID MD on Jul 11 2021 2:26PM EST [id number] N [facility] MRI BRAIN W QUANT WO IVCONon 07-11-2021 MRI BRAIN W QUANT WO IVCON * * *Final Report* * * DATE OF EXAM: Jul 11 2021 12:35PM [facility] 3015 - MRI BRAIN W QUANT WO [...] dementia protocol and 3-D post-processing using the Visterra software at an independent workstation with concurrent [...] = Focal Lesions 2 = Beginning of [place] 3 = Diffuse Involvement of Entire Region [...] 11 2021 2:26PM EST [id number] N Normal [facility] Absolute lymphocyte counton 06-11-2021 Lymphocytes Auto (Unsp spec) [#/Vol] 0.76 10*3/uL 0.83-4.[address] [facility] Work Phone: Basophil percentageon 2021 Basophil percentage 0-5 SEEN /hpf [facility] Work Phone: Basophils/100 WBC (Bld) 0.4 % 0-1 [facility] Work Phone: Bilirubin [Mass/Vol] 0.60 mg/dL 0.20-1.00 [facility] Work Phone: Comment on above: For patients on eltr ombopag therapy, use of Dimension [place] TBIL is not recommended. Chloride [Moles/Vol] 108 mmol/L 98-107 [facility] Work Phone: Eosinophils/100 WBC (Bld) 0.9 % 0-[address] [facility] Work Phone: Glucose [Mass/Vol] 131 mg/dL 74-106 [facility] Work Phone: Comment on above: Fasting Glucose resu lt greater than or equal to 126 mg/dL suggests DIABETES MELLITUS per A.D.A. criteria. Neutrophils (Bld) [#/Vol] 5.8 10*3/uL 2.0-7.[address] [facility] Work Phone: Neutrophils/100 WBC (Bld) 82.4 % 47-[address] [facility] Work Phone: Potassium [Moles/Vol] 3.7 mmol/L 3.5-5.1 [facility] Work Phone: Protein [Mass/Vol] 7.3 g/dL 6.4-8.2 [facility] Work Phone: Sodium [Moles/Vol] 139 mmol/L 136-145 [facility] Work Phone: WBC (Bld) [#/Vol] 7.0 10*3/uL 4.4-11.0 [facility] Work Phone: Bilirubin Test strip Ql (U)o n 06-11-2021 Bilirubin Ql (U) Negative Negative [facility] Work Phone: Blood erythrocytes count (nu mber/volume)on 06-11-2021 RBC (Bld) [#/Vol] 4.49 10*6/uL 4.2-5.4 [facility] Work Phone: Blood hemoglobin measurement (mass/volume)on 06-11-2021 Hemoglobin (Bld) [Mass/Vol] 13.4 g/dL 12.0-15.[address] [facility] Work Phone: Blood lymphocytes/100 leukoc yteson 06-11-2021 Lymphocytes/100 WBC (Bld) 10.8 % 19-[address] [facility] Work Phone: Blood monocytes/100 leukocyt eson 06-11-2021 Monocytes/100 WBC (Bld) 5.1 % 0-10 [facility] Work Phone: Blood platelet mean volumeon 06-11-2021 Platelet mean volume (Bld) [Entitic vol] 10.7 fL 6.2-12.[address] [facility] Work Phone: [phone] Determination of erythrocyte mean corpuscular volume (MCV)on 06-11-2021 MCV (RBC) [Entitic vol] 90.6 fL 81-99 [facility] Work Phone: [phone] Hematocrit Auto (Bld) [Volum e fraction]on 06-11-2021 Hematocrit (Bld) [Volume fraction] 40.7 % 37-[address] [facility] Work Phone: [phone] Ketones Test strip Ql (U)on 06-11-2021 Ketones Ql (U) 5 mg/dl Negative [facility] Work Phone: [phone] Laboratory - Chemistry and C hemistry - challengeon 06-11-2021 ALP [Catalytic activity/Vol] 78 U/L 45-[address] [facility] Work Phone: [phone] ALT [Catalytic activity/Vol] 17 U/L 13-[address] [facility] Work Phone: [phone] CO2 [Moles/Vol] 28.0 mmol/L 21.0-32.[address] [facility] Work Phone: [phone] Globulin (S) [Mass/Vol] 3.6 g/dL 2.2-4.2 [facility] Work Phone: [phone] Lipase [Catalytic activity/Vol] 334 U/L 73-[address] [facility] Work Phone: [phone] Urea nitrogen/Creatinine [Mass ratio] 15.6 mg/mg 10-[address] [facility] Work Phone: [phone] Laboratory - Hematology and Cell countson 06-11-2021 Erythrocyte distribution width (RBC) [Entitic vol] 42.5 fL 35.1-43.[address] [facility] Work Phone: [phone] Erythrocyte distribution width (RBC) [Ratio] 12.8 % 11.6-14.[address] [facility] Work Phone: [phone] Immature granulocytes/100 WBC (Bld) 0.400 % 0.0-0.[address] [facility] Work Phone: Comment on above: IG% - Immature Granu locytes (promyelocytes, myelocytes and metamyelocytes) > 1% indicates that a LEFT SHIFT is Present. MCH (RBC) [Entitic mass] 29.8 pg 27.0-32.[address] [facility] Work Phone: Nucleated RBC/100 WBC (Bld) [Ratio] 0 % 0-[address] [facility] Work Phone: [phone] MCHC Auto (RBC) [Mass/Vol]on 06-11-2021 MCHC (RBC) [Mass/Vol] 32.9 g/dL 32-36 [facility] Work Phone: Mucus LM Ql (Urine sed)on Mucus Ql (Urine sed) 0 SEEN /hpf [facility] Work Phone: [phone] Nitrite Test strip Ql (U)on 06-11-2021 Nitrite Ql (U) Negative Negative [facility] Work Phone: No Panel Informationon 06-11 Estimated Creatinine Clearance Calc 42.76 ml/min [facility] Work Phone: Estimated GFR (MDRD) Amer 72 mL/min >[address] [facility] Work Phone: Comment on above: GFR Calc Estimated GFR (MDRD) Non-Af Amer 59 mL/min >[address] [facility] Work Phone: [phone] Comment on above: Non- GFR Calc Thyroid Stimulating Hormone (TSH) 0.16 uIU/mL 0.358-3.[address] [facility] Work Phone: [phone] Troponin I High Sensitivity 6 pg/mL 3.0-54.[address] [facility] Work Phone: [phone] Comment on above: Please Note: New Sherly t Units and Gender Specific Reference Ranges. For more information see Policy Stat Procedure [place] High Sensitivity Troponin (TNIH) and attachments. Platelets bldon 06-11-2021 Platelets (Bld) [#/Vol] 242 10*3/uL 150-[address] [facility] Work Phone: Protein Test strip Ql (U)on 06-11-2021 Protein Ql (U) Negative Negative [facility] Work Phone: [phone] Serum or plasma albumin derrick urement (mass/volume)on 06-11-2021 Albumin [Mass/Vol] 3.7 g/dL 3.2-5.0 [facility] Work Phone: [phone] Serum or plasma albumin/glob ulin mass ratioon 06-11-2021 Albumin/Globulin [Mass ratio] 1.0 {ratio} 0.9-2.[address] [facility] Work Phone: [phone] Serum or plasma calcium derrick urement (mass/volume)on 06-11-2021 Calcium [Mass/Vol] 8.7 mg/dL 8.5-10.1 [facility] Work Phone: [phone] Serum or plasma creatinine m easurement (mass/volume)on 06-11-2021 Creatinine [Mass/Vol] 0.96 mg/dL 0.55-1.02 [facility] Work Phone: Comment on above: The validity of the calculated GFR & GFRAA in patients over 70 years has not been determined. Clinical correlation is essential. Serum or plasma urea nitroge n measurement (mass/volume)on 06-11-2021 Urea nitrogen [Mass/Vol] 15 mg/dL 7-[address] [facility] Work Phone: [phone] Squamous epithelial cells de tection in urine sediment by light microscopyon 06-11-2021 Epithelial cells.squamous LM Ql (Urine sed) 0 SEEN /hpf [facility] Work Phone: [phone] Thin prep Papanicolaou smear with manual screeningon 06-11-2021 Thin prep Papanicolaou smear with manual screening 15 U/L 15-[address] [facility] Work Phone: [phone] Thin prep Papanicolaou smear with manual screening 3 5-[address] [facility] Work Phone: [phone] Urine blood detectionon 05-24-2021 RBC Ql (U) 50 /ul Negative [facility] Work Phone: RBC Ql (U) 0-5 SEEN /hpf [facility] Work Phone: Urine clarityon 06-11-2021 Clarity (U) Clear Clear [facility] Work Phone: Urine color determinationon 06-11-2021 Color (U) Yellow Yellow [facility] Work Phone: Urine glucose detectionon Glucose Ql (U) Normal mg/dl Normal [facility] Work Phone: Urine leukocyte esterase det ection by dipstickon 06-11-2021 Leukocyte esterase Test strip Ql (U) 25 /ul Negative [facility] Work Phone: Urine pHon 06-11-2021 pH (U) 6.0 [pH] [facility] Work Phone: Urine sediment bacteria coun t by microscopy (number/high power field)on 06-11-2021 Bacteria LM.HPF (Urine sed) [#/Area] 0 /[HPF] None Seen [facility] Work Phone: Urine specific gravity measu rementon 06-11-2021 Specific gravity (U) [Rel density] 1.[address] [facility] Work Phone: Urobilinogen Auto test strip Ql (U)on 06-11-2021 Urobilinogen Ql (U) Normal mg/dl Normal [facility] Work Phone: Vital Signs Date Time Vital Sign Value Performing Clinician Facility 10-16-2024 09:57-0400 Body mass index (BMI) [Ratio] 30.05 kg/m2 Vanessa Her MD Work Phone: [facility] 10-16-2024 09:57-0400 Body weight 81.92 kg Vanessa Her MD Work Phone: [facility] 10-16-2024 09:57-0400 Diastolic blood pressure 77 mm[Hg] Vanessa Her MD Work Phone: [facility] 10-16-2024 09:57-0400 Heart rate 66 /min Vanessa Her MD Work Phone: [facility] 10-16-2024 09:57-0400 Respiratory rate 16 /min Vanessa Her MD Work Phone: [facility] 10-16-2024 09:57-0400 Systolic blood pressure 135 mm[Hg] Vanessa Her MD Work Phone: [facility] 06-10-2024 11:28-0400 Body height 165.1 cm Juana Prabhakar RADIO RECORDER.COUPON REDEMPTION CLERK Work Phone: [facility] 06-10-2024 11:28-0400 Body mass index (BMI) [Ratio] 30.45 kg/m2 Juana Prabhakar RADIO RECORDER.COUPON REDEMPTION CLERK Work Phone: [facility] 06-10-2024 11:28-0400 Body weight 83 kg Juana Prabhakar RADIO RECORDER.COUPON REDEMPTION CLERK Work Phone: [facility] 06-10-2024 11:28-0400 Diastolic blood pressure 74 mm[Hg] Juana Prabhakar RADIO RECORDER.COUPON REDEMPTION CLERK Work Phone: [facility] 06-10-2024 11:28-0400 Heart rate 61 /min Juana Prabhakar RADIO RECORDER.COUPON REDEMPTION CLERK Work Phone: [facility] 06-10-2024 11:28-0400 SaO2% (BldA) [Mass fraction] 99 % uJana Prabhakar RADIO RECORDER.COUPON REDEMPTION CLERK Work Phone: [facility] 06-10-2024 11:28-0400 Systolic blood pressure 132 mm[Hg] Juana Prabhakar RADIO RECORDER.COUPON REDEMPTION CLERK Work Phone: [facility] 05-19-2024 09:03-0500 Body height 165.1 cm Vanesas Her MD Work Phone: [facility] 05-19-2024 09:03-0500 Body mass index (BMI) [Ratio] 30.29 kg/m2 Vanessa Her MD Work Phone: [facility] 05-19-2024 09:03-0500 Body weight 82.56 kg Vanessa Her MD Work Phone: [facility] 05-19-2024 09:03-0500 Diastolic blood pressure 88 mm[Hg] Vanessa Her MD Work Phone: [facility] 05-19-2024 09:03-0500 Heart rate 67 /min Vanessa Her MD Work Phone: [facility] 05-19-2024 09:03-0500 SaO2% (BldA) [Mass fraction] 98 % Vanessa Her MD Work Phone: [facility] 05-19-2024 09:03-0500 Systolic blood pressure 138 mm[Hg] Vanessa Her MD Work Phone: [facility] 03-09-2024 10:58-0500 Body height 165.1 cm Rossy Crocker DO Work Phone: [facility] 03-09-2024 10:58-0500 Body mass index (BMI) [Ratio] 28.51 kg/m2 Rossy Crocker DO Work Phone: [facility] 03-09-2024 10:58-0500 Body weight 77.7 kg Rossy Crocker DO Work Phone: [facility] 03-09-2024 10:58-0500 Diastolic blood pressure 74 mm[Hg] Rossy Crocker DO Work Phone: [facility] 03-09-2024 10:58-0500 Heart rate 83 /min Rossy Crocker DO Work Phone: [facility] 03-09-2024 10:58-0500 SaO2% (BldA) [Mass fraction] 98 % Rossy Crocker DO Work Phone: [facility] 03-09-2024 10:58-0500 Systolic blood pressure 126 mm[Hg] Rossy Crocker DO Work Phone: [facility] 02-17-2024 14:03-0500 Body mass index (BMI) [Ratio] 29.95 kg/m2 Vanessa Her MD Work Phone: [facility] 02-17-2024 14:03-0500 Body weight 81.65 kg Vanessa Her MD Work Phone: [facility] 02-17-2024 14:03-0500 Diastolic blood pressure 81 mm[Hg] Vanessa Her MD Work Phone: [facility] 02-17-2024 14:03-0500 Heart rate 62 /min Vanessa Her MD Work Phone: [facility] 02-17-2024 14:03-0500 Respiratory rate 16 /min Vanessa Her MD Work Phone: [facility] 02-17-2024 14:03-0500 Systolic blood pressure 149 mm[Hg] Vanessa Her MD Work Phone: [facility] 11-13-2023 07:38-0400 Body height 165.1 cm Vanessa Her MD Work Phone: [facility] 11-13-2023 07:38-0400 Body mass index (BMI) [Ratio] 30.79 kg/m2 Vanessa Her MD Work Phone: [facility] 11-13-2023 07:38-0400 Body weight 83.92 kg Vanessa Her MD Work Phone: [facility] 11-13-2023 07:38-0400 Diastolic blood pressure 70 mm[Hg] Vanessa Her MD Work Phone: [facility] 11-13-2023 07:38-0400 Heart rate 57 /min Vanessa Her MD Work Phone: [facility] 11-13-2023 07:38-0400 Respiratory rate 16 /min Vanessa Her MD Work Phone: [facility] 11-13-2023 07:38-0400 Systolic blood pressure 124 mm[Hg] Vanessa Her MD Work Phone: [facility] 10-24-2023 09:19-0400 Body mass index (BMI) [Ratio] 28.92 kg/m2 Vanessa Her MD Work Phone: [facility] 10-24-2023 09:19-0400 Body weight 81.28 kg Vanessa Her MD Work Phone: [facility] 10-24-2023 09:19-0400 Diastolic blood pressure 68 mm[Hg] Vanessa Her MD Work Phone: [facility] 10-24-2023 09:19-0400 Heart rate 65 /min Vanessa Her MD Work Phone: [facility] 10-24-2023 09:19-0400 SaO2% (BldA) [Mass fraction] 98 % Vanessa Her MD Work Phone: [facility] 10-24-2023 09:19-0400 Systolic blood pressure 128 mm[Hg] Vanessa Her MD Work Phone: [facility] 05-03-2023 11:00-0500 Diastolic blood pressure 70 mm[Hg] Tanna Lemon PT [facility] 05-03-2023 11:00-0500 Systolic blood pressure 123 mm[Hg] Tanna Lemon PT [facility] 2023 12:29-0500 Body temperature 97.81 [degF] Kinga Slabaugh PA-C Work Phone: [facility] 2023 12:29-0500 Body weight 79.83 kg Kinga Slabaugh PA-C Work Phone: [facility] 2023 12:29-0500 Diastolic blood pressure 85 mm[Hg] Kinga Slabaugh PA-C Work Phone: [facility] 2023 12:29-0500 Heart rate 69 /min Kinga Slabaugh PA-C Work Phone: [facility] 2023 12:29-0500 Respiratory rate 18 /min Kinga Slabaugh PA-C Work Phone: [facility] 2023 12:29-0500 SaO2% (BldA) [Mass fraction] 99 % Kinga Slabaugh PA-C Work Phone: [facility] 2023 12:29-0500 Systolic blood pressure 171 mm[Hg] Kinga Melendrez PA-C Work Phone: [facility] 03-07-2023 [id number] Body height 167.6 cm Rossy Crocker DO Work Phone: [facility] 03-07-2023 10:26-0500 Body weight 76.66 kg Rossy Crocker DO Work Phone: [facility] 03-07-2023 10:26-0500 Diastolic blood pressure 82 mm[Hg] Rossy Crocker DO Work Phone: [facility] 03-07-2023 10:26-0500 Heart rate 62 /min Rossy Crocker DO Work Phone: [facility] 03-07-2023 10:26-0500 SaO2% (BldA) [Mass fraction] 97 % Rossy Crocker DO Work Phone: [facility] 03-07-2023 [id number] Systolic blood pressure 128 mm[Hg] Rossy Crocker DO Work Phone: [facility] 11-13-2022 13:11-0400 Body height 167.6 cm Tejinder Funes MD Work Phone: [facility] 11-13-2022 13:11-0400 Body temperature 97.2 [degF] Tejinder Funes MD Work Phone: [facility] 11-13-2022 13:11-0400 Body weight 81.19 kg Tejinder Funes MD Work Phone: [facility] 11-13-2022 13:11-0400 Diastolic blood pressure 64 mm[Hg] Tejinder Funes MD Work Phone: [facility] 11-13-2022 13:11-0400 Heart rate 86 /min Tejinder Funes MD Work Phone: [facility] 11-13-2022 13:11-0400 SaO2% (BldA) [Mass fraction] 100 % Tejinder Funes MD Work Phone: [facility] 11-13-2022 13:11-0400 Systolic blood pressure 118 mm[Hg] Tejinder Funes MD Work Phone: [facility] 07-10-2022 08:39-0400 Body height 167.6 cm Oneyda Ramos MD Work Phone: [facility] 07-10-2022 08:39-0400 Body temperature 96.8 [degF] Oneyda Ramos MD Work Phone: [facility] 07-10-2022 08:39-0400 Body weight 84.28 kg Oneyda Ramos MD Work Phone: [facility] 07-10-2022 08:39-0400 Diastolic blood pressure 82 mm[Hg] Oneyda Ramos MD Work Phone: [facility] 07-10-2022 08:39-0400 Heart rate 117 /min Oneyda Ramos MD Work Phone: [facility] 07-10-2022 08:39-0400 SaO2% (BldA) [Mass fraction] 98 % Oneyda Ramos MD Work Phone: [facility] 07-10-2022 08:39-0400 Systolic blood pressure 118 mm[Hg] Oneyda Ramos MD Work Phone: [facility] 11-16-2021 10:27-0400 Body height 162.6 cm Faith Stewart PA-C Work Phone: [facility] 11-16-2021 10:27-0400 Body weight 88 kg Faith Stewart PA-C Work Phone: [facility] 11-16-2021 10:27-0400 Diastolic blood pressure 80 mm[Hg] Faith Stewart PA-C Work Phone: [facility] 11-16-2021 10:27-0400 Heart rate 72 /min Faith Stewart PA-C Work Phone: [facility] 11-16-2021 10:27-0400 Systolic blood pressure 134 mm[Hg] Faith Stewart PA-C Work Phone: [facility] 10-05-2021 09:35-0400 Body temperature 97.9 [degF] Vanessa Her MD Work Phone: [facility] 10-05-2021 09:35-0400 Body weight 89.81 kg Vanessa Her MD Work Phone: [facility] 10-05-2021 09:35-0400 Diastolic blood pressure 80 mm[Hg] Vanessa Her MD Work Phone: [facility] 10-05-2021 09:35-0400 Heart rate 66 /min Vanessa Her MD Work Phone: [facility] 10-05-2021 09:35-0400 Respiratory rate 16 /min Vanessa Her MD Work Phone: [facility] 10-05-2021 09:35-0400 SaO2% (BldA) [Mass fraction] 98 % Vanessa Her MD Work Phone: [facility] 10-05-2021 09:35-0400 Systolic blood pressure 130 mm[Hg] Vanessa Her MD Work Phone: [facility] 07-11-2021 13:55-0400 Body weight 92.17 kg Joaquin Palacios APRN.COUPON REDEMPTION CLERK Work Phone: [facility] 07-11-2021 13:55-0400 Diastolic blood pressure 63 mm[Hg] Joaquin Palacios APRN.COUPON REDEMPTION CLERK Work Phone: [facility] 07-11-2021 13:55-0400 Heart rate 78 /min Joaquin Palacios APRN.COUPON REDEMPTION CLERK Work Phone: [facility] 07-11-2021 13:55-0400 Systolic blood pressure 114 mm[Hg] Joaquin Palacios APRN.COUPON REDEMPTION CLERK Work Phone: [facility] 06-11-2021 15:54-0400 Diastolic blood pressure 73 mm[Hg] [facility] Work Phone: 06-11-2021 15:54-0400 Heart rate 84 /min [facility] Work Phone: 06-11-2021 15:54-0400 Respiratory rate 16 /min [facility] Work Phone: 06-11-2021 15:54-0400 SaO2% (BldA) [Mass fraction] 99 % [facility] Work Phone: 06-11-2021 15:54-0400 Systolic blood pressure 158 mm[Hg] [facility] Work Phone: 06-11-2021 12:17-0400 Body height 165.1 cm [facility] Work Phone: 06-11-2021 12:17-0400 Body mass index (BMI) [Ratio] 35.3 kg/m2 [facility] Work Phone: 06-11-2021 12:17-0400 Body temperature 97.8 [degF] [facility] Work Phone: 06-11-2021 12:17-0400 Body weight 96.3 kg [facility] Work Phone: Encounters Encounter Date Encounter Type Care Provider Facility Start: 11-27-2024 End: 11-27-2024 Patient Outreach Maria Esther Sosa RN Work Phone: [employer] Comment on above: Transition Of Care ( Chart review) Start: 10-27-2024 End: 10-27-2024 Telephone encounter Yris GARCIA Work Phone: [employer] Start: 10-23-2024 End: 10-23-2024 Telephone encounter Yris GARCIA Work Phone: [employer] Start: 10-22-2024 End: 10-22-2024 Telephone encounter Shelbie Cm MD Work Phone: [employer] Comment on above: Initial Consult ([facility] [id number]) Start: 10-22-2024 End: 10-22-2024 ambulatory Shelbie Cm MD Work Phone: [employer] Comment on above: Palliative care by s pecialist (Primary Dx); 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) Start: 10-22-2024 End: 10-22-2024 Telemedicine consultation with patient Shelbie Cm MD Work Phone: [employer] Start: 10-20-2024 End: 10-21-2024 Telephone encounter Nehal Pablo [facility] [facility] - Compliance Comment on above: Compliance Adherence Start: 10-19-2024 End: 10-20-2024 Telephone encounter Pranav Gorman MSW Navigation Start: 10-16-2024 End: 10-16-2024 Patient encounter procedure Vanessa Her MD Work Phone: Internal Medicine [place] Comment on above: Persistent atrial fi brillation (HCC) (Primary Dx); Medicare annual wellness visit, subsequent; Severe late onset Alzheimer's dementia, unspecified whether behavioral, psychotic, or mood disturbance or anxiety (HCC); Stage 3a chronic kidney disease (HCC); Screening for depression; Encounter for screening examination for other mental health and behavioral disorders Start: 10-16-2024 End: 10-16-2024 ambulatory [facility] Facility:[facility] Start: 09-14-2024 End: 09-14-2024 ambulatory Milana Dietrich MA [facility] Start: 09-14-2024 End: 09-14-2024 Patient encounter procedure Milana Dietrich MA [facility] Comment on above: Population Health Na vigation Outreach ( ERIC [place] PCSA // ) Start: 08-21-2024 End: 08-21-2024 ambulatory [facility] Facility:[facility] Start: 08-21-2024 End: 08-21-2024 Office consultation new/estab patient 40 min Vanessa Her MD Work Phone: Internal Medicine [place] Comment on above: Dementia without beh avioral disturbance (HCC) (Primary Dx); Medical non-compliance; Acquired hypothyroidism Start: 06-12-2024 End: 06-16-2024 Paul Lambert APRN.CNP Work Phone: RX Adherence Packaging Comment on above: Refill Request Start: 06-10-2024 End: 06-10-2024 ambulatory ROSSY CROCKER Facility:[facility] Start: 06-10-2024 End: 06-10-2024 Office outpatient visit 15 minutes Juana Prabhakar APRN.COUPON REDEMPTION CLERK Work Phone: Cardiology Comment on above: Persistent atrial fi brillation (HCC) (Primary Dx); Essential hypertension; Mixed hyperlipidemia; PVC's (premature ventricular contractions) Start: 05-26-2024 End: 05-27-2024 Refill Yamilet Garciabeckie [facility] RX Adherence Packag ing Comment on above: Refill Request Start: 05-19-2024 End: 05-19-2024 [facility] Start: 05-19-2024 End: 05-19-2024 Office outpatient visit 25 minutes Vanessa Hre MD Work Phone: Internal Medicine [place] Comment on above: Acquired hypothyroid ism (Primary Dx); Dementia with behavioral disturbance (HCC); Essential hypertension; Anemia, unspecified type; Stage 3a chronic kidney disease (HCC); Caregiver stress Start: 04-09-2024 End: 04-09-2024 ambulatory [facility] Facility:[facility] Start: 04-05-2024 End: 04-08-2024 Refill Erica Noonan APRN.COUPON REDEMPTION CLERK Work Phone: Internal Medicine [place] Comment on above: Refill Request Start: 03-09-2024 End: 03-09-2024 [facility] Facility:[facility] Start: 03-09-2024 End: 03-09-2024 Patient encounter procedure Rossy Crocker DO Work Phone: Cardiology Comment on above: Persistent atrial fi brillation (HCC) (Primary Dx); PVC's (premature ventricular contractions); Essential hypertension; Mixed hyperlipidemia Start: 02-17-2024 End: 02-17-2024 Patient encounter procedure Vanessa Her MD Work Phone: Internal Medicine [place] Comment on above: Alzheimer's dementia without behavioral disturbance, psychotic disturbance, mood disturbance, or anxiety, unspecified dementia severity, unspecified timing of dementia onset (HCC) (Primary Dx) Start: 02-17-2024 End: 02-17-2024 ambulatory [facility] Facility:[facility] Start: 02-11-2024 End: 02-11-2024 ambulatory [facility] Facility:[facility] Start: 02-04-2024 End: 02-07-2024 ambulatory Vanessa Her MD Work Phone: Internal Medicine [place] [id number] Start: 11-22-2023 End: 11-22-2023 Emergency department patient visit [facility] Facility:[facility] Start: 11-14-2023 End: 06-02-2024 Telephone encounter Vanessa Her MD Work Phone: Internal Medicine [place] Start: 11-13-2023 End: 11-13-2023 Patient encounter procedure Vanessa Her MD Work Phone: Internal Medicine [place] Comment on above: Alzheimer's disease (HCC) (Primary Dx); Anemia, unspecified type Start: 10-24-2023 End: 11-14-2023 Telephone encounter Vanessa Her MD Work Phone: Internal Medicine [place] Comment on above: Orders (Geriatric co nsult) Start: 10-24-2023 End: 10-24-2023 Office outpatient visit 25 minutes Vanessa Her MD Work Phone: Internal Medicine [place] Comment on above: Alzheimer's disease (HCC) (Primary Dx); Weight loss; Acquired hypothyroidism; Essential hypertension; Primary osteoarthritis involving multiple joints; Vitamin B12 deficiency; Dementia with behavioral disturbance (HCC) Start: 10-01-2023 Refill Meagan Older RADIO RECORDER .COUPON REDEMPTION CLERK Work Phone: Internal Medicine [place] Comment on above: Refill Request Start: 09-02-2023 Refill Meagan Older RADIO RECORDER .COUPON REDEMPTION CLERK Work Phone: Internal Medicine [place] Comment on above: Refill Request Start: 08-19-2023 End: 08-19-2023 Emergency department patient visit [facility] Facility:[facility] Start: 06-24-2023 End: 06-24-2023 ambulatory Vivian Constantino PTA Work Phone: [facility] Comment on above: Chronic pain of left knee (Primary Dx); Chronic knee instability, left Start: 06-17-2023 End: 06-17-2023 ambulatory Vivian Constantino PTA Work Phone: [facility] Comment on above: Chronic pain of left knee (Primary Dx); Chronic knee instability, left Start: 06-10-2023 End: 06-10-2023 ambulatory Vivian Constantino PTA Work Phone: [facility] Comment on above: Chronic pain of left knee (Primary Dx); Chronic knee instability, left Start: 06-03-2023 End: 06-03-2023 ambulatory Tanna Lemon PT [facility] Comment on above: Chronic pain of left knee (Primary Dx); Chronic knee instability, left Start: 05-27-2023 End: 05-27-2023 ambulatory Tanna Lemon PT [facility] Comment on above: Chronic pain of left knee (Primary Dx); Chronic knee instability, left Start: 05-10-2023 End: 05-10-2023 ambulatory Vivianelizabeth Constantino PTA Work Phone: [facility] Comment on above: Chronic pain of left knee (Primary Dx); Chronic knee instability, left Start: 05-08-2023 Refill Meagan Lambert APRN, .CNP Work Phone: Internal Medicine [place] Comment on above: Refill Request Start: 05-07-2023 [...] 05-07-2023 Subsequent hospital visit by physician [facility] [place] Demetris Work Phone: Radiology Comment on above: Deformity of toe of right foot [M20.61] Start: 05-03-2023 End: 05-03-2023 ambulatory Tanna Orellana PT [facility] Comment on above: Chronic pain of left knee (Primary Dx); Chronic knee instability, left Start: 2023 End: 2023 Patient encounter procedure Kinga Melendrez PA-C Work Phone: [place] [facility] Comment on above: COVID (Primary Dx) Start: 03-07-2023 End: 03-07-2023 ambulatory [facility] Facility:[facility] Start: 03-07-2023 End: 03-07-2023 Patient encounter procedure Rossy Crocker DO Work Phone: Cardiology Comment on above: PVC's (premature tr tricular contractions) (Primary Dx); Essential hypertension; Mixed hyperlipidemia Start: 03-03-2023 Refill Shyanne Del Angel APRN.COUPON REDEMPTION CLERK Work Phone: Cardiology Comment on above: Refill Request Start: 11-20-2022 End: 11-20-2022 Patient encounter procedure Tejinder Funes MD Work Phone: General Surgery Comment on above: Soft tissue mass (Pr imary Dx) Start: 11-13-2022 End: 11-13-2022 Patient encounter procedure Tejinder Funes MD Work Phone: General Surgery Comment on above: Soft tissue mass; Tenderness Start: 11-05-2022 Telephone encounter Meagan Lambert APRN.COUPON REDEMPTION CLERK Work Phone: Internal Medicine [place] Comment on above: Results Start: 10-18-2022 ambulatory [facility] Facility:[facility] Start: 10-18-2022 End: 10-18-2022 Subsequent hospital visit by physician [facility] Comment on above: Mass of soft tissue of left upper extremity [M79.89] Start: 10-09-2022 Refill Meagan PhamCOUPON REDEMPTION CLERK Work Phone: Internal Medicine [place] Comment on [...] inclusion cyst; Dysesthesia Start: 03-27-2022 Refill Erica PhamCOUPON REDEMPTION CLERK Work Phone: Internal Medicine [place] Comment on above: Refill Request Start: 12-27-2021 Refill Rossy Crocker DO Work Phone: Cardiology Comment on above: Refill Request Start: 11-21-2021 End: 11-21-2021 [facility] Work Phone: Radiology Comment on above: Projectile vomiting with nausea [R11.12] Start: 11-16-2021 End: 11-16-2021 Patient encounter procedure Faith William PA-C Work Phone: Gastroenterology [place] Comment on above: Projectile vomiting with nausea (Primary Dx) Start: 11-06-2021 Refill Rossy Crocker DO Work Phone: Cardiology Comment on above: Refill Request Start: 10-24-2021 End: 10-24-2021 Subsequent hospital visit by physician [facility] (I-Stat/1.5t) Work Phone: Radiology Comment on above: 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] Start: 10-05-2021 End: 10-05-2021 Patient encounter procedure Vanessa Her MD Work Phone: Internal Medicine [place] Comment on above: Projectile vomiting with nausea (Primary Dx); New onset of headaches; Essential hypertension; Mixed hyperlipidemia; Multiple and bilateral precerebral artery syndromes Start: 09-24-2021 Refill Daniel olivarez MD Work Phone: Neurology Comment on above: Refill Request Start: 09-19-2021 ambulatory Vanessa Fairchild Work Phone: Internal Medicine [place] Start: 07-11-2021 End: 07-12-2021 Patient encounter procedure Joaquin Philip RÍOS.COUPON REDEMPTION CLERK Work Phone: Neurology Comment on above: 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 Start: 06-11-2021 End: 06-11-2021 Emergency department patient visit [facility] Start: 01-23-2016 Patient encounter procedure VANESSA HER [facility] Procedures Date Procedure Procedure Detail Performing Clinician [...] Start: 02-10-2027 Diabetes Screening Diabetes Screenin g [facility] Start: 04-19-2026 Diabetes Screening Diabetes Screenin g [facility] Start: 10-16-2025 Anxiety Screening Anxiety Screening [facility] Start: 10-16-2025 Depression Screening Depression Scre ening [facility] Start: 10-16-2025 Medicare Annual Well ness Visit Medicare Annual Wellness Visit [facility] Start: 10-16-2025 RSV Vaccine (1 - 1-d ose 75+ series) RSV Vaccine (1 - 1-dose 75+ series) [facility] Comment on above: Postponed from 03/25 (Declined at this time) Start: 07-10-2025 DIABETES SCREEN DIABETES SCREEN [facility] Start: 07-10-2025 Diabetes Screening Diabetes Screenin g [facility] Start: 04-19-2025 End: 04-19-2025 Patient encounter procedure 04/19/2025 11:20 AM EST Office Visit Internal Medicine [place] [address] [place] [address] Vanessa Her MD [address] [place], [place] [id number] 6 Month F/U Internal Medicine [place] Comment on above: 6 Month F/U Start: 03-03-2025 End: 03-03-2025 Patient encounter procedure 03/03/2025 11:00 AM EST Office Visit Cardiology [address] [id number] Juana Prabhakar, RADIO RECORDER.COUPON REDEMPTION CLERK [address] [address] follow up Cardiology Comment on above: follow up Start: 11-23-2024 Influenza vaccination [facility] Start: 10-16-2024 End: 10-16-2024 Patient encounter procedure 10/16/2024 10:00 AM EDT Office Visit Internal Medicine [place] [address] [place] [address] Vanessa Her MD [address] [place] [address] medicare wellness Internal Medicine [place] Comment on above: medicare wellness Start: 10-03-2024 DIABETES SCREEN DIABETES SCREEN [facility] Start: 08-21-2024 End: 08-21-2024 Patient encounter procedure 08/21/2024 9:20 AM EDT Office Visit Internal Medicine [place] [address] [facility] [place] [address] Vanessa Her MD [address] [place] [address] 3 month follow up Internal Medicine [place] Comment on above: 3 month follow up Start: 06-10-2024 End: 06-10-2024 Patient encounter procedure 06/10/2024 11:30 AM EDT Office Visit Cardiology [address] [address] Juana Prabhakar APRN.COUPON REDEMPTION CLERK [address] [address] 3 month follow up Cardiology Comment on above: 3 month follow up Start: 05-19-2024 End: 08-18-2024 Thyrotropin [Units/volume] in Serum or Plasma [facility] Work Phone: Comment on above: Expected: 05/19/2024 , Expires: 08/18/2024 Start: 05-19-2024 End: 08-18-2024 Thyroxine (T4) free [Mass/volume] in Serum or Plasma [facility] Comment on above: Expected: 05/19/2024 , Expires: 08/18/2024 Start: 05-19-2024 End: 05-19-2024 Patient encounter procedure 05/19/2024 9:00 AM EST Office Visit Internal Medicine [place] [address] [facility] [place], [place] [address] Vanessa Her MD [address] [facility] [place] [id number] 3 MONTH FOLLOW UP Internal Medicine [place] Comment on above: 3 MONTH FOLLOW UP Start: 04-22-2024 RSV Vaccine (1 - 1-d ose 60+ series) RSV Vaccine (1 - 1-dose 60+ series) [facility] Comment on above: Postponed from 03/25 (Declined at this time) Start: 04-22-2024 RSV Vaccine (1 - 1-d ose 75+ series) RSV Vaccine (1 - 1-dose 75+ series) [facility] Comment on above: Postponed from 03/25 (Declined at this time) Start: 04-09-2024 End: 04-09-2024 Patient encounter procedure 04/09/2024 1:50 PM EST Office Visit Cardiology [address] [address] Persistent atrial fibrillation (HCC) [I48.19] Cardiology Comment on above: Persistent atrial fi brillation (HCC) [I48.19] Start: 04-07-2024 DIABETES SCREEN DIABETES SCREEN [facility] Start: 2024 Advance Directive Discussion Advance Directive Discussion [facility] Start: 03-09-2024 End: 03-09-2024 Patient encounter procedure Cardiology Comment on above: Annual follow up Start: 02-17-2024 End: 02-17-2024 Patient encounter procedure 02/17/2024 2:00 PM EST Office Visit Internal Medicine [place] [address] [place] [address] Vanessa Her MD [address] [place] [address] 3 month follow up geriatrics Internal Medicine [place] Comment on above: 3 month follow up doreen atkins Start: 02-13-2024 End: 02-13-2024 Patient encounter procedure 02/13/2024 11:00 AM EST Office Visit Internal Medicine [place] [address] [facility] [place] [address] Vanessa Her MD [address] [facility] [place] [address] 3 month follow up geriatrics Internal Medicine [place] Comment on above: 3 month follow up doreen [employer] Start: 02-11-2024 End: 02-11-2024 ambulatory 02/11/2024 9:30 AM EST Results Only [place] [facility] [address] [place] [address] [place] [facility] Start: 02-04-2024 End: 05-05-2024 Basic metabolic 2000 panel - Serum or Plasma BASIC METABOLIC PANEL Lab Routine CKD (chronic kidney disease) stage 3, GFR 30-59 ml/min ([facility]) Expected: 02/04/2024, Expires: 05/05/2024 [facility] Work Phone: Comment on above: Expected: 02/04/2024 , Expires: 05/05/2024 Start: 02-04-2024 End: 05-05-2024 Lipid 1996 panel - Serum or Plasma LIPID PANEL BASIC Lab Routine Mixed hyperlipidemia Expected: 02/04/2024, Expires: 05/05/2024 [facility] Comment on above: Expected: 02/04/2024 , Expires: 05/05/2024 Start: 11-24-2023 Covid-19 Vaccine () Covid-19 Vaccine () [facility] Start: 11-24-2023 Influenza vaccination Influenza Vacc ine (#1) [facility] Start: 11-14-2023 BP CONTROLLED (<130/80) BP CONTROLLE D (<130/80) [facility] Start: 11-13-2023 End: 02-12-2024 PROTEIN ELECTROPHORESIS SERUM W/INTERP [facility] Work Phone: Comment on above: Expected: 11/13/2023 , Expires: 02/12/2024 Start: 10-24-2023 End: 01-23-2024 Cobalamin (Vitamin B12) [Mass/volume] in Serum or Plasma [facility] Comment on above: Expected: 10/24/2023 , Expires: 01/23/2024 Start: 10-24-2023 End: 01-23-2024 Thyrotropin [Units/volume] in Serum or Plasma [facility] Work Phone: Comment on above: Expected: 10/24/2023 , Expires: 01/23/2024 Start: 10-24-2023 End: 10-24-2023 Patient encounter procedure 10/24/2023 9:20 AM EDT Office Visit Internal Medicine [place] [address] [place] [address] Vanessa Her MD [address] [place] [address] 6 Month follow up Internal Medicine [place] Comment on above: 6 Month follow up Start: 10-18-2023 ANNUAL PCP TEAM DOOR PANELER KAI DISEASE VISIT ANNUAL PCP TEAM CHRONIC DISEASE VISIT [facility] Start: 10-18-2023 COVID-19 VACCINE (6 - Pfizer series) COVID-19 VACCINE (6 - Pfizer series) [facility] Comment on above: Postponed from 06/03 (Declined at this time) Start: 07-11-2023 Complete blood count Hemoglobin/Santy tocrit [facility] Start: 07-11-2023 Creatinine measurement Serum Creatin ine [facility] Start: 07-11-2023 HEMOGLOBIN/HEMATOCRIT HEMOGLOBIN/HEM ATOCRIT [facility] Start: 07-11-2023 SERUM CREATININE SERUM CREATININE [facility] Start: 07-10-2023 ANNUAL PCP TEAM DOOR PANELER KAI DISEASE VISIT ANNUAL PCP TEAM CHRONIC DISEASE VISIT [facility] Start: 07-10-2023 Urine microalbumin profile [facility] Comment on above: Postponed from 03/05 (Declined at this time) Start: 06-10-2023 Covid-19 Vaccine ( season) Covid-19 Vaccine ( season) [facility] Start: 2023 Advance Directive Discussion Advance Directive Discussion [facility] Start: 11-23-2022 Influenza vaccination INFLUENZA (#1) [facility] Start: 10-05-2022 ANNUAL PCP TEAM DOOR PANELER KAI DISEASE VISIT ANNUAL PCP TEAM CHRONIC DISEASE VISIT [facility] Start: 07-11-2022 BP CONTROLLED (<130/80) BP CONTROLLE D (<130/80) [facility] Start: 06-03-2022 COVID-19 VACCINE (6 - Pfizer series) COVID-19 VACCINE (6 - Pfizer series) [facility] Start: 04-07-2022 HEMOGLOBIN/HEMATOCRIT HEMOGLOBIN/HEM ATOCRIT [facility] Start: 04-07-2022 SERUM CREATININE SERUM CREATININE Cl [facility] Start: 04-06-2022 ANNUAL PCP TEAM DOOR PANELER KAI DISEASE VISIT ANNUAL PCP TEAM CHRONIC DISEASE VISIT [facility] Start: 2022 ADVANCE DIRECTIVE DISCUSSION ADVANCE DIRECTIVE DISCUSSION [facility] Start: 11-23-2021 Influenza vaccination INFLUENZA (#1) [facility] Start: 11-15-2021 COVID-19 VACCINE (5 - Booster for Pfizer series) COVID-19 VACCINE (5 - Booster for Pfizer series) [facility] Start: 09-19-2021 End: 11-19-2021 Hemoglobin A1c in Blood HGB A1C Lab Routine Medication management Expected: 09/19/2021, Expires: 11/19/2021 [facility] Work Phone: Comment on above: Expected: 09/19/2021 , Expires: 11/19/2021 Start: 09-19-2021 End: 11-19-2021 SCHEDULE LAB TESTING SCHEDULE LAB TESTING Lab Routine Expected: 09/19/2021, Expires: 11/19/2021 [facility] Work Phone: Comment on above: Expected: 09/19/2021 , Expires: 11/19/2021 Start: 05-07-2021 COVID-19 VACCINE (4 - Booster for Pfizer series) COVID-19 VACCINE (4 - Booster for Pfizer series) [facility] Start: 2021 ADVANCE DIRECTIVE DISCUSSION ADVANCE DIRECTIVE DISCUSSION [facility] Start: 2017 RSV Vaccine (1 - 1-d ose 75+ series) RSV Vaccine (1 - 1-dose 75+ series) [facility] Start: 03-05-2017 Urine microalbumin profile [facility] Start: 02-22-2007 Medicare Annual Well ness Visit Medicare Annual Wellness Visit [facility] Start: 2002 RSV Vaccine (1 - 1-d ose 60+ series) RSV Vaccine (1 - 1-dose 60+ series) [facility] Start: 1960 Anxiety Screening Anxiety Screening [facility] Start: 1960 BP CONTROLLED (<130/80) BP CONTROLLE D (<130/80) [facility] Start: 1960 Depression Screening Depression Scre ening [facility] ECG COMPLETE ECG COMPLETE ECG 03/09/2024 11:02 AM EST [facility] End: 03-09-2025 Echocardiography ECHO Cardiology Routine Persistent atrial fibrillation (HCC) PVC's (premature ventricular contractions) Essential hypertension Mixed hyperlipidemia 1 Occurrences starting 03/09/2024 until 03/09/2025 [facility] Work Phone: Comment on above: 1 Occurrences starti ng 03/09/2024 until 03/09/2025 Hemoglobin.gastroint estina l.lower [Presence] in Stool by Immunoassay IMMUNOCHEMICAL FECAL OCCULT BLOOD TEST Lab Routine Anemia, unspecified type Ordered: 11/13/2023 [facility] Comment on above: Ordered: 11/13/2023 End: 11-04-2022 Mri brain brain stem w/o w/contrast material MRI BRAIN WO/W IVCON Radiology Routine Multiple and bilateral precerebral artery syndromes 1 Occurrences starting 10/05/2021 until 11/04/2022 [facility] Work Phone: Comment on above: 1 Occurrences starti ng 10/05/2021 until 11/04/2022 Patient Education ED Vomiting (Adult) [facility] Work Phone: Patient referral [facility] Work Phone: SURGICAL PATHOLOGY SURGICAL PATH OLOGY Lab Routine Skin cyst 07/23/2022 9:21 AM EDT [facility] Work Phone: SURGICAL PATHOLOGY SURGICAL PATH OLOGY Lab Routine Soft tissue mass 11/20/2022 10:29 AM EDT [facility] Work Phone: End: 12-16-2022 Us abdominal real time w/image limited US ABD RT UPPER QUADRANT Radiology Routine Projectile vomiting with nausea 1 Occurrences starting 11/16/2021 until 12/16/2022 [facility] Work Phone: Comment on above: 1 Occurrences starti ng 11/16/2021 until 12/16/2022 US EXTREMITY MASS/FL UID COLLECTION LEFT US EXTREMITY MASS/FLUID COLLECTION LEFT Radiology Routine Mass of soft tissue of left upper extremity 10/18/2022 9:18 AM EDT [facility] Work Phone: XR Foot - right AP a nd Lateral and oblique XR FOOT GENERAL 3V AP/LAT/OBL RIGHT Radiology Routine Deformity of toe of right foot 05/07/2023 10:12 AM EST [facility] Work Phone: [facility] Immunizations Immunization Date Immunization Notes Care Provider Ilana stein 02-09-2023 COVID-19 vaccine, ag e 12+ yr, season (PFIZER-BIONTECH) Shyanne Quigley RADIO RECORDER.COUPON REDEMPTION CLERK Work Phone: [facility] 02-09-2023 influenza (HD-IIV4) vaccine, age 65+ yr, high dose, quadrivalent, PF (FLUZONE HIGH-DOSE) Shyanne Quigley RADIO RECORDER.COUPON REDEMPTION CLERK Work Phone: [facility] 02-09-2023 influenza virus vacc ine, unspecified formulation Meagan Older RADIO RECORDER.COUPON REDEMPTION CLERK Work Phone: [facility] 02-03-2022 COVID-19 booster vaccine, age 12+ yr, bivalent (PFIZER-BIONTECH) Erica Older RADIO RECORDER.COUPON REDEMPTION CLERK Work Phone: [facility] 02-03-2022 influenza, high dose seasonal, preservative-free Erica Older RADIO RECORDER.COUPON REDEMPTION CLERK Work Phone: [facility] 01-04-2021 COVID-19 vaccine, ag e 12+ yr (PFIZER-BIONTECH - PURPLE TOP) Meagan Older RADIO RECORDER.COUPON REDEMPTION CLERK Work Phone: [facility] 01-04-2021 influenza, high dose seasonal, preservative-free Meagan Older RADIO RECORDER.COUPON REDEMPTION CLERK Work Phone: [facility] 10-21-2020 zoster vaccine recombinant Meagan Older RADIO RECORDER.COUPON REDEMPTION CLERK Work Phone: [facility] 08-16-2020 zoster vaccine recombinant Meagan Older RADIO RECORDER.COUPON REDEMPTION CLERK Work Phone: [facility] 06-10-2020 COVID-19 vaccine, ag e 12+ yr (PFIZER-BIONTECH - PURPLE TOP) Meagan Older RADIO RECORDER.COUPON REDEMPTION CLERK Work Phone: [facility] 05-20-2020 COVID-19 vaccine, ag e 12+ yr (PFIZER-BIONTECH - PURPLE TOP) Meagan Older RADIO RECORDER.COUPON REDEMPTION CLERK Work Phone: [facility] 12-11-2017 influenza, high dose seasonal, preservative-free Meagan Older RADIO RECORDER.COUPON REDEMPTION CLERK Work Phone: [facility] Work Phone: 12-30-2015 influenza, high dose seasonal, preservative-free Meagan Older RADIO RECORDER.COUPON REDEMPTION CLERK Work Phone: [facility] 01-13-2015 influenza, high dose seasonal, preservative-free Meagan Older RADIO RECORDER.COUPON REDEMPTION CLERK Work Phone: [facility] 07-20-2014 pneumococcal conjuga te vaccine, 13 valent Meagan Older RADIO RECORDER.COUPON REDEMPTION CLERK Work Phone: [facility] 01-12-2014 influenza, seasonal, injectable Meagan Older RADIO RECORDER.COUPON REDEMPTION CLERK Work Phone: [facility] 02-26-2012 influenza virus vacc ine, unspecified formulation Meagan Older RADIO RECORDER.COUPON REDEMPTION CLERK Work Phone: [facility] 02-22-2011 influenza virus vacc ine, unspecified formulation Meagan Older RADIO RECORDER.COUPON REDEMPTION CLERK Work Phone: [facility] 03-10-2010 influenza virus vacc ine, unspecified formulation Meagan Older RADIO RECORDER.COUPON REDEMPTION CLERK Work Phone: [facility] 03-22-2009 pneumococcal polysaccharide vaccine, 23 valent Meagan Older RADIO RECORDER.COUPON REDEMPTION CLERK Work Phone: [facility] Work Phone: 03-05-2007 influenza virus vacc ine, unspecified formulation Meagan Older RADIO RECORDER.COUPON REDEMPTION CLERK Work Phone: [facility] Work Phone: 03-05-2007 tetanus toxoid, redu anoop diphtheria toxoid, and acellular pertussis vaccine, adsorbed Meagan Older RADIO RECORDER.COUPON REDEMPTION CLERK Work Phone: [facility] Work Phone: 03-21-2005 influenza virus vacc ine, unspecified formulation Meagan Older RADIO RECORDER.COUPON REDEMPTION CLERK Work Phone: [facility] 02-15-2003 pneumococcal polysaccharide vaccine, 23 valent Meagan Lambert RADIO RECORDER.[facility] Work Phone: [facility] Work Phone: Payers Date Payer Category Payer Self-pay [id number] 2013 Private Health Insurance HUMANA HUMANA MEDICARE SUPPLEMENT [id number] 2013-Present [phone] [address] [address] [place] [address] Indemnity [id number] 2013 Private Health Insurance [id number] 2013 Private Health Insurance [id number] 2007 Medicare MEDICARE MEDICAR E A AND B [id number] 2007-Present [phone] [address] [address] [place] [address] Medicare [id number] 2007 Medicare [id number] 2007 Medicare [id number] Unknown [id number] Unknown [id number] Social History Date Type Detail Facility Start: 06-11-2021 Tobacco smoking status CTIS Unknown if ever smoked [facility] Work Phone: Start: 1940 Sex Assigned At Female [facility] Start: 03-12-2017 End: 11-13-2023 Tobacco smoking status NHIS Ex-smoker [facility] End: 1998 History of tobacco use Current smoker [facility] Start: 06-06-2021 End: 10-16-2024 Alcohol intake Current drinker of alcohol (finding) [facility] Start: 06-06-2021 End: 10-17-2022 Alcohol intake [facility] Start: 06-26-2020 End: 07-09-2022 History SDOH Alcohol Frequency 3 [facility] Start: 06-26-2020 End: 07-09-2022 History SDOH Alcohol Std Drinks 1 [facility] Start: 03-22-2016 History SDOH Alcohol Comment occasionally - bottle of wine share once monthly (02/2016) [facility] Start: 06-26-2020 End: 07-09-2022 History SDOH Social Connections Phone 2 [facility] Start: 06-26-2020 End: 07-09-2022 History SDOH Physical Activity DPW 0 [facility] Start: 06-26-2020 End: 07-09-2022 History SDOH Financial 5 [facility] Start: 06-26-2020 Education 17 [facility] Start: 05-27-2021 End: 11-16-2021 Exposure to SARS-CoV-2 (event) Not sure [facility] End: 1998 History of tobacco use Cigarette Smoker [facility] Work Phone: Start: 03-12-2017 End: 11-13-2023 Tobacco use and exposure Smokeless tobacco non-user [facility] Work Phone: Start: 07-09-2022 End: 10-17-2022 Social connection and isolation panel [facility] Do you belong to any clubs or organizations such as tenriism groups, unions, fraternal or athletic groups, or school groups? No [facility] Are you now , , , , never or living with a partner? [facility] How often to you hav e a drink containing alcohol? Monthly or less [facility] How many standard dr inks containing alcohol do you have on a typical day? 1 or 2 [facility] How often do you hav e 6 or more drinks on 1 occasion? Never [facility] Start: 02-24-2012 How hard is it for you to pay for the very basics like food, housing, medical care, and heating Not hard at all [facility] Do you feel stress - tense, restless, nervous, or anxious, or unable to sleep at night because your mind is troubled all the time - these days [OSQ] Only a little [facility] (I/We) worried wheth er (my/our) food would run out before (I/we) got money to buy more. Never true [facility] Start: 09-11-2018 Gender identity Identifies as female gender (finding) [facility] Start: 09-11-2018 Sexual orientation Heterosexual (finding) [facility] Do you belong to any clubs or organizations such as tenriism groups, unions, [employer] or athletic groups, or school groups? Yes [facility] Do you feel stress - tense, restless, nervous, or anxious, or unable to sleep at night because your mind is troubled all the time - these days [OSQ] Rather much [facility] Functional Status Date Assessment Result Facility 07-20-2014 Are you deaf, or do you have serious difficulty hearing No 07/20/2014 11:38 AM Trevon Lester LPN No [facility] 07-20-2014 Are you blind, or do you have serious difficulty seeing, even when wearing glasses No 07/20/2014 11:38 AM Trevon Lester LPN No [facility] 07-20-2014 Do you have serious difficulty walking or climbing stairs No 07/20/2014 11:38 AM Trevon Lester LPN No [facility] 07-20-2014 Do you have difficul ty dressing or bathing No 07/20/2014 11:38 AM Trevon Lester LPN No [facility] 07-20-2014 Because of a physica l, mental, or emotional condition, do you have difficulty doing errands alone such as visiting a physician's office or shopping No 07/20/2014 11:38 AM Trevon Lester LPN No [facility] Mental Status Date Assessment Result Facility 07-20-2014 Because of a physica l, mental, or emotional condition, do you have serious difficulty concentrating, remembering, or making decisions No 07/20/2014 11:38 AM EDT Trevon Dorado LPN No [facility] Clinical Notes 01-23-2016 to 11-27-2024 Maria Esther Sosa, ANGEL - 11/27/2024 1:10 PM EDTTelephone Encounter - Yris Dickson LISW - 10/27/2024 9:51 AM EDTTelephone Encounter - Yris Dickson LISW - 10/27/2024 9:51 AM EDT Note Date & Type Note Facility 11-27-2024 Note HNO ID: [id number] Author: MARIA ESTHER SOSA RN Service: ? [...] Sosa RN November 27, 2024 1:12 PM [facility] 11-27-2024 History of Presen t illness [...] 2024 1:12 PM documented in this encounter [facility] 11-27-2024 Note Patient Outreach (AM BC) GERTRUDE FLORES ([id number]) 1940 F Date Time Provider Department 11/27/24 [...] problem [R26.89] 03/22/2016 B12 deficiency [E53.8] 03/22/2016 [place] (hard of hearing) [H91.90] 03/22/2016 Screening for colon cancer [Z12.11] 12/24/2016 PVC's (premature ventricular contractions) [I49*09/12/2018 Mixed hyperlipidemia [E78.2] 02/10/2019 CKD (chronic kidney disease) stage 3, GFR 30-59*08/12/2019 Chronic pain of left knee [M25.562, G89.29] 05/03/2023 Chronic knee instability, 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 TOPICS ADDRESSED: community resources CLINICAL ASSESSMENT: CBPM SW continues to try and connect Pt with in-home PCP. SW has left VM x3 with [employer] [facility] to inquire if [place] is in their territory/if they are accepting new Pts. SW spoke with Pt's spouse, Avila, on this date and provided update. Once SW hears from [facility], SW will communicate next steps to Pt/spouse. SW to follow. INTERVENTIONS/REFERRALS TO BE PROVIDED:Communicate pertinent medical/psychosocial information to Palliative Medicine team PLAN: Will continue to monitor patient/family coping and remain available for psychosocial intervention as patient/family system integrate illness trajectory and its impact on their lives JOSE Palacios [facility] Work Phone: 10-27-2024 Miscellaneous Notes PALLIATIVE MEDICINE SOCIAL WORK PROGRESS NOTE Date of Service: October 27, 2024 Gertrude Flores is being seen for an initial/follow up Palliative Care Social Work visit. TOPICS ADDRESSED: community resources CLINICAL ASSESSMENT: CBPM SW continues to try and connect Pt with in-home PCP. SW has left VM x3 with [employer] [facility] to inquire if [place] is in their territory/if they are accepting new Pts. SW spoke with Pt's spouse, Avila, on this date and provided update. Once SW hears from [facility], SW will communicate next steps to Pt/spouse. SW to follow. INTERVENTIONS/REFERRALS TO BE PROVIDED:Communicate pertinent medical/psychosocial information to Palliative Medicine team PLAN: Will continue to monitor patient/family coping and remain available for psychosocial intervention as patient/family system integrate illness trajectory and its impact on their lives JOSE Palacios documented in this encounter [facility] 10-23-2024 Telephone encounter Note PALLIATIVE MEDICINE SOCIAL WORK PROGRESS NOTE Date of Service: October 23, 2024 Gertrude Flores is being seen for an initial/follow up Palliative Care Social Work visit. Today's visit includes: spouse TOPICS ADDRESSED: community resources CLINICAL ASSESSMENT: CBPM SW received referral from physician that Pt is in need of in-home PCP. She is currently outside of service network for [facility]. SW reached out to Pranav Noel, Marnie Prabhakar [employer] for [facility] to inquire about alternative resources. With their assistance this SW left VM with both [facility] and [employer] [facility] to inquire about services. SW [...] its impact on their lives JOSE Palacios [facility] Work Phone: 10-23-2024 Miscellaneous Notes PALLIATIVE MEDICINE SOCIAL WORK PROGRESS NOTE Date of Service: October 23, 2024 Gertrude Flores is being seen for an initial/follow up Palliative Care Social Work visit. Today's visit includes: spouse TOPICS ADDRESSED: community resources CLINICAL ASSESSMENT: CBPM SW received referral from physician that Pt is in need of in-home PCP. She is currently outside of service network for [facility]. SW reached out to Pranav Noel and Heather Sipple [employer] for [facility] to inquire about alternative resources. With their assistance this SW left VM with both [facility] and [employer] [facility] to inquire about services. SW [...] lives JOSE Palacios documented in this encounter [facility] 10-22-2024 Telephone encounter Note Medical Care at home referral was received for Primary Care services. Unfortunately the referral is declined at this time due to geographic location. Thank you for the referral. Patient discharged from Medical Care at Home: Discharge Reason: Other with Patient resides outside of the [facility] service area Discharge Date: 10/22/2024 Please cancel any pending orders-Button [facility], upcoming appointments with [facility] ROSALES Cerna [facility] 10-22-2024 Miscellaneous Notes Medical Care at home referral was received for Primary Care services. Unfortunately the referral is declined at this time due to geographic location. Thank you for the referral. Patient discharged from Medical Care at Home: Discharge Reason: Other with Patient resides outside of the [facility] service area Discharge Date: 10/22/2024 Please cancel any pending orders-Button [facility], upcoming appointments with [facility] ROSALES [facility] MED[facility] AT HOME [facility] REFERRAL Date Referral Received: 10/22/2024 Referral Source: [facility] Physician office Date of : 1940 Age: [age] year old PCP: Vanessa Her MD Visit address from [facility]: [address] [place] [address] Reason for referral: Ongoing Primary Care Name of Physician who gave the order: Dr. Shelbie Cm Primary Insurance Company: Payor: MEDICARE / Plan: MEDICARE A AND B / Product Type: Medicare / Primary Insurance ID Number: [id number] documented in this encounter [facility] 10-22-2024 Telephone encounter Note MEDICAL CARE AT HOME [facility] REFERRAL Date Referral Received: 10/22/2024 Referral Source: Physician office Date of : 1940 Age: [age] year old PCP: Vanessa Her MD Visit address from [facility]: [address] [place] [address] Reason for referral: Ongoing Primary Care Name of Physician who gave the order: Dr. Shelbie Cm Primary Insurance Company: Payor: MEDICARE / Plan: MEDICARE A AND B / Product Type: Medicare / Primary Insurance ID Number: [id number] [facility] 10-21-2024 Note HNO ID: [id number] Author: SHELBIE CM MD Service: ? Author [...] further discuss community resources. Referral placed to [facility] PCP for in-home primary care. ? HEALTHCARE [...] 22, 2024 TIME: 1:00 PM PAGER/CONTACT #: [phone] [facility] 10-21-2024 History of Presen t illness [...] Living Walking: Independent. No, does not meet [facility] Definition for Functional Dependency. Eating: [...] further discuss community resources. Referral placed to [facility] PCP for in-home primary care. ? HEALTHCARE [...] 22, 2024 TIME: 1:00 PM PAGER/CONTACT #: [phone] documented in this encounter [facility] 10-20-2024 Telephone encounter Note Waiting for palliative care nursing to consult I think it is fine to just be on the levothyroxine as that is the only medication she is taking for the past 2 months. Regards, Vanessa Her MD [facility] 10-20-2024 Miscellaneous Notes Waiting for palliative care nursing to consult I think it is fine to just be on the levothyroxine as that is the only medication she is taking for the past 2 months. Regards, Vanessa Her MD Hello, We called patient to set up shipping on monthly med box. Avila informed phone technician patient has about 2 months left of meds as she hasn't been taking regularly. stated he made provider aware of situation and is planning on working with office to simplify medication regimen. We will f/u with patient in 1 month. Nehal Sunshine RPh documented in this encounter [facility] 10-20-2024 Telephone encounter Note Hello, We called patient to set up shipping on monthly med box. Avila informed phone technician patient has about 2 months left of meds as she hasn't been taking regularly. stated he made provider aware of situation and is planning on working with office to simplify medication regimen. We will f/u with patient in 1 month. Nehal Sunshine RPh [facility] 10-20-2024 Telephone encounter Note Shanon received message back that [facility] Palliative Care Dept, will be reaching out to patient/spouse to schedule consult with their dept. [facility] 10-20-2024 Miscellaneous Notes Shanon received message back that [facility] Palliative Care Dept, will be reaching out to patient/spouse to schedule consult with their dept. Shanon notes that referral was also sent to [facility] in regards to requesting palliative care services. This Sw also received consult for palliative care services. Sw will check with Home Care and see what their response is to setting up patient care services. documented in this encounter [facility] 10-19-2024 Telephone encounter Note Sw notes that referral was also sent to Home Care in regards to requesting palliative care services. This Sw also received consult for palliative care services. Sw will check with Home Care and see what their response is to setting up patient care services. [facility] 10-16-2024 Instructions Vanessa Her MD - 10/16/2024 [...] contact our office. documented in this encounter [facility] 10-16-2024 Note HNO ID: [id number] Author: VANESSA HER MD Service: ? Author [...] hr tablet pravastatin (PRAVACHOL) 20 mg tablet [facility] Maintenance Medicare Annual Wellness Visit DTaP,Tdap,Td [...] Alzheimer's dementia, unspecif (more content not included)... [facility] 10-16-2024 History of Presen t illness [...] any unintended typographical errors. Recording using ambient StemSave software for draft documentation of the visit was discussed with the patient/authorized quality audit representative; all questions welcomed and answered. Patient/authorized quality audit representative agreed to proceed Vanessa Her MD documented in this encounter [facility] 09-14-2024 Note HNO ID: [id number] Author: MILANA DIETRICH MA Service: ? Author Type: Marketing Ambassador Type: Progress Notes Filed: 09/14/2024 09:42 Note [...] orders: Medicare Annual Wellness Visit 10/16/[address] [facility] with VANESSA HER - medicare wellness 03/03/2025 in [facility] with JUANA PRABHAKAR - follow up Navigation Signature: Milana Dietrich MA September 14, 2024 9:32 AM [facility] 09-14-2024 History of Presen t illness [...] orders: Medicare Annual Wellness Visit 10/16/2024 in [facility] with VANESSA HER - medicare wellness 03/03/2025 in [facility] with JUANA PRABHAKAR - follow up Navigation Signature: Milana Dietrich MA September 14, 2024 9:32 AM documented in this encounter [facility] 09-14-2024 Note Patient Outreach (NE TNAV) GERTRUDE FLORES ([id number]) 1940 F Date Time Provider Department 09/14/24 [...] orders: Medicare Annual Wellness Visit 10/16/[address] 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 Author [...] excuse any unintended typographical errors. Recording using RegBinder software for draft documentation of the visit was discussed with the patient/authorized quality audit representative; all questions welcomed and answered. Patient/authorized quality audit representative agreed to proceed Vanessa Her MD [facility] 08-21-2024 History of Presen t illness [...] excuse any unintended typographical errors. Recording using RegBinder software for draft documentation of the visit was discussed with the patient/authorized quality audit representative; all questions welcomed and answered. Patient/authorized quality audit representative agreed to proceed Vanessa Her MD documented in this encounter [facility] 08-21-2024 Instructions Vanessa Her MD - 08/21/2024 [...] daily. This prescription has been sent to [facility] and includes a 90-day supply [...] guidance or support. documented in this encounter [facility] 08-11-2024 Note HNO ID: [id number] Author: SERA LOPEZ RN Service: ? Author [...] assisted Gertrude and her to their car. [facility] 06-10-2024 Instructions Juana Prabhakar APRN.CNP - 06/10/2024 11:49 AM EDT Echo shows that the heart is strong >> normal heart pumping is normal. Continue all your same medications Stay hydrated Low salt diet Follow up in 1 year >> or sooner if needed documented in this encounter [facility] 06-10-2024 Note HNO ID: [id number] Author: JUANA PRABHAKAR APRN.[facility] Service: ? Author Type: Nurse Practitioner Type: Progress Notes Filed: 06/22/2024 12:55 Note Text: [facility] [place] [facility] Department of Cardiovascular Medicine SECTION [...] prior to the follow up. Juana Prabhakar APRN.[facility] Cardiology Nurse Practitioner Section of [facility] Cardiology [facility] Dept of Cardiovascular Medicine [facility] [place] [address] Office Office June 10, 2024 11:39 AM This note was partially generated using [employer] ([employer]) voice recognition system and may contain errors [...] FOR LVH, MAY BE NORMAL VARIANT ( Cooper product ) ABNORMAL ECG Confirmed by MD [...] 87 04/07/2021 105 (more content not included)... [facility] 06-10-2024 History of Presen t illness Narrative Images from the original note were not included. [facility] [place] [facility] Department of Cardiovascular Medicine SECTION [...] prior to the follow up. Juana Prabhakar APRN.[facility] Cardiology Nurse Practitioner Section of [facility] Dept of Cardiovascular Medicine [facility] [place] [address] Office Office June 10, 2024 11:39 AM This note was partially generated using [employer] ([employer]) voice recognition system and may contain errors [...] and ROS obtained by others. Juana Prabhakar APRN.[employer] RED[employer] CL[employer] CURRENT MEDICATIONS: Current Outpatient Medications Medication Sig [...] for this visit. documented in this encounter [facility] 05-19-2024 Note HNO ID: [id number] Author: VANESSA HER MD Service: ? Author [...] to nail issues, . 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 senior operations manager , they had a great experience with [...] and discussed today Current Outpatient Medications: Ipratropium [place] (ATROVENT) 21 mcg (0.03 %) nasal spray famotidine (PEPCID) 40 mg tablet metoprolol succinate ER (TOPROL XL) 50 mg 24 hr tablet pravastatin (PRAVACHOL) 20 mg tablet apixaban (ELIQUIS) 5 mg tab(s) amLODIPine (NORVASC) 2.5 mg tablet Ferrous Gluconate 225 mg (27 mg iron) tab levothyroxine (LEVOXYL) 112 mcg tablet sertraline (ZOLOFT) 50 mg tablet memantine (NAMENDA) 5 mg tablet Nznsjoyidbwyk-Pdsrjneb-Oympdw (CENTRUM SILVER) Tab Review of Systems CONSTITUTIONAL: [...] CITALOPRAM 10 MG (more content not included)... [facility] 05-19-2024 History of Presen t illness [...] to nail issues, . 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 senior operations manager , they had a great experience with [...] and discussed today Current Outpatient Medications: Ipratropium [place] (ATROVENT) 21 mcg (0.03 %) nasal spray famotidine (PEPCID) 40 mg tablet metoprolol succinate ER (TOPROL XL) 50 mg 24 hr tablet pravastatin (PRAVACHOL) 20 mg tablet apixaban (ELIQUIS) 5 mg tab(s) amLODIPine (NORVASC) 2.5 mg tablet Ferrous Gluconate 225 mg (27 mg iron) tab levothyroxine (LEVOXYL) 112 mcg tablet sertraline (ZOLOFT) 50 mg tablet memantine (NAMENDA) 5 mg tablet Yodwbkkbraros-Xmdtvcen-Uldkgj (CENTRUM SILVER) Tab Review of Systems CONSTITUTIONAL: [...] note. Please excuse any unintended typographical errors. [place] documented in this encounter [facility] 04-07-2024 Telephone encounter Note Patient has been identified by name and date of : Yes Patient phones for refill(s): Requested Prescriptions Pending Prescriptions Disp Refills Ipratropium [place] (ATROVENT) 21 mcg (0.03 %) nasal spray 30 mL 2 Sig: Use 2 Sprays in the nose every 12 hours. Date of last office visit in primary care: 02/17/2024 Date of next office visit in primary care: 05/19/2024 Please advise. Thank you. Maryan Johnson LPN. [facility] 04-07-2024 Miscellaneous Notes Patient has been identified by name and date of : Yes Patient phones for refill(s): Requested Prescriptions Pending Prescriptions Disp Refills Ipratropium [place] (ATROVENT) 21 mcg (0.03 %) nasal spray 30 mL 2 Sig: Use 2 Sprays in the nose every 12 hours. Date of last office visit in primary care: 02/17/2024 Date of next office visit in primary care: 05/19/2024 Please advise. Thank you. Maryan Johnson LPN. documented in this encounter [facility] 03-09-2024 Note HNO ID: [id number] Author: ROSSY CROCKER, DO Service: ? Author Type: Physician Type: Progress Notes Filed: 03/09/2024 12:01 Note Text: [facility] SECTION OF [facility]OLOG[facility] OUTPATIENT VISIT DATE March 09, 2024 PRIMARY CARE PHYSICIAN: Vanessa Her [address] [place] [address] HISTORY OF PRESENT ILLNESS: Ms. Flores is [...] repair SALPINGO-OOPHORECTOMY COMPL/ (more content not included)... [facility] 03-09-2024 History of Presen t illness Narrative Images from the original note were not included. [facility] OUTPATIENT VISIT DATE March 09, 2024 PRIMARY CARE PHYSICIAN: Vanessa Her [address] [place] [address] HISTORY OF PRESENT ILLNESS: Ms. Flores is [...] tablet take 1 tablet every day Ipratropium [place] (ATROVENT) 21 mcg (0.03 %) nasal spray Use 2 Sprays in the nose every 12 hours. Eboesbzjwbmui-Gwtgygah-Svmmgi (CENTRUM SILVER) Tab Take 1 tablet by mouth once daily. Rossy Crocker DO, [facility] Security Sales Manager, [facility] Security Sales Manager, [facility] Security Sales Manager, [facility] Security Sales Manager, [facility] Security Sales Manager, [facility] Clinical Coremaker Pipe Profressor of Medicine, [facility] Staff Hydraulic Specialist, Walter [facility] Department of Cardiovascular Medicine/Heart and Vascular [place], [facility] Please note: This note has been produced using speech recognition software and may contain errors related to that system including nilay, punctuation, spelling, words, gender and phrases that may be inappropriate. documented in this encounter [facility] 02-17-2024 Note HNO ID: [id number] Author: VANESSA HER MD Service: ? Author Type: Physician Type: Progress Notes Filed: 02/17/2024 18:23 Note Text: [facility] Initial Consult Gertrude Flores is a 83 year old year old female who comes for Comprehensive Geriatric Assessment. Pt accompanied by: , Sarthak Flores Caregivers involved in care: HPI: Here for follow up of AD. Last visit we had given information on [facility], the has yet to call [...] D, Transportation:D, Medications: {D, Handle Finances: D. (Blanca scale): 8 ALLERGIES Allergen Reactions Bactrim Ds [...] They have looked into a facility near [place] which is more like a memory unit [...] to us regarding that. Vanessa Her MD [facility] 02-17-2024 History of Presen t illness Narrative [facility] Initial Consult Gertrude Flores [...] are available for him. Continue the Namenda. Cahrliesed pill packs and he will get back to us if he wants to use it. We also discussed meal delivery if he would be interested in that. He said he will get back to us regarding that. Vanessa Her MD documented in this encounter [facility] 02-04-2024 Note Patient Outreach (IN TMMN) GERTRUDE FLORES ([id number]) 1940 F Date Time Provider Department 02/04/24 [...] [E78.2] Order(s):BASIC METABOLIC PANEL [SQBMP] Order #: [id number] FUTURE LIPID PANEL BASIC [SQLIPB] Order #: [id number] FUTURE Prescriptions as of 02/07/2024 - Ferrous [...] take 1 tablet every day - Ipratropium [place] (ATROVENT) 21 mcg (0.03 %) nasal spray Use 2 Sprays in the nose every 12 hours. 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 Yes Social History: Primary language: French Marital Status: Living situation: Home w/ Spouse Socially engaged? (participates in activities such as clubs, tenriism, community center, sports, games, visiting friends/relatives, etc?): NO they stopped doing this for a while Caregiver [place] and Stress Are your feeling overwhelmed? NO [...] , Taking? , Authorizing Provider Erica Noonan APRN.COUPON REDEMPTION CLERK Medication sertraline (ZOLOFT) 50 mg tablet, Sig Take 1 tablet by mouth once daily., Start Date 10/01/23, End Date , Taking? , Authorizing Provider Erica Noonan APRN.COUPON REDEMPTION CLERK Medication metoprolol succinate ER (TOPROL XL) 50 mg 24 hr tablet, Sig take 1 tablet every day, Start Date 06/21/23, End Date , Taking? , Authorizing Provider Meagan Lambert APRN.COUPON REDEMPTION CLERK Medication famotidine (PEPCID) 40 mg tablet, Sig take 1 tablet every day, Start Date 05/08/23, End Date , Taking? , Authorizing Provider Meagan Lambert APRN.COUPON REDEMPTION CLERK Medication memantine (NAMENDA) 5 mg tablet, Sig Take 1 tablet by mouth two times a day. Please start by taking 5 mgs once a day and increase to taking 5 mgs 2 times a day, Start Date 04/22/23, End Date , Taking? , Authorizing Provider Meagan Lambert APRN.COUPON REDEMPTION CLERK Medication pravastatin (PRAVACHOL) 20 mg tablet, Sig take 1 tablet every day, Start Date 03/04/23, End Date , Taking? , Authorizing Provider Yamilet Choe APRN.COUPON REDEMPTION CLERK Medication Ipratropium [place] (ATROVENT) 21 mcg (0.03 %) nasal spray, Sig Use 2 Sprays in the nose every 12 hours., Start Date 10/09/22, End Date , Taking? 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 He is expecting in a couple years he will not be in the condition to drive. is looking for resources to help him take care of her. Currently very occasionally he has her sister come down from [place] to help. The rest of the time he has to be with her because she is unable to be left alone at home due to 1 episode of wandering and he is doing all the IADLs and all the maintenance and paperwork for both of them. Plan: To get him information for resources especially with [facility] Kincaid, [facility] and any benefits at the [place] can give because he is a . [...] mins with the patient Vanessa Her MD [facility] documented in this encounter [facility] 11-13-2023 Nurse Note MMSE and GDS completed with patient and scores entered into questionnaire. Kinga Gonzalez MA [facility] 11-13-2023 Nurse Note MMSE and GDS completed with patient and scores entered into questionnaire. Kinga Gonzalez MA documented in this encounter [facility] 10-24-2023 Miscellaneous Notes Order placed. Please assist with scheduling for [place] location. Thank you Meagan Lambert APRN.CNP Consult to Geriatric pended, d/t demential and behaviors. Please review and advise. Thank you. Would like to be seen in [address] Gabe Wheat LPN October 24, 2023 10:16 AM documented in this encounter [facility] 10-24-2023 Telephone encounter Note Order placed. Please assist with scheduling for [place] location. Thank you Meagan Lambert APRN.CNP [facility] 10-24-2023 Instructions Vanessa Her MD - 10/24/2023 [...] opens any doors. documented in this encounter [facility] 10-24-2023 Telephone encounter Note Consult to Geriatric pended, d/t demential and behaviors. Please review and advise. Thank you. Would like to be seen in [address] Gabe Wheat LPN October 24, 2023 10:16 AM [facility] 10-24-2023 History of Presen t illness Narrative [...] tablet take 1 tablet every day Ipratropium [place] (ATROVENT) 21 mcg (0.03 %) nasal spray Use 2 Sprays in the nose every 12 hours. Ujtlmuqyyaklg-Ljgkzebv-Iixfkh (CENTRUM SILVER) Tab Take 1 tablet by [...] Vanessa Her MD documented in this encounter [facility] 10-01-2023 Telephone encounter Note Patient has been [...] Please advise. Thank you. Maryan Johnson LPN. [facility] 10-01-2023 Miscellaneous Notes Patient has been identified [...] Maryan Johnson LPN. documented in this encounter [facility] 09-02-2023 Telephone encounter Note Pharmacy request denied. Patient needs to contact office for refills. Kinga Gonzalez MA [facility] 09-02-2023 Miscellaneous Notes Pharmacy request denied. Patient needs to contact office for refills. Kinga Gonzalez MA documented in this encounter [facility] 06-24-2023 History of Presen t illness Narrative [...] GER Bynum PT documented in this encounter [facility] 06-17-2023 History of Presen t illness Narrative [...] GER Bynum PT documented in this encounter [facility] 06-10-2023 History of Presen t illness Narrative [...] GER Bynum PT documented in this encounter [facility] 06-03-2023 History of Presen t illness Narrative [...] Tanna Orellana PT documented in this encounter [facility] 05-27-2023 History of Presen t illness Narrative [...] 05/03/23 through 07/02/23 Goals updated on 05/27/2023. [place] in home exercise program. (Partially Met)- fair [...] Patient to be seen for Therapeutic exercise (28441), Manual therapy (27952), Self-long term management (59689), Gait Training (10260), Patient/Family/Caregiver Education PLAN FOR NEXT VISIT: May [...] Tanna Orellana PT documented in this encounter [facility] 05-10-2023 History of Presen t illness Narrative [...] GER Bynum PT documented in this encounter [facility] 05-08-2023 Miscellaneous Notes Patient has been identified [...] Radha Ariza LPN. documented in this encounter [facility] 05-07-2023 History of Presen t illness Narrative [...] 1 tablet by mouth once daily. Ipratropium [place] (ATROVENT) 21 mcg (0.03 %) nasal spray Use 2 Sprays in the nose every 12 hours. levothyroxine (LEVOXYL) 112 mcg tablet Take 1 tablet by mouth once daily. metoprolol succinate ER (TOPROL XL) 50 mg 24 hr tablet Take 1 tablet by mouth once daily. famotidine (PEPCID) 40 mg tablet Take 1 tablet by mouth once daily. Frwrmmemodjom-Ygswffdt-Fwekko (CENTRUM SILVER) Tab Take 1 tablet by [...] thickness. Bg Castillo DPM Podiatry [address] [facility] [address] Dept: [phone] Dept AMB ROOMING INTAKE FLOWSHEET DATA Pain [...] today for appointment. documented in this encounter [facility] 05-07-2023 History of Presen t illness Narrative [...] PATIENT PRESENTS WITH AN IMPLANTABLE OR ATTACHED CALIBRATION SPECIALIST: No RADIOLOGY DEPARTMENT: General X-ray: Exam(s) Completed: Lower Extremity X-Ray(s): Foot, Right and Wt. Bearing PERIPHERAL IV DATA: Not applicable SIGNED BY: RT Brad(R) May 07, 2023 9:56 AM documented in this encounter [facility] 05-03-2023 History of Presen t illness Narrative Program_ID:[id number] Access Code: [email or web address] URL: [email or web address] Date: 05-03-2023 Prepared By: Tanna Orellana Program [...] of Care: created on 05/03/23 through 07/02/23 [place] in home exercise program. Patient will decrease [...] Planned: 8 Planned Treatment Interventions: Therapeutic exercise (48566), Manual therapy (06873), Self-long term management (19051), Gait Training (98266), Patient/Family/Caregiver Education PLAN FOR NEXT VISIT: Assess [...] Knee Knee Special Tests: Anterior Drawer, Christina, Bibi's Test, Valgus stress at 0 degrees, Valgus [...] Tanna Orellana PT documented in this encounter [facility] 2023 History of Presen t illness Narrative [...] Admin: COVID-19 vaccine, age 12+ yr, season ([employer]) 10/17/2022 Postponed until 10/18/2023 by Meagan Lambert APRN.COUPON REDEMPTION CLERK (Declined at this time) 02/03/2022 Imm Admin: COVID-19 vaccine, age 12+ yr, bivalent ([employer]) 09/20/2021 Imm Admin: COVID-19 original vaccine, age [...] 1 tablet by mouth once daily. Ipratropium [place] (ATROVENT) 21 mcg (0.03 %) nasal spray [...] taking 5 mgs 2 times a day Vtrqyycahtgwa-Mpowjoft-Fckptz (CENTRUM SILVER) Tab Take 1 tablet by [...] tenderness or frontal sinus tenderness. Mouth/Throat: Lips: [place]. No lesions. Mouth: Mucous membranes are moist. [...] which included preparing to see the patient, btxs-sk-jnwl patient care, completing clinical documentation, performing a [...] 2023 1:04 PM documented in this encounter [facility] 2023 Instructions Kinga Melendrez PA-C - 2023 [...] you with PAXLOVID for the treatment of lutr-yr-xfujguhm coronavirus disease (COVID-19) caused by the SARS-CoV-2 [...] make PAXLOVID available for the treatment of gvfo-hn-tzyshsrk COVID-19 in adults and children 12 years [...] virus. COVID-19 illnesses have ranged from very ibaj-fd-yhzmja, including illness resulting in . While information [...] available under EUA for the treatment of yqjs-oi-yzhtwexf COVID-19 in adults and children 12 years [...] of using PAXLOVID to treat children with socz-lx-ulxmqwcj COVID-19. What is the most important information [...] o ranolazine o rifampin o rifapentine o Tony s Wort (hypericum perforatum) o sildenafil (Revatio [...] the medicines you take, including prescription and toln-zit-xzgffmh medicines, vitamins, and herbal supplements. Your healthcare [...] morning or evening, depending on when you picker/puller your prescription, or as your healthcare provider [...] PAXLOVID is FDA-approved for the treatment of idyj-tb-urzhvdrs COVID-19 in certain adults; however, there are not sufficient quantities of the approved presentations (i.e., dose packs) of PAXLOVID at this time. This EUA continues to authorize the emergency use of PAXLOVID for the approved patient population to ensure continued access in order to meet the public health need. VEKLURY (remdesivir) is FDA-approved for the treatment of itmb-ha-sdxrhpma COVID-19 in certain adults and children. Talk with your healthcare provider to see if VEKLURY is appropriate for you. For information on the emergency use of other medicines that are authorized by FDA to treat people with COVID-19, please go to https://www.fda.gov/emergency-pr eccpefhjcs-poc-wkqdmrjf/armando-maru hernandezv-ghraxsyrdw-ile-policy-framewor k/ddljvtowj-bhm-pwthlizlafxxj. Your healthcare provider may talk with you [...] examples of PAXLOVID Dose Packs) to FDA [employer] at www.fda.gov/medwatch or call 0-129-HKB-4425 or you can report side effects to [employer]. at the contact information provided below. How [...] PAXLOVID may also be found at https://www.fda.gov/emergency-pr fpituzzxsj-fth-hlshuqbp/armando-maru o-yxldzycuwg-xvz-policy-framewor k/ldaekayprt-rxzlvj-ljauoeczz. How can I learn more about COVID-19? Ask your healthcare provider. Visit https://www.cdc.gov/COVID19. Contact your local or state public health department. What is an Emergency Use Authorization (EUA)? The [place] FDA has made PAXLOVID available under an emergency access mechanism called an Emergency Use Authorization (EUA). The EUA is supported by a [place] of Health and Human Services ([facility]) declaration that circumstances exist to justify [...] call the telephone number provided below. Website: [employer]fm Telephone number: (1-877-c19-pack) Distributed by [employer] [place] [address] [id number] Revised: 07/2022 documented in this encounter [facility] 03-07-2023 Note HNO ID: [id number] Author: Rossy Crocker, DO Service: ? Author Type: Physician Type: Progress Notes Filed: 03/07/2023 2:03 PM Note Text: [facility] SECTION OF [facility] OUTPATIENT VISIT DATE March 07, 2023 PRIMARY CARE PHYSICIAN: Vanessa Her [address] [place] [address] HISTORY OF PRESENT ILLNESS: Ms. Flores is [...] Cancer No Fa (more content not included)... [facility] 03-07-2023 History of Presen t illness Narrative Images from the original note were not included. [facility] SECTION OF [facility] OUTPATIENT VISIT DATE March 07, 2023 PRIMARY CARE PHYSICIAN: Vanessa Her [address] [place] [id number] HISTORY OF PRESENT ILLNESS: Ms. Flores is [...] 1 tablet by mouth once daily. Ipratropium [place] (ATROVENT) 21 mcg (0.03 %) nasal spray [...] taking 5 mgs 2 times a day Entwrfxntinax-Cisjmhwi-Qwjtzn (CENTRUM SILVER) Tab Take 1 tablet by mouth once daily. donepezil (ARICEPT) 10 mg disintegrating tablet Take 1 tablet by mouth once daily. (Patient not taking: Reported on 03/07/2023) ECG NSR Rossy Crocker DO, FACC, FACOI Security Sales Manager, [facility] Security Sales Manager, [facility] Security Sales Manager, [facility] Security Sales Manager, [facility] Security Sales Manager, [facility] Clinical Coremaker Pipe Profressor of Medicine, [facility] Staff Hydraulic Specialist, Walter Tomisich Department of Cardiovascular Medicine/Heart and Vascular [place], [facility] Please note: This note has been produced using speech recognition software and may contain errors related to that system including nilay, punctuation, spelling, words, gender and phrases that may be inappropriate. documented in this encounter [facility] 03-04-2023 Miscellaneous Notes Please call Gertrude to schedule an updated cardiology appointment. IONA 12/12/20 Irish Macias scheduled documented in this encounter [facility] 11-20-2022 Instructions Lacie Madrigal LPN - 11/20/2022 [...] feel free to call our office at [phone] and ask to be transferred to General Surgery. Thank you for choosing [facility] - General Surgery. documented in this encounter [facility] 11-20-2022 History of Presen t illness Narrative Preoperative diagnosis: 2 cm subcutaneous lesion to left arm Postoperative diagnosis: The same Procedure: Excision of a 2 cm subcutaneous lesion the left arm Surgeon: [place] Procedure: Left arm was sterilely prepped and [...] the procedure well. documented in this encounter [facility] 11-20-2022 Nurse Note UNIVERSAL PROTOCOL / SAFETY [...] Lacie Madrigal LPN documented in this encounter [facility] 11-13-2022 History of Presen t illness Narrative HISTORY AND PHYSICAL Gertrude Flores 1940 REFERRING PHYSICIAN: Meagan Lambert APRN.COUPON REDEMPTION CLERK CHIEF COMPLAINT: Consult (Soft tissue mass Left [...] 1 tablet by mouth once daily. Ipratropium [place] (ATROVENT) 21 mcg (0.03 %) nasal spray [...] taking 5 mgs 2 times a day Sxdyicibbbxxq-Lymxzbcp-Nnwfsg (CENTRUM SILVER) Tab Take 1 tablet by [...] entered by the nurse and reviewed by pr Nursing Notes: Elvie Majano 11/13/2022 1:40 PM [...] Funes III, MD documented in this encounter [facility] 11-13-2022 Nurse Note REVIEW OF SYSTEMS: General: [...] Elvie Majano MA documented in this encounter [facility] 11-05-2022 Miscellaneous Notes Called and scheduled appt [...] Meagan Lambert APRN.BAHMAN documented in this encounter [facility] 10-18-2022 Note HNO ID: [id number] Author: Dorota Norris RT(R) Service: ? Author Type: Technologist Type: Progress Notes Filed: 10/18/2022 9:13 AM Note Text: Radiology Service Progress Note PATIENT NAME: Gertrude [...] RDMS, TONIO October 18, 2022 9:13 AM [facility] 10-18-2022 History of Presen t illness Narrative [...] 2022 9:13 AM documented in this encounter [facility] 10-09-2022 Miscellaneous Notes Patient has been identified by name and date of : No Patient phones for refill(s): Requested Prescriptions Pending Prescriptions Disp Refills Ipratropium [place] (ATROVENT) 21 mcg (0.03 %) nasal spray [...] Radha Ferreira LPN documented in this encounter [facility] 10-08-2022 Miscellaneous Notes Called and relied message [...] IONA 12/12/20 [place] documented in this encounter [facility] 08-01-2022 Miscellaneous Notes Told patient's path reports. Patient is doing well, he states can't even tell surgery was done there. Patient to follow up as per needed. documented in this encounter [facility] 07-23-2022 Instructions Lacie Madrigal LPN - 07/23/2022 [...] feel free to call our office at [phone] and ask to be transferred to General Surgery. Thank you for choosing [facility] - General Surgery. documented in this encounter [facility] 07-23-2022 History of Presen t illness Narrative Here for skin cyst removal of back at bra line. Procedure: excision of skin cyst of posterior mid back (15311) Preoperative diagnosis: skin cyst of mid posterior [...] Patient acknowledges above. documented in this encounter [facility] 07-23-2022 Nurse Note UNIVERSAL PROTOCOL / SAFETY [...] Lacie Madrigal LPN documented in this encounter [facility] 07-12-2022 Miscellaneous Notes See recent result telephone encounter. TSH low so dose decreased to 1 tablet daily. Script updated and sent to pharmacy. Thank you Meagan Lambert APRN.COUPON REDEMPTION CLERK This is because of her dosage of [...] before completing appeal. documented in this encounter [facility] 07-10-2022 Nurse Note REVIEW OF SYSTEMS: General: [...] Lacie Madrigal LPN documented in this encounter [facility] 04-18-2023 History of Presen t illness Narrative [...] 5 mgs 2 times a day Ipratropium [place] (ATROVENT) 21 mcg (0.03 %) nasal spray Use 2 Sprays in the nose every 12 hours. pravastatin (PRAVACHOL) 20 mg tablet Take 1 tablet by mouth once daily. Ynkyassadmozi-Llkjkewp-Fdjudf (CENTRUM SILVER) Tab Take 1 tablet by [...] entered by the nurse and reviewed by pr Nursing Notes: Lacie Madrigal LPN 07/10/2022 9:09 [...] Oneyda Ramos MD documented in this encounter [facility] 03-27-2022 Miscellaneous Notes IONA: 10/05/2021 Last refill: [...] Dc [place] Ma documented in this encounter [facility] 12-27-2021 Miscellaneous Notes IONA: 12/12/20 [place] NOV:None scheduled documented in this encounter [facility] 12-27-2021 Miscellaneous Notes Patient has been identified by name and date of : Yes Patient phones for refill(s): Requested Prescriptions Pending Prescriptions Disp Refills Ipratropium [place] (ATROVENT) 21 mcg (0.03 %) nasal spray 30 mL 2 Sig: Use 2 Sprays in the nose every 12 hours. Date of last office visit in primary care: 10/05/21 Last 2 Encounter Wt Readings: Date: Wt: 11/16/2021 88 kg (194 lb) 10/05/2021 89.8 kg (198 lb) Previous labs/tests for medication: Not applicable Please advise. Thank you. Radha Ferreira LPN documented in this encounter [facility] 11-21-2021 History of Presen t illness Narrative [...] 2021 10:30 AM documented in this encounter [facility] 11-16-2021 History of Presen t illness Narrative CHIEF COMPLAINT: Patient presents with: Nausea & Vomiting This consult was requested by Vanessa Her MD for an opinion regarding nausea, vomiting. My final recommendations will be communicated to the requesting health care provider by way of the shared medical record for internal providers or letter via the [employer] for external providers. HPI: Gertrude Flores is a 81 year old female who presents for Nausea & Vomiting. PMHx of hx colon polyps, GERD, HTN, CKD stage three, dementia tells me that back in May, patient woke up one morning and didn't feel well at all. She proceeded to vomit and vomit. [place] very weak, ambulance was called and went [...] Abs Lymph 1.00 - 4.00 k/uL 1.40 [place]% % 8.9 Abs [place] <0.87 k/uL 0.50 [place]% % 3.6 Abs [...] Take on empty stomach. For thyroid. Ipratropium [place] (ATROVENT) 21 mcg (0.03 %) nasal spray Use 2 Sprays in the nose every 12 hours. memantine (NAMENDA) 5 mg tablet Take 1 tablet by mouth twice daily. Please start by taking 5 mgs once a day and increase to taking 5 mgs 2 times a day pravastatin (PRAVACHOL) 20 mg tablet Take 1 tablet by mouth once daily. Nifhjpdzspwwn-Eedwalok-Cqrbyz (CENTRUM SILVER) Tab Take 1 tablet by [...] with more than 50% of the total xsei-si-erfw time of the visit in counseling / coordination of care. I have confirmed and edited as necessary, the PFSH and ROS obtained by others. Faith William PA-C November 16, 2021 11:00 AM documented in this encounter [facility] 10-24-2021 History of Presen t illness Narrative [...] TIME: 10:57 AM documented in this encounter [facility] 10-05-2021 History of Presen t illness Narrative [...] tablet levothyroxine (LEVOXYL) 112 mcg tablet Ipratropium [place] (ATROVENT) 21 mcg (0.03 %) nasal spray memantine (NAMENDA) 5 mg tablet pravastatin (PRAVACHOL) 20 mg tablet metoprolol succinate ER (TOPROL XL) 50 mg 24 hr tablet Bwglqfgstfcfz-Fyyykcyi-Zzyqjs (CENTRUM SILVER) Tab sertraline (ZOLOFT) 25 mg [...] Vanessa Her MD documented in this encounter [facility] 09-26-2021 Miscellaneous Notes The following approved medication requests have been transmitted electronically. Signed Prescriptions Disp Refills donepezil (ARICEPT) 10 mg disintegrating tablet 90 tablet 1 Sig: Take 1 tablet by mouth once daily. BLANCA: No Authorizing Provider: JOAQUIN PAALCIOS Ordering User: GREGORY HERNANDEZ PA-C documented in this encounter [facility] 07-11-2021 Instructions Joaquin Palacios APRN.COUPON REDEMPTION CLERK - 07/11/2021 2:40 PM EDT Thank you [...] been sent to your pharmacy. 2. Call [phone] to schedule Speech Therapy 3. Keep track of any questions you have that you would like to discuss next time. You next visit should be scheduled with me in 2 months. You can schedule this before you leave today or by calling [phone]. If you need to reach me for any reason prior to your next visit, please contact me through [employer] or call [phone]. Ways to keep your brain healthy: Follow [...] resources are: The Alzheimer's Association (web site: alz.org/gary) available 24 hours a day, 7 days per week. Contact: Local: ; Toll free: [phone] Family Caregiver [place] (web site: Caregiver.org) [employer] Joseph-- a secure online solution for quality information, support, and resources for family caregivers. Contact: Toll-free number: [phone] Alzheimers.gov - Find Alzheimer disease and related dementias information, resources, research and more. CAREGIVER RELIEF PROGRAM The [facility] Alzheimer's Association has a program aimed [...] requirements, please call the Alziemr's Association at [phone] or e mail: . 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 Katelyn REARDON [facility]: Date: Provider: ALEYXS MOCA Date: 06/06/202108/21 LV FUNCTION: Date: 06/06/2021 Independent with ADLs, requires assisstance with IADLs finances and meds and no longer drives. CURRENT TREATMENT: Aricept 10 mg every day Namenda 5 mg BID (CKD) Patient Accompanied by: IDENTIFYING INFORMATION Gertrude Flores is a 81 year old, White, female who presents to [facility] for a report visit. Gertrude Flores is being followed for work up for memory loss. She is here today for a report visit following her MRI. Gertrude Flores has a past medical history significant for previous dx of dementia, B12 deficiency, diverticulitis, HTN, CKD, GERD, GIB in 2001 and hypothyroidism. SUBJECTIVE: Patient's last visit with [facility] was 06/06/[address] Zepeda for initial [facility] assessment. Reported around 6 years of [...] full medication list reviewed by Joaquin Palacios APRN.COUPON REDEMPTION CLERK DIAGNOSTIC RESULTS: MOST RECENT MRI: Date: 07/11/2021 [...] (203 lb 3.2 oz) BMI 34.88 kg/m Dar Cognitive Assessment (MoCA)- not assessed today ------- [...] which included preparing to see the patient, elry-xv-opeq patient care, performing a medically appropriate examination, completing clinical documentation, and on counseling/ educating the patient and the family. Dr. Zepeda was present for a portion of this visit and is in agreement with the plan stated above. He reviewed the MRI images. Joaquin Palacios MSN, RADIO RECORDER, SENIOR TECHNICAL PROJECT MANAGER-C Family Nurse Practitioner [facility] CC: 1. Vanessa Her MD, (fax) [phone] documented in this encounter [facility] 07-11-2021 Nurse Note Gertrude Flores is a [...] BMI 34.88 kg/m documented in this encounter [facility] 01-23-2016 History of Past i llness Narrative [...] of this encounter (statuses as of 06/29/2021) [facility] History of Past illness Narrative* Problem Noted [...] of this encounter (statuses as of 06/29/2021) [facility] of [facility] Narrative* Problem Noted [...] of this encounter (statuses as of 06/29/2021) [facility] Narrative* Problem Noted [...] of this encounter (statuses as of 07/12/2021) [facility] N[facility]ative* Problem Noted [...] of this encounter (statuses as of 09/22/2021) [facility] Narrative* Problem Noted [...] of this encounter (statuses as of 09/26/2021) [facility] N[facility]ative* Problem Noted [...] of this encounter (statuses as of 10/05/2021) [facility] Narrative* Problem Noted [...] of this encounter (statuses as of 10/25/2021) [facility] N[facility]ative* Problem Noted [...] of this encounter (statuses as of 11/06/2021) [facility] N[facility]ative* Problem Noted [...] of this encounter (statuses as of 11/16/2021) [facility] N[facility]ative* Problem Noted [...] of this encounter (statuses as of 11/22/2021) [facility] N[facility]ative* Problem Noted [...] of this encounter (statuses as of 12/27/2021) [facility] N[facility]ative* Problem Noted [...] of this encounter (statuses as of 12/28/2021) [facility] N[facility]ative* Problem Noted [...] of this encounter (statuses as of 03/29/2022) [facility] N[facility]* Problem Noted [...] of this encounter (statuses as of 07/12/2022) [facility] N[facility]* Problem Noted [...] of this encounter (statuses as of 07/13/2022) [facility] N[facility]* Problem Noted [...] of this encounter (statuses as of 07/25/2022) [facility] N[facility]ative* Problem Noted [...] of this encounter (statuses as of 08/02/2022) [facility] N[facility]* Problem Noted [...] of this encounter (statuses as of 10/08/2022) [facility] N[facility]* Problem Noted [...] of this encounter (statuses as of 10/10/2022) [facility] N[facility]* Problem Noted [...] of this encounter (statuses as of 10/19/2022) [facility] N[facility]* Problem Noted [...] of this encounter (statuses as of 11/06/2022) [facility] N[facility]* Problem Noted [...] of this encounter (statuses as of 11/14/2022) [facility] N[facility]* Problem Noted [...] of this encounter (statuses as of 11/21/2022) [facility] N[facility]* Problem Noted [...] of this encounter (statuses as of 03/05/2023) [facility]* Problem Noted [...] of this encounter (statuses as of 03/08/2023) [facility] N[facility]* Problem Noted [...] of this encounter (statuses as of 2023) [facility] N[facility]ative* Problem Noted [...] of this encounter (statuses as of 05/03/2023) [facility] N[facility]* Problem Noted [...] of this encounter (statuses as of 05/07/2023) [facility]* Problem Noted [...] of this encounter (statuses as of 05/08/2023) [facility] N[facility]* Problem Noted [...] of this encounter (statuses as of 05/08/2023) [facility]* Problem Noted [...] of this encounter (statuses as of 05/10/2023) [facility] N[facility]* Problem Noted [...] of this encounter (statuses as of 05/27/2023) [facility]* Problem Noted [...] of this encounter (statuses as of 06/03/2023) [facility]* Problem Noted [...] of this encounter (statuses as of 06/11/2023) [facility] N[facility]* Problem Noted [...] of this encounter (statuses as of 06/17/2023) [facility] N[facility]* Problem Noted [...] of this encounter (statuses as of 06/25/2023) [facility] noteNo assessment information availableWWayne HealthCare Main Campus Work Phone: Evaluation note* Diagnosis Acquired hypothyroidism Unspecified hypothyroidism [facility]* Diagnosis Gastroesophageal reflux disease without esophagitis Esophageal reflux [facility]* 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 Memory changes Memory loss [facility]* Diagnosis Medication management Encounter for long-term (current) use of other medications [facility]* Diagnosis Dementia without behavioral disturbance, unspecified dementia type (HCC) Cognitive communication deficit [facility]* Diagnosis Projectile vomiting with nausea- Primary New onset of headaches Headache Essential hypertension Unspecified essential hypertension Mixed hyperlipidemia 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 [facility]* 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 [facility] Diagnosis Essential hypertension Unspecified essential hypertension [facility]* Diagnosis Projectile vomiting with nausea- Primary [facility]* Diagnosis Projectile vomiting with nausea [facility]* Diagnosis Mixed hyperlipidemia [facility]* Diagnosis Epidermal inclusion cyst Sebaceous cyst Dysesthesia Disturbance of skin sensation [facility]* Diagnosis Skin cyst- Primary Sebaceous cyst Dysesthesia Disturbance of skin sensation [facility]* Diagnosis Mixed hyperlipidemia [facility]* Diagnosis Mass of soft tissue of left upper extremity [facility]* Diagnosis Soft tissue mass- Primary Disorders of soft tissue, unspecified Tenderness Other general symptoms [facility]* Diagnosis Soft tissue mass Disorders of soft tissue, unspecified Tenderness Other general symptoms [facility] Diagnosis Soft tissue mass- Primary Disorders of soft tissue, unspecified [facility]* Diagnosis Mixed hyperlipidemia [facility]* Diagnosis PVC's (premature ventricular contractions)- Primary Other premature beats Essential hypertension Unspecified essential hypertension Mixed hyperlipidemia [facility]* Diagnosis COVID- Primary [facility]* Diagnosis Chronic pain of left knee- Primary Pain in joint, lower leg Chronic knee instability, left [facility]* Diagnosis Acquired hallux limitus of right foot- Primary Deformity of toe of right foot Pain of toe of right foot Pain in limb Onychomycosis Dermatophytosis of nail Pain in toe of left foot Pain in limb Pain in toe of right foot Pain in limb Callus Corns and callosities [facility]* Diagnosis Deformity of toe of right foot [facility]* Diagnosis Gastroesophageal reflux disease without esophagitis Esophageal reflux [facility]* Diagnosis Chronic pain of left knee- Primary Pain in joint, lower leg Chronic knee instability, left [facility] Diagnosis Chronic pain of left knee- Primary Pain in joint, lower leg Chronic knee instability, left [facility] Diagnosis Chronic pain of left knee- Primary Pain in joint, lower leg Chronic knee instability, left [facility] Diagnosis Chronic pain of left knee- Primary Pain in joint, lower leg Chronic knee instability, left [facility]* Diagnosis Chronic pain of left knee- Primary Pain in joint, lower leg Chronic knee instability, left [facility] Diagnosis Acquired hypothyroidism Unspecified hypothyroidism [facility] Diagnosis Acquired hypothyroidism Unspecified hypothyroidism [facility]* Diagnosis Alzheimer's disease (HCC)- Primary Alzheimer's disease Weight loss Loss of weight Acquired hypothyroidism Unspecified hypothyroidism Essential hypertension Unspecified essential hypertension Primary osteoarthritis involving multiple joints Vitamin B12 deficiency Other B-complex deficiencies Dementia with behavioral disturbance (HCC) Dementia, unspecified, with behavioral disturbance [facility]* Diagnosis B12 deficiency- Primary Other B-complex deficiencies Memory loss [place] (hard of hearing), unspecified laterality Balance problem Other symptoms involving nervous and musculoskeletal systems Gastroesophageal reflux disease without esophagitis Esophageal reflux Memory loss B12 deficiency Other B-complex deficiencies B12 deficiency- Primary Other B-complex deficiencies Dementia without behavioral disturbance, unspecified dementia type Memory loss Alzheimer's disease (HCC)- Primary Alzheimer's disease Anemia, unspecified type [facility]* Diagnosis B12 deficiency- Primary Other B-complex deficiencies Memory loss [place] (hard of hearing), unspecified laterality Balance problem Other symptoms involving nervous and musculoskeletal systems Gastroesophageal reflux disease without esophagitis Esophageal reflux Memory loss B12 deficiency Other B-complex deficiencies B12 deficiency- Primary Other B-complex deficiencies Dementia without behavioral disturbance, unspecified dementia type Memory loss Alzheimer's disease (HCC)- Primary Alzheimer's disease Anemia, unspecified type [facility] Diagnosis B12 deficiency- Primary Other B-complex deficiencies Memory loss [place] (hard of hearing), unspecified laterality Balance problem [...] (moderate) Mixed hyperlipidemia [facility] Diagnosis B12 deficiency- Primary Other B-complex deficiencies Memory loss [place] (hard of hearing), unspecified laterality Balance problem [...] onset (HCC)- Primary [facility]* Diagnosis B12 deficiency- Primary Other B-complex deficiencies Memory loss [place] (hard of hearing), unspecified laterality Balance problem [...] hypertension Mixed hyperlipidemia [facility] Diagnosis B12 deficiency- Primary Other B-complex deficiencies Memory loss [place] (hard of hearing), unspecified laterality Balance problem [...] within the family [facility] Diagnosis B12 deficiency- Primary Other B-complex deficiencies Memory loss [place] (hard of hearing), unspecified laterality Balance problem [...] hypothyroidism Unspecified hypothyroidism [facility] Diagnosis B12 deficiency- Primary Other B-complex deficiencies Memory loss [place] (hard of hearing), unspecified laterality Balance problem Other symptoms involving nervous and musculoskeletal systems Gastroesophageal reflux disease without esophagitis Esophageal reflux Memory loss B12 deficiency Other B-complex deficiencies B12 deficiency- Primary Other B-complex deficiencies Dementia without behavioral disturbance, unspecified dementia type Memory loss Alzheimer's disease (HCC) Alzheimer's disease [facility] Diagnosis B12 deficiency- Primary Other B-complex deficiencies Memory loss [place] (hard of hearing), unspecified laterality Balance problem [...] Other premature beats [facility] Diagnosis B12 deficiency- Primary Other B-complex deficiencies Memory loss [place] (hard of hearing), unspecified laterality Balance problem [...] hypothyroidism Unspecified hypothyroidism [facility]* Diagnosis B12 deficiency- Primary Other B-complex deficiencies Memory loss [place] (hard of hearing), unspecified laterality Balance problem [...] and behavioral disorders documented in this encounter [facility] note* Diagnosis B12 deficiency- Primary Other B-complex deficiencies Memory loss [place] (hard of hearing), unspecified laterality Balance problem Other symptoms involving nervous and musculoskeletal systems Gastroesophageal reflux disease without esophagitis Esophageal reflux Memory loss B12 deficiency Other B-complex deficiencies B12 deficiency- Primary Other B-complex deficiencies Dementia without behavioral disturbance, unspecified dementia type Memory loss Palliative care by specialist- Primary 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 They may need adjustment of your thyroid medications. That can be done as an outpatient.[facility] Work Phone: Reason for referral (narrative)* Diagnostic Procedure Only (Routine) - Authorized Specialty Diagnoses / Procedures Referred By Suzanne faulkner Referred To Contact US IMAGING Diagnoses Projectile vomiting with nausea Procedures US ABD RT UPPER QUADRANT US ABDOMINAL REAL TIME W/IMAGE LIMITED Faith William PA-C [address] [place] [address] Us Imaging Referral ID Status Reason Start Date Expiration Date Visits Requested Visits Authorized [id number] Authorized Auto-Generat ed Referral 11/16/2021 12/16/2022 1 1 [facility] for referral (narrative)* Diagnostic Procedure Only (Routine) - Closed Specialty Diagnoses / Procedures Referred By Darlineac t Referred To Contact US IMAGING Diagnoses Projectile vomiting with nausea Procedures US ABD RT UPPER QUADRANT US ABDOMINAL REAL TIME W/IMAGE LIMITED Faith William PA-C [address] [place] [address] Us Imaging Referral ID Status Reason Start Date Expiration Date V isits Requested Visits Authorized [id number] Closed Auto-Generate d Referral 11/16/2021 12/16/2022 1 1 [facility] for referral (narrative)* Outpatient Procedure (Routine) - Authorized Specialty Diagnoses / Procedures Referred By Contac t Referred To Contact [facility] Diagnoses Persistent atrial fibrillation (HCC) PVC's (premature ventricular contractions) Essential hypertension Mixed hyperlipidemia Procedures ECHO ECHO TTHRC R-T 2D W/WOM-MODE COMPL SPEC&COLR Rossy Ordonez DO [address] [place] [address] [facility] [address] [place] [address] Referral ID Status Reason Start Date Expiration Date Visits Requested Visits Authorized [id number] Authorized Auto-Generat ed Referral 4 03/09/2025 1 1 [facility] for visit Narrative* Diagnostic Procedure Only (Routine) - Closed Specialty Diagnoses / Procedures Referred By Contac t Referred To Contact US IMAGING Diagnoses Mass of soft tissue of left upper extremity Procedures US EXTREMITY MASS/FLUID COLLECTION LEFT Older, Meagan, RADIO RECORDER.COUPON REDEMPTION CLERK [address] [place] [address] Us Imaging Referral ID Status Reason Start Date Expiration Date V isits Requested Visits Authorized [id number] Closed Auto-Generate d Referral 10/17/2022 11/16/2023 1 [facility] Diagnostic Procedure Only (Routine) - Closed Specialty Diagnoses / Procedures Referred By Suzanne t Referred To Contact XR IMAGING Diagnoses Deformity of toe of right foot Procedures XR FOOT GENERAL 3V AP/LAT/OBL RIGHT RADEX FOOT COMPLETE MINIMUM 3 VIEWS [address] [place] [address] [place] [address] Referral ID Status Reason Start Date Expiration Date V isits Requested Visits Authorized [id number] Closed Auto-Generate d Referral 04/25/2023 05/24/2024 1 1 [facility] Chief Complaint and Reason for Visit Chief Complaint n/v Advance Directives No Advanced Directives Records Found Advance Directive Response Recorded Date/ Time Living Will Yes June 11, 2021 12:23pm Power of Surveillance System Monitor Yes June 11 12:23pm Documents on File Type Date Recorded Patient Train Controller Expl anation Advance Directive(s) 01/08/2017 12:42 PM Advance Directive(s) 03/11/2015 1:09 PM Documents on File Type Date Recorded Patient Train Controller Expl anation Advance Directive(s) 01/08/2017 12:42 PM Advance Directive(s) 03/11/2015 1:09 PM Documents on File Type Date Recorded Patient Train Controller Expl anation Advance Directive(s) 03/11/2015 1:09 PM Documents on File Type Date Recorded Patient Train Controller Expl anation Advance Directive(s) 03/11/2015 1:09 PM [...] HIGH MDM 60-74 MINUTES Vanessa Her MD [address] [place] [address] Referral ID Status Reason Start Date Expiration Date Visits Requested Visits Authorized [id number] Authorized PCP Requested Referral 10/05/2021 10/05/2022 1 1 Specialty Diagnoses / Procedures Referred By Suzanne t Referred To Contact MR IMAGING Diagnoses Multiple and bilateral precerebral artery syndromes Procedures MRI BRAIN WO/W IVCON MRI BRAIN BRAIN STEM W/O W/CONTRAST MATERIAL Vanessa Her MD [address] [place] [address] Mr Imaging Referral ID Status Reason Start Date Expiration Date Visits Requested Visits Authorized [id number] Authorized Auto-Generat ed Referral 10/05/2021 11/04/2022 1 1 Referral ID Status Reason Start Date Expiration Date V isits Requested Visits Authorized [id number] Closed Auto-Generate d Referral 10/05/2021 11/04/2022 1 1 Specialty Diagnoses / Procedures Referred By Contac t Referred To Contact General Surgery Diagnoses Soft tissue mass Tenderness Procedures CONSULT TO GENERAL SURGERY OFFICE/OUTPATIENT NEW HIGH MDM 60-74 MINUTES Meagan Lambert APRN.COUPON REDEMPTION CLERK [address] [place] [address] Referral ID Status Reason Start Date Expiration Date Visits Requested Visits Authorized [id number] Authorized PCP Requested Referral 11/05/2022 11/05/2023 1 1 Specialty Diagnoses / Procedures Referred By Contac t Referred To Contact Diagnoses Alzheimer's disease (HCC) Vanessa Her MD [address] [place] [address] Referral ID Status Reason Start Date Expiration Date Visits Re quested Visits Authorized [id number] Closed 1 1 Specialty Diagnoses / Procedures Referred By Contac t Referred To Contact Gerontology Diagnoses Alzheimer's disease (HCC) Procedures CONSULT TO GERIATRICS OFFICE/OUTPATIENT NEW [facility] MDM 60 MINUTES Petra, MICHOACANO Rhodes.COUPON REDEMPTION CLERK [address] [place] [address] Referral ID Status Reason Start Date Expiration Date V isits Requested Visits Authorized [id number] Closed PCP Requested Referral 10/24/2023 10/23/2024 1 [...] or prosecute any alcohol or drug abuse patient.[facility] the event this information is protected by the Federal Confidentiality of Alcohol and Drug Abuse Patient Records regulations: The Federal rules restrict any use of the information to criminally investigate or prosecute any alcohol or drug abuse patient.[facility] the event this information is protected by the Federal Confidentiality of Alcohol and Drug Abuse Patient Records regulations: The Federal rules restrict any use of the information to criminally investigate or prosecute any alcohol or drug abuse patient.[facility] the event this information is protected by the Federal Confidentiality of Alcohol and Drug Abuse Patient Records regulations: The Federal rules restrict any use of the information to criminally investigate or prosecute any alcohol or drug abuse patient.[facility]In the event this information is protected by the Federal Confidentiality of Alcohol and Drug Abuse Patient Records regulations: The Federal rules restrict any use of the information to criminally investigate or prosecute any alcohol or drug abuse patient.[facility] the event this information is protected by the Federal Confidentiality of Alcohol and Drug Abuse Patient Records regulations: The Federal rules restrict any use of the information to criminally investigate or prosecute any alcohol or drug abuse patient.[facility] the event this information is protected by the Federal Confidentiality of Alcohol and Drug Abuse Patient Records regulations: The Federal rules restrict any use of the information to criminally investigate or prosecute any alcohol or drug abuse patient.[facility] the event this information is protected by the Federal Confidentiality of Alcohol and Drug Abuse Patient Records regulations: The Federal rules restrict any use of the information to criminally investigate or prosecute any alcohol or drug abuse patient.[facility]In the event this information is protected by the Federal Confidentiality of Alcohol and Drug Abuse Patient Records regulations: The Federal rules restrict any use of the information to criminally investigate or prosecute any alcohol or drug abuse patient.[facility] the event this information is protected by the Federal Confidentiality of Alcohol and Drug Abuse Patient Records regulations: The Federal rules restrict any use of the information to criminally investigate or prosecute any alcohol or drug abuse patient.[facility]In the event this information is protected by the Federal Confidentiality of Alcohol and Drug Abuse Patient Records regulations: The Federal rules restrict any use of the information to criminally investigate or prosecute any alcohol or drug abuse patient.[facility]In the event this information is protected by the Federal Confidentiality of Alcohol and Drug Abuse Patient Records regulations: The Federal rules restrict any use of the information to criminally investigate or prosecute any alcohol or drug abuse patient.[facility] HospitalIn the event this information is protected by the Federal Confidentiality of Alcohol and Drug Abuse Patient Records regulations: The Federal rules restrict any use of the information to criminally investigate or prosecute any alcohol or drug abuse patient.[facility]In the event this information is protected by the Federal Confidentiality of Alcohol and Drug Abuse Patient Records regulations: The Federal rules restrict any use of the information to criminally investigate or prosecute any alcohol or drug abuse patient.[facility]In the event this information is protected by the Federal Confidentiality of Alcohol and Drug Abuse Patient Records regulations: The Federal rules restrict any use of the information to criminally investigate or prosecute any alcohol or drug abuse patient.[facility] HospitalIn the event this information is protected by the Federal Confidentiality of Alcohol and Drug Abuse Patient Records regulations: The Federal rules restrict any use of the information to criminally investigate or prosecute any alcohol or drug abuse patient.[facility]In the event this information is protected by the Federal Confidentiality of Alcohol and Drug Abuse Patient Records regulations: The Federal rules restrict any use of the information to criminally investigate or prosecute any alcohol or drug abuse patient.[facility]In the event this information is protected by the Federal Confidentiality of Alcohol and Drug Abuse Patient Records regulations: The Federal rules restrict any use of the information to criminally investigate or prosecute any alcohol or drug abuse patient.[facility] HospitalIn the event this information is protected by the Federal Confidentiality of Alcohol and Drug Abuse Patient Records regulations: The Federal rules restrict any use of the information to criminally investigate or prosecute any alcohol or drug abuse patient.[facility]In the event this information is protected by the Federal Confidentiality of Alcohol and Drug Abuse Patient Records regulations: The Federal rules restrict any use of the information to criminally investigate or prosecute any alcohol or drug abuse patient.[facility]In the event this information is protected by the Federal Confidentiality of Alcohol and Drug Abuse Patient Records regulations: The Federal rules restrict any use of the information to criminally investigate or prosecute any alcohol or drug abuse patient.[facility]In the event this information is protected by the Federal Confidentiality of Alcohol and Drug Abuse Patient Records regulations: The Federal rules restrict any use of the information to criminally investigate or prosecute any alcohol or drug abuse patient.[facility]In the event this information is protected by the Federal Confidentiality of Alcohol and Drug Abuse Patient Records regulations: The Federal rules restrict any use of the information to criminally investigate or prosecute any alcohol or drug abuse patient.[facility]In the event this information is protected by the Federal Confidentiality of Alcohol and Drug Abuse Patient Records regulations: The Federal rules restrict any use of the information to criminally investigate or prosecute any alcohol or drug abuse patient.[facility]In the event this information is protected by the Federal Confidentiality of Alcohol and Drug Abuse Patient Records regulations: The Federal rules restrict any use of the information to criminally investigate or prosecute any alcohol or drug abuse patient.[facility] HospitalIn the event this information is protected by the Federal Confidentiality of Alcohol and Drug Abuse Patient Records regulations: The Federal rules restrict any use of the information to criminally investigate or prosecute any alcohol or drug abuse patient.[facility] HospitalIn the event this information is protected by the Federal Confidentiality of Alcohol and Drug Abuse Patient Records regulations: The Federal rules restrict any use of the information to criminally investigate or prosecute any alcohol or drug abuse patient.[facility] HospitalIn the event this information is protected by the Federal Confidentiality of Alcohol and Drug Abuse Patient Records regulations: The Federal rules restrict any use of the information to criminally investigate or prosecute any alcohol or drug abuse patient.[facility] HospitalIn the event this information is protected by the Federal Confidentiality of Alcohol and Drug Abuse Patient Records regulations: The Federal rules restrict any use of the information to criminally investigate or prosecute any alcohol or drug abuse patient.[facility] HospitalIn the event this information is protected by the Federal Confidentiality of Alcohol and Drug Abuse Patient Records regulations: The Federal rules restrict any use of the information to criminally investigate or prosecute any alcohol or drug abuse patient.[facility] HospitalIn the event this information is protected by the Federal Confidentiality of Alcohol and Drug Abuse Patient Records regulations: The Federal rules restrict any use of the information to criminally investigate or prosecute any alcohol or drug abuse patient.[facility] HospitalIn the event this information is protected by the Federal Confidentiality of Alcohol and Drug Abuse Patient Records regulations: The Federal rules restrict any use of the information to criminally investigate or prosecute any alcohol or drug abuse patient.[facility] HospitalIn the event this information is protected by the Federal Confidentiality of Alcohol and Drug Abuse Patient Records regulations: The Federal rules restrict any use of the information to criminally investigate or prosecute any alcohol or drug abuse patient.[facility] HospitalIn the event this information is protected by the Federal Confidentiality of Alcohol and Drug Abuse Patient Records regulations: The Federal rules restrict any use of the information to criminally investigate or prosecute any alcohol or drug abuse patient.[facility] HospitalIn the event this information is protected by the Federal Confidentiality of Alcohol and Drug Abuse Patient Records regulations: The Federal rules restrict any use of the information to criminally investigate or prosecute any alcohol or drug abuse patient.[facility] HospitalIn the event this information is protected by the Federal Confidentiality of Alcohol and Drug Abuse Patient Records regulations: The Federal rules restrict any use of the information to criminally investigate or prosecute any alcohol or drug abuse patient.[facility] HospitalIn the event this information is protected by the Federal Confidentiality of Alcohol and Drug Abuse Patient Records regulations: The Federal rules restrict any use of the information to criminally investigate or prosecute any alcohol or drug abuse patient.[facility] HospitalIn the event this information is protected by the Federal Confidentiality of Alcohol and Drug Abuse Patient Records regulations: The Federal rules restrict any use of the information to criminally investigate or prosecute any alcohol or drug abuse patient.[facility] HospitalIn the event this information is protected by the Federal Confidentiality of Alcohol and Drug Abuse Patient Records regulations: The Federal rules restrict any use of the information to criminally investigate or prosecute any alcohol or drug abuse patient.[facility] HospitalIn the event this information is protected by the Federal Confidentiality of Alcohol and Drug Abuse Patient Records regulations: The Federal rules restrict any use of the information to criminally investigate or prosecute any alcohol or drug abuse patient.[facility] HospitalIn the event this information is protected by the Federal Confidentiality of Alcohol and Drug Abuse Patient Records regulations: The Federal rules restrict any use of the information to criminally investigate or prosecute any alcohol or drug abuse patient.[facility] HospitalIn the event this information is protected by the Federal Confidentiality of Alcohol and Drug Abuse Patient Records regulations: The Federal rules restrict any use of the information to criminally investigate or prosecute any alcohol or drug abuse patient.[facility] HospitalIn the event this information is protected by the Federal Confidentiality of Alcohol and Drug Abuse Patient Records regulations: The Federal rules restrict any use of the information to criminally investigate or prosecute any alcohol or drug abuse patient.[facility] HospitalIn the event this information is protected by the Federal Confidentiality of Alcohol and Drug Abuse Patient Records regulations: The Federal rules restrict any use of the information to criminally investigate or prosecute any alcohol or drug abuse patient.[facility] HospitalIn the event this information is protected by the Federal Confidentiality of Alcohol and Drug Abuse Patient Records regulations: The Federal rules restrict any use of the information to criminally investigate or prosecute any alcohol or drug abuse patient.[facility] HospitalIn the event this information is protected by the Federal Confidentiality of Alcohol and Drug Abuse Patient Records regulations: The Federal rules restrict any use of the information to criminally investigate or prosecute any alcohol or drug abuse patient.[facility] HospitalIn the event this information is protected by the Federal Confidentiality of Alcohol and Drug Abuse Patient Records regulations: The Federal rules restrict any use of the information to criminally investigate or prosecute any alcohol or drug abuse patient.[facility] HospitalIn the event this information is protected by the Federal Confidentiality of Alcohol and Drug Abuse Patient Records regulations: The Federal rules restrict any use of the information to criminally investigate or prosecute any alcohol or drug abuse patient.[facility] HospitalIn the event this information is protected by the Federal Confidentiality of Alcohol and Drug Abuse Patient Records regulations: The Federal rules restrict any use of the information to criminally investigate or prosecute any alcohol or drug abuse patient.[facility] HospitalIn the event this information is protected by the Federal Confidentiality of Alcohol and Drug Abuse Patient Records regulations: The Federal rules restrict any use of the information to criminally investigate or prosecute any alcohol or drug abuse patient.[facility] HospitalIn the event this information is protected by the Federal Confidentiality of Alcohol and Drug Abuse Patient Records regulations: The Federal rules restrict any use of the information to criminally investigate or prosecute any alcohol or drug abuse patient.[facility] HospitalIn the event this information is protected by the Federal Confidentiality of Alcohol and Drug Abuse Patient Records regulations: The Federal rules restrict any use of the information to criminally investigate or prosecute any alcohol or drug abuse patient.[facility] HospitalIn the event this information is protected by the Federal Confidentiality of Alcohol and Drug Abuse Patient Records regulations: The Federal rules restrict any use of the information to criminally investigate or prosecute any alcohol or drug abuse patient.[facility] HospitalIn the event this information is protected by the Federal Confidentiality of Alcohol and Drug Abuse Patient Records regulations: The Federal rules restrict any use of the information to criminally investigate or prosecute any alcohol or drug abuse patient.[facility] HospitalIn the event this information is protected by the Federal Confidentiality of Alcohol and Drug Abuse Patient Records regulations: The Federal rules restrict any use of the information to criminally investigate or prosecute any alcohol or drug abuse patient.[facility]In the event this information is protected by the Federal Confidentiality of Alcohol and Drug Abuse Patient Records regulations: The Federal rules restrict any use of the information to criminally investigate or prosecute any alcohol or drug abuse patient.[facility]In the event this information is protected by the Federal Confidentiality of Alcohol and Drug Abuse Patient Records regulations: The Federal rules restrict any use of the information to criminally investigate or prosecute any alcohol or drug abuse patient.[facility] HospitalIn the event this information is protected by the Federal Confidentiality of Alcohol and Drug Abuse Patient Records regulations: The Federal rules restrict any use of the information to criminally investigate or prosecute any alcohol or drug abuse patient.[facility]In the event this information is protected by the Federal Confidentiality of Alcohol and Drug Abuse Patient Records regulations: The Federal rules restrict any use of the information to criminally investigate or prosecute any alcohol or drug abuse patient.[facility] HospitalIn the event this information is protected by the Federal Confidentiality of Alcohol and Drug Abuse Patient Records regulations: The Federal rules restrict any use of the information to criminally investigate or prosecute any alcohol or drug abuse patient.[facility] HospitalIn the event this information is protected by the Federal Confidentiality of Alcohol and Drug Abuse Patient Records regulations: The Federal rules restrict any use of the information to criminally investigate or prosecute any alcohol or drug abuse patient.[facility] Reason for Visit (unrecogniz ed section and content) Reason Comments Physical Therapy Specialty Diagnoses / Procedures Referred By Suzanne t Referred To Contact [facility] Diagnoses Chronic pain of left knee Chronic knee instability, left Procedures CONSULT TO PHYSICAL THERAPY PHYSICAL THERAPY EVALUATION HIGH COMPLEX 45 MINS Older, MICHOACANO Rhodes.COUPON REDEMPTION CLERK [address] [place] [address] [facility] [address] [place] [address] Referral ID Status Reason Start Date Expiration Date Visits Requested Visits Authorized [id number] Authorized PCP Requested Referral Auto-Generate d Referral [...] W/O W/CONTRAST MATERIAL Vanessa Her MD [address] [place] [address] Mr Imaging Referral ID Status Reason Start Date Expiration Date V isits Requested Visits Authorized [id number] Closed Auto-Generate d Referral 10/05/2021 11/04/2022 1 1 Reason Onset Date Comments Refill Request 11/06/2021 Reason Comments Nausea & Vomiting Specialty Diagnoses / Procedures Referred By Contac t Referred To Contact Gastroenterology Diagnoses Projectile vomiting with nausea New onset of headaches Procedures CONSULT TO GASTROENTEROLOGY OFFICE/OUTPATIENT NEW HIGH MDM 60-74 MINUTES Vanessa Her MD [address] [place] [address] Referral ID Status Reason Start Date Expiration Date V isits Requested Visits Authorized [id number] Closed PCP Requested Referral 10/05/2021 10/05/2022 1 1 Reason Comments Radiology US Specialty Diagnoses / Procedures Referred By Contac t Referred To Contact US IMAGING Diagnoses Projectile vomiting with nausea Procedures US ABD RT UPPER QUADRANT US ABDOMINAL REAL TIME W/IMAGE LIMITED Faith William PA-C [address] [place] [address] [facility] Referral ID Status Reason Start Date Expiration Date V isits Requested Visits Authorized [id number] Closed Auto-Generate d Referral 11/16/2021 12/16/2022 1 1 Reason Onset Date Comments Refill Request 12/27/2021 Reason Onset Date Comments Refill Request 03/27/2022 Reason Comments Consult Cyst on back Specialty Diagnoses / Procedures Referred By Contac t Referred To Contact General Surgery Diagnoses Skin cyst Procedures CONSULT TO GENERAL SURGERY OFFICE/OUTPATIENT [facility] MDM 60-74 MINUTES Older, Meagan, RADIO RECORDER.COUPON REDEMPTION CLERK [address] [place] [address] Referral ID Status Reason Start Date Expiration Date V isits Requested Visits Authorized [id number] Closed PCP Requested Referral 07/09/2022 07/09/2023 1 [...] Tenderness Procedures CONSULT TO GENERAL SURGERY OFFICE/OUTPATIENT [facility] 60-74 MINUTES Older, Meagan, RADIO RECORDER.COUPON REDEMPTION CLERK [address] [place] [address] Referral ID Status Reason Start Date Expiration Date V isits Requested Visits Authorized [id number] Closed PCP Requested Referral 11/05/2022 11/05/2023 1 [...] foot Procedures CONSULT TO PODIATRY OFFICE/OUTPATIENT [facility] MDM 60 MINUTES Older, Meagan, RADIO RECORDER.COUPON REDEMPTION CLERK [address] [place] [address] Referral ID Status Reason Start Date Expiration Date V isits Requested Visits Authorized [id number] Closed PCP Requested Referral 04/22/2023 04/21/2024 1 1 Reason Onset Date Comments Refill Request 10/01/2023 Reason Comments Recheck 6 month follow up Reason Comments Consult Specialty Diagnoses / Procedures Referred By Contac t Referred To Contact Gerontology Diagnoses Alzheimer's disease (HCC) Procedures CONSULT TO GERIATRICS OFFICE/OUTPATIENT NEW [facility] MDM 60 MINUTES Older, MICHOACANO Rhodes.COUPON REDEMPTION CLERK [address] [place] [address] Referral ID Status Reason Start Date Expiration Date V isits Requested Visits Authorized [id number] Closed PCP Requested Referral 10/24/2023 10/23/2024 1 [...] Comments Population Health Navigation Outreach 09/14/2024 [facility] Reason Comments Medicare Wellness Exam Reason Comments Reason Comments Goals of Care Reason Comments Initial Consult [facility] [address] Reason Onset Date Comments Transition Of Care 11/27/2024 Chart review Care Teams (unrecognized sec tion and content) Sales Order Administrator Relationship Specialty Start Date End Date Vanessa Her MD [address] [place] [address] PCP - General Internal Medicine 07/30/16 Sales Order Administrator Relationship Specialty Start Date End Date Vanessa Her MD [address] [place] [address] PCP - General Internal Medicine 07/30/16 Sales Order Administrator Relationship Specialty Start Date End Date Vanessa Her MD [address] [place] [address] PCP - General Internal Medicine 07/30/16 Sales Order Administrator Relationship Specialty Start Date End Date Vanessa Her MD [address] [place] [address] PCP - General Internal Medicine 07/30/16 Sales Order Administrator Relationship Specialty Start Date End Date Vanessa Her MD [address] [place] [address] PCP - General Internal Medicine 07/30/16 Sales Order Administrator Relationship Specialty Start Date End Date Vanessa Her MD [address] [place] [address] PCP - General Internal Medicine 07/30/16 Sales Order Administrator Relationship Specialty Start Date End Date Vanessa Her MD [address] [place] [address] PCP - General Internal Medicine 07/30/16 Sales Order Administrator Relationship Specialty Start Date End Date Vanessa Her MD [address] [place] [address] PCP - General Internal Medicine 07/30/16 Sales Order Administrator Relationship Specialty Start Date End Date Vanessa Her MD [address] [place] [address] PCP - General Internal Medicine 07/30/16 Sales Order Administrator Relationship Specialty Start Date End Date Vanessa Her MD [address] [place] [address] PCP - General Internal Medicine 07/30/16 Sales Order Administrator Relationship Specialty Start Date End Date Vanessa Her MD [address] [place] [address] PCP - General Internal Medicine 07/30/16 Sales Order Administrator Relationship Specialty Start Date End Date Vanessa Her MD [address] [place] [address] PCP - General Internal Medicine 07/30/16 Sales Order Administrator Relationship Specialty Start Date End Date Vanessa Her MD [address] [place] [address] PCP - General Internal Medicine 07/30/16 Sales Order Administrator Relationship Specialty Start Date End Date Vanessa Her MD [address] [place] [address] PCP - General Internal Medicine 07/30/16 Sales Order Administrator Relationship Specialty Start Date End Date Vanessa Her MD [address] [place] [address] PCP - General Internal Medicine 07/30/16 Sales Order Administrator Relationship Specialty Start Date End Date Vanessa Her MD [address] [place] [address] PCP - General Internal Medicine 07/30/16 Sales Order Administrator Relationship Specialty Start Date End Date Vanessa Her MD [address] [place] [address] PCP - General Internal Medicine 07/30/16 Sales Order Administrator Relationship Specialty Start Date End Date Vanessa Her MD [address] [place] [address] PCP - General Internal Medicine 07/30/16 Sales Order Administrator Relationship Specialty Start Date End Date Vanessa Her MD [address] [place] [address] PCP - General Internal Medicine 07/30/16 Sales Order Administrator Relationship Specialty Start Date End Date Vanessa Her MD [address] [place] [address] PCP - General Internal Medicine 07/30/16 Sales Order Administrator Relationship Specialty Start Date End Date Vanessa Her MD [address] [place] [address] PCP - General Internal Medicine 07/30/16 Sales Order Administrator Relationship Specialty Start Date End Date Vanessa Her MD [address] [place] [address] PCP - General Internal Medicine 07/30/16 Sales Order Administrator Relationship Specialty Start Date End Date Vanessa Her MD [address] [place] [address] PCP - General Internal Medicine 07/30/16 Sales Order Administrator Relationship Specialty Start Date End Date Vanessa Her MD [address] [place] [address] PCP - General Internal Medicine 07/30/16 Sales Order Administrator Relationship Specialty Start Date End Date Vanessa Her MD [address] [place] [address] PCP - General Internal Medicine 07/30/16 Sales Order Administrator Relationship Specialty Start Date End Date Vanessa Her MD [address] [place] [address] PCP - General Internal Medicine 07/30/16 Sales Order Administrator Relationship Specialty Start Date End Date Vanessa Her MD [address] [place] [address] PCP - General Internal Medicine 07/30/16 Sales Order Administrator Relationship Specialty Start Date End Date Vanessa Her MD [address] [place] [address] PCP - General Internal Medicine 07/30/16 Sales Order Administrator Relationship Specialty Start Date End Date Vanessa Her MD [address] [place] [address] PCP - General Internal Medicine 07/30/16 Sales Order Administrator Relationship Specialty Start Date End Date Vanessa Her MD [address] [place] [address] PCP - General Internal Medicine 07/30/16 Sales Order Administrator Relationship Specialty Start Date End Date Vanessa Her MD [address] [place] [address] PCP - General Internal Medicine 07/30/16 Kinga Reyes PA-C [address] [place] [address] [facility] 03/01/24 Meagan Lambert APRN.COUPON REDEMPTION CLERK [address] [place] [address] [facility] 03/01/24 Gaby Cisse PA-C [address] [place] [address] [facility] 03/01/24 Sales Order Administrator Relationship Specialty Start Date End Date Vanessa Her MD [address] [place] [address] PCP - General Internal Medicine 07/30/16 Kinga Reyes PA-C [address] [place] [address] [facility] 03/01/24 Meagan Lambert APRN.COUPON REDEMPTION CLERK [address] [place] [address] [facility] 03/01/24 Gaby Cisse PA-C [address] [place] [address] [facility] 03/01/24 Sales Order Administrator Relationship Specialty Start Date End Date Vanessa Her MD [address] [place] [address] PCP - General Internal Medicine 07/30/16 Kinga Reyes PA-C [address] [place] [address] [facility] 03/01/24 Meagan Lambert APRN.COUPON REDEMPTION CLERK [address] [place] [address] [facility] 03/01/24 Gaby Cisse PA-C [address] [place] [address] [facility] 03/01/24 Sales Order Administrator Relationship Specialty Start Date End Date Vanessa Her MD [address] [place] [address] PCP - General Internal Medicine 07/30/16 Kinga Reyes PA-C [address] [place] [address] [facility] 03/01/24 Meagan Lambert, RADIO RECORDER.COUPON REDEMPTION CLERK [address] [place] [address] [facility] 03/01/24 Gaby Cisse PA-C [address] [place] [address] [facility] 03/01/24 Sales Order Administrator Relationship Specialty Start Date End Date Vanessa Her MD [address] [place] [address] PCP - General Internal Medicine 07/30/16 Kinga Reyes PA-C [address] [place] [address] [facility] 03/01/24 Meagan Lambert APRN.COUPON REDEMPTION CLERK [address] [place] [address] [facility] 03/01/24 Gaby Cisse PA-C [address] [place] [address] [facility] 03/01/24 Sales Order Administrator Relationship Specialty Start Date End Date Vanessa Her MD [address] [place] [address] PCP - General Internal Medicine 07/30/16 Kinga Reyes PA-C [address] [place] [address] [facility] 03/01/24 06/14/24 Meagan Lambert APRN.COUPON REDEMPTION CLERK [address] [place] [address] [facility] 03/01/24 Gaby Cisse PA-C [address] [place] [address] [facility] 03/01/24 06/14/24 Sales Order Administrator Relationship Specialty Start Date End Date Vanessa Her MD [address] [place] [address] PCP - General Internal Medicine 07/30/16 Kinga Reyes PA-C [address] [place] [address] [facility] 03/01/24 06/14/24 Meagan Lambert APRN.COUPON REDEMPTION CLERK [address] [place] [address] [facility] 03/01/24 Gaby Cisse PA-C [address] [place] [address] [facility] 03/01/24 06/14/24 Sales Order Administrator Relationship Specialty Start Date End Date Vanessa Her MD [address] [place] [address] PCP - General Internal Medicine 07/30/16 Meagan Lambert APRN.COUPON REDEMPTION CLERK [address] [place] [address] [facility] 03/01/24 Sales Order Administrator Relationship Specialty Start Date End Date Vanessa Her MD [address] [place] [address] PCP - General Internal Medicine 07/30/16 Meagan Lambert APRN.COUPON REDEMPTION CLERK [address] [place] [address] [facility] 03/01/24 Sales Order Administrator Relationship Specialty Start Date End Date Vanessa Her MD [address] [place] [address] PCP - General Internal Medicine 07/30/16 Meagan Lambert, RADIO RECORDER.COUPON REDEMPTION CLERK [address] [place] [address] [facility] 03/01/24 Sales Order Administrator Relationship Specialty Start Date End Date Vanessa Her MD [address] [place] [address] PCP - General Internal Medicine 07/30/16 Meagan Lambert, RADIO RECORDER.COUPON REDEMPTION CLERK [address] [place] [address] [facility] 03/01/24 Sales Order Administrator Relationship Specialty Start Date End Date Vanessa Her MD [address] [place] [address] PCP - General Internal Medicine 07/30/16 Meagan Lambert, RADIO RECORDER.COUPON REDEMPTION CLERK [address] [place] [address] [facility] 03/01/24 Sales Order Administrator Relationship Specialty Start Date End Date Vanessa Her MD [address] [place] [address] PCP - General Internal Medicine 07/30/16 Meagan Lambert, RADIO RECORDER.COUPON REDEMPTION CLERK [address] [place] [address] [facility] 03/01/24 Roly Wilks, RN [employer]ty [employer] [facility] 10/23/24 Sales Order Administrator Relationship Specialty Start Date End Date Vanessa Her MD [address] [place] [address] PCP - General Internal Medicine 07/30/16 Meagan Lambert APRN.COUPON REDEMPTION CLERK [address] [place] [address] [facility] 03/01/24 Roly Wilks RN [employer]ty [employer] [facility] 10/23/24 INFORMATION SOURCE (unrecogn ized section and content) DATE CREATED AUTHOR 07/12/2021 [facility] DATE CREATED AUTHOR AUTHOR'S ORGANIZ ATION 10/22/2022 [facility] DATE CREATED AUTHOR AUTHOR'S ORGANIZ ATION 03/13/2023 [facility] DATE CREATED AUTHOR AUTHOR'S ORGANIZ ATION 12/17/2023 [facility] DATE CREATED AUTHOR AUTHOR'S ORGANIZ ATION 01/03/2025 [facility] FOR RECORDS PERTAINING TO PATIENTS WHO [...] BE BASED ON THE PRIMARY CLINICAL RECORDS. [facility] [employer] [facility]. provides no warranty or guarantee of the accuracy or completeness of information in this document.
[2025-03-06 10:47] LABS: Magnesium 2.1 mg/dL (1.5-2.2)
--- OUTSIDE RECORDS SUMMARY | 2025-03-06 11:06 | XMS RPT_ITS | CCD ---
Author Organization [facility] CliniSynh Care Team Providers Care Eclectic Doctor Name Role Phone Gabe MORSE, Vanessa Primary Care Provider [phone] GANTA, VANESSA Primary Care Unavailable OLDER, MEAGAN Referring Unavailable Gabe MORSE, Vanessa Primary Care Provider GANTA, VANESSA Primary Care Unavailable ROSSY CROCKER Attending Unavailab le Gabe MORSE, [facility] Primary Care Provider Ganta, Vanessa Primary Care Unavailable Fabio Orozco Attending Unavailable Ganta, Vanessa Primary Care Unavailable Silver Durbin Attending Unavailable Denbow PA-C, Kinga L Unavailable [phone] Older ADMISSIONS CLINICIAN.FIRE SUPPRESSION CAPTAIN, Meagan Unavailable Bogner PA-C, Gaby Unavailable Denbow PA-C, Kinga L Unavailable Bogner [...] (1 source) Trimethoprim Drug Allergy 022 Swelling [facility] Estrogens, Conjugated (LONG-TERM) (1 source) Estrogens, Conjugated (LONG-TERM) Drug Allergy [facility] medroxyPROGESTERone (1 source) medroxyPROGESTERone Drug Allergy [facility] Nitrofurantoin (1 source) Nitrofurantoin Drug Allergy [facility] Work Phone: NITROFURANTOIN, MACROCRYSTALS / Nitrofurantoin, Monohydrate (1 source) NITROFURANTOIN, MACROCRYSTALS / Nitrofurantoin, Monohydrate Drug Allergy Diarrhea [facility] Sulfamethoxazole / Trimethoprim (1 source) Sulfamethoxazole / Trimethoprim Drug Allergy [facility] Work Phone: Sulfonamides (antibiotic) (1 source) Sulfamethoxazole Drug Allergy 022 Swelling [facility] (20 sources) Estrogens, Conjugated (LONG-TERM) Drug Allergy 005 Itching [facility] Work Phone: (20 sources) medroxyPROGESTERone; Translations: [MEDROXYPROGESTERONE] Drug Allergy 005 Unknown [facility] Work Phone: (20 sources) Nitrofurantoin; Translations: [NITROFURANTOIN] Drug Allergy 005 [facility] Work Phone: (20 sources) Sulfamethoxazole; Translations: [SULFAMETHOXAZOLE] Drug Allergy 022 Swelling [facility] (20 sources) Trimethoprim; Translations: [TRIMETHOPRIM] Drug Allergy [facility] (20 sources) NITROFURANTOIN, MACROCRYSTALS / Nitrofurantoin, Monohydrate; Translations: [NITROFURANTOIN MONOHYD/M-CRYST] Drug Allergy 005 Diarrhea [facility] Work Phone: (20 sources) Sulfamethoxazole / Trimethoprim; Translations: [SULFAMETHOXAZOLE-TRI METHOPRIM] Drug Allergy [facility] Work Phone: (3 sources) CONJUGATED ESTROGENS; Translations: [CONJUGATED ESTROGENS] Propensity to adverse reactions to drug (disorder) [facility] Other [place] Repository (1 source) Estrogens, Conjugated (LONG-TERM) Drug Allergy [facility] Repository (1 source) medroxyPROGESTERone Drug Allergy [facility] Repository (1 source) Nitrofurantoin Drug Allergy [facility] Repository (1 source) Sulfamethoxazole Drug Allergy [facility] Repository (1 source) Trimethoprim Drug Allergy [facility] Repository Medications Current Medications Medication Drug [...] hydrochloride 5 mg oral tablet (20 sources) T-uyxvir-Z-aspartate Receptor Antagonist Start: 04-22-2023 End: 05-26-2024 take [...] Active Start: 09-26-2021 take 1 tablet by veon th once daily donepezil (ARICEPT) 10 mg [...] sources) Anticholinergic Start: 04-08-2024 End: 06-10-2024 Ipratropium Diboll (ATROVENT) 21 mcg (0.03 %) nasal spray Use 2 Sprays in the nose every 12 hours. 30 mL 2 04/08/2024 06/10/2024 Discontinued (Discontinued by Patient) Start: 04-06-2021 End: 04-05-2024 Ipratropium Diboll (ATROVEN T) 21 mcg (0.03 %) nasal [...] 1 tablet by evon th once daily Cdqnymefpbwta-Evnxurlz-Obhlsd (CENTRUM SILVER) Tab Take 1 tablet by [...] Test Name Value Interpretation Reference Range Facility [facility] 10-27-2024 CNPN Telephone (MPPV) GERTRUDE FLORES ([id number]) 1940 F Date Time Provider Department 10/27/24 YRIS DICKSON [facility] During your visit today, we recorded the [...] in-home PCP. SHANON has left x3 with [facility] to inquire if [place] is in their territory/if they are accepting new Pts. SHANON spoke with Pt's spouse, Avila, on this date and provided update. 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. SHANON reached out to [place] CLAUDIO, Pranav Gorman, and Anila Prabhakar, Senior Farm Adviser for [employer] to inquire about alternative resources. With their assistance this SW [facility] to inquire about services. 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] 05/03/2023 Persistent atrial fibrillation (HCC) [I48.19] 03/09/2024 Encounter Status:Closed by YRIS DICKSON on 10/23/24 [facility] Remi 10-22-2024 [facility] Telephone ([facility]) GERTRUDE FLORES ([id number]) 1940 F Date Time Provider Department 10/22/24 SHELBIE CM [facility] During your visit today, we recorded the following information about you: Bear Hess PSS 10/22/2024 3:37 PM Signed [facility] REFERRAL Date Referral Received: 10/22/2024 Referral Source: CC Physician office Date of : 1940 Age: [age] year old PCP: Vanessa Her MD Visit address from [facility]: [facility] [facility] [address] Reason for referral: Ongoing Primary Care Name of Physician who gave the order: Dr. Shelbie Cm Primary Insurance Company: Payor: MEDICARE / Plan: MEDICARE A AND B / Product Type: Medicare / Primary Insurance ID Number: [id number] Bear Hess PSS 10/22/2024 3:37 PM Signed Medical Care at home referral was received for Primary Care services. Unfortunately the referral is declined at this time due to geographic location. Thank you for the referral. Patient discharged from Medical Care at Home: Discharge Reason: Other with Patient resides outside of the [facility] service area Discharge Date: 10/22/2024 Please cancel any pending orders-[facility], upcoming appointments with [facility] ROSALES Cerna Allergies As of Date: [...] Reason for Visit: Initial Consult [665] Cmt: [facility] [id number] Prescriptions as of 10/22/2024 - levothyroxine (TIROSINT-SANJAY) 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] 05/03/2023 Persistent atrial fibrillation (HCC) [I48.19] 03/09/2024 Encounter Status:Closed by [facility] CHUY WORKLEADERBEAR on 10/22/24 [facility] CNPGianna 10-21-2024 [facility] GER[facility]UDE FLORES ([id number]) 1940 F Date Time Provider Department 10/21/24 [facility] During your visit today, we recorded the following information about you: Efrain Patient Extrusion Press SupervisorJustin 10/21/2024 1:14 PM Signed Referring provider, if [...] in the pm block Justin Zuniga Patient Extrusion Press Supervisor Allergies As of Date: 10/21/2024 Noted Allergy Reaction BACTRIM DS (SULFAMETHOXAZOLE-TRI M*03/20/2005 Comments: blisters in mouth, edema FURADANTIN (NITROFURANTOIN) 03/20/2005 4 - Hives MACROBID (NITROFURANTOIN MONOHYD/*03/20/2005 6 - Diarrhea PREMARIN (CONJUGATED ESTROGENS) 03/20/2005 PROVERA (MEDROXYPROGESTERONE) 03/20/2005 SULFAMETHOXAZOLE 06/11/2021 7 - Swelling TRIMETHOPRIM 06/11/2021 7 - Swelling Date Reviewed: 10/16/2024 Reviewed by: Dariela Morrell MA - Fully Assessed Reason for Visit: [id number] Palliative Care [Other] Prescriptions as of 10/27/2024 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 10-20-2024 CNPN Telephone (MCOPRX) GERTRUDE FLORES ([id number]) 1940 F Date Time Provider Department 10/20/24 NEHAL PABLO OPRX During your visit today, we recorded the following information about you: Nehal Pablo [facility] 10/20/2024 1:02 PM Signed Hello, We called patient to set up shipping on monthly med box. 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 stated he made provider aware of situation and is planning on working with office to simplify medication regimen. We will f/u with patient in 1 month. Thanks, Nehal Pablo [facility] Vanessa Her MD 10/20/2024 6:53 [...] Fully Assessed Reason for Visit: Compliance Adherence [[id number]] Prescriptions as of 10/21/2024 - levothyroxine (TIROSINT-SANJAY) 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 This Sw also received consult for palliative care services. Sw will check with Home Care and see what their response is to setting up patient care services. 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 Normal [facility] CNOVon 08-21-2024 CNOV Office Visit (INTMWS ) GERTRUDE FLORES ([id number]) 1940 F Date Time Provider Department 08/21/24 [...] daily. This prescription has been sent to [facility] and includes a 90-day supply [...] mg tablet (more content not included)... Normal [facility] CNOVon 06-10-2024 CNOV Office Visit (CARDMM ) GERTRUDE FLORES ([id number]) 1940 F Date Time Provider Department 06/10/24 11:30 AM JUANA PRABHAKAR During your visit today, we recorded the following information about you: Pulse Blood pressure Weight Height 61/minute 132/74 83 kg 1.651 m Juana Prabhakar, ADMISSIONS CLINICIAN.FIRE SUPPRESSION CAPTAIN 06/22/2024 12:55 PM [facility] [place] Walter Rodriguez Department of Cardiovascular Medicine SECTION [...] prior to the follow up. Juana Prabhakar APRN.[facility] Cardiology Nurse Practitioner Section of Regional Cardiology [facility] Dept of Cardiovascular Medicine [facility] [place] [address] [place] [address] Office Office June 10, 2024 11:39 AM This note was partially generated using [employer] voice recognition system and may contain errors [...] Total ( (more content not included)... Normal [facility] CNPNon 05-26-2024 CNPN Telephone (RXADH) GERTRUDE FLORES ([id number]) 1940 F Date Time Provider Department 05/26/24 YAMILET ADAMSON RXADH During your visit today, we recorded the following information about you: Yamilet Adamson elizabeth 05/26/2024 4:01 PM Signed Pharmacy-Reviewed Medication History Patient Name:.Gertrude Flores : 1940 Patient Contact Attempt: First attempt Adherence Packing Program Accepted? Yes, patient wishes to participate. Yamilet Adamson RPh May 26, 2024 4:00 PM [facility] [phone] Allergies As of Date: 05/26/2024 Noted Allergy Reaction BACTRIM DS (SULFAMETHOXAZOLE-TRI M*03/20/2005 Comments: blisters in mouth, edema FURADANTIN (NITROFURANTOIN) 03/20/2005 4 - Hives MACROBID (NITROFURANTOIN MONOHYD/*03/20/2005 6 - Diarrhea PREMARIN (CONJUGATED ESTROGENS) 03/20/2005 PROVERA (MEDROXYPROGESTERONE) 03/20/2005 SULFAMETHOXAZOLE 06/11/2021 7 - Swelling TRIMETHOPRIM 06/11/2021 7 - Swelling Date Reviewed: 05/19/2024 Reviewed by: Dori Wheat LPN - Fully Assessed Reason for Visit: Compliance Adherence [[id number]] Prescriptions as of 12/31/2024 - levothyroxine (TIROSINT-SANJAY) [...] problem [R26.89] 03/22/2016 B12 deficiency [E53.8] 03/22/2016 [place] JOLLA (hard of hearing) [H91.90] 03/22/2016 Screening for colon cancer [Z12.11] 12/24/2016 PVC's (premature ventricular contractions) [I49*09/12/2018 Mixed hyperlipidemia [E78.2] 02/10/2019 Dementia without behavioral disturbance (HCC) [*02/10/2019 CKD (chronic kidney disease) stage 3, GFR 30-59*08/12/2019 Chronic pain of left knee [M25.562, G89.29] 05/03/2023 Chronic knee instability, 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] 05/03/2023 Persistent atrial fibrillation (HCC) [I48.19] 03/09/2024 Encounter Status:Closed by YAMILET ADAMSON on 12/31/24 Normal [facility] CBC W Auto Differential pane l (Bld)on 05-19-2024 Basophils (Bld) [#/Vol] 0.09 10*3/uL [facility] Basophils/100 WBC (Bld) 1 % C [facility] Differential cell count method Nom (Bld) Auto [facility] Eosinophils (Bld) [#/Vol] 0.28 10*3/uL [facility] Eosinophils/100 WBC (Bld) 3.2 % [facility] Erythrocyte distribution width (RBC) [Ratio] 14.2 % 11.5 - 15.0 % [facility] Hematocrit (Bld) [Volume fraction] 41.7 % 36.0 - 46.0 % [facility] Hemoglobin (Bld) [Mass/Vol] 13.3 g/dL 11.5 - 15.5 g/dL [facility] Immature granulocytes (Bld) [#/Vol] 0.03 10*3/uL [facility] Immature granulocytes/100 WBC (Bld) 0.3 % [facility] Lymphocytes (Bld) [#/Vol] 1.77 10*3/uL [facility] Lymphocytes/100 WBC (Bld) 20.5 % [facility] MCH (RBC) [Entitic mass] 28.7 pg 26. 0 - 34.0 pg [facility] MCHC (RBC) [Mass/Vol] 31.9 g/dL 30.5 - 36.0 g/dL [facility] MCV (RBC) [Entitic vol] 89.9 fL 80.0 - 100.0 fL [facility] Monocytes (Bld) [#/Vol] 0.71 10*3/uL [facility] Monocytes/100 WBC (Bld) 8.2 % [facility] Neutrophils (Bld) [#/Vol] 5.77 10*3/uL [facility] Neutrophils/100 WBC (Bld) 66.8 % [facility] Nucleated RBC (Bld) [#/Vol] [facility] Nucleated RBC/100 WBC (Bld) [Ratio] 0 % /100 WBC [facility] Platelet mean volume (Bld) [Entitic vol] 10.4 fL 9.0 - 12.7 fL [facility] Platelets (Bld) [#/Vol] 299 10*3/uL [facility] RBC (Bld) [#/Vol] 4.64 10*6/uL 3.90 - 5.2 0 m/uL [facility] WBC (Bld) [#/Vol] 8.65 10*3/uL [facility] Basophils (Bld) [#/Vol] 0.09 10*3/uL Normal <0.11 [facility] Comment on above: Order Comment: Speci men Type: BLOOD SPECIMENOrdering Facility: [facility] Address: [address] [place] [address] Performed By: #### 5 7021-8 ####[facility] MILLWNCLIA [id number] [place] [address] [place] Basophils/100 WBC (Bld) 1.0 % Normal [facility] Comment on above: Order Comment: Speci men Type: BLOOD SPECIMENOrdering Facility: [facility] Address: [address] [place] [address] Performed By: #### 5 7021-8 ####[facility] MILLWNCLIA [id number] [place] [address] [place] Differential cell count method Nom (Bld) Auto Normal [facility] Comment on above: Order Comment: Speci men Type: BLOOD SPECIMENOrdering Facility: [facility] Address: [address] [place] [address] Performed By: #### 5 7021-8 ####[facility] MILLTOWNCLIA [id number] [place] [address] [place] Eosinophils (Bld) [#/Vol] 0.28 10*3/uL Normal <0.46 [facility] Comment on above: Order Comment: Speci men Type: BLOOD SPECIMENOrdering Facility: [facility] Address: [address] [place] [address] Performed By: #### 5 7021-8 ####[facility] MILLTOWNCLIA [id number] [place] [address] [place] Eosinophils/100 WBC (Bld) 3.2 % Normal [facility] Comment on above: Order Comment: Speci men Type: BLOOD SPECIMENOrdering Facility: [facility] Address: [address] [place] [address] Performed By: #### 5 7021-8 ####[facility]OSPITALGARRYSALT [facility] [id number] [place] [address] [place] Erythrocyte distribution width (RBC) [Ratio] 14.2 % Normal 11.5-15.0 [facility] Comment on above: Order Comment: Speci men Type: BLOOD SPECIMENOrdering Facility: [facility] Address: [address] [place] [address] Performed By: #### 5 7021-8 ####[facility] HOSPITALGARRYCruz [id number] [place] [address] [place] Hematocrit (Bld) [Volume fraction] 41.7 % Normal 36.0-46.0 [facility] Comment on above: Order Comment: Speci men Type: BLOOD SPECIMENOrdering Facility: [facility] Address: [address] [place] [address] Performed By: #### 5 7021-8 ####[facility] [id number] [place] [address] [place] Hemoglobin (Bld) [Mass/Vol] 13.3 g/dL Normal 11.5-15.5 [facility] Comment on above: Order Comment: Speci men Type: BLOOD SPECIMENOrdering Facility: [facility] Address: [address] [place] [address] Performed By: #### 5 7021-8 ####[facility] [id number] [place] [address] [place] Immature granulocytes (Bld) [#/Vol] 0.03 10*3/uL Normal <0.10 [facility] Comment on above: Order Comment: Speci men Type: BLOOD SPECIMENOrdering Facility: [facility] Address: [address] [place] [address] Performed By: #### 5 7021-8 ####[facility] [id number] [place] [address] [place] Immature granulocytes/100 WBC (Bld) 0.3 % Normal [facility] Comment on above: Order Comment: Speci men Type: BLOOD SPECIMENOrdering Facility: [facility] Address: [address] [place] [address] Performed By: #### 5 7021-8 ####[facility] [id number] [place] [address] [place] Lymphocytes (Bld) [#/Vol] 1.77 10*3/uL Normal 1.00-4.00 [facility] Comment on above: Order Comment: Speci men Type: BLOOD SPECIMENOrdering Facility: [facility] Address: [address] [place] [address] Performed By: #### 5 7021-8 ####[facility] [id number] [place] [address] [place] Lymphocytes/100 WBC (Bld) 20.5 % Normal [facility] Comment on above: Order Comment: Speci men Type: BLOOD SPECIMENOrdering Facility: [facility] Address: [address] [place] [address] Performed By: #### 5 7021-8 ####[facility] [id number] [place] [address] [place] MCH (RBC) [Entitic mass] 28.7 pg Normal 26.0-34.0 [facility] Comment on above: Order Comment: Speci men Type: BLOOD SPECIMENOrdering Facility: [facility] Address: [address] [place] [address] Performed By: #### 5 7021-8 ####[facility] MILLWNCLIA [id number] [place] [address] [place] MCHC (RBC) [Mass/Vol] 31.9 g/dL Normal 30.5-36.0 [facility] Comment on above: Order Comment: Speci men Type: BLOOD SPECIMENOrdering Facility: [facility] Address: [address] [place] [address] Performed By: #### 5 7021-8 ####[facility] HOSPITALNCLIA [id number] [place] [address] [place] MCV (RBC) [Entitic vol] 89.9 fL Normal 80.0-100.0 [facility] Comment on above: Order Comment: Speci men Type: BLOOD SPECIMENOrdering Facility: [facility] Address: [address] [place] [address] Performed By: #### 5 7021-8 ####[facility]ITALNCLIA [id number] [place] [address] [place] Monocytes (Bld) [#/Vol] 0.71 10*3/uL Normal <0.87 [facility] Comment on above: Order Comment: Speci men Type: BLOOD SPECIMENOrdering Facility: [facility] Address: [address] [place] [address] Performed By: #### 5 7021-8 ####[facility]OS[facility]ITALNCLIA [id number] [place] [address] [place] Monocytes/100 WBC (Bld) 8.2 % Normal [facility] Comment on above: Order Comment: Speci men Type: BLOOD SPECIMENOrdering Facility: [facility] Address: [address] [place] [address] Performed By: #### 5 7021-8 ####[facility] HOSPITALNCLI [id number] [place] [address] [place] Neutrophils (Bld) [#/Vol] 5.77 10*3/uL Normal 1.45-7.50 [facility] Comment on above: Order Comment: Speci men Type: BLOOD SPECIMENOrdering Facility: [facility] Address: [address] [place] [address] Performed By: #### 5 7021-8 ####[facility] HOSPITALWNYLIA [id number] [place] [address] [place] Neutrophils/100 WBC (Bld) 66.8 % Normal [facility] Comment on above: Order Comment: Speci men Type: BLOOD SPECIMENOrdering Facility: [facility] Address: [address] [place] [address] Performed By: #### 5 7021-8 ####[facility] [id number] [place] [address] [place] Nucleated RBC (Bld) [#/Vol] 10*3/uL Normal <0.01 [facility] Comment on above: Order Comment: Speci men Type: BLOOD SPECIMENOrdering Facility: [facility] Address: [address] [place] [address] Performed By: #### 5 7021-8 ####[facility]ALTHL[facility] [id number] [place] [address] [place] Nucleated RBC/100 WBC (Bld) [Ratio] 0.0 /100 WBC Normal [facility] Comment on above: Order Comment: Speci men Type: BLOOD SPECIMENOrdering Facility: [facility] Address: [address] [place] [address] Performed By: #### 5 7021-8 ####[facility]ITALNCLIA [id number] [place] [address] [place] Platelet mean volume (Bld) [Entitic vol] 10.4 fL Normal 9.0-12.7 [facility] Comment on above: Order Comment: Speci men Type: BLOOD SPECIMENOrdering Facility: [facility] Address: [address] [place] [address] Performed By: #### 5 7021-8 ####[facility] CORNELIUSNCLIA [id number] [place] [address] [place] Platelets (Bld) [#/Vol] 299 10*3/uL Normal 150-400 [facility] Comment on above: Order Comment: Speci men Type: BLOOD SPECIMENOrdering Facility: [facility] Address: [address] [place] [address] Performed By: #### 5 7021-8 ####[facility]ITALNCLIA [id number] [place] [address] [place] RBC (Bld) [#/Vol] 4.64 10*6/uL Normal 3.90-5.20 [facility] Comment on above: Order Comment: Speci men Type: BLOOD SPECIMENOrdering Facility: [facility] Address: [address] [place] [address] Performed By: #### 5 7021-8 ####[facility]ITALNCLIA [id number] [place] [address] [place] WBC (Bld) [#/Vol] 8.65 10*3/uL Normal 3.70-11.00 [facility] Comment on above: Order Comment: Speci men Type: BLOOD SPECIMENOrdering Facility: [facility] Address: [address] [place] [address] Performed By: #### 5 7021-8 ####[facility]ITALNCLIA [id number] [place] [address] [place] CNOVon 05-19-2024 CNOV Office Visit (INTMWS ) GERTRUDE FLORES ([id number]) 1940 F Date Time Provider Department 05/19/24 [...] to nail issues, . 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 Normal [facility] T4 Free SerPl-mCncon 05-19- 025 Free T4 [Mass/Vol] 1.5 ng/dL Normal 0.9-1.7 [facility] Comment on above: Order Comment: Speci men Type: BLOOD SPECIMENOrdering Facility: [facility] Address: [address] [place] [address] Performed By: #### 3 016-3, 3024-7 ####[facility] Mobile SolutionsPOCAHONTAS MEMORIAL HOSPITALCLIA [id number] [address] [place] TSH SerPl-aCncon 05-19-2024 TSH Qn 2.920 m[IU]/L Normal 0.270-4.200 [facility] Comment on above: Order Comment: Speci men Type: BLOOD SPECIMENOrdering Facility: [facility] Address: [address] [place] [address] Performed By: #### 3 016-3, 3024-7 ####[facility] SolutionsMON[facility]OM[facility] LABORATORYCLIA [id number] [place] [address] [place] ECHOon 04-09-2024 Echocardiography Echocardiography Report: Transthoracic Echo [facility] Office Date of service: 04/09/2024 1:46:20 PM OPERATOR Ordering physician: ROSSY CROCKER Indication: AFIB Technologist: [...] * * Final * * * CC [facility] Image : [id number] amicsSISUID Normal [facility] CNOVon 03-09-2024 CNOV Office Visit (BUZZ ) FLORESGERTRUDE ([id number]) 1940 F Date Time Provider Department 03/09/24 11:20 AM ROSSY CROCKER During your visit today, we recorded the following information about you: Pulse Blood pressure Weight Height 83/minute 126/74 77.7 kg 1.651 m Rossy Crocker DO 03/09/2024 12:01 PM Signed [facility] SE[facility]AL CARDIOLOGY [facility] OUTPATIENT VISIT DATE March 09, 2024 PRIMARY CARE PHYSICIAN: Vanessa Her [address] [place] [address] HISTORY OF PRESENT ILLNESS: Ms. Flores is [...] 01/08/2017 COLONOSCO (more content not included)... Normal [facility] [id number] 03-09-2024 ECG01 Ventricular Rate : 8 3 BPM QRS Duration : 92 ms Q-T Interval : 372 ms QTC Calculation(Bazett) : 437 ms Calculated R Dennis : 31 degrees Calculated T Dennis : 22 degrees ATRIAL FIBRILLATION MINIMAL VOLTAGE CRITERIA FOR LVH, MAY BE NORMAL VARIANT ( Amado product ) ABNORMAL ECG Confirmed by MD CROCKER GREGORY () on 03/11/2024 10:23:45 AM NAME : GERTRUDE FLORES PID : [id number] : 1940 Gender : Female Race : ORD : Procedure Date : Mar 09 2024 11:02:00 Edit Date : Mar 11 2024 10:23:48 Diagnosis: ATRIAL FIBRILLATION MINIMAL VOLTAGE CRITERIA FOR LVH, MAY BE NORMAL VARIANT ( Glenwood product ) ABNORMAL ECG Confirmed by MD CROCKER GREGORY () on 03/11/2024 10:23:45 AM Test Reason : Location : 211 : ARIKARD Overread By : MD CROCKER GREGORY Edited By : MD CROCKER GREGORY Referred By : ROSSY CROCKER Acquired by : Lluvia EASTMAN [facility] CNOVon 02-17-2024 CNOV Office Visit (INTMWS ) GERTRUDE FLORES ([id number]) 1940 F Date Time Provider Department 02/17/24 2:00 PM VANESSA HER INTMWS During your visit today, we recorded the following information about you: Pulse Respiration Blood pressure Weight 62/minute 16/minute 149/81 81.6 kg Vanessa Her MD 02/17/2024 6:23 PM Signed [facility] Initial Consult Gertrude Flores is a 83 year old year old female who comes for Comprehensive Geriatric Assessment. Pt accompanied by: , Sarthak Flores Caregivers involved in care: HPI: Here for follow up of AD. Last visit we had given information on [facility], the has yet to call them, he will call them in the next few days to get more information. Currently not on any cognitive enhancers. B-ADLs: (I=independent,A=assi stance,D=dependent) ?Bathing: I, Dressing: A, Toileting: I, Transferring:I, Continence: I, Feeding: I, (Saini Index): 5 I-ADLs: Ability to use phone: D, Shopping: D, Cooking: D, Housekeeping: D, Laundry: D, Transportation:D, Medications: {D, Handle Finances: D. (Toam scale): 8 ALLERGIES Allergen Reactions Bactrim Ds [...] They have looked into a facility near [place] which is more like a memory unit [...] take 1 tablet every day - Ipratropium Diboll (ATROVENT) 21 mcg (0.03 %) nasal spray Use 2 Sprays in the nose every 12 carin (more content not included)... Normal [facility] Basic metabolic 2000 panelon 02-11-2024 Anion gap [Moles/Vol] 9 mmol/L Normal 8-15 [facility] Comment on above: Order Comment: Speci men Type: BLOOD SPECIMENOrdering Facility: [facility] Address: [address] [place] [address] Performed By: #### 2 4321-2 ####[facility] KENYA HOLLOWAYCUBABILL [id number] [place] [id number] [place] Calcium [Mass/Vol] 10.0 mg/dL Normal 8.5-10.2 [facility] Comment on above: Order Comment: Speci men Type: BLOOD SPECIMENOrdering Facility: [facility] Address: [address] [place] [address] Performed By: #### 2 4321-2 ####[facility] MILLTOWNCLIA [id number] [place] [address] [place] Chloride [Moles/Vol] 105 mmol/L Normal 98-107 [facility] Comment on above: Order Comment: Speci men Type: BLOOD SPECIMENOrdering Facility: [facility] Address: [address] [place] [address] Performed By: #### 2 4321-2 ####[facility] HEALTHLIA [id number] [place] [address] [place] CO2 [Moles/Vol] 27 mmol/L Normal 22-30 [facility] Comment on above: Order Comment: Speci men Type: BLOOD SPECIMENOrdering Facility: [facility] Address: [address] [place] [address] Performed By: #### 2 4321-2 ####[facility] HEALTHLIA [id number] [place] [address] [place] Creatinine [Mass/Vol] 1.02 mg/dL High 0.58-0.96 [facility] Comment on above: Order Comment: Speci men Type: BLOOD SPECIMENOrdering Facility: [facility] Address: [address] [place] [address] Performed By: #### 2 4321-2 ####[facility] HEALTHLIA [id number] [place] [address] [place] Creatinine and Glomerular filtration rate.predicted panel (S/P/Bld) 55 mL/min/1.73m??? Low >=60 [facility] Comment on above: Order Comment: Speci men Type: BLOOD SPECIMENOrdering Facility: [facility] Address: [address] [place] [id number] Result Comment: Jazzy mated Glomerular Filtration Rate [...] actual GFR. Performed By: #### 2 4321-2 ####[facility] [id number] [place] [address] [place] Glucose [Mass/Vol] 94 mg/dL Normal 74-99 [facility] Comment on above: Order Comment: Griffin verdugo Type: BLOOD SPECIMENOrdering Facility: [facility] Address: [address] [place] [address] Result Comment: The [place] Diabetes Association (ADA) provides guidance for cutoff [...] Standards of Medical Care in Diabetes 2016, [place] Diabetes Association. Diabetes Care. 2016.39(Suppl 1). Performed By: #### 2 4321-2 ####[facility] [id number] [place] [address] [place] Potassium [Moles/Vol] 4.2 mmol/L Normal 3.7-5.1 [facility] Comment on above: Order Comment: Griffin verdugo Type: BLOOD SPECIMENOrdering Facility: [facility] Address: [address] [place] [id number] Performed By: #### 2 4321-2 ####[facility] [id number] [place] [address] [place] Sodium [Moles/Vol] 141 mmol/L Normal 136-144 [facility] Comment on above: Order Comment: Speci men Type: BLOOD SPECIMENOrdering Facility: [facility] Address: [address] [place] [address] Performed By: #### 2 4321-2 ####[facility] [id number] [place] [address] [place] Urea nitrogen [Mass/Vol] 17 mg/dL Normal 7-21 [facility] Comment on above: Order Comment: Speci men Type: BLOOD SPECIMENOrdering Facility: [facility] Address: [address] [place] [address] Performed By: #### 2 4321-2 ####[facility] [id number] [place] [address] [place] Lipid 1996 panelon 4 Cholesterol [Mass/Vol] 149 mg/dL Normal <200 [facility] Comment on above: Order Comment: Speci men Type: BLOOD SPECIMENOrdering Facility: [facility] Address: [address] [place] [address] Result Comment: <200 mg/dL, Desirable 200-239 mg/dL, Borderline high >239 mg/dL, High Performed By: #### 2 4331-1 ####[facility] LABCLIA [id number] [place] [id number] [place] [facility] [id number] [place] [address] [place] Cholesterol in HDL [Mass/Vol] 48 mg/dL Normal >39 [facility] Comment on above: Order Comment: Speci men Type: BLOOD SPECIMENOrdering Facility: [facility] Address: [address] [place] [address] Result Comment: 40-5 9 mg/dL, Acceptable >59 mg/dL, High: Negative risk factor for coronary heart disease <40 mg/dL, Low: Positive risk factor for coronary heart disease Performed By: #### 2 4331-1 ####[facility] LABCLIA [id number] [id number] [place] [address] [place] Cholesterol in LDL [Mass/Vol] 87 mg/dL Normal <100 [facility] Comment on above: Order Comment: Ajithi men Type: BLOOD SPECIMENOrdering Facility: [facility] Address: [address] [place] [address] Result Comment: <100 mg/dL, Optimal 100-129 mg/dL, Near optimal/above optimal 130-159 mg/dL, Borderline high 160-189 mg/dL, High >189 mg/dL, Very high Secondary prevention optimal LDL Cholesterol levels are recommended to be < 70 mg/dL Performed By: #### 2 4331-1 ####[facility] LABCLIA [id number] [id number] [place] [address] [place] Cholesterol in LDL/Cholesterol in HDL [Mass ratio] 1.81 {ratio} Normal <2.54 [facility] Comment on above: Order Comment: Ajithi men Type: BLOOD SPECIMENOrdering Facility: [facility] Address: [address] [place] [address] Result Comment: Skye pepper: 1. National Cholesterol Education Program ATP III Guideline At-A-Glance Quick Desk Reference: National Heart, Lung, and Blood [place]. National Institutes of Health. 2001: NIH Publication No. 01-3305. 2. An International Atherosclerosis Society position paper: global recommendations for the management of dyslipidemia: executive summary, Atherosclerosis. 2014: 232(2):410-413. Performed By: #### 2 4331-1 ####[facility] LABCLIA [id number] [address] [id number] [place] [address] [place] Cholesterol in VLDL [Mass/Vol] 14 mg/dL Normal <30 [facility] Comment on above: Order Comment: Speci men Type: BLOOD SPECIMENOrdering Facility: [facility] Address: [address] [place] [address] Performed By: #### 2 4331-1 ####[facility] LABCLIA [id number] [address] [id number] [place] [address] [place] Cholesterol non HDL [Mass/Vol] 101 mg/dL Normal <130 [facility] Comment on above: Order Comment: Speci men Type: BLOOD SPECIMENOrdering Facility: [facility] Address: [address] [place] [address] Result Comment: <130 mg/dL, Optimal 130-159 mg/dL, Near optimal/above optimal 160-189 mg/dL, Borderline high 190-219 mg/dL, High >219 mg/dL, Very high Secondary prevention optimal non HDL Cholesterol levels are recommended to be <100 mg/dL Performed By: #### 2 4331-1 ####[facility] LABCLIA [id number] [address] [id number] [place] [address] [place] Cholesterol.total/Choles terol in HDL [Mass ratio] 3.10 {ratio} Normal <5.10 [facility] Comment on above: Order Comment: Speci men Type: BLOOD SPECIMENOrdering Facility: [facility] Address: [address] [place] [address] Performed By: #### 2 4331-1 ####[facility] LABCLIA [id number] [address] [id number] [place] [address] [place] FASTING TIME 12 hrs Normal [facility] Comment on above: Order Comment: Speci men Type: BLOOD SPECIMENOrdering Facility: [facility] Address: [address] [place] [address] Performed By: #### 2 4331-1 ####[facility] LABCLIA [id number] [address] [id number] [place] [address] [place] Triglyceride [Mass/Vol] 72 mg/dL Normal <150 [facility] Comment on above: Order Comment: Speci men Type: BLOOD SPECIMENOrdering Facility: [facility] Address: [address] [place] [address] Result Comment: <150 mg/dL, Normal 150-199 mg/dL, Borderline high 200-499 mg/dL, High >499 mg/dL, Very high Performed By: #### 2 4331-1 ####[facility] LABCLIA [id number] [address] [id number] [place] [address] [place] Urine Cultureon 11-24-2023 [facility] Streptococcus agalactiae (B) [place] Count 25,000-50,000 Streptococcus agalactiae (B): REACTION Ampicillin Islt <=0.25 S Penicillin G Islt <=0.06 S cefTRIAXone Islt <=0.12 S Clindamycin Islt <=0.25 S Clindamycin.induced Susc Islt NEG Linezolid Islt <=2 S Vancomycin Islt 0.5 S Normal [facility] Comment on above: Performed By: #### M 100.2200 #### [facility] [address] [place], [address] Abdomen/Pelvis without Conto n 11-22-2023 Abdomen/Pelvis without Cont [facility] [address] [place] [address] Abdomen/Pelvis without Cont MR#: [id number] Acct: [id number] Name: GERTRUDE FLORES Rep #: [id number] : 1940 F 83 From: Arian Fairchild PCP: Dr. Vanessa Her MD Status: REG ER Study: Abdomen/Pelvis without Cont Date of Exam: 10/25 Exam# [id number] Ordering Dr: Silver Durbin DO [id number] STUDY: CT ABDOMEN AND PELVIS WITHOUT CONTRAST [...] Vanessa Her MD; Dr. Silver Durbin DO Delivery Aide: Signed Normal [facility] Basic Metabolic Profile (BMP )on 11-22-2023 BUN/CRE 13.6 RATIO Normal 10-20 [facility] Comment on above: Performed By: #### L 500.4050, L501.4020, L100.0100, L501.2450 #### [facility] [address] [place], [address] CA,Total 9.4 mg/dL Normal 8.5-10.1 [facility] Comment on above: Performed By: #### L 500.4050, L501.4020, L100.0100, L501.2450 #### [facility] [address] [place], [address] Chloride [Moles/Vol] 109 mmol/L High 98-107 [facility] Comment on above: Performed By: #### L 500.4050, L501.4020, L100.0100, L501.2450 #### [facility] [address] [place], [address] CO2 [Moles/Vol] 28.0 mmol/L Normal 21.0-32.0 [facility] Comment on above: Performed By: #### L 500.4050, L501.4020, L100.0100, L501.2450 #### [facility] [address] [place], [address] Creatinine [Mass/Vol] 1.10 mg/dL High 0.55-1.02 [facility] Comment on above: Result Comment: The validity of the calculated GFR GFRAA in patients over 70 years has not been determined. Clinical correlation is essential. Performed By: #### L 500.4050, L501.4020, L100.0100, L501.2450 #### [facility] [address] [place], [address] ECRCL 42.75 ml/min Normal [facility] Comment on above: Performed By: #### L 500.4050, L501.4020, L100.0100, L501.2450 #### [facility] [address] [place], [address] EST GFR - AA 61 mL/min Normal >60 [facility] Comment on above: Result Comment: Afri can [place] GFR Calc Performed By: #### L 500.4050, L501.4020, L100.0100, L501.2450 #### [facility] [address] [place], [address] GAP 4 Low 5-15 [facility] Comment on above: Performed By: #### L 500.4050, L501.4020, L100.0100, L501.2450 #### [facility] [address] [place], [address] GFR/1.73 sq M.predicted among non-blacks MDRD (S/P/Bld) [Vol rate/Area] 51 mL/min/{1.73_m2} Low >60 [facility] Comment on above: Result Comment: Non- GFR Calc Performed By: #### L 500.4050, L501.4020, L100.0100, L501.2450 #### [facility] [address] [place], [address] Glucose [Mass/Vol] 117 mg/dL High 74-106 [facility] Comment on above: Result Comment: Fast ing Glucose result from 100 to 125 mg/dL suggests IMPAIRED HOMEOSTASIS per A.D.A. criteria. Performed By: #### L 500.4050, L501.4020, L100.0100, L501.2450 #### [facility] [address] [place], [address] Potassium [Moles/Vol] 3.8 mmol/L Normal 3.5-5.1 [facility] Comment on above: Performed By: #### L 500.4050, L501.4020, L100.0100, L501.2450 #### [facility] [address] [place], [address] Sodium [Moles/Vol] 141 mmol/L Normal 136-145 [facility] Comment on above: Performed By: #### L 500.4050, L501.4020, L100.0100, L501.2450 #### [facility] [address] [place], [address] Urea nitrogen [Mass/Vol] 15 mg/dL Normal 7-18 [facility] Comment on above: Performed By: #### L 500.4050, L501.4020, L100.0100, L501.2450 #### [facility] [address] [place], [address] CBC W/Diff, Automatedon 083 -2023 Absolute Lymph 1.20 X10 3/uL Normal 0.83-4.51 [facility] Comment on above: Performed By: #### L 500.4050, L501.4020, L100.0100, L501.2450 #### [facility] [address] [place], [address] Absolute Neut 9.5 X10 3/uL High 2.0-7.7 [facility] Comment on above: Performed By: #### L 500.4050, L501.4020, L100.0100, L501.2450 #### [facility] [address] [place], [address] Basophils/100 WBC (Bld) 0.6 % Normal 0-1 [facility] Comment on above: Performed By: #### L 500.4050, L501.4020, L100.0100, L501.2450 #### [facility] [address] [place], [address] Eosinophils/100 WBC (Bld) 2.4 % Normal 0-5 [facility] Comment on above: Performed By: #### L 500.4050, L501.4020, L100.0100, L501.2450 #### [facility] [address] [place], [address] Erythrocyte distribution width (RBC) [Ratio] 15.2 % High 11.6-14.6 [facility] Comment on above: Performed By: #### L 500.4050, L501.4020, L100.0100, L501.2450 #### [facility] [address] [place], [address] Hematocrit (Bld) [Volume fraction] 34.6 % Low 37-47 [facility] Comment on above: Performed By: #### L 500.4050, L501.4020, L100.0100, L501.2450 #### [facility] [address] [place], [address] Hemoglobin (Bld) [Mass/Vol] 10.6 g/dL Low 12.0-15.0 [facility] Comment on above: Performed By: #### L 500.4050, L501.4020, L100.0100, L501.2450 #### [facility] [address] [place], [address] IG% 0.600 Normal 0.0-0.9 [facility] Comment on above: Result Comment: IG% - Immature Granulocytes (promyelocytes, myelocytes and metamyelocytes) > 1% indicates that a LEFT SHIFT is Present. Performed By: #### L 500.4050, L501.4020, L100.0100, L501.2450 #### [facility] [address] [place], [address] Lymphocytes/100 WBC (Bld) 9.7 % Low 19-41 [facility] Comment on above: Performed By: #### L 500.4050, L501.4020, L100.0100, L501.2450 #### [facility] [address] [place], [address] MCH (RBC) [Entitic mass] 27.2 pg Normal 27.0-32.0 [facility] Comment on above: Performed By: #### L 500.4050, L501.4020, L100.0100, L501.2450 #### [facility] [address] [place], [address] MCHC (RBC) [Mass/Vol] 30.6 g/dL Low 32-36 [facility] Comment on above: Performed By: #### L 500.4050, L501.4020, L100.0100, L501.2450 #### [facility] [address] [place], [address] MCV (RBC) [Entitic vol] 88.7 fL Normal 81-99 [facility] Comment on above: Performed By: #### L 500.4050, L501.4020, L100.0100, L501.2450 #### [facility] [address] [place], [address] Monocytes/100 WBC (Bld) 10.3 % High 0-10 [facility] Comment on above: Performed By: #### L 500.4050, L501.4020, L100.0100, L501.2450 #### [facility] [address] [place], [address] Neutrophils/100 WBC (Bld) 76.4 % High 47-70 [facility] Comment on above: Performed By: #### L 500.4050, L501.4020, L100.0100, L501.2450 #### [facility] [address] [place], [address] Nucleated RBC (Bld) [#/Vol] 0 10*3/uL Normal 0-5 [facility] Comment on above: Performed By: #### L 500.4050, L501.4020, L100.0100, L501.2450 #### [facility] [address] [place], [address] Platelet mean volume (Bld) [Entitic vol] 10.0 fL Normal 6.2-12.0 [facility] Comment on above: Performed By: #### L 500.4050, L501.4020, L100.0100, L501.2450 #### [facility] [address] [place], [address] Platelets (Bld) [#/Vol] 389 10*3/uL Normal 150-450 [facility] Comment on above: Performed By: #### L 500.4050, L501.4020, L100.0100, L501.2450 #### [facility] [address] [place], [address] RBC (Bld) [#/Vol] 3.90 10*6/uL Low 4.2-5.4 [facility] Comment on above: Performed By: #### L 500.4050, L501.4020, L100.0100, L501.2450 #### [facility] [address] [place], [address] RDW SD 48.7 fl High 35.1-43.9 [facility] Comment on above: Performed By: #### L 500.4050, L501.4020, L100.0100, L501.2450 #### [facility] [address] [place], [address] WBC (Bld) [#/Vol] 12.4 10*3/uL High 4.4-11.0 [facility] Comment on above: Performed By: #### L 500.4050, L501.4020, L100.0100, L501.2450 #### [facility] [address] [place], [address] Chest PA and Lateralon 11-21 Chest PA and Lateral [facility] [address] [place] [address] Chest PA and Lateral MR#: [id number] Acct: [id number] Name: GERTRUDE FLORES Rep #: [id number] : 1940 F 83 From: Arian Fairchild PCP: Dr. Vanessa Her MD Status: [facility] ER Study: Chest PA and Lateral Date of Exam: 11/22/23 Exam# [id number] Ordering Dr: Silver Durbin DO [id number] STUDY: X-RAY CHEST REASON FOR EXAM: Female, [...] Vanessa Her MD; Dr. Silver Durbin DO Delivery Aide: Signed Normal [facility] Emergency Department Summary on 11-22-2023 Emergency Department Summary [facility] Medical Records Department [address] [place] [address] Emergency Department Summary 11/22/23 MR#: [id number] Acct: [id number] Name: GERTRUDE FLORES Rep #: [id number] : 1940 83 From: Silver Ashley PCP: [...] wounds MDM (more content not included)... Normal [facility] Urinalysis, Completeon 11-21 AMORPHOUS 1+ Normal [facility] Comment on above: Order Comment: 'TROP ' Serial specimen #1, #2 or #3: 1 Performed By: #### L 500.4050, L501.4020, L100.0100, L501.2450 #### [facility] [address] [place], [address] BACTERIA 1+ /hpf Normal None Seen [facility] Comment on above: Order Comment: 'TROP ' Serial specimen #1, #2 or #3: 1 Performed By: #### L 500.4050, L501.4020, L100.0100, L501.2450 #### [facility] [address] [place], [address] EPI,RENAL 0-5 SEEN Normal 0-5 [facility] Comment on above: Order Comment: 'TROP ' Serial specimen #1, #2 or #3: 1 Performed By: #### L 500.4050, L501.4020, L100.0100, L501.2450 #### [facility] [address] [place], [address] Mucus Ql (Urine sed) 1+ /hpf Normal [facility] Comment on above: Order Comment: 'TROP ' Serial specimen #1, #2 or #3: 1 Performed By: #### L 500.4050, L501.4020, L100.0100, L501.2450 #### [facility] [address] [place], [address] RBC 10-25 SEEN Normal 0-5 [facility] Comment on above: Order Comment: 'TROP ' Serial specimen #1, #2 or #3: 1 Performed By: #### L 500.4050, L501.4020, L100.0100, L501.2450 #### [facility] [address] [place], [address] WBC 50-100 SEEN Normal 0-5 [facility] Comment on above: Order Comment: 'TROP ' Serial specimen #1, #2 or #3: 1 Performed By: #### L 500.4050, L501.4020, L100.0100, L501.2450 #### [facility] [address] [place], [address] EPI,SQUAMOUS 25-50 SEEN Normal 5-10 [facility] Comment on above: Order Comment: 'TROP ' Serial specimen #1, #2 or #3: 1 Performed By: #### L 500.4050, L501.4020, L100.0100, L501.2450 #### [facility] [address] [place], [address] FERRITINon 11-11-2023 Ferritin [Mass/Vol] 184.0 ng/mL 14.7 - 2 05.1 ng/mL [facility] Ferritin [Mass/Vol]on 2023 Interpretation and review of laboratory results Normal [facility] HAPTOGLOBINon 11-11-2023 Haptoglobin [Mass/Vol] 319 mg/dL High 31 - 238 mg/dL [facility] Iron and Iron binding capaci ty panelon 11-11-2023 Iron [Mass/Vol] 29 ug/dL Low 41 - 186 ug/dL [facility] Iron binding capacity [Mass/Vol] 300 ug/dL 232 - 386 ug/dL [facility] Iron/TIBC [Molar ratio] 9.7 % Low 15.0 - 57.0 % [facility] LACTATE DEHYDROGENASEOrdered By: Donna Herrera on 11-11-2023 LDH [Catalytic activity/Vol] 202 U/L 135 - 214 U/L [facility] LDH [Catalytic activity/Vol] Ordered By: Donna Herrera on 11-11-2023 Interpretation and review of laboratory results Normal [facility] No Panel Informationon 11-10 Interpretation and review of laboratory results Abnormal [facility] RETICULOCYTE COUNTon 024 Reticulocytes (Bld) [#/Vol] 0.085 10*3/uL [facility] Reticulocytes (Bld) [#/Vol]o n 11-11-2023 Interpretation and review of laboratory results Abnormal [facility] Reticulocytes/100 RBC (Bld) 2.3 % High 0.4 - 2.0 % [facility] CBC W Auto Differential pane l (Bld)on 10-24-2023 Basophils (Bld) [#/Vol] 0.07 10*3/uL [facility] Basophils/100 WBC (Bld) 0.6 % [facility] Differential cell count method Nom (Bld) Auto [facility] Eosinophils (Bld) [#/Vol] 0.19 10*3/uL [facility] Eosinophils/100 WBC (Bld) 1.7 % [facility] Erythrocyte distribution width (RBC) [Ratio] 13.7 % 11.5 - 15.0 % [facility] Hematocrit (Bld) [Volume fraction] 34.3 % Low 36.0 - 46.0 % [facility] Hemoglobin (Bld) [Mass/Vol] 10.9 g/dL Low 11.5 - 15.5 g/dL [facility] Immature granulocytes (Bld) [#/Vol] 0.07 10*3/uL [facility] Immature granulocytes/100 WBC (Bld) 0.6 % [facility] Interpretation and review of laboratory results Abnormal [facility] Lymphocytes (Bld) [#/Vol] 0.88 10*3/uL Low [facility] Lymphocytes/100 WBC (Bld) 7.7 % [facility] MCH (RBC) [Entitic mass] 29.3 pg 26. 0 - 34.0 pg [facility] MCHC (RBC) [Mass/Vol] 31.8 g/dL 30.5 - 36.0 g/dL [facility] MCV (RBC) [Entitic vol] 92.2 fL 80.0 - 100.0 fL [facility] Monocytes (Bld) [#/Vol] 0.84 10*3/uL [facility] Monocytes/100 WBC (Bld) 7.4 % [facility] Neutrophils (Bld) [#/Vol] 9.35 10*3/uL High [facility] Neutrophils/100 WBC (Bld) 82.0 % [facility] Nucleated RBC (Bld) [#/Vol] [facility] Nucleated RBC/100 WBC (Bld) [Ratio] 0.0 % /100 WBC [facility] Platelet mean volume (Bld) [Entitic vol] 10.7 fL 9.0 - 12.7 fL [facility] Platelets (Bld) [#/Vol] 369 10*3/uL [facility] RBC (Bld) [#/Vol] 3.72 10*6/uL Low 3.90 - 5.2 0 m/uL [facility] WBC (Bld) [#/Vol] 11.40 10*3/uL [facility] Abdomen/Pelvis W IV Cont ONL Yon 08-19-2023 Abdomen/Pelvis W IV Cont ONLY [facility] [address] [place] [address] Abdomen/Pelvis W IV Cont ONLY MR#: [id number] Acct: [id number] Name: GERTRUDE FLORES Rep #: [id number] : 1940 F 83 From: Stan lagos MD PCP: Dr. Vanessa Her MD Status: REG ER Study: Abdomen/Pelvis W IV Cont ONLY Date of Exam: Exam# [id number] Ordering Dr: Fabio Orozco MD [id number] EXAM: CT ABDOMEN AND PELVIS WITH INTRAVENOUS [...] Fabio Orozco MD; Dr. Vanessa Her MD Delivery Aide: Signed Normal [facility] CBC W/Diff, Automatedon 05- Absolute Lymph 1.88 X10 3/uL Normal 0.83-4.51 [facility] Comment on above: Performed By: #### L 500.4050, L501.4020, L100.0100, L501.2450 #### [facility] [address] [place], [address] Absolute Neut 4.2 X10 3/uL Normal 2.0-7.7 [facility] Comment on above: Performed By: #### L 500.4050, L501.4020, L100.0100, L501.2450 #### [facility] [address] [place], [address] Basophils/100 WBC (Bld) 0.8 % Normal 0-1 [facility] Comment on above: Performed By: #### L 500.4050, L501.4020, L100.0100, L501.2450 #### [facility] [address] [place], [address] Eosinophils/100 WBC (Bld) 3.6 % Normal 0-5 [facility] Comment on above: Performed By: #### L 500.4050, L501.4020, L100.0100, L501.2450 #### [facility] [address] [place], [address] Erythrocyte distribution width (RBC) [Ratio] 12.7 % Normal 11.6-14.6 [facility] Comment on above: Performed By: #### L 500.4050, L501.4020, L100.0100, L501.2450 #### [facility] [address] [place], [address] Hematocrit (Bld) [Volume fraction] 40.3 % Normal 37-47 [facility] Comment on above: Performed By: #### L 500.4050, L501.4020, L100.0100, L501.2450 #### [facility] [address] [place], [address] Hemoglobin (Bld) [Mass/Vol] 12.9 g/dL Normal 12.0-15.0 [facility] Comment on above: Performed By: #### L 500.4050, L501.4020, L100.0100, L501.2450 #### [facility] [address] [place], [address] IG% 0.300 Normal 0.0-0.9 [facility] Comment on above: Result Comment: IG% - Immature Granulocytes (promyelocytes, myelocytes and metamyelocytes) > 1% indicates that a LEFT SHIFT is Present. Performed By: #### L 500.4050, L501.4020, L100.0100, L501.2450 #### [facility] [address] [place], [address] Lymphocytes/100 WBC (Bld) 26.2 % Normal 19-41 [facility] Comment on above: Performed By: #### L 500.4050, L501.4020, L100.0100, L501.2450 #### [facility] [address] [place], [address] MCH (RBC) [Entitic mass] 28.8 pg Normal 27.0-32.0 [facility] Comment on above: Performed By: #### L 500.4050, L501.4020, L100.0100, L501.2450 #### [facility] [address] [place], [address] MCHC (RBC) [Mass/Vol] 32.0 g/dL Normal 32-36 [facility] Comment on above: Performed By: #### L 500.4050, L501.4020, L100.0100, L501.2450 #### [facility] [address] [place], [address] MCV (RBC) [Entitic vol] 90.0 fL Normal 81-99 [facility] Comment on above: Performed By: #### L 500.4050, L501.4020, L100.0100, L501.2450 #### [facility] [address] [place], [address] Monocytes/100 WBC (Bld) 10.2 % High 0-10 [facility] Comment on above: Performed By: #### L 500.4050, L501.4020, L100.0100, L501.2450 #### [facility] [address] [place], [address] Neutrophils/100 WBC (Bld) 58.9 % Normal 47-70 [facility] Comment on above: Performed By: #### L 500.4050, L501.4020, L100.0100, L501.2450 #### [facility] [address] [place], [address] Nucleated RBC (Bld) [#/Vol] 0 10*3/uL Normal 0-5 [facility] Comment on above: Performed By: #### L 500.4050, L501.4020, L100.0100, L501.2450 #### [facility] [address] [place], [address] Platelet mean volume (Bld) [Entitic vol] 10.4 fL Normal 6.2-12.0 [facility] Comment on above: Performed By: #### L 500.4050, L501.4020, L100.0100, L501.2450 #### [facility] [address] [place], [address] Platelets (Bld) [#/Vol] 249 10*3/uL Normal 150-450 [facility] Comment on above: Performed By: #### L 500.4050, L501.4020, L100.0100, L501.2450 #### [facility] [address] [place], [address] RBC (Bld) [#/Vol] 4.48 10*6/uL Normal 4.2-5.4 [facility] Comment on above: Performed By: #### L 500.4050, L501.4020, L100.0100, L501.2450 #### [facility] [address] [place], [address] RDW SD 42.2 fl Normal 35.1-43.9 [facility] Comment on above: Performed By: #### L 500.4050, L501.4020, L100.0100, L501.2450 #### [facility] [address] [place], [address] WBC (Bld) [#/Vol] 7.2 10*3/uL Normal 4.4-11.0 [facility] Comment on above: Performed By: #### L 500.4050, L501.4020, L100.0100, L501.2450 #### [facility] [address] [place], [address] Comprehensive Metabolic Prof [facility] 08-19-2023 Albumin [Mass/Vol] 3.6 g/dL Normal 3.2-5.0 [facility] Comment on above: Order Comment: 'TROP ' Serial specimen #1, #2 or #3: 1 Performed By: #### L 500.4050, L501.4020, L100.0100, L501.2450 #### [facility] [address] [place], [address] Albumin/Globulin [Mass ratio] 1.0 {ratio} Normal 0.9-2.4 [facility] Comment on above: Order Comment: 'TROP ' Serial specimen #1, #2 or #3: 1 Performed By: #### L 500.4050, L501.4020, L100.0100, L501.2450 #### [facility] [address] [place], [address] ALK P 73 U/L Normal 45-117 [facility] Comment on above: Order Comment: 'TROP ' Serial specimen #1, #2 or #3: 1 Performed By: #### L 500.4050, L501.4020, L100.0100, L501.2450 #### [facility] [address] [place], [address] ALT [Catalytic activity/Vol] 13 U/L Normal 13-56 [facility] Comment on above: Order Comment: 'TROP ' Serial specimen #1, #2 or #3: 1 Performed By: #### L 500.4050, L501.4020, L100.0100, L501.2450 #### [facility] [address] [place], [address] AST [Catalytic activity/Vol] 12 U/L Low 15-37 [facility] Comment on above: Order Comment: 'TROP ' Serial specimen #1, #2 or #3: 1 Performed By: #### L 500.4050, L501.4020, L100.0100, L501.2450 #### [facility] [address] [place], [address] Bilirubin [Mass/Vol] 0.50 mg/dL Normal 0.20-1.00 [facility] Comment on above: Order Comment: 'TROP ' Serial specimen #1, #2 or #3: 1 Result Comment: For patients on eltrombopag therapy, use of Dimension [place] TBIL is not recommended. Performed By: #### L 500.4050, L501.4020, L100.0100, L501.2450 #### [facility] [address] [place], [address] BUN/CRE 18.9 RATIO Normal 10-20 [facility] Comment on above: Order Comment: 'TROP ' Serial specimen #1, #2 or #3: 1 Performed By: #### L 500.4050, L501.4020, L100.0100, L501.2450 #### [facility] [address] [place], [address] CA,Total 10.2 mg/dL High 8.5-10.1 [facility] Comment on above: Order Comment: 'TROP ' Serial specimen #1, #2 or #3: 1 Performed By: #### L 500.4050, L501.4020, L100.0100, L501.2450 #### [facility] [address] [place], [address] Chloride [Moles/Vol] 106 mmol/L Normal 98-107 [facility] Comment on above: Order Comment: 'TROP ' Serial specimen #1, #2 or #3: 1 Performed By: #### L 500.4050, L501.4020, L100.0100, L501.2450 #### [facility] [address] [place], [address] CO2 [Moles/Vol] 27.0 mmol/L Normal 21.0-32.0 [facility] Comment on above: Order Comment: 'TROP ' Serial specimen #1, #2 or #3: 1 Performed By: #### L 500.4050, L501.4020, L100.0100, L501.2450 #### [facility] [address] [place], [address] Creatinine [Mass/Vol] 1.06 mg/dL High 0.55-1.02 [facility] Comment on above: Order Comment: 'TROP ' Serial specimen #1, #2 or #3: 1 Result Comment: The validity of the calculated GFR GFRAA in patients over 70 years has not been determined. Clinical correlation is essential. Performed By: #### L 500.4050, L501.4020, L100.0100, L501.2450 #### [facility] [address] [place], [address] ECRCL 43.48 ml/min Normal [facility] Comment on above: Order Comment: 'TROP ' Serial specimen #1, #2 or #3: 1 Performed By: #### L 500.4050, L501.4020, L100.0100, L501.2450 #### [facility] [address] [place], [address] EST GFR - AA 64 mL/min Normal >60 [facility] Comment on above: Order Comment: 'TROP ' Serial specimen #1, #2 or #3: 1 Result Comment: Afri can [place] GFR Calc Performed By: #### L 500.4050, L501.4020, L100.0100, L501.2450 #### [facility] [address] [place], [address] GAP 7 Normal 5-15 [facility] Comment on above: Order Comment: 'TROP ' Serial specimen #1, #2 or #3: 1 Performed By: #### L 500.4050, L501.4020, L100.0100, L501.2450 #### [facility] [address] [place], [address] GFR/1.73 sq M.predicted among non-blacks MDRD (S/P/Bld) [Vol rate/Area] 53 mL/min/{1.73_m2} Low >60 [facility] Comment on above: Order Comment: 'TROP ' Serial specimen #1, #2 or #3: 1 Result Comment: Non- GFR Calc Performed By: #### L 500.4050, L501.4020, L100.0100, L501.2450 #### [facility] [address] [place], [address] Globulin (S) [Mass/Vol] 3.5 g/dL Normal 2.2-4.2 [facility] Comment on above: Order Comment: 'TROP ' Serial specimen #1, #2 or #3: 1 Performed By: #### L 500.4050, L501.4020, L100.0100, L501.2450 #### [facility] [address] [place], [address] Glucose [Mass/Vol] 105 mg/dL Normal 74-106 [facility] Comment on above: Order Comment: 'TROP ' Serial specimen #1, #2 or #3: 1 Result Comment: Fast ing Glucose result from 100 to 125 mg/dL suggests IMPAIRED HOMEOSTASIS per A.D.A. criteria. Performed By: #### L 500.4050, L501.4020, L100.0100, L501.2450 #### [facility] [address] [place], [address] Potassium [Moles/Vol] 3.9 mmol/L Normal 3.5-5.1 [facility] Comment on above: Order Comment: 'TROP ' Serial specimen #1, #2 or #3: 1 Performed By: #### L 500.4050, L501.4020, L100.0100, L501.2450 #### [facility] [address] [place], [address] Sodium [Moles/Vol] 140 mmol/L Normal 136-145 [facility] Comment on above: Order Comment: 'TROP ' Serial specimen #1, #2 or #3: 1 Performed By: #### L 500.4050, L501.4020, L100.0100, L501.2450 #### [facility] [address] [place], [address] T PROT 7.1 g/dL Normal 6.4-8.2 [facility] Comment on above: Order Comment: 'TROP ' Serial specimen #1, #2 or #3: 1 Performed By: #### L 500.4050, L501.4020, L100.0100, L501.2450 #### [facility] [address] [place], [address] Urea nitrogen [Mass/Vol] 20 mg/dL High 7-18 [facility] Comment on above: Order Comment: 'TROP ' Serial specimen #1, #2 or #3: 1 Performed By: #### L 500.4050, L501.4020, L100.0100, L501.2450 #### [facility] [address] [place], [address] Emergency Department Summary on 08-19-2023 Emergency Department Summary [facility] Medical Records Department [address] [place] [address] Emergency Department Summary 08/19/23 MR#: [id number] Acct: [id number] Name: GERTRUDE FLORES Rep #: [id number] : 1940 83 From: Fabio Orozco MD [...] alleviating factors. Past abdominal surgery includes cholecystectomy. [facility] Medical History Kidney disease Hypertension Dementia Home [...] safely home with follow-up. She will start gqhw-[id number] MiraLAX and stool softeners. Follow-up with her primary care provider. Return instructions were reviewed. Disposition is discharged home in stable condition. History Record Review Discussion w/independent historian: Patient and Family () Lab Data Attestation: I reviewed the patient's lab results. Labs: (more content not included)... Normal [facility] L501.4020on 08-19-2023 TROPONIN-I HS 7 pg/mL Normal 3.0-54.0 [facility] Comment on above: Order Comment: 'TROP ' Serial specimen #1, #2 or #3: 1 Result Comment: Plea se Note: New Test Units and Gender Specific Reference Ranges. For more information see Policy Stat Procedure [place] High Sensitivity Troponin (TNIH) and attachments. Performed By: #### L 500.4050, L501.4020, L100.0100, L501.2450 #### [facility] [address] [place], [address] Lipaseon 08-19-2023 Lipase [Catalytic activity/Vol] 62 U/L Normal 13-75 [facility] Comment on above: Order Comment: 'TROP ' Serial specimen #1, #2 or #3: 1 Result Comment: Demond kramer note: LIPASE revised reference range effective 22. New Lipase methodology. Expected to produce lower values than the previous assay method. NEW Reference Range: 13 - 75 U/L Performed By: #### L 500.4050, L501.4020, L100.0100, L501.2450 #### [facility] [address] [place], [address] Urinalysis, Completeon 08-18 RBC 0-5 SEEN Normal 0-5 [facility] Comment on above: Order Comment: 'TROP ' Serial specimen #1, #2 or #3: 1 Performed By: #### L 500.4050, L501.4020, L100.0100, L501.2450 #### [facility] [address] [place], [address] WBC 0-5 SEEN Normal 0-5 [facility] Comment on above: Order Comment: 'TROP ' Serial specimen #1, #2 or #3: 1 Performed By: #### L 500.4050, L501.4020, L100.0100, L501.2450 #### [facility] [address] [place], [address] BACTERIA 0 SEEN Normal None Seen [facility] Comment on above: Order Comment: 'TROP ' Serial specimen #1, #2 or #3: 1 Performed By: #### L 500.4050, L501.4020, L100.0100, L501.2450 #### [facility] [address] [place], [address] EPI,SQUAMOUS 0 SEEN Normal 5-10 [facility] Comment on above: Order Comment: 'TROP ' Serial specimen #1, #2 or #3: 1 Performed By: #### L 500.4050, L501.4020, L100.0100, L501.2450 #### [facility] [address] [place], [address] Mucus Ql (Urine sed) 0 SEEN Normal [facility] Comment on above: Order Comment: 'TROP ' Serial specimen #1, #2 or #3: 1 Performed By: #### L 500.4050, L501.4020, L100.0100, L501.2450 #### [facility] [address] [place], [address] EKGon 03-08-2023 Electrocardiogram Ventricular Rate : 6 2 BPM Atrial Rate : 62 BPM P-R Interval : 168 ms QRS Duration : 98 ms Q-T Interval : 412 ms QTC Calculation(Bazett) : 418 ms Calculated P Dennis : 85 degrees Calculated R Dennis : 35 degrees Calculated T Dennis : 40 degrees SINUS RHYTHM WITH MARKED SINUS ARRHYTHMIA OTHERWISE NORMAL ECG NO PREVIOUS ECGS AVAILABLE Confirmed by MD CROCKER GREGORY () on 03/12/2023 3:28:36 PM NAME : GERTRUDE FLORES PID : [id number] : 1940 Gender : Female Race : ORD : Procedure Date : Mar 07 2023 22:35:36 Edit Date : Mar 12 2023 15:28:42 Diagnosis: SINUS RHYTHM WITH MARKED SINUS ARRHYTHMIA OTHERWISE NORMAL ECG NO PREVIOUS ECGS AVAILABLE Confirmed by MD CROCKER GREGORY () on 03/12/2023 3:28:36 PM Test Reason : Location : [address] [place] [address] Overread By : MD CROCKER GREGORY Edited By : MD CROCKER GREGORY Referred By : , Acquired by : Rozina Luis, [facility] 03-07-2023 OV Office Visit (CARMED ) GERTRUDE FLORES ([id number]) 1940 F Date Time Provider Department 03/07/23 10:20 AM ROSSY CROCKER REMI During your visit today, we recorded the following information about you: Pulse Blood pressure Weight Height 62/minute 128/82 76.7 kg 1.676 m Rossy Crocker, DO 03/07/2023 2:03 PM Signed [facility] OUTPATIENT VISIT DATE March 07, 2023 PRIMARY CARE PHYSICIAN: Vanessa Her [address] [place] [address] HISTORY OF PRESENT ILLNESS: Ms. Flores is [...] excluded but felt less likely. Correlate clinically. Delivery Aide: COOPER Transcribe Date/Time: Oct 22 2022 11:33A Dictated by : BETTE JOHNSON MD This examination was interpreted and the report reviewed and electronically signed by: BETTE JOHNSON MD on Oct 22 2022 11:35AM EST [id number] N Normal [facility] No Panel Informationon 11-21 [facility] MRI BRAIN WO/W IVCONon 10-24 [facility] MRI 3D POST PROCESSINGon MRI 3D POST PROCESSING * * *Final Report * * * DATE OF EXAM: Jul 11 2021 12:35PM [facility] - MRI 3D POST PROCESSING / [...] dementia protocol and 3-D post-processing using the [employer] software at an independent workstation with concurrent [...] = Focal Lesions 2 = Beginning of [place] 3 = Diffuse Involvement of Entire Region [...] Jul 11 2021 2:26PM EST [id number] N [facility] MRI BRAIN W QUANT WO IVCONon 07-11-2021 MRI BRAIN W QUANT WO IVCON * * *Final Report* * * DATE OF EXAM: Jul 11 2021 12:35PM [facility]015 - MRI BRAIN W QUANT WO [...] dementia protocol and 3-D post-processing using the Bruxie software at an independent workstation with concurrent [...] = Focal Lesions 2 = Beginning of [place] 3 = Diffuse Involvement of Entire Region [...] 11 2021 2:26PM EST [id number] N Normal [facility] Absolute lymphocyte counton 06-11-2021 Lymphocytes Auto (Unsp spec) [#/Vol] 0.76 10*3/uL 0.83-4.51 [facility] Work Phone: Basophil percentageon 2021 Basophil percentage 0-5 SEEN /hpf [facility] Work Phone: Basophils/100 WBC (Bld) 0.4 % 0-1 [facility] Work Phone: Bilirubin [Mass/Vol] 0.60 mg/dL 0.20-1.00 [facility] Work Phone: Comment on above: For patients on eltr ombopag therapy, use of Dimension [place] TBIL is not recommended. Chloride [Moles/Vol] 108 mmol/L 98-107 [facility] Work Phone: Eosinophils/100 WBC (Bld) 0.9 % 0-5 [facility] Work Phone: Glucose [Mass/Vol] 131 mg/dL 74-106 [facility] Work Phone: Comment on above: Fasting Glucose resu lt greater than or equal to 126 mg/dL suggests DIABETES MELLITUS per A.D.A. criteria. Neutrophils (Bld) [#/Vol] 5.8 10*3/uL 2.0-7.7 [facility] Work Phone: Neutrophils/100 WBC (Bld) 82.4 % 47-70 [facility] Work Phone: Potassium [Moles/Vol] 3.7 mmol/L 3.5-5.1 [facility] Work Phone: Protein [Mass/Vol] 7.3 g/dL 6.4-8.2 [facility] Work Phone: Sodium [Moles/Vol] 139 mmol/L 136-145 [facility] Work Phone: WBC (Bld) [#/Vol] 7.0 10*3/uL 4.4-11.0 [facility] Work Phone: Bilirubin Test strip Ql (U)o n 06-11-2021 Bilirubin Ql (U) Negative Negative [facility] Work Phone: Blood erythrocytes count (nu mber/volume)on 06-11-2021 RBC (Bld) [#/Vol] 4.49 10*6/uL 4.2-5.4 [facility] Work Phone: Blood hemoglobin measurement (mass/volume)on 06-11-2021 Hemoglobin (Bld) [Mass/Vol] 13.4 g/dL 12.0-15.0 [facility] Work Phone: Blood lymphocytes/100 leukoc yteson 06-11-2021 Lymphocytes/100 WBC (Bld) 10.8 % 19-41 [facility] Work Phone: Blood monocytes/100 leukocyt eson 06-11-2021 Monocytes/100 WBC (Bld) 5.1 % 0-10 [facility] Work Phone: Blood platelet mean volumeon 06-11-2021 Platelet mean volume (Bld) [Entitic vol] 10.7 fL 6.2-12.0 [facility] Work Phone: [phone] Determination of erythrocyte mean corpuscular volume (MCV)on 06-11-2021 MCV (RBC) [Entitic vol] 90.6 fL 81-99 [facility] Work Phone: [phone] Hematocrit Auto (Bld) [Volum e fraction]on 06-11-2021 Hematocrit (Bld) [Volume fraction] 40.7 % 37-47 [facility] Work Phone: [phone] Ketones Test strip Ql (U)on 06-11-2021 Ketones Ql (U) 5 mg/dl Negative [facility] Work Phone: [phone] Laboratory - Chemistry and C hemistry - challengeon 06-11-2021 ALP [Catalytic activity/Vol] 78 U/L 45-117 [facility] Work Phone: [phone] ALT [Catalytic activity/Vol] 17 U/L 13-56 [facility] Work Phone: [phone] CO2 [Moles/Vol] 28.0 mmol/L 21.0-32.0 [facility] Work Phone: [phone] Globulin (S) [Mass/Vol] 3.6 g/dL 2.2-4.2 [facility] Work Phone: [phone] Lipase [Catalytic activity/Vol] 334 U/L 73-393 [facility] Work Phone: [phone] Urea nitrogen/Creatinine [Mass ratio] 15.6 mg/mg 10-20 [facility] Work Phone: [phone] Laboratory - Hematology and Cell countson 06-11-2021 Erythrocyte distribution width (RBC) [Entitic vol] 42.5 fL 35.1-43.9 [facility] Work Phone: [phone] Erythrocyte distribution width (RBC) [Ratio] 12.8 % 11.6-14.6 [facility] Work Phone: [phone] Immature granulocytes/100 WBC (Bld) 0.400 % 0.0-0.9 [facility] Work Phone: Comment on above: IG% - Immature Granu locytes (promyelocytes, myelocytes and metamyelocytes) > 1% indicates that a LEFT SHIFT is Present. MCH (RBC) [Entitic mass] 29.8 pg 27.0-32.0 [facility] Work Phone: Nucleated RBC/100 WBC (Bld) [Ratio] 0 % 0-5 [facility] Work Phone: [phone] MCHC Auto (RBC) [Mass/Vol]on 06-11-2021 MCHC (RBC) [Mass/Vol] 32.9 g/dL 32-36 [facility] Work Phone: Mucus LM Ql (Urine sed)on Mucus Ql (Urine sed) 0 SEEN /hpf [facility] Work Phone: [phone] Nitrite Test strip Ql (U)on 06-11-2021 Nitrite Ql (U) Negative Negative [facility] Work Phone: No Panel Informationon 06-11 Estimated Creatinine Clearance Calc 42.76 ml/min [facility] Work Phone: Estimated GFR (MDRD) Amer 72 mL/min >60 [facility] Work Phone: Comment on above: GFR Calc Estimated GFR (MDRD) Non-Af Amer 59 mL/min >60 [facility] Work Phone: [phone] Comment on above: Non- GFR Calc Thyroid Stimulating Hormone (TSH) 0.16 uIU/mL 0.358-3.74 [facility] Work Phone: [phone] Troponin I High Sensitivity 6 pg/mL 3.0-54.0 [facility] Work Phone: [phone] Comment on above: Please Note: New Sherly t Units and Gender Specific Reference Ranges. For more information see Policy Stat Procedure [place] High Sensitivity Troponin (TNIH) and attachments. Platelets bldon 06-11-2021 Platelets (Bld) [#/Vol] 242 10*3/uL 150-450 [facility] Work Phone: Protein Test strip Ql (U)on 06-11-2021 Protein Ql (U) Negative Negative [facility] Work Phone: [phone] Serum or plasma albumin derrick urement (mass/volume)on 06-11-2021 Albumin [Mass/Vol] 3.7 g/dL 3.2-5.0 [facility] Work Phone: [phone] Serum or plasma albumin/glob ulin mass ratioon 06-11-2021 Albumin/Globulin [Mass ratio] 1.0 {ratio} 0.9-2.4 [facility] Work Phone: [phone] Serum or plasma calcium derrick urement (mass/volume)on 06-11-2021 Calcium [Mass/Vol] 8.7 mg/dL 8.5-10.1 [facility] Work Phone: [phone] Serum or plasma creatinine m easurement (mass/volume)on 06-11-2021 Creatinine [Mass/Vol] 0.96 mg/dL 0.55-1.02 [facility] Work Phone: Comment on above: The validity of the calculated GFR & GFRAA in patients over 70 years has not been determined. Clinical correlation is essential. Serum or plasma urea nitroge n measurement (mass/volume)on 06-11-2021 Urea nitrogen [Mass/Vol] 15 mg/dL 7-18 [facility] Work Phone: [phone] Squamous epithelial cells de tection in urine sediment by light microscopyon 06-11-2021 Epithelial cells.squamous LM Ql (Urine sed) 0 SEEN /hpf [facility] Work Phone: [phone] Thin prep Papanicolaou smear with manual screeningon 06-11-2021 Thin prep Papanicolaou smear with manual screening 15 U/L 15-37 [facility] Work Phone: [phone] Thin prep Papanicolaou smear with manual screening 3 5-15 [facility] Work Phone: [phone] Urine blood detectionon 05-24-2021 RBC Ql (U) 50 /ul Negative [facility] Work Phone: RBC Ql (U) 0-5 SEEN /hpf [facility] Work Phone: Urine clarityon 06-11-2021 Clarity (U) Clear Clear [facility] Work Phone: Urine color determinationon 06-11-2021 Color (U) Yellow Yellow [facility] Work Phone: Urine glucose detectionon Glucose Ql (U) Normal mg/dl Normal [facility] Work Phone: Urine leukocyte esterase det ection by dipstickon 06-11-2021 Leukocyte esterase Test strip Ql (U) 25 /ul Negative [facility] Work Phone: Urine pHon 06-11-2021 pH (U) 6.0 [pH] [facility] Work Phone: Urine sediment bacteria coun t by microscopy (number/high power field)on 06-11-2021 Bacteria LM.HPF (Urine sed) [#/Area] 0 /[HPF] None Seen [facility] Work Phone: Urine specific gravity measu rementon 06-11-2021 Specific gravity (U) [Rel density] 1.015 [facility] Work Phone: Urobilinogen Auto test strip Ql (U)on 06-11-2021 Urobilinogen Ql (U) Normal mg/dl Normal [facility] Work Phone: Vital Signs Date Time Vital Sign Value Performing Clinician Facility 10-16-2024 09:57-0400 Body mass index (BMI) [Ratio] 30.05 kg/m2 Vanessa Her MD Work Phone: [facility] 10-16-2024 09:57-0400 Body weight 81.92 kg Vanessa Her MD Work Phone: [facility] 10-16-2024 09:57-0400 Diastolic blood pressure 77 mm[Hg] Vanessa Her MD Work Phone: [facility] 10-16-2024 09:57-0400 Heart rate 66 /min Vanessa Her MD Work Phone: [facility] 10-16-2024 09:57-0400 Respiratory rate 16 /min Vanessa Her MD Work Phone: [facility] 10-16-2024 09:57-0400 Systolic blood pressure 135 mm[Hg] Vanessa Her MD Work Phone: [facility] 06-10-2024 11:28-0400 Body height 165.1 cm Juana Prabhakar ADMISSIONS CLINICIAN.FIRE SUPPRESSION CAPTAIN Work Phone: [facility] 06-10-2024 11:28-0400 Body mass index (BMI) [Ratio] 30.45 kg/m2 Juana Prabhakar ADMISSIONS CLINICIAN.FIRE SUPPRESSION CAPTAIN Work Phone: [facility] 06-10-2024 11:28-0400 Body weight 83 kg Juana Prabhakar ADMISSIONS CLINICIAN.FIRE SUPPRESSION CAPTAIN Work Phone: [facility] 06-10-2024 11:28-0400 Diastolic blood pressure 74 mm[Hg] Juana Prabhakar ADMISSIONS CLINICIAN.FIRE SUPPRESSION CAPTAIN Work Phone: [facility] 06-10-2024 11:28-0400 Heart rate 61 /min Juana Prabhakar ADMISSIONS CLINICIAN.FIRE SUPPRESSION CAPTAIN Work Phone: [facility] 06-10-2024 11:28-0400 SaO2% (BldA) [Mass fraction] 99 % Juana Prabhakar ADMISSIONS CLINICIAN.FIRE SUPPRESSION CAPTAIN Work Phone: [facility] 06-10-2024 11:28-0400 Systolic blood pressure 132 mm[Hg] Juana Prabhakar ADMISSIONS CLINICIAN.FIRE SUPPRESSION CAPTAIN Work Phone: [facility] 05-19-2024 09:03-0500 Body height 165.1 cm Vanessa Her MD Work Phone: [facility] 05-19-2024 09:03-0500 Body mass index (BMI) [Ratio] 30.29 kg/m2 Vanessa Her MD Work Phone: [facility] 05-19-2024 09:03-0500 Body weight 82.56 kg Vanessa Her MD Work Phone: [facility] 05-19-2024 09:03-0500 Diastolic blood pressure 88 mm[Hg] Vanessa Her MD Work Phone: [facility] 05-19-2024 09:03-0500 Heart rate 67 /min Vanessa Her MD Work Phone: [facility] 05-19-2024 09:03-0500 SaO2% (BldA) [Mass fraction] 98 % Vanessa Her MD Work Phone: [facility] 05-19-2024 09:03-0500 Systolic blood pressure 138 mm[Hg] Vanessa Her MD Work Phone: [facility] 03-09-2024 10:58-0500 Body height 165.1 cm Rossy Crocker DO Work Phone: [facility] 03-09-2024 10:58-0500 Body mass index (BMI) [Ratio] 28.51 kg/m2 Rossy Crocker DO Work Phone: [facility] 03-09-2024 10:58-0500 Body weight 77.7 kg Rossy Crocker DO Work Phone: [facility] 03-09-2024 10:58-0500 Diastolic blood pressure 74 mm[Hg] Rossy Crocker DO Work Phone: [facility] 03-09-2024 10:58-0500 Heart rate 83 /min Rossy Crocker DO Work Phone: [facility] 03-09-2024 10:58-0500 SaO2% (BldA) [Mass fraction] 98 % oRssy Crocker DO Work Phone: [facility] 03-09-2024 10:58-0500 Systolic blood pressure 126 mm[Hg] Rossy Crocker DO Work Phone: [facility] 02-17-2024 14:03-0500 Body mass index (BMI) [Ratio] 29.95 kg/m2 Vanessa Her MD Work Phone: [facility] 02-17-2024 14:03-0500 Body weight 81.65 kg Vanessa Her MD Work Phone: [facility] 02-17-2024 14:03-0500 Diastolic blood pressure 81 mm[Hg] Vanessa Her MD Work Phone: [facility] 02-17-2024 14:03-0500 Heart rate 62 /min Vanessa Her MD Work Phone: [facility] 02-17-2024 14:03-0500 Respiratory rate 16 /min Vanessa Her MD Work Phone: [facility] 02-17-2024 14:03-0500 Systolic blood pressure 149 mm[Hg] Vanessa Her MD Work Phone: [facility] 11-13-2023 07:38-0400 Body height 165.1 cm Vanessa Her MD Work Phone: [facility] 11-13-2023 07:38-0400 Body mass index (BMI) [Ratio] 30.79 kg/m2 Vanessa Her MD Work Phone: [facility] 11-13-2023 07:38-0400 Body weight 83.92 kg Vanessa Her MD Work Phone: [facility] 11-13-2023 07:38-0400 Diastolic blood pressure 70 mm[Hg] Vanessa Her MD Work Phone: [facility] 11-13-2023 07:38-0400 Heart rate 57 /min Vanessa Her MD Work Phone: [facility] 11-13-2023 07:38-0400 Respiratory rate 16 /min Vanessa Her MD Work Phone: [facility] 11-13-2023 07:38-0400 Systolic blood pressure 124 mm[Hg] Vanessa Her MD Work Phone: [facility] 10-24-2023 09:19-0400 Body mass index (BMI) [Ratio] 28.92 kg/m2 Vanessa Her MD Work Phone: [facility] 10-24-2023 09:19-0400 Body weight 81.28 kg Vanessa Her MD Work Phone: [facility] 10-24-2023 09:19-0400 Diastolic blood pressure 68 mm[Hg] Vanessa Her MD Work Phone: [facility] 10-24-2023 09:19-0400 Heart rate 65 /min Vanessa Her MD Work Phone: [facility] 10-24-2023 09:19-0400 SaO2% (BldA) [Mass fraction] 98 % Vanessa Her MD Work Phone: [facility] 10-24-2023 09:19-0400 Systolic blood pressure 128 mm[Hg] Vanessa Her MD Work Phone: [facility] 05-03-2023 11:00-0500 Diastolic blood pressure 70 mm[Hg] Tanna Lemon PT [facility] 05-03-2023 11:00-0500 Systolic blood pressure 123 mm[Hg] Tanna Lemon PT [facility] 2023 12:29-0500 Body temperature 97.81 [degF] Kinga Slabaugh PA-C Work Phone: [facility] 2023 12:29-0500 Body weight 79.83 kg Kinga Slabaugh PA-C Work Phone: [facility] 2023 12:29-0500 Diastolic blood pressure 85 mm[Hg] Kinga Slabaugh PA-C Work Phone: [facility] 2023 12:29-0500 Heart rate 69 /min Kinga Slabaugh PA-C Work Phone: [facility] 2023 12:29-0500 Respiratory rate 18 /min Kinga Slabaugh PA-C Work Phone: [facility] 2023 12:29-0500 SaO2% (BldA) [Mass fraction] 99 % Kinga Slabaugh PA-C Work Phone: [facility] 2023 12:29-0500 Systolic blood pressure 171 mm[Hg] Kinga Melendrez PA-C Work Phone: [facility] 03-07-2023 [id number] Body height 167.6 cm Rossy Crocker DO Work Phone: [facility] 03-07-2023 10:26-0500 Body weight 76.66 kg Rossy Crocker DO Work Phone: [facility] 03-07-2023 10:26-0500 Diastolic blood pressure 82 mm[Hg] Rossy Crocker DO Work Phone: [facility] 03-07-2023 10:26-0500 Heart rate 62 /min Rossy Crocker DO Work Phone: [facility] 03-07-2023 10:26-0500 SaO2% (BldA) [Mass fraction] 97 % Rossy Crocker DO Work Phone: [facility] 03-07-2023 [id number]:260500 Systolic blood pressure 128 mm[Hg] Rossy Crocker DO Work Phone: [facility] 11-13-2022 13:11-0400 Body height 167.6 cm Tejinder Funes MD Work Phone: [facility] 11-13-2022 13:11-0400 Body temperature 97.2 [degF] Tejinder Funes MD Work Phone: [facility] 11-13-2022 13:11-0400 Body weight 81.19 kg Tejinder Funes MD Work Phone: [facility] 11-13-2022 13:11-0400 Diastolic blood pressure 64 mm[Hg] Tejinder Funes MD Work Phone: [facility] 11-13-2022 13:11-0400 Heart rate 86 /min Tejinder Funes MD Work Phone: [facility] 11-13-2022 13:11-0400 SaO2% (BldA) [Mass fraction] 100 % Tejinder Funes MD Work Phone: [facility] 11-13-2022 13:11-0400 Systolic blood pressure 118 mm[Hg] Tejinder Funes MD Work Phone: [facility] 07-10-2022 08:39-0400 Body height 167.6 cm Oneyda Ramos MD Work Phone: [facility] 07-10-2022 08:39-0400 Body temperature 96.8 [degF] Oneyda Ramos MD Work Phone: [facility] 07-10-2022 08:39-0400 Body weight 84.28 kg Oneyda Ramos MD Work Phone: [facility] 07-10-2022 08:39-0400 Diastolic blood pressure 82 mm[Hg] Oneyda Ramos MD Work Phone: [facility] 07-10-2022 08:39-0400 Heart rate 117 /min Oneyda Ramos MD Work Phone: [facility] 07-10-2022 08:39-0400 SaO2% (BldA) [Mass fraction] 98 % Oneyda Ramos MD Work Phone: [facility] 07-10-2022 08:39-0400 Systolic blood pressure 118 mm[Hg] Oneyda Ramos MD Work Phone: [facility] 11-16-2021 10:27-0400 Body height 162.6 cm Faith Stewart PA-C Work Phone: [facility] 11-16-2021 10:27-0400 Body weight 88 kg Faith Stewart PA-C Work Phone: [facility] 11-16-2021 10:27-0400 Diastolic blood pressure 80 mm[Hg] Faith Stewart PA-C Work Phone: [facility] 11-16-2021 10:27-0400 Heart rate 72 /min Faith Stewart PA-C Work Phone: [facility] 11-16-2021 10:27-0400 Systolic blood pressure 134 mm[Hg] Faith Stewart PA-C Work Phone: [facility] 10-05-2021 09:35-0400 Body temperature 97.9 [degF] Vanessa Her MD Work Phone: [facility] 10-05-2021 09:35-0400 Body weight 89.81 kg Vanessa Her MD Work Phone: [facility] 10-05-2021 09:35-0400 Diastolic blood pressure 80 mm[Hg] Vanessa Her MD Work Phone: [facility] 10-05-2021 09:35-0400 Heart rate 66 /min Vanessa Her MD Work Phone: [facility] 10-05-2021 09:35-0400 Respiratory rate 16 /min Vanessa Her MD Work Phone: [facility] 10-05-2021 09:35-0400 SaO2% (BldA) [Mass fraction] 98 % Vanessa Her MD Work Phone: [facility] 10-05-2021 09:35-0400 Systolic blood pressure 130 mm[Hg] Vanessa Her MD Work Phone: [facility] 07-11-2021 13:55-0400 Body weight 92.17 kg Joaquin Palacios APRN.[employer] SUP[employer]ION CAPTAIN Work Phone: [facility] 07-11-2021 13:55-0400 Diastolic blood pressure 63 mm[Hg] Joaquin Palacios APRN.FI[employer] SUPPRESSION CAPTAIN Work Phone: [facility] 07-11-2021 13:55-0400 Heart rate 78 /min Joaquin Palacios APRN.FI[employer] SUPPRESSION CAPTAIN Work Phone: [facility] 07-11-2021 13:55-0400 Systolic blood pressure 114 mm[Hg] Joaquin Palacios APRN.FI[employer] SUPPRESSION CAPTAIN Work Phone: [facility] 06-11-2021 15:54-0400 Diastolic blood pressure 73 mm[Hg] [facility] Work Phone: 06-11-2021 15:54-0400 Heart rate 84 /min [facility] Work Phone: 06-11-2021 15:54-0400 Respiratory rate 16 /min [facility] Work Phone: 06-11-2021 15:54-0400 SaO2% (BldA) [Mass fraction] 99 % [facility] Work Phone: 06-11-2021 15:54-0400 Systolic blood pressure 158 mm[Hg] [facility] Work Phone: 06-11-2021 12:17-0400 Body height 165.1 cm [facility] Work Phone: 06-11-2021 12:17-0400 Body mass index (BMI) [Ratio] 35.3 kg/m2 [facility] Work Phone: 06-11-2021 12:17-0400 Body temperature 97.8 [degF] [facility] Work Phone: 06-11-2021 12:17-0400 Body weight 96.3 kg [facility] Work Phone: Encounters Encounter Date Encounter Type Care Provider Facility Start: 11-27-2024 End: 11-27-2024 Patient Outreach Maria Esther Sosa RN Work Phone: [employer] Comment on above: Transition Of Care ( Chart review) Start: 10-27-2024 End: 10-27-2024 Telephone encounter Yris GARCIA Work Phone: [employer] Start: 10-23-2024 End: 10-23-2024 Telephone encounter Yris GARCIA Work Phone: [employer] Start: 10-22-2024 End: 10-22-2024 Telephone encounter Shelbie Cm MD Work Phone: [employer] Comment on above: Initial Consult ([facility] [id number]) Start: 10-22-2024 End: 10-22-2024 ambulatory Shelbie Cm MD Work Phone: [employer] Comment on above: Palliative care by s pecialist (Primary Dx); 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) Start: 10-22-2024 End: 10-22-2024 Telemedicine consultation with patient Shelbie Cm MD Work Phone: [employer] Start: 10-20-2024 End: 10-21-2024 Telephone encounter Nehal Pablo [facility] Comment on above: Compliance Adherence Start: 10-19-2024 End: 10-20-2024 Telephone encounter Pranav Gorman MSW Navigation Start: 10-16-2024 End: 10-16-2024 Patient encounter procedure Vanessa Her MD Work Phone: [facility] [place] Comment on above: Persistent atrial fi brillation (HCC) (Primary Dx); Medicare annual wellness visit, subsequent; Severe late onset Alzheimer's dementia, unspecified whether behavioral, psychotic, or mood disturbance or anxiety (HCC); Stage 3a chronic kidney disease (HCC); Screening for depression; Encounter for screening examination for other mental health and behavioral disorders Start: 10-16-2024 End: 10-16-2024 ambulatory [facility] Facility:[facility] Start: 09-14-2024 End: 09-14-2024 ambulatory Milana Dietrich MA [facility] [place] Start: 09-14-2024 End: 09-14-2024 Patient encounter procedure Milana Dietrich MA [facility] Comment on above: Population Health Na vigation Outreach ( ERIC [place] [facility]SA // ) Start: 08-21-2024 End: 08-21-2024 ambulatory [facility] Facility:[facility] Start: 08-21-2024 End: 08-21-2024 Office consultation new/estab patient 40 min Vanessa Her MD Work Phone: Internal Medicine [place] Comment on above: Dementia without beh avioral disturbance (HCC) (Primary Dx); Medical non-compliance; Acquired hypothyroidism Start: 06-12-2024 End: 06-16-2024 Paul Lambert APRN.CNP Work Phone: [facility] Comment on above: Refill Request Start: 06-10-2024 End: 06-10-2024 ambulatory ROSSY CROCKER Facility:[facility] Start: 06-10-2024 End: 06-10-2024 Office outpatient visit 15 minutes Juana Prabhakar APRN.FIRE SUPPRESSION CAPTAIN Work Phone: Cardiology Comment on above: Persistent atrial fi brillation (HCC) (Primary Dx); Essential hypertension; Mixed hyperlipidemia; PVC's (premature ventricular contractions) Start: 05-26-2024 End: 05-27-2024 Refill Yamilet Garciabeckie [facility] ing Comment on above: Refill Request Start: 05-19-2024 End: 05-19-2024 [facility] Start: 05-19-2024 End: 05-19-2024 Office outpatient visit 25 minutes Vanessa Her MD Work Phone: Internal Medicine [place] Comment on above: Acquired hypothyroid ism (Primary Dx); Dementia with behavioral disturbance (HCC); Essential hypertension; Anemia, unspecified type; Stage 3a chronic kidney disease (HCC); Caregiver stress Start: 04-09-2024 End: 04-09-2024 ambulatory [facility] Facility:[facility] Start: 04-05-2024 End: 04-08-2024 Refill Erica Noonan APRN.FIRE SUPPRESSION CAPTAIN Work Phone: Internal Medicine [place] Comment on above: Refill Request Start: 03-09-2024 End: 03-09-2024 [facility] Facility:[facility] Start: 03-09-2024 End: 03-09-2024 Patient encounter procedure Rossy Crocker DO Work Phone: Cardiology Comment on above: Persistent atrial fi brillation (HCC) (Primary Dx); PVC's (premature ventricular contractions); Essential hypertension; Mixed hyperlipidemia Start: 02-17-2024 End: 02-17-2024 Patient encounter procedure Vanessa Her MD Work Phone: Internal Medicine [place] Comment on above: Alzheimer's dementia without behavioral disturbance, psychotic disturbance, mood disturbance, or anxiety, unspecified dementia severity, unspecified timing of dementia onset (HCC) (Primary Dx) Start: 02-17-2024 End: 02-17-2024 ambulatory [facility] Facility:[facility] Start: 02-11-2024 End: 02-11-2024 ambulatory [facility] Facility:[facility] Start: 02-04-2024 End: 02-07-2024 ambulatory Vanessa Her MD Work Phone: Internal Medicine [place] [id number] Start: 11-22-2023 End: 11-22-2023 Emergency department patient visit [facility] Facility:[facility] Start: 11-14-2023 End: 06-02-2024 Telephone encounter Vanessa Her MD Work Phone: Internal Medicine [place] Start: 11-13-2023 End: 11-13-2023 Patient encounter procedure Vanessa Her MD Work Phone: Internal Medicine [place] Comment on above: Alzheimer's disease (HCC) (Primary Dx); Anemia, unspecified type Start: 10-24-2023 End: 11-14-2023 Telephone encounter Vanessa Her MD Work Phone: Internal Medicine [place] Comment on above: Orders (Geriatric co nsult) Start: 10-24-2023 End: 10-24-2023 Office outpatient visit 25 minutes Vanessa Her MD Work Phone: Internal Medicine [place] Comment on above: Alzheimer's disease (HCC) (Primary Dx); Weight loss; Acquired hypothyroidism; Essential hypertension; Primary osteoarthritis involving multiple joints; Vitamin B12 deficiency; Dementia with behavioral disturbance (HCC) Start: 10-01-2023 Refill Meagan Older ADMISSIONS CLINICIAN .FIRE SUPPRESSION CAPTAIN Work Phone: Internal Medicine [place] Comment on above: Refill Request Start: 09-02-2023 Refill Meagan Older ADMISSIONS CLINICIAN .FIRE SUPPRESSION CAPTAIN Work Phone: Internal Medicine [place] Comment on above: Refill Request Start: 08-19-2023 End: 08-19-2023 Emergency department patient visit [facility] Facility:[facility] Start: 06-24-2023 End: 06-24-2023 ambulatory Vivian Constantino PTA Work Phone: [facility] Comment on above: Chronic pain of left knee (Primary Dx); Chronic knee instability, left Start: 06-17-2023 End: 06-17-2023 ambulatory Vivian Constantino PTA Work Phone: [facility] Comment on above: Chronic pain of left knee (Primary Dx); Chronic knee instability, left Start: 06-10-2023 End: 06-10-2023 ambulatory Vivina Constantino PTA Work Phone: [facility] Comment on above: Chronic pain of left knee (Primary Dx); Chronic knee instability, left Start: 06-03-2023 End: 06-03-2023 ambulatory Tanna Lemon PT [facility] Comment on above: Chronic pain of left knee (Primary Dx); Chronic knee instability, left Start: 05-27-2023 End: 05-27-2023 ambulatory Tanna Lemon PT [facility] Comment on above: Chronic pain of left knee (Primary Dx); Chronic knee instability, left Start: 05-10-2023 End: 05-10-2023 ambulatory Vivianelizabeth Constantino PTA Work Phone: [facility] Comment on above: Chronic pain of left knee (Primary Dx); Chronic knee instability, left Start: 05-08-2023 Refill Meagan Lambert APRN, .CNP Work Phone: Internal Medicine [place] Comment on above: Refill Request Start: 05-07-2023 [...] 05-07-2023 Subsequent hospital visit by physician [facility] [place] Demetris Work Phone: Radiology Comment on above: Deformity of toe of right foot [M20.61] Start: 05-03-2023 End: 05-03-2023 ambulatory Tanna Orellana PT [facility] Comment on above: Chronic pain of left knee (Primary Dx); Chronic knee instability, left Start: 2023 End: 2023 Patient encounter procedure Kinga Melendrez PA-C Work Phone: [place] [facility] Comment on above: COVID (Primary Dx) Start: 03-07-2023 End: 03-07-2023 ambulatory [facility] Facility:[facility] Start: 03-07-2023 End: 03-07-2023 Patient encounter procedure Rossy Crocker DO Work Phone: Cardiology Comment on above: PVC's (premature tr tricular contractions) (Primary Dx); Essential hypertension; Mixed hyperlipidemia Start: 03-03-2023 Refill Shyanne Del Angel APRN.FIRE SUPPRESSION CAPTAIN Work Phone: Cardiology Comment on above: Refill Request Start: 11-20-2022 End: 11-20-2022 Patient encounter procedure Tejinder Funes MD Work Phone: General Surgery Comment on above: Soft tissue mass (Pr imary Dx) Start: 11-13-2022 End: 11-13-2022 Patient encounter procedure Tejinder Funes MD Work Phone: General Surgery Comment on above: Soft tissue mass; Tenderness Start: 11-05-2022 Telephone encounter Meagan Lambert APRN.FIRE SUPPRESSION CAPTAIN Work Phone: Internal Medicine [place] Comment on above: Results Start: 10-18-2022 ambulatory [facility] Facility:[facility] Start: 10-18-2022 End: 10-18-2022 Subsequent hospital visit by physician [facility] Comment on above: Mass of soft tissue of left upper extremity [M79.89] Start: 10-09-2022 Refill Meagan PhamFIRE SUPPRESSION CAPTAIN Work Phone: Internal Medicine [place] Comment on [...] inclusion cyst; Dysesthesia Start: 03-27-2022 Refill Erica PhamFIRE SUPPRESSION CAPTAIN Work Phone: Internal Medicine [place] Comment on above: Refill Request Start: 12-27-2021 Refill Rossy Crocker DO Work Phone: Cardiology Comment on above: Refill Request Start: 11-21-2021 End: 11-21-2021 [facility] Work Phone: Rad[facility] Comment on above: Projectile vomiting with nausea [R11.12] Start: 11-16-2021 End: 11-16-2021 Patient encounter procedure Faith William PA-C Work Phone: Gastroenterology [place] Comment on above: Projectile vomiting with nausea (Primary Dx) Start: 11-06-2021 Refill Rossy Crocker DO Work Phone: Cardiology Comment on above: Refill Request Start: 10-24-2021 End: 10-24-2021 Subsequent hospital visit by physician [facility] (I-Stat/1.5t) Work Phone: Radiology Comment on above: 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] Start: 10-05-2021 End: 10-05-2021 Patient encounter procedure Vanessa Her MD Work Phone: Internal Medicine [place] Comment on above: Projectile vomiting with nausea (Primary Dx); New onset of headaches; Essential hypertension; Mixed hyperlipidemia; Multiple and bilateral precerebral artery syndromes Start: 09-24-2021 Refill Daniel olivarez MD Work Phone: Neurology Comment on above: Refill Request Start: 09-19-2021 ambulatory Vanessa Fairchild Work Phone: Internal Medicine [place] Start: 07-11-2021 End: 07-12-2021 Patient encounter procedure Joaquin Philip RÍOS.FIRE SUPPRESSION CAPTAIN Work Phone: Neurology Comment on above: 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 Start: 06-11-2021 End: 06-11-2021 Emergency department patient visit [facility] Start: 01-23-2016 Patient encounter procedure VANESSA HER [facility] Procedures Date Procedure Procedure Detail [...] Start: 02-10-2027 Diabetes Screening Diabetes Screenin g [facility] Start: 04-19-2026 Diabetes Screening Diabetes Screenin g [facility] Start: 10-16-2025 Anxiety Screening Anxiety Screening [facility] Start: 10-16-2025 Depression Screening Depression Scre ening [facility] Start: 10-16-2025 Medicare Annual Well ness Visit Medicare Annual Wellness Visit [facility] Start: 10-16-2025 RSV Vaccine (1 - 1-d ose 75+ series) RSV Vaccine (1 - 1-dose 75+ series) [facility] Comment on above: Postponed from 03/25 (Declined at this time) Start: 07-10-2025 DIABETES SCREEN DIABETES SCREEN [facility] Start: 07-10-2025 Diabetes Screening Diabetes Screenin g [facility] Start: 04-19-2025 End: 04-19-2025 Patient encounter procedure 04/19/2025 11:20 AM EST Office Visit Internal Medicine [place] [address] [place] [address] Vanessa Her MD [address] [place] [id number] 6 Month F/U Internal Medicine [place] Comment on above: 6 Month F/U Start: 03-03-2025 End: 03-03-2025 Patient encounter procedure 03/03/2025 11:00 AM EST Office Visit Cardiology [address] [id number] Juana Prabhakar, ADMISSIONS CLINICIAN.FIRE SUPPRESSION CAPTAIN [address] [address] follow up Cardiology Comment on above: follow up Start: 11-23-2024 Influenza vaccination [facility] Start: 10-16-2024 End: 10-16-2024 Patient encounter procedure 10/16/2024 10:00 AM EDT Office Visit Internal Medicine [place] [address] [place] [address] Vanessa Her MD [address] [address] medicare wellness Internal Medicine [place] Comment on above: medicare wellness Start: 10-03-2024 DIABETES SCREEN DIABETES SCREEN [facility] Start: 08-21-2024 End: 08-21-2024 Patient encounter procedure 08/21/2024 9:20 AM EDT Office Visit Internal Medicine [place] [address] [facility] [place] [address] Vanessa Her MD [address] [place] [address] 3 month follow up Internal Medicine [place] Comment on above: 3 month follow up Start: 06-10-2024 End: 06-10-2024 Patient encounter procedure 06/10/2024 11:30 AM EDT Office Visit Cardiology [address] [address] Juana Prabhakar APRN.FIRE SUPPRESSION CAPTAIN [address] [address] 3 month follow up Cardiology Comment on above: 3 month follow up Start: 05-19-2024 End: 08-18-2024 Thyrotropin [Units/volume] in Serum or Plasma [facility] Work Phone: Comment on above: Expected: 05/19/2024 , Expires: 08/18/2024 Start: 05-19-2024 End: 08-18-2024 Thyroxine (T4) free [Mass/volume] in Serum or Plasma [facility] Comment on above: Expected: 05/19/2024 , Expires: 08/18/2024 Start: 05-19-2024 End: 05-19-2024 Patient encounter procedure 05/19/2024 9:00 AM EST Office Visit Internal Medicine [place] [address] [facility] [place], [place] [id number] Vanessa Her MD [address] [facility] [place] [id number] 3 MONTH FOLLOW UP Internal Medicine [place] Comment on above: 3 MONTH FOLLOW UP Start: 04-22-2024 RSV Vaccine (1 - 1-d ose 60+ series) RSV Vaccine (1 - 1-dose 60+ series) [facility] Comment on above: Postponed from 03/25 (Declined at this time) Start: 04-22-2024 RSV Vaccine (1 - 1-d ose 75+ series) RSV Vaccine (1 - 1-dose 75+ series) [facility] Comment on above: Postponed from 03/25 (Declined at this time) Start: 04-09-2024 End: 04-09-2024 Patient encounter procedure 04/09/2024 1:50 PM EST Office Visit Cardiology [address] [address] Persistent atrial fibrillation (HCC) [I48.19] Cardiology Comment on above: Persistent atrial fi brillation (HCC) [I48.19] Start: 04-07-2024 DIABETES SCREEN DIABETES SCREEN [facility] Start: 2024 Advance Directive Discussion Advance Directive Discussion [facility] Start: 03-09-2024 End: 03-09-2024 Patient encounter procedure Cardiology Comment on above: Annual follow up Start: 02-17-2024 End: 02-17-2024 Patient encounter procedure 02/17/2024 2:00 PM EST Office Visit Internal Medicine [place] [address] [place] [address] Vanessa Her MD [address] [place] [address] 3 month follow up geriatrics Internal Medicine [place] Comment on above: 3 month follow up doreen atkins Start: 02-13-2024 End: 02-13-2024 Patient encounter procedure 02/13/2024 11:00 AM EST Office Visit Internal Medicine [place] [address] [facility] [place] [address] Vanessa Her MD [address] [facility] [place] [address] 3 month follow up geriatrics Internal Medicine [place] Comment on above: 3 month follow up doreen [employer] Start: 02-11-2024 End: 02-11-2024 ambulatory 02/11/2024 9:30 AM EST Results Only [place] [facility] [address] [place] [address] [place] [facility] Start: 02-04-2024 End: 05-05-2024 Basic metabolic 2000 panel - Serum or Plasma BASIC METABOLIC PANEL Lab Routine CKD (chronic kidney disease) stage 3, GFR 30-59 ml/min ([facility]) Expected: 02/04/2024, Expires: 05/05/2024 [facility] Work Phone: Comment on above: Expected: 02/04/2024 , Expires: 05/05/2024 Start: 02-04-2024 End: 05-05-2024 Lipid 1996 panel - Serum or Plasma LIPID PANEL BASIC Lab Routine Mixed hyperlipidemia Expected: 02/04/2024, Expires: 05/05/2024 [facility] Comment on above: Expected: 02/04/2024 , Expires: 05/05/2024 Start: 11-24-2023 Covid-19 Vaccine () Covid-19 Vaccine () [facility] Start: 11-24-2023 Influenza vaccination Influenza Vacc ine (#1) [facility] Start: 11-14-2023 BP CONTROLLED (<130/80) BP CONTROLLE D (<130/80) [facility] Start: 11-13-2023 End: 02-12-2024 PROTEIN ELECTROPHORESIS SERUM W/INTERP [facility] Work Phone: Comment on above: Expected: 11/13/2023 , Expires: 02/12/2024 Start: 10-24-2023 End: 01-23-2024 Cobalamin (Vitamin B12) [Mass/volume] in Serum or Plasma [facility] Comment on above: Expected: 10/24/2023 , Expires: 01/23/2024 Start: 10-24-2023 End: 01-23-2024 Thyrotropin [Units/volume] in Serum or Plasma [facility] Work Phone: Comment on above: Expected: 10/24/2023 , Expires: 01/23/2024 Start: 10-24-2023 End: 10-24-2023 Patient encounter procedure 10/24/2023 9:20 AM EDT Office Visit Internal Medicine [place] [address] [place] [address] Vanessa Her MD [address] [place] [address] 6 Month follow up Internal Medicine [place] Comment on above: 6 Month follow up Start: 10-18-2023 ANNUAL PCP TEAM AIRPLANE CABIN ATTENDANT KAI DISEASE VISIT ANNUAL PCP TEAM CHRONIC DISEASE VISIT [facility] Start: 10-18-2023 COVID-19 VACCINE (6 - Pfizer series) COVID-19 VACCINE (6 - Pfizer series) [facility] Comment on above: Postponed from 06/03 (Declined at this time) Start: 07-11-2023 Complete blood count Hemoglobin/Santy tocrit [facility] Start: 07-11-2023 Creatinine measurement Serum Creatin ine [facility] Start: 07-11-2023 HEMOGLOBIN/HEMATOCRIT HEMOGLOBIN/HEM ATOCRIT [facility] Start: 07-11-2023 SERUM CREATININE SERUM CREATININE [facility] Start: 07-10-2023 ANNUAL PCP TEAM AIRPLANE CABIN ATTENDANT KAI DISEASE VISIT ANNUAL PCP TEAM CHRONIC DISEASE VISIT [facility] Start: 07-10-2023 Urine microalbumin profile [facility] Comment on above: Postponed from 03/05 (Declined at this time) Start: 06-10-2023 Covid-19 Vaccine ( season) Covid-19 Vaccine ( season) [facility] Start: 2023 Advance Directive Discussion Advance Directive Discussion [facility] Start: 11-23-2022 Influenza vaccination INFLUENZA (#1) [facility] Start: 10-05-2022 ANNUAL PCP TEAM AIRPLANE CABIN ATTENDANT KAI DISEASE VISIT ANNUAL PCP TEAM CHRONIC DISEASE VISIT [facility] Start: 07-11-2022 BP CONTROLLED (<130/80) BP CONTROLLE D (<130/80) [facility] Start: 06-03-2022 COVID-19 VACCINE (6 - Pfizer series) COVID-19 VACCINE (6 - Pfizer series) [facility] Start: 04-07-2022 HEMOGLOBIN/HEMATOCRIT HEMOGLOBIN/HEM ATOCRIT [facility] Start: 04-07-2022 SERUM CREATININE SERUM CREATININE Cl [facility] Start: 04-06-2022 ANNUAL PCP TEAM AIRPLANE CABIN ATTENDANT KAI DISEASE VISIT ANNUAL PCP TEAM CHRONIC DISEASE VISIT [facility] Start: 2022 ADVANCE DIRECTIVE DISCUSSION ADVANCE DIRECTIVE DISCUSSION [facility] Start: 11-23-2021 Influenza vaccination INFLUENZA (#1) [facility] Start: 11-15-2021 COVID-19 VACCINE (5 - Booster for Pfizer series) COVID-19 VACCINE (5 - Booster for Pfizer series) [facility] Start: 09-19-2021 End: 11-19-2021 Hemoglobin A1c in Blood HGB A1C Lab Routine Medication management Expected: 09/19/2021, Expires: 11/19/2021 [facility] Work Phone: Comment on above: Expected: 09/19/2021 , Expires: 11/19/2021 Start: 09-19-2021 End: 11-19-2021 SCHEDULE LAB TESTING SCHEDULE LAB TESTING Lab Routine Expected: 09/19/2021, Expires: 11/19/2021 [facility] Work Phone: Comment on above: Expected: 09/19/2021 , Expires: 11/19/2021 Start: 05-07-2021 COVID-19 VACCINE (4 - Booster for Pfizer series) COVID-19 VACCINE (4 - Booster for Pfizer series) [facility] Start: 2021 ADVANCE DIRECTIVE DISCUSSION ADVANCE DIRECTIVE DISCUSSION [facility] Start: 2017 RSV Vaccine (1 - 1-d ose 75+ series) RSV Vaccine (1 - 1-dose 75+ series) [facility] Start: 03-05-2017 Urine microalbumin profile [facility] Start: 02-22-2007 Medicare Annual Well ness Visit Medicare Annual Wellness Visit [facility] Start: 2002 RSV Vaccine (1 - 1-d ose 60+ series) RSV Vaccine (1 - 1-dose 60+ series) [facility] Start: 1960 Anxiety Screening Anxiety Screening [facility] Start: 1960 BP CONTROLLED (<130/80) BP CONTROLLE D (<130/80) [facility] Start: 1960 Depression Screening Depression Scre ening [facility] ECG COMPLETE ECG COMPLETE ECG 03/09/2024 11:02 AM EST [facility] End: 03-09-2025 Echocardiography ECHO Cardiology Routine Persistent atrial fibrillation (HCC) PVC's (premature ventricular contractions) Essential hypertension Mixed hyperlipidemia 1 Occurrences starting 03/09/2024 until 03/09/2025 [facility] Work Phone: Comment on above: 1 Occurrences starti ng 03/09/2024 until 03/09/2025 Hemoglobin.gastroint estina l.lower [Presence] in Stool by Immunoassay IMMUNOCHEMICAL FECAL OCCULT BLOOD TEST Lab Routine Anemia, unspecified type Ordered: 11/13/2023 [facility] Comment on above: Ordered: 11/13/2023 End: 11-04-2022 Mri brain brain stem w/o w/contrast material MRI BRAIN WO/W IVCON Radiology Routine Multiple and bilateral precerebral artery syndromes 1 Occurrences starting 10/05/2021 until 11/04/2022 [facility] Work Phone: Comment on above: 1 Occurrences starti ng 10/05/2021 until 11/04/2022 Patient Education ED Vomiting (Adult) [facility] Work Phone: Patient referral [facility] Work Phone: SURGICAL PATHOLOGY SURGICAL PATH OLOGY Lab Routine Skin cyst 07/23/2022 9:21 AM EDT [facility] Work Phone: SURGICAL PATHOLOGY SURGICAL PATH OLOGY Lab Routine Soft tissue mass 11/20/2022 10:29 AM EDT [facility] Work Phone: End: 12-16-2022 Us abdominal real time w/image limited US ABD RT UPPER QUADRANT Radiology Routine Projectile vomiting with nausea 1 Occurrences starting 11/16/2021 until 12/16/2022 [facility] Work Phone: Comment on above: 1 Occurrences starti ng 11/16/2021 until 12/16/2022 US EXTREMITY MASS/FL UID COLLECTION LEFT US EXTREMITY MASS/FLUID COLLECTION LEFT Radiology Routine Mass of soft tissue of left upper extremity 10/18/2022 9:18 AM EDT [facility] Work Phone: XR Foot - right AP a nd Lateral and oblique XR FOOT GENERAL 3V AP/LAT/OBL RIGHT Radiology Routine Deformity of toe of right foot 05/07/2023 10:12 AM EST [facility] Work Phone: [facility] Immunizations Immunization Date Immunization Notes Care Provider Ialna stein 02-09-2023 COVID-19 vaccine, ag e 12+ yr, season (PFIZER-BIONTECH) Shyanne Quigley ADMISSIONS CLINICIAN.FIRE SUPPRESSION CAPTAIN Work Phone: [facility] 02-09-2023 influenza (HD-IIV4) vaccine, age 65+ yr, high dose, quadrivalent, PF (FLUZONE HIGH-DOSE) Shyanne Quigley ADMISSIONS CLINICIAN.FIRE SUPPRESSION CAPTAIN Work Phone: [facility] 02-09-2023 influenza virus vacc ine, unspecified formulation Meagan Older ADMISSIONS CLINICIAN.FIRE SUPPRESSION CAPTAIN Work Phone: [facility] 02-03-2022 COVID-19 booster vaccine, age 12+ yr, bivalent (PFIZER-BIONTECH) Erica Older ADMISSIONS CLINICIAN.FIRE SUPPRESSION CAPTAIN Work Phone: [facility] 02-03-2022 influenza, high dose seasonal, preservative-free Erica Older ADMISSIONS CLINICIAN.FIRE SUPPRESSION CAPTAIN Work Phone: [facility] 01-04-2021 COVID-19 vaccine, ag e 12+ yr (PFIZER-BIONTECH - PURPLE TOP) Meagan Older ADMISSIONS CLINICIAN.FIRE SUPPRESSION CAPTAIN Work Phone: [facility] 01-04-2021 influenza, high dose seasonal, preservative-free Meagan Older ADMISSIONS CLINICIAN.FIRE SUPPRESSION CAPTAIN Work Phone: [facility] 10-21-2020 zoster vaccine recombinant Meagan Older ADMISSIONS CLINICIAN.FIRE SUPPRESSION CAPTAIN Work Phone: [facility] 08-16-2020 zoster vaccine recombinant Meagan Older ADMISSIONS CLINICIAN.FIRE SUPPRESSION CAPTAIN Work Phone: [facility] 06-10-2020 COVID-19 vaccine, ag e 12+ yr (PFIZER-BIONTECH - PURPLE TOP) Meagan Older ADMISSIONS CLINICIAN.FIRE SUPPRESSION CAPTAIN Work Phone: [facility] 05-20-2020 COVID-19 vaccine, ag e 12+ yr (PFIZER-BIONTECH - PURPLE TOP) Meagan Older ADMISSIONS CLINICIAN.FIRE SUPPRESSION CAPTAIN Work Phone: [facility] 12-11-2017 influenza, high dose seasonal, preservative-free Meagan Older ADMISSIONS CLINICIAN.FIRE SUPPRESSION CAPTAIN Work Phone: [facility] Work Phone: 12-30-2015 influenza, high dose seasonal, preservative-free Meagan Older ADMISSIONS CLINICIAN.FIRE SUPPRESSION CAPTAIN Work Phone: [facility] 01-13-2015 influenza, high dose seasonal, preservative-free Meagan Older ADMISSIONS CLINICIAN.FIRE SUPPRESSION CAPTAIN Work Phone: [facility] 07-20-2014 pneumococcal conjuga te vaccine, 13 valent Meagan Older ADMISSIONS CLINICIAN.FIRE SUPPRESSION CAPTAIN Work Phone: [facility] 01-12-2014 influenza, seasonal, injectable Meagan Older ADMISSIONS CLINICIAN.FIRE SUPPRESSION CAPTAIN Work Phone: [facility] 02-26-2012 influenza virus vacc ine, unspecified formulation Meagan Older ADMISSIONS CLINICIAN.FIRE SUPPRESSION CAPTAIN Work Phone: [facility] 02-22-2011 influenza virus vacc ine, unspecified formulation Meagan Older ADMISSIONS CLINICIAN.FIRE SUPPRESSION CAPTAIN Work Phone: [facility] 03-10-2010 influenza virus vacc ine, unspecified formulation Meagan Older ADMISSIONS CLINICIAN.FIRE SUPPRESSION CAPTAIN Work Phone: [facility] 03-22-2009 pneumococcal polysaccharide vaccine, 23 valent Meagan Older ADMISSIONS CLINICIAN.FIRE SUPPRESSION CAPTAIN Work Phone: [facility] Work Phone: 03-05-2007 influenza virus vacc ine, unspecified formulation Meagan Older ADMISSIONS CLINICIAN.FIRE SUPPRESSION CAPTAIN Work Phone: [facility] Work Phone: 03-05-2007 tetanus toxoid, redu anoop diphtheria toxoid, and acellular pertussis vaccine, adsorbed Meagan Older ADMISSIONS CLINICIAN.FIRE SUPPRESSION CAPTAIN Work Phone: [facility] Work Phone: 03-21-2005 influenza virus vacc ine, unspecified formulation Meagan Older ADMISSIONS CLINICIAN.FIRE SUPPRESSION CAPTAIN Work Phone: [facility] 02-15-2003 pneumococcal polysaccharide vaccine, 23 valent Meagan Lambert ADMISSIONS CLINICIAN.[facility] Work Phone: [facility] Work Phone: Payers Date Payer Category Payer Self-pay [id number] 2013 Private Health Insurance HUMANA HUMANA MEDICARE SUPPLEMENT [id number] 2013-Present [phone] [address] [address] [place] [address] Indemnity [id number] 2013 Private Health Insurance [id number] 2013 Private Health Insurance [id number] 2007 Medicare MEDICARE MEDICAR E A AND B [id number] 2007-Present [phone] [address] [address] [place] [address] Medicare [id number] 2007 Medicare [id number] 2007 Medicare [id number] Unknown [id number] Unknown [id number] Social History Date Type Detail Facility Start: 06-11-2021 Tobacco smoking status WAIS Unknown if ever smoked [facility] Work Phone: Start: 1940 Sex Assigned At Female [facility] Start: 03-12-2017 End: 11-13-2023 Tobacco smoking status NHIS Ex-smoker [facility] End: 1998 History of tobacco use Current smoker [facility] Start: 06-06-2021 End: 10-16-2024 Alcohol intake Current drinker of alcohol (finding) [facility] Start: 06-06-2021 End: 10-17-2022 Alcohol intake [facility] Start: 06-26-2020 End: 07-09-2022 History SDOH Alcohol Frequency 3 [facility] Start: 06-26-2020 End: 07-09-2022 History SDOH Alcohol Std Drinks 1 [facility] Start: 03-22-2016 History SDOH Alcohol Comment occasionally - bottle of wine share once monthly (02/2016) [facility] Start: 06-26-2020 End: 07-09-2022 History SDOH Social Connections Phone 2 [facility] Start: 06-26-2020 End: 07-09-2022 History SDOH Physical Activity DPW 0 [facility] Start: 06-26-2020 End: 07-09-2022 History SDOH Financial 5 [facility] Start: 06-26-2020 Education 17 [facility] Start: 05-27-2021 End: 11-16-2021 Exposure to SARS-CoV-2 (event) Not sure [facility] End: 1998 History of tobacco use Cigarette Smoker [facility] Work Phone: Start: 03-12-2017 End: 11-13-2023 Tobacco use and exposure Smokeless tobacco non-user [facility] Work Phone: Start: 07-09-2022 End: 10-17-2022 Social connection and isolation panel [facility] Do you belong to any clubs or organizations such as latter day groups, unions, fraternal or athletic groups, or school groups? No [facility] Are you now , , , , never or living with a partner? [facility] How often to you hav e a drink containing alcohol? Monthly or less [facility] How many standard dr inks containing alcohol do you have on a typical day? 1 or 2 [facility] How often do you hav e 6 or more drinks on 1 occasion? Never [facility] Start: 02-24-2012 How hard is it for you to pay for the very basics like food, housing, medical care, and heating Not hard at all [facility] Do you feel stress - tense, restless, nervous, or anxious, or unable to sleep at night because your mind is troubled all the time - these days [OSQ] Only a little [facility] (I/We) worried wheth er (my/our) food would run out before (I/we) got money to buy more. Never true [facility] Start: 09-11-2018 Gender identity Identifies as female gender (finding) [facility] Start: 09-11-2018 Sexual orientation Heterosexual (finding) [facility] Do you belong to any clubs or organizations such as latter day groups, unions, fraJobzippers or athletic groups, or school groups? Yes [facility] Do you feel stress - tense, restless, nervous, or anxious, or unable to sleep at night because your mind is troubled all the time - these days [OSQ] Rather much [facility] Functional Status Date Assessment Result Facility 07-20-2014 Are you deaf, or do you have serious difficulty hearing No 07/20/2014 11:38 AM Trevon Lester LPN No [facility] 07-20-2014 Are you blind, or do you have serious difficulty seeing, even when wearing glasses No 07/20/2014 11:38 AM Trevon eLster LPN No [facility] 07-20-2014 Do you have serious difficulty walking or climbing stairs No 07/20/2014 11:38 AM Trevon Lester LPN No [facility] 07-20-2014 Do you have difficul ty dressing or bathing No 07/20/2014 11:38 AM Trevon Lester LPN No [facility] 07-20-2014 Because of a physica l, mental, or emotional condition, do you have difficulty doing errands alone such as visiting a physician's office or shopping No 07/20/2014 11:38 AM Trevon Lester LPN No [facility] Mental Status Date Assessment Result Facility 07-20-2014 Because of a physica l, mental, or emotional condition, do you have serious difficulty concentrating, remembering, or making decisions No 07/20/2014 11:38 AM EDT Trevon Dorado LPN No [facility] Clinical Notes 01-23-2016 to 11-27-2024 Maria Esther Sosa, ANGEL - 11/27/2024 1:10 PM EDTTelephone Encounter - Yris Dickson LISW - 10/27/2024 9:51 AM EDTTelephone Encounter - Yris Dickson LISW - 10/27/2024 9:51 AM EDT Note Date & Type Note Facility 11-27-2024 Note HNO ID: [id number] Author: MARIA ESTHER SOSA RN Service: ? [...] Sosa RN November 27, 2024 1:12 PM [facility] 11-27-2024 History of Presen t illness [...] 2024 1:12 PM documented in this encounter [facility] 11-27-2024 Note Patient Outreach (AM BC) GERTRUDE FLORES ([id number]) 1940 F Date Time Provider Department 11/27/24 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 TOPICS ADDRESSED: community resources CLINICAL ASSESSMENT: CBPM SW continues to try and connect Pt with in-home PCP. SW has left VM x3 with [facility] to inquire if [place] is in their territory/if they are accepting new Pts. SW spoke with Pt's spouse, Avila, on this date and provided update. Once SW hears from [facility], SW will communicate next steps to Pt/spouse. SW to follow. INTERVENTIONS/REFERRALS TO BE PROVIDED:Communicate pertinent medical/psychosocial information to Palliative Medicine team PLAN: Will continue to monitor patient/family coping and remain available for psychosocial intervention as patient/family system integrate illness trajectory and its impact on their lives JOSE Palacios [facility] Work Phone: 10-27-2024 Miscellaneous Notes PALLIATIVE MEDICINE SOCIAL WORK PROGRESS NOTE Date of Service: October 27, 2024 Gertrude Flores is being seen for an initial/follow up Palliative Care Social Work visit. TOPICS ADDRESSED: community resources CLINICAL ASSESSMENT: CBPM SW continues to try and connect Pt with in-home PCP. SW has left VM x3 with [facility] to inquire if [place] is in their territory/if they are accepting new Pts. SW spoke with Pt's spouse, Avila, on this date and provided update. Once SW hears from [facility], SW will communicate next steps to Pt/spouse. SW to follow. INTERVENTIONS/REFERRALS TO BE PROVIDED:Communicate pertinent medical/psychosocial information to Palliative Medicine team PLAN: Will continue to monitor patient/family coping and remain available for psychosocial intervention as patient/family system integrate illness trajectory and its impact on their lives JOSE Palacios documented in this encounter [facility] 10-23-2024 Telephone encounter Note PALLIATIVE [...] is currently outside of service network for [facility]. SW reached out to Pranav Noel, Marnie Prabhakar Senior Farm Adviser for [facility] to inquire about alternative resources. With their assistance this SW left VM with both [facility] and [facility] to inquire about services. SW [...] its impact on their lives JOSE Palacios [facility] Work Phone: 10-23-2024 Miscellaneous Notes [...] is currently outside of service network for [facility]. SW reached out to Pranav Noel and Heather Sipple Senior Farm Adviser for [facility] to inquire about alternative resources. With their assistance this SW left VM with both [facility] and [facility] to inquire about services. SW [...] lives JOSE Palacios documented in this encounter [facility] 10-22-2024 Telephone encounter Note Medical Care at home referral was received for Primary Care services. Unfortunately the referral is declined at this time due to geographic location. Thank you for the referral. Patient discharged from Medical Care at Home: Discharge Reason: Other with Patient resides outside of the [facility] service area Discharge Date: 10/22/2024 Please cancel any pending orders-Make My plate [facility], upcoming appointments with [facility] ROSALES Cerna [facility] 10-22-2024 Miscellaneous Notes Medical Care at home referral was received for Primary Care services. Unfortunately the referral is declined at this time due to geographic location. Thank you for the referral. Patient discharged from Medical Care at Home: Discharge Reason: Other with Patient resides outside of the [facility] service area Discharge Date: 10/22/2024 Please cancel any pending orders-Make My plate [facility], upcoming appointments with [facility] MEDICAL CARE AT HOME [facility] REFERRAL Date Referral Received: 10/22/2024 Referral Source: [facility] Physician office Date of : 1940 Age: [age] year old PCP: Vanessa Her MD Visit address from [facility]: [address] [place] [address] Reason for referral: Ongoing Primary Care Name of Physician who gave the order: Dr. Shelbie Cm Primary Insurance Company: Payor: MEDICARE / Plan: MEDICARE A AND B / Product Type: Medicare / Primary Insurance ID Number: [id number] documented in this encounter [facility] 10-22-2024 Telephone encounter Note MEDICAL CARE AT HOME [facility] REFERRAL Date Referral Received: 10/22/2024 Referral Source: Physician office Date of : 1940 Age: [age] year old PCP: Vanessa Her MD Visit address from [facility]: [address] [place] [id number] Reason for referral: Ongoing Primary Care Name of Physician who gave the order: Dr. Shelbie Cm Primary Insurance Company: Payor: MEDICARE / Plan: MEDICARE A AND B / Product Type: Medicare / Primary Insurance ID Number: [id number] [facility] 10-21-2024 Note HNO ID: [id number] Author: SHELIBE CM MD Service: ? Author Type: Physician [...] further discuss community resources. Referral placed to [facility] PCP for in-home primary care. ? [...] 22, 2024 TIME: 1:00 PM PAGER/CONTACT #: [phone] [facility] 10-21-2024 History of Presen t illness [...] Living Walking: Independent. No, does not meet [facility] Definition for Functional Dependency. Eating: Setup or [...] further discuss community resources. Referral placed to [facility] PCP for in-home primary care. ? [...] 22, 2024 TIME: 1:00 PM PAGER/CONTACT #: [phone] documented in this encounter [facility] 10-20-2024 Telephone encounter Note Waiting for palliative care nursing to consult I think it is fine to just be on the levothyroxine as that is the only medication she is taking for the past 2 months. Regards, Vanessa Her MD [facility] 10-20-2024 Miscellaneous Notes Waiting for palliative care nursing to consult I think it is fine to just be on the levothyroxine as that is the only medication she is taking for the past 2 months. Regards, Vanessa Her MD Hello, We called patient to set up shipping on monthly med box. 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 stated he made provider aware of situation and is planning on working with office to simplify medication regimen. We will f/u with patient in 1 month. Nehal Sunshine RPh documented in this encounter [facility] 10-20-2024 Telephone encounter Note Hello, We called patient to set up shipping on monthly med box. 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 stated he made provider aware of situation and is planning on working with office to simplify medication regimen. We will f/u with patient in 1 month. Nehal Sunshine RPh [facility] 10-20-2024 Telephone encounter Note Shanon received message back that [facility] Palliative Care Dept, will be reaching out to patient/spouse to schedule consult with their dept. [facility] 10-20-2024 Miscellaneous Notes Shanon received message back that [facility] Palliative Care Dept, will be reaching out to patient/spouse to schedule consult with their dept. Shanon notes that referral was also sent to [facility] in regards to requesting palliative care services. This Sw also received consult for palliative care services. Sw will check with Home Care and see what their response is to setting up patient care services. documented in this encounter [facility] 10-19-2024 Telephone encounter Note Sw notes that referral was also sent to Home Care in regards to requesting palliative care services. This Sw also received consult for palliative care services. Sw will check with Home Care and see what their response is to setting up patient care services. [facility] 10-16-2024 Instructions Vanessa Her MD [...] contact our office. documented in this encounter [facility] 10-16-2024 Note HNO ID: [id number] Author: VANESSA HER MD Service: ? Author [...] hr tablet pravastatin (PRAVACHOL) 20 mg tablet [facility] Maintenance Medicare Annual Wellness Visit [...] Alzheimer's dementia, unspecif (more content not included)... [facility] 10-16-2024 History of Presen t illness [...] any unintended typographical errors. Recording using ambient ViFlux software for draft documentation of the visit was discussed with the patient/authorized customer operations representative; all questions welcomed and answered. Patient/authorized customer operations representative agreed to proceed Vanessa Her MD documented in this encounter [facility] 09-14-2024 Note HNO ID: [id number] Author: MILANA DIETRICH MA Service: ? Author Type: Penology Teacher Type: Progress Notes Filed: 09/14/2024 09:42 Note [...] orders: Medicare Annual Wellness Visit 10/16/2024 in [facility] with VANESSA HER - medicare wellness 03/03/2025 in [facility] with JUANA PRABHAKAR - follow up Navigation Signature: Milana Dietrich MA September 14, 2024 9:32 AM [facility] 09-14-2024 History of Presen t illness [...] VANESSA HER - medicare wellness 03/03/2025 in [facility] with JUANA PRABHAKAR - follow up Navigation Signature: Milana Dietrich MA September 14, 2024 9:32 AM documented in this encounter [facility] 09-14-2024 Note Patient Outreach (NE TNAV) GERTRUDE FLORES ([id number]) 1940 F Date Time Provider Department 09/14/24 [...] orders: Medicare Annual Wellness Visit 10/16/2024 in [facility] with VANESSA HER - medicare wellness 03/03/2025 in [facility] with JUANA PRABHAKAR - follow up 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 Author [...] excuse any unintended typographical errors. Recording using Blackbay software for draft documentation of the visit was discussed with the patient/authorized customer operations representative; all questions welcomed and answered. Patient/authorized customer operations representative agreed to proceed Vanessa Her MD [facility] 08-21-2024 History of Presen t illness [...] excuse any unintended typographical errors. Recording using Blackbay software for draft documentation of the visit was discussed with the patient/authorized customer operations representative; all questions welcomed and answered. Patient/authorized customer operations representative agreed to proceed Vanessa Her MD documented in this encounter [facility] 08-21-2024 Instructions Vanessa Her MD [...] daily. This prescription has been sent to [facility] and includes a 90-day supply [...] guidance or support. documented in this encounter [facility] 08-11-2024 Note HNO ID: [id number] Author: SERA LOPEZ RN Service: ? Author [...] assisted Gertrude and her to their car. [facility] 06-10-2024 Instructions Juana Prabhakar APRN.CNP - 06/10/2024 11:49 AM EDT Echo shows that the heart is strong >> normal heart pumping is normal. Continue all your same medications Stay hydrated Low salt diet Follow up in 1 year >> or sooner if needed documented in this encounter [facility] 06-10-2024 Note HNO ID: [id number] Author: JUANA PRABHAKAR APRN.BAHMAN Service: ? Author Type: Nurse Practitioner Type: Progress Notes Filed: 06/22/2024 12:55 Note Text: [facility] [place] [facility] Department of Cardiovascular Medicine SECTION [...] prior to the follow up. Juana Prabhakar APRN.[facility] Cardiology Nurse Practitioner Section of [facility] Cardiology [facility] Dept of Cardiovascular Medicine [facility] [place] [address] Office Office June 10, 2024 11:39 AM This note was partially generated using [employer] voice recognition system and may contain errors [...] FOR LVH, MAY BE NORMAL VARIANT ( [place] product ) ABNORMAL ECG Confirmed by MD [...] 87 04/07/2021 105 (more content not included)... [facility] 06-10-2024 History of Presen t illness Narrative Images from the original note were not included. [facility] [place] [facility] Department of Cardiovascular Medicine SECTION [...] prior to the follow up. Juana Prabhakar APRN.[facility] Cardiology Nurse Practitioner Section of Regional Cardiology [facility] [place] [facility] Dept of Cardiovascular Medicine [facility] Heart and Vascular [place] [address] Office Office June 10, 2024 11:39 AM This note was partially generated using [employer] voice recognition system and may contain errors [...] and ROS obtained by others. Juana Prabhakar APRN.FIRE SUPPRESSION CAPTAIN CURRENT MEDICATIONS: Current Outpatient Medications Medication Sig [...] for this visit. documented in this encounter [facility] 05-19-2024 Note HNO ID: [id number] Author: VANESSA HER MD Service: ? Author [...] to nail issues, . 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 , they had a great experience with [...] and discussed today Current Outpatient Medications: Ipratropium Diboll (ATROVENT) 21 mcg (0.03 %) nasal spray famotidine (PEPCID) 40 mg tablet metoprolol succinate ER (TOPROL XL) 50 mg 24 hr tablet pravastatin (PRAVACHOL) 20 mg tablet apixaban (ELIQUIS) 5 mg tab(s) amLODIPine (NORVASC) 2.5 mg tablet Ferrous Gluconate 225 mg (27 mg iron) tab levothyroxine (LEVOXYL) 112 mcg tablet sertraline (ZOLOFT) 50 mg tablet memantine (NAMENDA) 5 mg tablet Mmmuwfshikbrc-Jvozqywb-Jhtdaw (CENTRUM SILVER) Tab Review of Systems CONSTITUTIONAL: [...] CITALOPRAM 10 MG (more content not included)... [facility] 05-19-2024 History of Presen t illness [...] to nail issues, . 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 Please excuse any unintended typographical errors. [place] documented in this encounter [facility] 04-07-2024 Telephone encounter Note Patient has been identified by name and date of : Yes Patient phones for refill(s): Requested Prescriptions Pending Prescriptions Disp Refills Ipratropium Diboll (ATROVENT) 21 mcg (0.03 %) nasal spray 30 mL 2 Sig: Use 2 Sprays in the nose every 12 hours. Date of last office visit in primary care: 02/17/2024 Date of next office visit in primary care: 05/19/2024 Please advise. Thank you. Maryan Johnson LPN. [facility] 04-07-2024 Miscellaneous Notes Patient has been identified by name and date of : Yes Patient phones for refill(s): Requested Prescriptions Pending Prescriptions Disp Refills Ipratropium Diboll (ATROVENT) 21 mcg (0.03 %) nasal spray 30 mL 2 Sig: Use 2 Sprays in the nose every 12 hours. Date of last office visit in primary care: 02/17/2024 Date of next office visit in primary care: 05/19/2024 Please advise. Thank you. Maryan Johnson LPN. documented in this encounter [facility] 03-09-2024 Note HNO ID: [id number] Author: ROSSY CROCKER, DO Service: ? Author Type: Physician Type: Progress Notes Filed: 03/09/2024 12:01 Note Text: [facility] SECTION [facility] CARDIOLOG[facility] OUTPATIENT VISIT DATE March 09, 2024 PRIMARY CARE PHYSICIAN: Vanessa Her [address] [place] [address] HISTORY OF PRESENT ILLNESS: Ms. Flores is [...] repair SALPINGO-OOPHORECTOMY COMPL/ (more content not included)... [facility] 03-09-2024 History of Presen t illness Narrative Images from the original note were not included. [facility] SECTION OF REGIONAL CARDIOLOGY [facility] OUTPATIENT VISIT DATE March 09, 2024 PRIMARY CARE PHYSICIAN: Vanessa Her [address] [place] [address] HISTORY OF PRESENT ILLNESS: Ms. Flores is [...] tablet take 1 tablet every day Ipratropium Diboll (ATROVENT) 21 mcg (0.03 %) nasal spray Use 2 Sprays in the nose every 12 hours. Khkrgxznxdvms-Jrecylyj-Wsrwhm (CENTRUM SILVER) Tab Take 1 tablet by mouth once daily. Rossy Crocker DO, [facility], [facility] Food Sales Clerk, [facility] Food Sales Clerk, [facility] Food Sales Clerk, [facility] Food Sales Clerk, [facility] Food Sales Clerk, [facility] Clinical Communications Tower Climber Profressor of Medicine, [facility] Staff Meat Carver, Walter Hopkins Department of Cardiovascular Medicine/Heart and Vascular [place], [facility] Please note: This note has been produced using speech recognition software and may contain errors related to that system including nilay, punctuation, spelling, words, gender and phrases that may be inappropriate. documented in this encounter [facility] 02-17-2024 Note HNO ID: [id number] Author: VANESSA HER MD Service: ? Author Type: Physician Type: Progress Notes Filed: 02/17/2024 18:23 Note Text: [facility] Initial Consult Gertrude Flores is a 83 year old year old female who comes for Comprehensive Geriatric Assessment. Pt accompanied by: , Sarthak Flores Caregivers involved in care: HPI: Here for follow up of AD. Last visit we had given information on [facility], the has yet to call them, he will call them in the next few days to get more information. Currently not on any cognitive enhancers. B-ADLs: (I=independent,A=assistance,D=de pendent) ?Bathing: I, Dressing: A, Toileting: I, Transferring:I, Continence: I, Feeding: I, (Saini Index): 5 I-ADLs: Ability to use phone: D, Shopping: D, Cooking: D, Housekeeping: D, Laundry: D, Transportation:D, Medications: {D, Handle Finances: D. ([place] scale): 8 ALLERGIES Allergen Reactions Bactrim Ds [...] They have looked into a facility near [place] which is more like a memory unit [...] to us regarding that. Vanessa Her MD [facility] 02-17-2024 History of Presen t illness Narrative [facility] Initial Consult Gertrude [...] Vanessa Her MD documented in this encounter [facility] 02-04-2024 Note Patient Outreach (IN TMMN) GERTRUDE FLORES ([id number]) 1940 F Date Time Provider Department 02/04/24 [...] [E78.2] Order(s):BASIC METABOLIC PANEL [SQBMP] Order #: [id number] FUTURE LIPID PANEL BASIC [SQLIPB] Order #: [id number] FUTURE Prescriptions as of 02/07/2024 - Ferrous [...] take 1 tablet every day - Ipratropium Diboll (ATROVENT) 21 mcg (0.03 %) nasal spray Use 2 Sprays in the nose every 12 hours. 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 Yes Social History: Primary language: Georgian Marital Status: Living situation: Home w/ Spouse Socially engaged? (participates in activities such as clubs, latter day, community center, sports, games, visiting friends/relatives, etc?): NO they stopped doing this for a while Caregiver [place] and Stress Are your feeling overwhelmed? NO [...] , Taking? , Authorizing Provider Erica Noonan APRN.FIRE SUPPRESSION CAPTAIN Medication sertraline (ZOLOFT) 50 mg tablet, Sig Take 1 tablet by mouth once daily., Start Date 10/01/23, End Date , Taking? , Authorizing Provider Erica Noonan APRN.FIRE SUPPRESSION CAPTAIN Medication metoprolol succinate ER (TOPROL XL) 50 mg 24 hr tablet, Sig take 1 tablet every day, Start Date 06/21/23, End Date , Taking? , Authorizing Provider Maegan Lambert APRN.FIRE SUPPRESSION CAPTAIN Medication famotidine (PEPCID) 40 mg tablet, Sig take 1 tablet every day, Start Date 05/08/23, End Date , Taking? , Authorizing Provider Meagan Lambert APRN.FIRE SUPPRESSION CAPTAIN Medication memantine (NAMENDA) 5 mg tablet, Sig Take 1 tablet by mouth two times a day. Please start by taking 5 mgs once a day and increase to taking 5 mgs 2 times a day, Start Date 04/22/23, End Date , Taking? , Authorizing Provider Meagan Lambert APRN.FIRE SUPPRESSION CAPTAIN Medication pravastatin (PRAVACHOL) 20 mg tablet, Sig take 1 tablet every day, Start Date 03/04/23, End Date , Taking? , Authorizing Provider Yamilet Choe APRN.FIRE SUPPRESSION CAPTAIN Medication Ipratropium Diboll (ATROVENT) 21 mcg (0.03 %) nasal spray, Sig Use 2 Sprays in the nose every 12 hours., Start Date 10/09/22, End Date , Taking? 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 He is expecting in a couple years he will not be in the condition to drive. is looking for resources to help him take care of her. Currently very occasionally he has her sister come down from [place] to help. The rest of the time he has to be with her because she is unable to be left alone at home due to 1 episode of wandering and he is doing all the IADLs and all the maintenance and paperwork for both of them. Plan: To get him information for resources especially with [facility], [facility] and any benefits at the [place] can give because he is a . [...] mins with the patient Vanessa Her MD [facility] documented in this encounter [facility] 11-13-2023 Nurse Note MMSE and GDS completed with patient and scores entered into questionnaire. Kinga Gonzalez MA [facility] 11-13-2023 Nurse Note MMSE and GDS completed with patient and scores entered into questionnaire. Kinga Gonzalez MA documented in this encounter [facility] 10-24-2023 Miscellaneous Notes Order placed. Please assist with scheduling for [place] location. Thank you Meagan Lambert APRN.CNP Consult to Geriatric pended, d/t demential and behaviors. Please review and advise. Thank you. Would like to be seen in [address] Gabe Wheat LPN October 24, 2023 10:16 AM documented in this encounter [facility] 10-24-2023 Telephone encounter Note Order placed. Please assist with scheduling for [place] location. Thank you Meagan Lambert APRN.CNP [facility] 10-24-2023 Instructions Vanessa Her MD [...] opens any doors. documented in this encounter [facility] 10-24-2023 Telephone encounter Note Consult to Geriatric pended, d/t demential and behaviors. Please review and advise. Thank you. Would like to be seen in [address] Gabe Wheat LPN October 24, 2023 10:16 AM [facility] 10-24-2023 History of Presen t [...] tablet take 1 tablet every day Ipratropium Diboll (ATROVENT) 21 mcg (0.03 %) nasal spray Use 2 Sprays in the nose every 12 hours. Ckpcodrtfajpf-Dyiicjpm-Apqrfy (CENTRUM SILVER) Tab Take 1 tablet by [...] Vanessa Her MD documented in this encounter [facility] 10-01-2023 Telephone encounter Note Patient [...] Please advise. Thank you. Maryan Johnson LPN. [facility] 10-01-2023 Miscellaneous Notes Patient has [...] Maryan Johnson LPN. documented in this encounter [facility] 09-02-2023 Telephone encounter Note Pharmacy request denied. Patient needs to contact office for refills. Kinga Gonzalez MA [facility] 09-02-2023 Miscellaneous Notes Pharmacy request denied. Patient needs to contact office for refills. Kinga Gonzalez MA documented in this encounter [facility] 06-24-2023 History of Presen t [...] GER Bynum PT documented in this encounter [facility] 06-17-2023 History of Presen t [...] GER Bynum PT documented in this encounter [facility] 06-10-2023 History of Presen t [...] GER Bynum PT documented in this encounter [facility] 06-03-2023 History of Presen t [...] Tanna Orellana PT documented in this encounter [facility] 05-27-2023 History of Presen t [...] 05/03/23 through 07/02/23 Goals updated on 05/27/2023. [place] in home exercise program. (Partially Met)- fair [...] Patient to be seen for Therapeutic exercise (13393), Manual therapy (44969), Self-snf management (07294), Gait Training (21277), Patient/Family/Caregiver Education PLAN FOR NEXT VISIT: May [...] Tanna Orellana PT documented in this encounter [facility] 05-10-2023 History of Presen t [...] GER Bynum PT documented in this encounter [facility] 05-08-2023 Miscellaneous Notes Patient has [...] Radha Ariza LPN. documented in this encounter [facility] 05-07-2023 History of Presen t [...] 1 tablet by mouth once daily. Ipratropium Diboll (ATROVENT) 21 mcg (0.03 %) nasal spray Use 2 Sprays in the nose every 12 hours. levothyroxine (LEVOXYL) 112 mcg tablet Take 1 tablet by mouth once daily. metoprolol succinate ER (TOPROL XL) 50 mg 24 hr tablet Take 1 tablet by mouth once daily. famotidine (PEPCID) 40 mg tablet Take 1 tablet by mouth once daily. Sspsxgvmxcuma-Klbsvsmq-Nbmabz (CENTRUM SILVER) Tab Take 1 tablet by [...] thickness. Bg Castillo DPM Podiatry [address] [facility] [address] Dept: [phone] Dept AMB ROOMING INTAKE FLOWSHEET DATA Pain [...] today for appointment. documented in this encounter [facility] 05-07-2023 History of Presen t [...] PATIENT PRESENTS WITH AN IMPLANTABLE OR ATTACHED BOOTH MANAGER: No RADIOLOGY DEPARTMENT: General X-ray: Exam(s) Completed: Lower Extremity X-Ray(s): Foot, Right and Wt. Bearing PERIPHERAL IV DATA: Not applicable SIGNED BY: RT Brad(R) May 07, 2023 9:56 AM documented in this encounter [facility] 05-03-2023 History of Presen t illness Narrative Program_ID:[id number] Access Code: [email or web address] URL: [email or web address] Date: 05-03-2023 Prepared By: Tanna Orellana Program [...] of Care: created on 05/03/23 through 07/02/23 [place] in home exercise program. Patient will decrease [...] Planned: 8 Planned Treatment Interventions: Therapeutic exercise (78558), Manual therapy (71956), Self-snf management (07826), Gait Training (10026), Patient/Family/Caregiver Education PLAN FOR NEXT VISIT: Assess [...] Tanna Orellana PT documented in this encounter [facility] 2023 History of Presen t [...] Admin: COVID-19 vaccine, age 12+ yr, season ([employer]) 10/17/2022 Postponed until 10/18/2023 by Meagan Lambert APRN.FIRE SUPPRESSION CAPTAIN (Declined at this time) 02/03/2022 Imm Admin: COVID-19 vaccine, age 12+ yr, bivalent ([employer] [place]) 09/20/2021 Imm Admin: COVID-19 original vaccine, age [...] 1 tablet by mouth once daily. Ipratropium Diboll (ATROVENT) 21 mcg (0.03 %) nasal spray [...] taking 5 mgs 2 times a day Bamgkanqmmpqb-Aptrxoeu-Nqxyxb (CENTRUM SILVER) Tab Take 1 tablet by [...] tenderness or frontal sinus tenderness. Mouth/Throat: Lips: [place]. No lesions. Mouth: Mucous membranes are moist. [...] which included preparing to see the patient, ohhy-pn-cdfy patient care, completing clinical documentation, performing a [...] 2023 1:04 PM documented in this encounter [facility] 2023 Instructions Kinga Melendrez PA-C [...] you with PAXLOVID for the treatment of iedp-bp-rpuwozrc coronavirus disease (COVID-19) caused by the SARS-CoV-2 [...] make PAXLOVID available for the treatment of bltv-eh-xdbbpsjn COVID-19 in adults and children 12 years [...] virus. COVID-19 illnesses have ranged from very bniv-wt-qnnzuu, including illness resulting in . While information [...] available under EUA for the treatment of arpu-yk-gbmrpoud COVID-19 in adults and children 12 years [...] of using PAXLOVID to treat children with uthg-lt-weeuptbk COVID-19. What is the most important information [...] o ranolazine o rifampin o rifapentine o Olmitz s Wort (hypericum perforatum) o sildenafil (Revatio [...] the medicines you take, including prescription and fcpm-cmt-utqqzba medicines, vitamins, and herbal supplements. Your healthcare [...] morning or evening, depending on when you shrimp picker your prescription, or as your healthcare provider [...] PAXLOVID is FDA-approved for the treatment of zngt-jz-sjcbfdvr COVID-19 in certain adults; however, there are not sufficient quantities of the approved presentations (i.e., dose packs) of PAXLOVID at this time. This EUA continues to authorize the emergency use of PAXLOVID for the approved patient population to ensure continued access in order to meet the public health need. VEKLURY (remdesivir) is FDA-approved for the treatment of rnbx-wl-fvgxudbo COVID-19 in certain adults and children. Talk with your healthcare provider to see if VEKLURY is appropriate for you. For information on the emergency use of other medicines that are authorized by FDA to treat people with COVID-19, please go to https://www.fda.gov/emergency-pr daicfsarik-wuw-nufhqjql/armando-maru hernandezu-afcetiqvmr-fsk-policy-framewor k/zndadsdlp-hqh-gzazfqkidrjyi. Your healthcare provider may talk with you [...] examples of PAXLOVID Dose Packs) to FDA [employer] at www.fda.gov/medwatch or call 3-241-WPP-4989 or you can report side effects to [employer]. at the contact information provided below. How [...] PAXLOVID may also be found at https://www.fda.gov/emergency-pr sovnwunnyd-qtg-wenlcrcu/armando-maru e-jkaqczixpf-pbp-policy-framewor k/kfvadpgmqi-fswdva-qlduhrywf. How can I learn more about COVID-19? Ask your healthcare provider. Visit https://www.cdc.gov/COVID19. Contact your local or state public health department. What is an Emergency Use Authorization (EUA)? The [place] FDA has made PAXLOVID available under an emergency access mechanism called an Emergency Use Authorization (EUA). The EUA is supported by a [place] of Health and Human Services ([facility]) declaration that circumstances exist to justify [...] call the telephone number provided below. Website: [employer] Telephone number: (1-877-c19-pack) Distributed by [employer] [place] [address] [id number] Revised: 07/2022 documented in this encounter [facility] 03-07-2023 Note HNO ID: [id number] Author: Rossy Crocker, DO Service: ? Author Type: Physician Type: Progress Notes Filed: 03/07/2023 2:03 PM Note Text: [facility] SECTION [facility] OUTPATIENT VISIT DATE March 07, 2023 PRIMARY CARE PHYSICIAN: Vanessa Her [address] [place] [address] HISTORY OF PRESENT ILLNESS: Ms. Flores is [...] Cancer No Fa (more content not included)... [facility] 03-07-2023 History of Presen t illness Narrative Images from the original note were not included. [facility] VASCULAR INSTITUTE SECTION OF [facility]AL CARDIOLOGY [facility] OUTPATIENT VISIT DATE March 07, 2023 PRIMARY CARE PHYSICIAN: Vanessa Her [address] [place] [id number] HISTORY OF PRESENT ILLNESS: Ms. Flores is [...] 1 tablet by mouth once daily. Ipratropium Diboll (ATROVENT) 21 mcg (0.03 %) nasal spray [...] taking 5 mgs 2 times a day Dgiusunukykrg-Fxoyvukn-Ivkmlu (CENTRUM SILVER) Tab Take 1 tablet by mouth once daily. donepezil (ARICEPT) 10 mg disintegrating tablet Take 1 tablet by mouth once daily. (Patient not taking: Reported on 03/07/2023) ECG NSR Rossy Crocker DO, FACC, FACOI Food Sales Clerk, [facility] Food Sales Clerk, [facility] Food Sales Clerk, [facility] Food Sales Clerk, [facility] Food Sales Clerk, [facility] Clinical Communications Tower Climber Profressor of Medicine, [facility] Staff Meat Carver, Walter Tomisich Department of Cardiovascular Medicine/Heart and Vascular [place], [facility] Please note: This note has been produced using speech recognition software and may contain errors related to that system including nilay, punctuation, spelling, words, gender and phrases that may be inappropriate. documented in this encounter [facility] 03-04-2023 Miscellaneous Notes Please call Gertrude to schedule an updated cardiology appointment. IONA 12/12/20 Irish Macias scheduled documented in this encounter [facility] 11-20-2022 Instructions Lacie Madrigal LPN [...] feel free to call our office at [phone] and ask to be transferred to General Surgery. Thank you for choosing [facility] - General Surgery. documented in this encounter [facility] 11-20-2022 History of Presen t illness Narrative Preoperative diagnosis: 2 cm subcutaneous lesion to left arm Postoperative diagnosis: The same Procedure: Excision of a 2 cm subcutaneous lesion the left arm Surgeon: [place] Procedure: Left arm was sterilely prepped and [...] the procedure well. documented in this encounter [facility] 11-20-2022 Nurse Note UNIVERSAL PROTOCOL [...] Lacie Madrigal LPN documented in this encounter [facility] 11-13-2022 History of Presen t illness Narrative HISTORY AND PHYSICAL Gertrude Flores 1940 REFERRING PHYSICIAN: Meagan Lambert APRN.FIRE SUPPRESSION CAPTAIN CHIEF COMPLAINT: Consult (Soft tissue mass Left [...] 1 tablet by mouth once daily. Ipratropium Diboll (ATROVENT) 21 mcg (0.03 %) nasal spray [...] taking 5 mgs 2 times a day Adfbxmrlbxmvp-Fdvybkoc-Izuqkb (CENTRUM SILVER) Tab Take 1 tablet by [...] entered by the nurse and reviewed by de Nursing Notes: Elvie Majano 11/13/2022 1:40 PM [...] Funes III, MD documented in this encounter [facility] 11-13-2022 Nurse Note REVIEW OF [...] Elvie Majano MA documented in this encounter [facility] 11-05-2022 Miscellaneous Notes Called and [...] Meagan Lambert APRN.BAHMAN documented in this encounter [facility] 10-18-2022 Note HNO ID: [id number] Author: Dorota Norris RT(R) Service: ? Author [...] RDMS, TONIO October 18, 2022 9:13 AM [facility] 10-18-2022 History of Presen t illness [...] 2022 9:13 AM documented in this encounter [facility] 10-09-2022 Miscellaneous Notes Patient has been identified by name and date of : No Patient phones for refill(s): Requested Prescriptions Pending Prescriptions Disp Refills Ipratropium Diboll (ATROVENT) 21 mcg (0.03 %) nasal spray [...] Radha Ferreira LPN documented in this encounter [facility] 10-08-2022 Miscellaneous Notes Called and [...] IONA 12/12/20 [place] documented in this encounter [facility] 08-01-2022 Miscellaneous Notes Told patient's path reports. Patient is doing well, he states can't even tell surgery was done there. Patient to follow up as per needed. documented in this encounter [facility] 07-23-2022 Instructions Lacie Madrigal LPN [...] feel free to call our office at [phone] and ask to be transferred to General Surgery. Thank you for choosing [facility] - General Surgery. documented in this encounter [facility] 07-23-2022 History of Presen t illness Narrative Here for skin cyst removal of back at bra line. Procedure: excision of skin cyst of posterior mid back ([id number]) Preoperative diagnosis: skin cyst of mid posterior [...] Patient acknowledges above. documented in this encounter [facility] 07-23-2022 Nurse Note UNIVERSAL PROTOCOL [...] Lacie Madrigal LPN documented in this encounter [facility] 07-12-2022 Miscellaneous Notes See recent result telephone encounter. TSH low so dose decreased to 1 tablet daily. Script updated and sent to pharmacy. Thank you Meagan Lambert APRN.FIRE SUPPRESSION CAPTAIN This is because of her dosage of [...] before completing appeal. documented in this encounter [facility] 07-10-2022 Nurse Note REVIEW OF [...] Lacie Madrigal LPN documented in this encounter [facility] 04-18-2023 History of Presen t [...] 5 mgs 2 times a day Ipratropium Diboll (ATROVENT) 21 mcg (0.03 %) nasal spray Use 2 Sprays in the nose every 12 hours. pravastatin (PRAVACHOL) 20 mg tablet Take 1 tablet by mouth once daily. Pmzaqipzmjnxu-Aosfubya-Xstfgr (CENTRUM SILVER) Tab Take 1 tablet by [...] entered by the nurse and reviewed by de Nursing Notes: Lacie Madrigal LPN 07/10/2022 9:09 [...] Oneyda Ramos MD documented in this encounter [facility] 03-27-2022 Miscellaneous Notes IONA: 10/05/2021 [...] Dc [place] Ma documented in this encounter [facility] 12-27-2021 Miscellaneous Notes IONA: 12/12/20 [place] NOV:None scheduled documented in this encounter [facility] 12-27-2021 Miscellaneous Notes Patient has been identified by name and date of : Yes Patient phones for refill(s): Requested Prescriptions Pending Prescriptions Disp Refills Ipratropium Diboll (ATROVENT) 21 mcg (0.03 %) nasal spray 30 mL 2 Sig: Use 2 Sprays in the nose every 12 hours. Date of last office visit in primary care: 10/05/21 Last 2 Encounter Wt Readings: Date: Wt: 11/16/2021 88 kg (194 lb) 10/05/2021 89.8 kg (198 lb) Previous labs/tests for medication: Not applicable Please advise. Thank you. Radha Ferreira LPN documented in this encounter [facility] 11-21-2021 History of Presen t [...] 2021 10:30 AM documented in this encounter [facility] 11-16-2021 History of Presen t illness Narrative CHIEF COMPLAINT: Patient presents with: Nausea & Vomiting This consult was requested by Vanessa Her MD for an opinion regarding nausea, vomiting. My final recommendations will be communicated to the requesting health care provider by way of the shared medical record for internal providers or letter via the [employer] for external providers. HPI: Gertrude Flores is a 81 year old female who presents for Nausea & Vomiting. PMHx of hx colon polyps, GERD, HTN, CKD stage three, dementia tells me that back in May, patient woke up one morning and didn't feel well at all. She proceeded to vomit and vomit. [place] very weak, ambulance was called and went [...] Abs Lymph 1.00 - 4.00 k/uL 1.40 [place]% % 8.9 Abs [place] <0.87 k/uL 0.50 Eosin% % 3.6 Abs [...] Take on empty stomach. For thyroid. Ipratropium Diboll (ATROVENT) 21 mcg (0.03 %) nasal spray Use 2 Sprays in the nose every 12 hours. memantine (NAMENDA) 5 mg tablet Take 1 tablet by mouth twice daily. Please start by taking 5 mgs once a day and increase to taking 5 mgs 2 times a day pravastatin (PRAVACHOL) 20 mg tablet Take 1 tablet by mouth once daily. Hmtcgcpdbizyf-Ggbxhrqi-Hfsydo (CENTRUM SILVER) Tab Take 1 tablet by [...] with more than 50% of the total huac-wg-aiqa time of the visit in counseling / coordination of care. I have confirmed and edited as necessary, the PFSH and ROS obtained by others. Faith William PA-C November 16, 2021 11:00 AM documented in this encounter [facility] 10-24-2021 History of Presen t [...] TIME: 10:57 AM documented in this encounter [facility] 10-05-2021 History of Presen t [...] tablet levothyroxine (LEVOXYL) 112 mcg tablet Ipratropium Diboll (ATROVENT) 21 mcg (0.03 %) nasal spray memantine (NAMENDA) 5 mg tablet pravastatin (PRAVACHOL) 20 mg tablet metoprolol succinate ER (TOPROL XL) 50 mg 24 hr tablet Vtihxvmhpuoer-Ijcxngdh-Kxmuih (CENTRUM SILVER) Tab sertraline (ZOLOFT) 25 mg [...] Vanessa Her MD documented in this encounter [facility] 09-26-2021 Miscellaneous Notes The following approved medication requests have been transmitted electronically. Signed Prescriptions Disp Refills donepezil (ARICEPT) 10 mg disintegrating tablet 90 tablet 1 Sig: Take 1 tablet by mouth once daily. BLANCA: No Authorizing Provider: JOAQUIN PALACIOS Ordering User: GREGORY HERNANDEZ PA-C documented in this encounter [facility] 07-11-2021 Instructions Joaquin Palacios APRN.FIRE SUPPRESSION CAPTAIN - 07/11/2021 2:40 PM EDT Thank you [...] been sent to your pharmacy. 2. Call [phone] to schedule Speech Therapy 3. Keep track of any questions you have that you would like to discuss next time. You next visit should be scheduled with me in 2 months. You can schedule this before you leave today or by calling [phone]. If you need to reach me for any reason prior to your next visit, please contact me through [email or web address] Textbook Time or call [phone]. Ways to keep your brain healthy: Follow [...] resources are: The Alzheimer's Association (web site: alz.org/[place]) available 24 hours a day, 7 days per week. Contact: Local: ; Toll free: [phone] [facility] (web site: Caregiver.org) ENIO Joseph-- a secure online solution for quality information, support, and resources for family caregivers. Contact: Toll-free number: [phone] Alzheimers.gov - Find Alzheimer disease and related dementias information, resources, research and more. CAREGIVER RELIEF PROGRAM The [facility] [employer] has a program aimed at [...] requirements, please call the Alziemr's Association at [phone] or e mail: . 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 Katelyn REARDON [facility]: Date: Provider: ALEXYS MOCA Date: 06/06/202108/21 LV FUNCTION: Date: 06/06/2021 Independent with ADLs, requires assisstance with IADLs finances and meds and no longer drives. CURRENT TREATMENT: Aricept 10 mg every day Namenda 5 mg BID (CKD) Patient Accompanied by: IDENTIFYING INFORMATION Gertrude Flores is a 81 year old, White, female who presents to [facility] for a report visit. Gertrude Flores is being followed for work up for memory loss. She is here today for a report visit following her MRI. Gertrude Flores has a past medical history significant for previous dx of dementia, B12 deficiency, diverticulitis, HTN, CKD, GERD, GIB in 2001 and hypothyroidism. SUBJECTIVE: Patient's last visit with [facility] was 06/06/[address] Zepeda for initial [facility] assessment. Reported around 6 years of [...] full medication list reviewed by Joaquin Palacios APRN.FIRE SUPPRESSION CAPTAIN DIAGNOSTIC RESULTS: MOST RECENT MRI: Date: 07/11/2021 [...] which included preparing to see the patient, thjg-gl-mcgf patient care, performing a medically appropriate examination, completing clinical documentation, and on counseling/ educating the patient and the family. Dr. Zepeda was present for a portion of this visit and is in agreement with the plan stated above. He reviewed the MRI images. Joaquin Palacios MSN, ADMISSIONS CLINICIAN, JAPANESE TUTOR-C Family Nurse Practitioner [facility] CC: 1. Vanessa Her MD, (fax) [phone] documented in this encounter [facility] 07-11-2021 Nurse Note Gertrude Flores [...] BMI 34.88 kg/m documented in this encounter [facility] 01-23-2016 History of Past i [...] of this encounter (statuses as of 06/29/2021) [facility] History of Past illness Narrative* [...] of this encounter (statuses as of 06/29/2021) [facility] Narrative* [...] of this encounter (statuses as of 06/29/2021) [facility] Narrative* [...] of this encounter (statuses as of 07/12/2021) [facility] Narrative* [...] of this encounter (statuses as of 09/22/2021) [facility] Narrative* [...] of this encounter (statuses as of 09/26/2021) [facility] Narrative* [...] of this encounter (statuses as of 10/05/2021) [facility] Narrative* [...] of this encounter (statuses as of 10/25/2021) [facility] Narrative* [...] of this encounter (statuses as of 11/06/2021) [facility] Narrative* [...] of this encounter (statuses as of 11/16/2021) [facility] Narrative* [...] of this encounter (statuses as of 11/22/2021) [facility] Narrative* [...] of this encounter (statuses as of 12/27/2021) [facility] Narrative* [...] of this encounter (statuses as of 12/28/2021) [facility] Narrative* [...] of this encounter (statuses as of 03/29/2022) [facility] Narrative* [...] of this encounter (statuses as of 07/12/2022) [facility] Narrative* [...] of this encounter (statuses as of 07/13/2022) [facility] Narrative* [...] of this encounter (statuses as of 07/25/2022) [facility] Narrative* [...] of this encounter (statuses as of 08/02/2022) [facility] Narrative* [...] of this encounter (statuses as of 10/08/2022) [facility] Narrative* [...] of this encounter (statuses as of 10/10/2022) [facility] Narrative* [...] of this encounter (statuses as of 10/19/2022) [facility] Narrative* [...] of this encounter (statuses as of 11/06/2022) [facility] Narrative* [...] of this encounter (statuses as of 11/14/2022) [facility] Narrative* [...] of this encounter (statuses as of 11/21/2022) [facility] Narrative* [...] of this encounter (statuses as of 03/05/2023) [facility] N[facility]ative* [...] of this encounter (statuses as of 03/08/2023) [facility] Narrative* [...] of this encounter (statuses as of 2023) [facility] Narrative* [...] of this encounter (statuses as of 05/03/2023) [facility] N[facility]ative* [...] of this encounter (statuses as of 05/07/2023) [facility] Narrative* [...] of this encounter (statuses as of 05/08/2023) [facility] Narrative* [...] of this encounter (statuses as of 05/08/2023) [facility] Narrative* [...] of this encounter (statuses as of 05/10/2023) [facility] Narrative* [...] of this encounter (statuses as of 05/27/2023) [facility] Narrative* [...] of this encounter (statuses as of 06/03/2023) [facility] Narrative* [...] of this encounter (statuses as of 06/11/2023) [facility] Narrative* [...] of this encounter (statuses as of 06/17/2023) [facility] Narrative* [...] of this encounter (statuses as of 06/25/2023) [facility] [place] noteNo assessment information availableWUniversity Hospitals [facility]aug[facility] Work Phone: Evaluation note* Diagnosis Acquired hypothyroidism Unspecified hypothyroidism [facility] [place] [facility]* Diagnosis Gastroesophageal reflux disease without esophagitis Esophageal reflux [facility] [place] [facility]* 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 Memory changes Memory loss [facility] in [facility] [place] [facility]* Diagnosis Medication management Encounter for long-term (current) use of other medications [facility] [place] [facility]* Diagnosis Dementia without behavioral disturbance, unspecified dementia type (HCC) Cognitive communication deficit [facility] [place] [facility]* Diagnosis Projectile vomiting with nausea- Primary New onset of headaches Headache Essential hypertension Unspecified essential hypertension Mixed hyperlipidemia 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 [facility] [place] [facility]* 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 [facility] Diagnosis Essential hypertension Unspecified essential hypertension [facility] [place] [facility]* Diagnosis Projectile vomiting with nausea- Primary [facility] [place] [facility]* Diagnosis Projectile vomiting with nausea [facility] [place] [facility]* Diagnosis Mixed hyperlipidemia [facility] [place] [facility]* Diagnosis Epidermal inclusion cyst Sebaceous cyst Dysesthesia Disturbance of skin sensation [facility] [place] [facility]* Diagnosis Skin cyst- Primary Sebaceous cyst Dysesthesia Disturbance of skin sensation [facility] [place] [facility]* Diagnosis Mixed hyperlipidemia [facility] [place] [facility]* Diagnosis Mass of soft tissue of left upper extremity [facility] [place] [facility]* Diagnosis Soft tissue mass- Primary Disorders of soft tissue, unspecified Tenderness Other general symptoms [facility] [place] [facility]* Diagnosis Soft tissue mass Disorders of soft tissue, unspecified Tenderness Other general symptoms [facility] Diagnosis Soft tissue mass- Primary Disorders of soft tissue, unspecified [facility] [place] [facility]* Diagnosis Mixed hyperlipidemia [facility] [place] [facility]* Diagnosis PVC's (premature ventricular contractions)- Primary Other premature beats Essential hypertension Unspecified essential hypertension Mixed hyperlipidemia [facility] [place] [facility] Diagnosis COVID- Primary [facility] [place] [facility]* Diagnosis Chronic pain of left knee- Primary Pain in joint, lower leg Chronic knee instability, left [facility] [place] [facility]* Diagnosis Acquired hallux limitus of right foot- Primary Deformity of toe of right foot Pain of toe of right foot Pain in limb Onychomycosis Dermatophytosis of nail Pain in toe of left foot Pain in limb Pain in toe of right foot Pain in limb Callus Corns and callosities [facility] [place] [facility]* Diagnosis Deformity of toe of right foot [facility] [place] [facility]* Diagnosis Gastroesophageal reflux disease without esophagitis Esophageal reflux [facility] [place] [facility]* Diagnosis Chronic pain of left knee- Primary Pain in joint, lower leg Chronic knee instability, left [facility] [place] [facility] Diagnosis Chronic pain of left knee- Primary Pain in joint, lower leg Chronic knee instability, left [facility] [place] [facility]* Diagnosis Chronic pain of left knee- Primary Pain in joint, lower leg Chronic knee instability, left [facility] [place] [facility]* Diagnosis Chronic pain of left knee- Primary Pain in joint, lower leg Chronic knee instability, left [facility] [place] [facility]* Diagnosis Chronic pain of left knee- Primary Pain in joint, lower leg Chronic knee instability, left [facility] Diagnosis Acquired hypothyroidism Unspecified hypothyroidism [facility] [place] [facility]* Diagnosis Acquired hypothyroidism Unspecified hypothyroidism [facility] [place] [facility]* Diagnosis Alzheimer's disease (HCC)- Primary Alzheimer's disease Weight loss Loss of weight Acquired hypothyroidism Unspecified hypothyroidism Essential hypertension Unspecified essential hypertension Primary osteoarthritis involving multiple joints Vitamin B12 deficiency Other B-complex deficiencies Dementia with behavioral disturbance (HCC) Dementia, unspecified, with behavioral disturbance [facility] [place] [facility]* Diagnosis B12 deficiency- Primary Other B-complex deficiencies Memory loss [place] (hard of hearing), unspecified laterality Balance problem Other symptoms involving nervous and musculoskeletal systems Gastroesophageal reflux disease without esophagitis Esophageal reflux Memory loss B12 deficiency Other B-complex deficiencies B12 deficiency- Primary Other B-complex deficiencies Dementia without behavioral disturbance, unspecified dementia type Memory loss Alzheimer's disease (HCC)- Primary Alzheimer's disease Anemia, unspecified type [facility] [place] [facility] Diagnosis B12 deficiency- Primary Other B-complex deficiencies Memory loss [place] (hard of hearing), unspecified laterality Balance problem Other symptoms involving nervous and musculoskeletal systems Gastroesophageal reflux disease without esophagitis Esophageal reflux Memory loss B12 deficiency Other B-complex deficiencies B12 deficiency- Primary Other B-complex deficiencies Dementia without behavioral disturbance, unspecified dementia type Memory loss Alzheimer's disease (HCC)- Primary Alzheimer's disease Anemia, unspecified type [facility] [place] [facility] Diagnosis B12 deficiency- Primary Other B-complex deficiencies Memory loss [place] (hard of hearing), unspecified laterality Balance problem [...] (moderate) Mixed hyperlipidemia [facility] [place] [facility]* Diagnosis B12 deficiency- Primary Other B-complex deficiencies Memory loss [place] (hard of hearing), unspecified laterality Balance problem [...] onset (HCC)- Primary [facility] [place] [facility]* Diagnosis B12 deficiency- Primary Other B-complex deficiencies Memory loss [place] (hard of hearing), unspecified laterality Balance problem [...] hypertension Mixed hyperlipidemia [facility] Diagnosis B12 deficiency- Primary Other B-complex deficiencies Memory loss [place] (hard of hearing), unspecified laterality Balance problem [...] within the family [facility] Diagnosis B12 deficiency- Primary Other B-complex deficiencies Memory loss [place] (hard of hearing), unspecified laterality Balance problem [...] hypothyroidism Unspecified hypothyroidism [facility] Diagnosis B12 deficiency- Primary Other B-complex deficiencies Memory loss [place] (hard of hearing), unspecified laterality Balance problem Other symptoms involving nervous and musculoskeletal systems Gastroesophageal reflux disease without esophagitis Esophageal reflux Memory loss B12 deficiency Other B-complex deficiencies B12 deficiency- Primary Other B-complex deficiencies Dementia without behavioral disturbance, unspecified dementia type Memory loss Alzheimer's disease (HCC) Alzheimer's disease [facility] B12 deficiency- Primary Other B-complex deficiencies Memory loss [place] (hard of hearing), unspecified laterality Balance problem [...] Other premature beats [facility] Diagnosis B12 deficiency- Primary Other B-complex deficiencies Memory loss [place] (hard of hearing), unspecified laterality Balance problem [...] hypothyroidism Unspecified hypothyroidism [facility] [place] [facility] Diagnosis B12 deficiency- Primary Other B-complex deficiencies Memory loss LA JOLLA (hard of hearing), unspecified laterality Balance problem [...] and behavioral disorders documented in this encounter [facility] note* Diagnosis B12 deficiency- Primary Other B-complex deficiencies Memory loss LA JOLLA (hard of hearing), unspecified laterality Balance problem Other symptoms involving nervous and musculoskeletal systems Gastroesophageal reflux disease without esophagitis Esophageal reflux Memory loss B12 deficiency Other B-complex deficiencies B12 deficiency- Primary Other B-complex deficiencies Dementia without behavioral disturbance, unspecified dementia type Memory loss Palliative care by specialist- Primary 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 They may need adjustment of your thyroid medications. That can be done as an outpatient.[facility] Work Phone: Reason for referral (narrative)* Diagnostic Procedure Only (Routine) - Authorized Specialty Diagnoses / Procedures Referred By Suzanne faulkner Referred To Contact US IMAGING Diagnoses Projectile vomiting with nausea Procedures US ABD RT UPPER QUADRANT US ABDOMINAL REAL TIME W/IMAGE LIMITED Faith William PA-C [address] [facility] [place] [address] Us Imaging Referral ID Status Reason Start Date Expiration Date Visits Requested Visits Authorized [id number] Authorized Auto-Generat ed Referral 11/16/2021 12/16/2022 1 1 [facility] for referral (narrative)* Diagnostic Procedure Only (Routine) - Closed Specialty Diagnoses / Procedures Referred By Darlineac t Referred To Contact US IMAGING Diagnoses Projectile vomiting with nausea Procedures US ABD RT UPPER QUADRANT US ABDOMINAL REAL TIME W/IMAGE LIMITED Faith William PA-C [address] [place] [address] Us Imaging Referral ID Status Reason Start Date Expiration Date V isits Requested Visits Authorized [id number] Closed Auto-Generate d Referral 11/16/2021 12/16/2022 1 1 [facility] for referral (narrative)* Outpatient Procedure (Routine) - Authorized Specialty Diagnoses / Procedures Referred By Contac t Referred To [facility] Diagnoses Persistent atrial fibrillation (HCC) PVC's (premature ventricular contractions) Essential hypertension Mixed hyperlipidemia Procedures ECHO ECHO TTHRC R-T 2D W/WOM-MODE COMPL SPEC&COLR Rossy Ordonez DO [address] [place] [address] [facility] [place] [address] [place] [id number] Referral ID Status Reason Start Date Expiration Date Visits Requested Visits Authorized [id number] Authorized Auto-Generat ed Referral 4 03/09/2025 1 1 [facility] for visit Narrative* Diagnostic Procedure Only (Routine) - Closed Specialty Diagnoses / Procedures Referred By Contac t Referred To Contact US IMAGING Diagnoses Mass of soft tissue of left upper extremity Procedures US EXTREMITY MASS/FLUID COLLECTION LEFT Older, Meagan, ADMISSIONS CLINICIAN.[employer] CAPTAIN [address] [place] [address] Us Imaging Referral ID Status Reason Start Date Expiration Date V isits Requested Visits Authorized [id number] Closed Auto-Generate d Referral 10/17/2022 11/16/2023 1 1 [facility] Diagnostic Procedure Only (Routine) - Closed Specialty Diagnoses / Procedures Referred By Suzanne t Referred To Contact XR IMAGING Diagnoses Deformity of toe of right foot Procedures XR FOOT GENERAL 3V AP/LAT/OBL RIGHT RADEX FOOT COMPLETE MINIMUM 3 VIEWS [address] [place] [address] [place] [address] Referral ID Status Reason Start Date Expiration Date V isits Requested Visits Authorized [id number] Closed Auto-Generate d Referral 04/25/2023 05/24/2024 1 1 [facility] Chief Complaint and Reason for Visit Chief Complaint n/v Advance Directives No Advanced Directives Records Found Advance Directive Response Recorded Date/ Time Living Will Yes June 11, 2021 12:23pm Power of Test Analyst Yes June 11 12:23pm Documents on File Type Date Recorded Patient 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 Advance Directive(s) 01/08/2017 12:42 PM Advance Directive(s) 03/11/2015 1:09 PM Documents on File Type Date Recorded Patient 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 Advance Directive(s) 01/08/2017 12:42 PM Advance Directive(s) 03/11/2015 1:09 PM Documents on File Type Date Recorded Patient 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 anation Advance Directive(s) 03/11/2015 1:09 PM Documents on File Type Date Recorded Patient 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 anation Advance Directive(s) 03/11/2015 1:09 PM [...] HIGH MDM 60-74 MINUTES Vanessa Her MD [address] [place] [address] Referral ID Status Reason Start Date Expiration Date Visits Requested Visits Authorized [id number] Authorized PCP Requested Referral 10/05/2021 10/05/2022 1 1 Specialty Diagnoses / Procedures Referred By Suzanne t Referred To Contact MR IMAGING Diagnoses Multiple and bilateral precerebral artery syndromes Procedures MRI BRAIN WO/W IVCON MRI BRAIN BRAIN STEM W/O W/CONTRAST MATERIAL Vanessa Her MD [address] [place] [address] Mr Imaging Referral ID Status Reason Start Date Expiration Date Visits Requested Visits Authorized [id number] Authorized Auto-Generat ed Referral 10/05/2021 11/04/2022 1 1 Referral ID Status Reason Start Date Expiration Date V isits Requested Visits Authorized [id number] Closed Auto-Generate d Referral 10/05/2021 11/04/2022 1 1 Specialty Diagnoses / Procedures Referred By Contac t Referred To Contact General Surgery Diagnoses Soft tissue mass Tenderness Procedures CONSULT TO GENERAL SURGERY OFFICE/OUTPATIENT NEW HIGH MDM 60-74 MINUTES Meagan Lambert APRN.[employer] [address] [place] [address] Referral ID Status Reason Start Date Expiration Date Visits Requested Visits Authorized [id number] Authorized PCP Requested Referral 11/05/2022 11/05/2023 1 1 Specialty Diagnoses / Procedures Referred By Contac t Referred To Contact Diagnoses Alzheimer's disease (HCC) Vanessa Her MD [address] [place] [address] Referral ID Status Reason Start Date Expiration Date Visits Re quested Visits Authorized [id number] Closed 1 1 Specialty Diagnoses / Procedures Referred By Contac t Referred To Contact Gerontology Diagnoses Alzheimer's disease (HCC) Procedures CONSULT TO GERIATRICS OFFICE/OUTPATIENT NEW [facility] MDM 60 MINUTES Petra, MICHOACANO Rhodes.[employer]ION CAPTAIN [address] [place] [address] Referral ID Status Reason Start Date Expiration Date V isits Requested Visits Authorized [id number] Closed PCP Requested Referral 10/24/2023 10/23/2024 1 [...] or prosecute any alcohol or drug abuse patient.[facility] the event this information is protected by the Federal Confidentiality of Alcohol and Drug Abuse Patient Records regulations: The Federal rules restrict any use of the information to criminally investigate or prosecute any alcohol or drug abuse patient.[facility] CenterIn the event this information is protected by the Federal Confidentiality of Alcohol and Drug Abuse Patient Records regulations: The Federal rules restrict any use of the information to criminally investigate or prosecute any alcohol or drug abuse patient.[facility] CenterIn the event this information is protected by the Federal Confidentiality of Alcohol and Drug Abuse Patient Records regulations: The Federal rules restrict any use of the information to criminally investigate or prosecute any alcohol or drug abuse patient.[facility] CenterIn the event this information is protected by the Federal Confidentiality of Alcohol and Drug Abuse Patient Records regulations: The Federal rules restrict any use of the information to criminally investigate or prosecute any alcohol or drug abuse patient.[facility] CenterIn the event this information is protected by the Federal Confidentiality of Alcohol and Drug Abuse Patient Records regulations: The Federal rules restrict any use of the information to criminally investigate or prosecute any alcohol or drug abuse patient.[facility] CenterIn the event this information is protected by the Federal Confidentiality of Alcohol and Drug Abuse Patient Records regulations: The Federal rules restrict any use of the information to criminally investigate or prosecute any alcohol or drug abuse patient.[facility] CenterIn the event this information is protected by the Federal Confidentiality of Alcohol and Drug Abuse Patient Records regulations: The Federal rules restrict any use of the information to criminally investigate or prosecute any alcohol or drug abuse patient.[facility] CenterIn the event this information is protected by the Federal Confidentiality of Alcohol and Drug Abuse Patient Records regulations: The Federal rules restrict any use of the information to criminally investigate or prosecute any alcohol or drug abuse patient.[facility] CenterIn the event this information is protected by the Federal Confidentiality of Alcohol and Drug Abuse Patient Records regulations: The Federal rules restrict any use of the information to criminally investigate or prosecute any alcohol or drug abuse patient.[facility] CenterIn the event this information is protected by the Federal Confidentiality of Alcohol and Drug Abuse Patient Records regulations: The Federal rules restrict any use of the information to criminally investigate or prosecute any alcohol or drug abuse patient.[facility] CenterIn the event this information is protected by the Federal Confidentiality of Alcohol and Drug Abuse Patient Records regulations: The Federal rules restrict any use of the information to criminally investigate or prosecute any alcohol or drug abuse patient.[facility] CenterIn the event this information is protected by the Federal Confidentiality of Alcohol and Drug Abuse Patient Records regulations: The Federal rules restrict any use of the information to criminally investigate or prosecute any alcohol or drug abuse patient.[facility] CenterIn the event this information is protected by the Federal Confidentiality of Alcohol and Drug Abuse Patient Records regulations: The Federal rules restrict any use of the information to criminally investigate or prosecute any alcohol or drug abuse patient.[facility] CenterIn the event this information is protected by the Federal Confidentiality of Alcohol and Drug Abuse Patient Records regulations: The Federal rules restrict any use of the information to criminally investigate or prosecute any alcohol or drug abuse patient.[facility] CenterIn the event this information is protected by the Federal Confidentiality of Alcohol and Drug Abuse Patient Records regulations: The Federal rules restrict any use of the information to criminally investigate or prosecute any alcohol or drug abuse patient.[facility] CenterIn the event this information is protected by the Federal Confidentiality of Alcohol and Drug Abuse Patient Records regulations: The Federal rules restrict any use of the information to criminally investigate or prosecute any alcohol or drug abuse patient.[facility] CenterIn the event this information is protected by the Federal Confidentiality of Alcohol and Drug Abuse Patient Records regulations: The Federal rules restrict any use of the information to criminally investigate or prosecute any alcohol or drug abuse patient.[facility] CenterIn the event this information is protected by the Federal Confidentiality of Alcohol and Drug Abuse Patient Records regulations: The Federal rules restrict any use of the information to criminally investigate or prosecute any alcohol or drug abuse patient.[facility] CenterIn the event this information is protected by the Federal Confidentiality of Alcohol and Drug Abuse Patient Records regulations: The Federal rules restrict any use of the information to criminally investigate or prosecute any alcohol or drug abuse patient.[facility] CenterIn the event this information is protected by the Federal Confidentiality of Alcohol and Drug Abuse Patient Records regulations: The Federal rules restrict any use of the information to criminally investigate or prosecute any alcohol or drug abuse patient.[facility] CenterIn the event this information is protected by the Federal Confidentiality of Alcohol and Drug Abuse Patient Records regulations: The Federal rules restrict any use of the information to criminally investigate or prosecute any alcohol or drug abuse patient.[facility] CenterIn the event this information is protected by the Federal Confidentiality of Alcohol and Drug Abuse Patient Records regulations: The Federal rules restrict any use of the information to criminally investigate or prosecute any alcohol or drug abuse patient.[facility] CenterIn the event this information is protected by the Federal Confidentiality of Alcohol and Drug Abuse Patient Records regulations: The Federal rules restrict any use of the information to criminally investigate or prosecute any alcohol or drug abuse patient.[facility] CenterIn the event this information is protected by the Federal Confidentiality of Alcohol and Drug Abuse Patient Records regulations: The Federal rules restrict any use of the information to criminally investigate or prosecute any alcohol or drug abuse patient.[facility] CenterIn the event this information is protected by the Federal Confidentiality of Alcohol and Drug Abuse Patient Records regulations: The Federal rules restrict any use of the information to criminally investigate or prosecute any alcohol or drug abuse patient.[facility] CenterIn the event this information is protected by the Federal Confidentiality of Alcohol and Drug Abuse Patient Records regulations: The Federal rules restrict any use of the information to criminally investigate or prosecute any alcohol or drug abuse patient.[facility] CenterIn the event this information is protected by the Federal Confidentiality of Alcohol and Drug Abuse Patient Records regulations: The Federal rules restrict any use of the information to criminally investigate or prosecute any alcohol or drug abuse patient.[facility] CenterIn the event this information is protected by the Federal Confidentiality of Alcohol and Drug Abuse Patient Records regulations: The Federal rules restrict any use of the information to criminally investigate or prosecute any alcohol or drug abuse patient.[facility] CenterIn the event this information is protected by the Federal Confidentiality of Alcohol and Drug Abuse Patient Records regulations: The Federal rules restrict any use of the information to criminally investigate or prosecute any alcohol or drug abuse patient.[facility] CenterIn the event this information is protected by the Federal Confidentiality of Alcohol and Drug Abuse Patient Records regulations: The Federal rules restrict any use of the information to criminally investigate or prosecute any alcohol or drug abuse patient.[facility] CenterIn the event this information is protected by the Federal Confidentiality of Alcohol and Drug Abuse Patient Records regulations: The Federal rules restrict any use of the information to criminally investigate or prosecute any alcohol or drug abuse patient.[facility] CenterIn the event this information is protected by the Federal Confidentiality of Alcohol and Drug Abuse Patient Records regulations: The Federal rules restrict any use of the information to criminally investigate or prosecute any alcohol or drug abuse patient.[facility] CenterIn the event this information is protected by the Federal Confidentiality of Alcohol and Drug Abuse Patient Records regulations: The Federal rules restrict any use of the information to criminally investigate or prosecute any alcohol or drug abuse patient.[facility] CenterIn the event this information is protected by the Federal Confidentiality of Alcohol and Drug Abuse Patient Records regulations: The Federal rules restrict any use of the information to criminally investigate or prosecute any alcohol or drug abuse patient.[facility] CenterIn the event this information is protected by the Federal Confidentiality of Alcohol and Drug Abuse Patient Records regulations: The Federal rules restrict any use of the information to criminally investigate or prosecute any alcohol or drug abuse patient.[facility] CenterIn the event this information is protected by the Federal Confidentiality of Alcohol and Drug Abuse Patient Records regulations: The Federal rules restrict any use of the information to criminally investigate or prosecute any alcohol or drug abuse patient.[facility] CenterIn the event this information is protected by the Federal Confidentiality of Alcohol and Drug Abuse Patient Records regulations: The Federal rules restrict any use of the information to criminally investigate or prosecute any alcohol or drug abuse patient.[facility] CenterIn the event this information is protected by the Federal Confidentiality of Alcohol and Drug Abuse Patient Records regulations: The Federal rules restrict any use of the information to criminally investigate or prosecute any alcohol or drug abuse patient.[facility] CenterIn the event this information is protected by the Federal Confidentiality of Alcohol and Drug Abuse Patient Records regulations: The Federal rules restrict any use of the information to criminally investigate or prosecute any alcohol or drug abuse patient.[facility] CenterIn the event this information is protected by the Federal Confidentiality of Alcohol and Drug Abuse Patient Records regulations: The Federal rules restrict any use of the information to criminally investigate or prosecute any alcohol or drug abuse patient.[facility] CenterIn the event this information is protected by the Federal Confidentiality of Alcohol and Drug Abuse Patient Records regulations: The Federal rules restrict any use of the information to criminally investigate or prosecute any alcohol or drug abuse patient.[facility] CenterIn the event this information is protected by the Federal Confidentiality of Alcohol and Drug Abuse Patient Records regulations: The Federal rules restrict any use of the information to criminally investigate or prosecute any alcohol or drug abuse patient.[facility] CenterIn the event this information is protected by the Federal Confidentiality of Alcohol and Drug Abuse Patient Records regulations: The Federal rules restrict any use of the information to criminally investigate or prosecute any alcohol or drug abuse patient.[facility] CenterIn the event this information is protected by the Federal Confidentiality of Alcohol and Drug Abuse Patient Records regulations: The Federal rules restrict any use of the information to criminally investigate or prosecute any alcohol or drug abuse patient.[facility] CenterIn the event this information is protected by the Federal Confidentiality of Alcohol and Drug Abuse Patient Records regulations: The Federal rules restrict any use of the information to criminally investigate or prosecute any alcohol or drug abuse patient.[facility] CenterIn the event this information is protected by the Federal Confidentiality of Alcohol and Drug Abuse Patient Records regulations: The Federal rules restrict any use of the information to criminally investigate or prosecute any alcohol or drug abuse patient.[facility] CenterIn the event this information is protected by the Federal Confidentiality of Alcohol and Drug Abuse Patient Records regulations: The Federal rules restrict any use of the information to criminally investigate or prosecute any alcohol or drug abuse patient.[facility] CenterIn the event this information is protected by the Federal Confidentiality of Alcohol and Drug Abuse Patient Records regulations: The Federal rules restrict any use of the information to criminally investigate or prosecute any alcohol or drug abuse patient.[facility] CenterIn the event this information is protected by the Federal Confidentiality of Alcohol and Drug Abuse Patient Records regulations: The Federal rules restrict any use of the information to criminally investigate or prosecute any alcohol or drug abuse patient.[facility] CenterIn the event this information is protected by the Federal Confidentiality of Alcohol and Drug Abuse Patient Records regulations: The Federal rules restrict any use of the information to criminally investigate or prosecute any alcohol or drug abuse patient.[facility] CenterIn the event this information is protected by the Federal Confidentiality of Alcohol and Drug Abuse Patient Records regulations: The Federal rules restrict any use of the information to criminally investigate or prosecute any alcohol or drug abuse patient.[facility] CenterIn the event this information is protected by the Federal Confidentiality of Alcohol and Drug Abuse Patient Records regulations: The Federal rules restrict any use of the information to criminally investigate or prosecute any alcohol or drug abuse patient.[facility] CenterIn the event this information is protected by the Federal Confidentiality of Alcohol and Drug Abuse Patient Records regulations: The Federal rules restrict any use of the information to criminally investigate or prosecute any alcohol or drug abuse patient.[facility] CenterIn the event this information is protected by the Federal Confidentiality of Alcohol and Drug Abuse Patient Records regulations: The Federal rules restrict any use of the information to criminally investigate or prosecute any alcohol or drug abuse patient.[facility] CenterIn the event this information is protected by the Federal Confidentiality of Alcohol and Drug Abuse Patient Records regulations: The Federal rules restrict any use of the information to criminally investigate or prosecute any alcohol or drug abuse patient.[facility] CenterIn the event this information is protected by the Federal Confidentiality of Alcohol and Drug Abuse Patient Records regulations: The Federal rules restrict any use of the information to criminally investigate or prosecute any alcohol or drug abuse patient.[facility] CenterIn the event this information is protected by the Federal Confidentiality of Alcohol and Drug Abuse Patient Records regulations: The Federal rules restrict any use of the information to criminally investigate or prosecute any alcohol or drug abuse patient.[facility] CenterIn the event this information is protected by the Federal Confidentiality of Alcohol and Drug Abuse Patient Records regulations: The Federal rules restrict any use of the information to criminally investigate or prosecute any alcohol or drug abuse patient.[facility] CenterIn the event this information is protected by the Federal Confidentiality of Alcohol and Drug Abuse Patient Records regulations: The Federal rules restrict any use of the information to criminally investigate or prosecute any alcohol or drug abuse patient.[facility] Center[facility] the event this information is protected by the Federal Confidentiality of Alcohol and Drug Abuse Patient Records regulations: The Federal rules restrict any use of the information to criminally investigate or prosecute any alcohol or drug abuse patient.[facility] Reason for Visit (unrecogniz ed section and content) Reason Comments Physical Therapy Specialty Diagnoses / Procedures Referred By Suzanne t Referred To Contact [facility] Diagnoses Chronic pain of left knee Chronic knee instability, left Procedures CONSULT TO PHYSICAL THERAPY PHYSICAL THERAPY EVALUATION HIGH COMPLEX 45 MINS Older, MICHOACANO Rhodes.FIRE SUPPRESSION CAPTAIN [address] [place] [address] [facility] [place] [address] [place] [address] Referral ID Status Reason Start Date Expiration Date Visits Requested Visits Authorized [id number] Authorized PCP Requested Referral Auto-Generate d Referral [...] W/O W/CONTRAST MATERIAL Vanessa Her MD [address] [place] [address] Mr Imaging Referral ID Status Reason Start Date Expiration Date V isits Requested Visits Authorized [id number] Closed Auto-Generate d Referral 10/05/2021 11/04/2022 1 1 Reason Onset Date Comments Refill Request 11/06/2021 Reason Comments Nausea & Vomiting Specialty Diagnoses / Procedures Referred By Contac t Referred To Contact Gastroenterology Diagnoses Projectile vomiting with nausea New onset of headaches Procedures CONSULT TO GASTROENTEROLOGY OFFICE/OUTPATIENT NEW HIGH MDM 60-74 MINUTES Vanessa Her MD [address] [place] [address] Referral ID Status Reason Start Date Expiration Date V isits Requested Visits Authorized [id number] Closed PCP Requested Referral 10/05/2021 10/05/2022 1 1 Reason Comments Radiology US Specialty Diagnoses / Procedures Referred By Contac t Referred To Contact US IMAGING Diagnoses Projectile vomiting with nausea Procedures US ABD RT UPPER QUADRANT US ABDOMINAL REAL TIME W/IMAGE LIMITED Faith William PA-C [address] [facility] [place] [address] Us Imaging Referral ID Status Reason Start Date Expiration Date V isits Requested Visits Authorized [id number] Closed Auto-Generate d Referral 11/16/2021 12/16/2022 1 1 Reason Onset Date Comments Refill Request 12/27/2021 Reason Onset Date Comments Refill Request 03/27/2022 Reason Comments Consult Cyst on back Specialty Diagnoses / Procedures Referred By Contac t Referred To Contact General Surgery Diagnoses Skin cyst Procedures CONSULT TO GENERAL SURGERY OFFICE/OUTPATIENT [facility] MDM 60-74 MINUTES Older, Meagan, ADMISSIONS CLINICIAN.FIRE SUPPRESSION CAPTAIN [address] [place] [address] Referral ID Status Reason Start Date Expiration Date V isits Requested Visits Authorized [id number] Closed PCP Requested Referral 07/09/2022 07/09/2023 1 [...] Tenderness Procedures CONSULT TO GENERAL SURGERY OFFICE/OUTPATIENT [facility] 60-74 MINUTES Older, Meagan, ADMISSIONS CLINICIAN.FIRE SUPPRESSION CAPTAIN [address] [place] [address] Referral ID Status Reason Start Date Expiration Date V isits Requested Visits Authorized [id number] Closed PCP Requested Referral 11/05/2022 11/05/2023 1 [...] foot Procedures CONSULT TO PODIATRY OFFICE/OUTPATIENT [facility] MDM 60 MINUTES Older, Meagan, ADMISSIONS CLINICIAN.FIRE SUPPRESSION CAPTAIN [address] [place] [address] Referral ID Status Reason Start Date Expiration Date V isits Requested Visits Authorized [id number] Closed PCP Requested Referral 04/22/2023 04/21/2024 1 1 Reason Onset Date Comments Refill Request 10/01/2023 Reason Comments Recheck 6 month follow up Reason Comments Consult Specialty Diagnoses / Procedures Referred By Contac t Referred To Contact Gerontology Diagnoses Alzheimer's disease (HCC) Procedures CONSULT TO GERIATRICS OFFICE/OUTPATIENT NEW HIGH MDM 60 MINUTES Older, MICHOACANO Rhodes.FIRE SUPPRESSION CAPTAIN [address] [place] [address] Referral ID Status Reason Start Date Expiration Date V isits Requested Visits Authorized [id number] Closed PCP Requested Referral 10/24/2023 10/23/2024 1 [...] Comments Population Health Navigation Outreach 09/14/2024 [facility] Reason Comments Medicare Wellness Exam Reason Comments Reason Comments Goals of Care Reason Comments Initial Consult [facility] [id number] Reason Onset Date Comments Transition Of Care 11/27/2024 Chart review Care Teams (unrecognized sec tion and content) Eclectic Doctor Relationship Specialty Start Date End Date Vanessa Her MD [address] [place] [address] PCP - General Internal Medicine 07/30/16 Eclectic Doctor Relationship Specialty Start Date End Date Vanessa Her MD [address] [place] [address] PCP - General Internal Medicine 07/30/16 Eclectic Doctor Relationship Specialty Start Date End Date Vanessa Her MD [address] [place] [address] PCP - General Internal Medicine 07/30/16 Eclectic Doctor Relationship Specialty Start Date End Date Vanessa Her MD [address] [place] [address] PCP - General Internal Medicine 07/30/16 Eclectic Doctor Relationship Specialty Start Date End Date Vanessa Her MD [address] [place] [address] PCP - General Internal Medicine 07/30/16 Eclectic Doctor Relationship Specialty Start Date End Date Vanessa Her MD [address] [place] [address] PCP - General Internal Medicine 07/30/16 Eclectic Doctor Relationship Specialty Start Date End Date Vanessa Her MD [address] [place] [address] PCP - General Internal Medicine 07/30/16 Eclectic Doctor Relationship Specialty Start Date End Date Vanessa Her MD [address] [place] [address] PCP - General Internal Medicine 07/30/16 Eclectic Doctor Relationship Specialty Start Date End Date Vanessa Her MD [address] [place] [address] PCP - General Internal Medicine 07/30/16 Eclectic Doctor Relationship Specialty Start Date End Date Vanessa Her MD [address] [place] [address] PCP - General Internal Medicine 07/30/16 Eclectic Doctor Relationship Specialty Start Date End Date Vanessa Her MD [address] [place] [address] PCP - General Internal Medicine 07/30/16 Eclectic Doctor Relationship Specialty Start Date End Date Vanessa Her MD [address] [place] [address] PCP - General Internal Medicine 07/30/16 Eclectic Doctor Relationship Specialty Start Date End Date Vanessa Her MD [address] [place] [address] PCP - General Internal Medicine 07/30/16 Eclectic Doctor Relationship Specialty Start Date End Date Vanessa Her MD [address] [place] [address] PCP - General Internal Medicine 07/30/16 Eclectic Doctor Relationship Specialty Start Date End Date Vanessa Her MD [address] [place] [address] PCP - General Internal Medicine 07/30/16 Eclectic Doctor Relationship Specialty Start Date End Date Vanessa Her MD [address] [place] [address] PCP - General Internal Medicine 07/30/16 Eclectic Doctor Relationship Specialty Start Date End Date Vanessa Her MD [address] [place] [address] PCP - General Internal Medicine 07/30/16 Eclectic Doctor Relationship Specialty Start Date End Date Vanessa Her MD [address] [place] [address] PCP - General Internal Medicine 07/30/16 Eclectic Doctor Relationship Specialty Start Date End Date Vanessa Her MD [address] [place] [address] PCP - General Internal Medicine 07/30/16 Eclectic Doctor Relationship Specialty Start Date End Date Vanessa Her MD [address] [place] [address] PCP - General Internal Medicine 07/30/16 Eclectic Doctor Relationship Specialty Start Date End Date Vanessa Her MD [address] [place] [address] PCP - General Internal Medicine 07/30/16 Eclectic Doctor Relationship Specialty Start Date End Date Vanessa Her MD [address] [place] [address] PCP - General Internal Medicine 07/30/16 Eclectic Doctor Relationship Specialty Start Date End Date Vanessa Her MD [address] [place] [address] PCP - General Internal Medicine 07/30/16 Eclectic Doctor Relationship Specialty Start Date End Date Vanessa Her MD [address] [place] [address] PCP - General Internal Medicine 07/30/16 Eclectic Doctor Relationship Specialty Start Date End Date Vanessa Her MD [address] [place] [address] PCP - General Internal Medicine 07/30/16 Eclectic Doctor Relationship Specialty Start Date End Date Vanessa Her MD [address] [place] [address] PCP - General Internal Medicine 07/30/16 Eclectic Doctor Relationship Specialty Start Date End Date Vanessa Her MD [address] [place] [address] PCP - General Internal Medicine 07/30/16 Eclectic Doctor Relationship Specialty Start Date End Date Vanessa Her MD [address] [place] [address] PCP - General Internal Medicine 07/30/16 Eclectic Doctor Relationship Specialty Start Date End Date Vanessa Her MD [address] [place] [address] PCP - General Internal Medicine 07/30/16 Eclectic Doctor Relationship Specialty Start Date End Date Vanessa Her MD [address] [place] [address] PCP - General Internal Medicine 07/30/16 Eclectic Doctor Relationship Specialty Start Date End Date Vanessa Her MD [address] [place] [address] PCP - General Internal Medicine 07/30/16 Kinga Reyes PA-C [address] [place] [address] Color Worker Family Medicine 03/01/24 Meagan Lambert APRN.FIRE SUPPRESSION CAPTAIN [address] [place] [address] Color Worker Internal Medicine 03/01/24 Gaby Cisse PA-C [address] [place] [address] Color Worker Family Medicine 03/01/24 Eclectic Doctor Relationship Specialty Start Date End Date Vanessa Her MD [address] [place] [address] PCP - General Internal Medicine 07/30/16 Kinga Reyes PA-C [address] [place] [address] Color Worker Family Medicine 03/01/24 Meagan Lambert APRN.FIRE SUPPRESSION CAPTAIN [address] [place] [address] Color Worker Internal Medicine 03/01/24 Gaby Cisse PA-C [address] [place] [address] Color Worker Family Medicine 03/01/24 Eclectic Doctor Relationship Specialty Start Date End Date Vanessa Her MD [address] [place] [address] PCP - General Internal Medicine 07/30/16 Kinga Reyes PA-C [address] [place] [address] Color Worker Family Medicine 03/01/24 Meagan Lambert APRN.FIRE SUPPRESSION CAPTAIN [address] [place] [address] Color Worker Internal Medicine 03/01/24 Gaby Cisse PA-C [address] [place] [address] Color Worker Family Medicine 03/01/24 Eclectic Doctor Relationship Specialty Start Date End Date Vanessa Her MD [address] [place] [address] PCP - General Internal Medicine 07/30/16 Kinga Reyes PA-C [address] [place] [address] Color Worker Family Medicine 03/01/24 Meagan Lambert, ADMISSIONS CLINICIAN.FIRE SUPPRESSION CAPTAIN [address] [place] [address] Color Worker Internal Medicine 03/01/24 Gaby Cisse PA-C [address] [place] [address] Color Worker Family Medicine 03/01/24 Eclectic Doctor Relationship Specialty Start Date End Date Vanessa Her MD [address] [place] [address] PCP - General Internal Medicine 07/30/16 Kinga Reyes PA-C [address] [place] [address] Color Worker Family Medicine 03/01/24 Meagan Lambert APRN.FIRE SUPPRESSION CAPTAIN [address] [place] [address] Color Worker Internal Medicine 03/01/24 Gaby Cisse PA-C [address] [place] [address] Color Worker Family Medicine 03/01/24 Eclectic Doctor Relationship Specialty Start Date End Date Vanessa Her MD [address] [place] [address] PCP - General Internal Medicine 07/30/16 Kinga Reyes PA-C [address] [place] [address] Color Worker Family Medicine 03/01/24 06/14/24 Meagan Lambert APRN.FIRE SUPPRESSION CAPTAIN [address] [place] [address] Color Worker Internal Medicine 03/01/24 Gaby Cisse PA-C [address] [place] [address] Color Worker Family Medicine 03/01/24 06/14/24 Eclectic Doctor Relationship Specialty Start Date End Date Vanessa Her MD [address] [place] [address] PCP - General Internal Medicine 07/30/16 Kinga Reyes PA-C [address] [place] [address] Color Worker Family Medicine 03/01/24 06/14/24 Meagan Lambert APRN.FIRE SUPPRESSION CAPTAIN [address] [place] [address] Color Worker Internal Medicine 03/01/24 Gaby Cisse PA-C [address] [place] [address] Color Worker Family Medicine 03/01/24 06/14/24 Eclectic Doctor Relationship Specialty Start Date End Date Vanessa Her MD [address] [place] [address] PCP - General Internal Medicine 07/30/16 Meagan Lambert APRN.FIRE SUPPRESSION CAPTAIN [address] [place] [address] Color Worker Internal Medicine 03/01/24 Eclectic Doctor Relationship Specialty Start Date End Date Vanessa Her MD [address] [place] [address] PCP - General Internal Medicine 07/30/16 Meagan Lambert APRN.FIRE SUPPRESSION CAPTAIN [address] [place] [address] Color Worker Internal Medicine 03/01/24 Eclectic Doctor Relationship Specialty Start Date End Date Vanessa Her MD [address] [place] [address] PCP - General Internal Medicine 07/30/16 Meagan Lambert, ADMISSIONS CLINICIAN.FIRE SUPPRESSION CAPTAIN [address] [place] [address] Color Worker Internal Medicine 03/01/24 Eclectic Doctor Relationship Specialty Start Date End Date Vanessa Her MD [address] [place] [address] PCP - General Internal Medicine 07/30/16 Meagan Lambert, ADMISSIONS CLINICIAN.FIRE SUPPRESSION CAPTAIN [address] [place] [address] Color Worker Internal Medicine 03/01/24 Eclectic Doctor Relationship Specialty Start Date End Date Vanessa Her MD [address] [place] [address] PCP - General Internal Medicine 07/30/16 Meagan Lambert, ADMISSIONS CLINICIAN.FIRE SUPPRESSION CAPTAIN [address] [place] [address] Color Worker Internal Medicine 03/01/24 Eclectic Doctor Relationship Specialty Start Date End Date Vanessa Her MD [address] [place] [address] PCP - General Internal Medicine 07/30/16 Meagan Lambert, ADMISSIONS CLINICIAN.FIRE SUPPRESSION CAPTAIN [address] [place] [address] Color Worker Internal Medicine 03/01/24 Roly Wilks, RN Specialty [employer] [facility] 10/23/24 Eclectic Doctor Relationship Specialty Start Date End Date Vanessa Her MD [address] [place] [address] PCP - General Internal Medicine 07/30/16 Meagan Lambert APRN.FIRE SUPPRESSION CAPTAIN [address] [place] [address] Color Worker Internal Medicine 03/01/24 Roly Wilks RN Specialty Forge Press Operator [facility] 10/23/24 INFORMATION SOURCE (unrecogn ized section and content) DATE CREATED AUTHOR 07/12/2021 [facility] DATE CREATED AUTHOR AUTHOR'S ORGANIZ ATION 10/22/2022 [facility] DATE CREATED AUTHOR AUTHOR'S ORGANIZ ATION 03/13/2023 [facility] DATE CREATED AUTHOR AUTHOR'S ORGANIZ ATION 12/17/2023 [facility] DATE CREATED AUTHOR AUTHOR'S ORGANIZ ATION 01/03/2025 [facility] FOR RECORDS PERTAINING TO PATIENTS WHO [...] BE BASED ON THE PRIMARY CLINICAL RECORDS. [facility]. provides no warranty or guarantee of the accuracy or completeness of information in this document.
[2025-03-06] MEDS: Ensure Plus High Protein 120 ML LIQUID PO ×2 (12:53→16:20)
--- NOTE | 2025-03-06 14:27 | PCM.HP.STD ---
HPI - General General Date of Admission: 03/06/25 Date of Service: 03/06/25 Chief Complaint: Debility HPI Narrative VIOLA FLORES, is a 84 F who presents progressive debility. This is an 84-year-old female with a history of dementia who has progressed over the years, is now very impulsive, and falls. Patient is not taking her medications as instructed and the has stopped trying to force medications upon her given her impulse not to take any of her medications. She has gotten worse over this time and he, despite his best efforts, is unable to further take care of her. He was tried to get her into a memory unit locally but her condition has deteriorated so much that he is unable to do so. [ ] [facility] Medical History Kidney disease Hypertension Dementia Home Medications ?Medication ?Instructions ?Recorded ?Last Taken ?Type metoprolol succinate 50 mg 25 mg PO DAILY heart 12/10/16 12/10/16 History tablet,extended release 24 hr (Toprol XL) amlodipine 2.5 mg tablet 2.5 mg PO DAILY bp 02/27/25 Unknown History apixaban 5 mg tablet (Eliquis) 5 mg PO BID blood thinner 02/27/25 Unknown History citalopram 10 mg tablet 10 mg PO DAILY depression 02/27/25 Unknown History famotidine 40 mg tablet 40 mg PO DAILY gerd 02/27/25 Unknown History ferrous gluconate 225 mg (27 mg 225 mg PO DAILY anemia 02/27/25 Unknown History iron) tablet (Fergon) memantine 5 mg tablet 5 mg PO BID dementia 02/27/25 Unknown History pravastatin 20 mg tablet 20 mg PO DAILY cholesterol 02/27/25 Unknown History levothyroxine 37.5 mcg/mL oral 37.5 mcg PO DAILY thyroid 03/06/25 Unknown History solution (Tirosint-Daxa) Allergy/AdvReac Type Severity Reaction Status Date / Time estrogens, conjugated (From Allergy Itching Verified 03/06/25 08:34 Premarin) medroxyprogesterone Allergy Unknown Verified 03/06/25 08:34 nitrofurantoin (From Allergy Itching Verified 03/06/25 08:34 Furadantin) sulfamethoxazole (From Allergy Swelling Verified 03/06/25 08:34 Bactrim) trimethoprim (From Bactrim) Allergy Swelling Verified 03/06/25 08:34 Family History unable to obtain unable to obtain Surgical History unable to obtain unable to obtain Social History Smoking Status: Former smoker ROS Review of Systems ROS Unobtainable: due to encephalopathy Vital Signs Vital Signs Vital Signs: 03/06/25 08:31 03/06/25 08:44 03/06/25 10:27 Temperature 36.4 C L 36.0 C L Temperature Source Oral Pulse Rate 88 62 Respiratory Rate 18 16 Respiratory Effort Normal Non-Labored Respiratory Depth Normal Respiratory Pattern Normal Blood Pressure 130/79 H 134/115 H Blood Pressure Mean 96 121 Blood Pressure Source Blood Pressure Position Blood Pressure Location Pulse Ox 97 97 95 Oxygen Delivery Method Room Air Room Air 03/06/25 11:28 03/06/25 11:36 Temperature 36.3 C L Temperature Source Temporal Pulse Rate 113 H Respiratory Rate 16 Respiratory Effort Normal Respiratory Depth Normal Respiratory Pattern Normal Blood Pressure 135/113 H Blood Pressure Mean 120 Blood Pressure Source Monitor Blood Pressure Position Left Lateral Blood Pressure Location Right Arm Pulse Ox 100 Oxygen Delivery Method Room Air Room Air Weight Weight: 79.832 kg Body Mass Index (BMI) 29.2 Physical Exam Const no apparent distress Constitutional Narrative: Sleeping. Did not awake. Nontoxic. Afebrile. HEENT normocephalic, head/scalp atraumatic, hearing grossly normal bilaterally and moist oral mucous membranes Resp normal respiratory effort, no retractions, no use of accessory muscles and clear to auscultation bilaterally Cardio regular rate GI normal to inspection, nondistended, normoactive bowel sounds, soft to palpation and non-tender Extremity normal to inspection and full ROM Neuro Sensorium / Orientation: awake and alert Results Lab / Micro Data 03/06/25 09:00 03/06/25 09:00 Labs: Laboratory Results - last 24 hr 03/06/25 09:00: WBC 7.1, RBC 4.43, Hgb 13.6, Hct 41.4, MCV 93.5, MCH 30.7, MCHC 32.9, RDW Std Deviation 53.9 H, RDW Coeff of Isa 15.8 H, Plt Count 246, MPV 11.4, Immature Gran % (Auto) 1.000 H, Neut % (Auto) 67.1, Lymph % (Auto) 22.7, [place] % (Auto) 7.3, Eos % (Auto) 1.1, Baso % (Auto) 0.8, Absolute Neuts (auto) 4.8, Absolute Lymphs (auto) 1.61, Nucleated RBC % 0, Sodium 144, Potassium 2.7 L*, Chloride 104, Carbon Dioxide 25.9, Anion Gap 14, BUN 21 H, Creatinine 1.30 H, Estim Creat Clear Calc 35.02 L, Est GFR (MDRD) Non-Af 41 L, BUN/Creatinine Ratio 16.0, Glucose 95, Calcium 10.1, Magnesium 2.1 Imaging Radiology Impression Brain CT 03/06/25 08:43 IMPRESSION: No acute intracranial abnormalities. No acute injury to the cervical spine. Reading Location: [facility] Cervical Spine CT 03/06/25 08:43 IMPRESSION: No acute intracranial abnormalities. No acute injury to the cervical spine. Reading Location: [facility] Assessment & Plan Assessment/Plan (1) Debility: PLAN: Progressive due to patient's dementia. PT OT evaluate and treat. Case management to assist on disposition. PLAN: Plan Dementia: Advanced per history. Continue with memantine as patient tolerates. Depression: Since patient is not quite other medications at hold off any further citalopram Hypothyroidism: Continue levothyroxine Atrial fibrillation: Since patient is noncompliant with her medications, I feel the risks of anticoagulation outweigh the benefits and she will hold off on the apixaban. Continue with metoprolol succinate as patient will tolerate that Hypertension: Continue with amlodipine as patient tolerates VTE prophylaxis with enoxaparin CODE STATUS: Addressed with the patient's . Patient is DNR Comfort Care arrest no intubation Charges/Coding Visit Charges Inpatient E&M: 61328 Init Hosp L2
[2025-03-06] MEDS: 0.9% Saline Lock 10 ML Syringe IV (19:49)
[2025-03-06] MEDS: Memantine Hydrochloride 5 MG Tablet PO (19:49)
[2025-03-07 04:52] LABS: Anion Gap 14 (5-15); BUN 18 mg/dL (4-19); BUN/Creat Ratio 16.8 RATIO (10-20); Calcium,Total 10.1 mg/dL (7.6-11.0); Carbon Dioxide 22.8 mmol/L (21.0-32.0); Chloride 104 mmol/L (98-108); Estimated Creatinine Clearance 43.13 ml/min (50-250); Glucose 95 mg/dL (70-99); Potassium 3.1 mmol/L (3.3-5.1)
[2025-03-07 04:57] VITALS: BP 116/78; PULSE 95; RESP 16; TEMP 36.3; O2SAT 99
[2025-03-07] MEDS: 0.9% Saline Lock 10 ML Syringe IV (05:11)
--- NOTE | 2025-03-07 08:32 | PN.HOSP_ITS ---
Reason for Visit Chief Complaint: Debility Subjective Subjective Per nursing, patient has taken her medications when it is putting something sweet such as pudding. Otherwise minimally interactive. Does confabulate when she does talk. Objective Data Objective Data Vital Signs: Vital Signs Temp Pulse Resp BP Pulse Ox O2 Del Method 36.3 C L 95 16 116/78 99 Room Air 03/07/25 04:57 03/07/25 04:57 03/07/25 04:57 03/07/25 04:57 03/07/25 04:57 03/07/25 04:57 Oxygen Delivery Method Room Air Weight: 79.832 kg Body Mass Index (BMI) 29.2 Intake & Output: Intake and Output for Last 24 Hours 03/05/25 03/06/25 03/07/25 23:59 23:59 23:59 Intake Total 1000 / 1000 50 / 50 Balance 1000 / 1000 50 / 50 Lab / Micro Data 03/06/25 09:00 03/07/25 03:29 Labs: Laboratory Results - last 24 hr 03/06/25 09:00: WBC 7.1, RBC 4.43, Hgb 13.6, Hct 41.4, MCV 93.5, MCH 30.7, MCHC 32.9, RDW Std Deviation 53.9 H, RDW Coeff of Isa 15.8 H, Plt Count 246, MPV 11.4, Immature Gran % (Auto) 1.000 H, Neut % (Auto) 67.1, Lymph % (Auto) 22.7, [place] % (Auto) 7.3, Eos % (Auto) 1.1, Baso % (Auto) 0.8, Absolute Neuts (auto) 4.8, Absolute Lymphs (auto) 1.61, Nucleated RBC % 0, Sodium 144, Potassium 2.7 L*, Chloride 104, Carbon Dioxide 25.9, Anion Gap 14, BUN 21 H, Creatinine 1.30 H , Estim Creat Clear Calc 35.02 L, Est GFR (MDRD) Non-Af 41 L, BUN/Creatinine Ratio 16.0, Glucose 95, Calcium 10.1, Magnesium 2.1 03/07/25 03:29: Sodium 141, Potassium 3.1 L, Chloride 104, Carbon Dioxide 22.8, Anion Gap 14, BUN 18, Creatinine 1.05, Estim Creat Clear Calc 43.13 L, Est GFR (MDRD) Non-Af 53 L, BUN/Creatinine Ratio 16.8, Glucose 95, Calcium 10.1 Radiography Diagnostic Testing: Radiology Impression Brain CT 03/06/25 08:43 IMPRESSION: No acute intracranial abnormalities. No acute injury to the cervical spine. Reading Location: [facility] Cervical Spine CT 03/06/25 08:43 IMPRESSION: No acute intracranial abnormalities. No acute injury to the cervical spine. Reading Location: [facility] Physical Exam Const Constitutional Narrative: Sleeping on her left side. Afebrile. Nontoxic-appearing. Resp normal respiratory effort, no retractions, no use of accessory muscles and clear to auscultation bilaterally Cardio regular rate, regular rhythm, S1 normal heart sound and S2 normal heart sound Extremity normal to inspection Assessment & Plan Assessment/Plan (1) Debility: PLAN: Progressive due to patient's dementia. PT OT evaluate and treat. Case management to assist on disposition. PLAN: Plan Dementia: Advanced per history. Continue with memantine as patient tolerates.Had no events overnight. She does have PRN haloperidol and lorazepam ordered. Depression: Since patient is not quite other medications at hold off any further citalopram Hypothyroidism: Continue levothyroxine Atrial fibrillation: Since patient is noncompliant with her medications, I feel the risks of anticoagulation outweigh the benefits and she will hold off on the apixaban. Continue with metoprolol succinate as patient will tolerate that Hypertension: Continue with amlodipine as patient tolerates VTE prophylaxis with enoxaparin CODE STATUS: Addressed previously with the patient's . Patient is DNR Comfort Care arrest no intubation Charges/Coding Visit Charges Inpatient E&M: 47815 Subs Hosp L1
[2025-03-07 09:03] VITALS: PULSE 84
[2025-03-07] MEDS: Memantine Hydrochloride 5 MG Tablet PO ×2 (09:03→19:46)
[2025-03-07] MEDS: Metoprolol(XL)Succ 25 MG Tablet PO (09:03)
[2025-03-07] MEDS: FLU VACCINE HIGH DOSE 25-26(65YR UP) 180 MCG/0.5 ML SYRINGE IM (09:12)
[2025-03-07] MEDS: Ensure Plus High Protein 120 ML LIQUID PO ×3 (09:17→16:37)
[2025-03-07 09:20] VITALS: BP 131/97; PULSE 84; RESP 16; TEMP 36.4; O2SAT 100
[2025-03-07 12:08] VITALS: BP 121/89; PULSE 82; RESP 16; TEMP 36.6; O2SAT 98
[2025-03-07 15:26] VITALS: BP 106/59; PULSE 53; RESP 16; TEMP 36.9; O2SAT 97
[2025-03-07 19:38] VITALS: BP 122/77; PULSE 95; RESP 18; TEMP 37.5; O2SAT 99
[2025-03-07] MEDS: MELATONIN 3 MG TABLET PO (19:45)
[2025-03-08 04:30] VITALS: BP 148/105; PULSE 87; RESP 18; TEMP 36.3; O2SAT 99
[2025-03-08] MEDS: Ensure Plus High Protein 120 ML LIQUID PO ×3 (08:49→16:48)
[2025-03-08] MEDS: Memantine Hydrochloride 5 MG Tablet PO ×2 (08:50→19:50)
[2025-03-08 08:56] VITALS: BP 101/74; PULSE 78; RESP 16; TEMP 36.8; O2SAT 96
--- NOTE | 2025-03-08 10:25 | CASEMGMT ---
Social Work- SW spoke with Mindy at [facility] and pt spouse. Mindy reports that pt was assessed Saturday and it was planned for pt spouse to sign paperwork today prior to admit. Pt spouse reports that he is going to buy furniture this morning and have delivered to the [place]. Pt spouse will update SW on delivery date, but isn't sure if it will be Sat or Sat. Mindy reports that pt PCP was sent POC form last Saturday, but they have not responded at this time. Mindy to fax SW form in the event that hospitalist is willing to sign for d/c, as pt is unable to admit to AL until form is received. Pt spouse will stop at hospital. SW to provide updates following collaboration with physician at that time. BINA Goff
[2025-03-08 11:44] VITALS: BP 92/54; PULSE 62; RESP 16; TEMP 36.6; O2SAT 97
--- NOTE | 2025-03-08 13:40 | PN_ITS ---
Subjective Subjective Patient seen and examined with her nurse by her bedside. She had no active complaints. Review of systems is otherwise negative. She is awaiting placement. Objective Data Objective Data Vital Signs: Vital Signs Temp Pulse Resp BP Pulse Ox O2 Del Method 97.8 F 62 16 92/54 L 97 Room Air 03/08/25 11:44 03/08/25 11:44 03/08/25 11:44 03/08/25 11:44 03/08/25 11:44 03/08/25 11:44 Oxygen Delivery Method Room Air Weight: 175 lb 15.991 oz Body Mass Index (BMI) 29.2 Intake & Output: Intake and Output for Last 24 Hours 03/06/25 03/07/25 03/08/25 23:59 23:59 23:59 Intake Total 1000 / 1000 500 / 500 450 / 450 Output Total 600 / 600 Balance 1000 / 1000 500 / 500 -150 / -150 Lab / Micro Data 03/06/25 09:00 03/07/25 03:29 Physical Exam Const alert and no apparent distress Constitutional Narrative: confused, flat affect General Appearance: cooperative HEENT normocephalic, head/scalp atraumatic, moist oral mucous membranes and oropharynx normal Eyes EOMs intact bilaterally Neck supple and no JVD Resp normal respiratory effort, normal air movement and clear to auscultation bilaterally Cardio regular rate, regular rhythm, S1 normal heart sound, S2 normal heart sound and no murmurs GI normal to inspection, nondistended, normoactive bowel sounds, soft to palpation and non-tender Extremity normal capillary refill, no clubbing, cyanosis or edema and no calf tenderness General Extremity: no tenderness to palpation of joints or extremities Skin General Skin Exam: no breakdown Neuro no focal motor deficits and no sensory deficits noted Motor Exam: general weakness Psych cooperative Psych Narrative: confused Mood & Affect: flat affect Assessment & Plan Assessment/Plan (1) Dementia: PLAN: Plan #Debility and weakness due to dementia * PT/OT on board. Fall precautions. #Hypothyroidism: on synthroid #Hypotension: BP is down at 92/54. Hold metoprolol. Hydrate gently with IVF and monitor #HYpertension: on metoprolol and amlodipine. Hold these meds for now and monitor due to low BP. #Atrial fibrillation: on metoprolol. Due to her frequent falls. Due to concerns about frequent mechanical falls, eliquis held. DVT prophylaxis: on lovenox Code status: DNRCCA no intubation. Disposition: awaiting placement Charges/Coding Visit Charges Inpatient E&M: 75333 Subs Hosp L2
--- NOTE | 2025-03-08 14:32 | CASEMGMT ---
JERE Met with pts to complete OQUENDO form. OQUENDO form and its content were verbally explained and questions were answered to the best of my ability.? Pts voiced understanding and signed OQUENDO form.? Patient provided a copy of signed OQUENDO form and original placed in patient's chart.? Francy Spencer, Discharge Planning Asst
[2025-03-08 14:40] LABS: Anion Gap 8 (5-15); BUN 21 mg/dL (4-19); BUN/Creat Ratio 16.6 RATIO (10-20); Calcium,Total 10.6 mg/dL (7.6-11.0); Carbon Dioxide 31.2 mmol/L (21.0-32.0); Chloride 100 mmol/L (98-108); Estimated Creatinine Clearance 36.23 ml/min (50-250); Glucose 86 mg/dL (70-99); Potassium 3.2 mmol/L (3.3-5.1)
[2025-03-08 15:20] VITALS: BP 91/55; PULSE 77; RESP 16; TEMP 36.8; O2SAT 98
--- NOTE | 2025-03-08 15:55 | CASEMGMT ---
Social Work- SW attempted to call to complete assessment. SW left a voicemail requesting a call back. SHANON collaborated with hospitalist on plan of care paperwork for [facility]. BINA Goff
--- NOTE | 2025-03-08 16:10 | CASEMGMT ---
Social Work- SHANON received a call from anita reporting that spouse signed contract. Plan of Care paperwork needs completed; hospitalist willing to review in the morning. Anita reports that the soonest a bed/furniture can be delivered is Wed at 12-1. SW will coordinate discharge time and transportation with spouse when he returns SW call or when spouse visits pt tomorrow. SW also to follow for assessment with spouse, as pt is Ox0. Plan: BINA Mcdaniel
[2025-03-08 19:35] VITALS: BP 124/86; PULSE 89; RESP 16; TEMP 36.2; O2SAT 100
[2025-03-08] MEDS: MELATONIN 3 MG TABLET PO (19:51)
[2025-03-09 02:39] VITALS: BP 116/104; PULSE 110; RESP 16; TEMP 36.9; O2SAT 96
[2025-03-09 07:15] LABS: Hematocrit 38.5 % (37-47); Hemoglobin 13.0 g/dL (12.0-15.0); Immature Granulocytes Count 0.150 X10^3/uL (0.0-0.0); Mean Corp Hgb Conc 33.8 g/dL (32-36); Mean Corpuscular Volume 92.1 fL (81-99); Mean Platelet Vol. 11.0 fl (6.2-12.0); NRBC Flagged by Analyzer 0 % (0-5); Platelet Count 209 K/mm3 (150-450); RBC Distribution Width CV 15.7 % (11.6-14.6); RBC Distribution Width SD 53.4 fl (35.1-43.9); Red Blood Count 4.18 M/mm3 (4.2-5.4); White Blood Count 6.8 K/mm3 (4.4-11.0)
[2025-03-09 07:47] VITALS: BP 125/77; PULSE 68; RESP 16; TEMP 36.5; O2SAT 98
[2025-03-09 07:50] LABS: Anion Gap 11 (5-15); BUN 22 mg/dL (4-19); BUN/Creat Ratio 16.9 RATIO (10-20); Calcium,Total 10.7 mg/dL (7.6-11.0); Carbon Dioxide 26.5 mmol/L (21.0-32.0); Chloride 100 mmol/L (98-108); Estimated Creatinine Clearance 35.38 ml/min (50-250); Glucose 86 mg/dL (70-99); Potassium 3.4 mmol/L (3.3-5.1)
--- NOTE | 2025-03-09 10:43 | CASEMGMT ---
Social Work SHANON spoke w/physician, she completed needed paperwork for the assisted living admission. SHANON faxed the plan of care, med list, H&P and therapy notes over to [facility] for their review. SHANON also called Mindy at [facility] and left a message for her to call SHANON back. SHANON will continue to follow. It is anticipated pt's furniture will be delivered today and pt will be able to go to [facility] tomorrow. ADRIAN Meza
[2025-03-09] MEDS: Ensure Plus High Protein 120 ML LIQUID PO ×3 (10:57→16:57)
[2025-03-09 10:58] VITALS: BP 125/77; PULSE 68
[2025-03-09] MEDS: Metoprolol(XL)Succ 25 MG Tablet PO (10:58)
[2025-03-09] MEDS: Memantine Hydrochloride 5 MG Tablet PO ×2 (10:58→20:04)
--- NOTE | 2025-03-09 11:55 | CASEMGMT ---
Social Work SHANON had reached out to Mindy at [facility] earlier and left a message. She called back, she did get all the paperwork and said pt is good to come tomorrow once the furniture gets delivered, which is to be between 10am-12pm. SHANON inquired about pt getting HHC, they are agreeable for pt to get HHC, she states H HH often comes into their facility. SW will check w/ and make referral. She also asked about a walker, SW explained will check w/pt's husban about this later today and let her know. SHANON will continue to follow.
--- NOTE | 2025-03-09 13:00 | CASEMGMT ---
Addendum entered by Kitty Pinto 03/09/25 14:57: Social Work was agreeable to referral to [facility], SW made referral. SW also inquired about getting to [place] tomorrow, he would prefer we set up an ambulance, SW explained we will do this tomorrow. SW made referral to [facility], they cannot take pt. SW reached out to [facility] to let them know pt has a walker, and if they have another option for HHC. SW will continue to follow. ADRIAN Meza Original Note: Social Work SW spoke w/ in room to complete assessment. Plan is for pt to go to [place] tomorrow. PCP: Dr. Bernal Specialists: None at the moment, looking to change all of her specialists to the [place] area, she was seeing specialists in [place]. Pt has not been in the few months however due to her health. Preferred Pharmacy: [facility] outpt pharmacy Insurance: Medicare/[employer] Prescription Benefit: [employer] Living Will/HCPOA: brought in, they are now on file, he is POA LNOK: Living Arrangements/Prior level of function: Pt was living at home w/, he was helping pt with all ADLs including cooking, cleaning, med management, transportation, dressing, bathing. DME: Pt has a cane, walker, shower chair, raised toilet seat HHC/SNF: No history of either PLAN: [place] at discharge. SW will continue to follow, plan will be for [place] tomorrow, is open to some HHC for PT/OT at [place]. He does not have a preference for agency so list not provided. SW will follow up regading HHC and plan to get to [place]. ADRIAN Meza
--- NOTE | 2025-03-09 14:12 | PCM.PROGNOTE ---
Subjective Subjective Patient seen and examined with her nurse by her bedside. She still remained quite confused. Unable to do comprehensive review of systems. She has remained hemodynamically stable. She is awaiting DC to Assisted Living. Objective Data Objective Data Vital Signs: Vital Signs Temp Pulse Resp BP Pulse Ox O2 Del Method 97.7 F L 68 16 125/77 H 98 Room Air 03/09/25 07:47 03/09/25 10:58 03/09/25 07:47 03/09/25 10:58 03/09/25 07:47 03/09/25 09:10 Oxygen Delivery Method Room Air Weight: 175 lb 15.991 oz Body Mass Index (BMI) 29.2 Intake & Output: Intake and Output for Last 24 Hours 03/07/25 03/08/25 03/09/25 23:59 23:59 23:59 Intake Total 500 / 500 1050 / 1050 800 / 800 Output Total 600 / 600 1650 / 1650 Balance 500 / 500 450 / 450 -850 / -850 Lab / Micro Data 03/09/25 06:45 03/09/25 06:45 Labs: Laboratory Results - last 24 hr 03/08/25 14:13: Sodium 139, Potassium 3.2 L, Chloride 100, Carbon Dioxide 31.2, Anion Gap 8, BUN 21 H, Creatinine 1.25 H, Estim Creat Clear Calc 36.23 L, Est GFR (MDRD) Non-Af 43 L, BUN/Creatinine Ratio 16.6, Glucose 86, Calcium 10.6 03/09/25 06:45: WBC 6.8, RBC 4.18 L, Hgb 13.0, Hct 38.5, MCV 92.1, MCH 31.1, MCHC 33.8, RDW Std Deviation 53.4 H, RDW Coeff of Isa 15.7 H, Plt Count 209, MPV 11.0, Immature Gran % (Auto) 2.200 H, Neut % (Auto) 63.8, Lymph % (Auto) 23.9, [place] % (Auto) 7.5, Eos % (Auto) 1.9, Baso % (Auto) 0.7, Absolute Neuts (auto) 4.3, Absolute Lymphs (auto) 1.63, Nucleated RBC % 0, Sodium 137, Potassium 3.4, Chloride 100, Carbon Dioxide 26.5, Anion Gap 11, BUN 22 H, Creatinine 1.28 H, Estim Creat Clear Calc 35.38 L, Est GFR (MDRD) Non-Af 42 L, BUN/Creatinine Ratio 16.9, Glucose 86, Calcium 10.7 Physical Exam Const alert Constitutional Narrative: confused, flat affect General Appearance: cooperative HEENT normocephalic, head/scalp atraumatic, hearing grossly normal bilaterally, moist oral mucous membranes and oropharynx normal Eyes EOMs intact bilaterally Neck supple and no JVD Resp normal respiratory effort, normal air movement, no retractions, no use of accessory muscles and clear to auscultation bilaterally Cardio regular rate, regular rhythm, S1 normal heart sound, S2 normal heart sound and no murmurs GI normal to inspection, nondistended, normoactive bowel sounds, soft to palpation and non-tender Extremity normal to inspection, full ROM, normal capillary refill, no clubbing, cyanosis or edema and no calf tenderness General Extremity: no tenderness to palpation of joints or extremities Skin General Skin Exam: no breakdown Neuro no focal motor deficits and no sensory deficits noted Sensorium / Orientation: awake and alert Motor Exam: general weakness Psych Psych Narrative: confused Mood & Affect: flat affect Assessment & Plan Assessment/Plan (1) Dementia: PLAN: Plan #Debility and weakness due to dementia PT/OT on board. Fall precautions. #Hypothyroidism: on synthroid #Hypotension:resolved. #Hypertension: on metoprolol and amlodipine. #Atrial fibrillation: on metoprolol. Due to concerns about frequent mechanical falls, eliquis held. DVT prophylaxis: on lovenox Code status: DNRCCA no intubation. Disposition: awaiting placement in assisted living, likely tomorrow. Charges/Coding Visit Charges Inpatient E&M: 73082 Subs Hosp L2
--- NOTE | 2025-03-09 15:19 | CASEMGMT ---
Discharge Planning A list of?HH providers including quality and resource use data and consistent with the patient's preferred geographic region, medical needs, and insurance network was created in [facility] Guide.? This list was provided to the SHANON Spnecer Discharge Planning Asst.
--- NOTE | 2025-03-09 16:01 | CASEMGMT ---
Social Work SW did not receive a call back from [facility] on what other home health care agencies to consider. SW does have a list for , called however he does not answer. SW will follow up Saturday w/[facility] and for other C options and make referral, let [facility] know pt has a walker, confirm the furniture has been delivered and set up an ambulance to take pt to [facility] once discharged. ADRIAN Meza
[2025-03-09 16:21] VITALS: BP 102/63; PULSE 54; RESP 16; TEMP 36.5; O2SAT 98
[2025-03-09 19:59] VITALS: BP 118/54; PULSE 63; RESP 16; TEMP 36.5; O2SAT 98
[2025-03-09] MEDS: MELATONIN 3 MG TABLET PO (20:03)
[2025-03-10 05:08] VITALS: BP 112/53; PULSE 99; RESP 18; TEMP 36.3; O2SAT 97
[2025-03-10 07:18] LABS: Hematocrit 38.9 % (37-47); Hemoglobin 12.9 g/dL (12.0-15.0); Immature Granulocytes Count 0.160 X10^3/uL (0.0-0.0); Mean Corp Hgb Conc 33.2 g/dL (32-36); Mean Corpuscular Volume 94.2 fL (81-99); Mean Platelet Vol. 11.3 fl (6.2-12.0); NRBC Flagged by Analyzer 0 % (0-5); Platelet Count 215 K/mm3 (150-450); RBC Distribution Width CV 15.8 % (11.6-14.6); RBC Distribution Width SD 54.3 fl (35.1-43.9); Red Blood Count 4.13 M/mm3 (4.2-5.4); White Blood Count 7.4 K/mm3 (4.4-11.0)
[2025-03-10 07:54] LABS: Anion Gap 11 (5-15); BUN 24 mg/dL (4-19); BUN/Creat Ratio 20.4 RATIO (10-20); Calcium,Total 10.6 mg/dL (7.6-11.0); Carbon Dioxide 27.7 mmol/L (21.0-32.0); Chloride 98 mmol/L (98-108); Estimated Creatinine Clearance 38.70 ml/min (50-250); Glucose 93 mg/dL (70-99); Potassium 3.9 mmol/L (3.3-5.1)
[2025-03-10 10:40] VITALS: BP 111/66; PULSE 66; RESP 18; TEMP 36.3; O2SAT 99
[2025-03-10] MEDS: Ensure Plus High Protein 120 ML LIQUID PO ×2 (10:43→12:38)
[2025-03-10 10:44] VITALS: BP 111/66; PULSE 66
[2025-03-10] MEDS: Metoprolol(XL)Succ 25 MG Tablet PO (10:44)
[2025-03-10] MEDS: Memantine Hydrochloride 5 MG Tablet PO (10:44)
--- NOTE | 2025-03-10 11:11 | CASEMGMT ---
Social Work- SW called [facility] to collaborate on d/c planning. SW called pt spouse and left a message. Pt spouse arrived at hospital. SW met with pt spouse and discussed C referral. [facility] requested. [facility] notified of referral request. SW provided education on transportation cost; pt spouse agreeable. SW notified [facility] of transportation request for a time close to 13:00 per AL. SHANON provided PCP list and updated that transport was set for 13:00. BINA Goff
--- NOTE | 2025-03-10 11:30 | CASEMGMT ---
Discharge Planning Wheelchair transport scheduled with [facility] for 1p. SW updated. Francy Spencer DC Planning Asst.
--- NOTE | 2025-03-10 11:34 | CASEMGMT ---
Addendum entered by Francy Spencer 03/10/25 12:26: [facility] has accepted with SOC date 03/11/25. DC Instructions sent via [facility]. Original Note: Discharge Planning HH referral sent via [facility] to [facility]. Francy Spencer DC Planning Asst.
--- NOTE | 2025-03-10 11:48 | CASEMGMT ---
Addendum entered by Michelle Rock 03/10/25 13:01: SHANON received notice that [facility] accepted with SOC 03/11. SHANON called Ced at [place] [facility] to update and confirm 13:00 transport time. BINA Goff Original Note: Social Work Pt furniture has been delivered to AL. All AL paperwork in place. Physician updated and pt is ready for discharge today.?Transportation arranged with [facility] for 13:00 pickup via wheelchair van.? SHANON met with pt spouse and they are agreeable to discharge plan as stated above.? Pt spouse and bedside nurse notified of discharge time. Disposition:[facility]; memory care with [facility] referral BINA Goff
[2025-03-10 12:13] VITALS: BP 108/78; PULSE 62; RESP 16; TEMP 36.6; O2SAT 95
--- NOTE | 2025-03-10 12:14 | DCINST_ITS ---
Discharge Instructions DC O2, CPAP, BIPAP needs Home O2 Discharge instructions: No Dressing / Incision Discharge Activity: Return to Normal Activity Weight Bearing Status: Weight bearing as tolerated Dressing / Incision Call your doctor if you observe: Fever of 101 or Higher, Shortness of breath, Dizziness, Swelling in the ankles and Chest pain Follow Up Care Test Results: Test results from this visit will be discussed in further detail at your follow- up appointment, if applicable. Discharge Plan Admission Admit Date/Time: 03/06/25 10:24 Primary Reason for Your Visit: debility and frequent falls Attending Provider: Ketty Pradhan Primary Care Provider: Yaneth Bernal Consulting Providers: Douglas Welsh Instructions Patient Instructions: ED FALL-from [facility] Discharge Orders/Prescriptions Prescriptions: Continued metoprolol succinate [Toprol XL] 50 MG tablet extended release 24 hr 25 mg PO DAILY citalopram 10 mg tablet 10 mg PO DAILY Patient Comments: [NO ORIGINAL SIG] famotidine 40 mg tablet 40 mg PO DAILY Patient Comments: [NO ORIGINAL SIG] amlodipine 2.5 mg tablet 2.5 mg PO DAILY Patient Comments: [NO ORIGINAL SIG] pravastatin 20 mg tablet 20 mg PO DAILY Patient Comments: [NO ORIGINAL SIG] memantine 5 mg tablet 5 mg PO BID Patient Comments: [NO ORIGINAL SIG] Fergon 225 mg (27 mg iron) tablet 225 mg PO DAILY Eliquis 5 mg tablet 5 mg PO BID Patient Comments: [NO ORIGINAL SIG] Tirosint-Daxa 37.5 mcg/mL solution 37.5 mcg PO DAILY Referrals / Follow Up: Yaneth Bernal MD [Primary Care Provider, Internal Medicine] - Within 1 Week Disposition Disposition (needs filled in before D/C Order can be placed): Assisted Living
--- NOTE | 2025-03-10 12:14 | PCM.DC.SUM ---
Providers Date of Admission: 03/06/25 Date of Discharge: 03/10/25 Primary Care Physician: Dr. Yaneth Bernal MD Reason For Visit: FALLS Diagnosis Discharge Diagnosis (1) Dementia: Status: Acute Code(s): F03.90 - Unspecified dementia, unspecified severity, without behavioral disturbance, psychotic disturbance, mood disturbance, and anxiety Plan #Debility and weakness due to dementia PT/OT on board. Fall precautions. #Hypothyroidism: on synthroid #Hypotension:resolved. #Hypertension: on metoprolol and amlodipine. #Atrial fibrillation: on metoprolol. Due to concerns about frequent mechanical falls, eliquis held. DVT prophylaxis: on lovenox Code status: DNRCCA no intubation. Disposition: awaiting placement in assisted living, likely tomorrow. Medications at Discharge Home Medications metoprolol succinate 50 mg tablet,extended release 24 hr (Toprol XL) 25 mg PO DAILY heart 12/10/16 amlodipine 2.5 mg tablet 2.5 mg PO DAILY bp 02/27/25 apixaban 5 mg tablet (Eliquis) 5 mg PO BID blood thinner 02/27/25 citalopram 10 mg tablet 10 mg PO DAILY depression 02/27/25 famotidine 40 mg tablet 40 mg PO DAILY gerd 02/27/25 ferrous gluconate 225 mg (27 mg iron) tablet (Fergon) 225 mg PO DAILY anemia 02/27/25 memantine 5 mg tablet 5 mg PO BID dementia 02/27/25 pravastatin 20 mg tablet 20 mg PO DAILY cholesterol 02/27/25 levothyroxine 37.5 mcg/mL oral solution (Tirosint-Daxa) 37.5 mcg PO DAILY thyroid 03/06/25 Hospital Course Operations None Procedures None Summary of Care Provided Minutes Spent on Discharge: 42 Hospital Course: Patient is an 84-year-old female with past medical history as outlined was admitted with complaint of weakness and progressive debility. She had been having frequent falls and could not care for her anymore. She had not been compliant with her medications at home. She was therefore brought to the ED for placement as family could not care for her at home. She was admitted to be managed for debility and weakness with failure to thrive. She was hydrated with IV fluid with PT OT worked with patient. She was deemed as benefit from from assisted living. She was therefore discharged to [facility] on 03/10/2025. She is follow-up with her primary care doctor within 1 to 2 weeks. Patient seen and examined prior to discharge. She had no active complaints and determined to be confused. Review of systems otherwise negative. Labs and vitals reviewed. Home medication reviewed and reconciled. Of note I did discuss with case management about my suspicions for going to an assisted living in light of her confusion and debility. They assured me that patient was going to [facility] assisted living which was more like a total care unit and so she would get the requested help that she needed there. They are already discussed with [facility] who are willing to accept the patient to care for her. Physical Exam Const alert and no apparent distress Constitutional Narrative: confused, flat affect General Appearance: cooperative and comfortable HEENT normocephalic, head/scalp atraumatic, hearing grossly normal bilaterally, moist oral mucous membranes and oropharynx normal Mouth: oral and palatal mucosa normal Eyes EOMs intact bilaterally and conjunctivae normal Neck supple and no JVD Resp normal respiratory effort, normal air movement, no retractions, no use of accessory muscles and clear to auscultation bilaterally Cardio regular rate, regular rhythm, S1 normal heart sound, S2 normal heart sound and no murmurs GI normal to inspection, nondistended, normoactive bowel sounds, soft to palpation and non-tender Extremity normal to inspection, full ROM, normal capillary refill, no clubbing, cyanosis or edema and no calf tenderness General Extremity: no tenderness to palpation of joints or extremities Skin no rashes or lesions noted General Skin Exam: no breakdown Neuro oriented x3, no focal motor deficits and no sensory deficits noted Sensorium / Orientation: awake and alert Motor Exam: general weakness Psych cooperative Psych Narrative: confused Mood & Affect: flat affect Weight / BMI Weight Weight: 175 lb 15.991 oz Body Mass Index (BMI) 29.2 ABG / Lab / Microbiology Data 03/10/25 06:51 03/10/25 06:51 Laboratory: Laboratory Results - last 24 hr 03/10/25 06:51: WBC 7.4, RBC 4.13 L, Hgb 12.9, Hct 38.9, MCV 94.2, MCH 31.2, MCHC 33.2, RDW Std Deviation 54.3 H, RDW Coeff of Isa 15.8 H, Plt Count 215, MPV 11.3, Immature Gran % (Auto) 2.200 H, Neut % (Auto) 63.4, Lymph % (Auto) 22.9, [place] % (Auto) 7.3, Eos % (Auto) 3.0, Baso % (Auto) 1.2 H, Absolute Neuts (auto) 4.7, Absolute Lymphs (auto) 1.70, Nucleated RBC % 0, Sodium 137, Potassium 3.9, Chloride 98, Carbon Dioxide 27.7, Anion Gap 11, BUN 24 H, Creatinine 1.17, Estim Creat Clear Calc 38.70 L, Est GFR (MDRD) Non-Af 47 L, BUN/Creatinine Ratio 20.4 H, Glucose 93, Calcium 10.6 D/C Instructions Discharge Activity: Return to Normal Activity Weight Bearing Status: Weight bearing as tolerated Call your doctor if you observe: Fever of 101 or Higher, Shortness of breath, Dizziness, Swelling in the ankles and Chest pain DC O2, CPAP, BIPAP Needs Home O2 Discharge instructions: No Meaningful Use Info Meaningful Use Meaningful Use Diagnoses (Choose all that apply): None applicable Discharge Plan Admission Admit Date/Time: 03/06/25 10:24 Primary Reason for Your Visit: debility and frequent falls Attending Provider: Ketty Pradhan Primary Care Provider: Yaneth Bernal Consulting Providers: Douglas Welsh Instructions Patient Instructions: ED FALL-from [facility] Discharge Orders/Prescriptions Prescriptions: Continued metoprolol succinate [Toprol XL] 50 MG tablet extended release 24 hr 25 mg PO DAILY citalopram 10 mg tablet 10 mg PO DAILY Patient Comments: [NO ORIGINAL SIG] famotidine 40 mg tablet 40 mg PO DAILY Patient Comments: [NO ORIGINAL SIG] amlodipine 2.5 mg tablet 2.5 mg PO DAILY Patient Comments: [NO ORIGINAL SIG] pravastatin 20 mg tablet 20 mg PO DAILY Patient Comments: [NO ORIGINAL SIG] memantine 5 mg tablet 5 mg PO BID Patient Comments: [NO ORIGINAL SIG] Fergon 225 mg (27 mg iron) tablet 225 mg PO DAILY Eliquis 5 mg tablet 5 mg PO BID Patient Comments: [NO ORIGINAL SIG] Tirosint-Daxa 37.5 mcg/mL solution 37.5 mcg PO DAILY Referrals / Follow Up: Yaneth Bernal MD [Primary Care Provider, Internal Medicine] - Within 1 Week Disposition Disposition (needs filled in before D/C Order can be placed): Assisted Living Charges/Coding Visit Charges Inpatient E&M: 54591 Disch Hosp >30min
--- NOTE | 2025-03-10 13:18 | PHA.DC.MR.R ---
Pharmacy [facility] Reconciliation Pharmacy Service has performed discharge medication reconciliation for this patient. The patient's discharge medication list was reviewed for discrepancies and discrepancies were resolved. Medications at Discharge Home Medications metoprolol succinate 50 mg tablet,extended release 24 hr (Toprol XL) 25 mg PO DAILY heart 12/10/16 amlodipine 2.5 mg tablet 2.5 mg PO DAILY bp 02/27/25 apixaban 5 mg tablet (Eliquis) 5 mg PO BID blood thinner 02/27/25 citalopram 10 mg tablet 10 mg PO DAILY depression 02/27/25 famotidine 40 mg tablet 40 mg PO DAILY gerd 02/27/25 ferrous gluconate 225 mg (27 mg iron) tablet (Fergon) 225 mg PO DAILY anemia 02/27/25 memantine 5 mg tablet 5 mg PO BID dementia 02/27/25 pravastatin 20 mg tablet 20 mg PO DAILY cholesterol 02/27/25 levothyroxine 37.5 mcg/mL oral solution (Tirosint-Daxa) 37.5 mcg PO DAILY thyroid 03/06/25
--- NOTE | 2025-03-10 13:45 | NURSING ---
report given to Dottie at [facility]
== END 2025-03-10 13:39 | disposition home health service (06) ==
LOC: ED 10:37 → MS3 10:52
PROVIDERS: Emergency Provider Student in an Organized Health Care Education/Training Program; PCP Internal Medicine; Visit Provider Student in an Organized Health Care Education/Training Program
DX: R53.1 Weakness (principal); F03.90 Unspecified dementia, unspecified severity, without behavioral disturbance, psychotic disturbance, mood disturbance, and anxiety; I48.91 Unspecified atrial fibrillation; R62.7 Adult failure to thrive; E87.6 Hypokalemia; Z79.01 Long term (current) use of anticoagulants; R53.81 Other malaise; Z87.891 Personal history of nicotine dependence; I10 Essential (primary) hypertension; E03.9 Hypothyroidism, unspecified; Z79.890 Hormone replacement therapy; R29.6 Repeated falls; Z79.899 Other long term (current) drug therapy; Z91.148 Patient's other noncompliance with medication regimen for other reason
CPT/HCPCS: 36415; 70450; 72125; 80048; 83735; 85025; 93005; 96360; 96372; 97162; 97165; 97530; 97535; 99221; 99285; A4216; G0378

== ENCOUNTER 2025-03-16 09:01 | Emergency (ER) | payer MEDICARE, OTHER, SELFPAY ==
[2025-03-16] VITALS (24 sets, daily range): BP systolic 66–157; BP diastolic 46–143; PULSE 57–108; RESP 11–25; TEMP 35.8–36.6; O2SAT 93–100; BMI 31.8
--- NOTE | 2025-03-16 10:00 | EKG12_ITS ---
Test Reason : RIGHT SIDED EKG Blood Pressure : */* mmHG Vent. Rate : 83 BPM Atrial Rate : * BPM P-R Int : * ms QRS Dur : 96 ms QT Int : 396 ms P-R-T Axes : * -13 258 degrees QTcB Int : 465 ms Atrial fibrillation Anterolateral infarct , age undetermined Abnormal ECG Confirmed by Samuel Trimble ([id number]), video editor FELIX BENITEZ ([id number]) on 03/19/2025 8:17:47 AM Referred By: Confirmed By: Samuel Trimble
--- NOTE | 2025-03-16 10:00 | RAD_ITS ---
PROCEDURE: FOREARM 2 VIEWS; WRIST MIN 3 VIEWS; HAND MIN 3 VIEWS 03/16/2025 REASON FOR EXAM: Clinical history of mechanical fall TECHNIQUE: Procedure Code: RADFA; RADWR; KIM Modality: DX Procedure: FOREARM 2 VIEWS; WRIST MIN 3 VIEWS; HAND MIN 3 VIEWS COMPARISON: None available. FINDINGS: Acute fracture of the right distal radius with mild dorsal angulation. No fracture or dislocation in the right hand. The ulna appears intact. Limited radiographs of the elbow demonstrate no definite fracture or elbow joint effusion. Scaphotrapeziotrapezoidal osteoarthritis. Degenerative changes of multiple interphalangeal joints. Diffuse osteopenia. Soft tissue swelling at the wrist. RAD/Wrist min 3 Views IMPRESSION: Right distal radius fracture with mild dorsal angulation. Soft tissue swelling at the wrist. Diffuse osteopenia. Reading Location: [id number]
--- NOTE | 2025-03-16 10:00 | RAD_ITS ---
PROCEDURE: FOREARM 2 VIEWS; WRIST MIN 3 VIEWS; HAND MIN 3 VIEWS 03/16/2025 REASON FOR EXAM: Clinical history of mechanical fall TECHNIQUE: Procedure Code: RADFA; RADWR; KIM Modality: DX Procedure: FOREARM 2 VIEWS; WRIST MIN 3 VIEWS; HAND MIN 3 VIEWS COMPARISON: None available. FINDINGS: Acute fracture of the right distal radius with mild dorsal angulation. No fracture or dislocation in the right hand. The ulna appears intact. Limited radiographs of the elbow demonstrate no definite fracture or elbow joint effusion. Scaphotrapeziotrapezoidal osteoarthritis. Degenerative changes of multiple interphalangeal joints. Diffuse osteopenia. Soft tissue swelling at the wrist. RAD/Forearm 2 Views IMPRESSION: Right distal radius fracture with mild dorsal angulation. Soft tissue swelling at the wrist. Diffuse osteopenia. Reading Location: [id number]
--- NOTE | 2025-03-16 10:00 | RAD_ITS ---
PROCEDURE: CHEST 1 VIEW 03/16/2025 REASON FOR EXAM: COUGH TECHNIQUE: Frontal view of the chest. COMPARISON: 02/27/2025 FINDINGS: Lungs: Lungs clear of pneumonia and congestion. Elevation of the right hemidiaphragm. Mild discoid atelectasis, left lower lobe Pleura: No pleural effusions, thickening, or pneumothorax. Heart: Normal in size and configuration. Mediastinum/Nina: Unremarkable. Great vessels: Atherosclerotic and tortuous aorta Bones/soft tissues: Unremarkable. RAD/Chest 1 View IMPRESSION: Mild discoid atelectasis, left lower lobe. Elevation of the right hemidiaphragm. Otherwise no active cardiopulmonary disease. Reading Location: [place] [id number]
--- NOTE | 2025-03-16 10:00 | RAD_ITS ---
PROCEDURE: FOREARM 2 VIEWS; WRIST MIN 3 VIEWS; HAND MIN 3 VIEWS 03/16/2025 REASON FOR EXAM: Clinical history of mechanical fall TECHNIQUE: Procedure Code: RADFA; RADWR; KIM Modality: DX Procedure: FOREARM 2 VIEWS; WRIST MIN 3 VIEWS; HAND MIN 3 VIEWS COMPARISON: None available. FINDINGS: Acute fracture of the right distal radius with mild dorsal angulation. No fracture or dislocation in the right hand. The ulna appears intact. Limited radiographs of the elbow demonstrate no definite fracture or elbow joint effusion. Scaphotrapeziotrapezoidal osteoarthritis. Degenerative changes of multiple interphalangeal joints. Diffuse osteopenia. Soft tissue swelling at the wrist. RAD/Hand Min 3 Views IMPRESSION: Right distal radius fracture with mild dorsal angulation. Soft tissue swelling at the wrist. Diffuse osteopenia. Reading Location: [id number]
--- NOTE | 2025-03-16 10:05 | EX.ED.UPPERE ---
HPI History of Present Illness Chief Complaint: Upper Extremity Injury Narrative Narrative: Chief complaint and HPI: 84-year-old female presents for evaluation of right arm swelling after a mechanical fall. Patient resides at assisted living facility. She has a past medical history of dementia-alert and oriented x 1 at baseline and frequent falls. Patient unable to provide history given her baseline mentation. Therefore history given by family members. Family states that they received a call from the assisted facility stating that the patient had a mechanical fall. Unknown if it was witnessed. She has swelling to the distal right arm with ecchymosis. It was reported that she also has had a cough. Unknown if she hit her head. She is on blood thinners for atrial fibrillation. Family states that the patient never complains of any symptoms. Review of systems: See HPI Medications: As listed on the chart Allergies: As listed on the chart PFSH: Per chart Vital signs: As listed on the chart. Reviewed. Physical exam: Gen: A&O x1-patient's reported baseline, NAD Head: Normocephalic, atraumatic Eyes: No sclera icterus, conjunctiva clear, PERRL, EOMI ENT: TMs clear BL, mildly dry mucous membranes, face atraumatic without tenderness Neck: Trachea midline, No JVD, Nontender CV: Regular rate, irregular regular rhythm, no murmurs, no chest wall TTP Resp: Lungs CTA BL, no w/r/c, + cough GI: Abd soft, non-distended, non-tender, no r/r/g Musc: Full ROM, no deformity, patient has swelling and ecchymosis to the distal forearm/wrist/hand of the right upper extremity-mildly tender to palpation, radial pulse +2 bilaterally, good capillary refill, bilateral lower extremities unremarkable, no midline spinal tenderness, no bony step-off Skin: Warm, dry, intact Psych: Cooperative, appropriate mood and affect [facility] Medical History (Updated 03/16/25 @ 14:[address] Armani Greene DO) Benign essential microscopic hematuria Unsteadiness on feet Pain in left knee Chronic instability of knee, left knee Unspecified osteoarthritis, unspecified site Gastro-esophageal reflux disease without esophagitis Ventricular premature depolarization Longstanding persistent atrial fibrillation Sensorineural hearing loss, bilateral Alzheimer's disease with late onset Mixed hyperlipidemia Vitamin B12 deficiency anemia, unspecified Benign neoplasm of connective and other soft tissue, unspecified Kidney disease Hypertension Dementia Home Medications ?Medication ?Instructions ?Recorded ?Last Taken ?Type metoprolol succinate 50 mg 25 mg PO DAILY heart 12/10/16 12/10/16 History tablet,extended release 24 hr (Toprol XL) amlodipine 2.5 mg tablet 2.5 mg PO DAILY bp 02/27/25 Unknown History famotidine 40 mg tablet 40 mg PO DAILY gerd 02/27/25 Unknown History memantine 5 mg tablet 5 mg PO BID dementia 02/27/25 Unknown History pravastatin 20 mg tablet 20 mg PO DAILY cholesterol 02/27/25 Unknown History acetaminophen 325 mg capsule 650 mg PO Q6H PRN fever or pain 03/16/25 Unknown History cephalexin 500 mg capsule 500 mg PO BID 7 days #14 caps 03/16/25 Unknown Rx food supplemt, lactose-reduced 120 ml PO TID 03/16/25 Unknown History (Ensure oral liquid) levothyroxine 112 mcg tablet 112 mcg PO DAILY 03/16/25 Unknown History melatonin 3 mg capsule 3 mg PO QHS 03/16/25 Unknown History nystatin 100,000 unit/gram topical 1 applic topical BID 03/16/25 Unknown History powder Allergy/AdvReac Type Severity Reaction Status Date / Time estrogens, conjugated (From Allergy Itching Verified 03/16/25 09:12 Premarin) medroxyprogesterone Allergy Unknown Verified 03/16/25 09:12 nitrofurantoin (From Allergy Itching Verified 03/16/25 09:12 Furadantin) sulfamethoxazole (From Allergy Swelling Verified 03/16/25 09:12 Bactrim) trimethoprim (From Bactrim) Allergy Swelling Verified 03/16/25 09:12 Family History unable to obtain Social History Smoking Status: Former smoker EXAM Physical Exam Const Vital Signs: 03/16/25 09:03 03/16/25 09:09 Temperature 97.0 F L 97.0 F L Temperature Source Oral Oral Pulse Rate 69 108 H Respiratory Rate 20 H 25 H Blood Pressure 117/55 L 139/106 H Blood Pressure Mean 75 117 Pulse Ox 93 94 Oxygen Delivery Method Room Air Room Air MDM MDM MDM Narrative Medical decision making narrative: 84-year-old female presents for evaluation of right arm swelling after a mechanical fall. Patient resides at assisted living facility. She has a past medical history of dementia-alert and oriented x 1 at baseline and frequent falls. Patient unable to provide history given her baseline mentation. Therefore history given by family members. Family states that they received a call from the assisted facility stating that the patient had a mechanical fall. Unknown if it was witnessed. She has swelling to the distal right arm with ecchymosis. It was reported that she also has had a cough. Unknown if she hit her head. She is on blood thinners. On chart review, patient was seen in our emergency department for frequent falls several days ago. She was admitted for placement. Per discharge summary on 03/10 she was deemed as benefit from assisted living. She is discharged to assisted living facility. Given patient's frequent falls as well as baseline mentation of alert and oriented x 1 I question if patient needs to be in a memory care unit instead of assisted living. Will consult social work. Social work spoke with Elliott. Patient is actually in a memory care unit and not assisted living. Differential diagnosis includes but is not limited to failure to thrive, electrolyte abnormality, dehydration, pneumonia, viral illness, fracture, contusion, intracranial bleed. NS bolus and morphine ordered. Laboratory workup ordered including imaging. CT of the head shows no acute traumatic injury. CT of the cervical spine without any acute traumatic injury. X-ray of the right wrist, hand, forearm was personally reviewed and interpreted by me, ED physician. Distal radius fracture. Radiology in agreement. Patient will warrant splint. CBC without leukocytosis or anemia. Platelets unremarkable. CMP shows renal insufficiency with a creatinine of 1.25. Patient has a history of this in the past. Chronic transaminitis. Patient not having any abdominal pain. Troponin 57. Will obtain delta. Unable to obtain the patient is having chest pain. May be her baseline. COVID, flu, RSV negative. UA positive for UTI. Urine culture sent. Previous urine cultures susceptible to Rocephin. This was ordered. Repeat troponin 49. Given her multiple comorbidities and patient being in a memory care unit, would not want further treatment for cardiac workup. I updated the as well as Elliott about all the results. Everyone is comfortable with her discharging back to the memory care unit. She is mostly wheelchair-bound per both reports therefore we did not ambulate the patient. Patient did drop her saturations after receiving morphine and while sleeping, however this improved. Will prescribe Keflex for her UTI. Follow-up with PCP and orthopedic physician. Everyone was made aware that the splint needs to remain on at all times, cannot get wet, and that she is nonweightbearing to that upper extremity. Splint placement Indication: Right distal radial fracture Procedure: Immobilization was performed for the fracture by placing a splint. I used arm sleeve, Webril, Ortho-Glass, and Kam bandages and a sugar-tong splint. The extremity's neurovascular status was re-checked and was unchanged from the pre-procedure exam. The patient tolerated the procedure without complications. EKG: Interpreted by me/EM physician: EKG shows A-fib. Heart rate 83. No acute ischemic changes. Diagnostic: Interpreted by me/EM physician: Chest x-ray was personally viewed and interpreted by me, ED physician. No pneumonia, large effusion, cardiomegaly, pneumothorax. Radiology in agreement. This was compared to previous chest x-ray which is similar. Per radiology mild discoid atelectasis of the left lower lobe. Elevation of the right hemidiaphragm. Impression: 1. Closed right distal radial fracture, status post splint 2. UTI 3. Frequent falls 4. Dementia Discharge Plan Triage Chief Complaint: Upper Extremity Injury ED Provider: Armani Greene Dx/Rx/DC Orders Clinical Impression: Dementia, Falls frequently, UTI (urinary tract infection), Distal radius fracture Instructions: UTIs, ED Fracture, Upper Extremity, ED Fiberglass Splint Care Prescriptions: New cephalexin 500 mg capsule 500 mg PO BID 7 Days Qty: 14 0RF No Action metoprolol succinate [Toprol XL] 50 MG tablet extended release 24 hr 25 mg PO DAILY acetaminophen 325 mg capsule 650 mg PO Q6H PRN (Reason: fever or pain) Ensure Liquid 120 ml PO TID levothyroxine 112 mcg tablet 112 mcg PO DAILY melatonin 3 mg capsule 3 mg PO QHS nystatin 100,000 unit/gram powder 1 applic topical BID famotidine 40 mg tablet 40 mg PO DAILY Patient Comments: [NO ORIGINAL SIG] amlodipine 2.5 mg tablet 2.5 mg PO DAILY Patient Comments: [NO ORIGINAL SIG] pravastatin 20 mg tablet 20 mg PO DAILY Patient Comments: [NO ORIGINAL SIG] memantine 5 mg tablet 5 mg PO BID Patient Comments: [NO ORIGINAL SIG] Primary Care Provider: Yaneth Bernal Referrals: Yaneth Bernal MD [Primary Care Provider, Internal Medicine] - 3-5 Days Mahesh Garcia DO [Med Staff - Active Staff, Orthopedics] - 3-5 Days Activity Restrictions/Additional Instructions: She has a urinary tract infection. She received her first dose of antibiotics here in the emergency department. Start tomorrow. She has a broken right wrist. She is not weightbearing to the right upper extremity. Splint must remain on at all times. Cannot get wet. Recommend moderating her her given her frequent falls. Return back to ED if symptoms change or worsen. Follow-up with PCP and orthopedics. Print Language: Kenyan Disposition Disposition: Home, Self Care
[2025-03-16] MEDS: 0.9% Normal Saline (1000mL) 1,000 ML 1000 ML IV (10:48)
[2025-03-16 11:00] LABS: Hematocrit 37.4 % (37-47); Hemoglobin 12.4 g/dL (12.0-15.0); Immature Granulocytes Count 0.050 X10^3/uL (0.0-0.0); Mean Corp Hgb Conc 33.2 g/dL (32-36); Mean Corpuscular Volume 93.5 fL (81-99); Mean Platelet Vol. 11.6 fl (6.2-12.0); NRBC Flagged by Analyzer 0 % (0-5); Platelet Count 197 K/mm3 (150-450); RBC Distribution Width CV 15.8 % (11.6-14.6); RBC Distribution Width SD 54.4 fl (35.1-43.9); Red Blood Count 4.00 M/mm3 (4.2-5.4); White Blood Count 8.5 K/mm3 (4.4-11.0)
--- NOTE | 2025-03-16 11:07 | CT_ITS ---
PROCEDURE: BRAIN/HEAD WITHOUT CONTRAST; SPINE CERVICAL WITHOUT CONTRAS 03/16/2025 REASON FOR EXAM: Mechanical fall TECHNIQUE: Procedure Code: CTBR; CTSPC Modality: CT Procedure: BRAIN/HEAD WITHOUT CONTRAST; SPINE CERVICAL WITHOUT CONTRAS Coronal and Sagittal reconstruction series were provided. One or more dose reduction techniques were used (e.g., Automated exposure control, adjustment of the mA and/or kV according to patient size, use of iterative reconstruction technique. RADIATION DOSE SUMMARY: DLP: 1985.98 mGycm COMPARISON: CT head and cervical spine 03/06/2025 FINDINGS: Motion artifact mildly limits evaluation. This is more pronounced in the cervical spine. CT HEAD: No acute hemorrhage. No acute infarct. Patchy periventricular and subcortical white matter hypodensities compatible with chronic microvascular ischemic changes. No significant mass effect or brain herniation. Global cerebral volume loss with compensatory enlargement of the CSF spaces. No hydrocephalus. No extra-axial fluid collection. The basal cisterns are patent. The mastoid air cells are clear. The paranasal sinuses are predominantly clear. Right ocular lens replacement. The calvarium appears intact. Atherosclerotic calcification of the carotid siphons. CT CERVICAL SPINE: Mildly exaggerated cervical lordosis. The atlantooccipital and atlantoaxial joints appear normally aligned. The atlas and axis are intact. The remaining cervical vertebral bodies are normal in height. The cervical vertebral bodies are normal in alignment.There is no evidence of focal lytic or sclerotic lesion in the cervical spine. There is no prevertebral soft tissue swelling. Multilevel cervical spondylosis. [id number] bilateral neural foraminal stenosis. There is up to moderate spinal canal stenosis. CT/Spine Cervical without Contras IMPRESSION: 1. Motion artifact limits evaluation. 2. No CT evidence of acute intracranial hemorrhage, infarct, or significant mas s effect. 3. No acute fracture or dislocation in the cervical spine. Reading Location: [id number]
[2025-03-16 11:33] LABS: Troponin T High Sensitivity 57 ng/L (<=14)
[2025-03-16 11:36] LABS: AST(SGOT) 80 U/L (<=31); Alanine Aminotransfer ALT/SGPT 49 U/L (<=34); Albumin, Serum 4.5 g/dL (3.4-4.8); Alkaline Phosphatase 103 U/L (35-104); Anion Gap 12 (7-18); BUN 36 mg/dL (4-19); BUN/Creat Ratio 29.0 RATIO (10-20); Calcium,Total 10.3 mg/dL (7.6-11.0); Carbon Dioxide 26.0 mmol/L (20.0-29.0); Chloride 103 mmol/L (96-106); Estimated Creatinine Clearance 37.80 ml/min (50-250); Globulin 2.9 g/dL (2.2-4.2); Glucose 101 mg/dL (70-99); Potassium 3.7 mmol/L (3.5-5.1)
[2025-03-16 11:47] LABS: Mucous, Urine 0 SEEN /hpf (<or=2+); Red Blood Cells-Urine 0 SEEN /hpf (0-5); Squamous Epithelial Cells - UA 0 SEEN /hpf (5-10)
[2025-03-16 11:51] LABS: Color, Urine Yellow (Yellow); Glucose, Dipstick Normal (Normal); Ketone-Dipstick Negative (Negative); Leukocyte Esterase-Dipstick 25 /ul (Negative); Nitrite-Dipstick Positive (Negative); Occult Blood-Urine 50 /ul (Negative); Protein-Dipstick 30 mg/dl (Negative); Specific Gravity, Urine 1.025 (1.002-1.030); Urine Bilirubin Dipstick Negative (Negative)
--- NOTE | 2025-03-16 12:40 | CM.ED ---
Social work Reason for referral: discharge planning Referral source: Dr Ramona CLAUDIO received consult for patient due to patient's need for a higher level of care. Reportedly, patient was discharged from [facility] on 03/10/25 to [facility] with [facility] to start on 03/11. Patient presented today after a fall and Dr Workman stated patient would be a better fit for the memory care unit due to patient only being A+Ox1. When SW went to talk with patient and family, no family was present; this was as of both 1100 and 1215. SHANON called patient's , Avila, and received a return call at [phone]. Avila stated waiting in the ED waiting room rather than being in patient's room. Avila stated patient was in [facility]'s memory care unit. SHANON called Elliott (ph: [phone]) to verify. [facility] executive legal secretary answered the phone, stating all of nursing was busy with their patient's lunch time, but clarified that patient was indeed in the memory care unit. This information was passed along to Dr Greene. Jayshree Weldon, CAREER PORTALS TEACHER, [employer]
[2025-03-16 13:25] LABS: Troponin T High Sens 2 HR 49 ng/L (<=14)
--- NOTE | 2025-03-16 17:59 | ED.RN ---
Nurse to nurse report given to Nereida. All questioned answered.
== END 2025-03-16 18:00 | disposition skilled nursing facility (03) ==
PROVIDERS: Emergency Provider Surgery; PCP Internal Medicine; Visit Provider Surgery
DX: S52.501A Unspecified fracture of the lower end of right radius, initial encounter for closed fracture (principal); G30.1 Alzheimer's disease with late onset; F02.80 Dementia in other diseases classified elsewhere, unspecified severity, without behavioral disturbance, psychotic disturbance, mood disturbance, and anxiety; W18.30XA Fall on same level, unspecified, initial encounter; Y92.129 Unspecified place in nursing home as the place of occurrence of the external cause; N39.0 Urinary tract infection, site not specified; I10 Essential (primary) hypertension; R29.6 Repeated falls; Z79.899 Other long term (current) drug therapy; Z87.891 Personal history of nicotine dependence
CPT/HCPCS: 29125; 70450; 71045; 72125; 73090; 73110; 73130; 80053; 81001; 84484; 85025; 87086; 87088; 87186; 87631; 93005; 96361; 96365; 96375; 99285; A4216